=== PATIENT | male | born 1985 ===

== ENCOUNTER 2018-09-04 23:58 | Inpatient (IN) | payer OTHER ==
[2018-09-05 00:44] LABS: BASO # 0.1 K/uL (0.0-0.2); EOS # 0.2 K/uL (0.0-0.7); EOS % 2.9 % (0.0-4.0); HEMOGLOBIN 11.1 g/dL (12.0-18.0); LYMPH % 14.2 % (20.0-40.0); MEAN CELL VOLUME 88.9 fl (80.0-94.0); MEAN CORPUSCULAR HEMOGLOBIN 30.9 pg (27.0-31.0); MEAN CORPUSCULAR HGB CONC 34.8 g/dL (33.0-37.0); MEAN PLATELET VOLUME 8.2 fl (7.2-11.7); MONO # 0.5 K/uL (0.0-0.8); NEUT # 5.1 K/uL (1.8-7.0); NEUT % 74.9 % (50.0-75.0); RBC 3.58 Mil/uL (4.40-5.90); RED CELL DISTRIBUTION WIDTH 13.3 % (11.5-14.5); WHITE BLOOD COUNT 6.9 K/uL (4.8-10.8)
[2018-09-05 00:57] LABS: ALB/GLOB RATIO 1.1 (1.0-2.1); ALBUMIN 3.3 g/dL (3.5-5.0); ALT/SGPT 62 U/L (21-72); AST/SGOT 104 U/L (17-59); BLOOD UREA NITROGEN 74 mg/dl (9-20); CALCIUM 7.5 mg/dL (8.4-10.2); GFR NON-AFRICAN AMERICAN 7
--- NOTE | 2018-09-05 01:28 | ED PDOC ---
HPI: Hypertension/Hypotension Time Seen by Provider: 09/05/18 00:08 Chief Complaint (Nursing): High Blood Pressure Chief Complaint (Provider): HTN History Per: Patient History/Exam Limitations: no limitations Onset/Duration Of Symptoms: Days (x3 months), Worse Since (today) Current Symptoms Are (Timing): Still Present Additional Complaint(s): 32 year old male presents to the ED for evaluation of hypertension. He reports that three months ago, he was taken to [place] for intoxication, and upon d/c was informed he had HTN, but was not given outpatient follow up or medications. 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 Otherwise, denies chest pain and headache. PMD: none provided Past Medical History Reviewed: Historical Data, Nursing Documentation, Vital Signs Vital Signs: Last Vital Signs Temp 98.9 F 09/05/18 00:00 Pulse 89 09/05/18 00:49 Resp 20 09/05/18 00:00 BP 210/108 H 09/05/18 00:49 Pulse Ox 98 09/05/18 00:00 - Medical History PMH: HTN - Surgical History Surgical History: No Surg Hx - Family History Family History: States: Unknown Family Hx - Social History Current smoker - smoking cessation education provided: No Alcohol: None Drugs: Denies - Allergies Allergies/Adverse Reactions: Allergies Allergy/AdvReac Type Severity Reaction Status Date / Time No Known Allergies Allergy Verified 09/05/18 00:02 Review of Systems ROS Statement: Except As Marked, All Systems Reviewed And Found Negative Constitutional: Positive for: Weakness Cardiovascular: Negative for: Chest Pain Respiratory: Positive for: Shortness of Breath Neurological: Negative for: Headache Physical Exam - Reviewed Nursing Documentation Reviewed: Yes Vital Signs Reviewed: Yes - Physical Exam Appears: Positive for: No Acute Distress (but hypertensive) Head Exam: Positive for: ATRAUMATIC (but with old scar to left side of head from "traumatic head injury" 7 months ago), NORMOCEPHALIC Skin: Positive for: Normal Color, Warm, Dry Eye Exam: Positive for: Normal appearance, EOMI, PERRL ENT: Positive for: Normal ENT Inspection Neck: Positive for: Normal, Painless ROM, Supple Cardiovascular/Chest: Positive for: Regular Rate, Rhythm Respiratory: Positive for: Normal Breath Sounds. Negative for: Respiratory Dis tress Gastrointestinal/Abdominal: Positive for: Normal Exam, Soft. Negative for: Tenderness Neurologic/Psych: Positive for: Alert, Oriented (x3) - Laboratory Results Result Diagrams: 09/05/18 00:30 09/05/18 00:30 - ECG O2 Sat by Pulse Oximetry: 98 (RA) Pulse Ox Interpretation: Normal Medical Decision Making Medical Decision Making: Time: 14 Initial Impression: 32 year old male with accelerated HTN Initial Plan: --EKG --Alcohol serum --CMP --Drug screen --U-dip --CBC with differential --CXR --Norvasc 10mg PO --Urinalysis 0148 Labs reviewed and indicative of an acute kidney injury in setting of accelerated HTN. Patient uninsured and will require admission for further treatment. Pt in fair condition. [address] Perdomo, spinning bath person, about case. Scribe Attestation: Documented by Desiree Kingsley, acting as a scribe for Chris Maxwell MD. Provider Scribe Attestation: All medical record entries made by the Scribe were at my direction and personally dictated by me. I have reviewed the chart and agree that the record accurately reflects my personal performance of the history, physical exam, medical decision making, and the department course for this patient. I have also personally directed, reviewed, and agree with the discharge instructions and disposition. Disposition - Clinical Impression Clinical Impression: MADAI (acute kidney injury), Accelerated hypertension - Patient ED Disposition Is Patient to be Admitted: Yes - Disposition Disposition Time: 01:45 Condition: FAIR
[2018-09-05 02:28] LABS: URINE BILIRUBIN NEGATIVE (NEGATIVE); URINE BLOOD SMALL (NEGATIVE); URINE CLARITY CLEAR (Clear); URINE COLOR STRAW (YELLOW); URINE GLUCOSE (UA) 50 mg/dL (Normal); URINE LEUKOCYTE ESTERASE NEG Leu/uL (Negative); URINE PROTEIN >=500 mg/dL (NEGATIVE); URINE UROBILINOGEN 0.2-1.0 mg/dL (0.2-1.0)
[2018-09-05 02:29] LABS: SQUAMOUS EPITHIAL 6 /hpf (0-5)
[2018-09-05 02:36] LABS: BARBITURATES, UR NEGATIVE (NEGATIVE); BENZODIAZEPINES, UR NEGATIVE (NEGATIVE); OPIATES, UR NEGATIVE (NEGATIVE); PHENCYCLIDINE, UR NEGATIVE (NEGATIVE)
--- NOTE | 2018-09-05 03:10 | CP.PCM.HP ---
Addendum entered and electronically signed by Barby Hernández DO 09/05/18 13:22: Seen, examined, and discussed with resident. Also discussed with Cardiology. Patient was evaluated by Nephrology. Consults all appreciated and followed. Patient with EKG changes this AM, possibly concerning with ischemic changes vs. LVH in setting of acute renal failure. Patient requiring dialysis, to get temp cath placed today by IR. Will initiate low dose BB. ASA, plavix post placement of temp cath. ECHO also ordered and pending. Addendum entered and electronically signed by Mya Hunt MD 09/05/18 10:24: Pt seen and examined by ED this AM. 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 Pt came to the ED for not feeling well and vague discomfort which he attributes to his BP, feels a little better now. Denies chest pain, dyspnea, palpatations, diaphoresis, n/v/d/c headaches and dizziness. O: VS reviewed, hypertensive GEN: NAD C: S1S2, no murmurs R: clear breath sounds b/l A: BS+, soft, NT Neuro: AAO x 3 Ext: non-tender, no edema A/P: 32 YO male admitted for acute renal failure. New findings sig for pers istent elevated creatinine despite hydration. Additionally there was ST wave changes in new EKG this AM along with elevated trop x 1, asymptomatic. -cardiology consulted; likely trop elevation 2/2 to renal failure, unlikely to be cardiac in nature. Beta rebecca, statin and asa to be started later. -nephrology consulted; likely need dialysis due to renal failure -IR consulted for cath for dialysis -echo ordered, renal u/s ordered -labs pending -will order low dose beta rebecca as per cardiology Original Note: <Fanta Rubi - Last Filed: 09/05/18 06:29> History of Present Illness - History of Present Illness History of Present Illness: 32 year old male presented with complaints of chest discomfort that began prior to arrival in ED. He endorses that he was diagnosed with high blood pressure approximately 3 months ago at [place] and was told to follow up outpatient. He does not take medication and did not seek medical care after this. He denies feeling any headaches, chest pain, abdominal pain, nausea, vomiting, changes in urination, myalgias, pedal edema. He reports that he has noted some dyspnea on exertion lately. He does not have family hx of renal disease. Mother is hypertensive. He currently has no complaints in ED. PMH: HTN Medications: none Allergies: NKDA Social: light smoker- one cig/week, social drinker now, used to be heavy drinker Surgical Hx: denies FAmily hx: mother HTN Present on Admission - Present on Admission Any Indicators Present on Admission: No Review of Systems - Constitutional Constitutional: absent: Chills, Fever, Headache - EENT Eyes: absent: Blurred Vision, Change in Vision Ears: absent: Dizziness - Cardiovascular Cardiovascular: Chest Pain, Dyspnea on Exertion. absent: Leg Edema, Lightheadedness, Pedal Edema, Radiating Pain, Rapid Heart Rate - Respiratory Respiratory: absent: Cough - Gastrointestinal Gastrointestinal: absent: Abdominal Pain, Nausea, Vomiting - Genitourinary Genitourinary: absent: Change in Urinary Stream, Dysuria, Hematuria, Urinary Urg ency, Voiding Freq/Small Amts - Musculoskeletal Musculoskeletal: absent: Myalgias, Tingling - Integumentary Integumentary: absent: Jaundice Past Patient History - Past Social History Alcohol: None Drugs: Denies - CARDIAC Hx Hypertension: Yes - PSYCHIATRIC Hx Substance Use: No Meds Allergies/Adverse Reactions: Allergies Allergy/AdvReac Type Severity Reaction Status Date / Time No Known Allergies Allergy Verified 09/05/18 00:02 Physical Exam - Constitutional Appears: Well, Non-toxic, No Acute Distress - Head Exam Head Exam: ATRAUMATIC, NORMAL INSPECTION, NORMOCEPHALIC - Eye Exam Eye Exam: EOMI, Normal appearance, PERRL Additional comments: b/l pterygium - Neck Exam Neck exam: Positive for: Normal Inspection - Respiratory Exam Respiratory Exam: Clear to Auscultation Bilateral, NORMAL BREATHING PATTERN. absent: Rales, Rhonchi, Wheezes, Respiratory Distress - Cardiovascular Exam Cardiovascular Exam: REGULAR RHYTHM, +S1, +S2. absent: Tachycardia - GI/Abdominal Exam GI & Abdominal Exam: Normal Bowel Sounds, Soft. absent: Distended, Guarding, Tenderness - Extremities Exam Extremities exam: Positive for: normal inspection. Negative for: pedal edema - Back Exam Back exam: NORMAL INSPECTION - Neurological Exam Neurological exam: Alert - Psychiatric Exam Psychiatric exam: Normal Affect, Normal Mood - Skin Skin Exam: Dry, Intact, Normal Color, Warm Results - Vital Signs Recent Vital Signs: Last Vital Signs Temp 98.9 F 09/05/18 00:00 Pulse 84 09/05/18 02:51 Resp 16 09/05/18 02:51 BP 150/86 09/05/18 02:51 Pulse Ox 96 09/05/18 02:51 - Labs Result Diagrams: 09/05/18 00:30 09/05/18 00:30 Labs: Laboratory Results - last 24 hr 09/05/18 09/05/18 09/05/18 00:30 00:30 01:58 WBC 6.9 RBC 3.58 L Hgb 11.1 L Hct 31.8 L MCV 88.9 MCH 30.9 MCHC 34.8 RDW 13.3 Plt Count 158 MPV 8.2 Neut % (Auto) 74.9 Lymph % (Auto) 14.2 L [place] % (Auto) 7.0 Eos % (Auto) 2.9 Baso % (Auto) 1.0 Neut # (Auto) 5.1 Lymph # (Auto) 1.0 [place] # (Auto) 0.5 Eos # (Auto) 0.2 Baso # (Auto) 0.1 Sodium 133 Potassium 3.4 L Chloride 103 Carbon Dioxide 20 L Anion Gap 13 BUN 74 H Creatinine 9.2 H* Est GFR ( Amer) 8 Est GFR (Non-Af Amer) 7 Random Glucose 103 Serum Osmolality Calcium 7.5 L Total Bilirubin 0.4 AST 104 H ALT 62 Alkaline Phosphatase 104 Total Protein 6.4 Albumin 3.3 L Globulin 3.1 Albumin/Globulin Ratio 1.1 Urine Color Urine Clarity Urine pH Ur Specific [place] Urine Protein Urine Glucose (UA) Urine Ketones Urine Blood Urine Nitrate Urine Bilirubin Urine Urobilinogen Ur Leukocyte Esterase Urine RBC (Auto) Urine Microscopic WBC Ur Squamous Epith Cells Urine Osmolality Ur Random Sodium Ur Random Potassium Urine Opiates Screen Negative Urine Methadone Screen Negative Ur Barbiturates Screen Negative Ur Phencyclidine Scrn Negative Ur Amphetamines Screen Negative U Benzodiazepines Scrn Negative U Oth Cocaine Metabols Negative U Cannabinoids Screen Negative Alcohol, Quantitative < 10 09/05/18 09/05/18 09/05/18 01:58 01:58 01:58 WBC RBC Hgb Hct MCV MCH MCHC RDW Plt Count MPV Neut % (Auto) Lymph % (Auto) [place] % (Auto) Eos % (Auto) Baso % (Auto) Neut # (Auto) Lymph # (Auto) [place] # (Auto) Eos # (Auto) Baso # (Auto) Sodium Potassium Chloride Carbon Dioxide Anion Gap BUN Creatinine Est GFR ( Amer) Est GFR (Non-Af Amer) Random Glucose Serum Osmolality 316 H Calcium Total Bilirubin AST ALT Alkaline Phosphatase Total Protein Albumin Globulin Albumin/Globulin Ratio Urine Color Straw Urine Clarity Clear Urine pH 7.0 Ur Specific [place] 1.008 Urine Protein >=500 Urine Glucose (UA) 50 Urine Ketones Negative Urine Blood Small Urine Nitrate Negative Urine Bilirubin Negative Urine Urobilinogen 0.2-1.0 Ur Leukocyte Esterase Neg Urine RBC (Auto) 15 H Urine Microscopic WBC 13 H Ur Squamous Epith Cells 6 H Urine Osmolality 260 L Ur Random Sodium 51 Ur Random Potassium 20.7 Urine Opiates Screen Urine Methadone Screen Ur Barbiturates Screen Ur Phencyclidine Scrn Ur Amphetamines Screen U Benzodiazepines Scrn U Oth Cocaine Metabols U Cannabinoids Screen Alcohol, Quantitative Assessment & Plan - Assessment and Plan (Free Text) Assessment: 32 year old male presented with complaints of chest pain, found to have acute kidney injury. 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 MADAI could be prerenal vs intrinsic renal disease. Rule out rhabdo, pheochromocytoma, vasculitic dz. He is currently hypertensive in ED but is asymptomatic, received norvasc and clonidine in ED. #Acute Kidney Injury #Proteinuria #Anemia #DVT prophylaxis -IVF -follow up labs -Renal u/s and renal doppler -Monitor Ins / Outs -Monitor BP -Nephrology consult -SCDs Patient seen and examined with attending. <Fadi Baca - Last Filed: 09/05/18 06:59> Results - Vital Signs Recent Vital Signs: Last Vital Signs Temp 98.0 F 09/05/18 05:34 Pulse 79 09/05/18 06:37 Resp 16 09/05/18 06:36 BP 156/97 H 09/05/18 06:37 Pulse Ox 94 L 09/05/18 06:36 - Labs Result Diagrams: 09/05/18 05:30 09/05/18 00:30 Labs: Laboratory Results - last 24 hr 09/05/18 09/05/18 09/05/18 00:30 00:30 01:58 WBC 6.9 RBC 3.58 L Hgb 11.1 L Hct 31.8 L MCV 88.9 MCH 30.9 MCHC 34.8 RDW 13.3 Plt Count 158 MPV 8.2 Neut % (Auto) 74.9 Lymph % (Auto) 14.2 L [place] % (Auto) 7.0 Eos % (Auto) 2.9 Baso % (Auto) 1.0 Neut # (Auto) 5.1 Lymph # (Auto) 1.0 [place] # (Auto) 0.5 Eos # (Auto) 0.2 Baso # (Auto) 0.1 Sodium 133 Potassium 3.4 L Chloride 103 Carbon Dioxide 20 L Anion Gap 13 BUN 74 H Creatinine 9.2 H* Est GFR ( Amer) 8 Est GFR (Non-Af Amer) 7 Random Glucose 103 Serum Osmolality Calcium 7.5 L Phosphorus Magnesium Total Bilirubin 0.4 AST 104 H ALT 62 Alkaline Phosphatase 104 Total Creatine Kinase Total Protein 6.4 Albumin 3.3 L Globulin 3.1 Albumin/Globulin Ratio 1.1 Triglycerides Cholesterol LDL Cholesterol Direct HDL Cholesterol Urine Color Urine Clarity Urine pH Ur Specific [place] Urine Protein Urine Glucose (UA) Urine Ketones Urine Blood Urine Nitrate Urine Bilirubin Urine Urobilinogen Ur Leukocyte Esterase Urine RBC (Auto) Urine Microscopic WBC Ur Squamous Epith Cells Urine Osmolality Ur Random Sodium Ur Random Potassium Urine Opiates Screen Negative Urine Methadone Screen Negative Ur Barbiturates Screen Negative Ur Phencyclidine Scrn Negative Ur Amphetamines Screen Negative U Benzodiazepines Scrn Negative U Oth Cocaine Metabols Negative U Cannabinoids Screen Negative Alcohol, Quantitative < 10 09/05/18 09/05/18 09/05/18 01:58 01:58 01:58 WBC RBC Hgb Hct MCV MCH MCHC RDW Plt Count MPV Neut % (Auto) Lymph % (Auto) [place] % (Auto) Eos % (Auto) Baso % (Auto) Neut # (Auto) Lymph # (Auto) [place] # (Auto) Eos # (Auto) Baso # (Auto) Sodium Potassium Chloride Carbon Dioxide Anion Gap BUN Creatinine Est GFR ( Amer) Est GFR (Non-Af Amer) Random Glucose Serum Osmolality 316 H Calcium Phosphorus Magnesium Total Bilirubin AST ALT Alkaline Phosphatase Total Creatine Kinase Total Protein Albumin Globulin Albumin/Globulin Ratio Triglycerides Cholesterol LDL Cholesterol Direct HDL Cholesterol Urine Color Straw Urine Clarity Clear Urine pH 7.0 Ur Specific [place] 1.008 Urine Protein >=500 Urine Glucose (UA) 50 Urine Ketones Negative Urine Blood Small Urine Nitrate Negative Urine Bilirubin Negative Urine Urobilinogen 0.2-1.0 Ur Leukocyte Esterase Neg Urine RBC (Auto) 15 H Urine Microscopic WBC 13 H Ur Squamous Epith Cells 6 H Urine Osmolality 260 L Ur Random Sodium 51 Ur Random Potassium 20.7 Urine Opiates Screen Urine Methadone Screen Ur Barbiturates Screen Ur Phencyclidine Scrn Ur Amphetamines Screen U Benzodiazepines Scrn U Oth Cocaine Metabols U Cannabinoids Screen Alcohol, Quantitative 09/05/18 09/05/18 09/05/18 04:40 05:00 05:30 WBC 5.8 RBC 3.55 L Hgb 10.9 L Hct 31.6 L MCV 88.8 MCH 30.5 MCHC 34.4 RDW 13.3 Plt Count 143 MPV Neut % (Auto) Lymph % (Auto) [place] % (Auto) Eos % (Auto) Baso % (Auto) Neut # (Auto) Lymph # (Auto) [place] # (Auto) Eos # (Auto) Baso # (Auto) Sodium Potassium Chloride Carbon Dioxide Anion Gap BUN Creatinine Est GFR ( Amer) Est GFR (Non-Af Amer) Random Glucose Serum Osmolality Calcium Phosphorus 5.4 H Magnesium 2.4 H Total Bilirubin AST ALT Alkaline Phosphatase Total Creatine Kinase 341 H Total Protein Albumin Globulin Albumin/Globulin Ratio Triglycerides 184 H Cholesterol 245 H LDL Cholesterol Direct 137 H HDL Cholesterol 66 Urine Color Urine Clarity Urine pH Ur Specific [place] Urine Protein Urine Glucose (UA) Urine Ketones Urine Blood Urine Nitrate Urine Bilirubin Urine Urobilinogen Ur Leukocyte Esterase Urine RBC (Auto) Urine Microscopic WBC Ur Squamous Epith Cells Urine Osmolality Ur Random Sodium Ur Random Potassium Urine Opiates Screen Urine Methadone Screen Ur Barbiturates Screen Ur Phencyclidine Scrn Ur Amphetamines Screen U Benzodiazepines Scrn U Oth Cocaine Metabols U Cannabinoids Screen Alcohol, Quantitative Assessment & Plan - Assessment and Plan (Free Text) Plan: agree with assessment and plan as above. 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 He admitted to me that he doesn't drink but like 1-2 cups of water in a 24 hr period. He sweats a lot in his job and doesn't drink water, at the time of my exam he was clinically dry with poor skin turgor and dry mouth with cracked lips. Last intake of water yesterday at around 6-7 pm he says. Need to rule out Rhabdomyolysis, knowing this information, will also order HTN workup which could include for Pheo, Polycystic kidneys, Lupus nephritis, etc. but in my opininion will await cpk levels and give him hydration for now. PT was here with malignant blood pressure and hypertensive emergency and received clonidine and norvasc with results. Will continue norvasc and adjust medications PRN. Will endorse to AM TEAM. - Date & Time Date: 09/05/18 Time: 06:59
[2018-09-05] MEDS ORDERED: Sodium Chloride 0.9% 500 ML IV ONE (06:10)
[2018-09-05 06:28] LABS: HEMOGLOBIN 10.9 g/dL (12.0-18.0); MEAN CELL VOLUME 88.8 fl (80.0-94.0); MEAN CORPUSCULAR HEMOGLOBIN 30.5 pg (27.0-31.0); MEAN CORPUSCULAR HGB CONC 34.4 g/dL (33.0-37.0); RBC 3.55 Mil/uL (4.40-5.90); RED CELL DISTRIBUTION WIDTH 13.3 % (11.5-14.5); WHITE BLOOD COUNT 5.8 K/uL (4.8-10.8)
[2018-09-05] MEDS: Sodium Chloride 0.9% 1,000 ML IV SCH (06:40)
[2018-09-05 06:53] LABS: CALCIUM 7.6 mg/dL (8.4-10.2)
[2018-09-05] MEDS ORDERED: Potassium Chloride 20 mEq ER Tab PO ONE ×2 (06:59→07:16)
[2018-09-05 07:39] LABS: TROPONIN I 0.452 ng/mL (0.00-0.120)
--- NOTE | 2018-09-05 08:43 | RAD ---
Date of service: 09/05/2018 HISTORY: Chest pain COMPARISON: No prior. FINDINGS: LUNGS: The lungs are well inflated. There is mild pulmonary venous congestion. PLEURA: No pleural effusions or pneumothorax. CARDIOVASCULAR: There is severe cardiomegaly. No aortic atherosclerotic calcification present. OSSEOUS STRUCTURES: Within normal limits for the patient's age. VISUALIZED UPPER ABDOMEN: Normal. OTHER FINDINGS: None. IMPRESSION: Severe cardiomegaly and mild pulmonary venous congestion. No acute findings.
--- NOTE | 2018-09-05 10:32 | CP.PCM.CON ---
History of Present Illness - History of Present Illness History of Present Illness: This 32-year-old man came to the emergency room because "he did not feel well". He denies any specific complaints of chest chest pain or shortness of breath. 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 He was told of being a hypertensive 3 months back during a visit to the emergency room at [facility]. He has not taken any particular medication. He smokes approximately a single cigarette a day. He denies any history of diabetes He denies any history of pedal edema or orthopnea. He is able to carry on a conversation while lying virtually flat in bed. Physical examination shows a young man who is alert awake coherent afebrile and breathes at 16 breaths per minute while lying flat in bed and indicates that his free of any particular symptom at this time. His heart rate was 70 bpm and his blood pressure was 150/100 mmHg. His jugular venous pressure was not elevated and there was no edema over his lower extremities. The pedal pulses were well fe lt. There were no carotid bruits. The apex was not palpable. The first and second heart sounds were normal. There was no murmur or gallop. There were no rales. His abdomen was soft and liver and spleen are not palpable. His electrocardiogram taken around midnight shows sinus rhythm with left ventric ular hypertrophy and attendant ST-T changes. An electrocardiogram taken this morning at 9:30 shows left ventricular hypertrophy with more pronounced T-wave inversion in leads V2 and V3 which was not seen on earlier electrocardiogram. The patient has not reported any particular symptom prior to the second electrocardiogram. Lab data shows a normocytic normochromic anemia with severe as ischemia in the form of a BUN at 70 mg percent and creatinine 9.5 mg percent. His serum potassium was 3.4 mEq per liter. Serum troponin level was 0.45 g per mL Impression: Uremia probably secondary to hypertension. Left ventricular hypertrophy secondary to hypertension. Mildly elevated troponin in a random blood sample in presence of severe azotemia. The electro-cardiographic changes noted at 9:30 AM are also on a random EKG taken without any particular episode of chest discomfort that has occurred betwe en the first and second electro-cardiogram. I doubt that the patient has acute coronary syndrome. He is hemodynamically stable and free of any chest discomfort and requires urgent hemodialysis. I have discussed this with the alarm service technician. The patient will get an echocardiogram to evaluate his left ventricular systolic function. In the meantime he has been started on antihypertensives with significant improvement in his blood pressure. Past Patient History - Past Social History Alcohol: None Drugs: Denies - CARDIAC Hx Hypertension: Yes - PSYCHIATRIC Hx Substance Use: No Meds Allergies/Adverse Reactions: Allergies Allergy/AdvReac Type Severity Reaction Status Date / Time No Known Allergies Allergy Verified 09/05/18 00:02 - Medications Medications: Current Medications Amlodipine Besylate (Norvasc) 10 mg PO DAILY JM Hydralazine HCl (Apresoline) 10 mg PO TID PRN PRN Reason: Systolic Blood Pressure Sodium Chloride (Sodium Chloride 0.9%) 1,000 mls @ 75 mls/hr IV .[id number] JM Stop: 09/06/18 06:06 Last Admin: 09/05/18 06:40 Dose: 75 mls/hr Results - Vital Signs Recent Vital Signs: Last Vital Signs Temp 98.0 F 09/05/18 05:34 Pulse 81 09/05/18 09:31 Resp 17 09/05/18 09:31 BP 166/99 H 09/05/18 09:31 Pulse Ox 97 09/05/18 09:31 - Labs Result Diagrams: 09/05/18 05:30 09/05/18 05:30 Labs: Laboratory Results - last 24 hr 09/05/18 09/05/18 09/05/18 00:30 00:30 01:58 WBC 6.9 RBC 3.58 L Hgb 11.1 L Hct 31.8 L MCV 88.9 MCH 30.9 MCHC 34.8 RDW 13.3 Plt Count 158 MPV 8.2 Neut % (Auto) 74.9 Lymph % (Auto) 14.2 L [place] % (Auto) 7.0 Eos % (Auto) 2.9 Baso % (Auto) 1.0 Neut # (Auto) 5.1 Lymph # (Auto) 1.0 [place] # (Auto) 0.5 Eos # (Auto) 0.2 Baso # (Auto) 0.1 Sodium 133 Potassium 3.4 L Chloride 103 Carbon Dioxide 20 L Anion Gap 13 BUN 74 H Creatinine 9.2 H* Est GFR ( Amer) 8 Est GFR (Non-Af Amer) 7 Random Glucose 103 Serum Osmolality Calcium 7.5 L Phosphorus Magnesium Total Bilirubin 0.4 AST 104 H ALT 62 Alkaline Phosphatase 104 Total Creatine Kinase Troponin I Total Protein 6.4 Albumin 3.3 L Globulin 3.1 Albumin/Globulin Ratio 1.1 Triglycerides Cholesterol LDL Cholesterol Direct HDL Cholesterol TSH 3rd Generation Urine Color Urine Clarity Urine pH Ur Specific [place] Urine Protein Urine Glucose (UA) Urine Ketones Urine Blood Urine Nitrate Urine Bilirubin Urine Urobilinogen Ur Leukocyte Esterase Urine RBC (Auto) Urine Microscopic WBC Ur Squamous Epith Cells Urine Osmolality Ur Random Sodium Ur Random Potassium Urine Opiates Screen Negative Urine Methadone Screen Negative Ur Barbiturates Screen Negative Ur Phencyclidine Scrn Negative Ur Amphetamines Screen Negative U Benzodiazepines Scrn Negative U Oth Cocaine Metabols Negative U Cannabinoids Screen Negative Alcohol, Quantitative < 10 09/05/18 09/05/18 09/05/18 01:58 01:58 01:58 WBC RBC Hgb Hct MCV MCH MCHC RDW Plt Count MPV Neut % (Auto) Lymph % (Auto) [place] % (Auto) Eos % (Auto) Baso % (Auto) Neut # (Auto) Lymph # (Auto) [place] # (Auto) Eos # (Auto) Baso # (Auto) Sodium Potassium Chloride Carbon Dioxide Anion Gap BUN Creatinine Est GFR ( Amer) Est GFR (Non-Af Amer) Random Glucose Serum Osmolality 316 H Calcium Phosphorus Magnesium Total Bilirubin AST ALT Alkaline Phosphatase Total Creatine Kinase Troponin I Total Protein Albumin Globulin Albumin/Globulin Ratio Triglycerides Cholesterol LDL Cholesterol Direct HDL Cholesterol TSH 3rd Generation Urine Color Straw Urine Clarity Clear Urine pH 7.0 Ur Specific [place] 1.008 Urine Protein >=500 Urine Glucose (UA) 50 Urine Ketones Negative Urine Blood Small Urine Nitrate Negative Urine Bilirubin Negative Urine Urobilinogen 0.2-1.0 Ur Leukocyte Esterase Neg Urine RBC (Auto) 15 H Urine Microscopic WBC 13 H Ur Squamous Epith Cells 6 H Urine Osmolality 260 L Ur Random Sodium 51 Ur Random Potassium 20.7 Urine Opiates Screen Urine Methadone Screen Ur Barbiturates Screen Ur Phencyclidine Scrn Ur Amphetamines Screen U Benzodiazepines Scrn U Oth Cocaine Metabols U Cannabinoids Screen Alcohol, Quantitative 09/05/18 09/05/18 09/05/18 04:40 05:00 05:30 WBC 5.8 RBC 3.55 L Hgb 10.9 L Hct 31.6 L MCV 88.8 MCH 30.5 MCHC 34.4 RDW 13.3 Plt Count 143 MPV Neut % (Auto) Lymph % (Auto) [place] % (Auto) Eos % (Auto) Baso % (Auto) Neut # (Auto) Lymph # (Auto) [place] # (Auto) Eos # (Auto) Baso # (Auto) Sodium Potassium Chloride Carbon Dioxide Anion Gap BUN Creatinine Est GFR ( Amer) Est GFR (Non-Af Amer) Random Glucose Serum Osmolality Calcium Phosphorus 5.4 H Magnesium 2.4 H Total Bilirubin AST ALT Alkaline Phosphatase Total Creatine Kinase 341 H Troponin I Total Protein Albumin Globulin Albumin/Globulin Ratio Triglycerides 184 H Cholesterol 245 H LDL Cholesterol Direct 137 H HDL Cholesterol 66 TSH 3rd Generation Urine Color Urine Clarity Urine pH Ur Specific [place] Urine Protein Urine Glucose (UA) Urine Ketones Urine Blood Urine Nitrate Urine Bilirubin Urine Urobilinogen Ur Leukocyte Esterase Urine RBC (Auto) Urine Microscopic WBC Ur Squamous Epith Cells Urine Osmolality Ur Random Sodium Ur Random Potassium Urine Opiates Screen Urine Methadone Screen Ur Barbiturates Screen Ur Phencyclidine Scrn Ur Amphetamines Screen U Benzodiazepines Scrn U Oth Cocaine Metabols U Cannabinoids Screen Alcohol, Quantitative 09/05/18 09/05/18 05:30 06:54 WBC RBC Hgb Hct MCV MCH MCHC RDW Plt Count MPV Neut % (Auto) Lymph % (Auto) [place] % (Auto) Eos % (Auto) Baso % (Auto) Neut # (Auto) Lymph # (Auto) [place] # (Auto) Eos # (Auto) Baso # (Auto) Sodium 134 Potassium 3.4 L Chloride 105 Carbon Dioxide 21 L Anion Gap 11 BUN 70 H Creatinine 9.5 H* Est GFR ( Amer) 8 Est GFR (Non-Af Amer) 6 Random Glucose 87 Serum Osmolality Calcium 7.6 L Phosphorus Magnesium Total Bilirubin AST ALT Alkaline Phosphatase Total Creatine Kinase 328 H Troponin I 0.4520 H* Total Protein Albumin Globulin Albumin/Globulin Ratio Triglycerides Cholesterol LDL Cholesterol Direct HDL Cholesterol TSH 3rd Generation 4.60 Urine Color Urine Clarity Urine pH Ur Specific [place] Urine Protein Urine Glucose (UA) Urine Ketones Urine Blood Urine Nitrate Urine Bilirubin Urine Urobilinogen Ur Leukocyte Esterase Urine RBC (Auto) Urine Microscopic WBC Ur Squamous Epith Cells Urine Osmolality Ur Random Sodium Ur Random Potassium Urine Opiates Screen Urine Methadone Screen Ur Barbiturates Screen Ur Phencyclidine Scrn Ur Amphetamines Screen U Benzodiazepines Scrn U Oth Cocaine Metabols U Cannabinoids Screen Alcohol, Quantitative
--- NOTE | 2018-09-05 10:36 | CP.PCM.CON ---
History of Present Illness - History of Present Illness History of Present Illness: 32 y/o male with Hx/o HTN presented to ER for c/o not feeling well,generalized weakness sob on & off & CP before arriving in ER. Pt was noted to have BUN/ Creat of 74/9.2. In addition Pts blood pressure was 210/108. Hence renal Consult is requested . Pt reported that he has not been feeling well for 3 mos. He went to [facility] & was told that his BP was high & that he should f/u with his doctor. Pt was unable to have medical f/u. Pt denied any other medical problems. Denied any FHx/o Kidney dis. Review of Systems - Constitutional Constitutional: As Per HPI Past Patient History - Past Social History Alcohol: None Drugs: Denies - CARDIAC Hx Hypertension: Yes - PSYCHIATRIC Hx Substance Use: No Meds Allergies/Adverse Reactions: Allergies Allergy/AdvReac Type Severity Reaction Status Date / Time No Known Allergies Allergy Verified 09/05/18 00:02 - Medications Medications: Current Medications Amlodipine Besylate (Norvasc) 10 mg PO DAILY JM Carvedilol (Coreg) 6.25 mg PO Q12 JM Hydralazine HCl (Apresoline) 10 mg PO TID PRN PRN Reason: Systolic Blood Pressure Sodium Chloride (Sodium Chloride 0.9%) 1,000 mls @ 75 mls/hr IV .[id number] JM Stop: 09/06/18 06:06 Last Admin: 09/05/18 06:40 Dose: 75 mls/hr Physical Exam - Constitutional Additional comments: Appears uncomfortable because of generalized malaise. No dyspnea noted No asterixis - Head Exam Head Exam: ATRAUMATIC, NORMOCEPHALIC - Eye Exam Additional comments: Conjunctiva pale .Sclera anicteric - ENT Exam ENT Exam: Mucous Membranes Moist - Neck Exam Additional comments: No jugular venous distension - Respiratory Exam Respiratory Exam: NORMAL BREATHING PATTERN Additional comments: Slightly diminished BS at bases - Cardiovascular Exam Cardiovascular Exam: REGULAR RHYTHM Additional comments: Friction rub audible at LSB - GI/Abdominal Exam GI & Abdominal Exam: Soft Additional comments: No tenderness. Liver span is normal No mass No CVA tenderness - Rectal Exam Rectal Exam: Deferred - Extremities Exam Additional comments: No ECC PP palp Results - Vital Signs Recent Vital Signs: Last Vital Signs Temp 98.0 F 09/05/18 05:34 Pulse 81 09/05/18 09:31 Resp 17 09/05/18 09:31 BP 166/99 H 09/05/18 09:31 Pulse Ox 97 09/05/18 09:31 - Labs Result Diagrams: 09/05/18 05:30 09/05/18 05:30 Labs: Laboratory Results - last 24 hr 09/05/18 09/05/18 09/05/18 00:30 00:30 01:58 WBC 6.9 RBC 3.58 L Hgb 11.1 L Hct 31.8 L MCV 88.9 MCH 30.9 MCHC 34.8 RDW 13.3 Plt Count 158 MPV 8.2 Neut % (Auto) 74.9 Lymph % (Auto) 14.2 L [place] % (Auto) 7.0 Eos % (Auto) 2.9 Baso % (Auto) 1.0 Neut # (Auto) 5.1 Lymph # (Auto) 1.0 [place] # (Auto) 0.5 Eos # (Auto) 0.2 Baso # (Auto) 0.1 Sodium 133 Potassium 3.4 L Chloride 103 Carbon Dioxide 20 L Anion Gap 13 BUN 74 H Creatinine 9.2 H* Est GFR ( Amer) 8 Est GFR (Non-Af Amer) 7 Random Glucose 103 Serum Osmolality Calcium 7.5 L Phosphorus Magnesium Total Bilirubin 0.4 AST 104 H ALT 62 Alkaline Phosphatase 104 Total Creatine Kinase Troponin I Total Protein 6.4 Albumin 3.3 L Globulin 3.1 Albumin/Globulin Ratio 1.1 Triglycerides Cholesterol LDL Cholesterol Direct HDL Cholesterol TSH 3rd Generation Urine Color Urine Clarity Urine pH Ur Specific [place] Urine Protein Urine Glucose (UA) Urine Ketones Urine Blood Urine Nitrate Urine Bilirubin Urine Urobilinogen Ur Leukocyte Esterase Urine RBC (Auto) Urine Microscopic WBC Ur Squamous Epith Cells Urine Osmolality Ur Random Sodium Ur Random Potassium Urine Opiates Screen Negative Urine Methadone Screen Negative Ur Barbiturates Screen Negative Ur Phencyclidine Scrn Negative Ur Amphetamines Screen Negative U Benzodiazepines Scrn Negative U Oth Cocaine Metabols Negative U Cannabinoids Screen Negative Alcohol, Quantitative < 10 09/05/18 09/05/18 09/05/18 01:58 01:58 01:58 WBC RBC Hgb Hct MCV MCH MCHC RDW Plt Count MPV Neut % (Auto) Lymph % (Auto) [place] % (Auto) Eos % (Auto) Baso % (Auto) Neut # (Auto) Lymph # (Auto) [place] # (Auto) Eos # (Auto) Baso # (Auto) Sodium Potassium Chloride Carbon Dioxide Anion Gap BUN Creatinine Est GFR ( Amer) Est GFR (Non-Af Amer) Random Glucose Serum Osmolality 316 H Calcium Phosphorus Magnesium Total Bilirubin AST ALT Alkaline Phosphatase Total Creatine Kinase Troponin I Total Protein Albumin Globulin Albumin/Globulin Ratio Triglycerides Cholesterol LDL Cholesterol Direct HDL Cholesterol TSH 3rd Generation Urine Color Straw Urine Clarity Clear Urine pH 7.0 Ur Specific [place] 1.008 Urine Protein >=500 Urine Glucose (UA) 50 Urine Ketones Negative Urine Blood Small Urine Nitrate Negative Urine Bilirubin Negative Urine Urobilinogen 0.2-1.0 Ur Leukocyte Esterase Neg Urine RBC (Auto) 15 H Urine Microscopic WBC 13 H Ur Squamous Epith Cells 6 H Urine Osmolality 260 L Ur Random Sodium 51 Ur Random Potassium 20.7 Urine Opiates Screen Urine Methadone Screen Ur Barbiturates Screen Ur Phencyclidine Scrn Ur Amphetamines Screen U Benzodiazepines Scrn U Oth Cocaine Metabols U Cannabinoids Screen Alcohol, Quantitative 09/05/18 09/05/18 09/05/18 04:40 05:00 05:30 WBC 5.8 RBC 3.55 L Hgb 10.9 L Hct 31.6 L MCV 88.8 MCH 30.5 MCHC 34.4 RDW 13.3 Plt Count 143 MPV Neut % (Auto) Lymph % (Auto) [place] % (Auto) Eos % (Auto) Baso % (Auto) Neut # (Auto) Lymph # (Auto) [place] # (Auto) Eos # (Auto) Baso # (Auto) Sodium Potassium Chloride Carbon Dioxide Anion Gap BUN Creatinine Est GFR ( Amer) Est GFR (Non-Af Amer) Random Glucose Serum Osmolality Calcium Phosphorus 5.4 H Magnesium 2.4 H Total Bilirubin AST ALT Alkaline Phosphatase Total Creatine Kinase 341 H Troponin I Total Protein Albumin Globulin Albumin/Globulin Ratio Triglycerides 184 H Cholesterol 245 H LDL Cholesterol Direct 137 H HDL Cholesterol 66 TSH 3rd Generation Urine Color Urine Clarity Urine pH Ur Specific [place] Urine Protein Urine Glucose (UA) Urine Ketones Urine Blood Urine Nitrate Urine Bilirubin Urine Urobilinogen Ur Leukocyte Esterase Urine RBC (Auto) Urine Microscopic WBC Ur Squamous Epith Cells Urine Osmolality Ur Random Sodium Ur Random Potassium Urine Opiates Screen Urine Methadone Screen Ur Barbiturates Screen Ur Phencyclidine Scrn Ur Amphetamines Screen U Benzodiazepines Scrn U Oth Cocaine Metabols U Cannabinoids Screen Alcohol, Quantitative 09/05/18 09/05/18 05:30 06:54 WBC RBC Hgb Hct MCV MCH MCHC RDW Plt Count MPV Neut % (Auto) Lymph % (Auto) [place] % (Auto) Eos % (Auto) Baso % (Auto) Neut # (Auto) Lymph # (Auto) [place] # (Auto) Eos # (Auto) Baso # (Auto) Sodium 134 Potassium 3.4 L Chloride 105 Carbon Dioxide 21 L Anion Gap 11 BUN 70 H Creatinine 9.5 H* Est GFR ( Amer) 8 Est GFR (Non-Af Amer) 6 Random Glucose 87 Serum Osmolality Calcium 7.6 L Phosphorus Magnesium Total Bilirubin AST ALT Alkaline Phosphatase Total Creatine Kinase 328 H Troponin I 0.4520 H* Total Protein Albumin Globulin Albumin/Globulin Ratio Triglycerides Cholesterol LDL Cholesterol Direct HDL Cholesterol TSH 3rd Generation 4.60 Urine Color Urine Clarity Urine pH Ur Specific [place] Urine Protein Urine Glucose (UA) Urine Ketones Urine Blood Urine Nitrate Urine Bilirubin Urine Urobilinogen Ur Leukocyte Esterase Urine RBC (Auto) Urine Microscopic WBC Ur Squamous Epith Cells Urine Osmolality Ur Random Sodium Ur Random Potassium Urine Opiates Screen Urine Methadone Screen Ur Barbiturates Screen Ur Phencyclidine Scrn Ur Amphetamines Screen U Benzodiazepines Scrn U Oth Cocaine Metabols U Cannabinoids Screen Alcohol, Quantitative Assessment & Plan - Assessment and Plan (Free Text) Assessment: 32 y/o male with Hx/o HTN presents with renal failure & uremia. It is not clear at this time if this is acute or chronic. Pt did not have any medical care in the past There is no improvement in renal function after over night IV hydration. Because of c/o CP ,abnormal EKG 7 the presence of friction rub Pt needs dialysis. CXR showed cardiomegaly & some vascular congestion . Need to be cautious with IV fluids. Etiology of kidney dis is not clear at this time. Probanly kid dis is due to hypertensive arteriolosclerosis Pt also appears to have heavy proteinuria. Other etiologies of proteinuria need to be ruled out including HIV. HTN is improved with meds. Plan: I have explained the need for dialysis & the dialysis procedure in detail to the Pt via bangladeshi interpretor Pt consented to dialysis. The complication associated with dialysis were also explained to Pt Renal US report is pending Will need dialysis catheter.
[2018-09-05 11:11] LABS: INR 0.9
[2018-09-05 11:14] LABS: PARTIAL THROMBOPLASTIN TIME 50.1 Seconds (25.6-37.1)
--- NOTE | 2018-09-05 11:17 | US ---
Date of service: 09/05/2018 PROCEDURE: Ultrasound of the Kidneys HISTORY: uncontrolled htn COMPARISON: None available. TECHNIQUE: Sonogram of the kidneys. FINDINGS: RIGHT KIDNEY: Measures: 9.1 x 5.0 x 3.1 cm. Fullness of the renal pelvis. Normal in size and contour. Increased cortical echogenicity. No stone, solid mass lesion or hydronephrosis visualized. LEFT KIDNEY: Measures: 9.4 x 4.7 x 5.8 cm. Upper pole cyst measuring 2.6 x 3.3 x 2.6 cm. Fullness of the renal pelvis. Normal in size and contour. Increased cortical echogenicity. No stone, solid mass lesion or hydronephrosis visualized. OTHER FINDINGS: Bilateral pleural effusions, partially imaged. IMPRESSION: Increased cortical echogenicity bilaterally compatible with medical renal disease. Mild fullness of both renal pelvises. Partially imaged bilateral pleural effusions.
--- NOTE | 2018-09-05 11:21 | US ---
Date of service: 09/05/2018 PROCEDURE: Ultrasonography renal arterial evaluation HISTORY: rule out renal artery stenosis COMPARISON: None available. TECHNIQUE: Real-time ultrasonography evaluation of the renal arteries were performed. Comparison is made to the aorta. FINDINGS: AORTA: Patent. Peak systolic velocity 136 centimeters/second RIGHT RENAL ARTERY: Renal artery to aorta ratio: 1.3 * Proximal segment: Patent. Peak systolic velocity 182 centimeters/second * Mid segment: Patent. Peak systolic velocity 49 centimeters/second * Distal segment: Patent. Peak systolic velocity 42 centimeters/second LEFT RENAL ARTERY: Renal artery to aorta ratio: 0.6 * Proximal segment: Patent. Peak systolic velocity 84 centimeters/second * Mid segment: Patent. Peak systolic velocity 50 centimeters/second * Distal segment: Patent. Peak systolic velocity 68 centimeters/second IMPRESSION: No evidence of renal artery stenosis.
[2018-09-05 11:22] LABS: PROTHROMBIN TIME 9.9 Seconds (9.8-13.1)
[2018-09-05] MEDS ORDERED: Lidocaine 1% Inj (20ml) ONE (12:28)
--- NOTE | 2018-09-05 12:48 | PCM.SURG1 ---
Surgeon's Initial Post Op Note - Surgeon's Notes Surgeon: Gustavo Guerra MD Front Office Specialist: NONE Type of Anesthesia: Local Pre-Operative Diagnosis: Acute renal failure Operative Findings: US showed a patent right IJV Post-Operative Diagnosis: Acute renal failure Operation Performed: Non tunneled HD catheter placement right IJV. Specimen/Specimens Removed: NONE Estimated Blood Loss: EBL {In ML}: 4 Blood Products Given: N/A Drains Used: No Drains Post-Op Condition: Fair Date of Surgery/Procedure: 09/05/18 Time of Surgery/Procedure: 12:45
[2018-09-05] MEDS ORDERED: Pneumococcal 23-Valent Vaccine IM ONE (13:00)
--- NOTE | 2018-09-05 13:44 | VASCULAR ---
PROCEDURE: Date of procedure: 09/05/2018 Procedure: Placement of a non tunneled hemodialysis catheter, CPT 69928 Medications: 6cc 1 percent lidocaine Radiation: 0.48 MGy Fluoro time: 3.7 Seconds Images saved: 2 HISTORY: Renal failure TECHNIQUE: Following informed consent, the patient's right neck was prepped and draped in the usual sterile fashion. Ultrasound showed a patent and compressible right internal jugular vein. After the skin was anesthetized with 1% lidocaine, the internal jugular vein was accessed under direct ultrasound guidance with micropuncture technique and a guidewire was advanced under fluoroscopic guidance into the SVC. The venotomy was then dilated to accommodate a non tunneled 15 hemodialysis catheter. An image documenting ultrasound guidance for vascular access was permanently saved. The catheter was tested and has adequate blood return for hemodialysis. The catheter was flushed and loaded with heparin per specified amounts. The catheter was secured to patient's skin. A dressing was applied. Post procedure chest x-ray showed a hemodialysis catheter at the caval atrial junction. IMPRESSION: Placement of a non tunneled 15 centimeter hemodialysis catheter via the right internal jugular vein. The tip of the catheter was confirmed with a postoperative chest x-ray and is at the cavoatrial junction. The catheter is functional ready for use.
--- NOTE | 2018-09-05 15:48 | CARD ---
APPROVED REPORT Date of service: 09/05/2018 EKG Measurement Heart [id number] <Conclusion> Normal sinus rhythm Left ventricular hypertrophy with repolarization abnormality Anterolateral T wave inversion, consider anterolateral ischemia Prolonged QT Abnormal ECG
--- NOTE | 2018-09-05 16:00 | CARD ---
APPROVED REPORT Date of service: 09/05/2018 EKG Measurement Heart [id number] <Conclusion> Normal sinus rhythm Left ventricular hypertrophy with repolarization abnormality Prolonged QT Abnormal ECG
[2018-09-05] MEDS ORDERED: Influenza Vaccine (5 YR UP)/PF 60 MCG/0.5 ML SYR IM ONE (17:42)
--- NOTE | 2018-09-05 19:01 | CARD ---
APPROVED REPORT Date of service: 09/05/2018 EXAM: Two-dimensional and M-mode echocardiogram with Doppler and color Doppler. Other Information Quality : ExcellentRhythm : NSR INDICATION Elevated Troponins 2D DIMENSIONS IVSd1.52 (0.7-1.1cm)LVDd4.97 (3.9-5.9cm) LVOT Diameter2.30 (1.8-2.4cm)PWd1.61 (0.7-1.1cm) IVSs1.76 (0.8-1.2cm)LVDs3.53 (2.5-4.0cm) FS (%) 29.0 %PWs2.27 (0.8-1.2cm) M-Mode DIMENSIONS Left Atrium (MM)4.94 (2.5-4.0cm)IVSd1.94 (0.7-1.1cm) Aortic Root3.19 (2.2-3.7cm)LVDd5.63 (4.0-5.6cm) Aortic Cusp Exc.2.00 (1.5-2.0cm)PWd1.38 (0.7-1.1cm) IVSs1.88 cmFS (%) 24 % LVDs4.25 (2.0-3.8cm)PWs1.78 cm Aortic Valve AoV Peak Vtnzpizw184.1cm/sAoV VTI20.1cmAO Peak GR.5mmHg LVOT Peak Jparfvdw53.8cm/sLVOT VTI17.34cmAO Mean GR.3mmHg AYAAN (VMAX)2.87hf4MER (VTI)1.95cm2 Mitral Valve MV E Eqpeulgl13.8cm/sMV DECEL [id number] A Rmbnsori07.0cm/s MV WXV95ixM/A ratio1.8MVA (PHT)3.70cm2 TDI Lateral E' Peak V8.47cm/sMedial E' Peak V5.62cm/sE/Lateral E'9.2 E/Medial E'13.8 Pulmonary Valve PV Peak Mvykhefd91.5cm/s LEFT VENTRICLE The left ventricle is normal size. There is moderate concentric left ventricular hypertrophy. The left ventricular systolic function is normal. The estimated ejection fraction is 50-55% No regional wall motion abnormalities noted.. Transmitral Doppler flow pattern is Grade II-pseudonormal filling dynamics. No left ventricle thrombus noted on this study. There is no ventricular septal defect visualized. There is no left ventricular aneurysm. There is no mass noted in the left ventricle. RIGHT VENTRICLE The right ventricle is normal size. There is normal right ventricular wall thickness. The right ventricular systolic function is normal. ATRIA The left atrium is moderately dilated. The right atrium size is normal. The interatrial septum is intact with no evidence for an atrial septal defect. AORTIC VALVE The aortic valve is normal in structure. Trace aortic regurgitation is present. There is no aortic valvular stenosis. There is no aortic valvular vegetation. MITRAL VALVE The mitral valve is normal in structure. There is no evidence of mitral valve prolapse. There is no mitral valve stenosis. There is mild to moderate mitral valve regurgitation noted. TRICUSPID VALVE The tricuspid valve is normal in structure. There is no tricuspid valve regurgitation noted. There is no tricuspid valve prolapse or vegetation. There is no tricuspid valve stenosis. PULMONIC VALVE The pulmonary valve is normal in structure. There is no pulmonic valvular regurgitation. There is no pulmonic valvular stenosis. GREAT VESSELS The aortic root is normal in size. The ascending aorta is normal in size. The pulmonary artery is normal. The IVC is normal in size and collapses >50% with inspiration. PERICARDIAL EFFUSION There is no pericardial effusion. There is no pleural effusion. <Conclusion> There is moderate concentric left ventricular hypertrophy. The estimated ejection fraction is 50-55% Global LV strain is abnormal ( -14). Transmitral Doppler flow pattern is Grade II-pseudonormal filling dynamics. The left atrium is moderately dilated. Trace aortic regurgitation is present. There is mild to moderate mitral valve regurgitation noted. There is mild to moderate pericardial effusion, more towards right atrium. No signs of tamponade.
[2018-09-05 20:23] LABS: COMPLEMENT C4 34.2 mg/dL (14.0-44.0)
[2018-09-05 20:50] LABS: HEPATITIS B SURFACE AG Negative (NEGATIVE)
[2018-09-05 20:55] LABS: HEPATITIS B CORE AB NEGATIVE (NEGATIVE)
[2018-09-05 21:07] LABS: HEPATITIS C ANTIBODY NEGATIVE (NEGATIVE)
[2018-09-05 21:30] LABS: CALCIUM 7.6 mg/dL (8.4-10.2)
[2018-09-06] MEDS ORDERED: Potassium Chloride 20 mEq ER Tab PO ONE (01:37)
[2018-09-06] MEDS: Sodium Chloride 0.9% 1,000 ML IV SCH (02:00)
[2018-09-06 05:47] LABS: EOS # 0.2 K/uL (0.0-0.7); EOS % 4.6 % (0.0-4.0); HEMOGLOBIN 10.5 g/dL (12.0-18.0); MEAN CORPUSCULAR HEMOGLOBIN 30.7 pg (27.0-31.0); MEAN CORPUSCULAR HGB CONC 34.9 g/dL (33.0-37.0); MEAN PLATELET VOLUME 8.3 fl (7.2-11.7); MONO # 0.5 K/uL (0.0-0.8); MONO % 10.5 % (0.0-10.0); NEUT # 2.9 K/uL (1.8-7.0); NEUT % 61.9 % (50.0-75.0); RBC 3.43 Mil/uL (4.40-5.90); RED CELL DISTRIBUTION WIDTH 12.8 % (11.5-14.5); WHITE BLOOD COUNT 4.6 K/uL (4.8-10.8)
[2018-09-06 06:02] LABS: ALB/GLOB RATIO 0.9 (1.0-2.1); ALBUMIN 2.6 g/dL (3.5-5.0); CALCIUM 7.5 mg/dL (8.4-10.2)
[2018-09-06] MEDS: Potassium Chloride 20 mEq ER Tab PO SCH (08:26)
--- NOTE | 2018-09-06 10:59 | CP.CCUPN ---
<Josefa Stephens - Last Filed: 09/06/18 15:42> CCU Subjective - Physician Review Subjective (Free Text): Pt is a 32 y/o male with pmhx significant for HTN (non compliant with medication) who presented to ED with complaints of generalized weakness, dyspnea, and that his "blood pressure was high." He states that he was recently diagnosed with Hypertension in April of this year but failed to comply with medical management or follow up. On presentation to the ED, his BP was noted to be 200's systolic, labs significant for elevated BUN/Crea (74/9.2), Hypokalemia (3.4) elevated troponins and EKG significant for LVH with J point elevations. Nephrology and Cardiology was consulted. Pt was admitted to ICU for Hypertensive Emergency and Acute Renal Failure. Received Hydralazine and Clonidine and emergent Hemodialysis with gradual improvement of kidney function. PMHX: Hypertension (newly diagnosed in April of 2018) PSurgHx: Brain/Scalp Surgery after unknown traumatic brain injury (in February 2018) at [facility] FMHx: Mother- HTN, Denies fm hx of Kidney disease Social: Smokes 2-3 cigarettes weekly, used to drink alcohol heavily until 1 year ago when he quit. Denies illicit drug use. Lives in [facility] Impression: #Acute Renal Failure #Hypertensive Emergency #Tropinemia #Hypokalemia #Anemia Assessment and Plan #Acute Renal Failure -Likely a manifestation of Malignant Nephrosclerosis 2/2 to uncontrolled BP; workup for alternative etiology in progress -Receiving HD via PICC as per Neprhology -GFR showing gradual improvement #Hypertensive Emergency -Treat with antihypertensives as ordered -Will need workup for secondary causes once Kidney Function is stabilized. Will consider Primary Hyperaldostronism given low potassium -Renal US negative for Renal Artery Stenosis; will consider working up for secondary causes -Echo report: moderate LVH, EF 50-55%, Mild to mod pericardial effusion (no signs of tamponade) #Tropinema -Cellar Worker consulted, Dr. Camejo, unlikely ischemic heart disease -Low on differential is uremic Pericarditis given EKG changes in setting of elevatee uremia -Will trend troponins and EKG -C/w ASA, Statin #Hypokalemia -Replete as needed #Diet, Renal #DVT ppx, Heparin 5000 SC q12 Stable Full Code CCU Objective - Vital Signs / Intake & Output Vital Signs (Last 4 hours): Vital Signs Temp Pulse Resp BP Pulse Ox 09/06/18 08:27 88 159/86 H 09/06/18 08:26 84 159/86 H 09/06/18 08:00 98.1 F 93 H 21 159/86 H 95 Intake and Output (Last 8hrs): Intake & Output 09/05/18 09/06/18 09/06/18 22:59 06:59 14:59 Intake Total 840 600 Output Total 600 Balance 240 600 Intake: IV 600 600 Oral 240 Output: Urine 600 Urine, Voided 600 - Physical Exam Head: Negative for: Atraumatic (Left parietal lobe surgical scar and grossly visible deformity) Pupils: Positive for: PERRL Extroacular Muscles: Positive for: EOMI Mouth: Positive for: Moist Mucous Membranes Respiratory/Chest: Positive for: Clear to Auscultation. Negative for: Wheezes, Rales Cardiovascular: Positive for: Normal S1, S2. Negative for: Murmurs Abdomen: Positive for: Normal Bowel Sounds. Negative for: Tenderness, Distention Upper Extremity: Positive for: Normal Inspection, Capillary Refill < 2s. Negative for: Edema Lower Extremity: Positive for: Normal Inspection, Capillary Refill < 2 s. Negative for: Edema Neurological: Positive for: GCS=15, Speech Normal, Other (No tremors) Skin: Positive for: Normal Color Psychiatric: Positive for: Alert, Oriented x 3. Negative for: Anxious, Agitated - Medications Active Medications: Active Medications Generic Name Dose Route Start Last Admin Trade Name Freq PRN Reason Stop Dose Admin Amlodipine Besylate 10 mg 09/05/18 09:00 09/06/18 08:26 Norvasc PO 10 mg DAILY JM Administration Carvedilol 6.25 mg 09/05/18 10:30 09/06/18 08:27 Coreg PO 6.25 mg Q12 JM Administration Hydralazine HCl 10 mg 09/05/18 06:11 Apresoline PO TID PRN Systolic Blood Pressure Potassium Chloride 20 meq 09/06/18 09:00 09/06/18 08:26 K-Dur 20 Meq Er Tab PO 20 meq DAILY JM Administration - Patient Studies Lab Studies: Lab Studies 09/06/18 09/06/18 09/06/18 Range/Units 09:27 04:40 04:40 WBC 4.6 L (4.8-10.8) K/uL RBC 3.43 L (4.40-5.90) Mil/uL Hgb 10.5 L (12.0-18.0) g/dL Hct 30.2 L (35.0-51.0) % MCV 88.0 (80.0-94.0) fl MCH 30.7 (27.0-31.0) pg MCHC 34.9 (33.0-37.0) g/dL RDW 12.8 (11.5-14.5) % Plt Count 153 (130-400) K/uL MPV 8.3 (7.2-11.7) fl Neut % (Auto) 61.9 (50.0-75.0) % Lymph % (Auto) 22.0 (20.0-40.0) % [place] % (Auto) 10.5 H (0.0-10.0) % Eos % (Auto) 4.6 H (0.0-4.0) % Baso % (Auto) 1.0 (0.0-2.0) % Neut # (Auto) 2.9 (1.8-7.0) K/uL Lymph # (Auto) 1.0 (1.0-4.3) K/uL [place] # (Auto) 0.5 (0.0-0.8) K/uL Eos # (Auto) 0.2 (0.0-0.7) K/uL Baso # (Auto) 0.0 (0.0-0.2) K/uL ESR 63 H (0-15) mm/hr PT (9.8-13.1) Seconds INR APTT (25.6-37.1) Seconds Sodium 137 (132-148) mmol/l Potassium 3.5 L (3.6-5.0) MMOL/L Chloride 108 H (98-107) mmol/L Carbon Dioxide 23 (22-30) mmol/L Anion Gap 10 (10-20) BUN 42 H (9-20) mg/dl Creatinine 7.2 H (0.8-1.5) mg/dl Est GFR ( Amer) 11 Est GFR (Non-Af Amer) 9 Random Glucose 80 (75-110) mg/dL Calcium 7.5 L (8.4-10.2) mg/dL Phosphorus 4.9 H (2.5-4.5) mg/dl Magnesium 2.3 (1.6-2.3) MG/DL Total Bilirubin 0.2 (0.2-1.3) mg/dl AST 33 (17-59) U/L ALT 42 (21-72) U/L Alkaline Phosphatase 82 (38-126) U/L Troponin I (0.00-0.120) ng/mL Total Protein 5.3 L (6.3-8.2) G/DL Albumin 2.6 L D (3.5-5.0) g/dL Globulin 2.7 (2.2-3.9) gm/dL Albumin/Globulin Ratio 0.9 L (1.0-2.1) Complement C3 (88.0-165.0) mg/dL Complement C4 (14.0-44.0) mg/dL Hep Bs Antigen (NEGATIVE) Hep Bs Antibody (NEGATIVE) Hep B Core IgM Ab (NEGATIVE) Hepatitis C Antibody (NEGATIVE) 09/05/18 09/05/18 09/05/18 Range/Units 21:05 16:27 16:27 WBC (4.8-10.8) K/uL RBC (4.40-5.90) Mil/uL Hgb (12.0-18.0) g/dL Hct (35.0-51.0) % MCV (80.0-94.0) fl MCH (27.0-31.0) pg MCHC (33.0-37.0) g/dL RDW (11.5-14.5) % Plt Count (130-400) K/uL MPV (7.2-11.7) fl Neut % (Auto) (50.0-75.0) % Lymph % (Auto) (20.0-40.0) % [place] % (Auto) (0.0-10.0) % Eos % (Auto) (0.0-4.0) % Baso % (Auto) (0.0-2.0) % Neut # (Auto) (1.8-7.0) K/uL Lymph # (Auto) (1.0-4.3) K/uL [place] # (Auto) (0.0-0.8) K/uL Eos # (Auto) (0.0-0.7) K/uL Baso # (Auto) (0.0-0.2) K/uL ESR (0-15) mm/hr PT (9.8-13.1) Seconds INR APTT (25.6-37.1) Seconds Sodium 132 (132-148) mmol/l Potassium 3.3 L (3.6-5.0) MMOL/L Chloride 102 (98-107) mmol/L Carbon Dioxide 26 (22-30) mmol/L Anion Gap 7 L (10-20) BUN 42 H (9-20) mg/dl Creatinine 6.4 H (0.8-1.5) mg/dl Est GFR ( Amer) 12 Est GFR (Non-Af Amer) 10 Random Glucose 209 H (75-110) mg/dL Calcium 7.6 L (8.4-10.2) mg/dL Phosphorus (2.5-4.5) mg/dl Magnesium (1.6-2.3) MG/DL Total Bilirubin (0.2-1.3) mg/dl AST (17-59) U/L ALT (21-72) U/L Alkaline Phosphatase (38-126) U/L Troponin I (0.00-0.120) ng/mL Total Protein (6.3-8.2) G/DL Albumin (3.5-5.0) g/dL Globulin (2.2-3.9) gm/dL Albumin/Globulin Ratio (1.0-2.1) Complement C3 (88.0-165.0) mg/dL Complement C4 (14.0-44.0) mg/dL Hep Bs Antigen Negative (NEGATIVE) Hep Bs Antibody Negative (NEGATIVE) Hep B Core IgM Ab Negative (NEGATIVE) Hepatitis C Antibody Negative (NEGATIVE) 09/05/18 09/05/18 09/05/18 Range/Units 14:00 13:56 11:03 WBC (4.8-10.8) K/uL RBC (4.40-5.90) Mil/uL Hgb (12.0-18.0) g/dL Hct (35.0-51.0) % MCV (80.0-94.0) fl MCH (27.0-31.0) pg MCHC (33.0-37.0) g/dL RDW (11.5-14.5) % Plt Count (130-400) K/uL MPV (7.2-11.7) fl Neut % (Auto) (50.0-75.0) % Lymph % (Auto) (20.0-40.0) % [place] % (Auto) (0.0-10.0) % Eos % (Auto) (0.0-4.0) % Baso % (Auto) (0.0-2.0) % Neut # (Auto) (1.8-7.0) K/uL Lymph # (Auto) (1.0-4.3) K/uL [place] # (Auto) (0.0-0.8) K/uL Eos # (Auto) (0.0-0.7) K/uL Baso # (Auto) (0.0-0.2) K/uL ESR (0-15) mm/hr PT 9.9 (9.8-13.1) Seconds INR 0.9 APTT 50.1 H (25.6-37.1) Seconds Sodium (132-148) mmol/l Potassium (3.6-5.0) MMOL/L Chloride (98-107) mmol/L Carbon Dioxide (22-30) mmol/L Anion Gap (10-20) BUN (9-20) mg/dl Creatinine (0.8-1.5) mg/dl Est GFR ( Amer) Est GFR (Non-Af Amer) Random Glucose (75-110) mg/dL Calcium (8.4-10.2) mg/dL Phosphorus (2.5-4.5) mg/dl Magnesium (1.6-2.3) MG/DL Total Bilirubin (0.2-1.3) mg/dl AST (17-59) U/L ALT (21-72) U/L Alkaline Phosphatase (38-126) U/L Troponin I 0.1980 H* (0.00-0.120) ng/mL Total Protein (6.3-8.2) G/DL Albumin (3.5-5.0) g/dL Globulin (2.2-3.9) gm/dL Albumin/Globulin Ratio (1.0-2.1) Complement C3 77.0 L (88.0-165.0) mg/dL Complement C4 34.2 (14.0-44.0) mg/dL Hep Bs Antigen (NEGATIVE) Hep Bs Antibody (NEGATIVE) Hep B Core IgM Ab (NEGATIVE) Hepatitis C Antibody (NEGATIVE) Laboratory Results - last 24 hr 09/05/18 09/05/18 09/05/18 11:03 13:56 14:00 WBC RBC Hgb Hct MCV MCH MCHC RDW Plt Count MPV Neut % (Auto) Lymph % (Auto) [place] % (Auto) Eos % (Auto) Baso % (Auto) Neut # (Auto) Lymph # (Auto) [place] # (Auto) Eos # (Auto) Baso # (Auto) ESR PT 9.9 INR 0.9 APTT 50.1 H Sodium Potassium Chloride Carbon Dioxide Anion Gap BUN Creatinine Est GFR ( Amer) Est GFR (Non-Af Amer) Random Glucose Calcium Phosphorus Magnesium Total Bilirubin AST ALT Alkaline Phosphatase Troponin I 0.1980 H* Total Protein Albumin Globulin Albumin/Globulin Ratio Complement C3 77.0 L Complement C4 34.2 Hep Bs Antigen Hep Bs Antibody Hep B Core IgM Ab Hepatitis C Antibody 09/05/18 09/05/18 09/05/18 16:27 16:27 21:05 WBC RBC Hgb Hct MCV MCH MCHC RDW Plt Count MPV Neut % (Auto) Lymph % (Auto) [place] % (Auto) Eos % (Auto) Baso % (Auto) Neut # (Auto) Lymph # (Auto) [place] # (Auto) Eos # (Auto) Baso # (Auto) ESR PT INR APTT Sodium 132 Potassium 3.3 L Chloride 102 Carbon Dioxide 26 Anion Gap 7 L BUN 42 H Creatinine 6.4 H Est GFR ( Amer) 12 Est GFR (Non-Af Amer) 10 Random Glucose 209 H Calcium 7.6 L Phosphorus Magnesium Total Bilirubin AST ALT Alkaline Phosphatase Troponin I Total Protein Albumin Globulin Albumin/Globulin Ratio Complement C3 Complement C4 Hep Bs Antigen Negative Hep Bs Antibody Negative Hep B Core IgM Ab Negative Hepatitis C Antibody Negative 09/06/18 09/06/18 09/06/18 04:40 04:40 09:27 WBC 4.6 L RBC 3.43 L Hgb 10.5 L Hct 30.2 L MCV 88.0 MCH 30.7 MCHC 34.9 RDW 12.8 Plt Count 153 MPV 8.3 Neut % (Auto) 61.9 Lymph % (Auto) 22.0 [place] % (Auto) 10.5 H Eos % (Auto) 4.6 H Baso % (Auto) 1.0 Neut # (Auto) 2.9 Lymph # (Auto) 1.0 [place] # (Auto) 0.5 Eos # (Auto) 0.2 Baso # (Auto) 0.0 ESR 63 H PT INR APTT Sodium 137 Potassium 3.5 L Chloride 108 H Carbon Dioxide 23 Anion Gap 10 BUN 42 H Creatinine 7.2 H Est GFR ( Amer) 11 Est GFR (Non-Af Amer) 9 Random Glucose 80 Calcium 7.5 L Phosphorus 4.9 H Magnesium 2.3 Total Bilirubin 0.2 AST 33 ALT 42 Alkaline Phosphatase 82 Troponin I Total Protein 5.3 L Albumin 2.6 L D Globulin 2.7 Albumin/Globulin Ratio 0.9 L Complement C3 Complement C4 Hep Bs Antigen Hep Bs Antibody Hep B Core IgM Ab Hepatitis C Antibody Critical Care Progress Note - Nutrition Nutrition: Nutrition Category Date Time Status Renal Diet [DIET] Diets 09/06/18 Breakfast Active <Ankush Jacob - Last Filed: 09/07/18 07:02> CCU Subjective - Physician Review Subjective (Free Text): Attestation: Patient seen and examined at the bedside with Resident Dr. Carlie Stephens; and I agree with her outline of plans and management documented above and below, reflecting my review of all applicable clinical data, and participation in the care of the patient throughout the day in ICU; today, September 06, 2018.
--- NOTE | 2018-09-06 12:48 | CP.PCM.PN ---
<Mya Hunt - Last Filed: 09/06/18 15:43> Subjective - Date & Time of Evaluation Date of Evaluation: 09/06/18 Time of Evaluation: 09:45 - Subjective Subjective: S/p tunnel cath for HD by IR. Hemodialysis yesterday. No acute overnight events. Pt states that he is feeling well this AM. Further history obtained from patient. No hx of renal disease, 1x hospital admission in [place] for head trauma after ETOH intoxication (will get medical records), hx of significant ETOH use in the past, currently cutting down to a few drinks in the weekend. Occasionally smokes, no illicit drug use. No family hx of renal disease, patient has been healthy otherwise. Objective - Vital Signs/Intake and Output Vital Signs (last 24 hours): Temp Pulse Resp BP Pulse Ox 98.2 F 62 17 125/73 97 09/06/18 12:00 09/06/18 12:00 09/06/18 12:00 09/06/18 12:00 09/06/18 12:00 Intake and Output: 09/06/18 09/06/18 06:59 18:59 Intake Total 1140 Balance 1140 - Medications Medications: Current Medications Amlodipine Besylate (Norvasc) 10 mg PO DAILY [facility] Last Admin: 09/06/18 08:26 Dose: 10 mg Carvedilol (Coreg) 6.25 mg PO Q12 [facility] Last Admin: 09/06/18 08:27 Dose: 6.25 mg Hydralazine HCl (Apresoline) 10 mg PO TID PRN PRN Reason: Systolic Blood Pressure Potassium Chloride (K-Dur 20 Meq Er Tab) 20 meq PO DAILY [facility] Last Admin: 09/06/18 08:26 Dose: 20 meq - Labs Labs: 09/06/18 04:40 09/06/18 04:40 PT 9.9 Seconds (9.8-13.1) 09/05/18 11:03 INR 0.9 09/05/18 11:03 APTT 50.1 Seconds (25.6-37.1) H 09/05/18 11:03 - Constitutional Appears: No Acute Distress - Eye Exam Eye Exam: EOMI, Normal appearance. absent: Scleral icterus - ENT Exam ENT Exam: Mucous Membranes Moist - Respiratory Exam Respiratory Exam: Clear to Ausculation Bilateral, NORMAL BREATHING PATTERN. absent: Wheezes - Cardiovascular Exam Cardiovascular Exam: REGULAR RHYTHM, +S1, +S2. absent: Clicks, Rubs, Murmur Additional comments: Right SVC non-tunneled dialysis cather dressing intact with biopatch - GI/Abdominal Exam GI & Abdominal Exam: Soft, Normal Bowel Sounds. absent: Tenderness - Extremities Exam Extremities Exam: Normal Inspection. absent: Pedal Edema - Neurological Exam Neurological Exam: Alert, Awake, Oriented x3 - Psychiatric Exam Psychiatric exam: Normal Mood Assessment and Plan - Assessment and Plan (Free Text) Assessment: Assessment/Plan: 32 YO male admitted for acute renal failure. New findings sig for persistent elevated creatinine despite hydration. Additionally, there was ST wave changes in the with ST segment elevation, with pos trop. Cardiology was consulted, EKG this AM along with elevated trop x 1, asymptomatic. Cardiology was consulted, e levated trop and EKG changes without any chest pain unlikely to be cardiac in origin, likely 2/2 to renal failure. Nephrology was consulted. Tunnel cath was obtained via IR and pt underwent hemodialysis. Renal functions improved post dialysis, but still significantly elevated this AM. Echo sig for EF 50-55% with global LV strain and LVH. Renal u/s sig for cortical changes, renal disease, renal arteries patent. Patient to undergo dialysis today. Acute renal failure, uremia, aoztemia -etiology unknown, likely 2/2 underlying renal disease -Nephrology consulted; urgent HD -IR consulted for cath for HD -Renal u/s sig for cortical changes, renal disease, renal arteries patent. -on HD, started 09/05 -pending renal workup, urine protein, HARRY, ANCA, compliment, dsDNA, MPO, metanephrines, VMA pending. HIV and RPR pending Global ST changes, elevated trops -likely 2/2 to ARF-toxins, vs ischemia vs pericarditis (likely uremic pericarditis up to up to 74) -pt currently asymptomatic -trops downtrending, will repeat one today -Echo sig for EF 50-55% with global LV strain and LVH. Mild to moderate pericardial effusion -Cardiology on board; unlikely ACS, urgent hemodialysis -c/w Beta rebecca as per cardiology, s/w statin and asa -labs CRP and ESR pending Hypertensive Urgency -likely 2/2 to acute renal failure -improved after HD -c/w meds as needed, Hydralazine, Amlodapine Anemia, normocytic -likely acute on chronic 2/2 to AFR -h/h stable Hypokalemia, hypocalcemia -corrected Ca is 8.2 -replace prn -labs in AM Dvt Proplx -Heparin SC BID <Barby Hernández - Last Filed: 09/06/18 17:32> Objective - Vital Signs/Intake and Output Vital Signs (last 24 hours): Temp Pulse Resp BP Pulse Ox 97.9 F 76 19 141/80 99 09/06/18 16:00 09/06/18 16:00 09/06/18 16:00 09/06/18 16:00 09/06/18 16:00 Intake and Output: 09/06/18 09/06/18 06:59 18:59 Intake Total 1140 Balance 1140 - Medications Medications: Current Medications Amlodipine Besylate (Norvasc) 10 mg PO DAILY [facility] Last Admin: 09/06/18 08:26 Dose: 10 mg Aspirin (Aspirin Chewable) 81 mg PO DAILY [facility] Atorvastatin Calcium (Lipitor) 20 mg PO DAILY [facility] Carvedilol (Coreg) 6.25 mg PO Q12 [facility] Last Admin: 09/06/18 08:27 Dose: 6.25 mg Heparin Sodium (Porcine) (Heparin) 5,000 units SC Q12 [facility]; Protocol Hydralazine HCl (Apresoline) 10 mg PO TID PRN PRN Reason: Systolic Blood Pressure Potassium Chloride (K-Dur 20 Meq Er Tab) 20 meq PO DAILY [facility] Last Admin: 09/06/18 08:26 Dose: 20 meq - Labs Labs: 09/06/18 04:40 09/06/18 04:40 PT 9.9 Seconds (9.8-13.1) 09/05/18 11:03 INR 0.9 09/05/18 11:03 APTT 50.1 Seconds (25.6-37.1) H 09/05/18 11:03 Attending/Attestation - Attestation I have personally seen and examined this patient.: Yes I have fully participated in the care of the patient.: Yes I have reviewed all pertinent clinical information, including history, physical exam and plan: Yes Notes (Text): 09/06/18 17:31 Seen examined and discussed with resident. Agree with findings and plan as above. Pt HD stable, alert, oriented appropriately. EKG changes and trop likely secondary to pericarditis, renal failure/MADAI. Renal US + renal disease. Appreciate cardiology and nephrology consults for HD today, second session.
--- NOTE | 2018-09-06 16:04 | CP.PCM.PN ---
Subjective - Date & Time of Evaluation Date of Evaluation: 09/06/18 Time of Evaluation: 16:02 - Subjective Subjective: renal follow up note, Covering for Dr Perdomo no events overnight, first hd session done yesterday vitals reviewed heent normal op moist no jvd s1s2 present no resp distress abd sfot skin normal ao times 3 normal affect plan MADAI/proteinuria/htn/anemia/hyperphosphatemia hd second session today monitor I&Os lytes reviewed UA postive for protein, GN work up sent bp continue current meds anemia stable monitor for now can check iron panel Objective - Vital Signs/Intake and Output Vital Signs (last 24 hours): Temp Pulse Resp BP Pulse Ox 98.2 F 62 17 125/73 97 09/06/18 12:00 09/06/18 12:00 09/06/18 12:00 09/06/18 12:00 09/06/18 12:00 Intake and Output: 09/06/18 09/06/18 06:59 18:59 Intake Total 1140 Balance 1140 - Medications Medications: Current Medications Amlodipine Besylate (Norvasc) 10 mg PO DAILY [facility] Last Admin: 09/06/18 08:26 Dose: 10 mg Aspirin (Aspirin Chewable) 81 mg PO DAILY [facility] Atorvastatin Calcium (Lipitor) 20 mg PO DAILY [facility] Carvedilol (Coreg) 6.25 mg PO Q12 [facility] Last Admin: 09/06/18 08:27 Dose: 6.25 mg Heparin Sodium (Porcine) (Heparin) 5,000 units SC Q12 [facility]; Protocol Hydralazine HCl (Apresoline) 10 mg PO TID PRN PRN Reason: Systolic Blood Pressure Potassium Chloride (K-Dur 20 Meq Er Tab) 20 meq PO DAILY [facility] Last Admin: 09/06/18 08:26 Dose: 20 meq - Labs Labs: 09/06/18 04:40 09/06/18 04:40 PT 9.9 Seconds (9.8-13.1) 09/05/18 11:03 INR 0.9 09/05/18 11:03 APTT 50.1 Seconds (25.6-37.1) H 09/05/18 11:03
[2018-09-07 06:30] LABS: BASO # 0.1 K/uL (0.0-0.2); BASO % 1.2 % (0.0-2.0); EOS # 0.2 K/uL (0.0-0.7); EOS % 4.8 % (0.0-4.0); HEMOGLOBIN 10.1 g/dL (12.0-18.0); LYMPH % 20.9 % (20.0-40.0); MEAN CORPUSCULAR HEMOGLOBIN 30.8 pg (27.0-31.0); MEAN CORPUSCULAR HGB CONC 34.6 g/dL (33.0-37.0); MEAN PLATELET VOLUME 8.4 fl (7.2-11.7); MONO # 0.7 K/uL (0.0-0.8); MONO % 13.4 % (0.0-10.0); NEUT % 59.7 % (50.0-75.0); RBC 3.27 Mil/uL (4.40-5.90); RED CELL DISTRIBUTION WIDTH 13.3 % (11.5-14.5)
[2018-09-07 06:47] LABS: ALBUMIN 2.6 g/dL (3.5-5.0)
[2018-09-07 07:08] LABS: FERRITIN 49.4 ng/Ml (17.9-464)
[2018-09-07 07:10] LABS: IRON 35 ug/dL (49-181)
[2018-09-07 07:19] LABS: % IRON SATURATION 15 % (20-55); TOTAL IRON BINDING CAPACITY 229 ug/dL (250-450)
[2018-09-07] MEDS: Potassium Chloride 20 mEq ER Tab PO SCH (08:54)
--- NOTE | 2018-09-07 12:02 | CP.PCM.PN ---
Addendum entered and electronically signed by Tom Rodriguez MD 09/07/18 19:30: Patient was seen and examined bedside . All chart and clinical data reviewed . Case discussed with resident . Agree with assessment and plan. 32 y/o male with PMH HTN , ETOH abuse , not taking any meds for hypertension presented with chest discomfort . He was found to be in renal failure with BUN / Cr 42/6.4 , had hypertensive urgency with BP 230/152. He was found to have elevated troponin 0.4--0.19 and EKG changes nephro and cardiology were consulted Rebnal US showed medical renal disease echo showed EF 50-55% and LVH He underwent emergent HD and strated on BP meds . BP at present is controlled With minimal bleeding around HD catheter last night. BUN. Cr 28/5.4 , able to void . 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 Received HD yesterday and the day before. Does not have pain; has concern for some dried blood at HD site. Objective - Vital Signs/Intake and Output Vital Signs (last 24 hours): Temp Pulse Resp BP Pulse Ox 98.5 F 79 19 135/80 96 09/07/18 08:05 09/07/18 08:05 09/07/18 08:05 09/07/18 08:05 09/07/18 08:05 - Medications Medications: Current Medications Amlodipine Besylate (Norvasc) 10 mg PO DAILY [facility] Last Admin: 09/07/18 08:54 Dose: 10 mg Aspirin (Aspirin Chewable) 81 mg PO DAILY [facility] Last Admin: 09/07/18 08:54 Dose: 81 mg Atorvastatin Calcium (Lipitor) 20 mg PO DAILY [facility] Last Admin: 09/07/18 08:54 Dose: 20 mg Carvedilol (Coreg) 6.25 mg PO Q12 [facility] Last Admin: 09/07/18 08:54 Dose: 6.25 mg Heparin Sodium (Porcine) (Heparin) 5,000 units SC Q12 [facility]; Protocol Last Admin: 09/07/18 08:54 Dose: 5,000 units Hydralazine HCl (Apresoline) 10 mg PO TID PRN PRN Reason: Systolic Blood Pressure Potassium Chloride (K-Dur 20 Meq Er Tab) 20 meq PO DAILY [facility] Last Admin: 09/07/18 08:54 Dose: 20 meq - Labs Labs: 09/07/18 05:45 09/07/18 05:45 PT 9.9 Seconds (9.8-13.1) 09/05/18 11:03 INR 0.9 09/05/18 11:03 APTT 50.1 Seconds (25.6-37.1) H 09/05/18 11:03 - Constitutional Appears: Non-toxic, No Acute Distress - Head Exam Head Exam: NORMAL INSPECTION, NORMOCEPHALIC - Eye Exam Eye Exam: Normal appearance - Respiratory Exam Respiratory Exam: Clear to Ausculation Bilateral, NORMAL BREATHING PATTERN - Cardiovascular Exam Cardiovascular Exam: REGULAR RHYTHM, +S1, +S2 Additional comments: Right SVC non-tunneled dialysis cather dressing intact with biopatch; some dried blood visible but no active bleeding - GI/Abdominal Exam GI & Abdominal Exam: Soft. absent: Tenderness - Extremities Exam Extremities Exam: Normal Inspection. absent: Pedal Edema - Neurological Exam Neurological Exam: Alert, Awake, Oriented x3 - Psychiatric Exam Psychiatric exam: Normal Mood - Skin Skin Exam: Normal Color, Warm Assessment and Plan - Assessment and Plan (Free Text) Assessment: 32 yo M with hx of recently diagnosed (April 2018) hypertension, admitted for acute renal failure. Pt underwent dialysis yesterday and the day before, with improvement in renal function, however BUN/Cr remain elevated. Plan: 1. Acute renal failure, uremia, aoztemia -etiology unknown, likely secondary to underlying renal disease -Nephrology consulted; received HD on 09/05 and 09/06. -s/p HD cath placement by IR -Renal u/s sig for cortical changes, renal disease, renal arteries patent. - Continued renal workup pending as per nephrology 2. Global ST changes with elevated troponin - Resolved, last trop neg from 09/06 - Cardio consulted; likely secondary to renal impairment rather than cardiac origin - Pt continues to be asymptomatic - Echo: EF 50-55% with global LV strain and LVH; mild to moderate pericardial effusion - Continue with B-rebecca (coreg) 3. Hypertensive Urgency -Likely secondary to acute renal failure -Improved after HD, currently stable -Continue with scheduled amlodipine and hydralazine as needed 4. Dyslipidemia - Taking statin 5. Anemia, normocytic - Likely acute on chronic due to acute renal failure - Stable 6. Hypokalemia - Resolved 7. Hypocalcemia - Corrected is 9.1 - Replace as needed - monitor on CMP 8. DVT prophylaxis - Heparin SC BID
--- NOTE | 2018-09-07 14:40 | CP.PCM.PN ---
Subjective - Date & Time of Evaluation Date of Evaluation: 09/07/18 Time of Evaluation: 14:37 - Subjective Subjective: renal follow up note, Covering for Dr Perdomo no events overnight, feels better. denies CP/SOB vitals reviewed heent normal op moist no jvd s1s2 present no resp distress abd sfot skin normal ao times 3 normal affect access: shiley plan MADAI/proteinuria/htn/anemia/hyperphosphatemia/pericardial effusion echogenic kidneys on sono, probably has advanced CKD hd 3rd treatment tomorrow monitor I&Os lytes reviewed UA postive for protein, GN work up sent bp continue current meds anemia started iron MVI and low dose epogen check renin/shila, metanephrine and renal artery doppler check Vit D and PTH Objective - Vital Signs/Intake and Output Vital Signs (last 24 hours): Temp Pulse Resp BP Pulse Ox 98.5 F 79 19 135/80 96 09/07/18 08:05 09/07/18 08:05 09/07/18 08:05 09/07/18 08:05 09/07/18 08:05 - Medications Medications: Current Medications Amlodipine Besylate (Norvasc) 10 mg PO DAILY [facility] Last Admin: 09/07/18 08:54 Dose: 10 mg Aspirin (Aspirin Chewable) 81 mg PO DAILY [facility] Last Admin: 09/07/18 08:54 Dose: 81 mg Atorvastatin Calcium (Lipitor) 20 mg PO DAILY [facility] Last Admin: 09/07/18 08:54 Dose: 20 mg Carvedilol (Coreg) 6.25 mg PO Q12 [facility] Last Admin: 09/07/18 08:54 Dose: 6.25 mg Epoetin Destin (Procrit) 4,000 unit IV MWF [facility] Heparin Sodium (Porcine) (Heparin) 5,000 units SC Q12 [facility]; Protocol Last Admin: 09/07/18 08:54 Dose: 5,000 units Hydralazine HCl (Apresoline) 10 mg PO TID PRN PRN Reason: Systolic Blood Pressure Iron Sucrose 100 mg/ Sodium (Chloride) 105 mls @ 105 mls/hr IVPB DAILY [facility] Stop: 09/17/18 12:46 Vitamin B Complex/Vit C/Folic Acid (Nephro-Yuridia) 1 tab PO DAILY [facility] - Labs Labs: 09/07/18 05:45 11/01/18 05:45 PT 9.9 Seconds (9.8-13.1) 09/05/18 11:03 INR 0.9 09/05/18 11:03 APTT 50.1 Seconds (25.6-37.1) H 09/05/18 11:03
[2018-09-07] MEDS ORDERED: Epoetin Alfa 4000 UNIT/ML Inj IV ONE (15:00)
--- NOTE | 2018-09-07 18:07 | US ---
Date of service: 09/07/2018 PROCEDURE: Ultrasonography renal arterial evaluation HISTORY: severe HTN r/o AIMEE COMPARISON: Renal artery duplex ultrasound dated 09/05/2018. TECHNIQUE: Real-time ultrasonography evaluation of the renal arteries were performed. Comparison is made to the aorta. FINDINGS: Incidental note is made of bilateral pleural effusions and small pericardial effusion. No aortic atherosclerotic calcification or mural plaque present. AORTA: Patent. Peak systolic velocity 93.4 centimeters/second RIGHT RENAL ARTERY: Renal artery to aorta ratio: 0.6 * Proximal segment: Not visualized * Mid segment: Patent. Peak systolic velocity 52.8 centimeters/second * Distal segment: Patent. Peak systolic velocity 54.8 centimeters/second Other findings: Right Kidney measures approximately 8.6 x 3.5 x 3.2 centimeters. Normal in size and contour. Increased cortical echogenicity. LEFT RENAL ARTERY: Renal artery to aorta ratio: 0.7 * Proximal segment: Not visualized * Mid segment: Patent. Peak systolic velocity 64.1 centimeters/second * Distal segment: Patent. Peak systolic velocity 6.8 centimeters/second Other findings: Left Kidney measures approximately 7.8 x 4.1 x 4.7 centimeters. Upper pole cyst measuring 2.2 x 1.7 x 1.8 cm. Normal in size and contour. Increased cortical echogenicity IMPRESSION: Limited examination. No evidence of renal artery stenosis. Increased cortical echogenicity involving both kidneys compatible with medical renal disease Incidental note is made of bilateral pleural effusions and small pericardial effusion.
--- NOTE | 2018-09-07 19:12 | CARD ---
APPROVED REPORT Date of service: 09/07/2018 EKG Measurement Heart [id number] <Conclusion> Normal sinus rhythm ST & T wave abnormality, consider anterolateral ischemia Abnormal ECG
[2018-09-08 06:28] LABS: BASO % 0.9 % (0.0-2.0); EOS # 0.2 K/uL (0.0-0.7); EOS % 4.8 % (0.0-4.0); HEMOGLOBIN 10.1 g/dL (12.0-18.0); LYMPH % 24.2 % (20.0-40.0); MEAN CELL VOLUME 89.4 fl (80.0-94.0); MEAN CORPUSCULAR HGB CONC 33.5 g/dL (33.0-37.0); MEAN PLATELET VOLUME 8.7 fl (7.2-11.7); MONO # 0.5 K/uL (0.0-0.8); MONO % 12.6 % (0.0-10.0); NEUT # 2.5 K/uL (1.8-7.0); NEUT % 57.5 % (50.0-75.0); RBC 3.37 Mil/uL (4.40-5.90); RED CELL DISTRIBUTION WIDTH 13.3 % (11.5-14.5); WHITE BLOOD COUNT 4.3 K/uL (4.8-10.8)
[2018-09-08 06:41] LABS: ALBUMIN 2.7 g/dL (3.5-5.0)
[2018-09-08] MEDS: Multivitamin Vitamin B Complex (Nephro-Vite) Tab PO SCH ×2 (08:49→12:51)
[2018-09-08] MEDS ORDERED: Epoetin Alfa 4000 UNIT/ML Inj IV SCH (09:00)
--- NOTE | 2018-09-08 10:16 | CP.PCM.PN ---
Addendum entered and electronically signed by Tom Rodriguez MD 09/08/18 16:12: Patient seen and examined bedside . Receiving HD . Feeling well. No acute issues overnight .Hemodynamically stable. Agree with resident assessment and plan . 32 y/o male with PMH HTN , ETOH abuse , not taking any meds for hypertension presented with chest discomfort . He was found to be in renal failure with BUN / Cr 42/6.4 , had hypertensive urgency with BP 230/152. He was found to have elevated troponin 0.4--0.19 and EKG changes nephro and cardiology were consulted Renal US showed medical renal disease echo showed EF 50-55% and LVH He underwent emergent HD and stared on BP meds . BP at present is controlled and now receiving 3rd HD .As per cardiology troponin elevation and EKG changes most likely related to uremia and not really ischemic event Continue current management As per nephro will continue with HD 3 times / week. Will consult SW to make arrangements for HD in the communitY discussed with nephrology . Patient has nephrotic range proteinuria and will need kidney biopsy to rule out any treatable condition .Will place order for IR . Also will need permanent HD catheter placement Dx Nephrotic range proteinuria Acute on chronic kidney failure ( Renal US showed medical renal disease) Hypertensive urgency Uremia Elevated Troponin and ST changes -- most likely uremic pericarditis Mild to moderate pericardial effusion ( no tamponade ) Normocytic anemia History ETOH abuse and head trauma Original Note: Subjective - Date & Time of Evaluation Date of Evaluation: 09/08/18 Time of Evaluation: 09:35 - Subjective Subjective: Pt seen and evaluated at bedside this am; no acute events overnight. Was undergoing dialysis, tolerating it well without any discomfort. Overall reports feeling better. Objective - Vital Signs/Intake and Output Vital Signs (last 24 hours): Temp Pulse Resp BP Pulse Ox 98.2 F 68 20 137/85 99 09/08/18 08:46 09/08/18 08:46 09/08/18 08:46 09/08/18 08:46 09/08/18 08:46 - Medications Medications: Current Medications Amlodipine Besylate (Norvasc) 10 mg PO DAILY [facility] Last Admin: 09/08/18 08:49 Dose: Not Given Aspirin (Aspirin Chewable) 81 mg PO DAILY [facility] Last Admin: 09/08/18 08:48 Dose: Not Given Atorvastatin Calcium (Lipitor) 20 mg PO DAILY [facility] Last Admin: 09/08/18 08:49 Dose: Not Given Carvedilol (Coreg) 6.25 mg PO Q12 [facility] Last Admin: 09/08/18 08:49 Dose: Not Given Heparin Sodium (Porcine) (Heparin) 5,000 units SC Q12 [facility]; Protocol Last Admin: 09/08/18 08:49 Dose: Not Given Hydralazine HCl (Apresoline) 10 mg PO TID PRN PRN Reason: Systolic Blood Pressure Iron Sucrose 100 mg/ Sodium (Chloride) 105 mls @ 105 mls/hr IVPB DAILY [facility] Stop: 09/17/18 12:46 Last Admin: 09/08/18 08:49 Dose: Not Given Vitamin B Complex/Vit C/Folic Acid (Nephro-Yuridia) 1 tab PO DAILY [facility] Last Admin: 09/08/18 08:49 Dose: Not Given - Labs Labs: 09/08/18 05:45 09/08/18 05:45 PT 9.9 Seconds (9.8-13.1) 09/05/18 11:03 INR 0.9 09/05/18 11:03 APTT 50.1 Seconds (25.6-37.1) H 09/05/18 11:03 - Constitutional Appears: Non-toxic, No Acute Distress - Respiratory Exam Respiratory Exam: NORMAL BREATHING PATTERN Additional comments: HD catheter in place, currently undergoing dialysis - Cardiovascular Exam Cardiovascular Exam: REGULAR RHYTHM - Extremities Exam Extremities Exam: absent: Calf Tenderness, Pedal Edema - Neurological Exam Neurological Exam: Alert, Oriented x3 - Psychiatric Exam Psychiatric exam: Normal Affect - Skin Skin Exam: Dry, Intact Assessment and Plan - Assessment and Plan (Free Text) Assessment: 32 yo M with hx of recently diagnosed (April 2018) hypertension, EtOH abuse, admitted for acute renal failure. During admission was found to have elevated troponins as well, but after cardio consult, deemed to be due to uremia and not cardiac in origin; has since resolved. Pt underwent dialysis 09/05, 09/06; BUN/Cr still persistently elevated; HD today as well. Nephrology on board. Plan: 1. Acute renal failure, uremia, aoztemia - Etiology unknown, likely secondary to underlying renal disease - s/p HD cath placement by IR - Nephrology consulted; received HD on 09/05 and 09/06; HD today. GN workup sent, workup also includes renin/aldosterone, metanephrine, renal artery doppler, Vit D, PTH - Renal u/s sig for cortical changes, renal disease, renal arteries patent - Continued renal workup pending as per nephrology 2. Global ST changes with elevated troponin - Resolved, last trop neg from 09/06 - Cardio consulted; likely secondary to renal impairment rather than cardiac origin - Pt continues to be asymptomatic - Echo: EF 50-55% with global LV strain and LVH; mild to moderate pericardial effusion - Continue with B-rebecca (coreg) 3. Hypertensive Urgency -Likely secondary to acute renal failure -Improved after HD, currently stable -Continue with scheduled amlodipine and hydralazine as needed 4. Dyslipidemia - Taking statin 5. Anemia, normocytic - Likely acute on chronic due to acute renal failure - Stable - As per nephro- started iron, MVI, low dose epogen 6. Hypokalemia - Resolved 7. Hypocalcemia - Corrected is 9.1 - Replace as needed - Monitor on CMP 8. DVT prophylaxis - Heparin SC BID
--- NOTE | 2018-09-08 13:23 | CP.PCM.PN ---
Subjective - Date & Time of Evaluation Date of Evaluation: 09/08/18 Time of Evaluation: 12:40 - Subjective Subjective: Pt just finished dialysis. Appears very comfortable. Pt states that he feels miuch better. No CP or SOB Objective - Vital Signs/Intake and Output Vital Signs (last 24 hours): Temp Pulse Resp BP Pulse Ox 98.2 F 68 20 137/85 99 09/08/18 08:46 09/08/18 08:46 09/08/18 08:46 09/08/18 08:46 09/08/18 08:46 - Medications Medications: Current Medications Amlodipine Besylate (Norvasc) 10 mg PO DAILY [facility] Last Admin: 09/08/18 12:51 Dose: 10 mg Aspirin (Aspirin Chewable) 81 mg PO DAILY [facility] Last Admin: 09/08/18 12:50 Dose: 81 mg Atorvastatin Calcium (Lipitor) 20 mg PO DAILY [facility] Last Admin: 09/08/18 12:51 Dose: 20 mg Carvedilol (Coreg) 6.25 mg PO Q12 [facility] Last Admin: 09/08/18 12:50 Dose: 6.25 mg Heparin Sodium (Porcine) (Heparin) 5,000 units SC Q12 [facility]; Protocol Last Admin: 09/08/18 12:51 Dose: 5,000 units Hydralazine HCl (Apresoline) 10 mg PO TID PRN PRN Reason: Systolic Blood Pressure Iron Sucrose 100 mg/ Sodium (Chloride) 105 mls @ 105 mls/hr IVPB DAILY [facility] Stop: 09/17/18 12:46 Last Admin: 09/08/18 12:49 Dose: 105 mls/hr Vitamin B Complex/Vit C/Folic Acid (Nephro-Yuridia) 1 tab PO DAILY [facility] Last Admin: 09/08/18 12:51 Dose: 1 tab - Labs Labs: 09/08/18 05:45 09/08/18 05:45 PT 9.9 Seconds (9.8-13.1) 09/05/18 11:03 INR 0.9 09/05/18 11:03 APTT 50.1 Seconds (25.6-37.1) H 09/05/18 11:03 - Constitutional Appears: No Acute Distress - Head Exam Head Exam: NORMAL INSPECTION - Eye Exam Additional comments: No icterus - ENT Exam ENT Exam: Mucous Membranes Moist - Neck Exam Neck Exam: Normal Inspection - Respiratory Exam Respiratory Exam: NORMAL BREATHING PATTERN Additional comments: Lungs clear - Cardiovascular Exam Cardiovascular Exam: REGULAR RHYTHM Additional comments: No rub - GI/Abdominal Exam GI & Abdominal Exam: Soft Additional comments: No tenderness - Extremities Exam Additional comments: No edema Assessment and Plan - Assessment and Plan (Free Text) Assessment: CKD. Pt had presented with renal failure U uremic Sm. Dialysis was initiated. At this time it appears that Pt will remain on dialysis Pt also has nephrotic syndrome. Etiology unclear at this time. Serologies for SLE, ANCA associated GN & anti GBM are negative. Pt is not a diabetic. Pt will need Kidney Bx to exclude treatable diseases. Moderate pericardial effusio but no signs of tamponade Cardiomyopathy & Valvular heart dis. HTN is now well controlled. Plan: Continue HD 3 xwk Phos is controlled PTH
[2018-09-08] MEDS: Ergocalciferol 50,000 Intl Units Cap PO SCH (16:37)
[2018-09-09 02:50] LABS: ANCA SCREEN NEGATIVE (NEGATIVE)
[2018-09-09 07:17] LABS: HEMOGLOBIN 10.7 g/dL (12.0-18.0); MEAN CELL VOLUME 88.9 fl (80.0-94.0); MEAN CORPUSCULAR HEMOGLOBIN 30.9 pg (27.0-31.0); MEAN CORPUSCULAR HGB CONC 34.7 g/dL (33.0-37.0); RBC 3.46 Mil/uL (4.40-5.90); RED CELL DISTRIBUTION WIDTH 13.1 % (11.5-14.5); WHITE BLOOD COUNT 7.6 K/uL (4.8-10.8)
[2018-09-09 07:40] LABS: ALB/GLOB RATIO 1.1 (1.0-2.1); ALBUMIN 2.9 g/dL (3.5-5.0); CALCIUM 8.2 mg/dL (8.4-10.2)
[2018-09-09] MEDS: Multivitamin Vitamin B Complex (Nephro-Vite) Tab PO SCH (08:56)
--- NOTE | 2018-09-09 09:35 | CP.PCM.PN ---
<Murtaza Holguina - Last Filed: 09/09/18 11:25> Subjective - Date & Time of Evaluation Date of Evaluation: 09/09/18 Time of Evaluation: 08:50 - Subjective Subjective: Pt seen and evaluated at bedside this am; no acute events overnight. Was sitting up eating breakfast, states he is feeling better overall. Objective - Vital Signs/Intake and Output Vital Signs (last 24 hours): Temp Pulse Resp BP Pulse Ox 97.7 F 74 20 144/85 98 09/09/18 09:10 09/09/18 09:10 09/09/18 09:10 09/09/18 09:10 09/09/18 09:10 - Medications Medications: Current Medications Amlodipine Besylate (Norvasc) 10 mg PO DAILY [facility] Last Admin: 09/09/18 08:56 Dose: 10 mg Aspirin (Aspirin Chewable) 81 mg PO DAILY [facility] Last Admin: 09/09/18 08:55 Dose: 81 mg Atorvastatin Calcium (Lipitor) 20 mg PO DAILY [facility] Last Admin: 09/09/18 08:55 Dose: 20 mg Carvedilol (Coreg) 6.25 mg PO Q12 [facility] Last Admin: 09/09/18 08:55 Dose: 6.25 mg Ergocalciferol (Drisdol 50,000 Intl Units Cap) 1 cap PO Q7D [facility] Stop: 09/29/18 14:01 Last Admin: 09/08/18 16:37 Dose: 1 cap Heparin Sodium (Porcine) (Heparin) 5,000 units SC Q12 [facility]; Protocol Last Admin: 09/09/18 08:55 Dose: 5,000 units Hydralazine HCl (Apresoline) 10 mg PO TID PRN PRN Reason: Systolic Blood Pressure Iron Sucrose 100 mg/ Sodium (Chloride) 105 mls @ 105 mls/hr IVPB DAILY [facility] Stop: 09/17/18 12:46 Last Admin: 09/09/18 08:56 Dose: 105 mls/hr Sevelamer HCl (Renagel) 800 mg PO TID [facility] Vitamin B Complex/Vit C/Folic Acid (Nephro-Yuridia) 1 tab PO DAILY [facility] Last Admin: 09/09/18 08:56 Dose: 1 tab - Labs Labs: 09/09/18 05:30 09/09/18 05:30 PT 9.9 Seconds (9.8-13.1) 09/05/18 11:03 INR 0.9 09/05/18 11:03 APTT 50.1 Seconds (25.6-37.1) H 09/05/18 11:03 - Constitutional Appears: No Acute Distress - Respiratory Exam Respiratory Exam: NORMAL BREATHING PATTERN. absent: Respiratory Distress Additional comments: HD catheter in place L side - Cardiovascular Exam Cardiovascular Exam: REGULAR RHYTHM, +S1, +S2 - GI/Abdominal Exam GI & Abdominal Exam: absent: Tenderness - Extremities Exam Extremities Exam: Normal Inspection. absent: Calf Tenderness - Neurological Exam Neurological Exam: Alert, Oriented x3 - Psychiatric Exam Psychiatric exam: Normal Affect - Skin Skin Exam: Dry, Warm Assessment and Plan - Assessment and Plan (Free Text) Assessment: 32 yo M with hx of recently diagnosed (April 2018) hypertension, EtOH abuse, admitted for acute renal failure. During admission was found to have elevated troponins as well, but after cardio consult, deemed to be due to uremia and not cardiac in origin; has since resolved. Pt underwent dialysis 09/05, 09/06, 09/08; BUN/Cr still persistently elevated. Nephrology on board: pt has nephrotic syndrome of unclear etiology unclear at this time. Serologies for SLE, ANCA associated GN & anti GBM are negative. Will need kidney biopsy to rule out treatable causes; will need more permanent HD access placement as well. Plan: 1. Acute renal failure, uremia, aoztemia - Etiology unknown, likely secondary to underlying renal disease; will need kidney biopsy - s/p HD cath placement by IR; will need more permanent access - Nephrology consulted; received HD on 09/05, 09/06, 09/08; serologies for SLE, ANCA associated GN & anti GBM are negative - Renal u/s sig for cortical changes, renal disease, renal arteries patent 2. Global ST changes with elevated troponin - Resolved, last trop neg from 09/06 - Cardio consulted; likely secondary to renal impairment rather than cardiac origin - Pt continues to be asymptomatic - Echo: EF 50-55% with global LV strain and LVH; mild to moderate pericardial effusion - Continue with B-rebecca (coreg) 3. Hypertensive Urgency -Likely secondary to acute renal failure -Improved after HD, currently stable -Continue with scheduled amlodipine and hydralazine as needed 4. Dyslipidemia - Taking statin 5. Anemia, normocytic - Likely acute on chronic due to acute renal failure - Stable - As per nephro- started iron, MVI, low dose epogen 6. Hypokalemia - Resolved 7. Hypocalcemia - Corrected is 9.1 - Replace as needed - Monitor on CMP 8. DVT prophylaxis - Heparin SC BID <Eden Mai - Last Filed: 09/09/18 17:24> Objective - Vital Signs/Intake and Output Vital Signs (last 24 hours): Temp Pulse Resp BP Pulse Ox 97.3 F L 48 L 18 129/74 96 09/09/18 15:59 09/09/18 15:59 09/09/18 15:59 09/09/18 15:59 09/09/18 15:59 - Medications Medications: Current Medications Amlodipine Besylate (Norvasc) 10 mg PO DAILY [facility] Last Admin: 09/09/18 08:56 Dose: 10 mg Atorvastatin Calcium (Lipitor) 20 mg PO DAILY [facility] Last Admin: 09/09/18 08:55 Dose: 20 mg Carvedilol (Coreg) 6.25 mg PO Q12 [facility] Last Admin: 09/09/18 08:55 Dose: 6.25 mg Ergocalciferol (Drisdol 50,000 Intl Units Cap) 1 cap PO Q7D [facility] Stop: 09/29/18 14:01 Last Admin: 09/08/18 16:37 Dose: 1 cap Heparin Sodium (Porcine) (Heparin) 5,000 units SC Q12 [facility]; Protocol Last Admin: 09/09/18 08:55 Dose: 5,000 units Hydralazine HCl (Apresoline) 10 mg PO TID PRN PRN Reason: Systolic Blood Pressure Iron Sucrose 100 mg/ Sodium (Chloride) 105 mls @ 105 mls/hr IVPB DAILY [facility] Stop: 09/17/18 12:46 Last Admin: 09/09/18 08:56 Dose: 105 mls/hr Sevelamer HCl (Renagel) 800 mg PO TID [facility] Last Admin: 09/09/18 14:10 Dose: Not Given Vitamin B Complex/Vit C/Folic Acid (Nephro-Yuridia) 1 tab PO DAILY [facility] Last Admin: 09/09/18 08:56 Dose: 1 tab - Labs Labs: 09/09/18 05:30 09/09/18 05:30 PT 9.9 Seconds (9.8-13.1) 10/30/18 11:03 INR 0.9 09/05/18 11:03 APTT 50.1 Seconds (25.6-37.1) H 09/05/18 11:03 Attending/Attestation - Attestation I have personally seen and examined this patient.: Yes I have fully participated in the care of the patient.: Yes I have reviewed all pertinent clinical information, including history, physical exam and plan: Yes
--- NOTE | 2018-09-09 11:43 | CP.PCM.PN ---
Subjective - Date & Time of Evaluation Date of Evaluation: 09/09/18 Time of Evaluation: 11:30 - Subjective Subjective: No c/o SOB or CP Objective - Vital Signs/Intake and Output Vital Signs (last 24 hours): Temp Pulse Resp BP Pulse Ox 97.7 F 74 20 144/85 98 09/09/18 09:10 09/09/18 09:10 09/09/18 09:10 09/09/18 09:10 09/09/18 09:10 - Medications Medications: Current Medications Amlodipine Besylate (Norvasc) 10 mg PO DAILY [facility] Last Admin: 09/09/18 08:56 Dose: 10 mg Aspirin (Aspirin Chewable) 81 mg PO DAILY [facility] Last Admin: 09/09/18 08:55 Dose: 81 mg Atorvastatin Calcium (Lipitor) 20 mg PO DAILY [facility] Last Admin: 09/09/18 08:55 Dose: 20 mg Carvedilol (Coreg) 6.25 mg PO Q12 [facility] Last Admin: 09/09/18 08:55 Dose: 6.25 mg Ergocalciferol (Drisdol 50,000 Intl Units Cap) 1 cap PO Q7D [facility] Stop: 09/29/18 14:01 Last Admin: 09/08/18 16:37 Dose: 1 cap Heparin Sodium (Porcine) (Heparin) 5,000 units SC Q12 [facility]; Protocol Last Admin: 09/09/18 08:55 Dose: 5,000 units Hydralazine HCl (Apresoline) 10 mg PO TID PRN PRN Reason: Systolic Blood Pressure Iron Sucrose 100 mg/ Sodium (Chloride) 105 mls @ 105 mls/hr IVPB DAILY [facility] Stop: 09/17/18 12:46 Last Admin: 09/09/18 08:56 Dose: 105 mls/hr Sevelamer HCl (Renagel) 800 mg PO TID [facility] Vitamin B Complex/Vit C/Folic Acid (Nephro-Yuridia) 1 tab PO DAILY [facility] Last Admin: 09/09/18 08:56 Dose: 1 tab - Labs Labs: 09/09/18 05:30 09/09/18 05:30 PT 9.9 Seconds (9.8-13.1) 09/05/18 11:03 INR 0.9 09/05/18 11:03 APTT 50.1 Seconds (25.6-37.1) H 09/05/18 11:03 - Constitutional Appears: No Acute Distress - Head Exam Head Exam: NORMAL INSPECTION - Eye Exam Eye Exam: Normal appearance - ENT Exam ENT Exam: Mucous Membranes Moist - Respiratory Exam Respiratory Exam: NORMAL BREATHING PATTERN Additional comments: Lungs clear - Cardiovascular Exam Cardiovascular Exam: REGULAR RHYTHM - Extremities Exam Additional comments: No edema Assessment and Plan - Assessment and Plan (Free Text) Assessment: Stage V kidney ris, On HD Proteinuria HTN Anemia of CKD Plan: Stable on dialysis BP is controlled On Iron Cont HD MWF
[2018-09-10 08:47] LABS: CALCIUM 8.2 mg/dL (8.4-10.2)
[2018-09-10] MEDS: Multivitamin Vitamin B Complex (Nephro-Vite) Tab PO SCH (09:01)
--- NOTE | 2018-09-10 09:48 | CP.PCM.PN ---
<Jethro Hannah - Last Filed: 09/10/18 14:18> Subjective - Date & Time of Evaluation Date of Evaluation: 09/10/18 Time of Evaluation: 09:50 - Subjective Subjective: Pateint seen today at bedside, sitting comfortably, NAD, denies ACOSTA, chest pain, SOB, Abdominal pain, N/V/D, fever, chills or any other acute medical complain at this time. Objective - Vital Signs/Intake and Output Vital Signs (last 24 hours): Temp Pulse Resp BP Pulse Ox 98.3 F 72 19 138/83 98 09/10/18 07:57 09/10/18 07:57 09/10/18 07:57 09/10/18 07:57 09/10/18 07:57 - Medications Medications: Current Medications Amlodipine Besylate (Norvasc) 10 mg PO DAILY [facility] Last Admin: 09/10/18 09:01 Dose: 10 mg Atorvastatin Calcium (Lipitor) 20 mg PO DAILY [facility] Last Admin: 09/10/18 09:01 Dose: 20 mg Carvedilol (Coreg) 6.25 mg PO Q12 [facility] Last Admin: 09/10/18 09:01 Dose: 6.25 mg Ergocalciferol (Drisdol 50,000 Intl Units Cap) 1 cap PO Q7D [facility] Stop: 09/29/18 14:01 Last Admin: 09/08/18 16:37 Dose: 1 cap Heparin Sodium (Porcine) (Heparin) 5,000 units SC Q12 [facility]; Protocol Last Admin: 09/10/18 09:02 Dose: 5,000 units Hydralazine HCl (Apresoline) 10 mg PO TID PRN PRN Reason: Systolic Blood Pressure Iron Sucrose 100 mg/ Sodium (Chloride) 105 mls @ 105 mls/hr IVPB DAILY [facility] Stop: 09/17/18 12:46 Last Admin: 09/10/18 09:01 Dose: 105 mls/hr Sevelamer HCl (Renagel) 800 mg PO TID [facility] Last Admin: 09/10/18 09:01 Dose: 800 mg Vitamin B Complex/Vit C/Folic Acid (Nephro-Yuridia) 1 tab PO DAILY [facility] Last Admin: 09/10/18 09:01 Dose: 1 tab - Labs Labs: 09/09/18 05:09/10/18 07:00 PT 9.9 Seconds (9.8-13.1) 09/05/18 11:03 INR 0.9 09/05/18 11:03 APTT 50.1 Seconds (25.6-37.1) H 09/05/18 11:03 - Constitutional Appears: No Acute Distress - Head Exam Head Exam: ATRAUMATIC, NORMOCEPHALIC - Eye Exam Eye Exam: EOMI, PERRL - ENT Exam ENT Exam: Mucous Membranes Moist - Neck Exam Neck Exam: Full ROM - Respiratory Exam Respiratory Exam: Clear to Ausculation Bilateral. absent: Wheezes - Cardiovascular Exam Cardiovascular Exam: RRR, +S1, +S2 - GI/Abdominal Exam GI & Abdominal Exam: Soft, Normal Bowel Sounds. absent: Tenderness, Mass - Extremities Exam Extremities Exam: Full ROM - Back Exam Back Exam: NORMAL INSPECTION - Neurological Exam Neurological Exam: Alert, CN II-XII Intact, Oriented x3 - Psychiatric Exam Psychiatric exam: Normal Affect, Normal Mood - Skin Skin Exam: Normal Color, Warm Assessment and Plan - Assessment and Plan (Free Text) Assessment: 32 yo M with hx of recently diagnosed (April 2018) hypertension, EtOH abuse, admitted for acute renal failure. During admission was found to have elevated troponins as well, but after cardio consult, deemed to be due to uremia and not cardiac in origin; has since resolved. Pt underwent dialysis 09/05, 09/06, 09/08; BUN/Cr still persistently elevated. Nephrology on board: pt has nephrotic syndrome of unclear etiology unclear at this time. Serologies for SLE, ANCA associated GN & anti GBM are negative. Planning for kidney biopsy tomorrow 09/11 to rule out cause of Renal failure; will need more permanent HD access placement. Plan: 1. Renal failure, uremia, aoztemia - Etiology unknown, likely secondary to underlying renal disease; kidney biopsy plan for 09/11 - Hold antiplatelets/anticoagulants for Bx procedure - s/p HD cath placement by [facility].will need more permanent access - Nephrology consulted; received HD on 09/05, 09/06, 09/08; serologies for SLE, ANCA associated GN & anti GBM are negative - Renal u/s shows cortical changes, renal disease, renal arteries patent - Sevelamer 800 PO TID , as per Nephro. 2. Global ST changes with elevated troponin - Resolved, last trop neg from 09/06 - Cardio consulted; likely secondary to renal impairment rather than cardiac origin - Pt continues to be asymptomatic - Echo: EF 50-55% with global LV strain and LVH; mild to moderate pericardial effusion - C/w B-rebecca: Coreg 6.25 PO Q12h 3. Hypertensive urgency -Likely secondary to acute renal failure -currently stable -C/w amlodipine schedule -C/w hydralazine as needed 4. Dyslipidemia -Atorvastatin 20 PO QD 5. Anemia, normocytic - Likely acute on chronic due to acute renal failure - Stable - Iron S 100 mg IVP as per nephro - 6. Hypokalemia -Resolved -K 3.9 today 7. Hypocalcemia - Corrected is 9.1 - Replace as needed - F/u BMP 8. DVT prophylaxis - Heparin SC BID <Eden Mai - Last Filed: 09/10/18 18:56> Objective - Vital Signs/Intake and Output Vital Signs (last 24 hours): Temp Pulse Resp BP Pulse Ox 97.8 F 76 20 125/74 100 09/10/18 17:34 09/10/18 17:34 09/10/18 17:34 09/10/18 17:34 09/10/18 17:34 - Medications Medications: Current Medications Amlodipine Besylate (Norvasc) 10 mg PO DAILY [facility] Last Admin: 09/10/18 09:01 Dose: 10 mg Atorvastatin Calcium (Lipitor) 20 mg PO DAILY [facility] Last Admin: 09/10/18 09:01 Dose: 20 mg Carvedilol (Coreg) 6.25 mg PO Q12 [facility] Last Admin: 09/10/18 09:01 Dose: 6.25 mg Ergocalciferol (Drisdol 50,000 Intl Units Cap) 1 cap PO Q7D [facility] Stop: 09/29/18 14:01 Last Admin: 09/08/18 16:37 Dose: 1 cap Heparin Sodium (Porcine) (Heparin) 5,000 units SC Q12 [facility]; Protocol Last Admin: 09/10/18 09:02 Dose: 5,000 units Hydralazine HCl (Apresoline) 10 mg PO TID PRN PRN Reason: Systolic Blood Pressure Iron Sucrose 100 mg/ Sodium (Chloride) 105 mls @ 105 mls/hr IVPB DAILY [facility] Stop: 09/17/18 12:46 Last Admin: 09/10/18 09:01 Dose: 105 mls/hr Sevelamer HCl (Renagel) 800 mg PO TID [facility] Last Admin: 09/10/18 17:21 Dose: 800 mg Vitamin B Complex/Vit C/Folic Acid (Nephro-Yuridia) 1 tab PO DAILY [facility] Last Admin: 09/10/18 09:01 Dose: 1 tab - Labs Labs: 09/09/18 05:30 09/10/18 07:00 PT 9.9 Seconds (9.8-13.1) 09/05/18 11:03 INR 0.9 09/05/18 11:03 APTT 50.1 Seconds (25.6-37.1) H 09/05/18 11:03 Attending/Attestation - Attestation I have personally seen and examined this patient.: Yes I have fully participated in the care of the patient.: Yes I have reviewed all pertinent clinical information, including history, physical exam and plan: Yes
[2018-09-11 07:05] LABS: CALCIUM 8.2 mg/dL (8.4-10.2)
--- NOTE | 2018-09-11 09:29 | CP.PCM.PN ---
<Mike AlanisJethro - Last Filed: 09/11/18 10:35> Subjective - Date & Time of Evaluation Date of Evaluation: 09/11/18 Time of Evaluation: 08:50 - Subjective Subjective: Patient seen today at bedside, NAD, hemodialysis nurse in room getting ready to satrt HD. Patient denies ACOSTA, chest pain, SOB, Abdominal pain, N/V/D, fever, chills or any other acute medical complain at this time. Patient aware of plans for biopsy procedure today (still pending time of bx). Objective - Vital Signs/Intake and Output Vital Signs (last 24 hours): Temp Pulse Resp BP Pulse Ox 97.9 F 79 19 134/73 97 09/11/18 08:13 09/11/18 08:13 09/11/18 08:13 09/11/18 08:13 09/11/18 08:13 - Medications Medications: Current Medications Amlodipine Besylate (Norvasc) 10 mg PO DAILY [facility] Last Admin: 09/10/18 09:01 Dose: 10 mg Atorvastatin Calcium (Lipitor) 20 mg PO DAILY [facility] Last Admin: 09/10/18 09:01 Dose: 20 mg Carvedilol (Coreg) 6.25 mg PO Q12 [facility] Last Admin: 09/10/18 21:35 Dose: 6.25 mg Ergocalciferol (Drisdol 50,000 Intl Units Cap) 1 cap PO Q7D [facility] Stop: 09/29/18 14:01 Last Admin: 09/08/18 16:37 Dose: 1 cap Heparin Sodium (Porcine) (Heparin) 5,000 units SC Q12 [facility]; Protocol Last Admin: 09/10/18 09:02 Dose: 5,000 units Hydralazine HCl (Apresoline) 10 mg PO TID PRN PRN Reason: Systolic Blood Pressure Iron Sucrose 100 mg/ Sodium (Chloride) 105 mls @ 105 mls/hr IVPB DAILY [facility] Stop: 09/17/18 12:46 Last Admin: 09/10/18 09:01 Dose: 105 mls/hr Sevelamer HCl (Renagel) 800 mg PO TID [facility] Last Admin: 09/10/18 17:21 Dose: 800 mg Vitamin B Complex/Vit C/Folic Acid (Nephro-Yuridia) 1 tab PO DAILY [facility] Last Admin: 09/10/18 09:01 Dose: 1 tab - Labs Labs: 09/09/18 05:30 09/11/18 05:45 PT 9.9 Seconds (9.8-13.1) 09/05/18 11:03 INR 0.9 09/05/18 11:03 APTT 50.1 Seconds (25.6-37.1) H 09/05/18 11:03 - Additional Findings Additional findings: - Constitutional Appears: No Acute Distress - Head Exam Head Exam: ATRAUMATIC, NORMOCEPHALIC - Eye Exam Eye Exam: EOMI, PERRL - ENT Exam ENT Exam: Mucous Membranes Moist - Neck Exam Neck Exam: Full ROM - Respiratory Exam Respiratory Exam: Clear to Ausculation Bilateral. absent: Wheezes - Cardiovascular Exam Cardiovascular Exam: RRR, +S1, +S2 - GI/Abdominal Exam GI & Abdominal Exam: Soft, Normal Bowel Sounds. absent: Tenderness, Mass - Extremities Exam Extremities Exam: Full ROM - Back Exam Back Exam: NORMAL INSPECTION - Neurological Exam Neurological Exam: Alert, CN II-XII Intact, Oriented x3 - Psychiatric Exam Psychiatric exam: Normal Affect, Normal Mood - Skin Skin Exam: Normal Color, Warm Assessment and Plan - Assessment and Plan (Free Text) Assessment: 32 yo M with hx of recently diagnosed (April 2018) hypertension, EtOH abuse, admitted for acute renal failure. During admission was found to have elevated troponins as well, but after cardio consult, deemed to be due to uremia and not cardiac in origin; has since resolved. Pt underwent dialysis 09/05, 09/06, 09/08; BUN/Cr still persistently elevated. Nephrology on board: pt has nephrotic syndrome of unclear etiology unclear at this time. Serologies for SLE, ANCA associated GN & anti GBM are negative. Patient is having HD today via [place] cath placed on right upper chest. Patient will need a more permanent HD access placement to continue HD. Planning for kidney biopsy today 09/11 after HD, pending final decision by IR. Plan: 1. Renal failure, uremia, aoztemia - Etiology unknown, likely secondary to underlying renal disease; kidney biopsy plan for 09/11 - Hold antiplatelets/anticoagulants (Heparin on hold) for Bx procedure - s/p HD cath placement by IR permacath R upper chest.will need more permanent access - Nephrology consulted; received HD on 09/05, 09/06, 09/08; serologies for SLE, ANCA associated GN & anti GBM are negative - Renal u/s shows cortical changes, renal disease, renal arteries patent - Sevelamer 800 PO TID , as per Nephro. - HD -W-F 2. Global ST changes with elevated troponin - Resolved, last trop neg from 09/06 - Cardio consulted; likely secondary to renal impairment rather than cardiac origin - Pt continues to be asymptomatic - Echo: EF 50-55% with global LV strain and LVH; mild to moderate pericardial effusion - C/w B-rebecca: Coreg 6.25 PO Q12h 3. Hypertensive urgency -Likely secondary to acute renal failure -currently stable -C/w amlodipine schedule -C/w hydralazine as needed 4. Dyslipidemia -Atorvastatin 20 PO QD 5. Anemia, normocytic - Likely acute on chronic due to acute renal failure - Stable - Iron S 100 mg IVP as per nephro - -F/u CBC in AM 6. Hypokalemia -Resolved -K 4.0 today 7. Hypocalcemia - Corrected is 9.1 - Replace as needed - F/u BMP 8. DVT prophylaxis - Heparin SC BID <Barby Hernández K - Last Filed: 09/11/18 16:09> Objective - Vital Signs/Intake and Output Vital Signs (last 24 hours): Temp Pulse Resp BP Pulse Ox 97.9 F 79 19 134/73 97 09/11/18 08:13 09/11/18 11:57 09/11/18 08:13 09/11/18 11:57 09/11/18 08:13 - Medications Medications: Current Medications Amlodipine Besylate (Norvasc) 10 mg PO DAILY [facility] Last Admin: 09/11/18 11:57 Dose: 10 mg Atorvastatin Calcium (Lipitor) 20 mg PO DAILY [facility] Last Admin: 09/11/18 11:56 Dose: 20 mg Carvedilol (Coreg) 6.25 mg PO Q12 [facility] Last Admin: 09/11/18 11:55 Dose: 6.25 mg Ergocalciferol (Drisdol 50,000 Intl Units Cap) 1 cap PO Q7D [facility] Stop: 09/29/18 14:01 Last Admin: 09/08/18 16:37 Dose: 1 cap Heparin Sodium (Porcine) (Heparin) 5,000 units SC Q12 [facility]; Protocol Last Admin: 09/10/18 09:02 Dose: 5,000 units Hydralazine HCl (Apresoline) 10 mg PO TID PRN PRN Reason: Systolic Blood Pressure Last Admin: 09/11/18 11:56 Dose: 10 mg Iron Sucrose 100 mg/ Sodium (Chloride) 105 mls @ 105 mls/hr IVPB MWF [facility] Stop: 09/22/18 09:59 Sevelamer HCl (Renagel) 800 mg PO TID [facility] Last Admin: 09/11/18 13:42 Dose: 800 mg Vitamin B Complex/Vit C/Folic Acid (Nephro-Yuridia) 1 tab PO DAILY [facility] Last Admin: 09/11/18 11:55 Dose: 1 tab - Labs Labs: 09/09/18 05:30 09/11/18 05:45 PT 9.9 Seconds (9.8-13.1) 09/05/18 11:03 INR 0.9 09/05/18 11:03 APTT 50.1 Seconds (25.6-37.1) H 09/05/18 11:03 Attending/Attestation - Attestation I have personally seen and examined this patient.: Yes I have fully participated in the care of the patient.: Yes I have reviewed all pertinent clinical information, including history, physical exam and plan: Yes Notes (Text): 09/11/18 16:08 agree with findings and plan as above. biopsy for tomorrow.
--- NOTE | 2018-09-11 11:48 | PCM.IRP ---
Objective - Vital Signs/Intake and Output Vital Signs (last 24 hours): Vital Signs - 24 hr 09/10/18 09/10/18 09/11/18 17:34 21:35 00:17 Temperature 97.8 F 98 F Pulse Rate 76 77 88 Respiratory 20 19 Rate Blood Pressure 125/74 145/90 130/74 O2 Sat by Pulse 100 99 Oximetry 09/11/18 08:13 Temperature 97.9 F Pulse Rate 79 Respiratory 19 Rate Blood Pressure 134/73 O2 Sat by Pulse 97 Oximetry - Medications Medications: Current Medications Amlodipine Besylate (Norvasc) 10 mg PO DAILY [facility] Last Admin: 09/10/18 09:01 Dose: 10 mg Atorvastatin Calcium (Lipitor) 20 mg PO DAILY [facility] Last Admin: 09/10/18 09:01 Dose: 20 mg Carvedilol (Coreg) 6.25 mg PO Q12 [facility] Last Admin: 09/10/18 21:35 Dose: 6.25 mg Ergocalciferol (Drisdol 50,000 Intl Units Cap) 1 cap PO Q7D [facility] Stop: 09/29/18 14:01 Last Admin: 09/08/18 16:37 Dose: 1 cap Heparin Sodium (Porcine) (Heparin) 5,000 units SC Q12 [facility]; Protocol Last Admin: 09/10/18 09:02 Dose: 5,000 units Hydralazine HCl (Apresoline) 10 mg PO TID PRN PRN Reason: Systolic Blood Pressure Iron Sucrose 100 mg/ Sodium (Chloride) 105 mls @ 105 mls/hr IVPB DAILY [facility] Stop: 09/17/18 12:46 Last Admin: 09/10/18 09:01 Dose: 105 mls/hr Sevelamer HCl (Renagel) 800 mg PO TID [facility] Last Admin: 09/10/18 17:21 Dose: 800 mg Vitamin B Complex/Vit C/Folic Acid (Nephro-Yuridia) 1 tab PO DAILY [facility] Last Admin: 09/10/18 09:01 Dose: 1 tab - Labs Labs (last 24 hours): Laboratory Results - last 24 hr 09/05/18 09/11/18 06:54 05:45 Sodium 138 Potassium 4.0 Chloride 106 Carbon Dioxide 25 Anion Gap 11 BUN 37 H Creatinine 8.0 H* Est GFR ( Amer) 9 Est GFR (Non-Af Amer) 8 Random Glucose 86 Calcium 8.2 L Plasma Metanephrine 43 Plasma Normetanephrine 517 H Plas Total Metaneph 560 H Assessment/Plan - Assessment and Plan (Free Text) Assessment: Request for dialysis catheter was completed by Dr. Guerra.
[2018-09-11] MEDS: Multivitamin Vitamin B Complex (Nephro-Vite) Tab PO SCH (11:55)
--- NOTE | 2018-09-11 14:07 | CP.PCM.PN ---
Subjective - Date & Time of Evaluation Date of Evaluation: 09/11/18 Time of Evaluation: 01:50 - Subjective Subjective: No complaints reported pt states that he feels better. Objective - Vital Signs/Intake and Output Vital Signs (last 24 hours): Temp Pulse Resp BP Pulse Ox 97.9 F 79 19 134/73 97 09/11/18 08:13 09/11/18 11:57 09/11/18 08:13 09/11/18 11:57 09/11/18 08:13 - Medications Medications: Current Medications Amlodipine Besylate (Norvasc) 10 mg PO DAILY [facility] Last Admin: 09/11/18 11:57 Dose: 10 mg Atorvastatin Calcium (Lipitor) 20 mg PO DAILY [facility] Last Admin: 09/11/18 11:56 Dose: 20 mg Carvedilol (Coreg) 6.25 mg PO Q12 [facility] Last Admin: 09/11/18 11:55 Dose: 6.25 mg Ergocalciferol (Drisdol 50,000 Intl Units Cap) 1 cap PO Q7D [facility] Stop: 09/29/18 14:01 Last Admin: 09/08/18 16:37 Dose: 1 cap Heparin Sodium (Porcine) (Heparin) 5,000 units SC Q12 [facility]; Protocol Last Admin: 09/10/18 09:02 Dose: 5,000 units Hydralazine HCl (Apresoline) 10 mg PO TID PRN PRN Reason: Systolic Blood Pressure Last Admin: 09/11/18 11:56 Dose: 10 mg Iron Sucrose 100 mg/ Sodium (Chloride) 105 mls @ 105 mls/hr IVPB DAILY [facility] Stop: 09/17/18 12:46 Last Admin: 09/11/18 12:58 Dose: 105 mls/hr Sevelamer HCl (Renagel) 800 mg PO TID [facility] Last Admin: 09/11/18 13:42 Dose: 800 mg Vitamin B Complex/Vit C/Folic Acid (Nephro-Yuridia) 1 tab PO DAILY [facility] Last Admin: 09/11/18 11:55 Dose: 1 tab - Labs Labs: 09/09/18 05:30 09/11/18 05:45 PT 9.9 Seconds (9.8-13.1) 09/05/18 11:03 INR 0.9 09/05/18 11:03 APTT 50.1 Seconds (25.6-37.1) H 09/05/18 11:03 - Constitutional Appears: No Acute Distress - Head Exam Head Exam: NORMAL INSPECTION - Eye Exam Eye Exam: Normal appearance - ENT Exam ENT Exam: Mucous Membranes Moist - Neck Exam Additional comments: JVD not distended - Respiratory Exam Respiratory Exam: NORMAL BREATHING PATTERN Additional comments: Lungs clear - Cardiovascular Exam Cardiovascular Exam: REGULAR RHYTHM Additional comments: No S3 or rub - GI/Abdominal Exam GI & Abdominal Exam: Soft - Extremities Exam Additional comments: No ECC Assessment and Plan - Assessment and Plan (Free Text) Assessment: Anemia Hb stable Plan: Continue HD per svhedule Add hectoral
[2018-09-12 06:47] LABS: HEMOGLOBIN 10.6 g/dL (12.0-18.0); MEAN CORPUSCULAR HEMOGLOBIN 30.5 pg (27.0-31.0); MEAN CORPUSCULAR HGB CONC 33.9 g/dL (33.0-37.0); RBC 3.47 Mil/uL (4.40-5.90); RED CELL DISTRIBUTION WIDTH 13.4 % (11.5-14.5); WHITE BLOOD COUNT 6.7 K/uL (4.8-10.8)
[2018-09-12 07:03] LABS: CALCIUM 8.3 mg/dL (8.4-10.2)
--- NOTE | 2018-09-12 08:12 | CP.PCM.PN ---
<Mike AlanisJethro - Last Filed: 09/12/18 09:55> Subjective - Date & Time of Evaluation Date of Evaluation: 09/12/18 Time of Evaluation: 08:05 - Subjective Subjective: Patient seen this morning, NAD, sates feeling well, denies headache, chest pain, SOB, abdominal pain, N/V, fever, chills or other acute medical complain at this time. Objective - Vital Signs/Intake and Output Vital Signs (last 24 hours): Temp Pulse Resp BP Pulse Ox 98.1 F 72 18 113/62 99 09/12/18 00:59 09/12/18 00:59 09/12/18 00:59 09/12/18 00:59 09/12/18 00:59 - Medications Medications: Current Medications Amlodipine Besylate (Norvasc) 10 mg PO DAILY [facility] Last Admin: 09/11/18 11:57 Dose: 10 mg Atorvastatin Calcium (Lipitor) 20 mg PO DAILY [facility] Last Admin: 09/11/18 11:56 Dose: 20 mg Carvedilol (Coreg) 6.25 mg PO Q12 [facility] Last Admin: 09/11/18 22:04 Dose: 6.25 mg Ergocalciferol (Drisdol 50,000 Intl Units Cap) 1 cap PO Q7D [facility] Stop: 09/29/18 14:01 Last Admin: 09/08/18 16:37 Dose: 1 cap Heparin Sodium (Porcine) (Heparin) 5,000 units SC Q12 [facility]; Protocol Last Admin: 09/10/18 09:02 Dose: 5,000 units Hydralazine HCl (Apresoline) 10 mg PO TID PRN PRN Reason: Systolic Blood Pressure Last Admin: 09/11/18 11:56 Dose: 10 mg Iron Sucrose 100 mg/ Sodium (Chloride) 105 mls @ 105 mls/hr IVPB MWF [facility] Stop: 09/22/18 09:59 Sevelamer HCl (Renagel) 800 mg PO TID [facility] Last Admin: 09/11/18 16:36 Dose: 800 mg Vitamin B Complex/Vit C/Folic Acid (Nephro-Yuridia) 1 tab PO DAILY [facility] Last Admin: 09/11/18 11:55 Dose: 1 tab - Labs Labs: 09/12/18 05:50 09/12/18 05:50 PT 9.9 Seconds (9.8-13.1) 09/05/18 11:03 INR 0.9 09/05/18 11:03 APTT 50.1 Seconds (25.6-37.1) H 09/05/18 11:03 - Additional Findings Additional findings: - Constitutional Appears: No Acute Distress - Head Exam Head Exam: ATRAUMATIC, NORMOCEPHALIC - Eye Exam Eye Exam: EOMI, PERRL - ENT Exam ENT Exam: Mucous Membranes Moist - Neck Exam Neck Exam: Full ROM. CHEST: HD cath present on right upper chest. - Respiratory Exam Respiratory Exam: Clear to Ausculation Bilateral. absent: Wheezes - Cardiovascular Exam Cardiovascular Exam: RRR, +S1, +S2 - GI/Abdominal Exam GI & Abdominal Exam: Soft, Normal Bowel Sounds. absent: Tenderness, Mass - Extremities Exam Extremities Exam: Full ROM, no edema - Back Exam Back Exam: NORMAL INSPECTION - Neurological Exam Neurological Exam: Alert, CN II-XII Intact, Oriented x3 - Psychiatric Exam Psychiatric exam: Normal Affect, Normal Mood Assessment and Plan - Assessment and Plan (Free Text) Assessment: 32 y/o M with hx of recently diagnosed (April 2018) hypertension, EtOH abuse, admitted for acute renal failure. During admission was found to have elevated troponins as well, but after cardio consult, deemed to be due to uremia and not cardiac in origin; has since resolved. Pt underwent dialysis 09/05, 09/06, 09/08; BUN/Cr still persistently elevated. Nephrology on board: pt has nephrotic syndrome of unclear etiology unclear at this time. Serologies for SLE, ANCA associated GN & anti GBM are negative. Patient is having HD today via [place] cath placed on right upper chest. Patient will need a more permanent HD access placement to continue HD. Plan: 1. Renal failure, uremia, aoztemia - Etiology unknown, likely secondary to underlying renal disease; kidney biopsy is pending. - Hold antiplatelets/anticoagulants (Heparin on hold) for Bx procedure - s/p HD cath placement by IR sujey R upper chest.will need more permanent access - Nephrology consulted; received HD on 09/05, 09/06, 09/08; serologies for SLE, ANCA associated GN & anti GBM are negative - Renal u/s shows cortical changes, renal disease, renal arteries patent - Sevelamer 800 PO TID, as per Nephro. - HD -W- 2. Global ST changes with elevated troponin - Resolved, last trop neg from 09/06 - Cardio consulted; likely secondary to renal impairment rather than cardiac o rigin - Pt continues to be asymptomatic - Echo: EF 50-55% with global LV strain and LVH; mild to moderate pericardial effusion - C/w B-rebecca: Coreg 6.25 PO Q12h 3. Hypertensive urgency -Resolved -Likely secondary to acute renal failure -currently stable -C/w amlodipine schedule -C/w hydralazine as needed 4. Dyslipidemia -Atorvastatin 20 PO QD 5. Anemia, normocytic - Likely acute on chronic due to acute renal failure - Stable - Iron S 100 mg IVP as per nephro - -F/u CBC in AM 6. Hypokalemia -Resolved -K 4.2 today 7. Hypocalcemia - Corrected is 9.2 - Replace as needed - F/u BMP 8. DVT prophylaxis - Heparin SC BID <Barby Hernández - Last Filed: 09/12/18 16:09> Objective - Vital Signs/Intake and Output Vital Signs (last 24 hours): Temp Pulse Resp BP Pulse Ox 98 F 66 20 123/67 97 09/12/18 08:24 09/12/18 10:26 09/12/18 08:24 09/12/18 10:26 09/12/18 08:24 - Medications Medications: Current Medications Amlodipine Besylate (Norvasc) 10 mg PO DAILY [facility] Last Admin: 09/12/18 10:26 Dose: 10 mg Atorvastatin Calcium (Lipitor) 20 mg PO DAILY [facility] Last Admin: 09/12/18 10:25 Dose: 20 mg Carvedilol (Coreg) 6.25 mg PO Q12 [facility] Last Admin: 09/12/18 10:25 Dose: 6.25 mg Ergocalciferol (Drisdol 50,000 Intl Units Cap) 1 cap PO Q7D [facility] Stop: 09/29/18 14:01 Last Admin: 09/08/18 16:37 Dose: 1 cap Heparin Sodium (Porcine) (Heparin) 5,000 units SC Q12 [facility]; Protocol Last Admin: 09/12/18 10:25 Dose: 5,000 units Hydralazine HCl (Apresoline) 10 mg PO TID PRN PRN Reason: Systolic Blood Pressure Last Admin: 09/11/18 11:56 Dose: 10 mg Iron Sucrose 100 mg/ Sodium (Chloride) 105 mls @ 105 mls/hr IVPB MWF [facility] Stop: 09/22/18 09:59 Sevelamer HCl (Renagel) 800 mg PO TID [facility] Last Admin: 09/12/18 13:00 Dose: 800 mg Vitamin B Complex/Vit C/Folic Acid (Nephro-Yuridia) 1 tab PO DAILY [facility] Last Admin: 09/12/18 10:24 Dose: 1 tab - Labs Labs: 09/12/18 05:50 09/12/18 05:50 PT 9.9 Seconds (9.8-13.1) 09/05/18 11:03 INR 0.9 09/05/18 11:03 APTT 50.1 Seconds (25.6-37.1) H 09/05/18 11:03 Attending/Attestation - Attestation I have personally seen and examined this patient.: Yes I have fully participated in the care of the patient.: Yes I have reviewed all pertinent clinical information, including history, physical exam and plan: Yes Notes (Text): 09/12/18 16:09 Seen examined and discussed with resident. Agree with findings and plan as above.
[2018-09-12] MEDS: Multivitamin Vitamin B Complex (Nephro-Vite) Tab PO SCH (10:24)
[2018-09-12 19:17] LABS: ALDO/PRA RATIO 3.1 Ratio (0.9-28.9)
[2018-09-13 06:21] LABS: HEMOGLOBIN 10.4 g/dL (12.0-18.0); MEAN CELL VOLUME 89.8 fl (80.0-94.0); MEAN CORPUSCULAR HEMOGLOBIN 31.4 pg (27.0-31.0); RBC 3.31 Mil/uL (4.40-5.90); RED CELL DISTRIBUTION WIDTH 13.3 % (11.5-14.5); WHITE BLOOD COUNT 5.4 K/uL (4.8-10.8)
[2018-09-13 06:43] LABS: ALB/GLOB RATIO 1.1 (1.0-2.1); ALBUMIN 3.2 g/dL (3.5-5.0); CALCIUM 8.5 mg/dL (8.4-10.2)
[2018-09-13] MEDS: Multivitamin Vitamin B Complex (Nephro-Vite) Tab PO SCH ×2 (08:36→10:29)
--- NOTE | 2018-09-13 09:52 | CP.PCM.PN ---
<Mike AlanisJethro - Last Filed: 09/13/18 10:50> Subjective - Date & Time of Evaluation Date of Evaluation: 09/13/18 Time of Evaluation: 09:25 - Subjective Subjective: Patient seen this morning, NAD, sates feeling well, denies headache, chest pain, SOB, abdominal pain, N/V, fever, chills or other acute medical complain at this time. Patient states he would like to go home now, I explained to patient about his CKD and the complications he can have including if he leaves the hospital without medical management, patient is illiterate and appears to not understands his disease process. (patient is Arabic speaker, I had a conversation with patient in Arabic). Objective - Vital Signs/Intake and Output Vital Signs (last 24 hours): Temp Pulse Resp BP Pulse Ox 97.5 F L 71 20 134/77 100 09/13/18 08:31 09/13/18 08:31 09/13/18 08:31 09/13/18 08:31 09/13/18 08:31 - Medications Medications: Current Medications Amlodipine Besylate (Norvasc) 10 mg PO DAILY [facility] Last Admin: 09/12/18 10:26 Dose: 10 mg Atorvastatin Calcium (Lipitor) 20 mg PO DAILY [facility] Last Admin: 09/12/18 10:25 Dose: 20 mg Carvedilol (Coreg) 6.25 mg PO Q12 [facility] Last Admin: 09/12/18 21:50 Dose: 6.25 mg Ergocalciferol (Drisdol 50,000 Intl Units Cap) 1 cap PO Q7D [facility] Stop: 09/29/18 14:01 Last Admin: 09/08/18 16:37 Dose: 1 cap Heparin Sodium (Porcine) (Heparin) 5,000 units SC Q12 [facility]; Protocol Last Admin: 09/12/18 21:50 Dose: Not Given Hydralazine HCl (Apresoline) 10 mg PO TID PRN PRN Reason: Systolic Blood Pressure Last Admin: 09/11/18 11:56 Dose: 10 mg Iron Sucrose 100 mg/ Sodium (Chloride) 105 mls @ 105 mls/hr IVPB MWF [facility] Stop: 09/22/18 09:59 Sevelamer HCl (Renagel) 800 mg PO TID [facility] Last Admin: 09/12/18 16:57 Dose: 800 mg Vitamin B Complex/Vit C/Folic Acid (Nephro-Yuridia) 1 tab PO DAILY [facility] Last Admin: 09/12/18 10:24 Dose: 1 tab - Labs Labs: 09/13/18 06:05 09/13/18 06:05 PT 9.9 Seconds (9.8-13.1) 09/05/18 11:03 INR 0.9 09/05/18 11:03 APTT 50.1 Seconds (25.6-37.1) H 09/05/18 11:03 - Constitutional Appears: No Acute Distress - Head Exam Head Exam: ATRAUMATIC, NORMOCEPHALIC - Eye Exam Eye Exam: EOMI - ENT Exam ENT Exam: Mucous Membranes Moist - Neck Exam Neck Exam: Full ROM - Respiratory Exam Respiratory Exam: Clear to Ausculation Bilateral - Cardiovascular Exam Cardiovascular Exam: RRR, +S1, +S2 - GI/Abdominal Exam GI & Abdominal Exam: Soft, Normal Bowel Sounds. absent: Tenderness - Extremities Exam Extremities Exam: Full ROM. absent: Pedal Edema - Neurological Exam Neurological Exam: Alert, Awake, Oriented x3 - Psychiatric Exam Psychiatric exam: Normal Mood - Skin Skin Exam: Pallor, Warm Assessment and Plan - Assessment and Plan (Free Text) Assessment: 32 y/o M with hx of recently diagnosed (April 2018) hypertension, EtOH abuse, admitted for acute renal failure. During admission was found to have elevated troponins as well, but after cardio consult, deemed to be due to uremia and not cardiac in origin; has since resolved. Pt underwent dialysis 09/05, 09/06, 09/08; BUN/Cr still persistently elevated. Nephrology on board: pt has nephrotic syndrome of unclear etiology unclear at this time. Serologies for SLE, ANCA associated GN & anti GBM are negative. Patient is having HD today via [place] cath placed on right upper chest. Patient will need a more permanent HD access placement to continue HD. Planning for kidney biopsy on 09/14 by IR. Plan: 1. Renal failure, uremia, aoztemia - Etiology unknown, likely secondary to underlying renal disease; kidney biopsy is pending, planned for 09/14. - Hold antiplatelets/anticoagulants (Heparin on hold) for Bx procedure - s/p HD cath placement by IR permacath R upper chest.will need more permanent access - Nephrology consulted; received HD on 09/05, 09/06, 09/08; serologies for SLE, ANCA associated GN & anti GBM are negative - Renal u/s shows cortical changes, renal disease, renal arteries patent - Sevelamer 800 PO TID, as per Nephro. - HD -W- 2. Global ST changes with elevated troponin - Resolved, last trop neg from 09/06 - Cardio consulted; likely secondary to renal impairment rather than cardiac origin - Pt continues to be asymptomatic - Echo: EF 50-55% with global LV strain and LVH; mild to moderate pericardial effusion - C/w B-rebecca: Coreg 6.25 PO Q12h 3. Hypertensive urgency -Resolved -Likely secondary to acute renal failure -currently stable -C/w amlodipine schedule -C/w hydralazine as needed 4. Dyslipidemia -Atorvastatin 20 PO QD 5. Anemia, normocytic - Likely acute on chronic due to acute renal failure - Stable - Iron S 100 mg IVP as per nephro - - F/u CBC in AM 6. Hypokalemia -Resolved -K 4.4 today 7. Hypocalcemia - Resolved -Corrected Ca 9.1 - Replace as needed - F/u BMP 8. DVT prophylaxis - Heparin SC BID <Barby Hernández K - Last Filed: 09/13/18 13:36> Objective - Vital Signs/Intake and Output Vital Signs (last 24 hours): Temp Pulse Resp BP Pulse Ox 97.5 F L 71 20 134/77 100 09/13/18 09:00 09/13/18 08:31 09/13/18 08:31 09/13/18 08:31 09/13/18 08:31 - Medications Medications: Current Medications Amlodipine Besylate (Norvasc) 10 mg PO DAILY [facility] Last Admin: 09/13/18 11:42 Dose: Not Given Atorvastatin Calcium (Lipitor) 20 mg PO DAILY [facility] Last Admin: 09/13/18 10:29 Dose: 20 mg Carvedilol (Coreg) 6.25 mg PO Q12 [facility] Last Admin: 09/13/18 11:42 Dose: Not Given Ergocalciferol (Drisdol 50,000 Intl Units Cap) 1 cap PO Q7D [facility] Stop: 09/29/18 14:01 Last Admin: 09/08/18 16:37 Dose: 1 cap Heparin Sodium (Porcine) (Heparin) 5,000 units SC Q12 [facility]; Protocol Last Admin: 09/13/18 13:33 Dose: 5,000 units Hydralazine HCl (Apresoline) 10 mg PO TID PRN PRN Reason: Systolic Blood Pressure Last Admin: 09/11/18 11:56 Dose: 10 mg Iron Sucrose 100 mg/ Sodium (Chloride) 105 mls @ 105 mls/hr IVPB MWF [facility] Stop: 09/22/18 09:59 Last Admin: 09/13/18 10:30 Dose: 105 mls/hr Sevelamer HCl (Renagel) 800 mg PO TID [facility] Last Admin: 09/13/18 12:59 Dose: 800 mg Vitamin B Complex/Vit C/Folic Acid (Nephro-Yuridia) 1 tab PO DAILY [facility] Last Admin: 09/13/18 10:29 Dose: 1 tab - Labs Labs: 09/13/18 06:05 09/13/18 06:05 PT 9.9 Seconds (9.8-13.1) 09/05/18 11:03 INR 0.9 09/05/18 11:03 APTT 50.1 Seconds (25.6-37.1) H 09/05/18 11:03 Attending/Attestation - Attestation I have personally seen and examined this patient.: Yes I have fully participated in the care of the patient.: Yes I have reviewed all pertinent clinical information, including history, physical exam and plan: Yes Notes (Text): 09/13/18 13:35 Seen, examined, and discussed with resident. Agree with findings and plan as above. For renal bx tomorrow as pt recd heparin yesterday and today pt will have HD with heparin. Discussed with IR, no heparin for 24 hours post procedure so will wait until tomorrow for bx. Permacath planned for Tuesday.
[2018-09-13] MEDS ORDERED: Potassium Chloride 20 mEq/15 ml LIQ UD PO ONE (13:23)
--- NOTE | 2018-09-13 13:43 | CP.PCM.PN ---
Subjective - Date & Time of Evaluation Date of Evaluation: 09/13/18 Time of Evaluation: 01:25 - Subjective Subjective: No c/o CP or SOB Appears comfortable Objective - Vital Signs/Intake and Output Vital Signs (last 24 hours): Temp Pulse Resp BP Pulse Ox 97.5 F L 71 20 134/77 100 09/13/18 09:00 09/13/18 08:31 09/13/18 08:31 09/13/18 08:31 09/13/18 08:31 - Medications Medications: Current Medications Amlodipine Besylate (Norvasc) 10 mg PO DAILY [facility] Last Admin: 09/13/18 11:42 Dose: Not Given Atorvastatin Calcium (Lipitor) 20 mg PO DAILY [facility] Last Admin: 09/13/18 10:29 Dose: 20 mg Carvedilol (Coreg) 6.25 mg PO Q12 [facility] Last Admin: 09/13/18 11:42 Dose: Not Given Ergocalciferol (Drisdol 50,000 Intl Units Cap) 1 cap PO Q7D [facility] Stop: 09/29/18 14:01 Last Admin: 09/08/18 16:37 Dose: 1 cap Heparin Sodium (Porcine) (Heparin) 5,000 units SC Q12 [facility]; Protocol Last Admin: 09/13/18 13:33 Dose: 5,000 units Hydralazine HCl (Apresoline) 10 mg PO TID PRN PRN Reason: Systolic Blood Pressure Last Admin: 09/11/18 11:56 Dose: 10 mg Iron Sucrose 100 mg/ Sodium (Chloride) 105 mls @ 105 mls/hr IVPB MWF [facility] Stop: 09/22/18 09:59 Last Admin: 09/13/18 10:30 Dose: 105 mls/hr Sevelamer HCl (Renagel) 800 mg PO TID [facility] Last Admin: 09/13/18 12:59 Dose: 800 mg Vitamin B Complex/Vit C/Folic Acid (Nephro-Yuridia) 1 tab PO DAILY [facility] Last Admin: 09/13/18 10:29 Dose: 1 tab - Labs Labs: 09/13/18 06:05 09/13/18 06:05 PT 9.9 Seconds (9.8-13.1) 09/05/18 11:03 INR 0.9 09/05/18 11:03 APTT 50.1 Seconds (25.6-37.1) H 09/05/18 11:03 - Constitutional Appears: No Acute Distress - Eye Exam Eye Exam: Normal appearance - ENT Exam ENT Exam: Mucous Membranes Moist - Neck Exam Additional comments: No JVD - Respiratory Exam Respiratory Exam: NORMAL BREATHING PATTERN Additional comments: Lungs clear - Cardiovascular Exam Cardiovascular Exam: REGULAR RHYTHM - GI/Abdominal Exam GI & Abdominal Exam: Soft - Extremities Exam Additional comments: No edema or cyanosis Assessment and Plan - Assessment and Plan (Free Text) Assessment: Stage V kidney Dis. Pt remains dialysis dependent SHPT Hb stable HTN Plan: Tolerating dialysis well. BP is controlled On Vit D2 supplementation tunelled dialysis catheter planned for tomorrow.
[2018-09-14 06:38] LABS: HEMOGLOBIN 10.9 g/dL (12.0-18.0); MEAN CELL VOLUME 90.6 fl (80.0-94.0); MEAN CORPUSCULAR HEMOGLOBIN 30.8 pg (27.0-31.0); RBC 3.55 Mil/uL (4.40-5.90); RED CELL DISTRIBUTION WIDTH 13.2 % (11.5-14.5); WHITE BLOOD COUNT 5.5 K/uL (4.8-10.8)
[2018-09-14] MEDS: Multivitamin Vitamin B Complex (Nephro-Vite) Tab PO SCH (09:06)
--- NOTE | 2018-09-14 09:54 | CP.PCM.PN ---
Subjective - Date & Time of Evaluation Date of Evaluation: 09/14/18 Time of Evaluation: 09:45 - Subjective Subjective: Patient seen this AM, NAD, sates feeling well, denies headache, chest pain, SOB, abdominal pain, N/V, fever, chills or other acute medical complain at this time. Objective - Vital Signs/Intake and Output Vital Signs (last 24 hours): Temp Pulse Resp BP Pulse Ox 97.6 F 65 20 147/84 100 09/14/18 08:35 09/14/18 09:06 09/14/18 08:35 09/14/18 09:06 09/14/18 08:35 - Medications Medications: Current Medications Amlodipine Besylate (Norvasc) 10 mg PO DAILY [facility] Last Admin: 09/14/18 09:06 Dose: 10 mg Atorvastatin Calcium (Lipitor) 20 mg PO DAILY [facility] Last Admin: 09/14/18 09:07 Dose: Not Given Carvedilol (Coreg) 6.25 mg PO Q12 [facility] Last Admin: 09/14/18 09:06 Dose: 6.25 mg Ergocalciferol (Drisdol 50,000 Intl Units Cap) 1 cap PO Q7D [facility] Stop: 09/29/18 14:01 Last Admin: 09/08/18 16:37 Dose: 1 cap Hydralazine HCl (Apresoline) 10 mg PO TID PRN PRN Reason: Systolic Blood Pressure Last Admin: 09/11/18 11:56 Dose: 10 mg Iron Sucrose 100 mg/ Sodium (Chloride) 105 mls @ 105 mls/hr IVPB MWF [facility] Stop: 09/22/18 09:59 Last Admin: 09/13/18 10:30 Dose: 105 mls/hr Sevelamer HCl (Renagel) 800 mg PO TID [facility] Last Admin: 09/14/18 09:06 Dose: Not Given Vitamin B Complex/Vit C/Folic Acid (Nephro-Yuridia) 1 tab PO DAILY [facility] Last Admin: 09/14/18 09:06 Dose: Not Given - Labs Labs: 09/14/18 05:45 09/14/18 05:45 PT 9.9 Seconds (9.8-13.1) 09/05/18 11:03 INR 0.9 09/05/18 11:03 APTT 50.1 Seconds (25.6-37.1) H 09/05/18 11:03 - Additional Findings Additional findings: - Constitutional Appears: No Acute Distress - Head Exam Head Exam: ATRAUMATIC, NORMOCEPHALIC - Eye Exam Eye Exam: EOMI - ENT Exam ENT Exam: Mucous Membranes Moist - Neck Exam Neck Exam: Full ROM - Respiratory Exam Respiratory Exam: Clear to Ausculation Bilateral Chest: virgen cath present to Upper right chest side - Cardiovascular Exam Cardiovascular Exam: RRR, +S1, +S2 - GI/Abdominal Exam GI & Abdominal Exam: Soft, Normal Bowel Sounds. absent: Tenderness - Extremities Exam Extremities Exam: Full ROM. absent: Pedal Edema - Neurological Exam Neurological Exam: Alert, Awake, Oriented x3 - Psychiatric Exam Psychiatric exam: Normal Mood - Skin Skin Exam: Pallor, Warm Assessment and Plan - Assessment and Plan (Free Text) Assessment: 32 y/o M with hx of recently diagnosed (April 2018) hypertension, EtOH abuse, admitted for acute renal failure. During admission was found to have elevated troponins as well, but after cardio consult, deemed to be due to uremia and not cardiac in origin; has since [facility] ed. Pt on HD on . Nephrology on board: pt has nephrotic syndrome of unclear etiology unclear at this time. Serologies for SLE, ANCA associated GN & anti GBM are negative. Patient will need a more permanent HD access placement to continue HD. Permcath placement planned for tomorrow 09/15. Plan: 1. Renal failure, uremia, aoztemia - Etiology unknown, likely secondary to underlying renal disease; kidney biopsy is pending, planned for today 09/14. - Hold antiplatelets/anticoagulants (Heparin on hold) for Bx procedure today 09/14 - s/p HD cath placement by IR permacath R upper chest.will need more permanent access planned for 09/15 - Nephrology consulted; serologies for SLE, ANCA associated GN & anti GBM are negative - Renal u/s shows cortical changes, renal disease, renal arteries patent - Sevelamer 800 PO TID, as per Nephro. - Ergocalciferol PO - HD 2. Global ST changes with elevated troponin - Resolved, last trop neg from 09/06 - Cardio consulted; likely secondary to renal impairment rather than cardiac origin - Pt continues to be asymptomatic - Echo: EF 50-55% with global LV strain and LVH; mild to moderate pericardial effusion - C/w B-rebecca: Coreg 6.25 PO Q12h 3. Hypertensive urgency -Resolved -Likely secondary to acute renal failure -currently stable -C/w amlodipine schedule -C/w hydralazine as needed 4. Dyslipidemia -Atorvastatin 20 PO QD 5. Anemia, normocytic - Likely acute on chronic due to acute renal failure - Stable - Iron S 100 mg IVP as per nephro - - F/u CBC in AM 6. Hypokalemia -Resolved -K 4.4 today 7. Hypocalcemia - Resolved - Stable - On Ergocalciferol - F/u BMP 8. DVT prophylaxis - Heparin SC BID on hold for Kidney bx
[2018-09-14] MEDS ORDERED: Lidocaine 1% Inj (20ml) ONE (10:47)
--- NOTE | 2018-09-14 14:04 | PCM.IRP ---
Objective - Vital Signs/Intake and Output Vital Signs (last 24 hours): Vital Signs - 24 hr 09/13/18 09/13/18 09/13/18 16:38 17:00 22:24 Temperature 98.2 F 98.2 F Pulse Rate 66 66 74 Respiratory 18 18 Rate Blood Pressure 130/84 130/84 116/77 O2 Sat by Pulse 99 99 Oximetry 09/14/18 09/14/18 09/14/18 00:42 05:00 08:35 Temperature 98 F 98.7 F 97.6 F Pulse Rate 73 65 Respiratory 19 20 Rate Blood Pressure 119/68 147/84 O2 Sat by Pulse 100 100 Oximetry 09/14/18 09:06 Temperature Pulse Rate 65 Respiratory Rate Blood Pressure 147/84 O2 Sat by Pulse Oximetry - Medications Medications: Current Medications Amlodipine Besylate (Norvasc) 10 mg PO DAILY [facility] Last Admin: 09/14/18 09:06 Dose: 10 mg Atorvastatin Calcium (Lipitor) 20 mg PO DAILY [facility] Last Admin: 09/14/18 09:07 Dose: Not Given Carvedilol (Coreg) 6.25 mg PO Q12 [facility] Last Admin: 09/14/18 09:06 Dose: 6.25 mg Ergocalciferol (Drisdol 50,000 Intl Units Cap) 1 cap PO Q7D [facility] Stop: 09/29/18 14:01 Last Admin: 09/08/18 16:37 Dose: 1 cap Hydralazine HCl (Apresoline) 10 mg PO TID PRN PRN Reason: Systolic Blood Pressure Last Admin: 09/11/18 11:56 Dose: 10 mg Iron Sucrose 100 mg/ Sodium (Chloride) 105 mls @ 105 mls/hr IVPB MWF [facility] Stop: 09/22/18 09:59 Last Admin: 09/13/18 10:30 Dose: 105 mls/hr Sevelamer HCl (Renagel) 800 mg PO TID [facility] Last Admin: 09/14/18 13:25 Dose: Not Given Vitamin B Complex/Vit C/Folic Acid (Nephro-Yuridia) 1 tab PO DAILY [facility] Last Admin: 09/14/18 09:06 Dose: Not Given - Labs Labs (last 24 hours): Laboratory Results - last 24 hr 09/14/18 09/14/18 05:45 05:45 WBC 5.5 RBC 3.55 L Hgb 10.9 L Hct 32.1 L MCV 90.6 MCH 30.8 MCHC 34.0 RDW 13.2 Plt Count 232 Sodium 137 Potassium 4.4 Chloride 102 Carbon Dioxide 25 Anion Gap 14 BUN 27 H Creatinine 6.4 H Est GFR ( Amer) 12 Est GFR (Non-Af Amer) 10 Random Glucose 84 Calcium 9.0 Assessment/Plan - Assessment and Plan (Free Text) Assessment: After extensive discussion with the patient via a japanese interpreter, he did not give consent for the kidney biopsy procedure. The hospitalist team also came to talk to him but the patient did not want the kidney biopsy done. He also expressed the same to the anesthesiologist. The patient was told through a japanese interpreter that not undergoing the biopsy could delay his diagnosis and eventually treatment which could ultimately result in loss of kidney function and further morbidity. Patient did not want the renal biopsy done inspite of this. The procedure was not performed and the hospitalist team (Dr. Hernández) was notified).
[2018-09-15 06:58] LABS: CALCIUM 9.1 mg/dL (8.4-10.2)
--- NOTE | 2018-09-15 09:30 | CP.PCM.PN ---
Subjective - Date & Time of Evaluation Date of Evaluation: 09/15/18 Time of Evaluation: 09:30 - Subjective Subjective: Patient seen today at bed side, NAD, patient states he is agreeing with HD permacath placement by IR scheduled to be done today, denies ACOSTA, chest pain, SOB, abdominal pain, N/V/D, or other acute medical complain. Objective - Vital Signs/Intake and Output Vital Signs (last 24 hours): Temp Pulse Resp BP Pulse Ox 98.0 F 88 20 102/61 98 09/15/18 08:47 09/15/18 08:47 09/15/18 08:47 09/15/18 08:47 09/15/18 08:47 - Medications Medications: Current Medications Amlodipine Besylate (Norvasc) 10 mg PO DAILY [facility] Last Admin: 09/14/18 09:06 Dose: 10 mg Atorvastatin Calcium (Lipitor) 20 mg PO DAILY [facility] Last Admin: 09/14/18 09:07 Dose: Not Given Carvedilol (Coreg) 6.25 mg PO Q12 [facility] Last Admin: 09/14/18 21:50 Dose: 6.25 mg Ergocalciferol (Drisdol 50,000 Intl Units Cap) 1 cap PO Q7D [facility] Stop: 09/29/18 14:01 Last Admin: 09/08/18 16:37 Dose: 1 cap Hydralazine HCl (Apresoline) 10 mg PO TID PRN PRN Reason: Systolic Blood Pressure Last Admin: 09/11/18 11:56 Dose: 10 mg Iron Sucrose 100 mg/ Sodium (Chloride) 105 mls @ 105 mls/hr IVPB MWF [facility] Stop: 09/22/18 09:59 Last Admin: 09/13/18 10:30 Dose: 105 mls/hr Sevelamer HCl (Renagel) 800 mg PO TID [facility] Last Admin: 09/14/18 17:49 Dose: 800 mg Vitamin B Complex/Vit C/Folic Acid (Nephro-Yuridia) 1 tab PO DAILY [facility] Last Admin: 09/14/18 09:06 Dose: Not Given - Labs Labs: 09/14/18 05:45 09/15/18 05:20 PT 9.9 Seconds (9.8-13.1) 09/05/18 11:03 INR 0.9 09/05/18 11:03 APTT 50.1 Seconds (25.6-37.1) H 09/05/18 11:03 - Constitutional Appears: No Acute Distress - Head Exam Head Exam: ATRAUMATIC, NORMOCEPHALIC - Eye Exam Eye Exam: EOMI, PERRL - ENT Exam ENT Exam: Mucous Membranes Moist - Neck Exam Neck Exam: Full ROM - Respiratory Exam Respiratory Exam: Clear to Ausculation Bilateral - Cardiovascular Exam Cardiovascular Exam: RRR, +S1, +S2 - GI/Abdominal Exam GI & Abdominal Exam: Soft, Normal Bowel Sounds. absent: Tenderness - Extremities Exam Extremities Exam: Full ROM. absent: Pedal Edema - Neurological Exam Neurological Exam: Alert, Awake, Oriented x3 - Psychiatric Exam Psychiatric exam: Normal Mood - Skin Skin Exam: Normal Color, Warm Assessment and Plan - Assessment and Plan (Free Text) Assessment: 32 y/o M with hx of recently diagnosed (April 2018) hypertension, EtOH abuse, admitted for acute renal failure. During admission was found to have elevated troponins as well, but after cardio consult, deemed to be due to uremia and not cardiac in origin; has since resolved. Pt on HD on . Nephrology on board: pt has nephrotic syndrome of unclear etiology unclear at this time. Serologies for SLE, ANCA associated GN & anti GBM are negative. Patient will need a more permanent HD access placement to continue HD, which is planned to be done done today by IR. Plan: 1. Renal failure, uremia, aoztemia - Etiology unknown, likely secondary to underlying renal disease; kidney biopsy was scheduled for yesterday 09/14, but patient refused the procedure, even after Patient was explained in [place] and simple words the importance of this procedure for diagnosis purposes and for guiding management and treatment. - Hold antiplatelets/anticoagulants (Heparin on hold) for premacath placement. - s/p HD cath placement by IR permacath R upper chest.will need more permanent access planned for 09/15 - Nephrology consulted; serologies for SLE, ANCA associated GN & anti GBM are negative - Renal u/s shows cortical changes, renal disease, renal arteries patent - Sevelamer 800 PO TID, as per Nephro. - Ergocalciferol PO - HD 2. Global ST changes with elevated troponin - Resolved, last trop neg from 09/06 - Cardio consulted; likely secondary to renal impairment rather than cardiac origin - Pt continues to be asymptomatic - Echo: EF 50-55% with global LV strain and LVH; mild to moderate pericardial effusion - C/w B-rebecca: Coreg 6.25 PO Q12h 3. Hypertensive urgency -Resolved -Likely secondary to acute renal failure -currently stable -C/w amlodipine schedule -C/w hydralazine as needed 4. Dyslipidemia -Atorvastatin 20 PO QD 5. Anemia, normocytic - Likely secondary to CKD - Stable - Iron S 100 mg IVP as per nephro - - F/u CBC in AM 6. Hypokalemia -Resolved -K 4.4 today 7. Hypocalcemia - Resolved - Stable - On Ergocalciferol - F/u BMP 8. DVT prophylaxis - Heparin SC BID on hold for IR procedure
[2018-09-15] MEDS: Multivitamin Vitamin B Complex (Nephro-Vite) Tab PO SCH (09:51)
--- NOTE | 2018-09-15 13:16 | CP.PCM.CON ---
History of Present Illness - History of Present Illness History of Present Illness: consult is requested in reference to capacity to make decision for hemodyalsis and permacath placement by IR pt is a 32ys old male , no previous psychiatric diagnosis or treatment , pt has hx of high blood pressure, on admission was found to have acute renal failure and to need hemodyalsis , pt has been refusing to get the dialysios pt on evaluation, oriented to person, place and time explained to patient why dialysis is currently needed, risks versus benefits of obtaining it pt was able to retain information and able to verbalize possible nature of current diagnosis, the possible benefits of having hemodyalsis risks of not having it done , pt continues to decline having the treatment as he is would like to have confirmation of his diagnosis Past Patient History - Past Medical History & Family History Past Medical History?: No - Past Social History Smoking Status: Current Some Days Smoker - CARDIAC Hx Cardiac Disorders: No - PULMONARY Hx Respiratory Disorders: No - NEUROLOGICAL Hx Neurological Disorder: No - HEENT Hx HEENT Problems: No - RENAL Hx Chronic Kidney Disease: No - ENDOCRINE/METABOLIC Hx Endocrine Disorders: No - HEMATOLOGICAL/ONCOLOGICAL Hx AIDS: No Hx Human Immunodeficiency Virus (HIV): No - INTEGUMENTARY Hx Dermatological Problems: No - MUSCULOSKELETAL/RHEUMATOLOGICAL Hx Falls: No - GENITOURINARY/GYNECOLOGICAL Hx Genitourinary Disorders: No - PSYCHIATRIC Hx Substance Use: No - SURGICAL HISTORY Hx Surgeries: Yes Other/Comment: Head surgery secondary to trauma 8 months ago - ANESTHESIA Hx Anesthesia: Yes Hx Anesthesia Reactions: No Hx Malignant Hyperthermia: No Has any member of the family had a problem w/ anesthesia?: No Meds Allergies/Adverse Reactions: Allergies Allergy/AdvReac Type Severity Reaction Status Date / Time No Known Allergies Allergy Verified 09/05/18 00:02 - Medications Medications: Current Medications Amlodipine Besylate (Norvasc) 10 mg PO DAILY [facility] Last Admin: 09/15/18 11:02 Dose: Not Given Atorvastatin Calcium (Lipitor) 20 mg PO DAILY [facility] Last Admin: 09/15/18 09:51 Dose: 20 mg Carvedilol (Coreg) 6.25 mg PO Q12 [facility] Last Admin: 09/15/18 11:02 Dose: Not Given Ergocalciferol (Drisdol 50,000 Intl Units Cap) 1 cap PO Q7D [facility] Stop: 09/29/18 14:01 Last Admin: 09/08/18 16:37 Dose: 1 cap Hydralazine HCl (Apresoline) 10 mg PO TID PRN PRN Reason: Systolic Blood Pressure Last Admin: 09/11/18 11:56 Dose: 10 mg Iron Sucrose 100 mg/ Sodium (Chloride) 105 mls @ 105 mls/hr IVPB MWF [facility] Stop: 09/22/18 09:59 Last Admin: 09/13/18 10:30 Dose: 105 mls/hr Sevelamer HCl (Renagel) 800 mg PO TID [facility] Last Admin: 09/15/18 09:52 Dose: 800 mg Vitamin B Complex/Vit C/Folic Acid (Nephro-Yuridia) 1 tab PO DAILY [facility] Last Admin: 09/15/18 09:51 Dose: 1 tab Physical Exam - Psychiatric Exam Additional comments: pt seen on a chair, cooperative , good eye contact, speech normal, thought form coherent , mood upset, affect appropriate, denied any current suicidal or homicidal ideation denied perceptual disturbances, non eleicited, alert awake oriented x3 Results - Vital Signs Recent Vital Signs: Last Vital Signs Temp 98.0 F 09/15/18 08:47 Pulse 88 09/15/18 08:47 Resp 20 09/15/18 08:47 BP 102/61 09/15/18 08:47 Pulse Ox 98 09/15/18 08:47 - Labs Result Diagrams: 09/14/18 05:45 09/15/18 05:20 Labs: Laboratory Results - last 24 hr 09/15/18 05:20 Sodium 136 Potassium 4.4 Chloride 104 Carbon Dioxide 23 Anion Gap 13 BUN 37 H Creatinine 8.8 H* D Est GFR ( Amer) 8 Est GFR (Non-Af Amer) 7 Random Glucose 84 Calcium 9.1 Assessment & Plan - Assessment and Plan (Free Text) Assessment: no diagnosis or condition on axis I Plan: pt at current mental status has the capacity to make the decision in reference to medical treatment
--- NOTE | 2018-09-15 15:07 | CP.PCM.PN ---
Subjective - Date & Time of Evaluation Date of Evaluation: 09/15/18 Time of Evaluation: 02:45 - Subjective Subjective: Appears comfortable supine Wants to go home. No other complaints Objective - Vital Signs/Intake and Output Vital Signs (last 24 hours): Temp Pulse Resp BP Pulse Ox 98.0 F 88 20 102/61 98 09/15/18 08:47 09/15/18 08:47 09/15/18 08:47 09/15/18 08:47 09/15/18 08:47 - Medications Medications: Current Medications Amlodipine Besylate (Norvasc) 10 mg PO DAILY [facility] Last Admin: 09/15/18 11:02 Dose: Not Given Atorvastatin Calcium (Lipitor) 20 mg PO DAILY [facility] Last Admin: 09/15/18 09:51 Dose: 20 mg Carvedilol (Coreg) 6.25 mg PO Q12 [facility] Last Admin: 09/15/18 11:02 Dose: Not Given Ergocalciferol (Drisdol 50,000 Intl Units Cap) 1 cap PO Q7D [facility] Stop: 09/29/18 14:01 Last Admin: 09/08/18 16:37 Dose: 1 cap Hydralazine HCl (Apresoline) 10 mg PO TID PRN PRN Reason: Systolic Blood Pressure Last Admin: 09/11/18 11:56 Dose: 10 mg Iron Sucrose 100 mg/ Sodium (Chloride) 105 mls @ 105 mls/hr IVPB MWF [facility] Stop: 09/22/18 09:59 Last Admin: 09/13/18 10:30 Dose: 105 mls/hr Sevelamer HCl (Renagel) 800 mg PO TID [facility] Last Admin: 09/15/18 13:34 Dose: 800 mg Vitamin B Complex/Vit C/Folic Acid (Nephro-Yuridia) 1 tab PO DAILY [facility] Last Admin: 09/15/18 09:51 Dose: 1 tab - Labs Labs: 09/14/18 05:45 09/15/18 05:20 PT 9.9 Seconds (9.8-13.1) 09/05/18 11:03 INR 0.9 09/05/18 11:03 APTT 50.1 Seconds (25.6-37.1) H 09/05/18 11:03 - Constitutional Appears: No Acute Distress - Head Exam Head Exam: NORMAL INSPECTION - Eye Exam Eye Exam: Normal appearance - ENT Exam ENT Exam: Mucous Membranes Moist - Respiratory Exam Respiratory Exam: NORMAL BREATHING PATTERN Additional comments: Lungs clear - Cardiovascular Exam Cardiovascular Exam: REGULAR RHYTHM Additional comments: No rub - GI/Abdominal Exam GI & Abdominal Exam: Soft - Extremities Exam Additional comments: No edema Assessment and Plan - Assessment and Plan (Free Text) Assessment: ESRD on HD Tolerating dialysis HTN Blood pressures are low. Suggest to hold hydralazine Anemia. Hb is stable Plan: Scheduled for dialysis today Placement of perm catheter on Tue Pt had refused kidney Bx.
[2018-09-15] MEDS: Ergocalciferol 50,000 Intl Units Cap PO SCH (17:32)
[2018-09-16 08:04] LABS: CALCIUM 9.4 mg/dL (8.4-10.2)
[2018-09-16] MEDS: Multivitamin Vitamin B Complex (Nephro-Vite) Tab PO SCH (08:43)
[2018-09-16 08:44] VITALS: BP 124/76; PULSE 98
--- NOTE | 2018-09-16 09:30 | CP.PCM.DIS ---
<Angelo,Josefa - Last Filed: 09/16/18 10:40> Provider - Provider Date of Admission: 09/05/18 01:06 Attending physician: Fadi Baca MD Time Spent in preparation of Discharge (in minutes): 35 Diagnosis - Discharge Diagnosis (1) MADAI (acute kidney injury) Status: Acute (2) ESRD (end stage renal disease) Status: Acute Hospital Course - Lab Results Lab Results: Micro Results 09/06/18 07:52 Naris MRSA Culture (Admit) - Final MRSA NOT DETECTED 09/05/18 21:17 Naris MRSA Culture (Admit) - Final MRSA NOT DETECTED 09/05/18 15:40 Naris MRSA Culture (Admit) - Final MRSA NOT DETECTED Most Recent Lab Values WBC 5.5 K/uL (4.8-10.8) 09/14/18 05:45 RBC 3.55 Mil/uL (4.40-5.90) L 09/14/18 05:45 Hgb 10.9 g/dL (12.0-18.0) L 09/14/18 05:45 Hct 32.1 % (35.0-51.0) L 09/14/18 05:45 MCV 90.6 fl (80.0-94.0) 09/14/18 05:45 MCH 30.8 pg (27.0-31.0) 09/14/18 05:45 MCHC 34.0 g/dL (33.0-37.0) 09/14/18 05:45 RDW 13.2 % (11.5-14.5) 09/14/18 05:45 Plt Count 232 K/uL (130-400) 09/14/18 05:45 MPV 8.7 fl (7.2-11.7) 09/08/18 05:45 Neut % (Auto) 57.5 % (50.0-75.0) 09/08/18 05:45 Lymph % (Auto) 24.2 % (20.0-40.0) 09/08/18 05:45 [place] % (Auto) 12.6 % (0.0-10.0) H 09/08/18 05:45 Eos % (Auto) 4.8 % (0.0-4.0) H 09/08/18 05:45 Baso % (Auto) 0.9 % (0.0-2.0) 09/08/18 05:45 Neut # (Auto) 2.5 K/uL (1.8-7.0) 09/08/18 05:45 Lymph # (Auto) 1.0 K/uL (1.0-4.3) 09/08/18 05:45 [place] # (Auto) 0.5 K/uL (0.0-0.8) 09/08/18 05:45 Eos # (Auto) 0.2 K/uL (0.0-0.7) 09/08/18 05:45 Baso # (Auto) 0.0 K/uL (0.0-0.2) 09/08/18 05:45 ESR 63 mm/hr (0-15) H 09/06/18 09:27 PT 9.9 Seconds (9.8-13.1) 09/05/18 11:03 INR 0.9 09/05/18 11:03 APTT 50.1 Seconds (25.6-37.1) H 09/05/18 11:03 Sodium 137 mmol/l (132-148) 09/16/18 05:30 Potassium 4.5 MMOL/L (3.6-5.0) 09/16/18 05:30 Chloride 100 mmol/L (98-107) 09/16/18 05:30 Carbon Dioxide 25 mmol/L (22-30) 09/16/18 05:30 Anion Gap 17 (10-20) 09/16/18 05:30 BUN 28 mg/dl (9-20) H 09/16/18 05:30 Creatinine 7.8 mg/dl (0.8-1.5) H* 09/16/18 05:30 Est GFR ( Amer) 10 09/16/18 05:30 Est GFR (Non-Af Amer) 8 09/16/18 05:30 Random Glucose 91 mg/dL (75-110) 09/16/18 05:30 Hemoglobin A1c 4.9 % (4.2-6.5) 09/06/18 04:40 Serum Osmolality 316 mosm/kg (272-300) H 09/05/18 01:58 Calcium 9.4 mg/dL (8.4-10.2) 09/16/18 05:30 Phosphorus 5.4 mg/dl (2.5-4.5) H 09/08/18 05:45 Magnesium 2.1 MG/DL (1.6-2.3) 09/08/18 05:45 Iron 35 ug/dL (49-181) L 09/07/18 06:20 TIBC 229 ug/dL (250-450) L 09/07/18 06:20 % Saturation 15 % (20-55) L 09/07/18 06:20 Ferritin 49.4 ng/Ml (17.9-464) 09/07/18 05:45 Total Bilirubin 0.2 mg/dl (0.2-1.3) 09/13/18 06:05 AST 27 U/L (17-59) 09/13/18 06:05 ALT 28 U/L (21-72) 09/13/18 06:05 Alkaline Phosphatase 65 U/L (38-126) 09/13/18 06:05 Total Creatine Kinase 328 U/L (55-170) H 09/05/18 06:54 Troponin I 0.1010 ng/mL (0.00-0.120) 09/06/18 14:35 C-React Prot High Sens 1.48 mg/L (1.00-3.00) 09/06/18 09:27 Total Protein 6.0 G/DL (6.3-8.2) L 09/13/18 06:05 Albumin 3.2 g/dL (3.5-5.0) L 09/13/18 06:05 Globulin 2.8 gm/dL (2.2-3.9) 09/13/18 06:05 Albumin/Globulin Ratio 1.1 (1.0-2.1) 09/13/18 06:05 Triglycerides 184 mg/DL (0-149) H 09/05/18 04:40 Cholesterol 245 mg/dL (0-199) H 09/05/18 04:40 LDL Cholesterol Direct 137 mg/dL (0-129) H 09/05/18 04:40 HDL Cholesterol 66 MG/DL (30-70) 09/05/18 04:40 Renin 1.59 ng/mL/h (0.25-5.82) 09/08/18 05:45 Aldosterone 5 ng/dL 09/08/18 05:45 Aldosterone/Renin Ratio 3.1 Ratio (0.9-28.9) 09/08/18 05:45 25-OH Vitamin D Total < 12.8 NG/ML (30.0-100.0) L 09/08/18 05:45 TSH 3rd Generation 4.60 mIU/ML (0.46-4.68) 09/05/18 05:30 PTH Intact Whole Molec 320 pg/mL (14-64) H 09/07/18 13:57 Plasma Metanephrine 43 pg/mL (<=57) 09/05/18 06:54 Plasma Normetanephrine 517 pg/mL (<=148) H 09/05/18 06:54 Plas Total Metaneph 560 pg/mL (<=205) H 09/05/18 06:54 Urine Color Straw (YELLOW) 09/05/18 01:58 Urine Clarity Clear (Clear) 09/05/18 01:58 Urine pH 7.0 (5.0-8.0) 09/05/18 01:58 Ur Specific Viola 1.008 (1.003-1.030) 09/05/18 01:58 Urine Protein >=500 mg/dL (NEGATIVE) 09/05/18 01:58 Urine Glucose (UA) 50 mg/dL (Normal) 09/05/18 01:58 Urine Ketones Negative mg/dL (NEGATIVE) 09/05/18 01:58 Urine Blood Small (NEGATIVE) 09/05/18 01:58 Urine Nitrate Negative (NEGATIVE) 09/05/18 01:58 Urine Bilirubin Negative (NEGATIVE) 09/05/18 01:58 Urine Urobilinogen 0.2-1.0 mg/dL (0.2-1.0) 09/05/18 01:58 Ur Leukocyte Esterase Neg Juanita/uL (Negative) 09/05/18 01:58 Urine RBC (Auto) 15 /hpf (0-3) H 09/05/18 01:58 Urine Microscopic WBC 13 /hpf (0-5) H 09/05/18 01:58 Ur Squamous Epith Cells 6 /hpf (0-5) H 09/05/18 01:58 Urine Osmolality 260 mosm/kg (300-1000) L 09/05/18 01:58 Ur Random Creatinine 12 mg/dL (20-320) L 09/06/18 07:00 Ur Random Sodium 51 meq/L 09/05/18 01:58 Ur Random Potassium 20.7 mmol/L 09/05/18 01:58 Urine Collection Time 24 HRS 09/07/18 07:30 Urine Total Volume 1700 mL 09/07/18 07:30 VMA/Creatinine Ratio 16.7 mg/g creat (1.1-4.1) H 09/06/18 07:00 Ur Protein 24 Hr Calc 7480.0 mg/24hr (42-225) H 09/07/18 07:30 Urine Opiates Screen Negative (NEGATIVE) 09/05/18 01:58 Urine Methadone Screen Negative (NEGATIVE) 09/05/18 01:58 Ur Barbiturates Screen Negative (NEGATIVE) 09/05/18 01:58 Ur Phencyclidine Scrn Negative (NEGATIVE) 09/05/18 01:58 Ur Amphetamines Screen Negative (NEGATIVE) 09/05/18 01:58 U Benzodiazepines Scrn Negative (NEGATIVE) 09/05/18 01:58 U Oth Cocaine Metabols Negative (NEGATIVE) 09/05/18 01:58 U Cannabinoids Screen Negative (NEGATIVE) 09/05/18 01:58 Alcohol, Quantitative < 10 mg/dl (0-10) 09/05/18 00:30 HARRY Screen Negative (Negative) 09/05/18 16:27 HARRY Titer TEST NOT PERFORMED 09/05/18 04:40 HARRY Titer 2 TEST NOT PERFORMED 09/05/18 04:40 HARRY Pattern TEST NOT PERFORMED 09/05/18 04:40 HARRY Pattern 2 TEST NOT PERFORMED 09/05/18 04:40 ANCA Screen Negative (NEGATIVE) 09/05/18 16:27 c-ANCA Titer TNP 09/05/18 16:27 Proteinase 3 (PR3) <1.0 AI (<1.0) 09/05/18 16:27 p-ANCA Titer TNP 09/05/18 16:27 Atypical p-ANCA Titer TNP 09/05/18 16:27 Myeloperoxidase Ab <1.0 AI (<1.0) 09/05/18 16:27 Double Strand DNA Ab 1 IU/mL 09/05/18 16:27 Glomerular Base Mem IgG <1.0 AI (<1.0) 09/05/18 16:27 Complement C3 77.0 mg/dL (88.0-165.0) L 09/05/18 14:00 Complement C4 34.2 mg/dL (14.0-44.0) 09/05/18 14:00 Tot Complement (CH50) >60 U/mL (31-60) H 09/05/18 16:27 RPR Nonreactive (NONREACTIVE) 09/06/18 14:35 Hep Bs Antigen Negative (NEGATIVE) 09/05/18 16:27 Hep Bs Antibody Negative (NEGATIVE) 09/05/18 16:27 Hep B Core IgM Ab Negative (NEGATIVE) 09/05/18 16:27 Hepatitis C Antibody Negative (NEGATIVE) 09/05/18 16:27 HIV 1&2 Ag/Ab, 4th Gen Nonreactive (Nonreactive) 09/06/18 14:35 - Hospital Course Hospital Course: Pt is a 32 y/o male with hx of uncontrolled HTN who presented to [facility] on 09/05/18 with complaints of generalized malaise and patient was found to be in acute renal failure, severe hypertension, elevated troponin. He was admitted to ICU where he received emergent dialysis. Nephrology was consulted and workup was sent for evaluation of underlying kidney disease. Pt refused kidney biopsy. Pt's blood pressure stabilized after a series of HD sessions and eventually is was taking of all antihypertensive agents. Cardiology evaluated patient for tropinemia and ruled out acute coronary syndrome. He had a shiley cath put in during his admission. 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 He was advised to get a permacath for subsequent HD sessions outpatient for ESRD but patient refused. On day 11 of admission, pt signed out against medical advise. I spoke extensively with the patient, face to face 20minute, discussing his declining kidney function and the likely sequele of kidney failure including if he were to refuse further treatment and he verbalized understanding but opted to sign out. The patient was also evaluated by psychiatry to assess mental capacity and deemed by Dr. Smith that he has capacity to make medical decisions. I removed pt's shiley cath prior to discharge. Pt tolerated well. No signs of infection, no bleeding. Discharge Exam - Head Exam Head Exam: NORMAL INSPECTION - Eye Exam Eye Exam: Normal appearance - ENT Exam ENT Exam: Mucous Membranes Moist - Neck Exam Neck exam: Normal Inspection (shiley removed, no bleeding.) - Respiratory Exam Respiratory Exam: Clear to PA & Lateral - Cardiovascular Exam Cardiovascular Exam: REGULAR RHYTHM, +S1, +S2 - GI/Abdominal Exam GI & Abdominal Exam: Normal Bowel Sounds, Soft. absent: Tenderness - Extremities Exam Extremities exam: normal capillary refill, normal inspection, pedal pulses present - Neurological Exam Neurological exam: Alert, Normal Gait, Oriented x3 Discharge Plan - Follow Up Plan Condition: FAIR Disposition: AGAINST MEDICAL ADVICE Instructions: High Blood Pressure in Adults, Hemodialysis (DC), Dialysis Catheter (DC), Dialysis and Diet Additional Instructions: follow up with primary MD 1 week Referrals: Indy Perdomo MD [Staff Provider] - Homero Camejo MD [Staff Provider] - <Eden Mai - Last Filed: 09/16/18 15:57> Provider - Provider Date of Admission: 09/05/18 01:06 Attending physician: Fadi Baca MD Hospital Course - Lab Results Lab Results: Micro Results 09/06/18 07:52 Naris MRSA Culture (Admit) - Final MRSA NOT DETECTED 09/05/18 21:17 Naris MRSA Culture (Admit) - Final MRSA NOT DETECTED 09/05/18 15:40 Naris MRSA Culture (Admit) - Final MRSA NOT DETECTED Most Recent Lab Values WBC 5.5 K/uL (4.8-10.8) 09/14/18 05:45 RBC 3.55 Mil/uL (4.40-5.90) L 09/14/18 05:45 Hgb 10.9 g/dL (12.0-18.0) L 09/14/18 05:45 Hct 32.1 % (35.0-51.0) L 09/14/18 05:45 MCV 90.6 fl (80.0-94.0) 09/14/18 05:45 MCH 30.8 pg (27.0-31.0) 09/14/18 05:45 MCHC 34.0 g/dL (33.0-37.0) 09/14/18 05:45 RDW 13.2 % (11.5-14.5) 09/14/18 05:45 Plt Count 232 K/uL (130-400) 09/14/18 05:45 MPV 8.7 fl (7.2-11.7) 09/08/18 05:45 Neut % (Auto) 57.5 % (50.0-75.0) 09/08/18 05:45 Lymph % (Auto) 24.2 % (20.0-40.0) 09/08/18 05:45 [place] % (Auto) 12.6 % (0.0-10.0) H 09/08/18 05:45 Eos % (Auto) 4.8 % (0.0-4.0) H 09/08/18 05:45 Baso % (Auto) 0.9 % (0.0-2.0) 09/08/18 05:45 Neut # (Auto) 2.5 K/uL (1.8-7.0) 09/08/18 05:45 Lymph # (Auto) 1.0 K/uL (1.0-4.3) 09/08/18 05:45 [place] # (Auto) 0.5 K/uL (0.0-0.8) 09/08/18 05:45 Eos # (Auto) 0.2 K/uL (0.0-0.7) 09/08/18 05:45 Baso # (Auto) 0.0 K/uL (0.0-0.2) 09/08/18 05:45 ESR 63 mm/hr (0-15) H 09/06/18 09:27 PT 9.9 Seconds (9.8-13.1) 09/05/18 11:03 INR 0.9 09/05/18 11:03 APTT 50.1 Seconds (25.6-37.1) H 09/05/18 11:03 Sodium 137 mmol/l (132-148) 09/16/18 05:30 Potassium 4.5 MMOL/L (3.6-5.0) 09/16/18 05:30 Chloride 100 mmol/L (98-107) 09/16/18 05:30 Carbon Dioxide 25 mmol/L (22-30) 09/16/18 05:30 Anion Gap 17 (10-20) 09/16/18 05:30 BUN 28 mg/dl (9-20) H 09/16/18 05:30 Creatinine 7.8 mg/dl (0.8-1.5) H* 09/16/18 05:30 Est GFR ( Amer) 10 09/16/18 05:30 Est GFR (Non-Af Amer) 8 09/16/18 05:30 Random Glucose 91 mg/dL (75-110) 09/16/18 05:30 Hemoglobin A1c 4.9 % (4.2-6.5) 09/06/18 04:40 Serum Osmolality 316 mosm/kg (272-300) H 09/05/18 01:58 Calcium 9.4 mg/dL (8.4-10.2) 09/16/18 05:30 Phosphorus 5.4 mg/dl (2.5-4.5) H 09/08/18 05:45 Magnesium 2.1 MG/DL (1.6-2.3) 09/08/18 05:45 Iron 35 ug/dL (49-181) L 09/07/18 06:20 TIBC 229 ug/dL (250-450) L 09/07/18 06:20 % Saturation 15 % (20-55) L 09/07/18 06:20 Ferritin 49.4 ng/Ml (17.9-464) 09/07/18 05:45 Total Bilirubin 0.2 mg/dl (0.2-1.3) 09/13/18 06:05 AST 27 U/L (17-59) 09/13/18 06:05 ALT 28 U/L (21-72) 09/13/18 06:05 Alkaline Phosphatase 65 U/L (38-126) 09/13/18 06:05 Total Creatine Kinase 328 U/L (55-170) H 09/05/18 06:54 Troponin I 0.1010 ng/mL (0.00-0.120) 09/06/18 14:35 C-React Prot High Sens 1.48 mg/L (1.00-3.00) 09/06/18 09:27 Total Protein 6.0 G/DL (6.3-8.2) L 09/13/18 06:05 Albumin 3.2 g/dL (3.5-5.0) L 09/13/18 06:05 Globulin 2.8 gm/dL (2.2-3.9) 09/13/18 06:05 Albumin/Globulin Ratio 1.1 (1.0-2.1) 09/13/18 06:05 Triglycerides 184 mg/DL (0-149) H 09/05/18 04:40 Cholesterol 245 mg/dL (0-199) H 09/05/18 04:40 LDL Cholesterol Direct 137 mg/dL (0-129) H 09/05/18 04:40 HDL Cholesterol 66 MG/DL (30-70) 09/05/18 04:40 Renin 1.59 ng/mL/h (0.25-5.82) 09/08/18 05:45 Aldosterone 5 ng/dL 09/08/18 05:45 Aldosterone/Renin Ratio 3.1 Ratio (0.9-28.9) 09/08/18 05:45 25-OH Vitamin D Total < 12.8 NG/ML (30.0-100.0) L 09/08/18 05:45 TSH 3rd Generation 4.60 mIU/ML (0.46-4.68) 09/05/18 05:30 PTH Intact Whole Molec 320 pg/mL (14-64) H 09/07/18 13:57 Plasma Metanephrine 43 pg/mL (<=57) 09/05/18 06:54 Plasma Normetanephrine 517 pg/mL (<=148) H 09/05/18 06:54 Plas Total Metaneph 560 pg/mL (<=205) H 09/05/18 06:54 Urine Color Straw (YELLOW) 09/05/18 01:58 Urine Clarity Clear (Clear) 09/05/18 01:58 Urine pH 7.0 (5.0-8.0) 09/05/18 01:58 Ur Specific [place] 1.008 (1.003-1.030) 09/05/18 01:58 Urine Protein >=500 mg/dL (NEGATIVE) 09/05/18 01:58 Urine Glucose (UA) 50 mg/dL (Normal) 09/05/18 01:58 Urine Ketones Negative mg/dL (NEGATIVE) 09/05/18 01:58 Urine Blood Small (NEGATIVE) 09/05/18 01:58 Urine Nitrate Negative (NEGATIVE) 09/05/18 01:58 Urine Bilirubin Negative (NEGATIVE) 09/05/18 01:58 Urine Urobilinogen 0.2-1.0 mg/dL (0.2-1.0) 09/05/18 01:58 Ur Leukocyte Esterase Neg Juanita/uL (Negative) 09/05/18 01:58 Urine RBC (Auto) 15 /hpf (0-3) H 09/05/18 01:58 Urine Microscopic WBC 13 /hpf (0-5) H 09/05/18 01:58 Ur Squamous Epith Cells 6 /hpf (0-5) H 09/05/18 01:58 Urine Osmolality 260 mosm/kg (300-1000) L 09/05/18 01:58 Ur Random Creatinine 12 mg/dL (20-320) L 09/06/18 07:00 Ur Random Sodium 51 meq/L 09/05/18 01:58 Ur Random Potassium 20.7 mmol/L 09/05/18 01:58 Urine Collection Time 24 HRS 09/07/18 07:30 Urine Total Volume 1700 mL 09/07/18 07:30 VMA/Creatinine Ratio 16.7 mg/g creat (1.1-4.1) H 09/06/18 07:00 Ur Protein 24 Hr Calc 7480.0 mg/24hr (42-225) H 09/07/18 07:30 Urine Opiates Screen Negative (NEGATIVE) 09/05/18 01:58 Urine Methadone Screen Negative (NEGATIVE) 09/05/18 01:58 Ur Barbiturates Screen Negative (NEGATIVE) 09/05/18 01:58 Ur Phencyclidine Scrn Negative (NEGATIVE) 09/05/18 01:58 Ur Amphetamines Screen Negative (NEGATIVE) 09/05/18 01:58 U Benzodiazepines Scrn Negative (NEGATIVE) 09/05/18 01:58 U Oth Cocaine Metabols Negative (NEGATIVE) 09/05/18 01:58 U Cannabinoids Screen Negative (NEGATIVE) 09/05/18 01:58 Alcohol, Quantitative < 10 mg/dl (0-10) 09/05/18 00:30 HARRY Screen Negative (Negative) 09/05/18 16:27 HARRY Titer TEST NOT PERFORMED 09/05/18 04:40 HARRY Titer 2 TEST NOT PERFORMED 09/05/18 04:40 HARRY Pattern TEST NOT PERFORMED 09/05/18 04:40 HARRY Pattern 2 TEST NOT PERFORMED 09/05/18 04:40 ANCA Screen Negative (NEGATIVE) 09/05/18 16:27 c-ANCA Titer TNP 09/05/18 16:27 Proteinase 3 (PR3) <1.0 AI (<1.0) 09/05/18 16:27 p-ANCA Titer TNP 09/05/18 16:27 Atypical p-ANCA Titer TNP 09/05/18 16:27 Myeloperoxidase Ab <1.0 AI (<1.0) 09/05/18 16: Double Strand DNA Ab 1 IU/mL 09/05/18 16:27 Glomerular Base Mem IgG <1.0 AI (<1.0) 09/05/18 16:27 Complement C3 77.0 mg/dL (88.0-165.0) L 09/05/18 14:00 Complement C4 34.2 mg/dL (14.0-44.0) 09/05/18 14:00 Tot Complement (CH50) >60 U/mL (31-60) H 09/05/18 16:27 RPR Nonreactive (NONREACTIVE) 09/06/18 14:35 Hep Bs Antigen Negative (NEGATIVE) 09/05/18 16:27 Hep Bs Antibody Negative (NEGATIVE) 09/05/18 16:27 Hep B Core IgM Ab Negative (NEGATIVE) 09/05/18 16:27 Hepatitis C Antibody Negative (NEGATIVE) 09/05/18 16:27 HIV 1&2 Ag/Ab, 4th Gen Nonreactive (Nonreactive) 09/06/18 14:35 Attending/Attestation - Attestation I have fully participated in the care of the patient.: Yes I have reviewed all pertinent clinical information, including history, physical exam and plan: Yes Notes (Text): Pt was seen and examined by resident today. Temporary dialysis catheter removed. He had wanted to leave against medical advice since yesterday and evaluated by Psych and was deemed to have capacity however agreed to stay afetr dialysis as he was feeling weak. Today he signed AMA, refused to even stay for a few minutes so i could see him.
[2018-09-16 10:26] VITALS: RESP 19; TEMP 98; O2SAT 98
== END 2018-09-16 10:04 | disposition left against medical advice (07) | DRG 469 ==
LOC: H.ER 23:58 → H.ERHOLD 09-05 01:06 → H.ICU/CCU 09-05 11:37 → H.MEDSURG1 09-07 00:30
PROVIDERS: ADMIT Internal Medicine; ATTEND Internal Medicine
PROC: 05HM33Z Insertion of Infusion Device into Right Internal Jugular Vein, Percutaneous Approach (ICD-10-PCS; principal; 2018-09-05)
PROC: B513ZZA Fluoroscopy of Right Jugular Veins, Guidance (ICD-10-PCS; 2018-09-05)
PROC: 5A1D70Z Performance of Urinary Filtration, Intermittent, Less than 6 Hours Per Day (ICD-10-PCS; 2018-09-05)
PROC: 3E02340 Introduction of Influenza Vaccine into Muscle, Percutaneous Approach (ICD-10-PCS; 2018-09-05)
PROC: 3E0234Z Introduction of Serum, Toxoid and Vaccine into Muscle, Percutaneous Approach (ICD-10-PCS; 2018-09-05)
PROC: 5A1D70Z Performance of Urinary Filtration, Intermittent, Less than 6 Hours Per Day (ICD-10-PCS; 2018-09-06)
PROC: 5A1D70Z Performance of Urinary Filtration, Intermittent, Less than 6 Hours Per Day (ICD-10-PCS; 2018-09-08)
PROC: 5A1D70Z Performance of Urinary Filtration, Intermittent, Less than 6 Hours Per Day (ICD-10-PCS; 2018-09-11)
PROC: 5A1D70Z Performance of Urinary Filtration, Intermittent, Less than 6 Hours Per Day (ICD-10-PCS; 2018-09-13)
PROC: 5A1D70Z Performance of Urinary Filtration, Intermittent, Less than 6 Hours Per Day (ICD-10-PCS; 2018-09-15)
DX: N17.9 Acute kidney failure, unspecified (principal); I13.11 Hypertensive heart and chronic kidney disease without heart failure, with stage 5 chronic kidney disease, or end stage renal disease; I95.9 Hypotension, unspecified; I32 Pericarditis in diseases classified elsewhere; I31.3 Pericardial effusion (noninflammatory); E83.51 Hypocalcemia; F10.10 Alcohol abuse, uncomplicated; Z91.14 Patient's other noncompliance with medication regimen; Z82.49 Family history of ischemic heart disease and other diseases of the circulatory system; N18.6 End stage renal disease; Z99.2 Dependence on renal dialysis; R74.8 Abnormal levels of other serum enzymes; R79.89 Other specified abnormal findings of blood chemistry; R94.31 Abnormal electrocardiogram [ECG] [EKG]; D63.1 Anemia in chronic kidney disease; E87.6 Hypokalemia; F17.210 Nicotine dependence, cigarettes, uncomplicated; I16.1 Hypertensive emergency; N04.9 Nephrotic syndrome with unspecified morphologic changes; E83.39 Other disorders of phosphorus metabolism; Z23 Encounter for immunization

== ENCOUNTER 2018-11-12 18:16 | Inpatient (IN) | payer OTHER ==
--- NOTE | 2018-11-12 18:55 | ED PDOC ---
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 He states that he feels "fine for the most part", however, experiences shortness of breath while working but has resolution when he sits. Patient denies chest pain, changes in hearing, headache, trauma, fever, chills, or dysuria. Of note, patient was admitted to hospital 2 months ago for hypertensive urgency with acute kidney injury but signed out AMA per review of EMR. Dialysis was given during admission. PCP: none provided Past Medical History Reviewed: Historical Data, Nursing Documentation, Vital Signs Vital Signs: Last Vital Signs Temp 97.9 F 11/12/18 18:19 Pulse 99 H 11/12/18 18:19 Resp 19 11/12/18 18:19 BP 240/164 H 11/12/18 18:19 Pulse Ox 100 11/12/18 18:19 - Medical History PMH: HTN, End Stage Renal Disease Denies: HIV, Chronic Kidney Disease Other PMH: acute renal failure - Family History Family History: States: Unknown Family Hx - Home Medications Home Medications: Ambulatory Orders Medication Instructions Recorded RX: No Known Home Med 09/05/18 - Allergies Allergies/Adverse Reactions: Allergies Allergy/AdvReac Type Severity Reaction Status Date / Time No Known Allergies Allergy Verified 09/05/18 00:02 Review of Systems ROS Statement: Except As Marked, All Systems Reviewed And Found Negative Constitutional: Negative for: Fever, Chills Eyes: Positive for: Vision Change (blurry) ENT: Negative for: Other (hearing changes) Cardiovascular: Negative for: Chest Pain Respiratory: Positive for: SOB with Exertion Genitourinary Male: Negative for: Dysuria Neurological: Negative for: Headache Physical Exam - Reviewed Nursing Documentation Reviewed: Yes Vital Signs Reviewed: Yes - Physical Exam Appears: Positive for: No Acute Distress Head Exam: Positive for: ATRAUMATIC, NORMAL INSPECTION, NORMOCEPHALIC Skin: Positive for: Normal Color Eye Exam: Negative for: Other (ophthalmic exam) ENT: Positive for: Normal ENT Inspection. Negative for: Pharyngeal Erythema Neck: Positive for: Normal Cardiovascular/Chest: Positive for: Regular Rate, Rhythm Respiratory: Positive for: Crackles (mild bilaterally), Wheezing (mild bilaterally) Gastrointestinal/Abdominal: Positive for: Normal Exam, Soft. Negative for: Tenderness Extremity: Positive for: Normal ROM (upper/lower), Swelling (finger clubbing) Neurologic/Psych: Positive for: Alert, Oriented. Negative for: Motor/Sensory Deficits - Laboratory Results Result Diagrams: 11/15/18 05:50 11/15/18 05:50 - ECG O2 Sat by Pulse Oximetry: 100 (RA) Pulse Ox Interpretation: Normal Medical Decision Making Medical Decision Making: Time: 1827 Initial Plan: work-up for hypertensive emergency. B/P: 240/167. Patient is sym ptomatic with blurry vision. Most likely admission. * Labs * EKG * CXR * Apresoline 10mg IV Time: 1899 --Using same certified court/medical interpreter (ID#[id number]), provider discussed with patient about the urgency of treating his life-threatening disease. Provider explained in great detail and emphasis that if patient continues his habits without change, he will at a young age. Patient expresses that he understands provider's concern. Patient endorsed to Dr. Haywood, pending lab and imaging results. Most likely admit to ICU. Scribe Attestation: Documented by Brisa Arvizu, acting as a scribe for Blanquita Alvarado MD. Provider Scribe Attestation: All medical record entries made by the Scribe were at my direction and personally dictated by me. I have reviewed the chart and agree that the record accurately reflects my personal performance of the history, physical exam, medical decision making, and the department course for this patient. I have also personally directed, reviewed, and agree with the discharge instructions and disposition. Disposition - Clinical Impression Clinical Impression: Hypertensive emergency, MADAI (acute kidney injury), Acute renal failure (ARF) - Disposition Disposition Time: 19:00 Condition: SERIOUS
[2018-11-12 19:22] LABS: BASO # 0.1 K/uL (0.0-0.2); EOS # 0.2 K/uL (0.0-0.7); EOS % 2.6 % (0.0-4.0); HEMOGLOBIN 9.5 g/dL (12.0-18.0); LYMPH # 0.7 K/uL (1.0-4.3); LYMPH % 9.7 % (20.0-40.0); MEAN CELL VOLUME 90.9 fl (80.0-94.0); MEAN CORPUSCULAR HEMOGLOBIN 30.1 pg (27.0-31.0); MEAN CORPUSCULAR HGB CONC 33.1 g/dL (33.0-37.0); MEAN PLATELET VOLUME 8.1 fl (7.2-11.7); MONO # 0.5 K/uL (0.0-0.8); MONO % 7.2 % (0.0-10.0); NEUT # 5.7 K/uL (1.8-7.0); NEUT % 79.5 % (50.0-75.0); PLATELET COUNT 153 K/uL (130-400); RBC 3.16 Mil/uL (4.40-5.90); RED CELL DISTRIBUTION WIDTH 13.9 % (11.5-14.5); WHITE BLOOD COUNT 7.2 K/uL (4.8-10.8)
[2018-11-12 19:24] LABS: VENOUS BLOOD GAS BASE EXCESS -19.9 mmol/L (0.0-2.0); VENOUS BLOOD GAS PCO2 59 mmHg (40-60); VENOUS BLOOD GAS PO2 35 mm/Hg (30-55); VENOUS BLOOD PH 6.94 (7.32-7.43)
[2018-11-12 19:37] LABS: ALB/GLOB RATIO 1.2 (1.0-2.1); ALBUMIN 3.4 g/dL (3.5-5.0); ALT/SGPT 124 U/L (21-72); AST/SGOT 134 U/L (17-59); B-TYPE NATRIURETIC PEPTIDE > 35000 pg/ml (0-450); CALCIUM 5.9 mg/dL (8.4-10.2)
[2018-11-12] MEDS ORDERED: Nicardipine 20 MG/200 ML 20 MG/200 ML BAG IV ONE (19:43)
[2018-11-12 19:49] LABS: GFR NON-AFRICAN AMERICAN 4
[2018-11-12 19:55] LABS: LYMPHOCYTE 9 % (20-50); MONOCYTE 3 % (0-10); NEUTROPHIL 88 % (42-75); PLATELET ESTIMATE NORMAL (NORMAL); TOTAL CELLS COUNTED 100
[2018-11-12 19:56] LABS: ANISOCYTOSIS SLIGHT; OVALOCYTES SLIGHT; POIKILOCYTOSIS SLIGHT
[2018-11-12] MEDS ORDERED: Labetalol 5mg/ml (4ml) IVP STA (19:57)
[2018-11-12 19:58] LABS: VENOUS BLOOD GAS BASE EXCESS -10.9 mmol/L (0.0-2.0); VENOUS BLOOD GAS PCO2 31 mmHg (40-60); VENOUS BLOOD GAS PO2 37 mm/Hg (30-55); VENOUS BLOOD PH 7.28 (7.32-7.43)
[2018-11-12 20:01] LABS: BLOOD UREA NITROGEN 108 mg/dl (9-20)
[2018-11-12 20:11] LABS: ABG ALLEN TEST YES; ARTERIAL BLOOD GAS HCO3 16.4 mmol/L (21-28); ARTERIAL BLOOD GAS O2 SAT 100.9 % (95-98); ARTERIAL BLOOD GAS PCO2 22 mm/Hg (35-45); ARTERIAL BLOOD GAS PH 7.36 (7.35-7.45); ARTERIAL BLOOD GAS PO2 93 mm/Hg (80-100); ARTERIAL BLOOD GAS TCO2 13.1 mmol/L (22-28)
[2018-11-12 20:13] LABS: SQUAMOUS EPITHIAL 1 /hpf (0-5); URINE BACTERIA RARE (<OCC); URINE BILIRUBIN NEGATIVE (NEGATIVE); URINE BLOOD SMALL (NEGATIVE); URINE CLARITY SLIGHTY-CLOUDY (Clear); URINE COLOR STRAW (YELLOW); URINE GLUCOSE (UA) 50 mg/dL (NEGATIVE); URINE LEUKOCYTE ESTERASE NEG Leu/uL (Negative); URINE PROTEIN >=500 mg/dL (NEGATIVE); URINE UROBILINOGEN 0.2-1.0 mg/dL (0.2-1.0)
[2018-11-12] MEDS ORDERED: Labetalol 5mg/ml (4ml) ONE (20:15)
[2018-11-12] MEDS ORDERED: Nicardipine 20 MG/200 ML 20 MG/200 ML BAG ONE (20:16)
[2018-11-12 20:30] LABS: TROPONIN I 0.087 ng/mL (0.00-0.120)
[2018-11-12 20:34] LABS: INR 1.2; PROTHROMBIN TIME 13.4 Seconds (9.8-13.1)
[2018-11-12 20:36] LABS: PARTIAL THROMBOPLASTIN TIME 73.3 Seconds (25.6-37.1)
[2018-11-12 20:54] LABS: BARBITURATES, UR NEGATIVE (NEGATIVE); BENZODIAZEPINES, UR NEGATIVE (NEGATIVE); OPIATES, UR NEGATIVE (NEGATIVE); PHENCYCLIDINE, UR NEGATIVE (NEGATIVE)
--- NOTE | 2018-11-12 20:58 | CP.PCM.HP ---
<Kevin Ortiz - Last Filed: 11/12/18 22:48> History of Present Illness - History of Present Illness History of Present Illness: 32 yo M with pmhx of HTN and ESRF presents to ED with blurred vision Blurred vision: presented 3 days prior. Onset when he woke up from sleep. He felt swelling around his eyes. Symptoms have not improved. Associated with epigastric pain radiating laterally when he eats. He also noted mild dizziness 1 week prior while at work. Not aggravated with exertion or lifting heavy objects. No prior events. Reports 1 month history of cloudy, yellow urine Denies N/V,CP, anuria Of note: Pt was admitted on 09/05 with hypertensive emergency and ESRD; refused bx and fistula placement. Left AMA. PMD: none; pt applying for [facility] Surg: none Famhx: none Soc: previously smoker: 1 cig/day on occasion 3 months prior; Denies: ETOH or illicit drugs Rx: none NKDA Present on Admission - Present on Admission Any Indicators Present on Admission: No History of Uncontrolled Diabetes: No Urinary Catheter: No Review of Systems - EENT Eyes: Blurred Vision, Change in Vision - Cardiovascular Cardiovascular: absent: Chest Pain, Chest Pain at Rest - Respiratory Respiratory: absent: Cough, Dyspnea - Gastrointestinal Gastrointestinal: Abdominal Pain. absent: Hematochezia, Melena, Nausea, Vomiting - Genitourinary Genitourinary: absent: Dysuria, Hematuria - Musculoskeletal Musculoskeletal: absent: Abnormal Gait Past Patient History - Infectious Disease Hx of Infectious Diseases: None - Past Medical History & Family History Past Medical History?: No - Past Social History Smoking Status: Former Smoker Alcohol: None Drugs: Denies Home Situation {Lives}: Homeless - CARDIAC Hx Cardiac Disorders: Yes Hx Hypertension: Yes - PULMONARY Hx Respiratory Disorders: No - NEUROLOGICAL Hx Neurological Disorder: No - HEENT Hx HEENT Problems: No - RENAL Hx Chronic Kidney Disease: Yes Hx Dialysis: Yes Hx Renal Failure: Yes - ENDOCRINE/METABOLIC Hx Endocrine Disorders: No - HEMATOLOGICAL/ONCOLOGICAL Hx Human Immunodeficiency Virus (HIV): No - INTEGUMENTARY Hx Dermatological Problems: No - MUSCULOSKELETAL/RHEUMATOLOGICAL Hx Falls: No - GENITOURINARY/GYNECOLOGICAL Hx Genitourinary Disorders: No - PSYCHIATRIC Hx Psychophysiologic Disorder: No Hx Substance Use: No - SURGICAL HISTORY Hx Surgeries: Yes Other/Comment: Head surgery secondary to trauma 8 months ago - ANESTHESIA Hx Anesthesia: Yes Hx Anesthesia Reactions: No Hx Malignant Hyperthermia: No Meds Allergies/Adverse Reactions: Allergies Allergy/AdvReac Type Severity Reaction Status Date / Time No Known Allergies Allergy Verified 09/05/18 00:02 Physical Exam - Constitutional Appears: No Acute Distress - Eye Exam Eye Exam: EOMI, PERRL. absent: Nystagmus, Scleral icterus - ENT Exam ENT Exam: Mucous Membranes Moist - Respiratory Exam Respiratory Exam: Clear to Auscultation Bilateral, NORMAL BREATHING PATTERN. absent: Wheezes - Cardiovascular Exam Cardiovascular Exam: REGULAR RHYTHM, +S1, +S2 - GI/Abdominal Exam GI & Abdominal Exam: Normal Bowel Sounds, Soft. absent: Tenderness - Neurological Exam Neurological exam: Alert, CN II-XII Intact, Oriented x3 - Psychiatric Exam Psychiatric exam: Normal Affect, Normal Mood Results - Vital Signs Recent Vital Signs: Last Vital Signs Temp 97.9 F 11/12/18 18:19 Pulse 88 11/12/18 19:38 Resp 17 11/12/18 19:38 BP 193/133 H 11/12/18 19:38 Pulse Ox 100 11/12/18 20:46 - Labs Result Diagrams: 11/12/18 19:00 11/12/18 19:00 Labs: Laboratory Results - last 24 hr 11/12/18 11/12/18 11/12/18 19:00 19:00 19:05 WBC 7.2 RBC 3.16 L Hgb 9.5 L Hct 28.7 L MCV 90.9 MCH 30.1 MCHC 33.1 RDW 13.9 Plt Count 153 MPV 8.1 Neut % (Auto) 79.5 H Lymph % (Auto) 9.7 L [place] % (Auto) 7.2 Eos % (Auto) 2.6 Baso % (Auto) 1.0 Neut # (Auto) 5.7 Lymph # (Auto) 0.7 L [place] # (Auto) 0.5 Eos # (Auto) 0.2 Baso # (Auto) 0.1 Neutrophils % (Manual) 88 H Lymphocytes % (Manual) 9 L Monocytes % (Manual) 3 Platelet Estimate Normal Poikilocytosis (manual Slight Anisocytosis (manual) Slight Ovalocytes Slight PT INR APTT pCO2 pO2 35 HCO3 ABG pH ABG Total CO2 ABG O2 Saturation ABG Base Excess [place] Test ABG Potassium VBG pH 6.94 L* VBG pCO2 59 VBG HCO3 7.6 VBG Total CO2 14.5 L VBG O2 Sat (Calc) 48.2 VBG Base Excess -19.9 L VBG Potassium A-a O2 Difference Glucose 121 H Lactate 0.8 FiO2 21.0 Crit Value Called To Heidi fagan rn Crit Value Called By Wendy canada rt Crit Value Read Back Y Blood Gas Notified Time 1921 Sodium 138 124.0 L Potassium 3.2 L Chloride 104 102.0 Carbon Dioxide 16 L Anion Gap 21 H BUN 108 H* D Creatinine 14.6 H* D Est GFR ( Amer) 5 Est GFR (Non-Af Amer) 4 Random Glucose 118 H Calcium 5.9 L* D Phosphorus Magnesium Total Bilirubin 0.2 AST 134 H D ALT 124 H D Alkaline Phosphatase 262 H D Troponin I NT-Pro-B Natriuret Pep > 23056 H Total Protein 6.3 Albumin 3.4 L Globulin 2.9 Albumin/Globulin Ratio 1.2 Arterial Blood Potassium Venous Blood Potassium Urine Color Urine Clarity Urine pH Ur Specific [place] Urine Protein Urine Glucose (UA) Urine Ketones Urine Blood Urine Nitrate Urine Bilirubin Urine Urobilinogen Ur Leukocyte Esterase Urine RBC (Auto) Urine Microscopic WBC Ur Squamous Epith Cells Urine Bacteria Alcohol, Quantitative 11/12/18 11/12/18 11/12/18 19:50 19:57 20:00 WBC RBC Hgb Hct MCV MCH MCHC RDW Plt Count MPV Neut % (Auto) Lymph % (Auto) [place] % (Auto) Eos % (Auto) Baso % (Auto) Neut # (Auto) Lymph # (Auto) [place] # (Auto) Eos # (Auto) Baso # (Auto) Neutrophils % (Manual) Lymphocytes % (Manual) Monocytes % (Manual) Platelet Estimate Poikilocytosis (manual Anisocytosis (manual) Ovalocytes PT INR APTT pCO2 22 L pO2 37 93 HCO3 16.4 L ABG pH 7.36 ABG Total CO2 13.1 L ABG O2 Saturation 100.9 H ABG Base Excess -10.9 L [place] Test Yes ABG Potassium 2.9 L VBG pH 7.28 L VBG pCO2 31 L VBG HCO3 15.5 VBG Total CO2 15.6 L VBG O2 Sat (Calc) 69.6 H VBG Base Excess -10.9 L VBG Potassium 3.1 L A-a O2 Difference 29.0 Glucose 102 99 Lactate 1.2 0.5 L FiO2 21.0 21.0 Crit Value Called To Crit Value Called By Crit Value Read Back Blood Gas Notified Time Sodium 135.0 133.0 Potassium Chloride 105.0 106.0 Carbon Dioxide Anion Gap BUN Creatinine Est GFR ( Amer) Est GFR (Non-Af Amer) Random Glucose Calcium Phosphorus Magnesium Total Bilirubin AST ALT Alkaline Phosphatase Troponin I NT-Pro-B Natriuret Pep Total Protein Albumin Globulin Albumin/Globulin Ratio Arterial Blood Potassium 2.9 L Venous Blood Potassium 3.1 L Urine Color Straw Urine Clarity Slighty-cloudy Urine pH 7.0 Ur Specific [place] 1.008 Urine Protein >=500 Urine Glucose (UA) 50 Urine Ketones Negative Urine Blood Small Urine Nitrate Negative Urine Bilirubin Negative Urine Urobilinogen 0.2-1.0 Ur Leukocyte Esterase Neg Urine RBC (Auto) 1 Urine Microscopic WBC 9 H Ur Squamous Epith Cells 1 Urine Bacteria Rare Alcohol, Quantitative 11/12/18 11/12/18 11/12/18 20:00 20:20 20:20 WBC RBC Hgb Hct MCV MCH MCHC RDW Plt Count MPV Neut % (Auto) Lymph % (Auto) [place] % (Auto) Eos % (Auto) Baso % (Auto) Neut # (Auto) Lymph # (Auto) [place] # (Auto) Eos # (Auto) Baso # (Auto) Neutrophils % (Manual) Lymphocytes % (Manual) Monocytes % (Manual) Platelet Estimate Poikilocytosis (manual Anisocytosis (manual) Ovalocytes PT 13.4 H INR 1.2 APTT 73.3 H pCO2 pO2 HCO3 ABG pH ABG Total CO2 ABG O2 Saturation ABG Base Excess [place] Test ABG Potassium VBG pH VBG pCO2 VBG HCO3 VBG Total CO2 VBG O2 Sat (Calc) VBG Base Excess VBG Potassium A-a O2 Difference Glucose Lactate FiO2 Crit Value Called To Crit Value Called By Crit Value Read Back Blood Gas Notified Time Sodium Potassium Chloride Carbon Dioxide Anion Gap BUN Creatinine Est GFR ( Amer) Est GFR (Non-Af Amer) Random Glucose Calcium Phosphorus 9.6 H Magnesium 1.9 Total Bilirubin AST ALT Alkaline Phosphatase Troponin I 0.0870 NT-Pro-B Natriuret Pep Total Protein Albumin Globulin Albumin/Globulin Ratio Arterial Blood Potassium Venous Blood Potassium Urine Color Urine Clarity Urine pH Ur Specific [place] Urine Protein Urine Glucose (UA) Urine Ketones Urine Blood Urine Nitrate Urine Bilirubin Urine Urobilinogen Ur Leukocyte Esterase Urine RBC (Auto) Urine Microscopic WBC Ur Squamous Epith Cells Urine Bacteria Alcohol, Quantitative < 10 Assessment & Plan - Assessment and Plan (Free Text) Assessment: 32 yo M with pmhx of HTN and ESRF admitted for ARF and hypertensive emergency. Plan: ESRD BUN: 108; Cr: 14.6; GFR:4; Ca: 5.9; Phos: 9.6; M.9 UA: small blood Surgery: Dr. Lugo: Shiley catheter in R IJ; recs appreciated Nephrology: Dr. Yang; for HD; additional recs appreciated; started bumex Start: ergocalciferol, nephrovite, epo, sevelamer, venofer HD tomorrow f/u labs Hypertensive emergency ED: 220/164 with blurred vision Cardiology: Dr. Hamlin; recs appreciated Pro BNP: >37626 Trop I: neg x1 s/p labetalol 20 mg IVP, Hydralazine 10 mg, Nicardipine drip start: Hydralazine 10 mg PO TID, Carvedilol 6.25 mg BID Monitor for worsening of symptoms/end organ damage, vitals Anemia H/H: 9.5/28.7 normocytic; likely 2/2 ESRD monitor CBC Hypokalemia 3.2 KDUR: 40 meq f/u CMP Hypocalcemia 5.9 Phos: 9.6 HD tomorrow Transaminitis AST: 134 ALT: 124 Alk Phos: 262 ETOH: <10 Utox: negative Trend and monitor DVT prophylaxis SCDs Case and Plan discussed with Dr. Edgar Ortiz MD PGY-2 <Barby Hernández - Last Filed: 11/13/18 07:40> Results - Vital Signs Recent Vital Signs: Last Vital Signs Temp 98.0 F 11/13/18 01:00 Pulse 75 11/13/18 07:00 Resp 11 L 11/13/18 07:00 BP 151/86 H 11/13/18 07:00 Pulse Ox 99 11/13/18 07:00 - Labs Result Diagrams: 11/13/18 04:30 11/13/18 04:30 Labs: Laboratory Results - last 24 hr 11/12/18 11/12/18 11/12/18 19:00 19:00 19:05 WBC 7.2 RBC 3.16 L Hgb 9.5 L Hct 28.7 L MCV 90.9 MCH 30.1 MCHC 33.1 RDW 13.9 Plt Count 153 MPV 8.1 Neut % (Auto) 79.5 H Lymph % (Auto) 9.7 L [place] % (Auto) 7.2 Eos % (Auto) 2.6 Baso % (Auto) 1.0 Neut # (Auto) 5.7 Lymph # (Auto) 0.7 L [place] # (Auto) 0.5 Eos # (Auto) 0.2 Baso # (Auto) 0.1 Neutrophils % (Manual) 88 H Lymphocytes % (Manual) 9 L Monocytes % (Manual) 3 Platelet Estimate Normal Poikilocytosis (manual Slight Anisocytosis (manual) Slight Ovalocytes Slight PT INR APTT pCO2 pO2 35 HCO3 ABG pH ABG Total CO2 ABG O2 Saturation ABG Base Excess [place] Test ABG Potassium VBG pH 6.94 L* VBG pCO2 59 VBG HCO3 7.6 VBG Total CO2 14.5 L VBG O2 Sat (Calc) 48.2 VBG Base Excess -19.9 L VBG Potassium A-a O2 Difference Glucose 121 H Lactate 0.8 FiO2 21.0 Crit Value Called To Heidi fagan rn Crit Value Called By Wendy canada rt Crit Value Read Back Y Blood Gas Notified Time 1921 Sodium 138 124.0 L Potassium 3.2 L Chloride 104 102.0 Carbon Dioxide 16 L Anion Gap 21 H BUN 108 H* D Creatinine 14.6 H* D Est GFR ( Amer) 5 Est GFR (Non-Af Amer) 4 Random Glucose 118 H Calcium 5.9 L* D Phosphorus Magnesium Total Bilirubin 0.2 AST 134 H D ALT 124 H D Alkaline Phosphatase 262 H D Troponin I NT-Pro-B Natriuret Pep > 67170 H Total Protein 6.3 Albumin 3.4 L Globulin 2.9 Albumin/Globulin Ratio 1.2 Arterial Blood Potassium Venous Blood Potassium Urine Color Urine Clarity Urine pH Ur Specific [place] Urine Protein Urine Glucose (UA) Urine Ketones Urine Blood Urine Nitrate Urine Bilirubin Urine Urobilinogen Ur Leukocyte Esterase Urine RBC (Auto) Urine Microscopic WBC Ur Squamous Epith Cells Urine Bacteria Urine Opiates Screen Urine Methadone Screen Ur Barbiturates Screen Ur Phencyclidine Scrn Ur Amphetamines Screen U Benzodiazepines Scrn U Oth Cocaine Metabols U Cannabinoids Screen Alcohol, Quantitative 11/12/18 11/12/18 11/12/18 19:50 19:57 20:00 WBC RBC Hgb Hct MCV MCH MCHC RDW Plt Count MPV Neut % (Auto) Lymph % (Auto) [place] % (Auto) Eos % (Auto) Baso % (Auto) Neut # (Auto) Lymph # (Auto) [place] # (Auto) Eos # (Auto) Baso # (Auto) Neutrophils % (Manual) Lymphocytes % (Manual) Monocytes % (Manual) Platelet Estimate Poikilocytosis (manual Anisocytosis (manual) Ovalocytes PT INR APTT pCO2 22 L pO2 37 93 HCO3 16.4 L ABG pH 7.36 ABG Total CO2 13.1 L ABG O2 Saturation 100.9 H ABG Base Excess -10.9 L [place] Test Yes ABG Potassium 2.9 L VBG pH 7.28 L VBG pCO2 31 L VBG HCO3 15.5 VBG Total CO2 15.6 L VBG O2 Sat (Calc) 69.6 H VBG Base Excess -10.9 L VBG Potassium 3.1 L A-a O2 Difference 29.0 Glucose 102 99 Lactate 1.2 0.5 L FiO2 21.0 21.0 Crit Value Called To Crit Value Called By Crit Value Read Back Blood Gas Notified Time Sodium 135.0 133.0 Potassium Chloride 105.0 106.0 Carbon Dioxide Anion Gap BUN Creatinine Est GFR ( Amer) Est GFR (Non-Af Amer) Random Glucose Calcium Phosphorus Magnesium Total Bilirubin AST ALT Alkaline Phosphatase Troponin I NT-Pro-B Natriuret Pep Total Protein Albumin Globulin Albumin/Globulin Ratio Arterial Blood Potassium 2.9 L Venous Blood Potassium 3.1 L Urine Color Straw Urine Clarity Slighty-cloudy Urine pH 7.0 Ur Specific [place] 1.008 Urine Protein >=500 Urine Glucose (UA) 50 Urine Ketones Negative Urine Blood Small Urine Nitrate Negative Urine Bilirubin Negative Urine Urobilinogen 0.2-1.0 Ur Leukocyte Esterase Neg Urine RBC (Auto) 1 Urine Microscopic WBC 9 H Ur Squamous Epith Cells 1 Urine Bacteria Rare Urine Opiates Screen Urine Methadone Screen Ur Barbiturates Screen Ur Phencyclidine Scrn Ur Amphetamines Screen U Benzodiazepines Scrn U Oth Cocaine Metabols U Cannabinoids Screen Alcohol, Quantitative 11/12/18 11/12/18 11/12/18 20:00 20:20 20:20 WBC RBC Hgb Hct MCV MCH MCHC RDW Plt Count MPV Neut % (Auto) Lymph % (Auto) [place] % (Auto) Eos % (Auto) Baso % (Auto) Neut # (Auto) Lymph # (Auto) [place] # (Auto) Eos # (Auto) Baso # (Auto) Neutrophils % (Manual) Lymphocytes % (Manual) Monocytes % (Manual) Platelet Estimate Poikilocytosis (manual Anisocytosis (manual) Ovalocytes PT INR APTT pCO2 pO2 HCO3 ABG pH ABG Total CO2 ABG O2 Saturation ABG Base Excess [place] Test ABG Potassium VBG pH VBG pCO2 VBG HCO3 VBG Total CO2 VBG O2 Sat (Calc) VBG Base Excess VBG Potassium A-a O2 Difference Glucose Lactate FiO2 Crit Value Called To Crit Value Called By Crit Value Read Back Blood Gas Notified Time Sodium Potassium Chloride Carbon Dioxide Anion Gap BUN Creatinine Est GFR ( Amer) Est GFR (Non-Af Amer) Random Glucose Calcium Phosphorus 9.6 H Magnesium 1.9 Total Bilirubin AST ALT Alkaline Phosphatase Troponin I 0.0870 NT-Pro-B Natriuret Pep Total Protein Albumin Globulin Albumin/Globulin Ratio Arterial Blood Potassium Venous Blood Potassium Urine Color Urine Clarity Urine pH Ur Specific [place] Urine Protein Urine Glucose (UA) Urine Ketones Urine Blood Urine Nitrate Urine Bilirubin Urine Urobilinogen Ur Leukocyte Esterase Urine RBC (Auto) Urine Microscopic WBC Ur Squamous Epith Cells Urine Bacteria Urine Opiates Screen Negative Urine Methadone Screen Negative Ur Barbiturates Screen Negative Ur Phencyclidine Scrn Negative Ur Amphetamines Screen Negative U Benzodiazepines Scrn Negative U Oth Cocaine Metabols Negative U Cannabinoids Screen Negative Alcohol, Quantitative < 10 11/12/18 11/13/18 11/13/18 20:20 04:30 04:30 WBC 5.4 RBC 3.11 L Hgb 9.5 L Hct 27.7 L MCV 89.1 MCH 30.5 MCHC 34.3 RDW 13.6 Plt Count 165 MPV Neut % (Auto) Lymph % (Auto) [place] % (Auto) Eos % (Auto) Baso % (Auto) Neut # (Auto) Lymph # (Auto) [place] # (Auto) Eos # (Auto) Baso # (Auto) Neutrophils % (Manual) Lymphocytes % (Manual) Monocytes % (Manual) Platelet Estimate Poikilocytosis (manual Anisocytosis (manual) Ovalocytes PT 13.4 H 12.0 INR 1.2 1.1 APTT 73.3 H 45.3 H pCO2 pO2 HCO3 ABG pH ABG Total CO2 ABG O2 Saturation ABG Base Excess [place] Test ABG Potassium VBG pH VBG pCO2 VBG HCO3 VBG Total CO2 VBG O2 Sat (Calc) VBG Base Excess VBG Potassium A-a O2 Difference Glucose Lactate FiO2 Crit Value Called To Crit Value Called By Crit Value Read Back Blood Gas Notified Time Sodium Potassium Chloride Carbon Dioxide Anion Gap BUN Creatinine Est GFR ( Amer) Est GFR (Non-Af Amer) Random Glucose Calcium Phosphorus Magnesium Total Bilirubin AST ALT Alkaline Phosphatase Troponin I NT-Pro-B Natriuret Pep Total Protein Albumin Globulin Albumin/Globulin Ratio Arterial Blood Potassium Venous Blood Potassium Urine Color Urine Clarity Urine pH Ur Specific [place] Urine Protein Urine Glucose (UA) Urine Ketones Urine Blood Urine Nitrate Urine Bilirubin Urine Urobilinogen Ur Leukocyte Esterase Urine RBC (Auto) Urine Microscopic WBC Ur Squamous Epith Cells Urine Bacteria Urine Opiates Screen Urine Methadone Screen Ur Barbiturates Screen Ur Phencyclidine Scrn Ur Amphetamines Screen U Benzodiazepines Scrn U Oth Cocaine Metabols U Cannabinoids Screen Alcohol, Quantitative 11/13/18 04:30 WBC RBC Hgb Hct MCV MCH MCHC RDW Plt Count MPV Neut % (Auto) Lymph % (Auto) [place] % (Auto) Eos % (Auto) Baso % (Auto) Neut # (Auto) Lymph # (Auto) [place] # (Auto) Eos # (Auto) Baso # (Auto) Neutrophils % (Manual) Lymphocytes % (Manual) Monocytes % (Manual) Platelet Estimate Poikilocytosis (manual Anisocytosis (manual) Ovalocytes PT INR APTT pCO2 pO2 HCO3 ABG pH ABG Total CO2 ABG O2 Saturation ABG Base Excess [place] Test ABG Potassium VBG pH VBG pCO2 VBG HCO3 VBG Total CO2 VBG O2 Sat (Calc) VBG Base Excess VBG Potassium A-a O2 Difference Glucose Lactate FiO2 Crit Value Called To Crit Value Called By Crit Value Read Back Blood Gas Notified Time Sodium 138 Potassium 3.4 L Chloride 105 Carbon Dioxide 13 L Anion Gap 23 H BUN 109 H* Creatinine 14.7 H* Est GFR ( Amer) 5 Est GFR (Non-Af Amer) 4 Random Glucose 104 Calcium 6.3 L Phosphorus 9.2 H Magnesium 2.0 Total Bilirubin 0.3 AST 69 H D ALT 112 H Alkaline Phosphatase 257 H Troponin I NT-Pro-B Natriuret Pep Total Protein 6.6 Albumin 3.5 Globulin 3.1 Albumin/Globulin Ratio 1.1 Arterial Blood Potassium Venous Blood Potassium Urine Color Urine Clarity Urine pH Ur Specific [place] Urine Protein Urine Glucose (UA) Urine Ketones Urine Blood Urine Nitrate Urine Bilirubin Urine Urobilinogen Ur Leukocyte Esterase Urine RBC (Auto) Urine Microscopic WBC Ur Squamous Epith Cells Urine Bacteria Urine Opiates Screen Urine Methadone Screen Ur Barbiturates Screen Ur Phencyclidine Scrn Ur Amphetamines Screen U Benzodiazepines Scrn U Oth Cocaine Metabols U Cannabinoids Screen Alcohol, Quantitative Attending/Attestation - Attestation I have personally seen and examined this patient.: Yes I have fully participated in the care of the patient.: Yes I have reviewed all pertinent clinical information: Yes Notes (Text): 11/13/18 07:40 agree with findings and plan as above
--- NOTE | 2018-11-12 21:12 | ED PDOC ---
- Laboratory Results Result Diagrams: 11/12/18 19:00 11/12/18 19:00 Interpretation Of Abn Labs: noted anemia, elevated BUN CR much worse than when pt was here in aug. however pt is not elevated. Calcium is very low. - ECG ECG Rhythm: Positive for: Sinus Rhythm O2 Sat by Pulse Oximetry: 100 (RA) Pulse Ox Interpretation: Normal - Radiology X-Ray: Interpreted by Me (cephalization, cw chf), Viewed By Me - Progress Condition: Re-examined - Critical Care Total Time (In Min): 40 Documented Critical Care: Time excludes all time spent performint seperately billable procedures Medical Decision Making Medical Decision Making: Time: 1899 --Patient endorsed to provider by Dr. Alvarado pending lab and imaging results. Blood pressure noted to be high, i added on cardene drip for hypertensive emergency Time: 1943 --Labs reviewed: elevated BUN/creatinine. Low potassium. Extremely low calcium. Elevated BNP. --CXR: (+) CHF. --CT head additionally ordered to evaluate blurry vision. Time: 2013 --Dr. Lugo and financial institution vice president made aware of case and need for shiley for emergeny dialysis . Case discussed with Dr. Hernández, hospitalist, who accepts patient for ICU. pt without signs of speis, wbc normal, no fever Time: 2029 --Discussed case with nephrology irrigationist, Dr. Janak Yang. He will evaluation patient at bedside. --Re-eval: patient in no distress, AxO x3. aware of his serious state. Time: 2058 --CT head FINDINGS: BRAIN No acute intraparenchymal hemorrhage. No mass lesion. No CT evidence for acute territorial infarct. No midline shift or extra-axial collections. VENTRICLES: No hydrocephalus. ORBITS: The orbits are unremarkable. SINUSES AND MASTOIDS: The paranasal sinuses and mastoid air cells are clear. BONES: No fracture. SOFT TISSUES: Unremarkable. IMPRESSION: No acute intracranial abnormality. Time: 2130 --Dr. Yang arrives to ED for evaluation. States that patient can be dialyzed tomorrow. Time: 00:37 Blood pressure has normalized at this time. ----- Scribe Attestation: Documented by Brisa Arvizu, acting as a scribe for Lucas Haywood MD. Provider Scribe Attestation: All medical record entries made by the Scribe were at my direction and personally dictated by me. I have reviewed the chart and agree that the record accurately reflects my personal performance of the history, physical exam, medical decision making, and the department course for this patient. I have also personally directed, reviewed, and agree with the discharge instructions and disposition. Disposition - Clinical Impression Clinical Impression: Hypertensive emergency, MADAI (acute kidney injury), Acute renal failure (ARF) - POA Present On Arrival: None - Disposition Disposition: Admitted as In-Patient Disposition Time: 20:30 Condition: SERIOUS
--- NOTE | 2018-11-12 21:59 | CP.PCM.CON ---
History of Present Illness - History of Present Illness History of Present Illness: General Surgery Consult Re: Shiley catheter placement HPI: 32M presented to ED with dizziness x 1 week and blurry vision x 3 days. He was found to have Hypertensive emergency with poor renal function and needed emergent dialysis so our service was consulted for HD catheter placement. He required HD in August of 2018. Reports periorbital edema, 1 month of cloudy, yellow urine, and abd pain after eating. Denies F/C, N/V, SOB, chest pain, diarrhea, constipation, hematuria, hematochezia, melena. PMH: HTN, Renal failure PSH: prior shiley catheter placement FH: Denies SH: Hx smoking 1 cig/day on occasion, quit 3 months prior; No ETOH or drug use All: NKDA Meds: Denies Review of Systems - Review of Systems All systems: reviewed and no additional remarkable complaints except (as per HPI) Past Patient History - Infectious Disease Hx of Infectious Diseases: None - Past Medical History & Family History Past Medical History?: No - Past Social History Smoking Status: Current Some Days Smoker - CARDIAC Hx Hypertension: Yes - PULMONARY Hx Respiratory Disorders: No - NEUROLOGICAL Hx Neurological Disorder: No - HEENT Hx HEENT Problems: No - RENAL Hx Chronic Kidney Disease: No - ENDOCRINE/METABOLIC Hx Endocrine Disorders: No - HEMATOLOGICAL/ONCOLOGICAL Hx Human Immunodeficiency Virus (HIV): No - INTEGUMENTARY Hx Dermatological Problems: No - MUSCULOSKELETAL/RHEUMATOLOGICAL Hx Falls: No - GENITOURINARY/GYNECOLOGICAL Hx Genitourinary Disorders: No - PSYCHIATRIC Hx Psychophysiologic Disorder: No Hx Substance Use: No - SURGICAL HISTORY Hx Surgeries: Yes Other/Comment: Head surgery secondary to trauma 8 months ago - ANESTHESIA Hx Anesthesia: Yes Hx Anesthesia Reactions: No Hx Malignant Hyperthermia: No Meds Allergies/Adverse Reactions: Allergies Allergy/AdvReac Type Severity Reaction Status Date / Time No Known Allergies Allergy Verified 09/05/18 00:02 - Medications Medications: Current Medications Carvedilol (Coreg) 6.25 mg PO Q12 JM Hydralazine HCl (Apresoline) 10 mg PO TID JM Nicardipine HCl (Cardene Iv Premix) 20 mg in 200 mls @ 50 mls/hr IV .Q4H ONE; Protocol Stop: 11/12/18 23:42 Last Admin: 11/12/18 20:24 Dose: 5 mg/hr, 50 mls/hr Physical Exam - Constitutional Appears: Non-toxic, No Acute Distress - Head Exam Head Exam: ATRAUMATIC, NORMOCEPHALIC - Eye Exam Eye Exam: EOMI. absent: Scleral icterus - Neck Exam Neck exam: Positive for: Full Rom. Negative for: Lymphadenopathy, Tenderness, Thyromegaly - Respiratory Exam Respiratory Exam: NORMAL BREATHING PATTERN. absent: Respiratory Distress - Cardiovascular Exam Cardiovascular Exam: RRR, +S1, +S2 - GI/Abdominal Exam GI & Abdominal Exam: Soft. absent: Distended, Tenderness - Rectal Exam Rectal Exam: Deferred - Extremities Exam Extremities exam: Positive for: normal capillary refill. Negative for: calf tenderness, pedal edema - Back Exam Back exam: absent: CVA tenderness (L), CVA tenderness (R) - Neurological Exam Neurological exam: Alert, Oriented x3 - Skin Skin Exam: Dry, Warm Results - Vital Signs Recent Vital Signs: Last Vital Signs Temp 97.9 F 11/12/18 18:19 Pulse 88 11/12/18 19:38 Resp 17 11/12/18 19:38 BP 193/133 H 11/12/18 19:38 Pulse Ox 100 11/12/18 21:51 - Labs Result Diagrams: 11/12/18 19:00 11/12/18 19:00 Labs: Laboratory Results - last 24 hr 11/12/18 11/12/18 11/12/18 19:00 19:00 19:05 WBC 7.2 RBC 3.16 L Hgb 9.5 L Hct 28.7 L MCV 90.9 MCH 30.1 MCHC 33.1 RDW 13.9 Plt Count 153 MPV 8.1 Neut % (Auto) 79.5 H Lymph % (Auto) 9.7 L Rich % (Auto) 7.2 Eos % (Auto) 2.6 Baso % (Auto) 1.0 Neut # (Auto) 5.7 Lymph # (Auto) 0.7 L Rich # (Auto) 0.5 Eos # (Auto) 0.2 Baso # (Auto) 0.1 Neutrophils % (Manual) 88 H Lymphocytes % (Manual) 9 L Monocytes % (Manual) 3 Platelet Estimate Normal Poikilocytosis (manual Slight Anisocytosis (manual) Slight Ovalocytes Slight PT INR APTT pCO2 pO2 35 HCO3 ABG pH ABG Total CO2 ABG O2 Saturation ABG Base Excess [place] Test ABG Potassium VBG pH 6.94 L* VBG pCO2 59 VBG HCO3 7.6 VBG Total CO2 14.5 L VBG O2 Sat (Calc) 48.2 VBG Base Excess -19.9 L VBG Potassium A-a O2 Difference Glucose 121 H Lactate 0.8 FiO2 21.0 Crit Value Called To Heidi fagan rn Crit Value Called By Wendy canada rt Crit Value Read Back Y Blood Gas Notified Time 1921 Sodium 138 124.0 L Potassium 3.2 L Chloride 104 102.0 Carbon Dioxide 16 L Anion Gap 21 H BUN 108 H* D Creatinine 14.6 H* D Est GFR ( Amer) 5 Est GFR (Non-Af Amer) 4 Random Glucose 118 H Calcium 5.9 L* D Phosphorus Magnesium Total Bilirubin 0.2 AST 134 H D ALT 124 H D Alkaline Phosphatase 262 H D Troponin I NT-Pro-B Natriuret Pep > 84292 H Total Protein 6.3 Albumin 3.4 L Globulin 2.9 Albumin/Globulin Ratio 1.2 Arterial Blood Potassium Venous Blood Potassium Urine Color Urine Clarity Urine pH Ur Specific [place] Urine Protein Urine Glucose (UA) Urine Ketones Urine Blood Urine Nitrate Urine Bilirubin Urine Urobilinogen Ur Leukocyte Esterase Urine RBC (Auto) Urine Microscopic WBC Ur Squamous Epith Cells Urine Bacteria Urine Opiates Screen Urine Methadone Screen Ur Barbiturates Screen Ur Phencyclidine Scrn Ur Amphetamines Screen U Benzodiazepines Scrn U Oth Cocaine Metabols U Cannabinoids Screen Alcohol, Quantitative 11/12/18 11/12/18 11/12/18 19:50 19:57 20:00 WBC RBC Hgb Hct MCV MCH MCHC RDW Plt Count MPV Neut % (Auto) Lymph % (Auto) Rich % (Auto) Eos % (Auto) Baso % (Auto) Neut # (Auto) Lymph # (Auto) Rich # (Auto) Eos # (Auto) Baso # (Auto) Neutrophils % (Manual) Lymphocytes % (Manual) Monocytes % (Manual) Platelet Estimate Poikilocytosis (manual Anisocytosis (manual) Ovalocytes PT INR APTT pCO2 22 L pO2 37 93 HCO3 16.4 L ABG pH 7.36 ABG Total CO2 13.1 L ABG O2 Saturation 100.9 H ABG Base Excess -10.9 L [place] Test Yes ABG Potassium 2.9 L VBG pH 7.28 L VBG pCO2 31 L VBG HCO3 15.5 VBG Total CO2 15.6 L VBG O2 Sat (Calc) 69.6 H VBG Base Excess -10.9 L VBG Potassium 3.1 L A-a O2 Difference 29.0 Glucose 102 99 Lactate 1.2 0.5 L FiO2 21.0 21.0 Crit Value Called To Crit Value Called By Crit Value Read Back Blood Gas Notified Time Sodium 135.0 133.0 Potassium Chloride 105.0 106.0 Carbon Dioxide Anion Gap BUN Creatinine Est GFR ( Amer) Est GFR (Non-Af Amer) Random Glucose Calcium Phosphorus Magnesium Total Bilirubin AST ALT Alkaline Phosphatase Troponin I NT-Pro-B Natriuret Pep Total Protein Albumin Globulin Albumin/Globulin Ratio Arterial Blood Potassium 2.9 L Venous Blood Potassium 3.1 L Urine Color Straw Urine Clarity Slighty-cloudy Urine pH 7.0 Ur Specific [place] 1.008 Urine Protein >=500 Urine Glucose (UA) 50 Urine Ketones Negative Urine Blood Small Urine Nitrate Negative Urine Bilirubin Negative Urine Urobilinogen 0.2-1.0 Ur Leukocyte Esterase Neg Urine RBC (Auto) 1 Urine Microscopic WBC 9 H Ur Squamous Epith Cells 1 Urine Bacteria Rare Urine Opiates Screen Urine Methadone Screen Ur Barbiturates Screen Ur Phencyclidine Scrn Ur Amphetamines Screen U Benzodiazepines Scrn U Oth Cocaine Metabols U Cannabinoids Screen Alcohol, Quantitative 11/12/18 11/12/18 11/12/18 20:00 20:20 20:20 WBC RBC Hgb Hct MCV MCH MCHC RDW Plt Count MPV Neut % (Auto) Lymph % (Auto) Rich % (Auto) Eos % (Auto) Baso % (Auto) Neut # (Auto) Lymph # (Auto) Rich # (Auto) Eos # (Auto) Baso # (Auto) Neutrophils % (Manual) Lymphocytes % (Manual) Monocytes % (Manual) Platelet Estimate Poikilocytosis (manual Anisocytosis (manual) Ovalocytes PT INR APTT pCO2 pO2 HCO3 ABG pH ABG Total CO2 ABG O2 Saturation ABG Base Excess [place] Test ABG Potassium VBG pH VBG pCO2 VBG HCO3 VBG Total CO2 VBG O2 Sat (Calc) VBG Base Excess VBG Potassium A-a O2 Difference Glucose Lactate FiO2 Crit Value Called To Crit Value Called By Crit Value Read Back Blood Gas Notified Time Sodium Potassium Chloride Carbon Dioxide Anion Gap BUN Creatinine Est GFR ( Amer) Est GFR (Non-Af Amer) Random Glucose Calcium Phosphorus 9.6 H Magnesium 1.9 Total Bilirubin AST ALT Alkaline Phosphatase Troponin I 0.0870 NT-Pro-B Natriuret Pep Total Protein Albumin Globulin Albumin/Globulin Ratio Arterial Blood Potassium Venous Blood Potassium Urine Color Urine Clarity Urine pH Ur Specific [place] Urine Protein Urine Glucose (UA) Urine Ketones Urine Blood Urine Nitrate Urine Bilirubin Urine Urobilinogen Ur Leukocyte Esterase Urine RBC (Auto) Urine Microscopic WBC Ur Squamous Epith Cells Urine Bacteria Urine Opiates Screen Negative Urine Methadone Screen Negative Ur Barbiturates Screen Negative Ur Phencyclidine Scrn Negative Ur Amphetamines Screen Negative U Benzodiazepines Scrn Negative U Oth Cocaine Metabols Negative U Cannabinoids Screen Negative Alcohol, Quantitative < 10 11/12/18 20:20 WBC RBC Hgb Hct MCV MCH MCHC RDW Plt Count MPV Neut % (Auto) Lymph % (Auto) Rich % (Auto) Eos % (Auto) Baso % (Auto) Neut # (Auto) Lymph # (Auto) Rich # (Auto) Eos # (Auto) Baso # (Auto) Neutrophils % (Manual) Lymphocytes % (Manual) Monocytes % (Manual) Platelet Estimate Poikilocytosis (manual Anisocytosis (manual) Ovalocytes PT 13.4 H INR 1.2 APTT 73.3 H pCO2 pO2 HCO3 ABG pH ABG Total CO2 ABG O2 Saturation ABG Base Excess [place] Test ABG Potassium VBG pH VBG pCO2 VBG HCO3 VBG Total CO2 VBG O2 Sat (Calc) VBG Base Excess VBG Potassium A-a O2 Difference Glucose Lactate FiO2 Crit Value Called To Crit Value Called By Crit Value Read Back Blood Gas Notified Time Sodium Potassium Chloride Carbon Dioxide Anion Gap BUN Creatinine Est GFR ( Amer) Est GFR (Non-Af Amer) Random Glucose Calcium Phosphorus Magnesium Total Bilirubin AST ALT Alkaline Phosphatase Troponin I NT-Pro-B Natriuret Pep Total Protein Albumin Globulin Albumin/Globulin Ratio Arterial Blood Potassium Venous Blood Potassium Urine Color Urine Clarity Urine pH Ur Specific [place] Urine Protein Urine Glucose (UA) Urine Ketones Urine Blood Urine Nitrate Urine Bilirubin Urine Urobilinogen Ur Leukocyte Esterase Urine RBC (Auto) Urine Microscopic WBC Ur Squamous Epith Cells Urine Bacteria Urine Opiates Screen Urine Methadone Screen Ur Barbiturates Screen Ur Phencyclidine Scrn Ur Amphetamines Screen U Benzodiazepines Scrn U Oth Cocaine Metabols U Cannabinoids Screen Alcohol, Quantitative Assessment & Plan - Assessment and Plan (Free Text) Assessment: 32M with hypertensive emergency and ESRD requiring HD Plan: Written consent obtained. Shiley catheter placed in R IJ, see procedure note below. CXR ordered for f/u. D/W Dr. Parish Pabon PGY4 Procedure Note Date: 11/12/17 Time: 21:15 Indication: Hemodialysis access for ESRD Resident: PGY4 Attending: Parish A time-out was completed verifying correct patient, procedure, site, and positioning. The patient was placed in a supine position appropriate for hemodialysis line placement. The patients right neck was prepped and draped in sterile fashion. 1% Lidocaine was used to anesthetize the surrounding skin area. A Shiley catheter was introduced into the the right internal jugular using the Seldinger technique under ultrasound guidance. The catheter was threaded smoothly over the guide wire and appropriate blood return was obtained. Each ciro men of the catheter was evacuated of air and flushed with sterile saline. The catheter was then sutured in place to the skin and a sterile dressing applied. Estimated Blood Loss: 15cc The patient tolerated the procedure well and there were no complications. CXR was obtained for confirmation of placement. Central Line Placement - Central Line Placement Indication: Emergent IV Access (for hemodialysis) Central Line Placement: Right: Internal Jugular The Area Was Thoroughly Prepared With: Chlorhexidine, Draped Using Sterile Technique Area Was Locally Anesthetized With: Lidocaine 1% Procedure: Double Lumen, Placed Using Standard Seldinger Technique, Catheter Was Sewn Into Place, Sterile Dressing Placed Over Line, Procedure Tolerated Well, CXR Ordered To Confirm Placement
[2018-11-12] MEDS ORDERED: Potassium Chloride 20 mEq ER Tab PO ONE (22:06)
[2018-11-13] MEDS: Ergocalciferol 50,000 Intl Units Cap PO SCH (00:29)
[2018-11-13] MEDS ORDERED: Potassium Chloride 20 mEq ER Tab PO ONE ×3 (00:32→07:37)
[2018-11-13 02:00] VITALS: BMI 26.4
[2018-11-13 05:30] LABS: HEMOGLOBIN 9.5 g/dL (12.0-18.0); MEAN CELL VOLUME 89.1 fl (80.0-94.0); MEAN CORPUSCULAR HEMOGLOBIN 30.5 pg (27.0-31.0); MEAN CORPUSCULAR HGB CONC 34.3 g/dL (33.0-37.0); RBC 3.11 Mil/uL (4.40-5.90); RED CELL DISTRIBUTION WIDTH 13.6 % (11.5-14.5); WHITE BLOOD COUNT 5.4 K/uL (4.8-10.8)
[2018-11-13 05:38] LABS: INR 1.1
[2018-11-13 05:41] LABS: PARTIAL THROMBOPLASTIN TIME 45.3 Seconds (25.6-37.1)
[2018-11-13 05:45] LABS: ALB/GLOB RATIO 1.1 (1.0-2.1); ALBUMIN 3.5 g/dL (3.5-5.0); CALCIUM 6.3 mg/dL (8.4-10.2)
--- NOTE | 2018-11-13 08:32 | RAD ---
Date of service: 11/12/2018 HISTORY: post Shiley placement COMPARISON: No prior. FINDINGS: Right-sided IJV central venous catheter terminates in the right atrium. LUNGS: The lungs are well inflated.There is moderate pulmonary venous congestion. PLEURA: Small pleural effusions. No pneumothorax. CARDIOVASCULAR: There is moderate cardiomegaly and prominent central vasculature. No aortic atherosclerotic calcification present. OSSEOUS STRUCTURES: Within normal limits for the patient's age. VISUALIZED UPPER ABDOMEN: Normal. OTHER FINDINGS: None. IMPRESSION: Right IJV central venous catheter terminates in the right atrium. Congestive heart failure.
--- NOTE | 2018-11-13 08:35 | RAD ---
Date of service: 11/12/2018 HISTORY: possible admission COMPARISON: 09/05/2018. FINDINGS: LUNGS: The lungs are well inflated. There is mild pulmonary venous congestion. PLEURA: Small effusions, larger on the right. No pneumothorax CARDIOVASCULAR: There is severe cardiomegaly. No aortic atherosclerotic calcification present. OSSEOUS STRUCTURES: Within normal limits for the patient's age. VISUALIZED UPPER ABDOMEN: Normal. OTHER FINDINGS: None. IMPRESSION: Severe cardiomegaly, mild pulmonary venous congestion and small effusions, larger on the right, the constellation of findings most compatible with mild congestive heart failure.
--- NOTE | 2018-11-13 08:49 | CON ---
DATE: 11/12/2018 NEPHROLOGY CONSULTATION HISTORY OF PRESENT ILLNESS: This is a 32-year-old male with past medical history of hypertension; recently diagnosed end-stage renal disease, not on dialysis, presented to ED with dyspnea. Nephrology being consulted for need for emergent hemodialysis. The patient was admitted approximately two months ago to [facility] with nearly diagnosed renal failure, was initiated on hemodialysis with plans for renal biopsy; however, the patient refused further dialysis as well as the biopsy and left against medical advice; has since not been taking any medications and has not had any medical followups; now reporting dyspnea on exertion lately; also with leg swelling since the past three days; reports urinating well; also with decreased p.o. intake due to nausea, although with no vomiting. Per record the patient also with blurry vision. In ED, the patient on presentation, blood pressure of 240/164, heart rate 99 with 100% O2 sat on room air; was placed on nicardipine drip as well as given IV doses of hydralazine and labetalol; the patient currently reporting no dyspnea; blood pressure improved significantly with SBP in 120s. PAST MEDICAL HISTORY: As above. SOCIAL HISTORY: Previous smoker. FAMILY HISTORY: The patient denies. REVIEW OF SYSTEMS: CONSTITUTIONAL. Denies any fevers or chills. HEENT: As per HPI. Denies any URI symptoms. RESPIRATORY: As per HPI. CARDIOVASCULAR: Denies any palpitations or chest pains. : As per HPI. No dysuria. MUSCULOSKELETAL: Denies any arthralgias or back pain. Does take any pain medications. SKIN: Denies any pruritus or rash. NEUROLOGIC: Some dizziness per record, although the patient currently denies. PHYSICAL EXAMINATION: VITAL SIGNS: As mentioned SBP currently in 120s, on Cardene drip. GENERAL: No distress. Conversing coherently in full sentences. HEENT: Moist mucous membranes. Nonicteric. No cervical lymphadenopathy. NECK: Elevated JVD to the level of earlobe. RESPIRATORY: Lungs are clear to auscultation bilaterally. No rales. No rhonchi. No wheezes. CARDIOVASCULAR: Heart sounds. S1, S2 normal. No murmurs. No gallops. No rubs. GASTROINTESTINAL: Abdomen is soft, nontender. GENITOURINARY: No overt bladder distention. EXTREMITIES: 2+ pitting bilateral lower leg edema. SKIN: Warm. No cyanosis. NEUROLOGIC: No overt resting tremor. PSYCHIATRIC: Normal mood. Normal affect. LABORATORY DATA: CBC; WBC 7.2, hemoglobin 9.5, hematocrit 28.7, platelets 153. Chemistry panel; sodium 138, potassium 3.2, chloride 104, bicarb 16, BUN 108, creatinine 14.6, glucose 118, calcium 5.9, albumin 3.4, AST 134, ALT 124, alk phos 262, proBNP greater than 35,000, phosphorus 9.6. UA; specific gravity 1.008, protein greater than equal to 500 mg/dL, glucose 50, small blood, 9 wbc's per high-power field. DIAGNOSTIC DATA: Chest x-ray directly visualized, showing increased pulmonary vascular congestion. Renal ultrasound from previous admission showing increased echogenicity of kidneys bilaterally with small kidney sizes. ASSESSMENT AND PLAN: 1. Acute decompensated congestive heart failure. The patient with evidence of volume overload with presentation of hypertensive emergency in the setting of worsening renal function; evidence of diastolic dysfunction on recent echo; currently being treated adequately with nicardipine drip; blood pressure is currently much improved. As the patient is stabilize, we will hold off on initiating emergent hemodialysis tonight and we will plan on initiating dialysis in the morning; goal will be progressive ultrafiltration; giving 3 mg Bumex IV push x1 tonight. Continue nicardipine drip and titrate with goal of achieving systolic blood pressures at 160s. 2. End-stage renal disease, the patient not on hemodialysis since approximately two months; has relatively stable electrolyte status with moderate metabolic acidosis noted; actually has mild hypokalemia; the patient's worsening of renal function off dialysis as well as ultrasound showing echogenic kidneys of small sizes is also consistent with end-stage renal disease status. The patient counseled in depth about need for adhering to regular dialysis regimen. Temporary internal jugular catheter placed by Surgery, most appreciated. We will initiate hemodialysis in the morning with slowly progressive blood flows to avoid dialysis disequilibrium. We will have IR convert internal jugular catheter to tunneled line; we will need vein mapping as well as arteriovenous fistula creation. Role of renal biopsy is very limited given findings of chronicity of disease. The patient does have evidence of nephrotic syndrome with over 7 g of proteinuria on 24-hour collection as well as hypoalbuminemia. The patient did have low C3, although antinuclear antibody was negative. 3. Hypertensive emergency, see above. The patient needs volume removal via hemodialysis. I agree with starting on hydralazine p.o. and Coreg p.o. as we titrate down nicardipine drip; 4. Chronic kidney disease mineral bone disorder, the patient with secondary hyperparathyroidism of chronic kidney disease with PTH of 320, seen two months ago; currently with hypophosphatemia and hypocalcemia. We will start the patient on calcitriol 0.5 mg daily as well as PhosLo two tablets with each meal. 5. Anemia of renal disease. Previous iron sat was low. We will give IV iron and start EPO once blood pressure is well controlled. Thank you for this referral. We will be following closely. Janak Yang MD
--- NOTE | 2018-11-13 08:51 | CP.PCM.PN ---
<Yudith Holguin - Last Filed: 11/13/18 10:42> Subjective - Date & Time of Evaluation Date of Evaluation: 11/13/18 Time of Evaluation: 09:55 - Subjective Subjective: Pt seen/examined at bedside, was receiving HD. No acute distress, appears comfortable. States his blurry vision resolved. Discussed with patient in simple/easy to understand terms that his kidneys do not clean his blood well enough, and he needs to get dialysis 3x a week in order to stay alive. Pt stated he understood. Objective - Vital Signs/Intake and Output Vital Signs (last 24 hours): Temp Pulse Resp BP Pulse Ox 97.7 F 78 21 178/116 H 97 11/13/18 08:00 11/13/18 08:00 11/13/18 08:00 11/13/18 08:00 11/13/18 08:00 Intake and Output: 11/13/18 11/13/18 06:59 18:59 Intake Total 250 0 Output Total 1200 400 Balance -950 -400 - Medications Medications: Current Medications Calcitriol (Rocaltrol) 0.5 mcg PO DAILY [facility] Last Admin: 11/13/18 00:30 Dose: 0.5 mcg Calcium Acetate (Phoslo) 1,334 mg PO WM [facility] Last Admin: 11/13/18 00:30 Dose: 1,334 mg Carvedilol (Coreg) 6.25 mg PO Q12 [facility] Last Admin: 11/13/18 00:31 Dose: Not Given Ergocalciferol (Drisdol 50,000 Intl Units Cap) 1 cap PO Q7D [facility] Last Admin: 11/13/18 00:29 Dose: 1 cap Hydralazine HCl (Apresoline) 10 mg PO TID [facility] Last Admin: 11/13/18 00:31 Dose: Not Given Sevelamer HCl (Renagel) 800 mg PO TID [facility] Vitamin B Complex/Vit C/Folic Acid (Nephro-Yuridia) 1 tab PO DAILY [facility] - Labs Labs: 11/13/18 04:30 11/13/18 04:30 PT 12.0 Seconds (9.8-13.1) 11/13/18 04:30 INR 1.1 11/13/18 04:30 APTT 45.3 Seconds (25.6-37.1) H 11/13/18 04:30 - Constitutional Appears: No Acute Distress - Head Exam Head Exam: NORMAL INSPECTION - Eye Exam Eye Exam: Normal appearance - ENT Exam ENT Exam: Mucous Membranes Moist - Neck Exam Additional comments: Right IJ shiley in place - Respiratory Exam Respiratory Exam: Clear to Ausculation Bilateral, NORMAL BREATHING PATTERN - Cardiovascular Exam Cardiovascular Exam: REGULAR RHYTHM, +S1, +S2 - GI/Abdominal Exam GI & Abdominal Exam: Soft, Normal Bowel Sounds. absent: Tenderness - Extremities Exam Extremities Exam: Normal Inspection. absent: Calf Tenderness - Neurological Exam Neurological Exam: Alert, Oriented x3 - Psychiatric Exam Psychiatric exam: Flat Affect - Skin Skin Exam: Dry, Warm Assessment and Plan - Assessment and Plan (Free Text) Assessment: 32 yo M with hx hypertension, prior dx ESRD (with refusal of kidney biopsy and permanent dialysis access placement), admitted for hypertensive emergency and requiring hemodialysis. BP was stabilized with labetalol, hydralazine and nicardipine drip. Blurred vision resolved. On admission: BUN 108, Cr 14.6; Labs showed Ca 5.9, Phos 9.6, Mg 1.9; T ransaminitis, proBNP > 02531 Right IJ shiley placed on admission; for HD today. Plan: ESRD requiring hemodialyis - Nephrology: Dr. Yang; for HD; additional recs appreciated; started bumex - Calcitriol, calcium acetate, ergocalciferol, sevelamer, venofer - HD today Hypertensive emergency - BP improved in ED - Elevated proBNP; cardiology consulted, Dr. Hamlin - Continue with Hydralazine 10 mg PO TID, Carvedilol 6.25 mg BID - Monitor for worsening of symptoms/end organ damage, vitals Anemia - H/H: 9.5/28.7 - normocytic; likely 2/2 ESRD - monitor CBC Hypokalemia - 3.4 - f/u CMP Hypocalcemia - 6.3 - Phos: 9.2 - HD today Transaminitis - Improvin - AST: 134 --> 69 - ALT: 124---> 112 - Alk Phos: 262--> 257 - ETOH: <10 - Utox: negative - Trend and monitor DVT prophylaxis - SCDs <Edne Mai - Last Filed: 11/13/18 15:53> Objective - Vital Signs/Intake and Output Vital Signs (last 24 hours): Temp Pulse Resp BP Pulse Ox 98.1 F 76 16 179/114 H 100 11/13/18 12:00 11/13/18 12:00 11/13/18 12:00 11/13/18 12:34 11/13/18 12:00 Intake and Output: 11/13/18 11/13/18 06:59 18:59 Intake Total 250 480 Output Total 1200 700 Balance -950 -220 - Medications Medications: Current Medications Calcitriol (Rocaltrol) 0.5 mcg PO DAILY [facility] Last Admin: 11/13/18 08:57 Dose: 0.5 mcg Calcium Acetate (Phoslo) 1,334 mg PO WM [facility] Last Admin: 11/13/18 12:35 Dose: 1,334 mg Carvedilol (Coreg) 6.25 mg PO Q12 [facility] Last Admin: 11/13/18 08:57 Dose: 6.25 mg Clonidine HCl (Catapres) 0.2 mg PO BID [facility] Ergocalciferol (Drisdol 50,000 Intl Units Cap) 1 cap PO Q7D [facility] Last Admin: 11/13/18 00:29 Dose: 1 cap Hydralazine HCl (Apresoline) 10 mg PO TID [facility] Last Admin: 11/13/18 12:34 Dose: 10 mg Hydralazine HCl (Apresoline) 10 mg IV Q6 PRN PRN Reason: Systolic Blood Pressure Last Admin: 11/13/18 12:34 Dose: 10 mg Sevelamer HCl (Renagel) 800 mg PO TID [facility] Last Admin: 11/13/18 12:35 Dose: 800 mg Vitamin B Complex/Vit C/Folic Acid (Nephro-Yuridia) 1 tab PO DAILY [facility] Last Admin: 11/13/18 08:57 Dose: 1 tab - Labs Labs: 11/13/18 04:30 11/13/18 04:30 PT 12.0 Seconds (9.8-13.1) 11/13/18 04:30 INR 1.1 11/13/18 04:30 APTT 45.3 Seconds (25.6-37.1) H 11/13/18 04:30 Attending/Attestation - Attestation I have personally seen and examined this patient.: Yes I have fully participated in the care of the patient.: Yes I have reviewed all pertinent clinical information, including history, physical exam and plan: Yes Notes (Text): 11/13/18 15:50 ESRD , requiring HD - Shiley cath placed, HD started - plan for permacath placement by IR HTN Emergency cont Hydralazine PO - Dr Hamlin increased Clonidine to 0.2 ng bid - IV hydralazine 10mg prn for BP greater than 170 syst Anemia of Chronic Renal Dis - cont Epogen
[2018-11-13] MEDS: Multivitamin Vitamin B Complex (Nephro-Vite) Tab PO SCH (08:57)
[2018-11-13] MEDS ORDERED: Epoetin Alfa 4000 UNIT/ML Inj IV SCH (09:00)
--- NOTE | 2018-11-13 11:07 | CT ---
Date of service: 11/12/2018 PROCEDURE: CT HEAD WITHOUT CONTRAST. HISTORY: blurry vision COMPARISON: None available. TECHNIQUE: Axial computed tomography images were obtained through the head/brain without intravenous contrast. Radiation dose: Total exam DLP = 873.02 mGy-cm. This CT exam was performed using one or more of the following dose reduction techniques: Automated exposure control, adjustment of the mA and/or kV according to patient size, and/or use of iterative reconstruction technique. FINDINGS: HEMORRHAGE: No intracranial hemorrhage. BRAIN: Morgan-white matter differentiation is preserved. There is no mass, mass effect or abnormal extra-axial fluid collection. There is no territorial infarction. The midline sagittal structures are normal. VENTRICLES: There is mild global parenchymal volume loss and proportionate enlargement of the cortical sulci and ventricles, advanced for the patient's age. CALVARIUM: There is no calvarial fracture or extracranial soft tissue swelling. PARANASAL SINUSES: Predominantly clear. MASTOID AIR CELLS: Predominantly clear. OTHER FINDINGS: None. IMPRESSION: No acute intracranial abnormality. A preliminary report was provided by [facility].
[2018-11-13 11:56] LABS: COMPLEMENT C4 35.7 mg/dL (14.0-44.0)
--- NOTE | 2018-11-13 17:23 | CARD ---
APPROVED REPORT Date of service: 11/13/2018 EXAM: Two-dimensional and M-mode echocardiogram with Doppler and color Doppler. Other Information Quality : ExcellentRhythm : NSR INDICATION Pericardial Effusion Pleural Effusion 2D DIMENSIONS IVSd1.42 (0.7-1.1cm)LVDd5.00 (3.9-5.9cm) LVOT Diameter2.40 (1.8-2.4cm)PWd1.65 (0.7-1.1cm) IVSs1.72 (0.8-1.2cm)LVDs3.87 (2.5-4.0cm) FS (%) 22.7 %PWs2.03 (0.8-1.2cm) M-Mode DIMENSIONS Left Atrium (MM)4.38 (2.5-4.0cm)IVSd1.65 (0.7-1.1cm) Aortic Root3.12 (2.2-3.7cm)LVDd5.44 (4.0-5.6cm) Aortic Cusp Exc.2.21 (1.5-2.0cm)PWd1.47 (0.7-1.1cm) IVSs2.00 cmFS (%) 30 % LVDs3.82 (2.0-3.8cm)PWs2.00 cm Aortic Valve AoV Peak Sxpifpxs448.3cm/sAoV VTI20.2cmAO Peak GR.5mmHg LVOT Peak Dlutpucp211.4cm/sLVOT VTI18.06cmAO Mean GR.3mmHg Mitral Valve MV E Lmmfamkv67.3cm/sMV DECEL [id number] A Syorueox35.2cm/s MV GJK01idF/A ratio1.8MVA (PHT)5.55cm2 TDI Lateral E' Peak V8.07cm/sMedial E' Peak V7.33cm/sE/Lateral E'11.6 E/Medial E'12.7 Tricuspid Valve TR Peak Hcndfldj406oy/sRAP [id number] Peak Gr.37mmHg [id number] LEFT VENTRICLE The left ventricle is normal size. There is mild to moderate concentric left ventricular hypertrophy. The left ventricular systolic function is low normal. The estimated ejection fraction is 50-55% No regional wall motion abnormalities noted.. Transmitral Doppler flow pattern is Grade II-pseudonormal filling dynamics. No left ventricle thrombus noted on this study. There is no ventricular septal defect visualized. There is no left ventricular aneurysm. There is no mass noted in the left ventricle. RIGHT VENTRICLE The right ventricle is normal size. There is normal right ventricular wall thickness. The right ventricular systolic function is normal. ATRIA The left atrium is mildly dilated. The right atrium size is normal. The interatrial septum is intact with no evidence for an atrial septal defect. AORTIC VALVE The aortic valve is normal in structure. No aortic regurgitation is present. There is no aortic valvular stenosis. There is no aortic valvular vegetation. MITRAL VALVE The mitral valve is normal in structure. There is no evidence of mitral valve prolapse. There is no mitral valve stenosis. There is mild mitral valve regurgitation noted. TRICUSPID VALVE The tricuspid valve is normal in structure. There is mild tricuspid valve regurgitation noted. RVSP is calculated at 41 mm Hg. There is no tricuspid valve prolapse or vegetation. There is no tricuspid valve stenosis. PULMONIC VALVE The pulmonary valve is normal in structure. There is trace pulmonic valvular regurgitation. There is no pulmonic valvular stenosis. GREAT VESSELS The aortic root is normal in size. The ascending aorta is normal in size. The pulmonary artery is normal. The IVC is normal in size and collapses >50% with inspiration. PERICARDIAL EFFUSION There is moderate pericardial effusion with no signs of tamponade. There is no pleural effusion. <Conclusion> There is mild to moderate concentric left ventricular hypertrophy. The left ventricular systolic function is low normal. The estimated ejection fraction is 50-55% Transmitral Doppler flow pattern is Grade II-pseudonormal filling dynamics. The left atrium is mildly dilated. There is mild mitral valve regurgitation noted. There is mild tricuspid valve regurgitation noted. RVSP is calculated at 41 mm Hg. There is moderate pericardial effusion with no signs of tamponade. Correlate clinically.
--- NOTE | 2018-11-13 18:11 | CARD ---
APPROVED REPORT Date of service: 11/12/2018 EKG Measurement Heart [id number] <Conclusion> Normal sinus rhythm ST & T wave abnormality, consider anterolateral ischemia Prolonged QT Abnormal ECG
--- NOTE | 2018-11-13 19:05 | PN ---
DATE: 11/13/2018 CRITICAL CARE PROGRESS NOTE LOCATION: The patient is in ICU, bed 430. TIME SPENT: 35 minutes. SUBJECTIVE: The patient is seen and evaluated at the bedside. Past medical, surgical, family and social history reviewed. Case discussed in multidisciplinary ICU rounds this morning. A 32-year-old male with hypertension, and end stage renal disease. Admitted in August with hypertensive emergency and found to be in renal failure. Had dialysis. Noncompliant with medications. Admitted to emergency room complaining of dizziness, blurring of vision and swelling of the face. Noted to be in acute renal failure. Had emergent dialysis. Remains alert, awake, follows commands appropriate. Denies some headache, shortness of breath, chest pain, or palpitation. No abdominal discomfort. No diarrhea. No dysuria. Adequate urine output noted. PHYSICAL EXAMINATION: VITAL SIGNS: Temperature 97.7, heart rate 78, blood pressure 184/123, oxygen saturation 100% on room air. Intake 250, output 1200, negative balance 950, status post dialysis. Weight 168 pounds. HEAD, EYES, EARS, NOSE AND THROAT: Pupils are reactive. Conjunctivae pale. Sclerae white. NECK: Supple. Trachea is central. CHEST: Bilateral breath sounds. Bibasilar crackles. HEART: Rhythm regular. S1, S2 normal. No audible murmur. ABDOMEN: Bowel sounds present. Soft. Not distended. EXTREMITIES: 1+ edema. DP palpable. Capillary refill less than 2 seconds. NEUROLOGIC: Nonfocal. CURRENT MEDICATIONS: Calcitrol 0.5 mcg by mouth daily, calcium acetate (PhosLo) 1334 mg by mouth ___, Coreg 6.25 mg every 12 hours, ergocalciferol one capsule every week, hydralazine 10 mg by mouth three times daily, Epsolin 10 mg intravenous every 6 hours as needed for systolic blood pressure more than 140, Renagel 100 mg three times daily, Nephro-Yuridia one tablet by mouth daily.. LABORATORY DATA: WBC 5.4, hemoglobin 9.5, hematocrit 27.7, platelet count 165. PT 12, INR 1.1, PTT 45.3. ABG pH 7.36, pCO2 of 22, pO2 of 93 on room air 21%. SMA-7: Sodium 138, potassium 3.4, chloride 104, CO2 of 13, blood urea nitrogen 109, creatinine 14.7, albumin 3.5 . AST 69, ALT 112. Urinalysis negative. Toxicology screen negative, C3 of 80 and C4 of 35.7. Microbiology none reported. Chest -x-ray done on 11/12/2017 shows moderate cardiomegaly, prominent central vasculature. Moderate pulmonary venous congestion. Right IJ hemodialysis catheter in place. CT of head, no acute intracranial abnormality. IMPRESSION: 1. Neurologic: Alert, awake, mild arrhythmic encephalopathy improved after the dialysis. 2. Cardiac: Accelerated hypertension. Maintain blood pressure below 160. Continue current antihypertensive medications. Appreciate cardiology recommendation. 3. Pulmonary: Chest x-ray consistent with pulmonary vascular congestion secondary to fluid overload from renal failure. 4. Hematology: Anemia from chronic disease, hemoglobin stable. 5. Renal: Acute renal failure secondary to hypertensive nephrosclerosis. Continue hemodialysis as per renal consult. 6. Gastrointestinal: Abnormal liver function test secondary to hepatic congestion. We will review the previous workup to rule out any hepatitis C or B serology. 7. Endocrinology: No acute issues. Keep head of bed 30 degrees up. No need for gastrointestinal prophylaxis. Igor Vega MD
--- NOTE | 2018-11-13 22:00 | CP.PCM.PN ---
Subjective - Date & Time of Evaluation Date of Evaluation: 11/13/18 Time of Evaluation: 12:00 - Subjective Subjective: Patient tolerated HD session well today; denies any sob; tolerating diet; no nausea/vomiting; urinating well; Objective - Vital Signs/Intake and Output Vital Signs (last 24 hours): Temp Pulse Resp BP Pulse Ox 97.7 F 75 17 146/88 97 11/13/18 20:00 11/13/18 20:58 11/13/18 20:00 11/13/18 20:58 11/13/18 20:00 Intake and Output: 11/13/18 11/14/18 18:59 06:59 Intake Total 960 0 Output Total 2700 Balance -1740 0 - Medications Medications: Current Medications Calcitriol (Rocaltrol) 0.5 mcg PO DAILY [facility] Last Admin: 11/13/18 08:57 Dose: 0.5 mcg Calcium Acetate (Phoslo) 1,334 mg PO WM [facility] Last Admin: 11/13/18 17:32 Dose: 1,334 mg Carvedilol (Coreg) 6.25 mg PO Q12 [facility] Last Admin: 11/13/18 20:58 Dose: 6.25 mg Clonidine HCl (Catapres) 0.2 mg PO BID [facility] Last Admin: 11/13/18 16:21 Dose: 0.2 mg Ergocalciferol (Drisdol 50,000 Intl Units Cap) 1 cap PO Q7D [facility] Last Admin: 11/13/18 00:29 Dose: 1 cap Hydralazine HCl (Apresoline) 10 mg IV Q6 PRN PRN Reason: Systolic Blood Pressure Last Admin: 11/13/18 17:31 Dose: 10 mg Hydralazine HCl (Apresoline) 25 mg PO Q6H [facility] Sevelamer HCl (Renagel) 800 mg PO TID [facility] Last Admin: 11/13/18 16:25 Dose: 800 mg Vitamin B Complex/Vit C/Folic Acid (Nephro-Yuridia) 1 tab PO DAILY [facility] Last Admin: 11/13/18 08:57 Dose: 1 tab - Labs Labs: 11/13/18 04:30 11/13/18 04:30 PT 12.0 Seconds (9.8-13.1) 11/13/18 04:30 INR 1.1 11/13/18 04:30 APTT 45.3 Seconds (25.6-37.1) H 11/13/18 04:30 - Constitutional Appears: Non-toxic, No Acute Distress - Eye Exam Eye Exam: Normal appearance - ENT Exam ENT Exam: Mucous Membranes Moist - Respiratory Exam Respiratory Exam: Clear to Ausculation Bilateral. absent: Respiratory Distress - Cardiovascular Exam Cardiovascular Exam: JVD, RRR, +S1, +S2 - GI/Abdominal Exam GI & Abdominal Exam: Soft. absent: Distended, Tenderness - Extremities Exam Additional comments: moderate b/l lower leg edema; - Neurological Exam Neurological Exam: Alert, Awake - Psychiatric Exam Psychiatric exam: Normal Mood. absent: Agitated - Skin Skin Exam: Warm. absent: Cyanosis Assessment and Plan (1) ESRD (end stage renal disease) Assessment & Plan: Re-started on HD today slowly to prevent dialysis dysequilibrium given that patient hasn't had HD in ~2 months; still evidence of volume overload but stable respiratory status; profound metabolic acidosis from renal failure; moderate pericardial effusion without tamponade noted, like uremic in etiology and will need daily dialysis for next few days to treat; -next HD for tomorrow with increased blood flow rate; -will discuss with social media project manager for outpatient HD placement (patient again advised not to leave AMA before this is setup); -avoid nephrotoxic agents to preserve residual renal function; -will have IR convert temp IJ to tunneled HD cath; -will need vasc surgery for AVF creation; Status: Acute (2) Hypertensive emergency Assessment & Plan: Off nicardipine drip; started on clonidine 0.2 bid, coreg 6.25 bid and hydralazine; will increase hydralazine to 25 mg q6h; giving dose of IV bumex 3 mg once; Status: Acute (3) Anemia of renal disease Assessment & Plan: Hgb slightly below goal (10-11g); will hold off on giving EPO until BP better controlled; Status: Acute (4) Chronic kidney disease-mineral and bone disorder Assessment & Plan: Hypocalcemia in the setting of CKD mineral bone disorder; -awaiting PTH level; continue calcitriol and ergocalciferol; -phoslo 2 tabs w/ meals; -should not supplement with IV calcium unless patient is symptomatic/ECG changes; Status: Acute (5) CHF (congestive heart failure) Assessment & Plan: With evidence of diastolic dysfunction; will benefit from aggressive BP control and volume removal on HD; Status: Acute
--- NOTE | 2018-11-14 00:42 | CON ---
DATE: 11/13/2018 CARDIOLOGY CONSULT REASON FOR CONSULTATION: Hypertension. HISTORY OF PRESENT ILLNESS: The patient is a 32-year-old male who has advanced renal insufficiency, signed against medical advice few months ago, and refused hemodialysis. He presented because of blurry vision and shortness of breath, and patient was found to have advanced renal insufficiency and hemodialysis was initiated in ICU. Initial blood pressure in the ER was 240/164. The patient denies any retrosternal chest pain. SOCIAL HISTORY: Nonsmoker. 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 MEDICATIONS: Hydralazine 10 mg three times daily, Coreg 6.25 mg twice a day, PhosLo 1334 mg p.o. with meal, Renagel 800 mg t.i.d., Rocaltrol 0.5 mg daily. PHYSICAL EXAMINATION: GENERAL: The patient is a young middle aged male, who does not appear to be in any distress. VITAL SIGNS: Blood pressure 117/74, heart rate 68, temperature 98.2, respirations 15. HEENT: Pale conjunctivae. CHEST: Absent breath sounds over the bases. HEART: S1, S2 regular. ABDOMEN: Soft. EXTREMITIES: No edema. LABORATORY DATA: Today's hemoglobin and hematocrit 9.5 and 27.7. White count and platelet count are within limits. Today's SMA-7: Sodium 138, potassium 3.4, chloride 105, CO2 of 13, glucose 104, BUN 109, creatinine 14.7. Urine drug screen is negative. PTT 45.3. EKG revealed sinus rhythm at rate of 85, inferior Q waves were noted. Q-wave abnormalities, consider anterolateral ischemia, prolonged QT interval. Head CT scan without contrast, no acute intracranial findings. Chest x-ray revealed cardiomegaly with mild CHF. Echocardiographic study performed in August of last year revealed ejection fraction in the range of 50% to 55%, grade 2 abnormal relaxation pattern, [id number] pericardial effusion. ASSESSMENT: 1. Advanced renal insufficiency. 2. Borderline left ventricular systolic function. 3. [id number] pericardial effusion. 4. Uncontrolled hypertension. RECOMMENDATIONS: Continue hydralazine 10 mg three times daily, Coreg 6.25 mg twice a day. Start clonidine 0.2 mg three times daily. Obtain repeat echocardiographic study. Jeovany Hamlin MD [facility] # [id number]
[2018-11-14 05:53] LABS: BASO # 0.1 K/uL (0.0-0.2); BASO % 1.2 % (0.0-2.0); EOS # 0.2 K/uL (0.0-0.7); LYMPH # 0.9 K/uL (1.0-4.3); LYMPH % 14.5 % (20.0-40.0); MEAN CELL VOLUME 88.7 fl (80.0-94.0); MEAN CORPUSCULAR HEMOGLOBIN 30.3 pg (27.0-31.0); MEAN CORPUSCULAR HGB CONC 34.1 g/dL (33.0-37.0); MEAN PLATELET VOLUME 8.4 fl (7.2-11.7); MONO # 0.5 K/uL (0.0-0.8); MONO % 8.7 % (0.0-10.0); NEUT # 4.4 K/uL (1.8-7.0); NEUT % 72.6 % (50.0-75.0); RBC 2.65 Mil/uL (4.40-5.90); RED CELL DISTRIBUTION WIDTH 14.1 % (11.5-14.5)
[2018-11-14 06:30] LABS: ALBUMIN 2.6 g/dL (3.5-5.0); CALCIUM 6.7 mg/dL (8.4-10.2)
--- NOTE | 2018-11-14 07:34 | CP.CCUPN ---
CCU Subjective - Physician Review Subjective (Free Text): 11/14/18 12:56 The patient was Seen/interviewed and examined by me at the bedside during ICU round, Medical records reviewed and Management issues were discussed and formulated with the house staff. Events reviewed Mr Abreu is a 32 Years old Male with PMHx of HTN and end-stage renal failure Who presented to the Emergency department for evaluation of worsening blurry vision for 2 days. He was admitted to the ICU for management of Hypertensive emergency, BP in ED: 220/164 This morning he feels well and is hemodynamically stable, denies any chest pain or SOB BP better controlled and the plan is to transfer out of the ICU. Scheduled for permacath placement today by IR CCU Objective - Vital Signs / Intake & Output Vital Signs (Last 4 hours): Vital Signs Temp Pulse Resp BP Pulse Ox 11/14/18 06:00 73 18 162/90 H 98 11/14/18 05:00 75 17 161/82 H 98 11/14/18 04:00 97.8 F 76 15 161/79 H 96 Intake and Output (Last 8hrs): Intake & Output 11/13/18 11/14/18 11/14/18 22:59 06:59 14:59 Intake Total 480 50 Output Total 1100 Balance 480 -1050 Weight 162 lb 9.6 oz Intake: IV 0 0 Oral 480 50 Output: Urine 1100 Urine, Voided 1100 Other: # Voids Urine, Voided 2 2 - Physical Exam Head: Positive for: Atraumatic, Normocephalic Pupils: Positive for: PERRL Extroacular Muscles: Positive for: EOMI Conjunctiva: Positive for: Normal Mouth: Positive for: Moist Mucous Membranes Neck: Positive for: Normal Range of Motion, Trachea Midline. Negative for: Meningeal Signs, MIDLINE TENDERNESS, Paraspinal Tenderness, JVD, Lymphadenopathy, Bruit, Other Respiratory/Chest: Positive for: Clear to Auscultation, Good Air Exchange. Negative for: Respiratory Distress, Accessory Muscle Use, Wheezes, Rales, Rhonchi Cardiovascular: Positive for: Regular Rate and Rhythm, Normal S1, S2, Peripheal Pulses Present. Negative for: Murmurs Abdomen: Positive for: Normal Bowel Sounds. Negative for: Tenderness, Distention Neurological: Positive for: GCS=15, CN II-XII Intact, Speech Normal, Motor Func Grossly Intact, Normal Sensory Function Psychiatric: Positive for: Alert, Oriented x 3, Normal Insight - Medications Active Medications: Active Medications Generic Name Dose Route Start Last Admin Trade Name Freq PRN Reason Stop Dose Admin Calcitriol 0.5 mcg 11/12/18 23:05 11/13/18 08:57 Rocaltrol PO 0.5 mcg DAILY JM Administration Calcium Acetate 1,334 mg 11/13/18 07:30 11/13/18 17:32 Phoslo PO 1,334 mg WM JM Administration Carvedilol 6.25 mg 11/12/18 21:15 11/13/18 20:58 Coreg PO 6.25 mg Q12 JM Administration Clonidine HCl 0.2 mg 11/13/18 17:00 11/13/18 16:21 Catapres PO 0.2 mg BID JM Administration Ergocalciferol 1 cap 11/12/18 23:30 11/13/18 00:29 Drisdol 50,000 Intl Units Cap PO 1 cap Q7D JM Administration Hydralazine HCl 10 mg 11/13/18 11:53 11/13/18 17:31 Apresoline IV 10 mg Q6 PRN Administration Systolic Blood Pressure Hydralazine HCl 25 mg 11/13/18 18:00 11/14/18 06:00 Apresoline PO 25 mg Q6H JM Administration Potassium Chloride 20 meq 11/14/18 09:00 K-Dur 20 Meq Er Tab PO BID JM Sevelamer HCl 800 mg 11/13/18 09:00 11/13/18 16:25 Renagel PO 800 mg TID JM Administration Vitamin B Complex/Vit C/Folic Acid 1 tab 11/13/18 09:00 11/13/18 08:57 Nephro-Yuridia PO 1 tab DAILY JM Administration - Patient Studies Lab Studies: Lab Studies 11/14/18 11/14/18 11/13/18 Range/Units 04:30 04:30 09:51 WBC 6.0 (4.8-10.8) K/uL RBC 2.65 L (4.40-5.90) Mil/uL Hgb 8.0 L (12.0-18.0) g/dL Hct 23.5 L (35.0-51.0) % MCV 88.7 (80.0-94.0) fl MCH 30.3 (27.0-31.0) pg MCHC 34.1 (33.0-37.0) g/dL RDW 14.1 (11.5-14.5) % Plt Count 134 (130-400) K/uL MPV 8.4 (7.2-11.7) fl Neut % (Auto) 72.6 (50.0-75.0) % Lymph % (Auto) 14.5 L (20.0-40.0) % Waldo % (Auto) 8.7 (0.0-10.0) % Eos % (Auto) 3.0 (0.0-4.0) % Baso % (Auto) 1.2 (0.0-2.0) % Neut # (Auto) 4.4 (1.8-7.0) K/uL Lymph # (Auto) 0.9 L (1.0-4.3) K/uL Waldo # (Auto) 0.5 (0.0-0.8) K/uL Eos # (Auto) 0.2 (0.0-0.7) K/uL Baso # (Auto) 0.1 (0.0-0.2) K/uL Sodium 136 (132-148) mmol/l Potassium 3.2 L (3.6-5.0) MMOL/L Chloride 107 (98-107) mmol/L Carbon Dioxide 18 L (22-30) mmol/L Anion Gap 14 (10-20) BUN 86 H (9-20) mg/dl Creatinine 12.3 H* (0.8-1.5) mg/dl Est GFR ( Amer) 6 Est GFR (Non-Af Amer) 5 Random Glucose 88 (75-110) mg/dL Calcium 6.7 L (8.4-10.2) mg/dL Magnesium 1.8 (1.6-2.3) MG/DL Total Bilirubin 0.1 L (0.2-1.3) mg/dl AST 23 (17-59) U/L ALT 72 D (21-72) U/L Alkaline Phosphatase 170 H D (38-126) U/L Total Protein 5.2 L (6.3-8.2) G/DL Total Protein (PEP) (6.1-8.1) g/dL Albumin 2.6 L D (3.5-5.0) g/dL Globulin 2.7 (2.2-3.9) gm/dL Albumin/Globulin Ratio 1.0 (1.0-2.1) Complement C3 (88.0-165.0) mg/dL Complement C4 (14.0-44.0) mg/dL Hep Bs Antigen (NEGATIVE) Hep Bs Antibody Negative (NEGATIVE) Hep B Core IgM Ab (NEGATIVE) 11/13/18 11/13/18 11/13/18 Range/Units 09:51 09:14 04:30 WBC (4.8-10.8) K/uL RBC (4.40-5.90) Mil/uL Hgb (12.0-18.0) g/dL Hct (35.0-51.0) % MCV (80.0-94.0) fl MCH (27.0-31.0) pg MCHC (33.0-37.0) g/dL RDW (11.5-14.5) % Plt Count (130-400) K/uL MPV (7.2-11.7) fl Neut % (Auto) (50.0-75.0) % Lymph % (Auto) (20.0-40.0) % Waldo % (Auto) (0.0-10.0) % Eos % (Auto) (0.0-4.0) % Baso % (Auto) (0.0-2.0) % Neut # (Auto) (1.8-7.0) K/uL Lymph # (Auto) (1.0-4.3) K/uL Waldo # (Auto) (0.0-0.8) K/uL Eos # (Auto) (0.0-0.7) K/uL Baso # (Auto) (0.0-0.2) K/uL Sodium (132-148) mmol/l Potassium (3.6-5.0) MMOL/L Chloride (98-107) mmol/L Carbon Dioxide (22-30) mmol/L Anion Gap (10-20) BUN (9-20) mg/dl Creatinine (0.8-1.5) mg/dl Est GFR ( Amer) Est GFR (Non-Af Amer) Random Glucose (75-110) mg/dL Calcium (8.4-10.2) mg/dL Magnesium (1.6-2.3) MG/DL Total Bilirubin (0.2-1.3) mg/dl AST (17-59) U/L ALT (21-72) U/L Alkaline Phosphatase (38-126) U/L Total Protein (6.3-8.2) G/DL Total Protein (PEP) (6.1-8.1) g/dL Albumin (3.5-5.0) g/dL Globulin (2.2-3.9) gm/dL Albumin/Globulin Ratio (1.0-2.1) Complement C3 80.0 L (88.0-165.0) mg/dL Complement C4 35.7 (14.0-44.0) mg/dL Hep Bs Antigen Negative (NEGATIVE) Hep Bs Antibody (NEGATIVE) Hep B Core IgM Ab Negative (NEGATIVE) 11/13/18 Range/Units 04:30 WBC (4.8-10.8) K/uL RBC (4.40-5.90) Mil/uL Hgb (12.0-18.0) g/dL Hct (35.0-51.0) % MCV (80.0-94.0) fl MCH (27.0-31.0) pg MCHC (33.0-37.0) g/dL RDW (11.5-14.5) % Plt Count (130-400) K/uL MPV (7.2-11.7) fl Neut % (Auto) (50.0-75.0) % Lymph % (Auto) (20.0-40.0) % Waldo % (Auto) (0.0-10.0) % Eos % (Auto) (0.0-4.0) % Baso % (Auto) (0.0-2.0) % Neut # (Auto) (1.8-7.0) K/uL Lymph # (Auto) (1.0-4.3) K/uL Waldo # (Auto) (0.0-0.8) K/uL Eos # (Auto) (0.0-0.7) K/uL Baso # (Auto) (0.0-0.2) K/uL Sodium (132-148) mmol/l Potassium (3.6-5.0) MMOL/L Chloride (98-107) mmol/L Carbon Dioxide (22-30) mmol/L Anion Gap (10-20) BUN (9-20) mg/dl Creatinine (0.8-1.5) mg/dl Est GFR ( Amer) Est GFR (Non-Af Amer) Random Glucose (75-110) mg/dL Calcium (8.4-10.2) mg/dL Magnesium (1.6-2.3) MG/DL Total Bilirubin (0.2-1.3) mg/dl AST (17-59) U/L ALT (21-72) U/L Alkaline Phosphatase (38-126) U/L Total Protein (6.3-8.2) G/DL Total Protein (PEP) 5.8 L (6.1-8.1) g/dL Albumin (3.5-5.0) g/dL Globulin (2.2-3.9) gm/dL Albumin/Globulin Ratio (1.0-2.1) Complement C3 (88.0-165.0) mg/dL Complement C4 (14.0-44.0) mg/dL Hep Bs Antigen (NEGATIVE) Hep Bs Antibody (NEGATIVE) Hep B Core IgM Ab (NEGATIVE) Laboratory Results - last 24 hr 11/13/18 11/13/18 11/13/18 04:30 04:30 09:14 WBC RBC Hgb Hct MCV MCH MCHC RDW Plt Count MPV Neut % (Auto) Lymph % (Auto) Waldo % (Auto) Eos % (Auto) Baso % (Auto) Neut # (Auto) Lymph # (Auto) Waldo # (Auto) Eos # (Auto) Baso # (Auto) Sodium Potassium Chloride Carbon Dioxide Anion Gap BUN Creatinine Est GFR ( Amer) Est GFR (Non-Af Amer) Random Glucose Calcium Magnesium Total Bilirubin AST ALT Alkaline Phosphatase Total Protein Total Protein (PEP) 5.8 L Albumin Globulin Albumin/Globulin Ratio Complement C3 80.0 L Complement C4 35.7 Hep Bs Antigen Negative Hep Bs Antibody Hep B Core IgM Ab 11/13/18 11/13/18 11/14/18 09:51 09:51 04:30 WBC 6.0 RBC 2.65 L Hgb 8.0 L Hct 23.5 L MCV 88.7 MCH 30.3 MCHC 34.1 RDW 14.1 Plt Count 134 MPV 8.4 Neut % (Auto) 72.6 Lymph % (Auto) 14.5 L Waldo % (Auto) 8.7 Eos % (Auto) 3.0 Baso % (Auto) 1.2 Neut # (Auto) 4.4 Lymph # (Auto) 0.9 L Waldo # (Auto) 0.5 Eos # (Auto) 0.2 Baso # (Auto) 0.1 Sodium Potassium Chloride Carbon Dioxide Anion Gap BUN Creatinine Est GFR ( Amer) Est GFR (Non-Af Amer) Random Glucose Calcium Magnesium Total Bilirubin AST ALT Alkaline Phosphatase Total Protein Total Protein (PEP) Albumin Globulin Albumin/Globulin Ratio Complement C3 Complement C4 Hep Bs Antigen Hep Bs Antibody Negative Hep B Core IgM Ab Negative 11/14/18 04:30 WBC RBC Hgb Hct MCV MCH MCHC RDW Plt Count MPV Neut % (Auto) Lymph % (Auto) Waldo % (Auto) Eos % (Auto) Baso % (Auto) Neut # (Auto) Lymph # (Auto) Waldo # (Auto) Eos # (Auto) Baso # (Auto) Sodium 136 Potassium 3.2 L Chloride 107 Carbon Dioxide 18 L Anion Gap 14 BUN 86 H Creatinine 12.3 H* Est GFR ( Amer) 6 Est GFR (Non-Af Amer) 5 Random Glucose 88 Calcium 6.7 L Magnesium 1.8 Total Bilirubin 0.1 L AST 23 ALT 72 D Alkaline Phosphatase 170 H D Total Protein 5.2 L Total Protein (PEP) Albumin 2.6 L D Globulin 2.7 Albumin/Globulin Ratio 1.0 Complement C3 Complement C4 Hep Bs Antigen Hep Bs Antibody Hep B Core IgM Ab Radiology Impressions: Radiology Impressions Chest X-Ray 11/12/18 18:28 IMPRESSION: Severe cardiomegaly, mild pulmonary venous congestion and small effusions, larger on the right, the constellation of findings most compatible with mild congestive heart failure. Head CT 11/12/18 19:44 IMPRESSION: No acute intracranial abnormality. A preliminary report was provided by [employer]. Chest X-Ray 11/12/18 21:44 IMPRESSION: Right IJV central venous catheter terminates in the right atrium. Congestive heart failure. Critical Care Progress Note - Extremities/Vascular Does the Patient have a Central Venous Catheter?: No Does the Patient need a Central Venous Catheter?: No Does the Patient have a Vivar Catheter?: No Does the Patient need a Vivar Catheter?: No - Nutrition Nutrition: Nutrition Category Date Time Status Heart Healthy Diet [DIET] Diets 11/13/18 Dinner Active Assessment/Plan (1) Hypertensive emergency Current Visit: Yes Status: Acute Priority: High Comment: BP better, Continue Hydralazine 10 mg PO TID and Carvedilol 6.25 mg BID (2) CHF (congestive heart failure) Current Visit: Yes Status: Acute Priority: High Comment: HD to To optimize fluid status (3) ESRD (end stage renal disease) Current Visit: Yes Status: Acute Priority: High Comment: Scheduled for permacath placement today by IR (4) Anemia of renal disease Current Visit: Yes Status: Acute Priority: Medium Comment: Contine Epogen
[2018-11-14] MEDS ORDERED: Potassium Chloride 20 mEq ER Tab PO SCH (09:00)
--- NOTE | 2018-11-14 09:05 | CP.PCM.PN ---
<Yudith Holguin - Last Filed: 11/14/18 09:40> Subjective - Date & Time of Evaluation Date of Evaluation: 11/14/18 Time of Evaluation: 08:50 - Subjective Subjective: Pt seen/examined at bedside this am, resting comfortably in bed. No acute events overnight; required PRN hydralazine for BP control, however. Pt states he feels better. States he understands need for permanent dialysis access. Objective - Vital Signs/Intake and Output Vital Signs (last 24 hours): Temp Pulse Resp BP Pulse Ox 98.1 F 74 16 150/84 97 11/14/18 08:00 11/14/18 08:00 11/14/18 08:00 11/14/18 08:00 11/14/18 08:00 Intake and Output: 11/14/18 11/14/18 06:59 18:59 Intake Total 290 Output Total 1100 Balance -810 - Medications Medications: Current Medications Calcitriol (Rocaltrol) 0.5 mcg PO DAILY [facility] Last Admin: 11/13/18 08:57 Dose: 0.5 mcg Calcium Acetate (Phoslo) 1,334 mg PO WM [facility] Last Admin: 11/14/18 08:42 Dose: 1,334 mg Carvedilol (Coreg) 6.25 mg PO Q12 [facility] Last Admin: 11/13/18 20:58 Dose: 6.25 mg Clonidine HCl (Catapres) 0.2 mg PO BID [facility] Last Admin: 11/13/18 16:21 Dose: 0.2 mg Ergocalciferol (Drisdol 50,000 Intl Units Cap) 1 cap PO Q7D [facility] Last Admin: 11/13/18 00:29 Dose: 1 cap Hydralazine HCl (Apresoline) 10 mg IV Q6 PRN PRN Reason: Systolic Blood Pressure Last Admin: 11/13/18 17:31 Dose: 10 mg Hydralazine HCl (Apresoline) 25 mg PO Q6H [facility] Last Admin: 11/14/18 06:00 Dose: 25 mg Sevelamer HCl (Renagel) 800 mg PO TID [facility] Last Admin: 11/14/18 08:42 Dose: 800 mg Vitamin B Complex/Vit C/Folic Acid (Nephro-Yuridia) 1 tab PO DAILY [facility] Last Admin: 11/13/18 08:57 Dose: 1 tab - Labs Labs: 11/14/18 04:30 11/14/18 04:30 PT 12.0 Seconds (9.8-13.1) 11/13/18 04:30 INR 1.1 11/13/18 04:30 APTT 45.3 Seconds (25.6-37.1) H 11/13/18 04:30 - Constitutional Appears: No Acute Distress - Head Exam Head Exam: NORMAL INSPECTION - Eye Exam Eye Exam: Normal appearance - Neck Exam Neck Exam: Full ROM Additional comments: Right IJ shiley, clean, dry - Respiratory Exam Respiratory Exam: Clear to Ausculation Bilateral, NORMAL BREATHING PATTERN - Cardiovascular Exam Cardiovascular Exam: REGULAR RHYTHM, +S1, +S2 - GI/Abdominal Exam GI & Abdominal Exam: Soft. absent: Tenderness - Extremities Exam Extremities Exam: absent: Calf Tenderness Additional comments: trace pedal edema - Neurological Exam Neurological Exam: Alert, Oriented x3 - Psychiatric Exam Psychiatric exam: Normal Mood - Skin Skin Exam: Dry, Warm Assessment and Plan - Assessment and Plan (Free Text) Assessment: 32 yo M with hx hypertension, prior dx ESRD (with refusal of kidney biopsy and permanent dialysis access placement), admitted for hypertensive emergency and requiring hemodialysis. BP was stabilized with labetalol, hydralazine and nicardipine drip. Blurred vision resolved. On admission: BUN 108, Cr 14.6; Labs showed Ca 5.9, Phos 9.6, Mg 1.9; Transaminitis, proBNP > 82190 BUN 86, Cr 12.3 after dialysis session yest. Right IJ shiley placed on admission; had HD yest 11/13; pending further HD today. Echo: Mild-moderate concentric LVH, LV function low normal. EF 50-55%. Moderate pericardial effusion with no signs of tamponade. Plan: ESRD requiring hemodialyis - Nephrology: Dr. Yang; for HD; additional recs appreciated; started bumex - HD yesterday; pending HD today; continue to monitor for BUN/Cr improvement - IR consult for permacath - pending - Needs placement for outpatient HD upon discharge - Renal diet Hypertensive emergency - Echo with EF 50-55%, elevated proBNP, effusion: cardiology consulted, Dr. 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 - As per nephrology -awaiting PTH level; for now continue calcitriol and ergocalciferol, phoslo 2 tabs w/ meals - Should not supplement with IV calcium unless patient is symptomatic/ECG changes Transaminitis - Improving, almost normalized - AST: 134 -69-->23 - ALT: 124-- 112--72 - Alk Phos: 262- 257--170 - ETOH: <10 - Utox: negative - Trend and monitor DVT prophylaxis - SCDs; consider starting heparin if no plan for permacath today/tomorrow - Encourage OOBTC <Eden Mai - Last Filed: 11/14/18 14:00> Objective - Vital Signs/Intake and Output Vital Signs (last 24 hours): Temp Pulse Resp BP Pulse Ox 98.0 F 81 16 149/83 97 11/14/18 12:00 11/14/18 12:41 11/14/18 12:00 11/14/18 12:41 11/14/18 12:00 Intake and Output: 11/14/18 11/14/18 06:59 18:59 Intake Total 290 120 Output Total 1100 Balance -810 120 - Medications Medications: Current Medications Calcitriol (Rocaltrol) 0.5 mcg PO DAILY [facility] Last Admin: 11/14/18 12:40 Dose: 0.5 mcg Calcium Acetate (Phoslo) 1,334 mg PO WM [facility] Last Admin: 11/14/18 12:45 Dose: 1,334 mg Carvedilol (Coreg) 6.25 mg PO Q12 [facility] Last Admin: 11/13/18 20:58 Dose: 6.25 mg Clonidine HCl (Catapres) 0.2 mg PO BID [facility] Last Admin: 11/14/18 12:40 Dose: 0.2 mg Ergocalciferol (Drisdol 50,000 Intl Units Cap) 1 cap PO Q7D [facility] Last Admin: 11/13/18 00:29 Dose: 1 cap Hydralazine HCl (Apresoline) 10 mg IV Q6 PRN PRN Reason: Systolic Blood Pressure Last Admin: 11/13/18 17:31 Dose: 10 mg Hydralazine HCl (Apresoline) 25 mg PO Q6H [facility] Last Admin: 11/14/18 12:41 Dose: 25 mg Sevelamer HCl (Renagel) 800 mg PO TID [facility] Last Admin: 11/14/18 12:40 Dose: 800 mg Vitamin B Complex/Vit C/Folic Acid (Nephro-Yuridia) 1 tab PO DAILY [facility] Last Admin: 11/14/18 12:39 Dose: 1 tab - Labs Labs: 11/14/18 04:30 11/14/18 09:48 PT 12.2 Seconds (9.8-13.1) 11/14/18 08:55 INR 1.1 11/14/18 08:55 APTT 45.5 Seconds (25.6-37.1) H 11/14/18 08:55 Attending/Attestation - Attestation I have personally seen and examined this patient.: Yes I have fully participated in the care of the patient.: Yes I have reviewed all pertinent clinical information, including history, physical exam and plan: Yes Notes (Text): ESRD - HD started- - SW for outpt HD placement - Permacath placement by IR Pericardial effusion on ECHO due to ESRD -pt will be having daily HD for 3 days
[2018-11-14 09:15] LABS: INR 1.1; PROTHROMBIN TIME 12.2 Seconds (9.8-13.1)
[2018-11-14 09:17] LABS: PARTIAL THROMBOPLASTIN TIME 45.5 Seconds (25.6-37.1)
[2018-11-14 10:50] LABS: CALCIUM 6.8 mg/dL (8.4-10.2)
[2018-11-14 11:32] LABS: ALBUMIN (PEP) 3.3 g/dL (3.8-4.8); ALPHA-1-GLOBULIN (PEP) 0.4 g/dL (0.2-0.3)
[2018-11-14] MEDS: Multivitamin Vitamin B Complex (Nephro-Vite) Tab PO SCH (12:39)
--- NOTE | 2018-11-14 14:29 | PN ---
DATE: 11/14/2018 SUBJECTIVE: The patient underwent a second hemodialysis today. He denies any chest pain or shortness of breath. PHYSICAL EXAMINATION: VITAL SIGNS: Blood pressure 146/91, heart rate 70, temperature 98, respirations 16. HEENT: Pale conjunctivae. CHEST: Clear. HEART: S1 and S2, regular. EXTREMITIES: No edema. LABORATORY DATA: Today's hemoglobin and hematocrit 8 and 23.5, white count and platelet count are within normal limits. Today's BUN and creatinine are 85 and 12.2 respectively, potassium is 3.3 that was before his hemodialysis. A repeat echocardiographic study performed yesterday revealed mild to moderate concentric LVH with normal ejection fraction, moderate pericardial effusion with no signs of tamponade, mild pulmonary hypertension. ASSESSMENT: 1. End-stage renal disease. The patient was initiated on hemodialysis. 2. Moderate pericardial effusion without evidence of tamponade. 3. Hypokalemia. 4. Hypertension. RECOMMENDATIONS: Continue hydralazine 25 mg every 6 hours, clonidine 0.2 mg twice a day, PhosLo, Renagel, and Rocaltrol. The patient will undergo a third hemodialysis tomorrow. Followup echocardiographic study in 4 weeks after the patient is established on outpatient hemodialysis three times a week for followup of the pericardial effusion. Jeovany Hamlin MD
--- NOTE | 2018-11-14 21:49 | CP.PCM.PN ---
Subjective - Date & Time of Evaluation Date of Evaluation: 11/14/18 Time of Evaluation: 12:30 - Subjective Subjective: Patient seen on hD; denies sob; tolerating diet, no nausea/vomiting or diarrhea; urinating well; Objective - Vital Signs/Intake and Output Vital Signs (last 24 hours): Temp Pulse Resp BP Pulse Ox 97.4 F L 60 24 134/79 100 11/14/18 16:00 11/14/18 21:18 11/14/18 18:00 11/14/18 21:18 11/14/18 18:00 Intake and Output: 11/14/18 11/15/18 18:59 06:59 Intake Total 360 Output Total 2200 Balance -1840 - Medications Medications: Current Medications Calcitriol (Rocaltrol) 0.5 mcg PO DAILY [facility] Last Admin: 11/14/18 12:40 Dose: 0.5 mcg Calcium Acetate (Phoslo) 1,334 mg PO WM [facility] Last Admin: 11/14/18 17:29 Dose: 1,334 mg Carvedilol (Coreg) 6.25 mg PO Q12 [facility] Last Admin: 11/14/18 21:18 Dose: 6.25 mg Clonidine HCl (Catapres) 0.2 mg PO BID [facility] Last Admin: 11/14/18 17:30 Dose: 0.2 mg Ergocalciferol (Drisdol 50,000 Intl Units Cap) 1 cap PO Q7D [facility] Last Admin: 11/13/18 00:29 Dose: 1 cap Heparin Sodium (Porcine) (Heparin) 5,000 units SC Q12 [facility]; Protocol Last Admin: 11/14/18 21:19 Dose: 5,000 units Hydralazine HCl (Apresoline) 10 mg IV Q6 PRN PRN Reason: Systolic Blood Pressure Last Admin: 11/13/18 17:31 Dose: 10 mg Hydralazine HCl (Apresoline) 25 mg PO Q6H [facility] Last Admin: 11/14/18 18:50 Dose: 25 mg Sevelamer HCl (Renagel) 800 mg PO TID [facility] Last Admin: 11/14/18 17:29 Dose: 800 mg Vitamin B Complex/Vit C/Folic Acid (Nephro-Yuridia) 1 tab PO DAILY [facility] Last Admin: 11/14/18 12:39 Dose: 1 tab - Labs Labs: 11/14/18 04:30 11/14/18 09:48 PT 12.2 Seconds (9.8-13.1) 11/14/18 08:55 INR 1.1 11/14/18 08:55 APTT 45.5 Seconds (25.6-37.1) H 11/14/18 08:55 - Constitutional Appears: Non-toxic, No Acute Distress - Eye Exam Eye Exam: Normal appearance. absent: Scleral icterus - Respiratory Exam Respiratory Exam: Clear to Ausculation Bilateral. absent: Respiratory Distress - Cardiovascular Exam Cardiovascular Exam: RRR, +S1, +S2 - GI/Abdominal Exam GI & Abdominal Exam: Soft. absent: Distended, Tenderness - Extremities Exam Additional comments: moderate b/l leg edema; - Neurological Exam Neurological Exam: Alert, Awake - Psychiatric Exam Psychiatric exam: Normal Mood. absent: Agitated - Skin Skin Exam: Warm. absent: Cyanosis Assessment and Plan (1) ESRD (end stage renal disease) Assessment & Plan: Seen today on 2nd HD session since admission; still volume excess on exam but patient asymptomatic; using higher K dialysate given hypokalemia; next HD session tomorrow with full blood flow; will plan daily HD this week given moderate pericardial effusion; -should avoid nephrotoxic agents in order to preserve residual renal function; Status: Acute (2) Hypertensive emergency Assessment & Plan: BP much better controlled, continue current meds; may decrease meds once patient is brought down to dry weight with HD; Status: Acute (3) Anemia of renal disease Status: Acute (4) Chronic kidney disease-mineral and bone disorder Assessment & Plan: Hypocalcemia with secondary hyperparathyoidism; continue calcitriol 0.5 mcg daily, phoslo 2 tabs w/ meals; Status: Acute (5) CHF (congestive heart failure) Assessment & Plan: With diastolic dysfunction; need to continue aggressive BP control and achieve euvolemia with HD/diuretics; Status: Acute
[2018-11-15 06:32] LABS: HEMOGLOBIN 8.2 g/dL (12.0-18.0); MEAN CELL VOLUME 90.9 fl (80.0-94.0); MEAN CORPUSCULAR HEMOGLOBIN 29.9 pg (27.0-31.0); MEAN CORPUSCULAR HGB CONC 32.9 g/dL (33.0-37.0); RBC 2.74 Mil/uL (4.40-5.90); RED CELL DISTRIBUTION WIDTH 13.7 % (11.5-14.5); WHITE BLOOD COUNT 4.8 K/uL (4.8-10.8)
[2018-11-15] MEDS ORDERED: Epoetin Alfa 20000 UNIT/ML (RENAL DOSE) IV SCH (09:00)
--- NOTE | 2018-11-15 09:45 | CP.PCM.PN ---
Subjective - Date & Time of Evaluation Date of Evaluation: 11/15/18 Time of Evaluation: 09:00 - Subjective Subjective: Pt seen/examined at bedside this am, sitting up in bed no acute distress. States he has been thinking a lot about his diagnosis, knows that he has requirement for HD. BP has been better controlled. Objective - Vital Signs/Intake and Output Vital Signs (last 24 hours): Temp Pulse Resp BP Pulse Ox 97.4 F L 61 20 128/74 98 11/15/18 08:04 11/15/18 08:04 11/15/18 08:04 11/15/18 08:04 11/15/18 08:04 - Medications Medications: Current Medications Calcitriol (Rocaltrol) 0.5 mcg PO DAILY [facility] Last Admin: 11/14/18 12:40 Dose: 0.5 mcg Calcium Acetate (Phoslo) 1,334 mg PO WM [facility] Last Admin: 11/14/18 17:29 Dose: 1,334 mg Carvedilol (Coreg) 6.25 mg PO Q12 [facility] Last Admin: 11/14/18 21:18 Dose: 6.25 mg Clonidine HCl (Catapres) 0.2 mg PO BID [facility] Last Admin: 11/14/18 17:30 Dose: 0.2 mg Epoetin Destin (Procrit) 10,000 unit IV MWF [facility] Ergocalciferol (Drisdol 50,000 Intl Units Cap) 1 cap PO Q7D [facility] Last Admin: 11/13/18 00:29 Dose: 1 cap Heparin Sodium (Porcine) (Heparin) 5,000 units SC Q12 [facility]; Protocol Last Admin: 11/14/18 21:19 Dose: 5,000 units Hydralazine HCl (Apresoline) 10 mg IV Q6 PRN PRN Reason: Systolic Blood Pressure Last Admin: 11/13/18 17:31 Dose: 10 mg Hydralazine HCl (Apresoline) 25 mg PO Q6H [facility] Last Admin: 11/15/18 05:52 Dose: 25 mg Vitamin B Complex/Vit C/Folic Acid (Nephro-Yuridia) 1 tab PO DAILY [facility] Last Admin: 11/14/18 12:39 Dose: 1 tab - Labs Labs: 11/15/18 05:50 11/15/18 05:50 PT 12.2 Seconds (9.8-13.1) 11/14/18 08:55 INR 1.1 11/14/18 08:55 APTT 45.5 Seconds (25.6-37.1) H 11/14/18 08:55 - Constitutional Appears: No Acute Distress - Head Exam Head Exam: NORMAL INSPECTION - Eye Exam Eye Exam: Normal appearance - Neck Exam Additional comments: Right IJ shiley, clean, dry - Respiratory Exam Respiratory Exam: Clear to Ausculation Bilateral, NORMAL BREATHING PATTERN. absent: Respiratory Distress - Cardiovascular Exam Cardiovascular Exam: REGULAR RHYTHM - Extremities Exam Extremities Exam: Normal Inspection. absent: Calf Tenderness, Pedal Edema - Neurological Exam Neurological Exam: Alert, Oriented x3 - Psychiatric Exam Psychiatric exam: Normal Mood - Skin Skin Exam: Dry, Warm Assessment and Plan - Assessment and Plan (Free Text) Assessment: 32 yo M with hx hypertension, prior dx ESRD (with refusal of kidney biopsy and permanent dialysis access placement), admitted for hypertensive emergency and requiring hemodialysis. BP was stabilized with labetalol, hydralazine and nicardipine drip. Blurred vision resolved. On admission: BUN 108, Cr 14.6; Labs showed Ca 5.9, Phos 9.6, Mg 1.9; Transaminitis, proBNP > 04228 BUN 86, Cr 12.3 after initial dialysis. BUN 85, Cr 9.4 after second HD yest. Right IJ shiley placed on admission; had HD 11/13, 11/14. Pending permacath placement. Echo: Mild-moderate concentric LVH, LV function low normal. EF 50-55%. Moderate pericardial effusion with no signs of tamponade. As per cardio, will need echo in 4 weeks after established HD schedule to eval effusion Plan: ESRD requiring hemodialyis - Nephrology: Dr. Yang; for HD; additional recs appreciated; started bumex - HD last 2 days, BUN/Cr trending down, continue to monitor for BUN/Cr improvement - IR consult for permacath - pending - Needs placement for outpatient HD upon discharge - Renal diet Hypertensive emergency - Echo with EF 50-55%, elevated proBNP, effusion: cardiology consulted, Dr. Hamlin, input and recs appreciated; will need echo in 4 weeks after established HD schedule to eval effusion - Continue with Carvedilol 6.25 mg BID; hydralazine increased to 25 mg Q6h, clonidine 0.2 mg BID - Monitor for worsening of symptoms/end organ damage, vitals Anemia - H/H: 8.0/23.5 - Normocytic; likely 2/2 ESRD - EPO MWF as ordered by nephro - Monitor CBC Hypokalemia - Replete, f/u renal recs Mineral and Bone disorder in setting of ESRD - As per nephrology -awaiting PTH level; for now continue calcitriol and ergocalciferol, phoslo 2 tabs w/ meals - Should not supplement with IV calcium unless patient is symptomatic/ECG changes Transaminitis - AST, ALT normalized DVT prophylaxis - Heparin - Encourage OOBTC
[2018-11-15] MEDS: Multivitamin Vitamin B Complex (Nephro-Vite) Tab PO SCH (10:11)
[2018-11-15] MEDS: EPOETIN ALFA 10,000 UNIT/ML ML IV SCH (10:12)
--- NOTE | 2018-11-15 22:40 | CP.PCM.PN ---
Subjective - Date & Time of Evaluation Date of Evaluation: 11/15/18 Time of Evaluation: 13:00 - Subjective Subjective: Patient feeling somewhat weak; denies any sob; urinating well; Objective - Vital Signs/Intake and Output Vital Signs (last 24 hours): Temp Pulse Resp BP Pulse Ox 97.7 F 71 18 146/84 97 11/15/18 16:31 11/15/18 22:18 11/15/18 16:31 11/15/18 22:18 11/15/18 16:31 - Medications Medications: Current Medications Calcitriol (Rocaltrol) 0.5 mcg PO DAILY [facility] Last Admin: 11/15/18 10:11 Dose: 0.5 mcg Calcium Acetate (Phoslo) 1,334 mg PO WM [facility] Last Admin: 11/15/18 19:24 Dose: 1,334 mg Carvedilol (Coreg) 6.25 mg PO Q12 [facility] Last Admin: 11/15/18 22:18 Dose: 6.25 mg Clonidine HCl (Catapres) 0.1 mg PO BID [facility] Epoetin Destin (Procrit) 10,000 unit IV MWF [facility] Last Admin: 11/15/18 10:12 Dose: 10,000 unit Ergocalciferol (Drisdol 50,000 Intl Units Cap) 1 cap PO Q7D [facility] Last Admin: 11/13/18 00:29 Dose: 1 cap Heparin Sodium (Porcine) (Heparin) 5,000 units SC Q12 [facility]; Protocol Last Admin: 11/15/18 22:18 Dose: 5,000 units Hydralazine HCl (Apresoline) 10 mg IV Q6 PRN PRN Reason: Systolic Blood Pressure Last Admin: 11/13/18 17:31 Dose: 10 mg Hydralazine HCl (Apresoline) 25 mg PO Q6H [facility] Last Admin: 11/15/18 19:22 Dose: 25 mg Vitamin B Complex/Vit C/Folic Acid (Nephro-Yuridia) 1 tab PO DAILY [facility] Last Admin: 11/15/18 10:11 Dose: 1 tab - Labs Labs: 11/15/18 05:50 11/15/18 05:50 PT 12.2 Seconds (9.8-13.1) 11/14/18 08:55 INR 1.1 11/14/18 08:55 APTT 45.5 Seconds (25.6-37.1) H 11/14/18 08:55 - Constitutional Appears: Non-toxic, No Acute Distress - Eye Exam Eye Exam: Normal appearance - Respiratory Exam Respiratory Exam: Clear to Ausculation Bilateral. absent: Respiratory Distress - Cardiovascular Exam Cardiovascular Exam: RRR, +S1, +S2. absent: Gallop, Rubs - GI/Abdominal Exam GI & Abdominal Exam: Soft. absent: Distended, Tenderness - Extremities Exam Additional comments: moderate b/l leg edema; - Neurological Exam Neurological Exam: Alert, Awake - Psychiatric Exam Psychiatric exam: Normal Affect, Normal Mood. absent: Agitated - Skin Skin Exam: Warm. absent: Normal Color Assessment and Plan (1) ESRD (end stage renal disease) Assessment & Plan: Relatively stable volume and electrolyte status (mild hypokalemia noted); dial yzing daily till Tuesday due to concern for moderate size pericardial effusion; -avoid nephrotoxic agents in order to preserve residual renal function; Status: Acute (2) Hypertensive emergency Assessment & Plan: BP now well controlled, benefitting also from UF on HD; will decrease clonidine to 0.1 mg bid, continue rest of meds; Status: Acute (3) Anemia of renal disease Assessment & Plan: Hgb below goal, continue EPO on HD; Status: Acute (4) Chronic kidney disease-mineral and bone disorder Assessment & Plan: Hypocalcemia improved, continue calcitriol 0.5 mcg daily; continue phoslo 2 tabs w/ meals; Status: Acute (5) CHF (congestive heart failure) Assessment & Plan: Improving volume status, will continue UF on HD and establish true dry weight; Status: Acute
[2018-11-16 06:32] LABS: IRON 26 ug/dL (49-181)
[2018-11-16 06:38] LABS: CALCIUM 7.4 mg/dL (8.4-10.2)
[2018-11-16 06:41] LABS: % IRON SATURATION 12 % (20-55); TOTAL IRON BINDING CAPACITY 214 ug/dL (250-450)
[2018-11-16] MEDS: Multivitamin Vitamin B Complex (Nephro-Vite) Tab PO SCH (08:44)
--- NOTE | 2018-11-16 10:12 | CP.PCM.PN ---
Subjective - Date & Time of Evaluation Date of Evaluation: 11/16/18 Time of Evaluation: 09:50 - Subjective Subjective: Pt seen/examined this am; no acute events overnight. Comfortable, without complaints. Undergoing HD now. For permacath placement later today. Objective - Vital Signs/Intake and Output Vital Signs (last 24 hours): Temp Pulse Resp BP Pulse Ox 98.0 F 82 19 125/77 96 11/16/18 07:56 11/16/18 07:56 11/16/18 07:56 11/16/18 07:56 11/16/18 07:56 Intake and Output: 11/16/18 11/16/18 06:59 18:59 Output Total 75 Balance -75 - Medications Medications: Current Medications Calcitriol (Rocaltrol) 0.5 mcg PO DAILY [facility] Last Admin: 11/16/18 08:43 Dose: Not Given Calcium Acetate (Phoslo) 1,334 mg PO WM [facility] Last Admin: 11/16/18 08:44 Dose: Not Given Carvedilol (Coreg) 6.25 mg PO Q12 [facility] Last Admin: 11/16/18 08:42 Dose: Not Given Clonidine HCl (Catapres) 0.1 mg PO BID [facility] Last Admin: 11/16/18 08:42 Dose: Not Given Epoetin Destin (Procrit) 10,000 unit IV MWF [facility] Last Admin: 11/15/18 10:12 Dose: 10,000 unit Ergocalciferol (Drisdol 50,000 Intl Units Cap) 1 cap PO Q7D [facility] Last Admin: 11/13/18 00:29 Dose: 1 cap Heparin Sodium (Porcine) (Heparin) 5,000 units SC Q12 [facility]; Protocol Last Admin: 11/15/18 22:18 Dose: 5,000 units Hydralazine HCl (Apresoline) 10 mg IV Q6 PRN PRN Reason: Systolic Blood Pressure Last Admin: 11/13/18 17:31 Dose: 10 mg Hydralazine HCl (Apresoline) 25 mg PO Q6H [facility] Last Admin: 11/16/18 08:41 Dose: Not Given Iron Sucrose 100 mg/ Sodium (Chloride) 105 mls @ 105 mls/hr IVPB DAILY [facility] Stop: 11/25/18 09:59 Vitamin B Complex/Vit C/Folic Acid (Nephro-Yuridia) 1 tab PO DAILY [facility] Last Admin: 11/16/18 08:44 Dose: Not Given - Labs Labs: 11/15/18 05:50 11/16/18 05:35 PT 12.2 Seconds (9.8-13.1) 11/14/18 08:55 INR 1.1 11/14/18 08:55 APTT 45.5 Seconds (25.6-37.1) H 11/14/18 08:55 - Constitutional Appears: No Acute Distress - Head Exam Head Exam: NORMAL INSPECTION - Eye Exam Eye Exam: Normal appearance - Neck Exam Additional comments: + R IJ shiley, undergoing HD - Respiratory Exam Respiratory Exam: Clear to Ausculation Bilateral, NORMAL BREATHING PATTERN - Cardiovascular Exam Cardiovascular Exam: REGULAR RHYTHM, +S1, +S2 - GI/Abdominal Exam GI & Abdominal Exam: absent: Tenderness - Extremities Exam Extremities Exam: Normal Inspection. absent: Calf Tenderness - Neurological Exam Neurological Exam: Alert, Oriented x3 - Skin Skin Exam: Dry, Warm Assessment and Plan - Assessment and Plan (Free Text) Assessment: 32 yo M with hx hypertension, prior dx ESRD (with refusal of kidney biopsy and permanent dialysis access placement), admitted for hypertensive emergency and requiring hemodialysis. BP was stabilized with labetalol, hydralazine and nicardipine drip. Blurred vision resolved. On admission: BUN 108, Cr 14.6; Labs showed Ca 5.9, Phos 9.6, Mg 1.9; Transaminitis, proBNP > 33102 Has been getting daily dialysis - this am Cr down to 6.4, BUN 33. Right IJ shiley placed on admission; had HD 11/13, 11/14, 11/15. Pending permacath placement today. Echo: Mild-moderate concentric LVH, LV function low normal. EF 50-55%. Moderate pericardial effusion with no signs of tamponade. As per cardio, will need echo in 4 weeks after established HD schedule to eval effusion. Plan: ESRD requiring hemodialyis - Nephrology: Dr. Yang; for HD; additional recs appreciated; - HD last 3 days, BUN/Cr trending down, continue to monitor for BUN/Cr improvement - IR consult for permacath - pending today - Needs placement for outpatient HD upon discharge - Renal diet Hypertensive emergency - Echo with EF 50-55%, elevated proBNP, effusion: cardiology consulted, Dr. Hamlin, input and recs appreciated; will need echo in 4 weeks after establish ed HD schedule to eval effusion - Continue with Carvedilol 6.25 mg BID; hydralazine increased to 25 mg Q6h, clonidine 0.2 mg BID - Monitor for worsening of symptoms/end organ damage, vitals Anemia - H/H: 8.2/24.9 - Normocytic; likely 2/2 ESRD - EPO MWF as ordered by nephro - Monitor CBC Hypokalemia - Replete, f/u renal recs Mineral and Bone disorder in setting of ESRD - As per nephrology -awaiting PTH level; for now continue calcitriol and ergocalciferol, phoslo 2 tabs w/ meals - Should not supplement with IV calcium unless patient is symptomatic/ECG changes Transaminitis - AST, ALT normalized DVT prophylaxis - Heparin held this am for procedures - Encourage OOBTC
[2018-11-16] MEDS ORDERED: Midazolam 2 MG/2 ML VIAL ONE (13:25)
[2018-11-16] MEDS ORDERED: Lidocaine 1% Inj (20ml) ONE (13:30)
--- NOTE | 2018-11-16 13:56 | PCM.SURG1 ---
Surgeon's Initial Post Op Note - Surgeon's Notes Surgeon: Gustavo Guerra MD [place] Work[employer] Helper: NONE Type of Anesthesia: IV Sedation Pre-Operative Diagnosis: REnal failure Operative Findings: US showed a patent right IJV Post-Operative Diagnosis: Renal failure Operation Performed: Placement of a tunneled HD catheter via right IJV. Removal of non tunneled HD catheter. Specimen/Specimens Removed: none Estimated Blood Loss: EBL {In ML}: 3 Blood Products Given: N/A Drains Used: No Drains Post-Op Condition: Fair Date of Surgery/Procedure: 11/16/18 Time of Surgery/Procedure: 13:55
[2018-11-16] MEDS ORDERED: Sodium Chloride 0.9% 250 ML IV ONE (14:04)
--- NOTE | 2018-11-16 14:05 | VASCULAR ---
PROCEDURE: Date of procedure: 11/16/2018 Procedure: 1. Placement of right IJ tunneled hemodialysis catheter 2. REmoval of non tunneled HD catheter. Medications:8CC 1 percent lidocaine, IV sedation and physiologic monitoring performed by the anesthesiologist. EBL: 3 cm Radiation:1.08mGy Fluoro time: 6.6 Seconds Images: 2 HISTORY: Renal failure requiring hemodialysis TECHNIQUE: Following informed consent and procedure time-out, the patient was placed supine on the interventional table and the skin was marked . A limited ultrasound patient's right neck showed a patent compressible right internal jugular vein. Under direct ultrasound guidance, the right internal jugular vein was accessed with micropuncture technique and a guidewire was advanced under fluoroscopic guidance into the superior vena cava. An image documenting ultrasound guidance for vascular access was permanently saved. A 19 centimeter cuff to tip hemodialysis catheter was then tunneled under the skin and hold the venotomy site. The venotomy was then serially dilated to accommodate the peel-away sheath. The hemodialysis catheter was then advanced through a peel-away sheath. The catheter is positioned with tip in the superior vena cava confirm with fluoroscopic image. The catheter was tested and has adequate blood flow for hemodialysis. The catheter was flushed and locked with heparin per specified amount. The catheter secured to the skin with a 0 silk suture. The previously placed non tunneled HD catheter was removed under sterile conditions. A dressing applied. IMPRESSION: Placement of tunneled hemodialysis, 19 cm cuff-to-tip, catheter via the right IJV. The catheter tip is confirmed with spot radiograph and is in the superior vena cava. The catheter is functional and ready for use.
[2018-11-17 06:42] LABS: HEMOGLOBIN 9.2 g/dL (12.0-18.0); MEAN CELL VOLUME 91.4 fl (80.0-94.0); MEAN CORPUSCULAR HEMOGLOBIN 30.6 pg (27.0-31.0); MEAN CORPUSCULAR HGB CONC 33.4 g/dL (33.0-37.0); RBC 3.01 Mil/uL (4.40-5.90)
[2018-11-17 07:43] LABS: CALCIUM 7.8 mg/dL (8.4-10.2)
[2018-11-17] MEDS: Multivitamin Vitamin B Complex (Nephro-Vite) Tab PO SCH (08:56)
--- NOTE | 2018-11-17 10:01 | CP.PCM.PN ---
<Murtaza Holguina - Last Filed: 11/17/18 09:58> Subjective - Date & Time of Evaluation Date of Evaluation: 11/17/18 Time of Evaluation: 09:15 - Subjective Subjective: Pt seen/examined this am; no acute events overnight. Comfortable, without complaints. About to eat breakfast. Yesterday had right IJV tunneled HD cath placed; right IJV shiley removed. Objective - Vital Signs/Intake and Output Vital Signs (last 24 hours): Temp Pulse Resp BP Pulse Ox 97.7 F 68 20 151/95 H 98 11/17/18 09:30 11/17/18 09:30 11/17/18 09:30 11/17/18 09:30 11/17/18 09:30 - Medications Medications: Current Medications Calcitriol (Rocaltrol) 0.5 mcg PO DAILY [facility] Last Admin: 11/17/18 08:57 Dose: 0.5 mcg Calcium Acetate (Phoslo) 1,334 mg PO WM [facility] Last Admin: 11/17/18 08:00 Dose: 1,334 mg Carvedilol (Coreg) 6.25 mg PO Q12 [facility] Last Admin: 11/17/18 08:55 Dose: 6.25 mg Clonidine HCl (Catapres) 0.1 mg PO BID [facility] Last Admin: 11/17/18 08:54 Dose: 0.1 mg Epoetin Destin (Procrit) 10,000 unit IV MWF [facility] Last Admin: 11/15/18 10:12 Dose: 10,000 unit Ergocalciferol (Drisdol 50,000 Intl Units Cap) 1 cap PO Q7D [facility] Last Admin: 11/13/18 00:29 Dose: 1 cap Heparin Sodium (Porcine) (Heparin) 5,000 units SC Q12 [facility]; Protocol Last Admin: 11/15/18 22:18 Dose: 5,000 units Hydralazine HCl (Apresoline) 10 mg IV Q6 PRN PRN Reason: Systolic Blood Pressure Last Admin: 11/13/18 17:31 Dose: 10 mg Hydralazine HCl (Apresoline) 25 mg PO Q6H [facility] Last Admin: 11/17/18 05:52 Dose: 25 mg Iron Sucrose 100 mg/ Sodium (Chloride) 105 mls @ 105 mls/hr IVPB DAILY [facility] Stop: 11/25/18 09:59 Last Admin: 11/17/18 08:57 Dose: 105 mls/hr Vitamin B Complex/Vit C/Folic Acid (Nephro-Yuridia) 1 tab PO DAILY [facility] Last Admin: 11/17/18 08:56 Dose: 1 tab - Labs Labs: 11/17/18 05:30 11/17/18 05:30 PT 12.2 Seconds (9.8-13.1) 11/14/18 08:55 INR 1.1 11/14/18 08:55 APTT 45.5 Seconds (25.6-37.1) H 11/14/18 08:55 - Constitutional Appears: No Acute Distress - Head Exam Head Exam: NORMAL INSPECTION - Eye Exam Eye Exam: Normal appearance - ENT Exam ENT Exam: Mucous Membranes Moist - Respiratory Exam Respiratory Exam: Clear to Ausculation Bilateral, NORMAL BREATHING PATTERN - Cardiovascular Exam Cardiovascular Exam: REGULAR RHYTHM - Extremities Exam Extremities Exam: Normal Inspection. absent: Pedal Edema - Neurological Exam Neurological Exam: Alert, Oriented x3 - Skin Skin Exam: Dry, Warm - Additional Findings Additional findings: HD catheter in right side of chest; dressing clean, dry, intact Assessment and Plan - Assessment and Plan (Free Text) Assessment: 32 yo M with hx hypertension, prior dx ESRD (with refusal of kidney biopsy and permanent dialysis access placement), admitted for hypertensive emergency and requiring hemodialysis. BP was stabilized with labetalol, hydralazine and nicardipine drip. Blurred vision resolved. On admission: BUN 108, Cr 14.6; Labs showed Ca 5.9, Phos 9.6, Mg 1.9; Transaminitis, proBNP > 57693 Has been getting daily dialysis since admission- this am Cr down to 5.8, BUN 26. Right IJ shiley placed on admission; had HD 11/13, 11/14, 11/15 11/16. 11/16 - removal of right IJ shiley and placement of tunneled HD catheter by IR. Echo: Mild-moderate concentric LVH, LV function low normal. EF 50-55%. Moderate pericardial effusion with no signs of tamponade. As per cardio, will need echo in 4 weeks after established HD schedule to eval effusion. Awaiting placement for permanent HD spot in community. Plan: ESRD requiring hemodialyis - Nephrology: Dr. Yang; for HD; additional recs appreciated; - HD last 4 days, BUN/Cr trending down, continue to monitor for BUN/Cr improvement - Has permanent HD cath - Right IJ via chest - Needs placement for outpatient HD upon discharge - Renal diet Hypertensive emergency - Echo with EF 50-55%, elevated proBNP, effusion: cardiology consulted, Dr. Hamlin, input and recs appreciated; will need echo in 4 weeks after established HD schedule to eval effusion - Continue with Carvedilol 6.25 mg BID; hydralazine increased to 25 mg Q6h, clonidine 0.2 mg BID - Monitor for worsening of symptoms/end organ damage, vitals Anemia - Normocytic; likely 2/2 ESRD - EPO MWF as ordered by nephro - IV iron - Monitor CBC Hypokalemia - Resolved now; K 4.0 on this morning labs Mineral and Bone disorder in setting of ESRD - As per nephrology - continue calcitriol 0.5 mcg daily; continue phoslo 2 tabs w/ meals Transaminitis - AST, ALT normalized DVT prophylaxis - Heparin Q12 - Encourage OOBTC <Eden Mai - Last Filed: 11/17/18 15:11> Objective - Vital Signs/Intake and Output Vital Signs (last 24 hours): Temp Pulse Resp BP Pulse Ox 97.7 F 68 20 151/95 H 98 11/17/18 09:30 11/17/18 09:30 11/17/18 09:30 11/17/18 09:30 11/17/18 09:30 - Medications Medications: Current Medications Calcitriol (Rocaltrol) 0.5 mcg PO DAILY [facility] Last Admin: 11/17/18 08:57 Dose: 0.5 mcg Calcium Acetate (Phoslo) 1,334 mg PO WM [facility] Last Admin: 11/17/18 08:00 Dose: 1,334 mg Carvedilol (Coreg) 6.25 mg PO Q12 [facility] Last Admin: 11/17/18 08:55 Dose: 6.25 mg Clonidine HCl (Catapres) 0.1 mg PO BID [facility] Last Admin: 11/17/18 08:54 Dose: 0.1 mg Epoetin Destin (Procrit) 10,000 unit IV MWF [facility] Last Admin: 11/15/18 10:12 Dose: 10,000 unit Ergocalciferol (Drisdol 50,000 Intl Units Cap) 1 cap PO Q7D [facility] Last Admin: 11/13/18 00:29 Dose: 1 cap Heparin Sodium (Porcine) (Heparin) 5,000 units SC Q12 [facility]; Protocol Last Admin: 11/15/18 22:18 Dose: 5,000 units Hydralazine HCl (Apresoline) 10 mg IV Q6 PRN PRN Reason: Systolic Blood Pressure Last Admin: 11/13/18 17:31 Dose: 10 mg Hydralazine HCl (Apresoline) 25 mg PO Q6H [facility] Last Admin: 11/17/18 05:52 Dose: 25 mg Iron Sucrose 100 mg/ Sodium (Chloride) 105 mls @ 105 mls/hr IVPB DAILY [facility] Stop: 11/25/18 09:59 Last Admin: 11/17/18 08:57 Dose: 105 mls/hr Vitamin B Complex/Vit C/Folic Acid (Nephro-Yuridia) 1 tab PO DAILY [facility] Last Admin: 11/17/18 08:56 Dose: 1 tab - Labs Labs: 11/17/18 05:30 11/17/18 05:30 PT 12.2 Seconds (9.8-13.1) 11/14/18 08:55 INR 1.1 11/14/18 08:55 APTT 45.5 Seconds (25.6-37.1) H 11/14/18 08:55 Attending/Attestation - Attestation I have personally seen and examined this patient.: Yes I have fully participated in the care of the patient.: Yes I have reviewed all pertinent clinical information, including history, physical exam and plan: Yes Notes (Text): Pericardial Effusion seen on ECHO likely due to ESRD - pt has been receiving back to back HD - discussed with Dr Hamlin - rec rpt ECHO prior to discharge
[2018-11-17] MEDS: EPOETIN ALFA 10,000 UNIT/ML ML IV SCH (14:00)
--- NOTE | 2018-11-17 22:07 | CP.PCM.PN ---
Subjective - Date & Time of Evaluation Date of Evaluation: 11/17/18 Time of Evaluation: 19:00 - Subjective Subjective: s/p 5th straight HD session; reports some dizziness thereafter; otherwise feels well, no sob, nausea/vomiting or diarrhea; urinating well; Objective - Vital Signs/Intake and Output Vital Signs (last 24 hours): Temp Pulse Resp BP Pulse Ox 97.7 F 81 18 131/87 96 11/17/18 16:14 11/17/18 20:50 11/17/18 16:14 11/17/18 20:50 11/17/18 16:14 - Medications Medications: Current Medications Calcitriol (Rocaltrol) 0.5 mcg PO DAILY [facility] Last Admin: 11/17/18 08:57 Dose: 0.5 mcg Calcium Acetate (Phoslo) 1,334 mg PO WM [facility] Last Admin: 11/17/18 12:00 Dose: 1,334 mg Carvedilol (Coreg) 6.25 mg PO Q12 [facility] Last Admin: 11/17/18 20:50 Dose: 6.25 mg Clonidine HCl (Catapres) 0.1 mg PO BID [facility] Last Admin: 11/17/18 17:01 Dose: 0.1 mg Epoetin Destin (Procrit) 10,000 unit IV MWF [facility] Last Admin: 11/17/18 14:00 Dose: 10,000 unit Ergocalciferol (Drisdol 50,000 Intl Units Cap) 1 cap PO Q7D [facility] Last Admin: 11/13/18 00:29 Dose: 1 cap Heparin Sodium (Porcine) (Heparin) 5,000 units SC Q12 [facility]; Protocol Last Admin: 11/15/18 22:18 Dose: 5,000 units Hydralazine HCl (Apresoline) 10 mg IV Q6 PRN PRN Reason: Systolic Blood Pressure Last Admin: 11/13/18 17:31 Dose: 10 mg Hydralazine HCl (Apresoline) 25 mg PO Q6H [facility] Last Admin: 11/17/18 17:01 Dose: 25 mg Iron Sucrose 100 mg/ Sodium (Chloride) 105 mls @ 105 mls/hr IVPB DAILY [facility] Stop: 11/25/18 09:59 Last Admin: 11/17/18 08:57 Dose: 105 mls/hr Vitamin B Complex/Vit C/Folic Acid (Nephro-Yuridia) 1 tab PO DAILY [facility] Last Admin: 11/17/18 08:56 Dose: 1 tab - Labs Labs: 11/17/18 05:30 11/17/18 05:30 PT 12.2 Seconds (9.8-13.1) 11/14/18 08:55 INR 1.1 11/14/18 08:55 APTT 45.5 Seconds (25.6-37.1) H 11/14/18 08:55 - Constitutional Appears: Non-toxic, No Acute Distress - Eye Exam Eye Exam: Normal appearance - Respiratory Exam Respiratory Exam: Clear to Ausculation Bilateral. absent: Respiratory Distress - Cardiovascular Exam Cardiovascular Exam: RRR, +S1, +S2 - GI/Abdominal Exam GI & Abdominal Exam: Soft. absent: Distended, Tenderness - Extremities Exam Additional comments: mild bilateral leg edema, improving; - Neurological Exam Neurological Exam: Alert, Awake - Psychiatric Exam Psychiatric exam: Normal Mood. absent: Agitated - Skin Skin Exam: Warm. absent: Cyanosis Assessment and Plan (1) ESRD (end stage renal disease) Assessment & Plan: Now s/p 5th straight HD session (first 3 sessions are per protocol with gradually increasing efficiency of HD to prevent dialysis disequilibrium, next 2 were due to presence of pericardial effusion and to decrease the uremic milieu, not for aggressive volume removal); currently with stable volume and electrolyte status; will keep on MWF HD schedule hereafter; -continue to avoid nephrotoxic agents to preserve residual renal function; Status: Acute (2) Hypertensive emergency Assessment & Plan: BP much improved; continue current meds; will attempt to simplify meds for patie nt for whom outpatient compliance is suspect; decreasing hydralazine to q8h; Status: Acute (3) Anemia of renal disease Assessment & Plan: Getting IV iron loading and EPO on HD; continue; Status: Acute (4) Chronic kidney disease-mineral and bone disorder Assessment & Plan: Hypocalcemia improved, continue calcitriol and phoslo; monitor phos periodically (goal <5.5); Status: Acute (5) CHF (congestive heart failure) Assessment & Plan: Stable, continue adequate BP control; will start diuretics on non-HD days if needed; Status: Acute
[2018-11-18 08:13] LABS: CALCIUM 7.9 mg/dL (8.4-10.2)
[2018-11-18] MEDS: Multivitamin Vitamin B Complex (Nephro-Vite) Tab PO SCH (09:30)
--- NOTE | 2018-11-18 09:50 | CP.PCM.PN ---
<Murtaza Holguina - Last Filed: 11/18/18 09:48> Subjective - Date & Time of Evaluation Date of Evaluation: 11/18/18 Time of Evaluation: 08:30 - Subjective Subjective: Pt seen/examined this am; no acute events overnight. No chest pain, shortness of breath, tolerating PO diet well. Had 5th dialysis yesterday, tolerated well. Objective - Vital Signs/Intake and Output Vital Signs (last 24 hours): Temp Pulse Resp BP Pulse Ox 97.1 F L 62 20 145/81 98 11/18/18 08:35 11/18/18 09:30 11/18/18 08:35 11/18/18 09:30 11/18/18 08:35 - Medications Medications: Current Medications Calcitriol (Rocaltrol) 0.5 mcg PO DAILY [facility] Last Admin: 11/18/18 09:32 Dose: 0.5 mcg Calcium Acetate (Phoslo) 1,334 mg PO WM [facility] Last Admin: 11/18/18 06:52 Dose: 1,334 mg Carvedilol (Coreg) 6.25 mg PO Q12 [facility] Last Admin: 11/18/18 09:30 Dose: 6.25 mg Clonidine HCl (Catapres) 0.1 mg PO BID [facility] Last Admin: 11/18/18 09:29 Dose: 0.1 mg Epoetin Destin (Procrit) 10,000 unit IV MWF [facility] Last Admin: 11/17/18 14:00 Dose: 10,000 unit Ergocalciferol (Drisdol 50,000 Intl Units Cap) 1 cap PO Q7D [facility] Last Admin: 11/13/18 00:29 Dose: 1 cap Heparin Sodium (Porcine) (Heparin) 5,000 units SC Q12 [facility]; Protocol Last Admin: 11/15/18 22:18 Dose: 5,000 units Hydralazine HCl (Apresoline) 10 mg IV Q6 PRN PRN Reason: Systolic Blood Pressure Last Admin: 11/13/18 17:31 Dose: 10 mg Hydralazine HCl (Apresoline) 25 mg PO Q8H [facility] Iron Sucrose 100 mg/ Sodium (Chloride) 105 mls @ 105 mls/hr IVPB DAILY [facility] Stop: 11/25/18 09:59 Last Admin: 11/18/18 09:32 Dose: 105 mls/hr Vitamin B Complex/Vit C/Folic Acid (Nephro-Yuridia) 1 tab PO DAILY [facility] Last Admin: 11/18/18 09:30 Dose: 1 tab - Labs Labs: 11/17/18 05:30 11/18/18 05:30 PT 12.2 Seconds (9.8-13.1) 11/14/18 08:55 INR 1.1 11/14/18 08:55 APTT 45.5 Seconds (25.6-37.1) H 11/14/18 08:55 - Constitutional Appears: No Acute Distress - Head Exam Head Exam: NORMAL INSPECTION - Eye Exam Eye Exam: Normal appearance - Respiratory Exam Respiratory Exam: NORMAL BREATHING PATTERN. absent: Wheezes, Respiratory Distress - Cardiovascular Exam Cardiovascular Exam: REGULAR RHYTHM, +S1, +S2 - GI/Abdominal Exam GI & Abdominal Exam: Soft - Extremities Exam Extremities Exam: absent: Calf Tenderness - Neurological Exam Neurological Exam: Alert - Skin Skin Exam: Normal Color, Warm - Additional Findings Additional findings: HD catheter in right side of chest; dressing clean, dry, intact Assessment and Plan - Assessment and Plan (Free Text) Assessment: 32 yo M with hx hypertension, prior dx ESRD (with refusal of kidney biopsy and permanent dialysis access placement), admitted for hypertensive emergency and requiring hemodialysis. BP was stabilized with labetalol, hydralazine and nicardipine drip. Blurred vision resolved. On admission: BUN 108, Cr 14.6; Labs showed Ca 5.9, Phos 9.6, Mg 1.9; Transaminitis, proBNP > [id number] Has been getting daily dialysis since admission- this am Cr down to 5.4, BUN 20. Right IJ shiley placed on admission; had HD 11/13, 11/14, 11/15 11/16, 11/17. Will start HD MWF. 11/16 - removal of right IJ shiley and placement of tunneled HD catheter by IR. Echo: Mild-moderate concentric LVH, LV function low normal. EF 50-55%. Moderate pericardial effusion with no signs of tamponade. As per cardio, will need echo in 4 weeks after established HD schedule to eval effusion. Awaiting placement for permanent HD spot in community. Plan: ESRD requiring hemodialyis - Nephrology: Dr. Yang; for HD; additional recs appreciated; - HD last 5 days, BUN/Cr trending down, continue to monitor for BUN/Cr imp rovement - As per nephro, will now start HD MWF schedule - Has permanent HD cath - Right IJ via chest - Needs placement for outpatient HD upon discharge - Renal diet Hypertensive emergency - Echo with EF 50-55%, elevated proBNP, effusion: cardiology consulted, Dr. Hamlin, input and recs appreciated; will need echo 4 weeks after admision after established HD schedule to eval effusion - Continue with Carvedilol 6.25 mg BID; hydralazine decreased to 25 mg Q8h, clonidine 0.2 mg BID - Monitor for worsening of symptoms/end organ damage, vitals Anemia - Normocytic; likely 2/2 ESRD - EPO MWF as ordered by nephro - IV iron - Monitor CBC Hypokalemia - Resolved now; K 4.0 on this morning labs Mineral and Bone disorder in setting of ESRD - As per nephrology - continue calcitriol 0.5 mcg daily; continue phoslo 2 tabs w/ meals - Monitor phos periodically (goal <5.5) Transaminitis - AST, ALT normalized DVT prophylaxis - Heparin Q12 - Encourage OOBTC <Eden Mai - Last Filed: 11/18/18 15:16> Objective - Vital Signs/Intake and Output Vital Signs (last 24 hours): Temp Pulse Resp BP Pulse Ox 97.1 F L 62 20 145/81 98 11/18/18 08:35 11/18/18 09:30 11/18/18 08:35 11/18/18 09:30 11/18/18 08:35 - Medications Medications: Current Medications Calcitriol (Rocaltrol) 0.5 mcg PO DAILY [facility] Last Admin: 11/18/18 09:32 Dose: 0.5 mcg Calcium Acetate (Phoslo) 1,334 mg PO WM [facility] Last Admin: 11/18/18 06:52 Dose: 1,334 mg Carvedilol (Coreg) 6.25 mg PO Q12 [facility] Last Admin: 11/18/18 09:30 Dose: 6.25 mg Clonidine HCl (Catapres) 0.1 mg PO BID [facility] Last Admin: 11/18/18 09:29 Dose: 0.1 mg Epoetin Destni (Procrit) 10,000 unit IV MWF [facility] Last Admin: 11/17/18 14:00 Dose: 10,000 unit Ergocalciferol (Drisdol 50,000 Intl Units Cap) 1 cap PO Q7D [facility] Last Admin: 11/13/18 00:29 Dose: 1 cap Heparin Sodium (Porcine) (Heparin) 5,000 units SC Q12 [facility]; Protocol Last Admin: 11/15/18 22:18 Dose: 5,000 units Hydralazine HCl (Apresoline) 10 mg IV Q6 PRN PRN Reason: Systolic Blood Pressure Last Admin: 11/13/18 17:31 Dose: 10 mg Hydralazine HCl (Apresoline) 25 mg PO Q8H [facility] Iron Sucrose 100 mg/ Sodium (Chloride) 105 mls @ 105 mls/hr IVPB DAILY [facility] Stop: 11/25/18 09:59 Last Admin: 11/18/18 09:32 Dose: 105 mls/hr Vitamin B Complex/Vit C/Folic Acid (Nephro-Yuridia) 1 tab PO DAILY [facility] Last Admin: 11/18/18 09:30 Dose: 1 tab - Labs Labs: 11/17/18 05:30 11/18/18 05:30 PT 12.2 Seconds (9.8-13.1) 11/14/18 08:55 INR 1.1 11/14/18 08:55 APTT 45.5 Seconds (25.6-37.1) H 11/14/18 08:55 Attending/Attestation - Attestation I have personally seen and examined this patient.: Yes I have fully participated in the care of the patient.: Yes I have reviewed all pertinent clinical information, including history, physical exam and plan: Yes
--- NOTE | 2018-11-18 20:51 | CP.PCM.PN ---
Subjective - Date & Time of Evaluation Date of Evaluation: 11/18/18 Time of Evaluation: 15:00 - Subjective Subjective: Patient reports feeling well; no sob; tolerating diet; urinating well; Objective - Vital Signs/Intake and Output Vital Signs (last 24 hours): Temp Pulse Resp BP Pulse Ox 97.7 F 70 18 134/84 100 11/18/18 16:47 11/18/18 16:57 11/18/18 16:47 11/18/18 16:57 11/18/18 16:47 - Medications Medications: Current Medications Calcitriol (Rocaltrol) 0.5 mcg PO DAILY [facility] Last Admin: 11/18/18 09:32 Dose: 0.5 mcg Calcium Acetate (Phoslo) 1,334 mg PO WM [facility] Last Admin: 11/18/18 18:23 Dose: 1,334 mg Carvedilol (Coreg) 6.25 mg PO Q12 [facility] Last Admin: 11/18/18 09:30 Dose: 6.25 mg Clonidine HCl (Catapres) 0.1 mg PO BID [facility] Last Admin: 11/18/18 16:57 Dose: 0.1 mg Epoetin Destin (Procrit) 10,000 unit IV MWF [facility] Last Admin: 11/17/18 14:00 Dose: 10,000 unit Ergocalciferol (Drisdol 50,000 Intl Units Cap) 1 cap PO Q7D [facility] Last Admin: 11/13/18 00:29 Dose: 1 cap Heparin Sodium (Porcine) (Heparin) 5,000 units SC Q12 [facility]; Protocol Last Admin: 11/15/18 22:18 Dose: 5,000 units Hydralazine HCl (Apresoline) 10 mg IV Q6 PRN PRN Reason: Systolic Blood Pressure Last Admin: 11/13/18 17:31 Dose: 10 mg Hydralazine HCl (Apresoline) 25 mg PO Q8H [facility] Last Admin: 11/18/18 14:00 Dose: 25 mg Iron Sucrose 100 mg/ Sodium (Chloride) 105 mls @ 105 mls/hr IVPB DAILY [facility] Stop: 11/25/18 09:59 Last Admin: 11/18/18 09:32 Dose: 105 mls/hr Vitamin B Complex/Vit C/Folic Acid (Nephro-Yuridia) 1 tab PO DAILY [facility] Last Admin: 11/18/18 09:30 Dose: 1 tab - Labs Labs: 11/17/18 05:30 11/18/18 05:30 PT 12.2 Seconds (9.8-13.1) 11/14/18 08:55 INR 1.1 11/14/18 08:55 APTT 45.5 Seconds (25.6-37.1) H 11/14/18 08:55 - Constitutional Appears: Non-toxic, No Acute Distress - Eye Exam Eye Exam: Normal appearance - Respiratory Exam Respiratory Exam: Clear to Ausculation Bilateral. absent: Respiratory Distress - Cardiovascular Exam Cardiovascular Exam: RRR, +S1, +S2 - GI/Abdominal Exam GI & Abdominal Exam: Soft. absent: Distended, Tenderness - Extremities Exam Additional comments: mild leg edema; - Neurological Exam Neurological Exam: Alert, Awake - Psychiatric Exam Psychiatric exam: Normal Affect, Normal Mood. absent: Agitated - Skin Skin Exam: Warm. absent: Cyanosis Assessment and Plan (1) ESRD (end stage renal disease) Assessment & Plan: Stable volume and electrolyte status; next HD on Tuesday, will keep on MWF schedule; awaiting outpatient HD setup; Status: Acute (2) Hypertensive emergency Status: Resolved (3) Anemia of renal disease Assessment & Plan: Hgb improved, getting IV iron and EPO on HD; Status: Acute (4) Chronic kidney disease-mineral and bone disorder Assessment & Plan: Calcium improved; continue calcitriol 0.5 mcg daily; continue phoslo 2 tabs w/ meals; Status: Acute (5) CHF (congestive heart failure) Assessment & Plan: Diastolic dysfunction, continue adequate BP control; Status: Resolved (6) Hypertensive CKD, ESRD on dialysis Assessment & Plan: BP controlled, continue current meds; Status: Acute
[2018-11-19 07:55] LABS: CALCIUM 8.2 mg/dL (8.4-10.2)
--- NOTE | 2018-11-19 11:25 | CP.PCM.PN ---
Subjective - Date & Time of Evaluation Date of Evaluation: 11/19/18 Time of Evaluation: 11:25 - Subjective Subjective: Patient seen sitting up in chair watching TV. No new complaints, tolerating PO diet and denies chest pain, shortness of breath, nausea, and vomiting. NExt dialysis tomorrow, Monday 11/20. Objective - Vital Signs/Intake and Output Vital Signs (last 24 hours): Temp Pulse Resp BP Pulse Ox 98 F 77 20 139/84 98 11/19/18 08:09 11/19/18 08:37 11/19/18 08:09 11/19/18 08:37 11/19/18 08:09 - Medications Medications: Current Medications Calcitriol (Rocaltrol) 0.5 mcg PO DAILY [facility] Last Admin: 11/19/18 08:38 Dose: 0.5 mcg Calcium Acetate (Phoslo) 1,334 mg PO WM [facility] Last Admin: 11/19/18 08:38 Dose: 1,334 mg Carvedilol (Coreg) 6.25 mg PO Q12 [facility] Last Admin: 11/19/18 08:37 Dose: 6.25 mg Clonidine HCl (Catapres) 0.1 mg PO BID [facility] Last Admin: 11/19/18 08:36 Dose: 0.1 mg Epoetin Destin (Procrit) 10,000 unit IV MWF [facility] Last Admin: 11/17/18 14:00 Dose: 10,000 unit Ergocalciferol (Drisdol 50,000 Intl Units Cap) 1 cap PO Q7D [facility] Last Admin: 11/13/18 00:29 Dose: 1 cap Heparin Sodium (Porcine) (Heparin) 5,000 units SC Q12 [facility]; Protocol Last Admin: 11/19/18 08:37 Dose: 5,000 units Hydralazine HCl (Apresoline) 10 mg IV Q6 PRN PRN Reason: Systolic Blood Pressure Last Admin: 11/13/18 17:31 Dose: 10 mg Hydralazine HCl (Apresoline) 25 mg PO Q8H [facility] Last Admin: 11/19/18 06:17 Dose: 25 mg Iron Sucrose 100 mg/ Sodium (Chloride) 105 mls @ 105 mls/hr IVPB DAILY [facility] Stop: 11/25/18 09:59 Last Admin: 11/19/18 09:36 Dose: 105 mls/hr Vitamin B Complex/Vit C/Folic Acid (Nephro-Yuridia) 1 tab PO DAILY [facility] Last Admin: 11/18/18 09:30 Dose: 1 tab - Labs Labs: 11/17/18 05:30 11/19/18 05:30 PT 12.2 Seconds (9.8-13.1) 11/14/18 08:55 INR 1.1 11/14/18 08:55 APTT 45.5 Seconds (25.6-37.1) H 11/14/18 08:55 - Constitutional Appears: Non-toxic, No Acute Distress - Head Exam Head Exam: NORMAL INSPECTION - Eye Exam Eye Exam: Normal appearance - ENT Exam ENT Exam: Mucous Membranes Moist - Neck Exam Neck Exam: Normal Inspection - Respiratory Exam Respiratory Exam: NORMAL BREATHING PATTERN. absent: Respiratory Distress Additional comments: HD cath noted - dry and clean, surrounding area non-erythematous and non-tender - Cardiovascular Exam Cardiovascular Exam: REGULAR RHYTHM - GI/Abdominal Exam GI & Abdominal Exam: Soft. absent: Tenderness - Neurological Exam Neurological Exam: Alert, Awake, Oriented x3 - Psychiatric Exam Psychiatric exam: Normal Affect, Normal Mood - Skin Skin Exam: Dry, Intact, Normal Color, Warm Assessment and Plan - Assessment and Plan (Free Text) Assessment: 32 yo M with hx hypertension, prior dx ESRD (with refusal of kidney biopsy and permanent dialysis access placement), admitted for hypertensive emergency and requiring hemodialysis. BP was stabilized with labetalol, hydralazine and nicardipine drip. Blurred vision resolved. On admission: BUN 108, Cr 14.6; Labs showed Ca 5.9, Phos 9.6, Mg 1.9; Transaminitis, proBNP > [phone] Has been getting daily dialysis since admission- this am Cr down to 5.4, BUN 20. Right IJ shiley placed on admission; had HD 11/13, 11/14, 11/15 11/16, 11/17. HD MWF. 11/16 - removal of right IJ shiley and placement of tunneled HD catheter by IR. Echo: Mild-moderate concentric LVH, LV function low normal. EF 50-55%. Moderate pericardial effusion with no signs of tamponade. As per cardio, will need echo in 4 weeks after established HD schedule to eval effusion. Awaiting placement for permanent HD spot in community. Last HD 11/17; Next HD Tuesday, 11/20. Plan: ESRD requiring hemodialyis - Nephrology: Dr. Yang (09/19): stable volume and electrolyte status; will keep on MWF schedule; awaiting outpatient HD setup - HD last 5 days, BUN/Cr trending down, continue to monitor for BUN/Cr improvement - As per nephro, will now start HD MWF schedule - Has permanent HD cath - Right IJ via chest - Needs placement for outpatient HD upon discharge - Renal diet Hypertensive emergency - Echo with EF 50-55%, elevated proBNP, effusion: cardiology consulted, Dr. Hamlin, input and recs appreciated; will need echo 4 weeks after admision after established HD schedule to eval effusion - Continue with Carvedilol 6.25 mg BID; hydralazine decreased to 25 mg Q8h, clonidine 0.2 mg BID - Monitor for worsening of symptoms/end organ damage, vitals Anemia - Normocytic; likely 2/2 ESRD - EPO MWF as ordered by nephro - IV iron - Monitor CBC Hypokalemia - Resolved now; K 4.4 on this morning labs Mineral and Bone disorder in setting of ESRD - As per nephrology - continue calcitriol 0.5 mcg daily; continue phoslo 2 tabs w/ meals - Monitor phos periodically (goal <5.5) Transaminitis - AST, ALT normalized DVT prophylaxis - Heparin Q12 - Encourage OOBTC
[2018-11-19] MEDS: Multivitamin Vitamin B Complex (Nephro-Vite) Tab PO SCH (14:12)
[2018-11-19] MEDS: Ergocalciferol 50,000 Intl Units Cap PO SCH (23:09)
[2018-11-20 07:37] LABS: ALBUMIN 2.6 g/dL (3.5-5.0); CALCIUM 7.8 mg/dL (8.4-10.2)
[2018-11-20] MEDS: Multivitamin Vitamin B Complex (Nephro-Vite) Tab PO SCH (09:27)
--- NOTE | 2018-11-20 10:13 | CP.PCM.PN ---
Subjective - Date & Time of Evaluation Date of Evaluation: 11/20/18 Time of Evaluation: 09:40 - Subjective Subjective: Patient seen sitting up in chair, looking at newspaper. Does not have any new complaints. Pt asked when he would be able to be d/c- discussed with patient that he needs placement in community for HD. Due for dialysis today. Objective - Vital Signs/Intake and Output Vital Signs (last 24 hours): Temp Pulse Resp BP Pulse Ox 97.6 F 76 20 139/80 99 11/20/18 09:09 11/20/18 09:09 11/20/18 09:09 11/20/18 09:09 11/20/18 09:09 - Medications Medications: Current Medications Calcitriol (Rocaltrol) 0.5 mcg PO DAILY ON [facility] OF [facility] Last Admin: 11/20/18 09:28 Dose: 0.5 mcg Calcium Acetate (Phoslo) 1,334 mg PO WM ON [facility] OF [facility] Last Admin: 11/20/18 09:27 Dose: 1,334 mg Carvedilol (Coreg) 6.25 mg PO Q12 ON [facility] OF [facility] Last Admin: 11/19/18 21:39 Dose: 6.25 mg Clonidine HCl (Catapres) 0.1 mg PO BID ON [facility] OF [facility] Last Admin: 11/19/18 18:09 Dose: 0.1 mg Epoetin Destin (Procrit) 10,000 unit IV MWF ON [facility] OF [facility] Last Admin: 11/17/18 14:00 Dose: 10,000 unit Ergocalciferol (Drisdol 50,000 Intl Units Cap) 1 cap PO Q7D ON [facility] OF [facility] Last Admin: 11/19/18 23:09 Dose: 1 cap Heparin Sodium (Porcine) (Heparin) 5,000 units SC Q12 ON [facility] OF [facility]; Protocol Last Admin: 11/20/18 09:27 Dose: 5,000 units Hydralazine HCl (Apresoline) 10 mg IV Q6 PRN PRN Reason: Systolic Blood Pressure Last Admin: 11/13/18 17:31 Dose: 10 mg Hydralazine HCl (Apresoline) 25 mg PO Q8H ON [facility] Last Admin: 11/20/18 06:52 Dose: 25 mg Iron Sucrose 100 mg/ Sodium (Chloride) 105 mls @ 105 mls/hr IVPB DAILY [facility] Stop: 11/25/18 09:59 Last Admin: 11/20/18 09:28 Dose: 105 mls/hr Vitamin B Complex/Vit C/Folic Acid (Nephro-Yuridia) 1 tab PO DAILY [facility] Last Admin: 11/20/18 09:27 Dose: 1 tab - Labs Labs: 11/17/18 05:30 11/20/18 05:40 PT 12.2 Seconds (9.8-13.1) 11/14/18 08:55 INR 1.1 11/14/18 08:55 APTT 45.5 Seconds (25.6-37.1) H 11/14/18 08:55 - Constitutional Appears: No Acute Distress - Head Exam Head Exam: NORMAL INSPECTION - Eye Exam Eye Exam: Normal appearance - Respiratory Exam Respiratory Exam: NORMAL BREATHING PATTERN - Cardiovascular Exam Cardiovascular Exam: REGULAR RHYTHM - Extremities Exam Extremities Exam: Normal Inspection Additional comments: trace pedal edema - Neurological Exam Neurological Exam: Alert, Oriented x3 - Skin Skin Exam: Dry, Warm - Additional Findings Additional findings: + HD catheder R chest Assessment and Plan - Assessment and Plan (Free Text) Assessment: 32 yo M with hx hypertension, prior dx ESRD (with refusal of kidney biopsy and permanent dialysis access placement), admitted for hypertensive emergency and requiring hemodialysis. BP was stabilized with labetalol, hydralazine and nicardipine drip. Blurred vision resolved. On admission: BUN 108, Cr 14.6; Labs showed Ca 5.9, Phos 9.6, Mg 1.9; Transaminitis, proBNP > 61661 With daily HD, on 11/18 Cr had come down to 5.4, BUN to 20, after LAST HD on Friday 11/17. Today Cr 8.6 BUN 39; due for HD today. Right IJ shiley placed on admission; had HD 11/13, 11/14, 11/15 11/16, 11/17. HD MWF. 11/16 - removal of right IJ shiley and placement of tunneled HD catheter by IR. Echo: Mild-moderate concentric LVH, LV function low normal. EF 50-55%. Moderate pericardial effusion with no signs of tamponade. As per cardio, will need echo in 4 weeks after established HD schedule to eval effusion. Awaiting placement for permanent HD spot in community. Vein mapping ordered. Plan: ESRD requiring hemodialyis - Nephrology: Dr. Yang (09/19): stable volume and electrolyte status; had 5 days dialysis on admission; will keep on MWF schedule - Has permanent HD cath - Right IJ via chest - Vein mapping ordered - Needs placement for outpatient HD upon discharge - Renal diet - HD today Hypertensive emergency - Echo with EF 50-55%, elevated proBNP, effusion: cardiology consulted, Dr. Hamlin, input and recs appreciated; will need echo 4 weeks after admision after established HD schedule to eval effusion - Continue with Carvedilol 6.25 mg BID; hydralazine decreased to 25 mg Q8h, clonidine 0.1 mg BID - Monitor for worsening of symptoms/end organ damage, vitals Anemia - Normocytic; likely 2/2 ESRD - EPO MWF as ordered by nephro - Venofer daily x 10 days, started on 11/16 by nephrology - Monitor CBC Mineral and Bone disorder in setting of ESRD - As per nephrology - continue calcitriol 0.5 mcg daily; continue phoslo 2 tabs w/ meals - Monitor phos periodically (goal <5.5); today 5.4 Transaminitis - AST, ALT normalized Hypokalemia - Resolved DVT prophylaxis - Heparin Q12 - Encourage OOBTC
[2018-11-20] MEDS: EPOETIN ALFA 10,000 UNIT/ML ML IV SCH (16:35)
[2018-11-21 06:43] LABS: CALCIUM 8.1 mg/dL (8.4-10.2)
--- NOTE | 2018-11-21 08:05 | CP.PCM.PN ---
Subjective - Date & Time of Evaluation Date of Evaluation: 11/20/18 Time of Evaluation: 13:00 - Subjective Subjective: Patient seen before HD today; reports feeling well; no sob; tolerating diet; urinating well; Objective - Vital Signs/Intake and Output Vital Signs (last 24 hours): Temp Pulse Resp BP Pulse Ox 97.5 F L 81 19 151/92 H 99 11/21/18 00:05 11/21/18 05:36 11/21/18 00:05 11/21/18 05:36 11/21/18 00:05 - Medications Medications: Current Medications Calcitriol (Rocaltrol) 0.5 mcg PO DAILY [facility] Last Admin: 11/20/18 09:28 Dose: 0.5 mcg Calcium Acetate (Phoslo) 1,334 mg PO WM [facility] Last Admin: 11/20/18 18:31 Dose: 1,334 mg Carvedilol (Coreg) 6.25 mg PO Q12 [facility] Last Admin: 11/20/18 20:22 Dose: 6.25 mg Clonidine HCl (Catapres) 0.1 mg PO BID [facility] Last Admin: 11/20/18 18:30 Dose: 0.1 mg Epoetin Destin (Procrit) 10,000 unit IV MWF [facility] Last Admin: 11/20/18 16:35 Dose: 10,000 unit Ergocalciferol (Drisdol 50,000 Intl Units Cap) 1 cap PO Q7D [facility] Last Admin: 11/19/18 23:09 Dose: 1 cap Heparin Sodium (Porcine) (Heparin) 5,000 units SC Q12 [facility]; Protocol Last Admin: 11/20/18 20:22 Dose: 5,000 units Hydralazine HCl (Apresoline) 10 mg IV Q6 PRN PRN Reason: Systolic Blood Pressure Last Admin: 11/13/18 17:31 Dose: 10 mg Hydralazine HCl (Apresoline) 25 mg PO Q8H [facility] Last Admin: 11/21/18 05:36 Dose: 25 mg Iron Sucrose 100 mg/ Sodium (Chloride) 105 mls @ 105 mls/hr IVPB DAILY [facility] Stop: 11/25/18 09:59 Last Admin: 11/20/18 09:28 Dose: 105 mls/hr Vitamin B Complex/Vit C/Folic Acid (Nephro-Yuridia) 1 tab PO DAILY [facility] Last Admin: 11/20/18 09:27 Dose: 1 tab - Labs Labs: 11/17/18 05:30 11/21/18 05:45 PT 12.2 Seconds (9.8-13.1) 11/14/18 08:55 INR 1.1 11/14/18 08:55 APTT 45.5 Seconds (25.6-37.1) H 11/14/18 08:55 - Constitutional Appears: Non-toxic, No Acute Distress - Eye Exam Eye Exam: Normal appearance - Respiratory Exam Respiratory Exam: Clear to Ausculation Bilateral. absent: Respiratory Distress - Cardiovascular Exam Cardiovascular Exam: RRR, +S1, +S2 - GI/Abdominal Exam GI & Abdominal Exam: Soft. absent: Distended, Tenderness - Extremities Exam Additional comments: mild lower leg edema; - Neurological Exam Neurological Exam: Alert, Awake - Psychiatric Exam Psychiatric exam: Normal Mood. absent: Agitated - Skin Skin Exam: Warm. absent: Cyanosis Assessment and Plan (1) ESRD (end stage renal disease) Assessment & Plan: Stable volume and electrolyte status; on MWF HD schedule, set for now treatment later today; awaiting outpatient placement; Status: Acute (2) Anemia of renal disease Assessment & Plan: Hgb below goal, continue IV iron loading and EPO on HD; Status: Acute (3) Chronic kidney disease-mineral and bone disorder Assessment & Plan: Calcium stable, continue calcitriol; phos at goal (<5.5), continue phoslo 2 tabs w/meals; Status: Acute (4) CHF (congestive heart failure) Status: Resolved (5) Hypertensive CKD, ESRD on dialysis Assessment & Plan: BP controlled on current meds, continue same; Status: Acute (6) Hypertensive emergency Status: Resolved
[2018-11-21] MEDS: Multivitamin Vitamin B Complex (Nephro-Vite) Tab PO SCH (11:23)
--- NOTE | 2018-11-21 12:01 | CP.PCM.PN ---
Subjective - Date & Time of Evaluation Date of Evaluation: 11/21/18 Time of Evaluation: 09:30 - Subjective Subjective: Patient seen sitting up in chair, using hospital room table to talk on social media with friend. No new complaints today; reports that yesterday he could tell that he was feeling "different," but after dialysis the feeling went away. No chest pain, no SOB. He states he understands why he needs dialysis. Objective - Vital Signs/Intake and Output Vital Signs (last 24 hours): Temp Pulse Resp BP Pulse Ox 97.8 F 79 20 154/86 H 97 11/21/18 08:21 11/21/18 11:24 11/21/18 08:21 11/21/18 11:24 11/21/18 08:21 - Medications Medications: Current Medications Amlodipine Besylate (Norvasc) 5 mg PO DAILY [facility] Bumetanide (Bumex) 3 mg IVP DAILY [facility] Calcitriol (Rocaltrol) 0.5 mcg PO DAILY [facility] Last Admin: 11/21/18 11:22 Dose: 0.5 mcg Calcium Acetate (Phoslo) 1,334 mg PO WM [facility] Last Admin: 11/21/18 11:23 Dose: 1,334 mg Carvedilol (Coreg) 6.25 mg PO Q12 [facility] Last Admin: 11/21/18 11:23 Dose: 6.25 mg Clonidine HCl (Catapres) 0.1 mg PO BID [facility] Last Admin: 11/21/18 11:24 Dose: 0.1 mg Epoetin Destin (Procrit) 10,000 unit IV MWF [facility] Last Admin: 11/20/18 16:35 Dose: 10,000 unit Ergocalciferol (Drisdol 50,000 Intl Units Cap) 1 cap PO Q7D [facility] Last Admin: 11/19/18 23:09 Dose: 1 cap Heparin Sodium (Porcine) (Heparin) 5,000 units SC Q12 [facility]; Protocol Last Admin: 11/21/18 11:22 Dose: 5,000 units Hydralazine HCl (Apresoline) 10 mg IV Q6 PRN PRN Reason: Systolic Blood Pressure Last Admin: 11/13/18 17:31 Dose: 10 mg Hydralazine HCl (Apresoline) 25 mg PO Q8H [facility] Last Admin: 11/21/18 05:36 Dose: 25 mg Iron Sucrose 100 mg/ Sodium (Chloride) 105 mls @ 105 mls/hr IVPB DAILY [facility] Stop: 11/25/18 09:59 Last Admin: 11/21/18 11:29 Dose: 105 mls/hr Vitamin B Complex/Vit C/Folic Acid (Nephro-Yuridia) 1 tab PO DAILY [facility] Last Admin: 11/21/18 11:23 Dose: 1 tab - Labs Labs: 11/17/18 05:30 11/21/18 05:45 PT 12.2 Seconds (9.8-13.1) 11/14/18 08:55 INR 1.1 11/14/18 08:55 APTT 45.5 Seconds (25.6-37.1) H 11/14/18 08:55 - Constitutional Appears: No Acute Distress - Head Exam Head Exam: NORMAL INSPECTION - Respiratory Exam Respiratory Exam: Clear to Ausculation Bilateral, NORMAL BREATHING PATTERN - Cardiovascular Exam Cardiovascular Exam: REGULAR RHYTHM, +S1, +S2 - Extremities Exam Additional comments: less pedal edema - Neurological Exam Neurological Exam: Alert, Oriented x3 - Skin Skin Exam: Dry, Warm - Additional Findings Additional findings: + HD catheder R chest, clean, dry, intact Assessment and Plan - Assessment and Plan (Free Text) Assessment: 32 yo M with hx hypertension, prior dx ESRD (with refusal of kidney biopsy and permanent dialysis access placement), admitted for hypertensive emergency and requiring hemodialysis. BP was stabilized with labetalol, hydralazine and nicardipine drip. Blurred vision resolved. On admission: BUN 108, Cr 14.6; Labs showed Ca 5.9, Phos 9.6, Mg 1.9; Transaminitis, proBNP > 23518 With daily HD, on 11/18 Cr had come down to 5.4, BUN to 20. Prior to HD yest 11/20, Cr up to 8.6, BUN 39. Today Cr 5.8, BUN 21. Right IJ shiley placed on admission; had HD 11/13, 11/14, 11/15 11/16, 11/17. Then started with HD MWF schedule starting 11/20. 11/16 - removal of right IJ shiley and placement of tunneled HD catheter by IR. Echo on admission: Mild-moderate concentric LVH, LV function low normal. EF 50- 55%. Moderate pericardial effusion with no signs of tamponade. As per cardio, will need echo in 4 weeks after established HD schedule to eval effusion. Awaiting placement for permanent HD spot in community. Vein mapping ordered. Plan: ESRD requiring hemodialyis - Nephrology: Dr. Yang: stable volume and electrolyte status; had 5 days dialysis on admission; will keep on MWF schedule - Has permanent HD cath - Right IJ via chest - Vein mapping ordered - Needs placement for outpatient HD upon discharge - Renal diet - HD MWF Hypertensive emergency - Echo with EF 50-55%, elevated proBNP, effusion: cardiology consulted, Dr. Hamlin, input and recs appreciated; will need echo 4 weeks after admision after established HD schedule to eval effusion - Continue with Carvedilol 6.25 mg BID; hydralazine decreased to 25 mg Q8h, clonidine 0.1 mg BID - Monitor for worsening of symptoms/end organ damage, vitals Anemia - Normocytic; likely 2/2 ESRD - EPO MWF as ordered by nephro - Venofer daily x 10 days, started on 11/16 by nephrology - Monitor CBC Mineral and Bone disorder in setting of ESRD - As per nephrology - continue calcitriol 0.5 mcg daily; continue phoslo 2 tabs w/ meals - Monitor phos periodically (goal <5.5); last on 11/20: 5.4 Transaminitis - AST, ALT normalized Hypokalemia - Resolved DVT prophylaxis - Heparin Q12 - Encourage OOBTC
--- NOTE | 2018-11-21 18:49 | CP.PCM.PN ---
Subjective - Date & Time of Evaluation Date of Evaluation: 11/21/18 Time of Evaluation: 13:00 - Subjective Subjective: Patient reports feeling well; no sob; tolerating diet; Objective - Vital Signs/Intake and Output Vital Signs (last 24 hours): Temp Pulse Resp BP Pulse Ox 97.5 F L 71 20 150/90 98 11/21/18 16:15 11/21/18 18:42 11/21/18 16:15 11/21/18 18:42 11/21/18 16:15 - Medications Medications: Current Medications Amlodipine Besylate (Norvasc) 10 mg PO DAILY [facility] Bumetanide (Bumex) 3 mg IVP DAILY [facility] Last Admin: 11/21/18 14:14 Dose: 3 mg Calcitriol (Rocaltrol) 0.5 mcg PO DAILY [facility] Last Admin: 11/21/18 11:22 Dose: 0.5 mcg Calcium Acetate (Phoslo) 1,334 mg PO WM [facility] Last Admin: 11/21/18 18:43 Dose: 1,334 mg Carvedilol (Coreg) 6.25 mg PO Q12 [facility] Last Admin: 11/21/18 11:23 Dose: 6.25 mg Clonidine HCl (Catapres) 0.1 mg PO BID [facility] Last Admin: 11/21/18 18:42 Dose: 0.1 mg Epoetin Destin (Procrit) 10,000 unit IV MWF [facility] Last Admin: 11/20/18 16:35 Dose: 10,000 unit Ergocalciferol (Drisdol 50,000 Intl Units Cap) 1 cap PO Q7D [facility] Last Admin: 11/19/18 23:09 Dose: 1 cap Heparin Sodium (Porcine) (Heparin) 5,000 units SC Q12 [facility]; Protocol Last Admin: 11/21/18 11:22 Dose: 5,000 units Hydralazine HCl (Apresoline) 10 mg IV Q6 PRN PRN Reason: Systolic Blood Pressure Last Admin: 11/13/18 17:31 Dose: 10 mg Hydralazine HCl (Apresoline) 25 mg PO Q8H [facility] Last Admin: 11/21/18 14:16 Dose: 25 mg Iron Sucrose 100 mg/ Sodium (Chloride) 105 mls @ 105 mls/hr IVPB DAILY [facility] Stop: 11/25/18 09:59 Last Admin: 11/21/18 11:29 Dose: 105 mls/hr Vitamin B Complex/Vit C/Folic Acid (Nephro-Yuridia) 1 tab PO DAILY [facility] Last Admin: 11/21/18 11:23 Dose: 1 tab - Labs Labs: 11/17/18 05:30 11/21/18 05:45 PT 12.2 Seconds (9.8-13.1) 11/14/18 08:55 INR 1.1 11/14/18 08:55 APTT 45.5 Seconds (25.6-37.1) H 11/14/18 08:55 - Constitutional Appears: Non-toxic, No Acute Distress - Eye Exam Eye Exam: Normal appearance - Respiratory Exam Respiratory Exam: Clear to Ausculation Bilateral. absent: Respiratory Distress - Cardiovascular Exam Cardiovascular Exam: RRR, +S1, +S2 - GI/Abdominal Exam GI & Abdominal Exam: Soft. absent: Distended, Tenderness - Extremities Exam Additional comments: mild lower leg edema; - Neurological Exam Neurological Exam: Alert, Awake - Psychiatric Exam Psychiatric exam: Normal Mood. absent: Agitated - Skin Skin Exam: Warm. absent: Cyanosis Assessment and Plan (1) ESRD (end stage renal disease) Assessment & Plan: Stable volume and electrolyte status; continuing with MWF HD schedule while here; awaiting outpatient HD setup; recommend to get labs only on HD days; Status: Acute (2) Anemia of renal disease Assessment & Plan: On IV iron loading and EPO with HD, continue; Status: Acute (3) Chronic kidney disease-mineral and bone disorder Assessment & Plan: Hypocalcemia and hyperparathryoidism improved; continue calcitriol 0.5 mcg daily; continue phoslo with meals; Status: Acute (4) CHF (congestive heart failure) Status: Resolved (5) Hypertensive CKD, ESRD on dialysis Assessment & Plan: BP elevated today; adding amlodipine 10 mg; will try to simplify drug regimen in patient who likely will have issues with compliance; Status: Acute (6) Hypertensive emergency Status: Resolved
[2018-11-22 06:53] LABS: EOS # 0.2 K/uL (0.0-0.7); EOS % 4.1 % (0.0-4.0); HEMOGLOBIN 8.8 g/dL (12.0-18.0); LYMPH % 20.3 % (20.0-40.0); MEAN CELL VOLUME 92.3 fl (80.0-94.0); MEAN CORPUSCULAR HEMOGLOBIN 30.3 pg (27.0-31.0); MEAN CORPUSCULAR HGB CONC 32.9 g/dL (33.0-37.0); MEAN PLATELET VOLUME 8.1 fl (7.2-11.7); MONO # 0.7 K/uL (0.0-0.8); NEUT # 2.9 K/uL (1.8-7.0); NEUT % 59.6 % (50.0-75.0); NRBC % 0.1 % (0.0-0.0); RBC 2.89 Mil/uL (4.40-5.90); RED CELL DISTRIBUTION WIDTH 14.8 % (11.5-14.5); WHITE BLOOD COUNT 4.9 K/uL (4.8-10.8)
[2018-11-22 07:24] LABS: CALCIUM 8.3 mg/dL (8.4-10.2)
[2018-11-22] MEDS: Multivitamin Vitamin B Complex (Nephro-Vite) Tab PO SCH (08:47)
[2018-11-22] MEDS: EPOETIN ALFA 10,000 UNIT/ML ML IV SCH (08:50)
--- NOTE | 2018-11-22 09:15 | CP.PCM.PN ---
Subjective - Date & Time of Evaluation Date of Evaluation: 11/22/18 Time of Evaluation: 08:00 - Subjective Subjective: No acute overnight events. Pt seen and examined this morning. No complaints. Discussed plan for vein mapping for AVF. Pt verbalizes understanding. Plan for hemodialysis today. Objective - Vital Signs/Intake and Output Vital Signs (last 24 hours): Temp Pulse Resp BP Pulse Ox 97.6 F 73 20 135/78 99 11/22/18 07:51 11/22/18 07:51 11/22/18 07:51 11/22/18 07:51 11/22/18 07:51 - Medications Medications: Current Medications Amlodipine Besylate (Norvasc) 10 mg PO DAILY [facility] Bumetanide (Bumex) 3 mg IVP DAILY [facility] Last Admin: 11/22/18 08:48 Dose: 3 mg Calcitriol (Rocaltrol) 0.5 mcg PO DAILY [facility] Last Admin: 11/22/18 08:46 Dose: 0.5 mcg Calcium Acetate (Phoslo) 1,334 mg PO WM [facility] Last Admin: 11/22/18 08:46 Dose: 1,334 mg Carvedilol (Coreg) 6.25 mg PO Q12 [facility] Last Admin: 11/22/18 08:45 Dose: Not Given Clonidine HCl (Catapres) 0.1 mg PO BID [facility] Last Admin: 11/22/18 08:44 Dose: Not Given Epoetin Destin (Procrit) 10,000 unit IV MWF [facility] Last Admin: 11/22/18 08:50 Dose: 10,000 unit Ergocalciferol (Drisdol 50,000 Intl Units Cap) 1 cap PO Q7D [facility] Last Admin: 11/19/18 23:09 Dose: 1 cap Heparin Sodium (Porcine) (Heparin) 5,000 units SC Q12 [facility]; Protocol Last Admin: 11/22/18 08:45 Dose: 5,000 units Hydralazine HCl (Apresoline) 10 mg IV Q6 PRN PRN Reason: Systolic Blood Pressure Last Admin: 11/13/18 17:31 Dose: 10 mg Hydralazine HCl (Apresoline) 25 mg PO Q8H [facility] Last Admin: 11/22/18 05:50 Dose: 25 mg Iron Sucrose 100 mg/ Sodium (Chloride) 105 mls @ 105 mls/hr IVPB DAILY [facility] Stop: 11/25/18 09:59 Last Admin: 11/22/18 08:46 Dose: 105 mls/hr Vitamin B Complex/Vit C/Folic Acid (Nephro-Yuridia) 1 tab PO DAILY [facility] Last Admin: 11/22/18 08:47 Dose: 1 tab - Labs Labs: 11/22/18 06:10 11/22/18 06:10 PT 12.2 Seconds (9.8-13.1) 11/14/18 08:55 INR 1.1 11/14/18 08:55 APTT 45.5 Seconds (25.6-37.1) H 11/14/18 08:55 - Constitutional Appears: No Acute Distress - Eye Exam Eye Exam: Normal appearance - ENT Exam ENT Exam: Mucous Membranes Moist - Neck Exam Neck Exam: Full ROM - Respiratory Exam Respiratory Exam: Clear to Ausculation Bilateral. absent: Accessory Muscle Use, Rales, Wheezes - Cardiovascular Exam Cardiovascular Exam: REGULAR RHYTHM, +S1, +S2 Additional comments: Right IJ catheter - GI/Abdominal Exam GI & Abdominal Exam: Soft, Normal Bowel Sounds. absent: Tenderness - Extremities Exam Extremities Exam: absent: Pedal Edema - Neurological Exam Neurological Exam: Alert - Psychiatric Exam Psychiatric exam: Normal Affect - Skin Skin Exam: Normal Color Assessment and Plan - Assessment and Plan (Free Text) Assessment: 32 yo M with hx hypertension, prior dx ESRD (with refusal of kidney biopsy and permanent dialysis access placement) in September of 2018, re-aadmitted for hypertensive emergency and Acute Renal Failure requiring hemodialysis. BP now stabilized with labetalol, hydralazine and nicardipine drip. Right IJ shiley placed on admission and receiving HD MWF. Currently stable and awaiting HD placement. Vein mapping ordered. Plan: ESRD requiring hemodialyis - Nephrology: Dr. Yang: HD will keep on MWF schedule. Pt started on Bumex 3mg IVP daily - Has permanent HD cath - Right IJ via chest - Vein mapping ordered - Needs placement for outpatient HD upon discharge - Renal diet - HD MWF Hypertensive emergency - Cardiology consulted, Dr. Hamlin, input and recs appreciated - Continue with Carvedilol 6.25 mg BID; hydralazine 25 mg Q8h, clonidine 0.1 mg BID - Monitor for worsening of symptoms/end organ damage, vitals Anemia - Normocytic; likely 2/2 ESRD - EPO MWF as ordered by nephro - Venofer daily x 10 days, started on 11/16 by nephrology - Monitor CBC, today H/H: 8.8/26.7 Mineral and Bone disorder in setting of ESRD - As per nephrology - continue calcitriol 0.5 mcg daily; continue phoslo 2 tabs w/ meals - Monitor phos periodically (goal <5.5); last on 11/20: 5.4 Pericardial Effusion -Moderate, asymptomatic -Noted on Echo -Will need echo 4 weeks after admission as per Cardio Transaminitis - AST, ALT normalized DVT prophylaxis - Heparin Q12 - Encourage OOBTC
--- NOTE | 2018-11-22 21:55 | CP.PCM.PN ---
Objective - Vital Signs/Intake and Output Vital Signs (last 24 hours): Temp Pulse Resp BP Pulse Ox 97.9 F 82 18 143/86 100 11/22/18 16:22 11/22/18 16:42 11/22/18 16:22 11/22/18 16:42 11/22/18 16:22 - Medications Medications: Current Medications Amlodipine Besylate (Norvasc) 10 mg PO DAILY [facility] Last Admin: 11/22/18 12:52 Dose: 10 mg Bumetanide (Bumex) 3 mg IVP DAILY [facility] Last Admin: 11/22/18 08:48 Dose: 3 mg Calcitriol (Rocaltrol) 0.5 mcg PO DAILY [facility] Last Admin: 11/22/18 08:46 Dose: 0.5 mcg Calcium Acetate (Phoslo) 1,334 mg PO WM [facility] Last Admin: 11/22/18 12:52 Dose: 1,334 mg Carvedilol (Coreg) 6.25 mg PO Q12 [facility] Last Admin: 11/22/18 08:45 Dose: Not Given Clonidine HCl (Catapres) 0.1 mg PO BID [facility] Last Admin: 11/22/18 16:42 Dose: 0.1 mg Epoetin Destin (Procrit) 10,000 unit IV MWF [facility] Last Admin: 11/22/18 08:50 Dose: 10,000 unit Ergocalciferol (Drisdol 50,000 Intl Units Cap) 1 cap PO Q7D [facility] Last Admin: 11/19/18 23:09 Dose: 1 cap Heparin Sodium (Porcine) (Heparin) 5,000 units SC Q12 [facility]; Protocol Last Admin: 11/22/18 08:45 Dose: 5,000 units Hydralazine HCl (Apresoline) 10 mg IV Q6 PRN PRN Reason: Systolic Blood Pressure Last Admin: 11/13/18 17:31 Dose: 10 mg Hydralazine HCl (Apresoline) 25 mg PO Q8H [facility] Last Admin: 11/22/18 13:13 Dose: 25 mg Iron Sucrose 100 mg/ Sodium (Chloride) 105 mls @ 105 mls/hr IVPB DAILY [facility] Stop: 11/25/18 09:59 Last Admin: 11/22/18 08:46 Dose: 105 mls/hr Vitamin B Complex/Vit C/Folic Acid (Nephro-Yuridia) 1 tab PO DAILY [facility] Last Admin: 11/22/18 08:47 Dose: 1 tab - Labs Labs: 11/22/18 06:10 11/22/18 06:10 PT 12.2 Seconds (9.8-13.1) 11/14/18 08:55 INR 1.1 11/14/18 08:55 APTT 45.5 Seconds (25.6-37.1) H 11/14/18 08:55 Assessment and Plan (1) ESRD (end stage renal disease) Status: Acute (2) Anemia of renal disease Status: Acute (3) Chronic kidney disease-mineral and bone disorder Status: Acute (4) CHF (congestive heart failure) Status: Resolved (5) Hypertensive CKD, ESRD on dialysis Status: Acute (6) Hypertensive emergency Status: Resolved
[2018-11-23 06:08] LABS: EOS # 0.2 K/uL (0.0-0.7); EOS % 3.1 % (0.0-4.0); HEMOGLOBIN 9.1 g/dL (12.0-18.0); LYMPH # 1.1 K/uL (1.0-4.3); LYMPH % 23.3 % (20.0-40.0); MEAN CELL VOLUME 92.6 fl (80.0-94.0); MEAN CORPUSCULAR HEMOGLOBIN 30.9 pg (27.0-31.0); MEAN CORPUSCULAR HGB CONC 33.3 g/dL (33.0-37.0); MEAN PLATELET VOLUME 8.1 fl (7.2-11.7); MONO # 0.8 K/uL (0.0-0.8); MONO % 16.6 % (0.0-10.0); NEUT # 2.7 K/uL (1.8-7.0); RBC 2.94 Mil/uL (4.40-5.90); RED CELL DISTRIBUTION WIDTH 15.3 % (11.5-14.5); WHITE BLOOD COUNT 4.9 K/uL (4.8-10.8)
[2018-11-23 06:38] LABS: CALCIUM 8.3 mg/dL (8.4-10.2)
[2018-11-23] MEDS: Multivitamin Vitamin B Complex (Nephro-Vite) Tab PO SCH (09:30)
--- NOTE | 2018-11-23 11:51 | CP.PCM.PN ---
<Josefa Stephens - Last Filed: 11/23/18 12:15> Subjective - Date & Time of Evaluation Date of Evaluation: 11/23/18 Time of Evaluation: 08:00 - Subjective Subjective: Pt seen and examined and examined this am. No complaints. Objective - Vital Signs/Intake and Output Vital Signs (last 24 hours): Temp Pulse Resp BP Pulse Ox 98.2 F 71 18 156/90 H 100 11/23/18 07:42 11/23/18 09:33 11/23/18 07:42 11/23/18 09:33 11/23/18 07:42 - Medications Medications: Current Medications Amlodipine Besylate (Norvasc) 10 mg PO DAILY [facility] Last Admin: 11/23/18 09:33 Dose: 10 mg Bumetanide (Bumex) 3 mg IVP DAILY [facility] Last Admin: 11/23/18 09:34 Dose: 3 mg Calcitriol (Rocaltrol) 0.5 mcg PO DAILY [facility] Last Admin: 11/23/18 09:33 Dose: 0.5 mcg Calcium Acetate (Phoslo) 1,334 mg PO WM [facility] Last Admin: 11/23/18 09:33 Dose: 1,334 mg Carvedilol (Coreg) 6.25 mg PO Q12 [facility] Last Admin: 11/23/18 09:31 Dose: 6.25 mg Clonidine HCl (Catapres) 0.1 mg PO BID [facility] Last Admin: 11/23/18 09:30 Dose: 0.1 mg Epoetin Destin (Procrit) 10,000 unit IV MWF [facility] Last Admin: 11/22/18 08:50 Dose: 10,000 unit Ergocalciferol (Drisdol 50,000 Intl Units Cap) 1 cap PO Q7D [facility] Last Admin: 11/19/18 23:09 Dose: 1 cap Heparin Sodium (Porcine) (Heparin) 5,000 units SC Q12 [facility]; Protocol Last Admin: 11/23/18 09:31 Dose: 5,000 units Hydralazine HCl (Apresoline) 10 mg IV Q6 PRN PRN Reason: Systolic Blood Pressure Last Admin: 11/13/18 17:31 Dose: 10 mg Hydralazine HCl (Apresoline) 25 mg PO Q8H [facility] Last Admin: 11/23/18 05:08 Dose: 25 mg Iron Sucrose 100 mg/ Sodium (Chloride) 105 mls @ 105 mls/hr IVPB DAILY [facility] Stop: 11/25/18 09:59 Last Admin: 11/23/18 09:34 Dose: 105 mls/hr Vitamin B Complex/Vit C/Folic Acid (Nephro-Yuridia) 1 tab PO DAILY [facility] Last Admin: 11/23/18 09:30 Dose: 1 tab - Labs Labs: 11/23/18 05:35 11/23/18 05:35 PT 12.2 Seconds (9.8-13.1) 11/14/18 08:55 INR 1.1 11/14/18 08:55 APTT 45.5 Seconds (25.6-37.1) H 11/14/18 08:55 - Constitutional Appears: No Acute Distress - Head Exam Head Exam: NORMAL INSPECTION - Eye Exam Eye Exam: Normal appearance - ENT Exam ENT Exam: Mucous Membranes Moist - Respiratory Exam Respiratory Exam: Clear to Ausculation Bilateral - Cardiovascular Exam Cardiovascular Exam: REGULAR RHYTHM - Extremities Exam Extremities Exam: Normal Inspection - Neurological Exam Neurological Exam: Alert - Psychiatric Exam Psychiatric exam: Normal Affect - Skin Skin Exam: Normal Color Assessment and Plan - Assessment and Plan (Free Text) Assessment: 32 yo M with hx hypertension, prior dx ESRD (with refusal of kidney biopsy and permanent dialysis access placement) in September of 2018, re-aadmitted for hypertensive emergency and Acute Renal Failure requiring hemodialysis. BP now s tabilized with labetalol, hydralazine and nicardipine drip. Right IJ shiley placed on admission and receiving HD MWF. Currently stable and awaiting HD placement. Vein mapping completed-pending report. Plan: ESRD requiring hemodialyis - Nephrology: Dr. Yang: HD will keep on MWF schedule. Pt started on Bumex 3mg IVP daily - Has permanent HD cath - Right IJ via chest - Vein mapping ordered - Needs placement for outpatient HD upon discharge - Renal diet - HD MWF Hypertensive emergency - Cardiology consulted, Dr. Hamlin, input and recs appreciated - Continue with Carvedilol 6.25 mg BID; hydralazine 25 mg Q8h, clonidine 0.1 mg BID - Monitor for worsening of symptoms/end organ damage, vitals Anemia - Normocytic; likely 2/2 ESRD - EPO MWF as ordered by nephro - Venofer daily x 10 days, started on 11/16 by nephrology - Monitor CBC, today H/H: 8.8/26.7 Mineral and Bone disorder in setting of ESRD - As per nephrology - continue calcitriol 0.5 mcg daily; continue phoslo 2 tabs w/ meals - Monitor phos periodically (goal <5.5); last on 11/20: 5.4 Pericardial Effusion -Moderate, asymptomatic -Noted on Echo -Will need echo 4 weeks after admission as per Cardio Transaminitis - AST, ALT normalized DVT prophylaxis - Heparin Q12 - Encourage OOBTC <Eden Mai - Last Filed: 11/23/18 15:57> Objective - Vital Signs/Intake and Output Vital Signs (last 24 hours): Temp Pulse Resp BP Pulse Ox 98.2 F 75 18 155/90 H 100 11/23/18 07:42 11/23/18 14:36 11/23/18 07:42 11/23/18 14:36 11/23/18 07:42 - Medications Medications: Current Medications Amlodipine Besylate (Norvasc) 10 mg PO DAILY [facility] Last Admin: 11/23/18 09:33 Dose: 10 mg Bumetanide (Bumex) 3 mg IVP DAILY [facility] Last Admin: 11/23/18 09:34 Dose: 3 mg Calcitriol (Rocaltrol) 0.5 mcg PO DAILY [facility] Last Admin: 11/23/18 09:33 Dose: 0.5 mcg Calcium Acetate (Phoslo) 1,334 mg PO WM [facility] Last Admin: 11/23/18 14:35 Dose: 1,334 mg Carvedilol (Coreg) 6.25 mg PO Q12 [facility] Last Admin: 11/23/18 09:31 Dose: 6.25 mg Clonidine HCl (Catapres) 0.1 mg PO BID [facility] Last Admin: 11/23/18 09:30 Dose: 0.1 mg Epoetin Destin (Procrit) 10,000 unit IV MWF [facility] Last Admin: 11/22/18 08:50 Dose: 10,000 unit Ergocalciferol (Drisdol 50,000 Intl Units Cap) 1 cap PO Q7D [facility] Last Admin: 11/19/18 23:09 Dose: 1 cap Heparin Sodium (Porcine) (Heparin) 5,000 units SC Q12 [facility]; Protocol Last Admin: 11/23/18 09:31 Dose: 5,000 units Hydralazine HCl (Apresoline) 10 mg IV Q6 PRN PRN Reason: Systolic Blood Pressure Last Admin: 11/13/18 17:31 Dose: 10 mg Hydralazine HCl (Apresoline) 25 mg PO Q8H [facility] Last Admin: 11/23/18 14:36 Dose: 25 mg Iron Sucrose 100 mg/ Sodium (Chloride) 105 mls @ 105 mls/hr IVPB DAILY [facility] Stop: 11/25/18 09:59 Last Admin: 11/23/18 09:34 Dose: 105 mls/hr Vitamin B Complex/Vit C/Folic Acid (Nephro-Yuridia) 1 tab PO DAILY [facility] Last Admin: 11/23/18 09:30 Dose: 1 tab - Labs Labs: 11/23/18 05:35 11/23/18 05:35 PT 12.2 Seconds (9.8-13.1) 11/14/18 08:55 INR 1.1 11/14/18 08:55 APTT 45.5 Seconds (25.6-37.1) H 11/14/18 08:55 Attending/Attestation - Attestation I have personally seen and examined this patient.: Yes I have fully participated in the care of the patient.: Yes I have reviewed all pertinent clinical information, including history, physical exam and plan: Yes
--- NOTE | 2018-11-23 20:09 | CP.PCM.PN ---
Subjective - Date & Time of Evaluation Date of Evaluation: 11/23/18 Time of Evaluation: 13:00 - Subjective Subjective: Patient reports feeling well; no sob; tolerating diet; Objective - Vital Signs/Intake and Output Vital Signs (last 24 hours): Temp Pulse Resp BP Pulse Ox 97.4 F L 70 18 130/77 100 11/23/18 16:34 11/23/18 16:59 11/23/18 16:34 11/23/18 16:59 11/23/18 16:34 - Medications Medications: Current Medications Amlodipine Besylate (Norvasc) 10 mg PO DAILY [facility] Last Admin: 11/23/18 09:33 Dose: 10 mg Bumetanide (Bumex) 3 mg IVP DAILY [facility] Last Admin: 11/23/18 09:34 Dose: 3 mg Calcitriol (Rocaltrol) 0.5 mcg PO DAILY [facility] Last Admin: 11/23/18 09:33 Dose: 0.5 mcg Calcium Acetate (Phoslo) 1,334 mg PO WM [facility] Last Admin: 11/23/18 17:44 Dose: 1,334 mg Carvedilol (Coreg) 6.25 mg PO Q12 [facility] Last Admin: 11/23/18 09:31 Dose: 6.25 mg Clonidine HCl (Catapres) 0.1 mg PO BID [facility] Last Admin: 11/23/18 16:59 Dose: 0.1 mg Epoetin Destin (Procrit) 10,000 unit IV MWF [facility] Last Admin: 11/22/18 08:50 Dose: 10,000 unit Ergocalciferol (Drisdol 50,000 Intl Units Cap) 1 cap PO Q7D [facility] Last Admin: 11/19/18 23:09 Dose: 1 cap Heparin Sodium (Porcine) (Heparin) 5,000 units SC Q12 [facility]; Protocol Last Admin: 11/23/18 09:31 Dose: 5,000 units Hydralazine HCl (Apresoline) 10 mg IV Q6 PRN PRN Reason: Systolic Blood Pressure Last Admin: 11/13/18 17:31 Dose: 10 mg Hydralazine HCl (Apresoline) 25 mg PO Q8H [facility] Last Admin: 11/23/18 14:36 Dose: 25 mg Iron Sucrose 100 mg/ Sodium (Chloride) 105 mls @ 105 mls/hr IVPB DAILY [facility] Stop: 11/25/18 09:59 Last Admin: 11/23/18 09:34 Dose: 105 mls/hr Vitamin B Complex/Vit C/Folic Acid (Nephro-Yuridia) 1 tab PO DAILY [facility] Last Admin: 11/23/18 09:30 Dose: 1 tab - Labs Labs: 11/23/18 05:35 11/23/18 05:35 PT 12.2 Seconds (9.8-13.1) 11/14/18 08:55 INR 1.1 11/14/18 08:55 APTT 45.5 Seconds (25.6-37.1) H 11/14/18 08:55 - Constitutional Appears: Non-toxic, No Acute Distress - Eye Exam Eye Exam: Normal appearance - Respiratory Exam Respiratory Exam: Clear to Ausculation Bilateral. absent: Respiratory Distress - Cardiovascular Exam Cardiovascular Exam: RRR, +S1, +S2 - GI/Abdominal Exam GI & Abdominal Exam: Soft. absent: Distended, Tenderness - Extremities Exam Additional comments: minimal lower leg edema; - Neurological Exam Neurological Exam: Alert, Awake - Psychiatric Exam Psychiatric exam: Normal Mood. absent: Agitated - Skin Skin Exam: Warm. absent: Cyanosis Assessment and Plan (1) ESRD (end stage renal disease) Assessment & Plan: Stable volume and electrolyte status; on MWF HD schedule, next for Tuesday per routine; awaiting outpatient HD spot; Status: Acute (2) Anemia of renal disease Assessment & Plan: Hgb stable, still not at goal; continue EPO on HD; continue IV iron loading; Status: Acute (3) Chronic kidney disease-mineral and bone disorder Assessment & Plan: PTH improved; continue calcitriol 0.5 mcg daily; phos controlled, continue phoslo 2 tabs w/ meals; Status: Acute (4) CHF (congestive heart failure) Status: Resolved (5) Hypertensive CKD, ESRD on dialysis Assessment & Plan: BP relatively controlled; continue current meds; Status: Acute (6) Hypertensive emergency Status: Resolved
[2018-11-24 01:28] VITALS: O2SAT 99
[2018-11-24 08:08] VITALS: RESP 18; TEMP 98.1
--- NOTE | 2018-11-24 10:54 | CP.PCM.PN ---
<Josefa Stephens - Last Filed: 11/24/18 11:17> Subjective - Date & Time of Evaluation Date of Evaluation: 11/24/18 Time of Evaluation: 08:00 - Subjective Subjective: Pt see and examined this morning, receiving hemodialysis at the bedside. Denies sob, chest pain. Eating well, ambulating. States he is eager to leave as his grandmother is sick. Explained to him that he needs dialysis placement prior so that he can continue treatments outpatient. He verbalized understanding. Objective - Vital Signs/Intake and Output Vital Signs (last 24 hours): Temp Pulse Resp BP Pulse Ox 98.1 F 57 L 18 143/85 99 11/24/18 08:07 11/24/18 08:07 11/24/18 08:07 11/24/18 08:07 11/24/18 08:07 - Medications Medications: Current Medications Amlodipine Besylate (Norvasc) 10 mg PO DAILY [facility] Last Admin: 11/23/18 09:33 Dose: 10 mg Bumetanide (Bumex) 3 mg IVP DAILY [facility] Last Admin: 11/23/18 09:34 Dose: 3 mg Calcitriol (Rocaltrol) 0.5 mcg PO DAILY [facility] Last Admin: 11/23/18 09:33 Dose: 0.5 mcg Calcium Acetate (Phoslo) 1,334 mg PO WM [facility] Last Admin: 11/23/18 17:44 Dose: 1,334 mg Carvedilol (Coreg) 6.25 mg PO Q12 [facility] Last Admin: 11/23/18 20:21 Dose: 6.25 mg Clonidine HCl (Catapres) 0.1 mg PO BID [facility] Last Admin: 11/23/18 16:59 Dose: 0.1 mg Epoetin Destin (Procrit) 10,000 unit IV MWF [facility] Last Admin: 11/22/18 08:50 Dose: 10,000 unit Ergocalciferol (Drisdol 50,000 Intl Units Cap) 1 cap PO Q7D [facility] Last Admin: 11/19/18 23:09 Dose: 1 cap Heparin Sodium (Porcine) (Heparin) 5,000 units SC Q12 [facility]; Protocol Last Admin: 11/23/18 20:21 Dose: 5,000 units Hydralazine HCl (Apresoline) 10 mg IV Q6 PRN PRN Reason: Systolic Blood Pressure Last Admin: 11/13/18 17:31 Dose: 10 mg Hydralazine HCl (Apresoline) 25 mg PO Q8H [facility] Last Admin: 11/24/18 05:02 Dose: 25 mg Iron Sucrose 100 mg/ Sodium (Chloride) 105 mls @ 105 mls/hr IVPB DAILY [facility] Stop: 11/25/18 09:59 Last Admin: 11/23/18 09:34 Dose: 105 mls/hr Vitamin B Complex/Vit C/Folic Acid (Nephro-Yuridia) 1 tab PO DAILY [facility] Last Admin: 11/23/18 09:30 Dose: 1 tab - Labs Labs: 11/23/18 05:35 11/23/18 05:35 PT 12.2 Seconds (9.8-13.1) 11/14/18 08:55 INR 1.1 11/14/18 08:55 APTT 45.5 Seconds (25.6-37.1) H 11/14/18 08:55 - Constitutional Appears: No Acute Distress - Head Exam Head Exam: NORMAL INSPECTION - Eye Exam Eye Exam: Normal appearance - ENT Exam ENT Exam: Mucous Membranes Moist - Neck Exam Additional comments: Right IJ tunneled cathether, normal exam - Respiratory Exam Respiratory Exam: Clear to Ausculation Bilateral. absent: Rales, Wheezes - Cardiovascular Exam Cardiovascular Exam: REGULAR RHYTHM, +S1, +S2 - GI/Abdominal Exam GI & Abdominal Exam: Soft, Normal Bowel Sounds - Extremities Exam Extremities Exam: absent: Pedal Edema - Neurological Exam Neurological Exam: Alert - Psychiatric Exam Psychiatric exam: Normal Affect - Skin Skin Exam: Normal Color Assessment and Plan - Assessment and Plan (Free Text) Assessment: 32 yo M with hx hypertension, prior dx ESRD (with refusal of kidney biopsy and permanent dialysis access placement) in September of 2018, re-aadmitted for hypertensive emergency and Acute Renal Failure requiring hemodialysis. BP now stabilized with labetalol, hydralazine and nicardipine drip. Right IJ shiley placed on admission and receiving HD MWF. Currently stable and awaiting HD placement. Vein mapping completed-pending report. Plan: ESRD requiring hemodialyis - Nephrology: Dr. Yang: HD will keep on MWF schedule. - Has permanent HD cath - Right IJ via chest - Vein mapping ordered - Needs placement for outpatient HD upon discharge - Renal diet - HD MWF Hypertensive emergency - Cardiology consulted, Dr. Hamlin, input and recs appreciated - Continue with Carvedilol 6.25 mg BID; hydralazine 25 mg Q8h, clonidine 0.1 mg BID - Monitor for worsening of symptoms/end organ damage, vitals Anemia - Normocytic; likely 2/2 ESRD - EPO MWF as ordered by nephro - Venofer daily x 10 days, started on 11/16 by nephrology - Monitor CBC, today H/H: 8.8/26.7 Mineral and Bone disorder in setting of ESRD - As per nephrology - continue calcitriol 0.5 mcg daily; continue phoslo 2 tabs w/ meals - Monitor phos periodically (goal <5.5); last on 11/20: 5.4 Pericardial Effusion -Moderate, asymptomatic -Noted on Echo -Will need echo 4 weeks after admission as per Cardio Transaminitis - AST, ALT normalized DVT prophylaxis - Heparin Q12 - Encourage OOBTC <Eden Mai - Last Filed: 11/24/18 16:15> Objective - Vital Signs/Intake and Output Vital Signs (last 24 hours): Temp Pulse Resp BP Pulse Ox 98.1 F 65 18 170/78 H 99 11/24/18 08:07 11/24/18 13:16 11/24/18 08:07 11/24/18 13:16 11/24/18 08:07 - Medications Medications: Current Medications Amlodipine Besylate (Norvasc) 10 mg PO DAILY [facility] Last Admin: 11/24/18 13:16 Dose: 10 mg Bumetanide (Bumex) 3 mg IVP DAILY [facility] Last Admin: 11/24/18 11:19 Dose: 3 mg Calcitriol (Rocaltrol) 0.5 mcg PO DAILY [facility] Last Admin: 11/24/18 11:20 Dose: 0.5 mcg Calcium Acetate (Phoslo) 1,334 mg PO WM [facility] Last Admin: 11/24/18 13:16 Dose: Not Given Carvedilol (Coreg) 6.25 mg PO Q12 [facility] Last Admin: 11/24/18 11:20 Dose: Not Given Clonidine HCl (Catapres) 0.1 mg PO BID [facility] Last Admin: 11/24/18 11:19 Dose: Not Given Epoetin Destin (Procrit) 10,000 unit IV MWF [facility] Last Admin: 11/24/18 11:28 Dose: 10,000 unit Ergocalciferol (Drisdol 50,000 Intl Units Cap) 1 cap PO Q7D [facility] Last Admin: 11/19/18 23:09 Dose: 1 cap Heparin Sodium (Porcine) (Heparin) 5,000 units SC Q12 [facility]; Protocol Last Admin: 11/24/18 11:20 Dose: 5,000 units Hydralazine HCl (Apresoline) 10 mg IV Q6 PRN PRN Reason: Systolic Blood Pressure Last Admin: 11/13/18 17:31 Dose: 10 mg Hydralazine HCl (Apresoline) 25 mg PO Q8H [facility] Last Admin: 11/24/18 13:15 Dose: 25 mg Iron Sucrose 100 mg/ Sodium (Chloride) 105 mls @ 105 mls/hr IVPB DAILY [facility] Stop: 11/25/18 09:59 Last Admin: 11/24/18 11:19 Dose: 105 mls/hr Vitamin B Complex/Vit C/Folic Acid (Nephro-Yuridia) 1 tab PO DAILY [facility] Last Admin: 11/24/18 11:21 Dose: 1 tab - Labs Labs: 11/23/18 05:35 11/23/18 05:35 PT 12.2 Seconds (9.8-13.1) 11/14/18 08:55 INR 1.1 11/14/18 08:55 APTT 45.5 Seconds (25.6-37.1) H 11/14/18 08:55 Attending/Attestation - Attestation I have personally seen and examined this patient.: Yes I have fully participated in the care of the patient.: Yes I have reviewed all pertinent clinical information, including history, physical exam and plan: Yes
[2018-11-24] MEDS: Multivitamin Vitamin B Complex (Nephro-Vite) Tab PO SCH (11:21)
[2018-11-24] MEDS: EPOETIN ALFA 10,000 UNIT/ML ML IV SCH (11:28)
[2018-11-24 13:17] VITALS: BP 170/78; PULSE 65
--- NOTE | 2018-11-24 15:54 | US ---
Date of service: 11/22/2018 PROCEDURE: Upper Extremity Venous Duplex Exam HISTORY: ESRD PRIORS: None. TECHNIQUE: Bilateral upper extremity, internal jugular, subclavian, axillary, brachial, ulnar, radial, basilic and upper cephalic veins were evaluated. Flow was assessed with color Doppler, compressibility, assessment of phasic flow and augmentation response. Report prepared by angio technologist. FINDINGS: RIGHT: 1. Internal Jugular Vein: Compressibility - Fully compressible: Thrombus - None : Flow - Phasic 2. Subclavian Vein:Compressibility - Fully compressible: Thrombus - None : Flow - Phasic 3. Axillary Vein: Compressibility - Fully compressible: Thrombus - None 4. Brachial Vein: Compressibility - Fully compressible: Thrombus - None 5. Ulnar Vein:Compressibility - Fully compressible: Thrombus - None 6. Radial Vein:Compressibility - Fully compressible: Thrombus - None 7. Cephalic Vein: Compressibility - Fully compressible: thrombus - None 7.1. Proximal Diameter: 0.3cm. Mid Diameter:0.3cm. Distal Diameter: 0.4cm 8. Basilic Vein:Compressibility - Fully compressible: thrombus - None 8.1. Proximal Diameter: Not visible. Mid Diameter:0.4cm. Distal Diameter: 0.4cm. LEFT: 1. Internal Jugular Vein: Compressibility - Fully compressible: Thrombus - None : Flow - Phasic 2. Subclavian Vein:Compressibility - Fully compressible: Thrombus - None : Flow - Phasic 3. Axillary Vein: Compressibility - Fully compressible: Thrombus - None 4. Brachial Vein: Compressibility - Fully compressible: Thrombus - None 5. Ulnar Vein:Compressibility - Fully compressible: Thrombus - None 6. Radial Vein:Compressibility - Fully compressible: Thrombus - None 7. Cephalic Vein: Compressibility - Fully compressible: thrombus - None 7.1. Proximal Diameter: 0.3cm. Mid Diameter:0.2cm. Distal Diameter: 0.3cm 8. Basilic Vein:Compressibility - Fully compressible: thrombus - None 8.1. Proximal not visible. Mid Diameter:0.4cm. Distal Diameter: 0.4cm. OTHER FINDINGS: Right: None. Left: None. IMPRESSION: Right: Diameter measurements of the right cephalic vein is measured between 0.3 cm and 0.4 cm and basilic vein is measured between 0.4 cm and 0.4 cm. Left: Diameter measurements of the left cephalic vein is measured between 0.2 cm and 0.3 cm and basilic vein is measured between 0.4cm and 0.4cm.
--- NOTE | 2018-11-24 16:15 | CP.PCM.PCO ---
Against Medical Advice - AMA Patient Left Against Medical Advice: The patient declines to stay in hospital for treatment. This action is against my medical advice. This decision was made with informed refusal. The patient was told that admission to the hospital is necessary. Explanation of the reasons wh y were discussed including stabilizing kidney function and blood pressure. The risks of leaving were explained to the patient and include, but are not limited to, worsening of known or currently unknown conditions, permanent disability and from undiagnosed or untreated conditions. The patient has the capacity to make this informed decision and understands my explanation of the current medica l problem and risks of leaving. The patient voluntarily accepts these risks and signed an AMA form documenting our conversation. The patient was given the opportunity to ask questions and reconsider. The patient was encouraged to return to the Emergency Department at any time for further care. Pt advised to keep R. tunneled catheter in place, avoiding wetting, to prevent infection, and keep area clean. Also advised to return to ED if he develops dyspnea, chest pain, weakness/lightheadedness, or fever/chills. All communication was conducted with Mechanical Applications Engineer (Andrew): [id number] Discussed with Dr. Sergei Stephens, PGY2
--- NOTE | 2018-11-24 16:44 | CP.PCM.DIS ---
<Josefa Stephens - Last Filed: 11/24/18 16:41> Provider - Provider Date of Admission: 11/12/18 20:00 Attending physician: Barby Hernández DO Consults: 11/12/18 19:46 Nephrology Consult Stat Comment: Consulting Provider: Janak Yang Consulting Physician: Janak Yang Reason for Consult: acute renal failure 11/12/18 19:47 Cardiology Consult Stat Comment: Consulting Provider: Jeovany Hamlin Consulting Physician: Jeovany Hamlin Reason for Consult: elev probnp, acute renal fialure 11/12/18 19:49 Surgery [General Surgery Consult] Stat Comment: Consulting Provider: Narcisa Lugo Consulting Physician: Narcisa Lugo Reason for Consult: shiley for emergency dialysis 11/13/18 08:00 Social Work Referral Routine Comment: Pt states he lives in a [place] [facility] [place] Physician Instructions: Reason For Exam: Pt to receive dialysis in the a.m. 11/14/18 08:31 Nursing Referral for Wound Care Routine Comment: Physician Instructions: Reason For Exam: protocol Time Spent in preparation of Discharge (in minutes): 35 Diagnosis - Discharge Diagnosis (1) ESRD (end stage renal disease) Status: Chronic Priority: High Comment: Nephrology: Dr. Yang: HD will keep on MWF schedule. - Has permanent HD cath - Right IJ via chest. Advised to keep in place on discharge. Given precautions and instructions on keeping area clean and avoiding infection. - Vein mapping completed prior to discharge. - Continue calcitriol 0.5 mcg daily; continue phoslo 2 tabs w/ meals. - SW working on placement for discharge. - Advised to follow Renal diet. - HD MWF. 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 - EPO MWF as ordered by nephro. - Venofer daily x 10 days, started on 11/16 by nephrology. Recieved 07/17 days. Needs 1 more day. (3) Pericardial effusion without cardiac tamponade Status: Acute Comment: -Moderate, asymptomatic. -Noted on Echo. -Will need echo [address] admission as per Cardio (4) Hypertensive CKD, ESRD on dialysis Status: Chronic Comment: - Cardiology consulted, Dr. Hannallah, input and recs appreciated. - Continue with Carvedilol 6.25 mg BID; hydralazine 25 mg Q8h, clonidine 0.1 mg BID, and Norvasc 5mg daily Hospital Course - Lab Results Lab Results: Micro Results 11/13/18 09:21 Nose MRSA Culture (Admit) - Final MRSA NOT DETECTED Most Recent Lab Values WBC 4.9 K/uL (4.8-10.8) 11/23/18 05:35 RBC 2.94 Mil/uL (4.40-5.90) L 11/23/18 05:35 Hgb 9.1 g/dL (12.0-18.0) L 11/23/18 05:35 Hct 27.3 % (35.0-51.0) L 11/23/18 05:35 MCV 92.6 fl (80.0-94.0) 11/23/18 05:35 MCH 30.9 pg (27.0-31.0) 11/23/18 05:35 MCHC 33.3 g/dL (33.0-37.0) 11/23/18 05:35 RDW 15.3 % (11.5-14.5) H 11/23/18 05:35 Plt Count 166 K/uL (130-400) 11/23/18 05:35 MPV 8.1 fl (7.2-11.7) 11/23/18 05:35 Neut % (Auto) 56.0 % (50.0-75.0) 11/23/18 05:35 Lymph % (Auto) 23.3 % (20.0-40.0) 11/23/18 05:35 Dukes % (Auto) 16.6 % (0.0-10.0) H 11/23/18 05:35 Eos % (Auto) 3.1 % (0.0-4.0) 11/23/18 05:35 Baso % (Auto) 1.0 % (0.0-2.0) 11/23/18 05:35 Neut # (Auto) 2.7 K/uL (1.8-7.0) 11/23/18 05:35 Lymph # (Auto) 1.1 K/uL (1.0-4.3) 11/23/18 05:35 Dukes # (Auto) 0.8 K/uL (0.0-0.8) 11/23/18 05:35 Eos # (Auto) 0.2 K/uL (0.0-0.7) 11/23/18 05:35 Baso # (Auto) 0.0 K/uL (0.0-0.2) 11/23/18 05:35 Neutrophils % (Manual) 88 % (42-75) H 11/12/18 19:00 Lymphocytes % (Manual) 9 % (20-50) L 11/12/18 19:00 Monocytes % (Manual) 3 % (0-10) 11/12/18 19:00 Platelet Estimate Normal (NORMAL) 11/12/18 19:00 Poikilocytosis (manual Slight 11/12/18 19:00 Anisocytosis (manual) Slight 11/12/18 19:00 Ovalocytes Slight 11/12/18 19:00 PT 12.2 Seconds (9.8-13.1) 11/14/18 08:55 INR 1.1 11/14/18 08:55 APTT 45.5 Seconds (25.6-37.1) H 11/14/18 08:55 pCO2 22 mm/Hg (35-45) L 11/12/18 19:57 pO2 93 mm/Hg (80-100) 11/12/18 19:57 HCO3 16.4 mmol/L (21-28) L 11/12/18 19:57 ABG pH 7.36 (7.35-7.45) 11/12/18 19:57 ABG Total CO2 13.1 mmol/L (22-28) L 11/12/18 19:57 ABG O2 Saturation 100.9 % (95-98) H 11/12/18 19:57 ABG Base Excess -10.9 mmol/L (-2.0-3.0) L 11/12/18 19:57 [place] Test Yes 11/12/18 19:57 ABG Potassium 2.9 mmol/L (3.6-5.2) L 11/12/18 19:57 VBG pH 7.28 (7.32-7.43) L 11/12/18 19:50 VBG pCO2 31 mmHg (40-60) L 11/12/18 19:50 VBG HCO3 15.5 mmol/L 11/12/18 19:50 VBG Total CO2 15.6 mmol/L (22-28) L 11/12/18 19:50 VBG O2 Sat (Calc) 69.6 % (40-65) H 11/12/18 19:50 VBG Base Excess -10.9 mmol/L (0.0-2.0) L 11/12/18 19:50 VBG Potassium 3.1 mmol/L (3.6-5.2) L 11/12/18 19:50 A-a O2 Difference 29.0 mm/Hg 11/12/18 19:57 Sodium 133.0 mmol/L (132-148) 11/12/18 19:57 Chloride 106.0 mmol/L (98-107) 11/12/18 19:57 Glucose 99 mg/dL (75-110) 11/12/18 19:57 Lactate 0.5 mmol/L (0.7-2.1) L 11/12/18 19:57 FiO2 21.0 % 11/12/18 19:57 Crit Value Called To Heidi fagan rn 11/12/18 19:05 Crit Value Called By Wendy canada rt 11/12/18 19:05 Crit Value Read Back Y 11/12/18 19:05 Blood Gas Notified Time 192111/12/18 19:05 Sodium 134 mmol/l (132-148) 11/23/18 05:35 Potassium 4.3 MMOL/L (3.6-5.0) 11/23/18 05:35 Chloride 101 mmol/L (98-107) 11/23/18 05:35 Carbon Dioxide 27 mmol/L (22-30) 11/23/18 05:35 Anion Gap 10 (10-20) 11/23/18 05:35 BUN 24 mg/dl (9-20) H 11/23/18 05:35 Creatinine 6.0 mg/dl (0.8-1.5) H 11/23/18 05:35 Est GFR ( Amer) 13 11/23/18 05:35 Est GFR (Non-Af Amer) 11 11/23/18 05:35 Random Glucose 83 mg/dL (75-110) 11/23/18 05:35 Calcium 8.3 mg/dL (8.4-10.2) L 11/23/18 05:35 Phosphorus 4.3 mg/dl (2.5-4.5) 11/23/18 05:35 Magnesium 2.0 MG/DL (1.6-2.3) 11/23/18 05:35 Iron 26 ug/dL (49-181) L 11/16/18 05:35 TIBC 214 ug/dL (250-450) L 11/16/18 05:35 % Saturation 12 % (20-55) L 11/16/18 05:35 Ferritin 124.0 ng/Ml (17.9-464) 11/16/18 05:00 Total Bilirubin 0.1 mg/dl (0.2-1.3) L 11/20/18 05:40 AST 13 U/L (17-59) L D 11/20/18 05:40 ALT 30 U/L (21-72) 11/20/18 05:40 Alkaline Phosphatase 108 U/L (38-126) 11/20/18 05:40 Troponin I 0.0870 ng/mL (0.00-0.120) 11/12/18 20:00 NT-Pro-B Natriuret Pep > 02212 pg/ml (0-450) H 11/12/18 19:00 Total Protein 5.1 G/DL (6.3-8.2) L 11/20/18 05:40 Total Protein (PEP) 5.8 g/dL (6.1-8.1) L 11/13/18 04:30 Albumin 2.6 g/dL (3.5-5.0) L 11/20/18 05:40 Albumin (PEP) 3.3 g/dL (3.8-4.8) L 11/13/18 04:30 Globulin 2.5 gm/dL (2.2-3.9) 11/20/18 05:40 Albumin/Globulin Ratio 1.0 (1.0-2.1) 11/20/18 05:40 Zdzbm-7-Wpknklojx 0.4 g/dL (0.2-0.3) H 11/13/18 04:30 Naqsm-8-Bjizswmsy 0.7 g/dL (0.5-0.9) 11/13/18 04:30 Ofoa-1-Ufjegsct 0.3 g/dL (0.4-0.6) L 11/13/18 04:30 Hqiq-9-Ktjqhxhm 0.3 g/dL (0.2-0.5) 11/13/18 04:30 Gamma Globulins 0.8 g/dL (0.8-1.7) 11/13/18 04:30 Abnorm Protein Band 1 TEST NOT PERFORMED 11/13/18 04:30 Abnorm Protein Band 2 TEST NOT PERFORMED 11/13/18 04:30 Abnorm Protein Band 3 TEST NOT PERFORMED 11/13/18 04:30 PTH Intact Whole Molec 254 pg/mL (14-64) H 11/20/18 05:40 Calcium (PTH Intact) 6.0 mg/dL (8.6-10.3) L 11/13/18 09:14 PTH w/Ion &Tot Calcium 659 pg/mL (14-64) H 11/13/18 09:14 Arterial Blood Potassium 2.9 mmol/L (3.6-5.2) L 11/12/18 19:57 Venous Blood Potassium 3.1 mmol/L (3.6-5.2) L 11/12/18 19:50 Urine Color Straw (YELLOW) 11/12/18 20:00 Urine Clarity Slighty-cloudy (Clear) 11/12/18 20:00 Urine pH 7.0 (5.0-8.0) 11/12/18 20:00 Ur Specific [place] 1.008 (1.003-1.030) 11/12/18 20:00 Urine Protein >=500 mg/dL (NEGATIVE) 11/12/18 20:00 Urine Glucose (UA) 50 mg/dL (NEGATIVE) 11/12/18 20:00 Urine Ketones Negative mg/dL (NEGATIVE) 11/12/18 20:00 Urine Blood Small (NEGATIVE) 11/12/18 20:00 Urine Nitrate Negative (NEGATIVE) 11/12/18 20:00 Urine Bilirubin Negative (NEGATIVE) 11/12/18 20:00 Urine Urobilinogen 0.2-1.0 mg/dL (0.2-1.0) 11/12/18 20:00 Ur Leukocyte Esterase Neg Juanita/uL (Negative) 11/12/18 20:00 Urine RBC (Auto) 1 /hpf (0-3) 11/12/18 20:00 Urine Microscopic WBC 9 /hpf (0-5) H 11/12/18 20:00 Ur Squamous Epith Cells 1 /hpf (0-5) 11/12/18 20:00 Urine Bacteria Rare (<OCC) 11/12/18 20:00 Urine Opiates Screen Negative (NEGATIVE) 11/12/18 20:20 Urine Methadone Screen Negative (NEGATIVE) 11/12/18 20:20 Ur Barbiturates Screen Negative (NEGATIVE) 11/12/18 20:20 Ur Phencyclidine Scrn Negative (NEGATIVE) 11/12/18 20:20 Ur Amphetamines Screen Negative (NEGATIVE) 11/12/18 20:20 U Benzodiazepines Scrn Negative (NEGATIVE) 11/12/18 20:20 U Oth Cocaine Metabols Negative (NEGATIVE) 11/12/18 20:20 U Cannabinoids Screen Negative (NEGATIVE) 11/12/18 20:20 Alcohol, Quantitative < 10 mg/dl (0-10) 11/12/18 20:20 CATHIE & SPEP Interp See note 11/13/18 04:30 Serum Immunofixation Not detected (Not Detected) 11/13/18 04:30 HARRY Screen Negative (Negative) 11/13/18 04:30 Sm (Rodriguez) Antibody <1.0 AI (<1.0) 11/13/18 04:30 Anti-Rodriguez Interpret Negative (Negative) 11/13/18 04:30 Double Strand DNA Ab 1 IU/mL 11/13/18 04:30 Complement C3 80.0 mg/dL (88.0-165.0) L 11/13/18 04:30 Complement C4 35.7 mg/dL (14.0-44.0) 11/13/18 04:30 [place]/Lambda Light Chain (()) 11/13/18 04:30 Free [place] Light Chains 125.6 mg/L (3.3-19.4) H 11/13/18 04:30 Free Lambda Light Chain 118.1 mg/L (5.7-26.3) H 11/13/18 04:30 Free [place]/Lambda Ratio 1.06 (0.26-1.65) 11/13/18 04:30 Hep Bs Antigen Negative (NEGATIVE) 11/13/18 09:14 Hep Bs Antibody Negative (NEGATIVE) 11/13/18 09:51 Hep B Core IgM Ab Negative (NEGATIVE) 11/13/18 09:51 - Hospital Course Hospital Course: 32 yo M with hx hypertension, prior dx ESRD (with refusal of kidney biopsy and permanent dialysis access placement) in September of 2018, re-aadmitted for hypertensive emergency and Acute Renal Failure requiring hemodialysis. BP now stabilized with labetalol, hydralazine and norvasc. Right IJ shiley placed on 11/17/18 and was receiving HD MWF. Pt has been awaiting hemodialysis placement. Vein mapping completed-pending report. He signed out against medical advice today. Was discharge on a 30 day supply of his chronic medications. Discharge Exam - Head Exam Head Exam: NORMAL INSPECTION - Eye Exam Eye Exam: Normal appearance - ENT Exam ENT Exam: Mucous Membranes Moist - Respiratory Exam Respiratory Exam: Clear to PA & Lateral. absent: Rales, Wheezes - Cardiovascular Exam Cardiovascular Exam: REGULAR RHYTHM, +S1, +S2. absent: Systolic Murmur - GI/Abdominal Exam GI & Abdominal Exam: Normal Bowel Sounds, Soft. absent: Tenderness - Extremities Exam Extremities exam: normal inspection - Neurological Exam Neurological exam: Alert, Oriented x3 - Psychiatric Exam Psychiatric exam: Normal Affect - Skin Skin Exam: Normal Color Discharge Plan - Discharge Medications Prescriptions: amLODIPine [Norvasc] 10 mg PO DAILY #30 tab Calcitriol [Rocaltrol] 0.5 mcg PO DAILY #30 sgl Calcium Acetate [Phoslo] 1,334 mg PO WM #90 tab Carvedilol [Coreg] 6.25 mg PO Q12 #60 tab cloNIDine [Catapres] 0.1 mg PO BID #60 tab hydrALAZINE [Apresoline] 25 mg PO Q8H 30 Days #90 tab Vitamin B Complex/Vit C/Folic [Nephro-Yuridia] 1 tab PO DAILY #30 tab - Follow Up Plan Condition: SERIOUS Disposition: AGAINST MEDICAL ADVICE Instructions: Hemodialysis, Dialysis Diet Additional Instructions: HEMODIALYSIS MON-WED-FRI. RT. PERMA CATH. Referrals: [facility] [Outside] Janak Yang MD [Staff Provider] - <Eden Mai - Last Filed: 11/24/18 17:54> Provider - Provider Date of Admission: 11/12/18 20:00 Attending physician: Barby Hernández DO Consults: 11/12/18 19:46 Nephrology Consult Stat Comment: Consulting Provider: Janak Yang Consulting Physician: Janak Yang Reason for Consult: acute renal failure 11/12/18 19:47 Cardiology Consult Stat Comment: Consulting Provider: Jeovany Hamlin Consulting Physician: Jeovany Hamlin Reason for Consult: elev probnp, acute renal fialure 11/12/18 19:49 Surgery [General Surgery Consult] Stat Comment: Consulting Provider: Narcisa Lugo Consulting Physician: Narcisa Lugo Reason for Consult: shiley for emergency dialysis 11/13/18 08:00 Social Work Referral Routine Comment: Pt states he lives [place] a [place] Physician Instructions: Reason For Exam: Pt to receive dialysis in the a.m. 11/14/18 08:31 Nursing Referral for Wound Care Routine Comment: Physician Instructions: Reason For Exam: protocol Hospital Course - Lab Results Lab Results: Micro Results 11/13/18 09:21 Nose MRSA Culture (Admit) - Final MRSA NOT DETECTED Most Recent Lab Values WBC 4.9 K/uL (4.8-10.8) 11/23/18 05:35 RBC 2.94 Mil/uL (4.40-5.90) L 11/23/18 05:35 Hgb 9.1 g/dL (12.0-18.0) L 11/23/18 05:35 Hct 27.3 % (35.0-51.0) L 11/23/18 05:35 MCV 92.6 fl (80.0-94.0) 11/23/18 05:35 MCH 30.9 pg (27.0-31.0) 11/23/18 05:35 MCHC 33.3 g/dL (33.0-37.0) 11/23/18 05:35 RDW 15.3 % (11.5-14.5) H 11/23/18 05:35 Plt Count 166 K/uL (130-400) 11/23/18 05:35 MPV 8.1 fl (7.2-11.7) 11/23/18 05:35 Neut % (Auto) 56.0 % (50.0-75.0) 11/23/18 05:35 Lymph % (Auto) 23.3 % (20.0-40.0) 11/23/18 05:35 Dukes % (Auto) 16.6 % (0.0-10.0) H 11/23/18 05:35 Eos % (Auto) 3.1 % (0.0-4.0) 11/23/18 05:35 Baso % (Auto) 1.0 % (0.0-2.0) 11/23/18 05:35 Neut # (Auto) 2.7 K/uL (1.8-7.0) 11/23/18 05:35 Lymph # (Auto) 1.1 K/uL (1.0-4.3) 11/23/18 05:35 Dukes # (Auto) 0.8 K/uL (0.0-0.8) 11/23/18 05:35 Eos # (Auto) 0.2 K/uL (0.0-0.7) 11/23/18 05:35 Baso # (Auto) 0.0 K/uL (0.0-0.2) 11/23/18 05:35 Neutrophils % (Manual) 88 % (42-75) H 11/12/18 19:00 Lymphocytes % (Manual) 9 % (20-50) L 11/12/18 19:00 Monocytes % (Manual) 3 % (0-10) 11/12/18 19:00 Platelet Estimate Normal (NORMAL) 11/12/18 19:00 Poikilocytosis (manual Slight 11/12/18 19:00 Anisocytosis (manual) Slight 11/12/18 19:00 Ovalocytes Slight 11/12/18 19:00 PT 12.2 Seconds (9.8-13.1) 11/14/18 08:55 INR 1.1 11/14/18 08:55 APTT 45.5 Seconds (25.6-37.1) H 11/14/18 08:55 pCO2 22 mm/Hg (35-45) L 11/12/18 19:57 pO2 93 mm/Hg (80-100) 11/12/18 19:57 HCO3 16.4 mmol/L (21-28) L 11/12/18 19:57 ABG pH 7.36 (7.35-7.45) 11/12/18 19:57 ABG Total CO2 13.1 mmol/L (22-28) L 11/12/18 19:57 ABG O2 Saturation 100.9 % (95-98) H 11/12/18 19:57 ABG Base Excess -10.9 mmol/L (-2.0-3.0) L 11/12/18 19:57 [place] Test Yes 11/12/18 19:57 ABG Potassium 2.9 mmol/L (3.6-5.2) L 11/12/18 19:57 VBG pH 7.28 (7.32-7.43) L 11/12/18 19:50 VBG pCO2 31 mmHg (40-60) L 11/12/18 19:50 VBG HCO3 15.5 mmol/L 11/12/18 19:50 VBG Total CO2 15.6 mmol/L (22-28) L 11/12/18 19:50 VBG O2 Sat (Calc) 69.6 % (40-65) H 11/12/18 19:50 VBG Base Excess -10.9 mmol/L (0.0-2.0) L 11/12/18 19:50 VBG Potassium 3.1 mmol/L (3.6-5.2) L 11/12/18 19:50 A-a O2 Difference 29.0 mm/Hg 11/12/18 19:57 Sodium 133.0 mmol/L (132-148) 11/12/18 19:57 Chloride 106.0 mmol/L (98-107) 11/12/18 19:57 Glucose 99 mg/dL (75-110) 11/12/18 19:57 Lactate 0.5 mmol/L (0.7-2.1) L 11/12/18 19:57 FiO2 21.0 % 11/12/18 19:57 Crit Value Called To Heidi fagan rn 11/12/18 19:05 Crit Value Called By Wendy canada rt 11/12/18 19:05 Crit Value Read Back Y 11/12/18 19:05 Blood Gas Notified Time 192111/12/18 19:05 Sodium 134 mmol/l (132-148) 11/23/18 05:35 Potassium 4.3 MMOL/L (3.6-5.0) 11/23/18 05:35 Chloride 101 mmol/L (98-107) 11/23/18 05:35 Carbon Dioxide 27 mmol/L (22-30) 11/23/18 05:35 Anion Gap 10 (10-20) 11/23/18 05:35 BUN 24 mg/dl (9-20) H 11/23/18 05:35 Creatinine 6.0 mg/dl (0.8-1.5) H 11/23/18 05:35 Est GFR ( Amer) 13 11/23/18 05:35 Est GFR (Non-Af Amer) 11 11/23/18 05:35 Random Glucose 83 mg/dL (75-110) 11/23/18 05:35 Calcium 8.3 mg/dL (8.4-10.2) L 11/23/18 05:35 Phosphorus 4.3 mg/dl (2.5-4.5) 11/23/18 05:35 Magnesium 2.0 MG/DL (1.6-2.3) 11/23/18 05:35 Iron 26 ug/dL (49-181) L 11/16/18 05:35 TIBC 214 ug/dL (250-450) L 11/16/18 05:35 % Saturation 12 % (20-55) L 11/16/18 05:35 Ferritin 124.0 ng/Ml (17.9-464) 11/16/18 05:00 Total Bilirubin 0.1 mg/dl (0.2-1.3) L 11/20/18 05:40 AST 13 U/L (17-59) L D 11/20/18 05:40 ALT 30 U/L (21-72) 11/20/18 05:40 Alkaline Phosphatase 108 U/L (38-126) 11/20/18 05:40 Troponin I 0.0870 ng/mL (0.00-0.120) 11/12/18 20:00 NT-Pro-B Natriuret Pep > 35571 pg/ml (0-450) H 11/12/18 19:00 Total Protein 5.1 G/DL (6.3-8.2) L 11/20/18 05:40 Total Protein (PEP) 5.8 g/dL (6.1-8.1) L 11/13/18 04:30 Albumin 2.6 g/dL (3.5-5.0) L 11/20/18 05:40 Albumin (PEP) 3.3 g/dL (3.8-4.8) L 11/13/18 04:30 Globulin 2.5 gm/dL (2.2-3.9) 11/20/18 05:40 Albumin/Globulin Ratio 1.0 (1.0-2.1) 11/20/18 05:40 Ovhkp-1-Tzxkzfmdl 0.4 g/dL (0.2-0.3) H 11/13/18 04:30 Dqdoe-0-Yxqnfoufe 0.7 g/dL (0.5-0.9) 11/13/18 04:30 Sqrv-3-Xelbuouc 0.3 g/dL (0.4-0.6) L 11/13/18 04:30 Twmx-8-Vontihxe 0.3 g/dL (0.2-0.5) 11/13/18 04:30 Gamma Globulins 0.8 g/dL (0.8-1.7) 11/13/18 04:30 Abnorm Protein Band 1 TEST NOT PERFORMED 11/13/18 04:30 Abnorm Protein Band 2 TEST NOT PERFORMED 11/13/18 04:30 Abnorm Protein Band 3 TEST NOT PERFORMED 11/13/18 04:30 PTH Intact Whole Molec 254 pg/mL (14-64) H 11/20/18 05:40 Calcium (PTH Intact) 6.0 mg/dL (8.6-10.3) L 11/13/18 09:14 PTH w/Ion &Tot Calcium 659 pg/mL (14-64) H 11/13/18 09:14 Arterial Blood Potassium 2.9 mmol/L (3.6-5.2) L 11/12/18 19:57 Venous Blood Potassium 3.1 mmol/L (3.6-5.2) L 11/12/18 19:50 Urine Color Straw (YELLOW) 11/12/18 20:00 Urine Clarity Slighty-cloudy (Clear) 11/12/18 20:00 Urine pH 7.0 (5.0-8.0) 11/12/18 20:00 Ur Specific [place] 1.008 (1.003-1.030) 11/12/18 20:00 Urine Protein >=500 mg/dL (NEGATIVE) 11/12/18 20:00 Urine Glucose (UA) 50 mg/dL (NEGATIVE) 11/12/18 20:00 Urine Ketones Negative mg/dL (NEGATIVE) 11/12/18 20:00 Urine Blood Small (NEGATIVE) 11/12/18 20:00 Urine Nitrate Negative (NEGATIVE) 11/12/18 20:00 Urine Bilirubin Negative (NEGATIVE) 11/12/18 20:00 Urine Urobilinogen 0.2-1.0 mg/dL (0.2-1.0) 11/12/18 20:00 Ur Leukocyte Esterase Neg Juanita/uL (Negative) 11/12/18 20:00 Urine RBC (Auto) 1 /hpf (0-3) 11/12/18 20:00 Urine Microscopic WBC 9 /hpf (0-5) H 11/12/18 20:00 Ur Squamous Epith Cells 1 /hpf (0-5) 11/12/18 20:00 Urine Bacteria Rare (<OCC) 11/12/18 20:00 Urine Opiates Screen Negative (NEGATIVE) 11/12/18 20:20 Urine Methadone Screen Negative (NEGATIVE) 11/12/18 20:20 Ur Barbiturates Screen Negative (NEGATIVE) 11/12/18 20:20 Ur Phencyclidine Scrn Negative (NEGATIVE) 11/12/18 20:20 Ur Amphetamines Screen Negative (NEGATIVE) 11/12/18 20:20 U Benzodiazepines Scrn Negative (NEGATIVE) 11/12/18 20:20 U Oth Cocaine Metabols Negative (NEGATIVE) 11/12/18 20:20 U Cannabinoids Screen Negative (NEGATIVE) 11/12/18 20:20 Alcohol, Quantitative < 10 mg/dl (0-10) 11/12/18 20:20 CATHIE & SPEP Interp See note 11/13/18 04:30 Serum Immunofixation Not detected (Not Detected) 11/13/18 04:30 HARRY Screen Negative (Negative) 11/13/18 04:30 Sm (Rodriguez) Antibody <1.0 AI (<1.0) 11/13/18 04:30 Anti-Rodriguez Interpret Negative (Negative) 11/13/18 04:30 Double Strand DNA Ab 1 IU/mL 11/13/18 04:30 Complement C3 80.0 mg/dL (88.0-165.0) L 11/13/18 04:30 Complement C4 35.7 mg/dL (14.0-44.0) 11/13/18 04:30 [place]/Lambda Light Chain (()) 11/13/18 04:30 Free [place] Light Chains 125.6 mg/L (3.3-19.4) H 11/13/18 04:30 Free Lambda Light Chain 118.1 mg/L (5.7-26.3) H 11/13/18 04:30 Free [place]/Lambda Ratio 1.06 (0.26-1.65) 11/13/18 04:30 Hep Bs Antigen Negative (NEGATIVE) 11/13/18 09:14 Hep Bs Antibody Negative (NEGATIVE) 11/13/18 09:51 Hep B Core IgM Ab Negative (NEGATIVE) 11/13/18 09:51 Attending/Attestation - Attestation I have personally seen and examined this patient.: Yes I have fully participated in the care of the patient.: Yes I have reviewed all pertinent clinical information, including history, physical exam and plan: Yes Notes (Text): Pt signed AMA despite explanation of risks. ( with the help of a water filterer- Andrew) Pt did the same when he was admitted back in September 2018. Instructed pt on care of his Permacath - risk of infection and bleeding discussed. Pt signed AMA form. Medication prescriptions provided to pt. Advised pt to go to nearest ED if he starts feeling sick again - ie:SOB, CP, N/V. Pt verbalized understanding of explanation ESRD on Hemodialysis Uncontrolled HTN Anemia of Chronic Renal Dis Pericardial Effusion likely due to ESRD
--- NOTE | 2018-11-24 19:57 | CP.PCM.PN ---
Objective - Vital Signs/Intake and Output Vital Signs (last 24 hours): Temp Pulse Resp BP Pulse Ox 98.1 F 65 18 170/78 H 99 11/24/18 08:07 11/24/18 13:16 11/24/18 08:07 11/24/18 13:16 11/24/18 08:07 - Labs Labs: 11/23/18 05:35 11/23/18 05:35 PT 12.2 Seconds (9.8-13.1) 11/14/18 08:55 INR 1.1 11/14/18 08:55 APTT 45.5 Seconds (25.6-37.1) H 11/14/18 08:55 Assessment and Plan (1) ESRD (end stage renal disease) Status: Chronic (2) Anemia of renal disease Status: Acute (3) Chronic kidney disease-mineral and bone disorder Status: Acute (4) Hypertensive CKD, ESRD on dialysis Status: Chronic
== END 2018-11-24 16:15 | disposition left against medical advice (07) | DRG 194 ==
LOC: H.ER 18:16 → H.ERHOLD 20:00 → H.ICU/CCU 11-13 01:00 → H.MEDSURG1 11-14 21:51
PROVIDERS: ADMIT Student in an Organized Health Care Education/Training Program; ATTEND Student in an Organized Health Care Education/Training Program
PROC: 05HM33Z Insertion of Infusion Device into Right Internal Jugular Vein, Percutaneous Approach (ICD-10-PCS; principal; 2018-11-12)
PROC: 5A1D70Z Performance of Urinary Filtration, Intermittent, Less than 6 Hours Per Day (ICD-10-PCS; 2018-11-13)
PROC: 05PYX3Z Removal of Infusion Device from Upper Vein, External Approach (ICD-10-PCS; 2018-11-16)
PROC: 05HM33Z Insertion of Infusion Device into Right Internal Jugular Vein, Percutaneous Approach (ICD-10-PCS; 2018-11-16)
DX: I13.2 Hypertensive heart and chronic kidney disease with heart failure and with stage 5 chronic kidney disease, or end stage renal disease (principal); G93.40 Encephalopathy, unspecified; N17.9 Acute kidney failure, unspecified; E87.2 Acidosis; N18.6 End stage renal disease; I31.3 Pericardial effusion (noninflammatory); K76.1 Chronic passive congestion of liver; N04.9 Nephrotic syndrome with unspecified morphologic changes; I16.1 Hypertensive emergency; I50.31 Acute diastolic (congestive) heart failure; D63.1 Anemia in chronic kidney disease; N25.81 Secondary hyperparathyroidism of renal origin; E83.39 Other disorders of phosphorus metabolism; E83.51 Hypocalcemia; E87.6 Hypokalemia; M89.9 Disorder of bone, unspecified; Z87.891 Personal history of nicotine dependence; Z59.0 Homelessness; R74.0 Nonspecific elevation of levels of transaminase and lactic acid dehydrogenase [LDH]; Z91.14 Patient's other noncompliance with medication regimen; R94.5 Abnormal results of liver function studies

== ENCOUNTER 2019-02-03 17:01 | Inpatient (IN) | payer OTHER ==
[2019-02-03 17:01] VITALS: BMI 26.4
--- NOTE | 2019-02-03 18:04 | ED PDOC ---
HPI: General Adult Chief Complaint (Provider): Abdominal Pain History Per: Patient History/Exam Limitations: no limitations Current Symptoms Are (Timing): Still Present Additional Complaint(s): 33 year old male with a history of renal failure and hypertension presents to the ED complaining of abdominal bloating and shortness of breath. Patient states he returned from [facility] a week ago after receiving treatment for renal failure and hypertension. He was admitted her in November and started on dialysis. Once he was discharged, he went to [facility] because his mother was sick and stayed there for 2 months and returned a week ago. Patient reports bilateral lower extremity swelling that started a few days ago that worsened today. He denies any fever, vomiting, or chest pain, but does report nausea and spitting up blood. He admits a history of daily alcohol use but denies any alcohol use recently. He denies smoking and drugs. Patient was discharged with prescriptions for blood pressure and kidney medications which he never filled. PMD: none provided <Makayla Costa - Last Filed: 02/03/19 20:53> <Eboni Yuan - Last Filed: 02/04/19 16:26> Time Seen by Provider: 02/03/19 17:38 Chief Complaint (Nursing): Abdominal Pain Past Medical History Reviewed: Historical Data, Nursing Documentation, Vital Signs Vital Signs: Last Vital Signs Temp 97.5 F L 02/03/19 17:11 Pulse 92 H 02/03/19 17:11 Resp 18 02/03/19 17:11 BP 233/136 H 02/03/19 17:11 Pulse Ox 100 02/03/19 17:11 - Medical History PMH: HTN, End Stage Renal Disease Denies: HIV, Kidney Stones, Chronic Kidney Disease - Family History Family History: States: Unknown Family Hx - Social History Current smoker - smoking cessation education provided: No Ex-Smoker (has not smoked in the last 12 months): Yes Alcohol: Other (yes in the past) Drugs: Denies <Makayla Costa - Last Filed: 02/03/19 20:53> Vital Signs: Last Vital Signs Temp 97.5 F L 02/03/19 22:33 Pulse 86 02/03/19 22:33 Resp 17 02/03/19 22:33 BP 188/99 H 02/03/19 22:33 Pulse Ox 97 02/03/19 22:33 <Eboni Yuan - Last Filed: 02/04/19 16:26> - Home Medications Home Medications: Ambulatory Orders Medication Instructions Recorded No Known Home Med 02/03/19 - Allergies Allergies/Adverse Reactions: Allergies Allergy/AdvReac Type Severity Reaction Status Date / Time No Known Allergies Allergy Verified 09/05/18 00:02 Review of Systems ROS Statement: Except As Marked, All Systems Reviewed And Found Negative Constitutional: Negative for: Fever ENT: Positive for: Other (spitting up blood) Cardiovascular: Negative for: Chest Pain Respiratory: Positive for: Shortness of Breath Gastrointestinal: Positive for: Nausea, Other (abdominal bloating). Negative for: Vomiting Musculoskeletal: Positive for: Other (bilateral lower extremity swelling) <JulissaMakayla - Last Filed: 02/03/19 20:53> Physical Exam - Reviewed Nursing Documentation Reviewed: Yes Vital Signs Reviewed: Yes - Physical Exam Appears: Positive for: No Acute Distress Head Exam: Positive for: NORMAL INSPECTION (well healed scar on head from an accident a year ago) Skin: Positive for: Jaundice Eye Exam: Positive for: Scleral icterus ENT: Positive for: Other (dry mucous membranes) Cardiovascular/Chest: Positive for: Other (right subclavian permacath placed back in November, no redness or drainage at site, clear tegaderm covering the site, he has a shunt to the left AC positive for bruit and thrill which was [place] but he does not know what for.) Gastrointestinal/Abdominal: Positive for: Bowel Sounds (normoactive ), Distended (slightly). Negative for: Tenderness Extremity: Positive for: Pedal Edema (3+), Other (warm to touch, skin intact) <CostaMakayla - Last Filed: 02/03/19 20:53> - Laboratory Results Result Diagrams: 02/03/19 18:17 02/03/19 18:17 - ECG ECG Rhythm: Positive for: Sinus Rhythm Interpretation Of ECG: viewed and signed by dr. yuan Rate: 87 O2 Sat by Pulse Oximetry: 100 (RA) Pulse Ox Interpretation: Normal - Radiology X-Ray: Viewed By Ne X-Ray Interpretation: No Acute Disease <JulissaMakayla - Last Filed: 02/03/19 20:53> - Laboratory Results Result Diagrams: 02/04/19 05:32 02/04/19 05:32 Lab Results: pCO2 20 mm/Hg (35-45) L 02/03/19 19:25 pO2 85 mm/Hg (80-100) 02/03/19 19:25 HCO3 11.4 mmol/L (21-28) L 02/03/19 19:25 ABG pH 7.23 (7.35-7.45) L 02/03/19 19:25 ABG Total CO2 9.0 mmol/L (22-28) L 02/03/19 19:25 ABG O2 Saturation 99.8 % (95-98) H 02/03/19 19:25 ABG O2 Content 11.9 ML/dL (15-23) L 02/03/19 19:25 ABG Base Excess -17.4 mmol/L (-2.0-3.0) L 02/03/19 19:25 ABG Hemoglobin 8.7 g/dL (11.7-17.4) L 02/03/19 19:25 ABG Carboxyhemoglobin 2.0 % (0.5-1.5) H 02/03/19 19:25 POC ABG HHb (Measured) 0.2 % (0.0-5.0) 02/03/19 19:25 ABG Methemoglobin 1.4 % (0.0-3.0) 02/03/19 19:25 ABG O2 Capacity 11.9 mL/dL (16-24) L 02/03/19 19:25 [place] Test Yes 02/03/19 19:25 VBG pH 7.15 (7.32-7.43) L* 02/03/19 18:19 VBG pCO2 31 mmHg (40-60) L 02/03/19 18:19 VBG HCO3 9.9 mmol/L 02/03/19 18:19 VBG Total CO2 11.8 mmol/L (22-28) L 02/03/19 18:19 VBG O2 Sat (Calc) 44.9 % (40-65) 02/03/19 18:19 VBG Base Excess -16.8 mmol/L (0.0-2.0) L 02/03/19 18:19 VBG Potassium 5.3 mmol/L (3.6-5.2) H 02/03/19 18:19 A-a O2 Difference 40.0 mm/Hg 02/03/19 19:25 Hgb O2 Saturation 96.4 % (95.0-98.0) 02/03/19 19:25 Sodium 129.0 mmol/L (132-148) L 02/03/19 18:19 Chloride 99.0 mmol/L (98-107) 02/03/19 18:19 Glucose 95 mg/dL (75-110) 02/03/19 18:19 Lactate 0.8 mmol/L (0.7-2.1) 02/03/19 18:19 FiO2 21.0 % 02/03/19 19:25 Crit Value Called To eboni Yuan md 02/03/19 18:19 Crit Value Called By Kanwal stewart 02/03/19 18:19 Crit Value Read Back Y 02/03/19 18:19 Blood Gas Notified Time 1827 02/03/19 18:19 PT 13.8 Seconds (9.8-13.1) H 02/03/19 18:17 INR 1.2 02/03/19 18:17 APTT 52.3 Seconds (25.6-37.1) H 02/03/19 18:17 Troponin I 0.0980 ng/mL (0.00-0.120) 02/03/19 18:17 NT-Pro-B Natriuret Pep > 596954 pg/ml (0-450) H 02/03/19 18:17 Total Bilirubin 0.5 mg/dl (0.2-1.3) 02/03/19 18:17 AST 56 U/L (17-59) 02/03/19 18:17 ALT 86 U/L (21-72) H D 02/03/19 18:17 Alkaline Phosphatase 167 U/L (38-126) H D 02/03/19 18:17 Total Protein 6.9 G/DL (6.3-8.2) 02/03/19 18:17 Albumin 3.9 g/dL (3.5-5.0) 02/03/19 18:17 Globulin 3.0 gm/dL (2.2-3.9) 02/03/19 18:17 Albumin/Globulin Ratio 1.3 (1.0-2.1) 02/03/19 18:17 Lipase 527 U/L (23-300) H 02/03/19 18:17 Urine Color Yellow (YELLOW) 02/03/19 21:00 Urine Clarity Slighty-cloudy (Clear) 02/03/19 21:00 Urine pH 8.0 (5.0-8.0) 02/03/19 21:00 Ur Specific [place] 1.014 (1.003-1.030) 02/03/19 21:00 Urine Protein >=500 mg/dL (NEGATIVE) 02/03/19 21:00 Urine Glucose (UA) 50 mg/dL (NEGATIVE) 02/03/19 21:00 Urine Ketones Negative mg/dL (NEGATIVE) 02/03/19 21:00 Urine Blood Moderate (NEGATIVE) 02/03/19 21:00 Urine Nitrate Negative (NEGATIVE) 02/03/19 21:00 Urine Bilirubin Negative (NEGATIVE) 02/03/19 21:00 Urine Urobilinogen 0.2-1.0 mg/dL (0.2-1.0) 02/03/19 21:00 Ur Leukocyte Esterase Trace Juanita/uL (Negative) 02/03/19 21:00 Urine RBC (Auto) 81 /hpf (0-3) H 02/03/19 21:00 Urine Microscopic WBC 49 /hpf (0-5) H 02/03/19 21:00 Ur Squamous Epith Cells 1 /hpf (0-5) 02/03/19 21:00 - Critical Care Total Time (In Min): 30 Documented Critical Care: Time excludes all time spent performint seperately billable procedures <Eboni Yuan - Last Filed: 02/04/19 16:26> Medical Decision Making Medical Decision Making: Time: 1738 Plan: --type and screen --VBG --EKG --alcohol serum --Ammonia --BNP --CMP --LDH --Lipase --Magnesium --Phosphorous --Troponin --CBC --PTT --PT/INR --CXR --Catapres --Blood culture --Urine culture --glucose --occult blood --UA --US duplex --Case discussed with Dr. Yuan. 1928: Repeat B/P: 203/149 after Catapress 0.1mg. Hydralazine 10mg IV be given 2021: Dr. Kmuar accepted Pt on Telemetry, HTN Urgency, ESRD, ANEMIA. REPEAT B/P 192/128 DR. KUMAR RECOMMENDED TO GIVE HYDRALAZINE 20MG IV NOW. DR. YUAN AWARE. PENDING CALL BACK FROM DR. OTT (NEPHROLOGY). 2052: DR. OTT CALLED ON CONSULT FOR NEPHROLOGY, PT TO BE DIALYZED TONIGHT. UPON HD NURSE ARRIVAL, NURSE CALL DR. OTT FOR ORDERS. DR. KUMAR AT BEDSIDE EXAMINING PT. NO FURTHER ED TREATMENT NEEDED AT THIS TIME. DR. YUAN AWARE OF UPDATES AND AGREES WITH PLAN. Scribe Attestation: Documented by Hope Bobo, acting as a scribe for Makayla Costa PA-C. Provider Scribe Attestation: All medical record entries made by the Scribe were at my direction and personally dictated by me. I have reviewed the chart and agree that the record accurately reflects my personal performance of the history, physical exam, medical decision making, and the department course for this patient. I have also personally directed, reviewed, and agree with the discharge instructions and disposition. <Makayla Costa - Last Filed: 02/03/19 20:53> Disposition - Patient ED Disposition Is Patient to be Admitted: Yes Counseled Patient/Family Regarding: Diagnosis - Disposition Disposition Time: 20:00 - Pt Status Changed To: Hospital Disposition Of: Inpatient - Admit Certification Admit to Inpatient:: After my assessment, the patient will require hospitalization for at least two midnights. This is because of the severity of symptoms shown, intensity of services needed, and/or the medical risk in this p atient being treated as an outpatient. - POA Present On Arrival: None <Makayla Costa - Last Filed: 02/03/19 20:53> <Eboni Yuan - Last Filed: 02/04/19 16:26> - Clinical Impression Clinical Impression: ESRD (end stage renal disease), Anemia of renal disease - Disposition Condition: GUARDED - PA / [employer] / Resident Statement MD/DO has examined the patient and agrees with the treatment plan. (leg edema and marked hypertension, untreated renal failure, clear lungs. adm for stat dialysis and bp management) <Eboni Yuan - Last Filed: 02/04/19 16:26>
[2019-02-03 18:28] LABS: VENOUS BLOOD GAS BASE EXCESS -16.8 mmol/L (0.0-2.0); VENOUS BLOOD GAS PCO2 31 mmHg (40-60); VENOUS BLOOD GAS PO2 25 mm/Hg (30-55); VENOUS BLOOD PH 7.15 (7.32-7.43)
[2019-02-03 18:31] LABS: INR 1.2; PROTHROMBIN TIME 13.8 Seconds (9.8-13.1)
[2019-02-03 18:34] LABS: PARTIAL THROMBOPLASTIN TIME 52.3 Seconds (25.6-37.1)
[2019-02-03 18:38] LABS: BASO # 0.1 K/uL (0.0-0.2); BASO % 0.9 % (0.0-2.0); EOS # 0.1 K/uL (0.0-0.7); EOS % 1.9 % (0.0-4.0); HEMOGLOBIN 8.8 g/dL (12.0-18.0); LYMPH # 0.7 K/uL (1.0-4.3); LYMPH % 8.9 % (20.0-40.0); MEAN CORPUSCULAR HGB CONC 33.2 g/dL (33.0-37.0); MEAN PLATELET VOLUME 7.9 fl (7.2-11.7); MONO # 0.6 K/uL (0.0-0.8); MONO % 8.1 % (0.0-10.0); NEUT # 6.3 K/uL (1.8-7.0); NEUT % 80.2 % (50.0-75.0); NRBC % 0.1 % (0.0-0.0); RBC 3.04 Mil/uL (4.40-5.90); RED CELL DISTRIBUTION WIDTH 14.6 % (11.5-14.5)
[2019-02-03 18:43] LABS: MEAN CELL VOLUME 87.2 fl (80.0-94.0); PLATELET COUNT 114 K/uL (130-400); WHITE BLOOD COUNT 7.9 K/uL (4.8-10.8)
[2019-02-03 18:58] LABS: ALB/GLOB RATIO 1.3 (1.0-2.1); ALBUMIN 3.9 g/dL (3.5-5.0); ALT/SGPT 86 U/L (21-72); AST/SGOT 56 U/L (17-59); BLOOD UREA NITROGEN 188 mg/dl (9-20); CALCIUM 7.4 mg/dL (8.4-10.2); LIPASE 527 U/L (23-300)
[2019-02-03 19:05] LABS: GFR NON-AFRICAN AMERICAN 3
[2019-02-03 19:16] LABS: PLATELET CLUMPS PRESENT; PLATELET ESTIMATE SLIGHTLY DECREASED (NORMAL)
[2019-02-03 19:17] LABS: BANDS 3 % (0-2); LYMPHOCYTE 10 % (20-50); MONOCYTE 10 % (0-10); NEUTROPHIL 77 % (42-75); TOTAL CELLS COUNTED 100
[2019-02-03 19:33] LABS: ABG ALLEN TEST YES; ARTERIAL BLOOD GAS HCO3 11.4 mmol/L (21-28); ARTERIAL BLOOD GAS HEMOGLOBIN 8.7 g/dL (11.7-17.4); ARTERIAL BLOOD GAS O2 CAPACITY 11.9 mL/dL (16-24); ARTERIAL BLOOD GAS O2 CONTENT 11.9 ML/dL (15-23); ARTERIAL BLOOD GAS O2 SAT 99.8 % (95-98); ARTERIAL BLOOD GAS PCO2 20 mm/Hg (35-45); ARTERIAL BLOOD GAS PH 7.23 (7.35-7.45); ARTERIAL BLOOD GAS PO2 85 mm/Hg (80-100)
[2019-02-03 19:46] LABS: B-TYPE NATRIURETIC PEPTIDE > 175000 pg/ml (0-450)
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
[2019-02-03 21:11] LABS: SQUAMOUS EPITHIAL 1 /hpf (0-5); URINE BILIRUBIN NEGATIVE (NEGATIVE); URINE BLOOD MODERATE (NEGATIVE); URINE CLARITY SLIGHTY-CLOUDY (Clear); URINE COLOR YELLOW (YELLOW); URINE GLUCOSE (UA) 50 mg/dL (NEGATIVE); URINE LEUKOCYTE ESTERASE TRACE Leu/uL (Negative); URINE PROTEIN >=500 mg/dL (NEGATIVE); URINE UROBILINOGEN 0.2-1.0 mg/dL (0.2-1.0)
[2019-02-04 06:43] LABS: HEMOGLOBIN 7.9 g/dL (12.0-18.0); MEAN CELL VOLUME 86.6 fl (80.0-94.0); MEAN CORPUSCULAR HGB CONC 33.4 g/dL (33.0-37.0); RBC 2.74 Mil/uL (4.40-5.90); RED CELL DISTRIBUTION WIDTH 14.6 % (11.5-14.5); WHITE BLOOD COUNT 6.7 K/uL (4.8-10.8)
--- NOTE | 2019-02-04 06:54 | CP.PCM.PN ---
Subjective - Date & Time of Evaluation Date of Evaluation: 02/04/19 Time of Evaluation: 07:00 - Subjective Subjective: Patient seen and examined today, currently receiving HD, Consent was signed, Currently patient have no complains. Patient slept well overnight. He denies any dizziness, headache, chest pain, sob, abd pain diarrhea or constipation. Objective - Vital Signs/Intake and Output Vital Signs (last 24 hours): Temp Pulse Resp BP Pulse Ox 97.8 F 78 18 165/72 H 99 02/04/19 05:13 02/04/19 05:13 02/04/19 05:13 02/04/19 05:13 02/04/19 05:13 - Medications Medications: Current Medications Carvedilol (Coreg) 6.25 mg PO Q12 JM Clonidine HCl (Catapres) 0.1 mg PO BID JM Hydralazine HCl (Apresoline) 25 mg PO TID JM - Labs Labs: 02/04/19 05:32 02/03/19 18:17 PT 13.8 Seconds (9.8-13.1) H 02/03/19 18:17 INR 1.2 02/03/19 18:17 APTT 52.3 Seconds (25.6-37.1) H 02/03/19 18:17 - Constitutional Appears: Well, Non-toxic, No Acute Distress - Head Exam Head Exam: ATRAUMATIC, NORMAL INSPECTION, NORMOCEPHALIC - Eye Exam Eye Exam: EOMI, Normal appearance, PERRL Pupil Exam: NORMAL ACCOMODATION, PERRL - ENT Exam ENT Exam: Mucous Membranes Moist, Normal Exam - Neck Exam Neck Exam: Full ROM, Normal Inspection - Respiratory Exam Respiratory Exam: Clear to Ausculation Bilateral, NORMAL BREATHING PATTERN - Cardiovascular Exam Cardiovascular Exam: REGULAR RHYTHM, +S1, +S2 - GI/Abdominal Exam GI & Abdominal Exam: Soft, Normal Bowel Sounds - Extremities Exam Additional comments: Fistula noted on LEFT UPPER extremities, thrill+ - Back Exam Back Exam: NORMAL INSPECTION - Neurological Exam Neurological Exam: Alert, Awake, Oriented x3 - Psychiatric Exam Psychiatric exam: Normal Affect, Normal Mood - Skin Skin Exam: Dry, Intact, Normal Color, Warm Assessment and Plan - Assessment and Plan (Free Text) Assessment: Assessment: 32-year-old male with pmhx of HTN and ESRF presents to ED with a three-day duration of abdominal and low-extremity bloating. Plan: Hypertensive urgency - current Bp 177/93 -Most likely due to Volume overload due to ESRF ( Follow up BP after HD) -BP on presentation: 233/136 -In ED: Clonidine 0.1 (x1), Hydralazine 10mg (x1), Hydralazine 20mg (x1) -Monitor for end-organ damage, vitals -Carvedilol 6.25 mg BID, hydralazine 25 mg Q8h, clonidine 0.1 mg BID - Monitor BP ESRF -Currently receiving HD -BUN/Cr 188/17.2, GFR 3 --Pro BNP > 175,000 most likely due to ESRF -Na 132, K 4.7, Mg 2.4, Ca 7.4, CO2 7 -Dr Perdomo (nephrology) consulted -HD cath - Right IJ chest, Nov 2018 [facility] -Patient will receive another HD tomorrow -Renal diet -probnb elevation -metabolic acidosis sec to renal insufficiency -Needs outpatient HD placement on discharge -F/U Hep C and B Anemia -likely secondary to ESRD -stool occult positive in ED -Hg/Hct 8.8/26.5 - 7.9/23.7 -Monitor CBC, nephrology recs and input appreciated -Need Gi colonoscopy -F/U VIt B12/folate -Iron & TIBC -FU TSH DVT Prevention SCD Diet Renal diet
--- NOTE | 2019-02-04 10:09 | CP.PCM.CON ---
History of Present Illness - History of Present Illness History of Present Illness: 33 y/o male with Hx/o ESRD, HTN presented to ER for c/o sob & not feeling well. Pt was admitted to [facility] in September 2018 & then in November 2018. After receiving HD treatments each time Pt had left the hospital AMA.Pt reports that he did not get dialysis for 2 months. In ER Pt was found to have BUN/Creat of 188/17.2. & sever metabolic acidosis. Review of Systems - Constitutional Constitutional: Fatigue, Malaise - Cardiovascular Cardiovascular: Orthopnea - Respiratory Respiratory: Dyspnea on Exertion - Gastrointestinal Gastrointestinal: Nausea Past Patient History - Infectious Disease Hx of Infectious Diseases: None - Past Medical History & Family History Past Medical History?: Yes - Past Social History Smoking Status: Former Smoker - CARDIAC Hx Hypertension: Yes - PULMONARY Hx Respiratory Disorders: No - NEUROLOGICAL Hx Neurological Disorder: No - HEENT Hx HEENT Problems: No - RENAL Hx Chronic Kidney Disease: Yes Hx Dialysis: Yes - ENDOCRINE/METABOLIC Hx Endocrine Disorders: No - HEMATOLOGICAL/ONCOLOGICAL Hx Human Immunodeficiency Virus (HIV): No - INTEGUMENTARY Hx Dermatological Problems: No - MUSCULOSKELETAL/RHEUMATOLOGICAL Hx Musculoskeletal Disorders: No Hx Falls: No - GASTROINTESTINAL Hx Gastrointestinal Disorders: No - GENITOURINARY/GYNECOLOGICAL Hx Genitourinary Disorders: No - PSYCHIATRIC Hx Psychophysiologic Disorder: No Hx Substance Use: No - SURGICAL HISTORY Hx Surgeries: Yes Other/Comment: Head surgery secondary to trauma 8 months ago - ANESTHESIA Hx Anesthesia: Yes Hx Anesthesia Reactions: No Hx Malignant Hyperthermia: No Meds Allergies/Adverse Reactions: Allergies Allergy/AdvReac Type Severity Reaction Status Date / Time No Known Allergies Allergy Verified 09/05/18 00:02 - Medications Medications: Current Medications Carvedilol (Coreg) 6.25 mg PO Q12 [facility] Last Admin: 02/04/19 09:42 Dose: 6.25 mg Clonidine HCl (Catapres) 0.1 mg PO BID [facility] Last Admin: 02/04/19 09:42 Dose: 0.1 mg Epoetin Destin (Procrit) 3,000 unit IV ONCE ONE Stop: 02/04/19 09:59 Hydralazine HCl (Apresoline) 25 mg PO TID [facility] Last Admin: 02/04/19 09:42 Dose: 25 mg Sevelamer HCl (Renagel) 1,600 mg PO TID [facility] Physical Exam - Constitutional Additional comments: Appears SOB - Head Exam Head Exam: ATRAUMATIC, NORMOCEPHALIC - Eye Exam Additional comments: Cojunctiva pale. Sclera anicteric - ENT Exam ENT Exam: Mucous Membranes Moist Additional comments: Periorbital edema - Neck Exam Additional comments: Jugular venous distension noted - Respiratory Exam Respiratory Exam: NORMAL BREATHING PATTERN Additional comments: Bibasilar crackles - Cardiovascular Exam Cardiovascular Exam: REGULAR RHYTHM Additional comments: S3 present - GI/Abdominal Exam Additional comments: Abdomen is soft. Mild diffuse tenderness - Rectal Exam Rectal Exam: Deferred - Extremities Exam Additional comments: 3+ b/l pedal edema up to the thighs Results - Vital Signs Recent Vital Signs: Last Vital Signs Temp 97.5 F L 02/04/19 07:58 Pulse 71 02/04/19 09:42 Resp 20 02/04/19 07:58 BP 177/93 H 02/04/19 09:42 Pulse Ox 97 02/04/19 07:58 - Labs Result Diagrams: 02/04/19 05:32 02/04/19 05:32 Labs: Laboratory Results - last 24 hr 02/03/19 02/03/19 02/03/19 18:00 18:15 18:17 WBC RBC Hgb Hct MCV MCH MCHC RDW Plt Count MPV Neut % (Auto) Lymph % (Auto) [place] % (Auto) Eos % (Auto) Baso % (Auto) Neut # (Auto) Lymph # (Auto) [place] # (Auto) Eos # (Auto) Baso # (Auto) Neutrophils % (Manual) Band Neutrophils % Lymphocytes % (Manual) Monocytes % (Manual) Platelet Estimate Plt Clumps, EDTA RBC Morphology PT INR APTT pCO2 pO2 HCO3 ABG pH ABG Total CO2 ABG O2 Saturation ABG O2 Content ABG Base Excess ABG Hemoglobin ABG Carboxyhemoglobin POC ABG HHb (Measured) ABG Methemoglobin ABG O2 Capacity [place] Test VBG pH VBG pCO2 VBG HCO3 VBG Total CO2 VBG O2 Sat (Calc) VBG Base Excess VBG Potassium A-a O2 Difference Hgb O2 Saturation Glucose Lactate FiO2 Crit Value Called To Crit Value Called By Crit Value Read Back Blood Gas Notified Time Sodium 131 L Potassium 5.2 H Chloride 99 Carbon Dioxide 9 L* D Anion Gap 28 H BUN 188 H* D Creatinine 17.2 H* D Est GFR ( Amer) 4 Est GFR (Non-Af Amer) 3 POC Glucose (mg/dL) 97 Random Glucose 93 Calcium 7.4 L Phosphorus 9.5 H Magnesium 2.4 H Total Bilirubin 0.5 AST 56 ALT 86 H D Alkaline Phosphatase 167 H D Ammonia Lactate Dehydrogenase 1097 H Troponin I 0.0980 NT-Pro-B Natriuret Pep > 655658 H Total Protein 6.9 Albumin 3.9 Globulin 3.0 Albumin/Globulin Ratio 1.3 Lipase 527 H Venous Blood Potassium Urine Color Urine Clarity Urine pH Ur Specific [place] Urine Protein Urine Glucose (UA) Urine Ketones Urine Blood Urine Nitrate Urine Bilirubin Urine Urobilinogen Ur Leukocyte Esterase Urine RBC (Auto) Urine Microscopic WBC Ur Squamous Epith Cells Stool Occult Blood Alcohol, Quantitative < 10 Blood Type Blood Type Confirm O POSITIVE Antibody Screen BBK History Checked 02/03/19 02/03/19 02/03/19 18:17 18:17 18:17 WBC 7.9 D RBC 3.04 L Hgb 8.8 L Hct 26.5 L MCV 87.2 D MCH 29.0 MCHC 33.2 RDW 14.6 H Plt Count 114 L D MPV 7.9 Neut % (Auto) 80.2 H Lymph % (Auto) 8.9 L [place] % (Auto) 8.1 Eos % (Auto) 1.9 Baso % (Auto) 0.9 Neut # (Auto) 6.3 Lymph # (Auto) 0.7 L [place] # (Auto) 0.6 Eos # (Auto) 0.1 Baso # (Auto) 0.1 Neutrophils % (Manual) 77 H Band Neutrophils % 3 H Lymphocytes % (Manual) 10 L Monocytes % (Manual) 10 Platelet Estimate Slightly decreased L Plt Clumps, EDTA Present RBC Morphology Normal PT 13.8 H INR 1.2 APTT 52.3 H pCO2 pO2 HCO3 ABG pH ABG Total CO2 ABG O2 Saturation ABG O2 Content ABG Base Excess ABG Hemoglobin ABG Carboxyhemoglobin POC ABG HHb (Measured) ABG Methemoglobin ABG O2 Capacity [place] Test VBG pH VBG pCO2 VBG HCO3 VBG Total CO2 VBG O2 Sat (Calc) VBG Base Excess VBG Potassium A-a O2 Difference Hgb O2 Saturation Glucose Lactate FiO2 Crit Value Called To Crit Value Called By Crit Value Read Back Blood Gas Notified Time Sodium Potassium Chloride Carbon Dioxide Anion Gap BUN Creatinine Est GFR ( Amer) Est GFR (Non-Af Amer) POC Glucose (mg/dL) Random Glucose Calcium Phosphorus Magnesium Total Bilirubin AST ALT Alkaline Phosphatase Ammonia 15 Lactate Dehydrogenase Troponin I NT-Pro-B Natriuret Pep Total Protein Albumin Globulin Albumin/Globulin Ratio Lipase Venous Blood Potassium Urine Color Urine Clarity Urine pH Ur Specific [place] Urine Protein Urine Glucose (UA) Urine Ketones Urine Blood Urine Nitrate Urine Bilirubin Urine Urobilinogen Ur Leukocyte Esterase Urine RBC (Auto) Urine Microscopic WBC Ur Squamous Epith Cells Stool Occult Blood Alcohol, Quantitative Blood Type Blood Type Confirm Antibody Screen BBK History Checked 02/03/19 02/03/19 02/03/19 18:17 18:19 19:25 WBC RBC Hgb Hct MCV MCH MCHC RDW Plt Count MPV Neut % (Auto) Lymph % (Auto) [place] % (Auto) Eos % (Auto) Baso % (Auto) Neut # (Auto) Lymph # (Auto) [place] # (Auto) Eos # (Auto) Baso # (Auto) Neutrophils % (Manual) Band Neutrophils % Lymphocytes % (Manual) Monocytes % (Manual) Platelet Estimate Plt Clumps, EDTA RBC Morphology PT INR APTT pCO2 20 L pO2 25 L 85 HCO3 11.4 L ABG pH 7.23 L ABG Total CO2 9.0 L ABG O2 Saturation 99.8 H ABG O2 Content 11.9 L ABG Base Excess -17.4 L ABG Hemoglobin 8.7 L ABG Carboxyhemoglobin 2.0 H POC ABG HHb (Measured) 0.2 ABG Methemoglobin 1.4 ABG O2 Capacity 11.9 L [place] Test Yes VBG pH 7.15 L* VBG pCO2 31 L VBG HCO3 9.9 VBG Total CO2 11.8 L VBG O2 Sat (Calc) 44.9 VBG Base Excess -16.8 L VBG Potassium 5.3 H A-a O2 Difference 40.0 Hgb O2 Saturation 96.4 Glucose 95 Lactate 0.8 FiO2 21.0 21.0 Crit Value Called To eboni Vickers md Crit Value Called By Kanwal stewart Crit Value Read Back Y Blood Gas Notified Time 1827 Sodium 129.0 L Potassium Chloride 99.0 Carbon Dioxide Anion Gap BUN Creatinine Est GFR ( Amer) Est GFR (Non-Af Amer) POC Glucose (mg/dL) Random Glucose Calcium Phosphorus Magnesium Total Bilirubin AST ALT Alkaline Phosphatase Ammonia Lactate Dehydrogenase Troponin I NT-Pro-B Natriuret Pep Total Protein Albumin Globulin Albumin/Globulin Ratio Lipase Venous Blood Potassium 5.3 H Urine Color Urine Clarity Urine pH Ur Specific [place] Urine Protein Urine Glucose (UA) Urine Ketones Urine Blood Urine Nitrate Urine Bilirubin Urine Urobilinogen Ur Leukocyte Esterase Urine RBC (Auto) Urine Microscopic WBC Ur Squamous Epith Cells Stool Occult Blood Alcohol, Quantitative Blood Type O POSITIVE Blood Type Confirm Antibody Screen Negative BBK History Checked No verified bt 02/03/19 02/03/19 02/04/19 19:35 21:00 05:32 WBC 6.7 RBC 2.74 L Hgb 7.9 L Hct 23.7 L MCV 86.6 MCH 29.0 MCHC 33.4 RDW 14.6 H Plt Count 104 L MPV Neut % (Auto) Lymph % (Auto) [place] % (Auto) Eos % (Auto) Baso % (Auto) Neut # (Auto) Lymph # (Auto) [place] # (Auto) Eos # (Auto) Baso # (Auto) Neutrophils % (Manual) Band Neutrophils % Lymphocytes % (Manual) Monocytes % (Manual) Platelet Estimate Plt Clumps, EDTA RBC Morphology PT INR APTT pCO2 pO2 HCO3 ABG pH ABG Total CO2 ABG O2 Saturation ABG O2 Content ABG Base Excess ABG Hemoglobin ABG Carboxyhemoglobin POC ABG HHb (Measured) ABG Methemoglobin ABG O2 Capacity [place] Test VBG pH VBG pCO2 VBG HCO3 VBG Total CO2 VBG O2 Sat (Calc) VBG Base Excess VBG Potassium A-a O2 Difference Hgb O2 Saturation Glucose Lactate FiO2 Crit Value Called To Crit Value Called By Crit Value Read Back Blood Gas Notified Time Sodium Potassium Chloride Carbon Dioxide Anion Gap BUN Creatinine Est GFR ( Amer) Est GFR (Non-Af Amer) POC Glucose (mg/dL) Random Glucose Calcium Phosphorus Magnesium Total Bilirubin AST ALT Alkaline Phosphatase Ammonia Lactate Dehydrogenase Troponin I NT-Pro-B Natriuret Pep Total Protein Albumin Globulin Albumin/Globulin Ratio Lipase Venous Blood Potassium Urine Color Yellow Urine Clarity Slighty-cloudy Urine pH 8.0 Ur Specific [place] 1.014 Urine Protein >=500 Urine Glucose (UA) 50 Urine Ketones Negative Urine Blood Moderate Urine Nitrate Negative Urine Bilirubin Negative Urine Urobilinogen 0.2-1.0 Ur Leukocyte Esterase Trace Urine RBC (Auto) 81 H Urine Microscopic WBC 49 H Ur Squamous Epith Cells 1 Stool Occult Blood Positive H Alcohol, Quantitative Blood Type Blood Type Confirm Antibody Screen BBK History Checked 02/04/19 05:32 WBC RBC Hgb Hct MCV MCH MCHC RDW Plt Count MPV Neut % (Auto) Lymph % (Auto) [place] % (Auto) Eos % (Auto) Baso % (Auto) Neut # (Auto) Lymph # (Auto) [place] # (Auto) Eos # (Auto) Baso # (Auto) Neutrophils % (Manual) Band Neutrophils % Lymphocytes % (Manual) Monocytes % (Manual) Platelet Estimate Plt Clumps, EDTA RBC Morphology PT INR APTT pCO2 pO2 HCO3 ABG pH ABG Total CO2 ABG O2 Saturation ABG O2 Content ABG Base Excess ABG Hemoglobin ABG Carboxyhemoglobin POC ABG HHb (Measured) ABG Methemoglobin ABG O2 Capacity [place] Test VBG pH VBG pCO2 VBG HCO3 VBG Total CO2 VBG O2 Sat (Calc) VBG Base Excess VBG Potassium A-a O2 Difference Hgb O2 Saturation Glucose Lactate FiO2 Crit Value Called To Crit Value Called By Crit Value Read Back Blood Gas Notified Time Sodium 132 Potassium 4.7 Chloride 101 Carbon Dioxide 7 L* D Anion Gap 29 H BUN 194 H* Creatinine 17.7 H* Est GFR ( Amer) 4 Est GFR (Non-Af Amer) 3 POC Glucose (mg/dL) Random Glucose 92 Calcium 7.0 L Phosphorus Magnesium Total Bilirubin AST ALT Alkaline Phosphatase Ammonia Lactate Dehydrogenase Troponin I NT-Pro-B Natriuret Pep Total Protein Albumin Globulin Albumin/Globulin Ratio Lipase Venous Blood Potassium Urine Color Urine Clarity Urine pH Ur Specific [place] Urine Protein Urine Glucose (UA) Urine Ketones Urine Blood Urine Nitrate Urine Bilirubin Urine Urobilinogen Ur Leukocyte Esterase Urine RBC (Auto) Urine Microscopic WBC Ur Squamous Epith Cells Stool Occult Blood Alcohol, Quantitative Blood Type Blood Type Confirm Antibody Screen BBK History Checked Assessment & Plan - Assessment and Plan (Free Text) Assessment: ESRD, missed dialysis treatments. Appears uremic Volume overload Uncontrolled HTN Anemia secondary to CKD Hb of 7.9 most likely dilutional Plan: Pt is receiving dialysis . UF of 2.5- 3 Kg is [lanned as tolerated. Pt will receive another dialysis tomorrow Iron profile, Epogen given Renagel Intact PTH
[2019-02-04 10:10] LABS: IRON 103 ug/dL (49-181)
[2019-02-04 10:29] LABS: % IRON SATURATION 45 % (20-55); TOTAL IRON BINDING CAPACITY 230 ug/dL (250-450)
[2019-02-04] MEDS ORDERED: EPOETIN ALFA 10,000 UNIT/ML ML IV ONE (10:30)
[2019-02-04] MEDS ORDERED: EPOETIN ALFA 2000 UNIT/ML IV ONE (11:15)
[2019-02-04] MEDS ORDERED: Epoetin Alfa 20000 UNIT/ML Inj IV ONE (12:45)
--- NOTE | 2019-02-04 13:07 | RAD ---
Date of service: 02/03/2019 HISTORY: SOB COMPARISON: Comparison chest 11/12/2018 TECHNIQUE: 1 view obtained. FINDINGS: In situ dialysis catheter with tips in the SVC/RA junction. LUNGS: Central pulmonary vasculature is slightly increased; rule out mild chronic compensated pulmonary venous congestion small bilateral effusions right larger than left. PLEURA: As above. No pneumothorax apparent. CARDIOVASCULAR: No aortic atherosclerotic calcification present. Heart remains markedly enlarged. OSSEOUS STRUCTURES: No significant abnormalities. VISUALIZED UPPER ABDOMEN: Normal. OTHER FINDINGS: None. IMPRESSION: Findings suggest underlying mild chronic compensated pulmonary venous congestion. Clinical correlation recommended. Small bilateral effusions right larger than left
--- NOTE | 2019-02-04 14:03 | US ---
Date of service: 02/03/2019 PROCEDURE: Bilateral lower extremity venous duplex Doppler. HISTORY: Bilateral leg swelling COMPARISON: Comparison made with prior bilateral lower extremity venous Doppler exam 11/22/2018. TECHNIQUE: Bilateral common femoral, superficial femoral, popliteal and posterior tibial veins were evaluated. Flow was assessed with color Doppler, compressibility, assessment of phasic flow and augmentation response. FINDINGS: COMMON FEMORAL VEIN: Right CFV: Unremarkable. Left CFV: Unremarkable. SUPERFICIAL FEMORAL VEIN: Right SFV: Unremarkable. Left SFV: Unremarkable. POPLITEAL VEIN: Right Popliteal: Unremarkable. Left Popliteal: Unremarkable. POSTERIOR TIBIAL VEIN: Right PTV: Unremarkable. Left PTV: Unremarkable. OTHER FINDINGS: None. IMPRESSION: No evidence of deep venous thrombosis.
--- NOTE | 2019-02-04 17:39 | CARD ---
APPROVED REPORT Date of service: 02/03/2019 EKG Measurement Heart [id number] <Conclusion> Normal sinus rhythm Prolonged QT Abnormal ECG
[2019-02-04 19:31] LABS: FOLATE > 20.0 ng/mL
[2019-02-05 05:36] LABS: HEMOGLOBIN 7.9 g/dL (12.0-18.0); MEAN CELL VOLUME 85.3 fl (80.0-94.0); MEAN CORPUSCULAR HEMOGLOBIN 29.1 pg (27.0-31.0); RBC 2.72 Mil/uL (4.40-5.90); RED CELL DISTRIBUTION WIDTH 14.7 % (11.5-14.5); WHITE BLOOD COUNT 5.2 K/uL (4.8-10.8)
[2019-02-05 06:03] LABS: ALB/GLOB RATIO 1.2 (1.0-2.1); ALBUMIN 3.2 g/dL (3.5-5.0); CALCIUM 7.2 mg/dL (8.4-10.2)
[2019-02-05 07:56] LABS: HEPATITIS B SURFACE AG Negative (NEGATIVE)
[2019-02-05 08:01] LABS: HEPATITIS B CORE AB NEGATIVE (NEGATIVE)
[2019-02-05 08:13] LABS: HEPATITIS C ANTIBODY NEGATIVE (NEGATIVE)
--- NOTE | 2019-02-05 12:21 | CP.PCM.PN ---
<HarrietRoma nicholas - Last Filed: 02/05/19 13:00> Subjective - Date & Time of Evaluation Date of Evaluation: 02/05/19 Time of Evaluation: 12:21 - Subjective Subjective: Pt seen and examined this morning bedside, no new complaints. He reports feeling better s/p dialysis and denies fever, chills, SOB, and chest pain. Of note: As per patient - left arm fistula was placed in [facility] Nov 2018 and was being used for "vitamin injections", denies dialysis Objective - Vital Signs/Intake and Output Vital Signs (last 24 hours): Temp Pulse Resp BP Pulse Ox 98.0 F 67 20 145/84 97 02/05/19 08:10 02/05/19 08:59 02/05/19 08:10 02/05/19 08:10 02/05/19 08:10 - Medications Medications: Current Medications Carvedilol (Coreg) 6.25 mg PO Q12 [facility] Last Admin: 02/05/19 08:19 Dose: Not Given Clonidine HCl (Catapres) 0.1 mg PO BID [facility] Last Admin: 02/05/19 08:19 Dose: Not Given Hydralazine HCl (Apresoline) 25 mg PO TID [facility] Last Admin: 02/05/19 08:19 Dose: Not Given Sevelamer Carbonate (Renvela) 1,600 mg PO TID [facility] Last Admin: 02/05/19 08:18 Dose: 1,600 mg - Labs Labs: 02/05/19 05:10 02/05/19 05:10 PT 13.8 Seconds (9.8-13.1) H 02/03/19 18:17 INR 1.2 02/03/19 18:17 APTT 52.3 Seconds (25.6-37.1) H 02/03/19 18:17 - Constitutional Appears: Non-toxic - Head Exam Head Exam: NORMAL INSPECTION - Eye Exam Eye Exam: Normal appearance - ENT Exam ENT Exam: Mucous Membranes Moist - Respiratory Exam Respiratory Exam: Clear to Ausculation Bilateral, NORMAL BREATHING PATTERN. absent: Respiratory Distress - Cardiovascular Exam Cardiovascular Exam: REGULAR RHYTHM, +S1, +S2 - GI/Abdominal Exam GI & Abdominal Exam: Soft. absent: Guarding, Rigid, Tenderness - Extremities Exam Additional comments: Pitting edema +1 - Neurological Exam Neurological Exam: Alert, Awake - Psychiatric Exam Psychiatric exam: Normal Affect, Normal Mood - Skin Skin Exam: Normal Color Assessment and Plan - Assessment and Plan (Free Text) Assessment: 32-year-old male with pmhx of HTN and ESRF presents to ED with a three-day duration of abdominal and low-extremity bloating. HD 02/04, HD 02/05. Plan: Hypertensive urgency -Most likely due to Volume overload due to ESRF -BP on presentation: 233/136, today's range 136-145/76-84 -Monitor for end-organ damage, vitals -Carvedilol 6.25 mg BID, hydralazine 25 mg Q8h, clonidine 0.1 mg BID -Monitor BP ESRF -Currently receiving HD: 02/04, 02/05 -BUN/Cr 128/14.0 (admission 188/17.2) -ProBNP > 175,000 most likely due to ESRF -Dr Perdomo (nephrology) consulted -HD cath - Right IJ chest, Nov 2018 [facility] -Renal diet -Metabolic acidosis sec to renal insufficiency -Needs outpatient HD placement on discharge -Hepatitis B and C negative Anemia -Likely secondary to ESRD -Stool occult positive in ED -Hg/Hct 8.8/26.5 - 7.9/23.2 -Monitor CBC, nephrology recs and input appreciated -Needs colonoscopy from GI -Vit B12 (721) & Folate (>20) wnl -Iron 103 & TIBC 230 -TSH 3.29 UTI -G+ cocci, urine WBC 49, RBC 81, trace esterase -Afebrile -Vanco 750mg s/p dialysis today -Vanco 500mg s/p next dialysis DVT Prevention -SCD <Eden Mai - Last Filed: 02/05/19 13:25> Objective - Vital Signs/Intake and Output Vital Signs (last 24 hours): Temp Pulse Resp BP Pulse Ox 97.6 F 57 L 20 149/86 95 02/05/19 12:42 02/05/19 12:42 02/05/19 12:42 02/05/19 12:42 02/05/19 12:42 - Medications Medications: Current Medications Carvedilol (Coreg) 6.25 mg PO Q12 [facility] Last Admin: 02/05/19 08:19 Dose: Not Given Clonidine HCl (Catapres) 0.1 mg PO BID [facility] Last Admin: 02/05/19 08:19 Dose: Not Given Epoetin [place] (Procrit) 20,000 unit SC [facility] Hydralazine HCl (Apresoline) 25 mg PO TID [facility] Last Admin: 02/05/19 12:27 Dose: 25 mg Vancomycin HCl 750 mg/ Sodium (Chloride) 250 mls @ 166.667 mls/hr IVPB POSTDI ONE; Protocol Stop: 02/05/19 14:16 Iron Sucrose 100 mg/ Sodium (Chloride) 105 mls @ 105 mls/hr IVPB MWF ONE Stop: 02/05/19 14:20 Sevelamer Carbonate (Renvela) 1,600 mg PO TID [facility] Last Admin: 02/05/19 12:24 Dose: 1,600 mg - Labs Labs: 02/05/19 05:10 02/05/19 05:10 PT 13.8 Seconds (9.8-13.1) H 02/03/19 18:17 INR 1.2 02/03/19 18:17 APTT 52.3 Seconds (25.6-37.1) H 02/03/19 18:17 Attending/Attestation - Attestation I have personally seen and examined this patient.: Yes I have fully participated in the care of the patient.: Yes I have reviewed all pertinent clinical information, including history, physical exam and plan: Yes Notes (Text): ESRD on HD Hypertensive Emergency UTI- GRam + Cocci Anemia of Chronic Renal Dis - cont HD -cont Renagel -cont Clonidine , Hydralazine and Coreg - start Epogen and Venofer MWF - start Vanco - renal dose after HD
[2019-02-05] MEDS ORDERED: Epoetin Alfa 20000 UNIT/ML (RENAL DOSE) SC SCH (13:30)
--- NOTE | 2019-02-05 14:14 | CP.PCM.PN ---
Subjective - Date & Time of Evaluation Date of Evaluation: 02/05/19 Time of Evaluation: 01:15 - Subjective Subjective: Feels much better. No SOB Eating better Objective - Vital Signs/Intake and Output Vital Signs (last 24 hours): Temp Pulse Resp BP Pulse Ox 97.6 F 57 L 20 149/86 95 02/05/19 12:42 02/05/19 12:42 02/05/19 12:42 02/05/19 12:42 02/05/19 12:42 - Medications Medications: Current Medications Carvedilol (Coreg) 6.25 mg PO Q12 [facility] Last Admin: 02/05/19 08:19 Dose: Not Given Clonidine HCl (Catapres) 0.1 mg PO BID [facility] Last Admin: 02/05/19 08:19 Dose: Not Given Epoetin [place] (Procrit) 20,000 unit SC MWF [facility] Hydralazine HCl (Apresoline) 25 mg PO TID [facility] Last Admin: 02/05/19 12:27 Dose: 25 mg Vancomycin HCl 750 mg/ Sodium (Chloride) 250 mls @ 166.667 mls/hr IVPB POSTDI ONE; Protocol Stop: 02/05/19 14:16 Iron Sucrose 100 mg/ Sodium (Chloride) 105 mls @ 105 mls/hr IVPB MWF ONE Stop: 02/05/19 14:20 Sevelamer Carbonate (Renvela) 1,600 mg PO TID [facility] Last Admin: 02/05/19 12:24 Dose: 1,600 mg - Labs Labs: 02/05/19 05:10 02/05/19 05:10 PT 13.8 Seconds (9.8-13.1) H 02/03/19 18:17 INR 1.2 02/03/19 18:17 APTT 52.3 Seconds (25.6-37.1) H 02/03/19 18:17 - Constitutional Appears: No Acute Distress - Eye Exam Additional comments: Conjunctiva pale. No icterus - ENT Exam ENT Exam: Mucous Membranes Moist - Neck Exam Additional comments: JVD + @ 35 degrees - Respiratory Exam Respiratory Exam: NORMAL BREATHING PATTERN Additional comments: No rub - GI/Abdominal Exam GI & Abdominal Exam: Soft Additional comments: No tenderness - Extremities Exam Additional comments: 2+ B/L pedal edema. Good bruit over Lt arm AVF. Assessment and Plan - Assessment and Plan (Free Text) Assessment: ESRSD /Missed dialysis treatments/uremia Pt reports that an AVF was placed left arm in [facility] but has not been used yet. Volume overload , B/L pleural effusions. Pericardial effusion without tamponad on previous admissions . Most likely uremic Needs repeat Echo HTN Anemia of chronic kidney dis. Plan: Pt tolerated second short dialysis treatment well. Pt is scheduled for another treatment tomorrow. Had mod- large pericardial effusion. Echocardiogram is ordered. PTH pending.
--- NOTE | 2019-02-05 17:55 | CARD ---
APPROVED REPORT Date of service: 02/05/2019 EXAM: Two-dimensional and M-mode echocardiogram with Doppler and color Doppler. Other Information Quality : ExcellentRhythm : NSR INDICATION Pericardial Effusion 2D DIMENSIONS IVSd1.59 (0.7-1.1cm)LVDd4.90 (3.9-5.9cm) LVOT Diameter2.73 (1.8-2.4cm)PWd1.55 (0.7-1.1cm) IVSs2.11 (0.8-1.2cm)LVDs3.16 (2.5-4.0cm) FS (%) 35.5 %PWs2.25 (0.8-1.2cm) M-Mode DIMENSIONS Left Atrium (MM)4.81 (2.5-4.0cm)IVSd1.56 (0.7-1.1cm) Aortic Root3.34 (2.2-3.7cm)LVDd5.34 (4.0-5.6cm) Aortic Cusp Exc.1.88 (1.5-2.0cm)PWd1.50 (0.7-1.1cm) IVSs1.56 cmFS (%) 30 % LVDs3.75 (2.0-3.8cm)PWs2.22 cm Aortic Valve AoV Peak Pjkownaj026.0cm/sAoV VTI31.0cmAO Peak GR.9mmHg LVOT Peak Athkrsdv085.9cm/sLVOT VTI21.82cmAO Mean GR.5mmHg AYAAN (VMAX)2.61tr4VKW (VTI)2.22cm2 Mitral Valve MV E Fivtyggl83.0cm/sMV DECEL [id number] A Piaawvtc37.9cm/s MV URD17utI/A ratio2.6MVA (PHT)3.18cm2 TDI E/Lateral E'0.0E/Medial E'0.0 Tricuspid Valve TR Peak Bnhercbn536wx/sRAP [id number] Peak Gr.50mmHg [id number] LEFT VENTRICLE The left ventricle is normal size. There is moderate concentric left ventricular hypertrophy. The left ventricular systolic function is normal. The estimated ejection fraction is 50-55% No regional wall motion abnormalities noted.. Incomplete assessment of diastolic function. No left ventricle thrombus noted on this study. There is no ventricular septal defect visualized. There is no left ventricular aneurysm. There is no mass noted in the left ventricle. RIGHT VENTRICLE The right ventricle is normal size. There is normal right ventricular wall thickness. The right ventricular systolic function is normal. ATRIA The left atrium is moderately dilated. The right atrium size is normal. The interatrial septum is intact with no evidence for an atrial septal defect. AORTIC VALVE The aortic valve is normal in structure. Mild aortic regurgitation is present. There is no aortic valvular stenosis. There is no aortic valvular vegetation. MITRAL VALVE The mitral valve is normal in structure. There is no evidence of mitral valve prolapse. There is no mitral valve stenosis. There is mild to moderate mitral valve regurgitation noted. TRICUSPID VALVE The tricuspid valve is normal in structure. There is moderate tricuspid valve regurgitation noted. RVSP is calculated at 57 mm Hg. Consistent with moderate pulmonary hypertension. There is no tricuspid valve prolapse or vegetation. There is no tricuspid valve stenosis. PULMONIC VALVE The pulmonary valve is normal in structure. There is no pulmonic valvular regurgitation. There is no pulmonic valvular stenosis. GREAT VESSELS The aortic root is normal in size. The ascending aorta is normal in size. The pulmonary artery is normal. The IVC is normal in size and collapses >50% with inspiration. PERICARDIAL EFFUSION There is small to medium sized pericardial effusion, mostly located in the posterior aspect. No signs of tamponade. There is no pleural effusion. <Conclusion> There is moderate concentric left ventricular hypertrophy. The estimated ejection fraction is 50-55% Incomplete assessment of diastolic function. The left atrium is moderately dilated. Mild aortic regurgitation is present. There is mild to moderate mitral valve regurgitation noted. There is moderate tricuspid valve regurgitation noted. RVSP is calculated at 57 mm Hg. Consistent with moderate pulmonary hypertension. There is small to medium sized pericardial effusion, mostly located in the posterior aspect. No signs of tamponade.
[2019-02-06 06:55] LABS: BASO % 0.7 % (0.0-2.0); EOS # 0.3 K/uL (0.0-0.7); EOS % 5.2 % (0.0-4.0); HEMOGLOBIN 7.5 g/dL (12.0-18.0); LYMPH # 0.8 K/uL (1.0-4.3); LYMPH % 14.3 % (20.0-40.0); MEAN CELL VOLUME 86.2 fl (80.0-94.0); MEAN CORPUSCULAR HGB CONC 33.7 g/dL (33.0-37.0); MEAN PLATELET VOLUME 8.1 fl (7.2-11.7); MONO # 0.9 K/uL (0.0-0.8); MONO % 17.4 % (0.0-10.0); NEUT # 3.3 K/uL (1.8-7.0); NEUT % 62.4 % (50.0-75.0); RBC 2.59 Mil/uL (4.40-5.90); RED CELL DISTRIBUTION WIDTH 14.3 % (11.5-14.5); WHITE BLOOD COUNT 5.3 K/uL (4.8-10.8)
[2019-02-06 07:18] LABS: ALB/GLOB RATIO 1.1 (1.0-2.1); CALCIUM 7.1 mg/dL (8.4-10.2)
--- NOTE | 2019-02-06 11:44 | CP.PCM.PN ---
<Roma Denny - Last Filed: 02/06/19 11:55> Subjective - Date & Time of Evaluation Date of Evaluation: 02/06/19 Time of Evaluation: 11:43 - Subjective Subjective: Pt seen and examined this morning bedside, no new complaints. He reports feeling much better s/p dialysis and denies fever, chills, SOB, and chest pain. Agrees to one unit PRBC, risks reviewed with office specialist, consent obtained. Objective - Vital Signs/Intake and Output Vital Signs (last 24 hours): Temp Pulse Resp BP Pulse Ox 98.0 F 68 18 154/83 H 97 02/06/19 08:37 02/06/19 10:10 02/06/19 08:37 02/06/19 10:10 02/06/19 08:37 - Medications Medications: Current Medications Carvedilol (Coreg) 6.25 mg PO Q12 [facility] Last Admin: 02/06/19 10:10 Dose: 6.25 mg Clonidine HCl (Catapres) 0.1 mg PO BID [facility] Last Admin: 02/06/19 10:53 Dose: Not Given Epoetin Destin (Procrit) 3,000 unit SC TTS [facility] Hydralazine HCl (Apresoline) 50 mg PO TID [facility] Sevelamer Carbonate (Renvela) 1,600 mg PO TID [facility] Last Admin: 02/06/19 10:11 Dose: 1,600 mg - Labs Labs: 02/06/19 06:00 02/06/19 06:00 PT 13.8 Seconds (9.8-13.1) H 02/03/19 18:17 INR 1.2 02/03/19 18:17 APTT 52.3 Seconds (25.6-37.1) H 02/03/19 18:17 - Constitutional Appears: Non-toxic - Head Exam Head Exam: NORMAL INSPECTION - Eye Exam Eye Exam: Normal appearance - ENT Exam ENT Exam: Mucous Membranes Moist - Respiratory Exam Respiratory Exam: NORMAL BREATHING PATTERN. absent: Respiratory Distress - Cardiovascular Exam Cardiovascular Exam: REGULAR RHYTHM - GI/Abdominal Exam GI & Abdominal Exam: Soft. absent: Tenderness - Extremities Exam Additional comments: +1 edema - Neurological Exam Neurological Exam: Alert, Awake, Oriented x3 - Psychiatric Exam Psychiatric exam: Normal Affect, Normal Mood - Skin Skin Exam: Dry, Intact, Warm Assessment and Plan - Assessment and Plan (Free Text) Assessment: 32-year-old male with pmhx of HTN and ESRF presents to ED with a three-day duration of abdominal and lower extremity bloating. HD 02/04, HD 02/05. As per nephro next HD today 02/06 Plan: Hypertensive urgency -Most likely due to Volume overload due to ESRF -As per Dr Perdomo: f/u ECHO d/t previous pericardial effusion without tamponad -BP on presentation: 233/136, today's range 150's/80's -Monitor for end-organ damage, vitals -Carvedilol 6.25 mg BID, hydralazine 50 mg TID, clonidine 0.1 mg BID -Monitor BP ESRF -Currently receiving HD: 02/04, 02/05, next due 02/06 -BUN/Cr 84/10.8 (admission 188/17.2) -ProBNP > 175,000 most likely due to ESRF -Dr Perdomo (nephrology) consulted, input appreciated -HD cath - Right IJ chest, Nov 2018 [facility] -Renal diet -Metabolic acidosis sec to renal insufficiency -Needs outpatient HD placement on discharge -Hepatitis B not immune, Hep C negative Anemia -Likely secondary to ESRD -Stool occult positive in ED -Hg/Hct 8.8/26.5 - 7.5/22.3 -Monitor CBC, nephrology recs and input appreciated -Needs colonoscopy from GI -Vit B12 (721) & Folate (>20) wnl -Iron 103 & TIBC 230 -TSH 3.29 -1 PRBC today, 02/05 UTI -G+ cocci, urine WBC 49, RBC 81, trace esterase -Afebrile -Vanco 750mg s/p dialysis 02/05 -Vanco 500mg s/p next dialysis today DVT Prevention -SCD <Eden Mai - Last Filed: 02/06/19 19:45> Objective - Vital Signs/Intake and Output Vital Signs (last 24 hours): Temp Pulse Resp BP Pulse Ox 97.9 F 61 20 172/113 H 99 02/06/19 16:23 02/06/19 16:26 02/06/19 16:23 02/06/19 16:26 02/06/19 16:23 - Medications Medications: Current Medications Carvedilol (Coreg) 6.25 mg PO Q12 [facility] Last Admin: 02/06/19 10:10 Dose: 6.25 mg Clonidine HCl (Catapres) 0.1 mg PO BID [facility] Last Admin: 02/06/19 16:23 Dose: 0.1 mg Epoetin Destin (Procrit) 3,000 unit SC TTS [facility] Last Admin: 02/06/19 17:44 Dose: 3,000 unit Hydralazine HCl (Apresoline) 50 mg PO TID [facility] Last Admin: 02/06/19 16:26 Dose: 50 mg Sevelamer Carbonate (Renvela) 1,600 mg PO TID [facility] Last Admin: 02/06/19 17:07 Dose: 1,600 mg - Labs Labs: 02/06/19 06:00 02/06/19 06:00 PT 13.8 Seconds (9.8-13.1) H 02/03/19 18:17 INR 1.2 02/03/19 18:17 APTT 52.3 Seconds (25.6-37.1) H 02/03/19 18:17 Attending/Attestation - Attestation I have personally seen and examined this patient.: Yes I have fully participated in the care of the patient.: Yes I have reviewed all pertinent clinical information, including history, physical exam and plan: Yes Notes (Text): ESRD on HD Hypertensive Emergency UTI- GRam + Cocci Anemia of Chronic Renal Dis - Pt had 3 HD days back to back -cont Renagel -cont Clonidine and Coreg, Increase Hydralazine 50mg tid - started Epogen and Venofer MWF - IV Vanco - renal dose after HD for UTI, ff up culture and sensitivity 02/06/19 19:44
--- NOTE | 2019-02-06 14:30 | CP.PCM.PN ---
Subjective - Date & Time of Evaluation Date of Evaluation: 02/06/19 Time of Evaluation: 02:25 - Subjective Subjective: Currently on dialysis. Appears comfortable supine Objective - Vital Signs/Intake and Output Vital Signs (last 24 hours): Temp Pulse Resp BP Pulse Ox 98.0 F 68 18 154/83 H 97 02/06/19 08:37 02/06/19 10:10 02/06/19 08:37 02/06/19 10:10 02/06/19 08:37 - Medications Medications: Current Medications Carvedilol (Coreg) 6.25 mg PO Q12 [facility] Last Admin: 02/06/19 10:10 Dose: 6.25 mg Clonidine HCl (Catapres) 0.1 mg PO BID [facility] Last Admin: 02/06/19 10:53 Dose: Not Given Epoetin Destin (Procrit) 3,000 unit SC TTS [facility] Hydralazine HCl (Apresoline) 50 mg PO TID [facility] Last Admin: 02/06/19 13:00 Dose: Not Given Sevelamer Carbonate (Renvela) 1,600 mg PO TID [facility] Last Admin: 02/06/19 10:11 Dose: 1,600 mg - Labs Labs: 02/06/19 06:00 02/06/19 06:00 PT 13.8 Seconds (9.8-13.1) H 02/03/19 18:17 INR 1.2 02/03/19 18:17 APTT 52.3 Seconds (25.6-37.1) H 02/03/19 18:17 - Constitutional Appears: No Acute Distress - Head Exam Head Exam: ATRAUMATIC, NORMOCEPHALIC - Eye Exam Additional comments: Conjunctiva pale. No icterus - ENT Exam ENT Exam: Mucous Membranes Moist - Neck Exam Additional comments: JVD + @ 35 degrees - Respiratory Exam Respiratory Exam: NORMAL BREATHING PATTERN Additional comments: Lungs clear - Cardiovascular Exam Cardiovascular Exam: REGULAR RHYTHM - GI/Abdominal Exam GI & Abdominal Exam: Soft Additional comments: No tenderness - Extremities Exam Additional comments: No pedal edema + bruit over AVF Assessment and Plan - Assessment and Plan (Free Text) Assessment: ESRD. Missed dialysis treatments, Etiology of kidney dis is unclear. On initial admission had nephrotic proteinuria & negative serologies. Pt had refused kidney Bx. Volume overload is improving improving Anemia. Receiving one UPRBCs with dialysis today. On Epogen. Tsat 43% hence IV iron was held Pericardial effusion ( uremic )Echo report reviewed. The effusion is now small to med size Plan: Continue HD TTS Monitor Hb. Increase Epogen dose if needed iPTH is normal. Will repeat.
[2019-02-06] MEDS: Epoetin Alfa 20000 UNIT/ML Inj SC SCH (17:44)
[2019-02-07 06:58] LABS: ALB/GLOB RATIO 1.1 (1.0-2.1); ALBUMIN 3.2 g/dL (3.5-5.0); CALCIUM 7.7 mg/dL (8.4-10.2)
[2019-02-07 07:02] LABS: HEMOGLOBIN 8.8 g/dL (12.0-18.0); MEAN CELL VOLUME 85.1 fl (80.0-94.0); MEAN CORPUSCULAR HEMOGLOBIN 28.7 pg (27.0-31.0); MEAN CORPUSCULAR HGB CONC 33.7 g/dL (33.0-37.0); RBC 3.07 Mil/uL (4.40-5.90); WHITE BLOOD COUNT 6.2 K/uL (4.8-10.8)
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
--- NOTE | 2019-02-07 14:31 | CP.PCM.PN ---
Subjective - Date & Time of Evaluation Date of Evaluation: 02/07/19 Time of Evaluation: 01:50 - Subjective Subjective: No complaints offerred. Appears comfortable supine. Objective - Vital Signs/Intake and Output Vital Signs (last 24 hours): Temp Pulse Resp BP Pulse Ox 98.5 F 88 19 162/82 H 96 02/07/19 08:07 02/07/19 13:17 02/07/19 08:07 02/07/19 13:17 02/07/19 08:07 - Medications Medications: Current Medications Carvedilol (Coreg) 6.25 mg PO Q12 [facility] Last Admin: 02/07/19 10:20 Dose: 6.25 mg Clonidine HCl (Catapres) 0.1 mg PO BID [facility] Last Admin: 02/07/19 10:19 Dose: 0.1 mg Epoetin Destin (Procrit) 3,000 unit SC TTS [facility] Last Admin: 02/06/19 17:44 Dose: 3,000 unit Hydralazine HCl (Apresoline) 50 mg PO TID [facility] Last Admin: 02/07/19 13:17 Dose: 50 mg Sevelamer Carbonate (Renvela) 1,600 mg PO TID [facility] Last Admin: 02/07/19 13:18 Dose: 1,600 mg - Labs Labs: 02/07/19 05:40 02/07/19 05:40 PT 13.8 Seconds (9.8-13.1) H 02/03/19 18:17 INR 1.2 02/03/19 18:17 APTT 52.3 Seconds (25.6-37.1) H 02/03/19 18:17 - Constitutional Appears: No Acute Distress - Head Exam Head Exam: ATRAUMATIC, NORMOCEPHALIC - Eye Exam Eye Exam: Normal appearance - ENT Exam ENT Exam: Mucous Membranes Moist - Neck Exam Additional comments: No jugular venous distension - Respiratory Exam Respiratory Exam: NORMAL BREATHING PATTERN Additional comments: Lungs clear - Cardiovascular Exam Cardiovascular Exam: REGULAR RHYTHM Additional comments: sm @ apex - GI/Abdominal Exam GI & Abdominal Exam: Soft - Extremities Exam Additional comments: No edema Assessment and Plan - Assessment and Plan (Free Text) Assessment: ESRD on [facility] HD HTN Anemia . Was transfused one unit PRBCs yesterday Plan: For dialysis tomorrowMonitor BP On Epogen.
[2019-02-08 07:33] LABS: HEMOGLOBIN 9.2 g/dL (12.0-18.0); MEAN CELL VOLUME 85.1 fl (80.0-94.0); RBC 3.17 Mil/uL (4.40-5.90); RED CELL DISTRIBUTION WIDTH 15.3 % (11.5-14.5)
[2019-02-08 07:45] LABS: ALB/GLOB RATIO 1.2 (1.0-2.1); ALBUMIN 3.1 g/dL (3.5-5.0); CALCIUM 7.9 mg/dL (8.4-10.2)
[2019-02-08] MEDS: Epoetin Alfa 20000 UNIT/ML Inj SC SCH ×2 (10:59→13:03)
--- NOTE | 2019-02-08 12:22 | CP.PCM.PN ---
<Roma Denny - Last Filed: 02/08/19 12:27> Subjective - Date & Time of Evaluation Date of Evaluation: 02/08/19 Time of Evaluation: 12:22 - Subjective Subjective: Pt seen and examined bedside, no new complaints. Ambulating and eating without difficulty. Denies fever, chills, SOB, chest pain and dizziness. HD today. Objective - Vital Signs/Intake and Output Vital Signs (last 24 hours): Temp Pulse Resp BP Pulse Ox 97.6 F 68 20 154/82 H 97 02/08/19 07:40 02/08/19 09:14 02/08/19 07:40 02/08/19 09:14 02/08/19 07:40 - Medications Medications: Current Medications Carvedilol (Coreg) 6.25 mg PO Q12 [facility] Last Admin: 02/08/19 09:14 Dose: 6.25 mg Clonidine HCl (Catapres) 0.1 mg PO BID [facility] Last Admin: 02/08/19 09:14 Dose: 0.1 mg Epoetin Destin (Procrit) 3,000 unit SC TTS [facility] Last Admin: 02/08/19 10:59 Dose: Not Given Hydralazine HCl (Apresoline) 50 mg PO TID [facility] Last Admin: 02/08/19 09:13 Dose: 50 mg Sevelamer Carbonate (Renvela) 1,600 mg PO TID [facility] Last Admin: 02/08/19 09:15 Dose: 1,600 mg - Labs Labs: 02/08/19 07:05 02/08/19 07:05 PT 13.8 Seconds (9.8-13.1) H 02/03/19 18:17 INR 1.2 02/03/19 18:17 APTT 52.3 Seconds (25.6-37.1) H 02/03/19 18:17 - Constitutional Appears: Non-toxic, No Acute Distress - Head Exam Head Exam: NORMAL INSPECTION - Eye Exam Eye Exam: Normal appearance - ENT Exam ENT Exam: Mucous Membranes Moist - Respiratory Exam Respiratory Exam: NORMAL BREATHING PATTERN. absent: Respiratory Distress Additional comments: Right IJ tunneled cathether, placed Nov 2018 [facility] - Cardiovascular Exam Cardiovascular Exam: REGULAR RHYTHM - GI/Abdominal Exam GI & Abdominal Exam: Soft. absent: Tenderness - Extremities Exam Extremities Exam: Normal Inspection Additional comments: left arm AV fistula, Meet Nov 2018 - Psychiatric Exam Psychiatric exam: Normal Affect, Normal Mood - Skin Skin Exam: Dry, Intact, Warm Assessment and Plan - Assessment and Plan (Free Text) Assessment: 32-year-old male with pmhx of HTN and ESRF presents to ED with a three-day duration of abdominal and lower extremity bloating. HD 02/04, 02/05, 02/06; next due 02/08 -, Tue schedule Plan: Hypertensive urgency -Most likely due to Volume overload due to ESRF -ECHO (02/06): EF 50-55%, pericardial effusion small-med (Nov 2018 moderate-large) -BP on presentation: 233/136, today's range 150's/80's -Carvedilol 6.25 mg BID, hydralazine 50 mg TID (increased from 25mg yesterday), clonidine 0.1 mg BID -Monitor BP, monitor for end-organ damage, vitals ESRF -Currently receiving HD: 02/04, 02/05, 02/06, next 02/08 -Going forawrd , , Sat schedule -BUN/Cr 67/10.7 (admission 188/17.2) -Dr Perdomo (nephrology) consulted, input appreciated -ProBNP > 175,000 most likely due to ESRF -Sevelamer Carbonate 1600mg PO TID, Phos 9.5 (02/03) -f/u phosph -HD cath - Right IJ chest, Nov 2018 [facility] -Renal diet -Metabolic acidosis sec to renal insufficiency -Needs outpatient HD placement on discharge -Hepatitis B not immune, Hep C negative Anemia -Likely secondary to ESRD -Stool occult positive in ED -s/p 1 PRBC (02/05) -Hg/Hct 9.2/27.0 (8.8/26.5 admission, baseline) -Monitor CBC -Increase Epogen dose if needed as per nephrology (current 3000) -Needs colonoscopy from GI -Vit B12 (721), Folate (>20) wnl, Iron 103, TIBC 230, TSH 3.29 UTI -G+ cocci, urine WBC 49, RBC 81, trace esterase -Afebrile -Vanco 750mg s/p dialysis 02/05 -Vanco 500mg s/p dialysis 02/06 DVT Prevention -SCD <Barby Hernández - Last Filed: 02/08/19 15:04> Objective - Vital Signs/Intake and Output Vital Signs (last 24 hours): Temp Pulse Resp BP Pulse Ox 97.6 F 68 20 154/82 H 97 02/08/19 07:40 02/08/19 09:14 02/08/19 07:40 02/08/19 09:14 02/08/19 07:40 - Medications Medications: Current Medications Carvedilol (Coreg) 6.25 mg PO Q12 [facility] Last Admin: 02/08/19 09:14 Dose: 6.25 mg Clonidine HCl (Catapres) 0.1 mg PO BID [facility] Last Admin: 02/08/19 09:14 Dose: 0.1 mg Epoetin Destin (Procrit) 3,000 unit SC TTS [facility] Last Admin: 02/08/19 13:03 Dose: 3,000 unit Hydralazine HCl (Apresoline) 50 mg PO TID [facility] Last Admin: 02/08/19 13:06 Dose: Not Given Sevelamer Carbonate (Renvela) 1,600 mg PO TID [facility] Last Admin: 02/08/19 13:06 Dose: Not Given - Labs Labs: 02/08/19 07:05 02/08/19 07:05 PT 13.8 Seconds (9.8-13.1) H 02/03/19 18:17 INR 1.2 02/03/19 18:17 APTT 52.3 Seconds (25.6-37.1) H 02/03/19 18:17 Attending/Attestation - Attestation I have personally seen and examined this patient.: Yes I have fully participated in the care of the patient.: Yes I have reviewed all pertinent clinical information, including history, physical exam and plan: Yes Notes (Text): 02/08/19 15:03 Agree with findings and plan as above.
--- NOTE | 2019-02-08 13:36 | CP.PCM.PN ---
Subjective - Date & Time of Evaluation Date of Evaluation: 02/08/19 Time of Evaluation: 01:15 - Subjective Subjective: Feels better. No c/o SOB Currently receliving dialysis. Objective - Vital Signs/Intake and Output Vital Signs (last 24 hours): Temp Pulse Resp BP Pulse Ox 97.6 F 68 20 154/82 H 97 02/08/19 07:40 02/08/19 09:14 02/08/19 07:40 02/08/19 09:14 02/08/19 07:40 - Medications Medications: Current Medications Carvedilol (Coreg) 6.25 mg PO Q12 [facility] Last Admin: 02/08/19 09:14 Dose: 6.25 mg Clonidine HCl (Catapres) 0.1 mg PO BID [facility] Last Admin: 02/08/19 09:14 Dose: 0.1 mg Epoetin Destin (Procrit) 3,000 unit SC TTS [facility] Last Admin: 02/08/19 13:03 Dose: 3,000 unit Hydralazine HCl (Apresoline) 50 mg PO TID [facility] Last Admin: 02/08/19 13:06 Dose: Not Given Sevelamer Carbonate (Renvela) 1,600 mg PO TID [facility] Last Admin: 02/08/19 13:06 Dose: Not Given - Labs Labs: 02/08/19 07:05 02/08/19 07:05 PT 13.8 Seconds (9.8-13.1) H 02/03/19 18:17 INR 1.2 02/03/19 18:17 APTT 52.3 Seconds (25.6-37.1) H 02/03/19 18:17 - Constitutional Appears: No Acute Distress - Head Exam Head Exam: ATRAUMATIC, NORMOCEPHALIC - Eye Exam Additional comments: Conjunctiva pale - ENT Exam ENT Exam: Mucous Membranes Moist - Neck Exam Additional comments: JVD + @ 35 deg. - Respiratory Exam Respiratory Exam: NORMAL BREATHING PATTERN Additional comments: Lungs clear - GI/Abdominal Exam GI & Abdominal Exam: Soft - Extremities Exam Additional comments: No pedal edema. Assessment and Plan - Assessment and Plan (Free Text) Assessment: ESRD on HD TTS Blood pressure control is better Creat remains high Will increase blood flow during dialysis. Hyponatremia secondary to volume overload. UF goal 3 Kg. Plan: Continue HD per schedule Renal diet Nepro.
[2019-02-09 06:19] LABS: HEMOGLOBIN 10.9 g/dL (12.0-18.0); MEAN CELL VOLUME 85.2 fl (80.0-94.0); MEAN CORPUSCULAR HEMOGLOBIN 28.6 pg (27.0-31.0); MEAN CORPUSCULAR HGB CONC 33.5 g/dL (33.0-37.0); RBC 3.82 Mil/uL (4.40-5.90); RED CELL DISTRIBUTION WIDTH 15.3 % (11.5-14.5); WHITE BLOOD COUNT 6.2 K/uL (4.8-10.8)
[2019-02-09 06:43] LABS: ALB/GLOB RATIO 1.2 (1.0-2.1); CALCIUM 8.8 mg/dL (8.4-10.2)
--- NOTE | 2019-02-09 12:59 | CP.PCM.PN ---
<Roma Denny - Last Filed: 02/09/19 13:06> Subjective - Date & Time of Evaluation Date of Evaluation: 02/09/19 Time of Evaluation: 12:59 - Subjective Subjective: Pt seen and examined bedside, no new complaints. Ambulating and eating without difficulty. Denies fever, chills, SOB, chest pain and dizziness. HD tomorrow. Objective - Vital Signs/Intake and Output Vital Signs (last 24 hours): Temp Pulse Resp BP Pulse Ox 97.5 F L 63 20 121/72 98 02/09/19 07:42 02/09/19 12:23 02/09/19 07:42 02/09/19 12:23 02/09/19 07:42 - Medications Medications: Current Medications Carvedilol (Coreg) 12.5 mg PO Q12 [facility] Last Admin: 02/09/19 12:23 Dose: 12.5 mg Clonidine HCl (Catapres) 0.1 mg PO BID [facility] Last Admin: 02/09/19 08:49 Dose: 0.1 mg Epoetin Destin (Procrit) 3,000 unit SC TTS [facility] Last Admin: 02/08/19 13:03 Dose: 3,000 unit Hydralazine HCl (Apresoline) 50 mg PO TID [facility] Last Admin: 02/09/19 12:23 Dose: 50 mg Sevelamer Carbonate (Renvela) 1,600 mg PO TID [facility] Last Admin: 02/09/19 12:24 Dose: 1,600 mg - Labs Labs: 02/09/19 06:05 02/09/19 06:05 PT 13.8 Seconds (9.8-13.1) H 02/03/19 18:17 INR 1.2 02/03/19 18:17 APTT 52.3 Seconds (25.6-37.1) H 02/03/19 18:17 - Constitutional Appears: Non-toxic, No Acute Distress - Eye Exam Eye Exam: Normal appearance - Respiratory Exam Respiratory Exam: NORMAL BREATHING PATTERN. absent: Respiratory Distress Additional comments: Right IJ tunneled cathether, placed Nov 2018 [facility] - Cardiovascular Exam Cardiovascular Exam: REGULAR RHYTHM - GI/Abdominal Exam GI & Abdominal Exam: Soft. absent: Tenderness - Extremities Exam Extremities Exam: absent: Pedal Edema Additional comments: left arm AV fistula, Meet Nov 2018 - Neurological Exam Neurological Exam: Alert, Awake - Psychiatric Exam Psychiatric exam: Normal Affect, Normal Mood - Skin Skin Exam: Dry, Intact, Normal Color, Warm Assessment and Plan - Assessment and Plan (Free Text) Assessment: 32-year-old male with pmhx of HTN and ESRF presents to ED with a three-day d uration of abdominal and lower extremity bloating. Stool occult positive in ED, GI on board, awaiting recommendations. HD 02/04, 02/05, 02/06; 02/08 -, Tue schedule Plan: Hypertensive urgency -Most likely due to Volume overload due to ESRF -ECHO (02/06): EF 50-55%, pericardial effusion small-med (Nov 2018 moderate-large) -BP on presentation: 233/136, today's range 120's/70's -Carvedilol 12.5 (increased today from 6.25) mg BID, hydralazine 50 mg TID (increased from 25mg yesterday), clonidine 0.1 mg BID -Monitor BP, monitor for end-organ damage, vitals ESRF -Currently receiving HD: 02/04, 02/05, 02/06, 02/08 -, , Sat schedule -BUN/Cr 39/8.4 (admission 188/17.2) -Dr Perdomo (nephrology) consulted, input appreciated -ProBNP > 175,000 most likely due to ESRF -Sevelamer Carbonate 1600mg PO TID, Phos 5.1 (02/08) -HD cath - Right IJ chest, Nov 2018 [facility] -Renal diet -Metabolic acidosis sec to renal insufficiency -Needs outpatient HD placement on discharge -Hepatitis B not immune, Hep C negative Anemia -Likely secondary to ESRD -Stool occult positive in ED -s/p 1 PRBC (02/05) -Hg/Hct 10.9/32.5 (8.8/26.5 admission, baseline) -Monitor CBC -Increase Epogen dose if needed as per nephrology (current 3000) -GI consulted, input and recs appreciated -Vit B12 (721), Folate (>20) wnl, Iron 103, TIBC 230, TSH 3.29 UTI -G+ cocci, urine WBC 49, RBC 81, trace esterase -Afebrile -Vanco 750mg s/p dialysis 02/05 -Vanco 500mg s/p dialysis 02/06 DVT Prevention -SCD <Favian Martel D - Last Filed: 02/09/19 17:46> Objective - Vital Signs/Intake and Output Vital Signs (last 24 hours): Temp Pulse Resp BP Pulse Ox 97.2 F L 63 18 143/85 98 02/09/19 16:48 02/09/19 16:48 02/09/19 16:48 02/09/19 16:48 02/09/19 16:48 - Medications Medications: Current Medications Carvedilol (Coreg) 12.5 mg PO Q12 [facility] Last Admin: 02/09/19 12:23 Dose: 12.5 mg Clonidine HCl (Catapres) 0.1 mg PO BID [facility] Last Admin: 02/09/19 16:32 Dose: 0.1 mg Epoetin Destin (Procrit) 3,000 unit SC TTS [facility] Last Admin: 02/08/19 13:03 Dose: 3,000 unit Hydralazine HCl (Apresoline) 50 mg PO TID [facility] Last Admin: 02/09/19 16:31 Dose: 50 mg Sevelamer Carbonate (Renvela) 1,600 mg PO TID [facility] Last Admin: 02/09/19 16:32 Dose: 1,600 mg - Labs Labs: 02/09/19 06:05 02/09/19 06:05 PT 13.8 Seconds (9.8-13.1) H 02/03/19 18:17 INR 1.2 02/03/19 18:17 APTT 52.3 Seconds (25.6-37.1) H 02/03/19 18:17 Attending/Attestation - Attestation I have personally seen and examined this patient.: Yes I have fully participated in the care of the patient.: Yes I have reviewed all pertinent clinical information, including history, physical exam and plan: Yes Notes (Text): 02/09/19 17:45 Patient seen and examined with resident. Case discussed and agreed with assessment.
--- NOTE | 2019-02-09 14:55 | CP.PCM.PN ---
Subjective - Date & Time of Evaluation Date of Evaluation: 02/09/19 Time of Evaluation: 02:35 - Subjective Subjective: Feels better.Eating well Objective - Vital Signs/Intake and Output Vital Signs (last 24 hours): Temp Pulse Resp BP Pulse Ox 97.5 F L 63 20 121/72 98 02/09/19 07:42 02/09/19 12:23 02/09/19 07:42 02/09/19 12:23 02/09/19 07:42 - Medications Medications: Current Medications Carvedilol (Coreg) 12.5 mg PO Q12 [facility] Last Admin: 02/09/19 12:23 Dose: 12.5 mg Clonidine HCl (Catapres) 0.1 mg PO BID [facility] Last Admin: 02/09/19 08:49 Dose: 0.1 mg Epoetin Destin (Procrit) 3,000 unit SC TTS [facility] Last Admin: 02/08/19 13:03 Dose: 3,000 unit Hydralazine HCl (Apresoline) 50 mg PO TID [facility] Last Admin: 02/09/19 12:23 Dose: 50 mg Sevelamer Carbonate (Renvela) 1,600 mg PO TID [facility] Last Admin: 02/09/19 12:24 Dose: 1,600 mg - Labs Labs: 02/09/19 06:05 02/09/19 06:05 PT 13.8 Seconds (9.8-13.1) H 02/03/19 18:17 INR 1.2 02/03/19 18:17 APTT 52.3 Seconds (25.6-37.1) H 02/03/19 18:17 - Constitutional Appears: No Acute Distress - Head Exam Head Exam: ATRAUMATIC, NORMOCEPHALIC - Eye Exam Eye Exam: Normal appearance - ENT Exam ENT Exam: Mucous Membranes Moist - Neck Exam Additional comments: JVD nefgative - Respiratory Exam Respiratory Exam: NORMAL BREATHING PATTERN Additional comments: Lungs clear - Cardiovascular Exam Cardiovascular Exam: REGULAR RHYTHM - GI/Abdominal Exam GI & Abdominal Exam: Soft Additional comments: No tenderness - Extremities Exam Additional comments: No edema Assessment and Plan - Assessment and Plan (Free Text) Assessment: ESRD on maintenance HD SHPT HTN now controlled Plan: For HD tomorrow. Hb is improving Add Hectoral Rdepeat urine C&S
--- NOTE | 2019-02-10 02:35 | CON ---
DATE: 02/09/2019 REFERRING PHYSICIAN: Favian Martel MD REASON FOR CONSULTATION: Anemia. HISTORY OF PRESENT ILLNESS: This is a 33-year-old male with history of end-stage renal disease, on dialysis. Has abdominal pain, discomfort and bloating. GI consultation is required for his anemia. The patient has not seen blood in the stool in the past. No active evidence of hematemesis or hematochezia at this point. Currently lying in bed comfortable, in no apparent distress. PAST MEDICAL HISTORY: As above. PAST SURGICAL HISTORY: As above. MEDICATIONS: Reviewed. REVIEW OF SYSTEMS: All other systems have been reviewed and negative apart from the HPI. PHYSICAL EXAMINATION: VITAL SIGNS: Here in the hospital grossly unremarkable. GENERAL: A pleasant middle-aged male, lying in bed comfortably, in no apparent distress. HEENT: Head: Normocephalic and atraumatic. Eyes: Pupils are equally reactive to light bilaterally. No conjunctival pallor or icterus. NECK: Supple. Normal range of motion. No lymphadenopathy appreciated. LUNGS: Coarse breath sounds bilaterally. HEART: S1 and S2. Regular rate and rhythm. ABDOMEN: Soft and nontender. Bowel sounds present. No rebound. No guarding. RECTAL: Deferred. EXTREMITIES: Pulses present bilaterally. SKIN: Warm, dry, and intact. NEUROLOGIC: A and O x 3. LABORATORY DATA: Labs and radiology have been reviewed. WBC is 6.3, hemoglobin 10.9 and stable, hematocrit of 32.5, platelet count of 164. Creatinine is 8.4. CK is 417. ASSESSMENT AND PLAN: This is a 33-year-old male with end-stage renal disease, on dialysis and anemia. Anemia is likely acute on chronic, most recently from chronic disease. Would benefit at some point from endoscopic workup. We will plan for this as an outpatient. Thank you for the consult. Sukh Altamirano MD/ PhD cc:
[2019-02-10 07:58] LABS: HEMOGLOBIN 9.4 g/dL (12.0-18.0); MEAN CELL VOLUME 84.8 fl (80.0-94.0); MEAN CORPUSCULAR HGB CONC 34.2 g/dL (33.0-37.0); RBC 3.24 Mil/uL (4.40-5.90); RED CELL DISTRIBUTION WIDTH 15.2 % (11.5-14.5); WHITE BLOOD COUNT 5.5 K/uL (4.8-10.8)
[2019-02-10 08:49] LABS: ALBUMIN 3.1 g/dL (3.5-5.0); CALCIUM 7.9 mg/dL (8.4-10.2)
[2019-02-10 08:50] LABS: ALB/GLOB RATIO 1.2 (1.0-2.1)
--- NOTE | 2019-02-10 12:07 | CP.PCM.PN ---
Subjective - Date & Time of Evaluation Date of Evaluation: 02/10/19 Time of Evaluation: 10:00 - Subjective Subjective: Patient seen while on dialysis denies CP no SOB no abd pain no fever Objective - Vital Signs/Intake and Output Vital Signs (last 24 hours): Temp Pulse Resp BP Pulse Ox 98 F 63 20 141/90 96 02/10/19 08:57 02/10/19 08:57 02/10/19 08:57 02/10/19 08:57 02/10/19 08:57 - Medications Medications: Current Medications Carvedilol (Coreg) 12.5 mg PO Q12 [facility] Last Admin: 02/09/19 21:26 Dose: 12.5 mg Clonidine HCl (Catapres) 0.1 mg PO BID [facility] Last Admin: 02/09/19 16:32 Dose: 0.1 mg Epoetin Destin (Procrit) 3,000 unit SC TTS [facility] Last Admin: 02/08/19 13:03 Dose: 3,000 unit Hydralazine HCl (Apresoline) 50 mg PO TID [facility] Last Admin: 02/09/19 16:31 Dose: 50 mg Sevelamer Carbonate (Renvela) 1,600 mg PO TID [facility] Last Admin: 02/10/19 09:52 Dose: Not Given - Labs Labs: 02/10/19 06:00 02/10/19 06:00 PT 13.8 Seconds (9.8-13.1) H 02/03/19 18:17 INR 1.2 02/03/19 18:17 APTT 52.3 Seconds (25.6-37.1) H 02/03/19 18:17 - Constitutional Appears: No Acute Distress - Head Exam Head Exam: NORMAL INSPECTION, NORMOCEPHALIC - Eye Exam Eye Exam: EOMI, Normal appearance, PERRL Pupil Exam: NORMAL ACCOMODATION - ENT Exam ENT Exam: Mucous Membranes Moist, Normal External Ear Exam - Neck Exam Neck Exam: Full ROM. absent: Meningismus - Respiratory Exam Respiratory Exam: NORMAL BREATHING PATTERN. absent: Respiratory Distress - Cardiovascular Exam Cardiovascular Exam: REGULAR RHYTHM, +S1, +S2 Additional comments: right chest HD catheter - GI/Abdominal Exam GI & Abdominal Exam: Soft, Normal Bowel Sounds. absent: Tenderness - Extremities Exam Extremities Exam: Full ROM, Normal Capillary Refill. absent: Calf Tenderness, Pedal Edema Additional comments: Left antecubital area AV shunt , + bruit - Back Exam Back Exam: Full ROM. absent: CVA tenderness (L), CVA tenderness (R) - Neurological Exam Neurological Exam: Alert, Awake, CN II-XII Intact, Normal Gait, Oriented x3 Neuro motor strength exam: Left Upper Extremity: 5, Right Upper Extremity: 5, Left Lower Extremity: 5, Right Lower Extremity: 5 - Psychiatric Exam Psychiatric exam: Normal Affect, Normal Mood - Skin Skin Exam: Dry, Normal Color, Warm Assessment and Plan - Assessment and Plan (Free Text) Plan: 1. ESRD on HD - cont TIW Hemodialysis - awaiting outpt HD placement - Pt has an AV shunt placed on the left arm - jon[facility] in [facility] -cont Renagel 2. Hypertensive Emergency/HTN - initially started on IV antihypertensives bon admission - BP now better controlled - cont Clonidine and Hydralazine, Coreg dose increased to 12.5 mg bid 3. UTI- Enterococcus - initially received IV Vanco after HD , since Enterococcus is sensitive to ampiccilin/PCN, will descalate to Amoxicillin 500 mg q 8 x 3 more days 4. Anemia of Chronic Renal Dis -Epogen and Venofer after HD
--- NOTE | 2019-02-10 12:51 | CP.PCM.PN ---
Subjective - Date & Time of Evaluation Date of Evaluation: 02/10/19 Time of Evaluation: 12:35 - Subjective Subjective: Currently on dialysis. Comfortable supine. Objective - Vital Signs/Intake and Output Vital Signs (last 24 hours): Temp Pulse Resp BP Pulse Ox 98 F 63 20 141/90 96 02/10/19 08:57 02/10/19 08:57 02/10/19 08:57 02/10/19 08:57 02/10/19 08:57 - Medications Medications: Current Medications Carvedilol (Coreg) 12.5 mg PO Q12 [facility] Last Admin: 02/09/19 21:26 Dose: 12.5 mg Clonidine HCl (Catapres) 0.1 mg PO BID [facility] Last Admin: 02/09/19 16:32 Dose: 0.1 mg Doxercalciferol (Hectorol) 4 mcg IV TTS [facility] Epoetin Destin (Procrit) 3,000 unit SC TTS [facility] Last Admin: 02/08/19 13:03 Dose: 3,000 unit Hydralazine HCl (Apresoline) 50 mg PO TID [facility] Last Admin: 02/09/19 16:31 Dose: 50 mg Sevelamer Carbonate (Renvela) 1,600 mg PO TID [facility] Last Admin: 02/10/19 09:52 Dose: Not Given - Labs Labs: 02/10/19 06:00 02/10/19 06:00 PT 13.8 Seconds (9.8-13.1) H 02/03/19 18:17 INR 1.2 02/03/19 18:17 APTT 52.3 Seconds (25.6-37.1) H 02/03/19 18:17 - Constitutional Appears: No Acute Distress - Head Exam Head Exam: ATRAUMATIC, NORMOCEPHALIC - Eye Exam Eye Exam: Normal appearance - ENT Exam ENT Exam: Mucous Membranes Moist - Neck Exam Neck Exam: Normal Inspection - Respiratory Exam Respiratory Exam: NORMAL BREATHING PATTERN Additional comments: Lungs clear - Cardiovascular Exam Cardiovascular Exam: REGULAR RHYTHM - Extremities Exam Additional comments: No edema Assessment and Plan - Assessment and Plan (Free Text) Assessment: ESRD on maint HD HTN Anemia SHPT Plan: Sodium is low whic is most likely dilutional. UF of 3 - 3.5 Kg is planned Hectoral with HD
[2019-02-10] MEDS: Epoetin Alfa 20000 UNIT/ML Inj SC SCH (13:01)
[2019-02-11 07:23] LABS: HEMOGLOBIN 9.2 g/dL (12.0-18.0); MEAN CELL VOLUME 84.5 fl (80.0-94.0); MEAN CORPUSCULAR HEMOGLOBIN 29.1 pg (27.0-31.0); MEAN CORPUSCULAR HGB CONC 34.4 g/dL (33.0-37.0); RBC 3.18 Mil/uL (4.40-5.90); RED CELL DISTRIBUTION WIDTH 15.3 % (11.5-14.5); WHITE BLOOD COUNT 6.4 K/uL (4.8-10.8)
[2019-02-11 07:35] LABS: ALB/GLOB RATIO 1.2 (1.0-2.1); ALBUMIN 3.2 g/dL (3.5-5.0)
--- NOTE | 2019-02-11 12:53 | CP.PCM.PN ---
Subjective - Date & Time of Evaluation Date of Evaluation: 02/11/19 Time of Evaluation: 12:45 - Subjective Subjective: Pt denies any sxs feels fine no CP no SOB no abd pain Awaiting Outpt HD placement Objective - Vital Signs/Intake and Output Vital Signs (last 24 hours): Temp Pulse Resp BP Pulse Ox 97 F L 68 20 122/62 98 02/11/19 08:48 02/11/19 12:35 02/11/19 08:48 02/11/19 12:35 02/11/19 08:48 - Medications Medications: Current Medications Carvedilol (Coreg) 12.5 mg PO Q12 [facility] Last Admin: 02/11/19 09:20 Dose: 12.5 mg Clonidine HCl (Catapres) 0.1 mg PO BID [facility] Last Admin: 02/11/19 09:19 Dose: 0.1 mg Doxercalciferol (Hectorol) 4 mcg IV TTS [facility] Epoetin Destin (Procrit) 3,000 unit SC TTS [facility] Last Admin: 02/10/19 13:01 Dose: 3,000 unit Hydralazine HCl (Apresoline) 50 mg PO TID [facility] Last Admin: 02/11/19 12:35 Dose: 50 mg Sevelamer Carbonate (Renvela) 1,600 mg PO TID [facility] Last Admin: 02/11/19 12:34 Dose: 1,600 mg - Labs Labs: 02/11/19 05:30 02/11/19 05:30 PT 13.8 Seconds (9.8-13.1) H 02/03/19 18:17 INR 1.2 02/03/19 18:17 APTT 52.3 Seconds (25.6-37.1) H 02/03/19 18:17 - Constitutional Appears: No Acute Distress - Head Exam Head Exam: NORMAL INSPECTION, NORMOCEPHALIC - Eye Exam Eye Exam: EOMI, Normal appearance, PERRL Pupil Exam: NORMAL ACCOMODATION - ENT Exam ENT Exam: Mucous Membranes Moist, Normal External Ear Exam - Neck Exam Neck Exam: Full ROM. absent: Meningismus - Respiratory Exam Respiratory Exam: NORMAL BREATHING PATTERN. absent: Respiratory Distress - Cardiovascular Exam Cardiovascular Exam: REGULAR RHYTHM, +S1, +S2 Additional comments: right chest HD catheter - GI/Abdominal Exam GI & Abdominal Exam: Soft, Normal Bowel Sounds. absent: Tenderness - Extremities Exam Extremities Exam: Full ROM, Normal Capillary Refill. absent: Calf Tenderness, Pedal Edema Additional comments: Left antecubital area AV shunt , + bruit - Back Exam Back Exam: Full ROM. absent: CVA tenderness (L), CVA tenderness (R) - Neurological Exam Neurological Exam: Alert, Awake, CN II-XII Intact, Normal Gait, Oriented x3 Neuro motor strength exam: Left Upper Extremity: 5, Right Upper Extremity: 5, Left Lower Extremity: 5, Right Lower Extremity: 5 - Psychiatric Exam Psychiatric exam: Normal Affect, Normal Mood - Skin Skin Exam: Dry, Normal Color, Warm Assessment and Plan - Assessment and Plan (Free Text) Plan: 1. ESRD on HD - cont TIW Hemodialysis - awaiting outpt HD placement - Pt has an AV shunt placed on the left arm - done in [facility] -cont Renagel 2. Hypertensive Emergency/HTN - initially started on IV antihypertensives on admission - BP now better controlled - cont Clonidine and Hydralazine, Coreg dose increased to 12.5 mg bid 3. UTI- Enterococcus - initially received IV Vanco after HD , since Enterococcus is sensitive to ampicillin/PCN, will descalate to Amoxicillin 500 mg q 8 x 3 more days 4. Anemia of Chronic Renal Dis -Epogen and Venofer after HD
--- NOTE | 2019-02-12 12:41 | CP.PCM.PN ---
Subjective - Date & Time of Evaluation Date of Evaluation: 02/12/19 Time of Evaluation: 12:30 - Subjective Subjective: Patient seen and examined bedside . All chart and clinical data reviewed . care resumed Feeling well. Hemodynamically stable, afebrile No acute issues overnight Denies any CP, SOB For HD in AM Objective - Vital Signs/Intake and Output Vital Signs (last 24 hours): Temp Pulse Resp BP Pulse Ox 97.6 F 61 18 140/79 98 02/12/19 08:37 02/12/19 08:43 02/12/19 08:37 02/12/19 08:43 02/12/19 08:37 - Medications Medications: Current Medications Amoxicillin (Amoxil 500 Mg Cap) 500 mg PO Q8 [facility]; Protocol Stop: 02/14/19 17:01 Last Admin: 02/12/19 08:42 Dose: 500 mg Carvedilol (Coreg) 12.5 mg PO Q12 [facility] Last Admin: 02/12/19 08:43 Dose: 12.5 mg Clonidine HCl (Catapres) 0.1 mg PO BID [facility] Last Admin: 02/12/19 08:43 Dose: 0.1 mg Doxercalciferol (Hectorol) 4 mcg IV TTS [facility] Epoetin Destin (Procrit) 3,000 unit SC TTS [facility] Last Admin: 02/10/19 13:01 Dose: 3,000 unit Hydralazine HCl (Apresoline) 50 mg PO TID [facility] Last Admin: 02/12/19 08:42 Dose: 50 mg Sevelamer Carbonate (Renvela) 1,600 mg PO TID [facility] Last Admin: 02/12/19 08:43 Dose: 1,600 mg - Labs Labs: 02/11/19 05:30 02/11/19 05:30 PT 13.8 Seconds (9.8-13.1) H 02/03/19 18:17 INR 1.2 02/03/19 18:17 APTT 52.3 Seconds (25.6-37.1) H 02/03/19 18:17 - Constitutional Appears: Non-toxic, No Acute Distress - Head Exam Head Exam: ATRAUMATIC, NORMAL INSPECTION, NORMOCEPHALIC - Eye Exam Eye Exam: EOMI, Normal appearance, PERRL Pupil Exam: NORMAL ACCOMODATION - ENT Exam ENT Exam: Mucous Membranes Moist, Normal Exam - Neck Exam Neck Exam: Full ROM, Normal Inspection - Respiratory Exam Respiratory Exam: Clear to Ausculation Bilateral, NORMAL BREATHING PATTERN. absent: Rales, Rhonchi, Wheezes - Cardiovascular Exam Cardiovascular Exam: REGULAR RHYTHM, RRR, +S1, +S2. absent: JVD - GI/Abdominal Exam GI & Abdominal Exam: Soft, Normal Bowel Sounds. absent: Distended, Guarding, Tenderness, Rebound - Rectal Exam Rectal Exam: Deferred - Extremities Exam Extremities Exam: Full ROM, Normal Capillary Refill. absent: Pedal Edema - Back Exam Back Exam: NORMAL INSPECTION - Neurological Exam Neurological Exam: Alert, Awake, CN II-XII Intact, Oriented x3 - Psychiatric Exam Psychiatric exam: Normal Affect - Skin Skin Exam: Dry, Normal Color, Warm Assessment and Plan - Assessment and Plan (Free Text) Assessment: 33 y/o male with PMH ESRD was admitted in our hospital Aug 2018 and November 2018 and was started on HD.Patient signed AMA both times . This time he was off HD for 2 months.He to ER with LE pain , swelling and abdominal fullness. in ER found to have BP 223/136 BNP 518507 BUN/Cr 175/17.2 HCO3 9 Hgb 8.8 Patient admitted for Hypertensive urgency, Metabolic acidosis secondary to ESRD , Fluid overload and anemia of chronic disease He was started back on HD and BP meds and at present doing well, waiting for HD spot in community 1.Hypertensive urgency Better controlled Continue Clonidine, Norvasc , Coreg 2. ESRD with fluid overload and metabolic acidosis continue HD as scheduled Nephro on board Waiting for HD spot in community Continue Renagel 3.Anemia of chronic disease epogen with HD 4. UTI secondary to Enterococcus Faecalis On Amoxicillin PO
--- NOTE | 2019-02-12 14:44 | CP.PCM.PN ---
Subjective - Date & Time of Evaluation Date of Evaluation: 02/05/19 Time of Evaluation: 01:25 - Subjective Subjective: Feels better. 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 Objective - Vital Signs/Intake and Output Vital Signs (last 24 hours): Temp Pulse Resp BP Pulse Ox 97.6 F 63 18 131/82 98 02/12/19 08:37 02/12/19 12:46 02/12/19 08:37 02/12/19 12:46 02/12/19 08:37 - Medications Medications: Current Medications Amoxicillin (Amoxil 500 Mg Cap) 500 mg PO Q8 [facility]; Protocol Stop: 02/14/19 17:01 Last Admin: 02/12/19 08:42 Dose: 500 mg Carvedilol (Coreg) 12.5 mg PO Q12 [facility] Last Admin: 02/12/19 08:43 Dose: 12.5 mg Clonidine HCl (Catapres) 0.1 mg PO BID [facility] Last Admin: 02/12/19 08:43 Dose: 0.1 mg Doxercalciferol (Hectorol) 4 mcg IV TTS [facility] Epoetin Destin (Procrit) 3,000 unit SC TTS [facility] Last Admin: 02/10/19 13:01 Dose: 3,000 unit Hydralazine HCl (Apresoline) 50 mg PO TID [facility] Last Admin: 02/12/19 12:46 Dose: 50 mg Sevelamer Carbonate (Renvela) 1,600 mg PO TID [facility] Last Admin: 02/12/19 12:46 Dose: 1,600 mg - Labs Labs: 02/11/19 05:30 02/11/19 05:30 PT 13.8 Seconds (9.8-13.1) H 02/03/19 18:17 INR 1.2 02/03/19 18:17 APTT 52.3 Seconds (25.6-37.1) H 02/03/19 18:17 - Constitutional Appears: No Acute Distress - Head Exam Head Exam: ATRAUMATIC, NORMOCEPHALIC - Eye Exam Eye Exam: Normal appearance - ENT Exam ENT Exam: Mucous Membranes Moist - Neck Exam Additional comments: No jugular venous distension - Cardiovascular Exam Cardiovascular Exam: REGULAR RHYTHM - Extremities Exam Additional comments: No edema Assessment and Plan - Assessment and Plan (Free Text) Assessment: ESRD on HD BP now controlled Hb improving Plan: For dialysis tomorrow. Labs in am
[2019-02-13 06:11] LABS: HEMOGLOBIN 8.5 g/dL (12.0-18.0); MEAN CELL VOLUME 85.1 fl (80.0-94.0); MEAN CORPUSCULAR HEMOGLOBIN 28.8 pg (27.0-31.0); MEAN CORPUSCULAR HGB CONC 33.9 g/dL (33.0-37.0); RBC 2.94 Mil/uL (4.40-5.90); RED CELL DISTRIBUTION WIDTH 15.6 % (11.5-14.5)
[2019-02-13 06:27] LABS: ALB/GLOB RATIO 1.1 (1.0-2.1); ALBUMIN 3.2 g/dL (3.5-5.0)
[2019-02-13] MEDS: Epoetin Alfa 20000 UNIT/ML Inj SC SCH (09:19)
[2019-02-13] MEDS: Doxercalciferol 4 mcg/2 ml Inj IV SCH (09:21)
--- NOTE | 2019-02-13 09:53 | CP.PCM.PN ---
Subjective - Date & Time of Evaluation Date of Evaluation: 02/13/19 Time of Evaluation: 09:53 - Subjective Subjective: Pt seen and examined bedside while receiving HD, no new complaints. Admits to ambulating and eating without difficulty. Denies fever, chills, SOB, chest pain and dizziness. Objective - Vital Signs/Intake and Output Vital Signs (last 24 hours): Temp Pulse Resp BP Pulse Ox 97.8 F 64 20 138/80 98 02/13/19 07:40 02/13/19 07:40 02/13/19 07:40 02/13/19 07:40 02/13/19 07:40 - Medications Medications: Current Medications Amoxicillin (Amoxil 500 Mg Cap) 500 mg PO Q8 [facility]; Protocol Stop: 02/14/19 17:01 Last Admin: 02/13/19 00:47 Dose: 500 mg Carvedilol (Coreg) 12.5 mg PO Q12 [facility] Last Admin: 02/12/19 20:39 Dose: 12.5 mg Clonidine HCl (Catapres) 0.1 mg PO BID [facility] Last Admin: 02/12/19 16:52 Dose: Not Given Doxercalciferol (Hectorol) 4 mcg IV TTS [facility] Last Admin: 02/13/19 09:21 Dose: 4 mcg Epoetin Destin (Procrit) 3,000 unit SC TTS [facility] Last Admin: 02/13/19 09:19 Dose: 3,000 unit Hydralazine HCl (Apresoline) 50 mg PO TID [facility] Last Admin: 02/12/19 16:51 Dose: Not Given Sevelamer Carbonate (Renvela) 1,600 mg PO TID [facility] Last Admin: 02/12/19 17:03 Dose: 1,600 mg - Labs Labs: 02/13/19 05:25 02/13/19 05:25 PT 13.8 Seconds (9.8-13.1) H 02/03/19 18:17 INR 1.2 02/03/19 18:17 APTT 52.3 Seconds (25.6-37.1) H 02/03/19 18:17 - Constitutional Appears: Non-toxic, No Acute Distress - Head Exam Head Exam: NORMAL INSPECTION - Eye Exam Eye Exam: Normal appearance - ENT Exam ENT Exam: Mucous Membranes Moist - Respiratory Exam Respiratory Exam: NORMAL BREATHING PATTERN. absent: Respiratory Distress - Cardiovascular Exam Cardiovascular Exam: REGULAR RHYTHM - GI/Abdominal Exam GI & Abdominal Exam: Soft. absent: Tenderness - Extremities Exam Extremities Exam: absent: Pedal Edema - Neurological Exam Neurological Exam: Alert, Awake, Normal Gait - Psychiatric Exam Psychiatric exam: Normal Affect, Normal Mood - Skin Skin Exam: Dry, Intact, Normal Color, Warm Assessment and Plan - Assessment and Plan (Free Text) Assessment: 32-year-old male with pmhx of HTN and ESRF presents to ED with a three-day duration of abdominal and lower extremity bloating. Stool occult positive in ED, GI on board, awaiting recommendations. HD 02/04, 02/05, 02/06; 02/08 -, Tue schedule Plan: Hypertensive urgency -Most likely due to Volume overload due to ESRF -ECHO (02/06): EF 50-55%, pericardial effusion small-med (Nov 2018 moderate-large) -BP on presentation: 233/136, today's range 138-142/80-82 -Carvedilol 12.5 (increased today from 6.25) mg BID, hydralazine 50 mg TID (increased from 25mg yesterday), clonidine 0.1 mg BID -Monitor BP, monitor for end-organ damage, vitals ESRF -Currently receiving HD: 02/04, 02/05, 02/06, 02/08 -, , Tue schedule -BUN/Cr 73/10.7 (admission 188/17.2) -Dr Perdomo (nephrology) consulted, input appreciated -ProBNP > 175,000 most likely due to ESRF -Sevelamer Carbonate 1600mg PO TID, Phos 5.1 (02/08) -HD cath - Right IJ chest, Nov 2018 [facility] -Renal diet -Metabolic acidosis sec to renal insufficiency -Needs outpatient HD placement on discharge -Hepatitis B not immune, Hep C negative Anemia -Likely secondary to ESRD -Stool occult positive in ED -s/p 1 PRBC (02/05) -Hg/Hct 8.5/25 (8.8/26.5 admission, baseline) -Monitor CBC -Increase Epogen dose if needed as per nephrology (current 3000) -GI consulted, input and recs appreciated -Vit B12 (721), Folate (>20) wnl, Iron 103, TIBC 230, TSH 3.29 UTI -G+ cocci, urine WBC 49, RBC 81, trace esterase -Afebrile -Vanco 750mg s/p dialysis 02/05 -Vanco 500mg s/p dialysis 02/06 DVT Prevention -SCD
--- NOTE | 2019-02-13 14:05 | CP.PCM.PN ---
Subjective - Date & Time of Evaluation Date of Evaluation: 02/13/19 Time of Evaluation: 01:00 - Subjective Subjective: No complaints Objective - Vital Signs/Intake and Output Vital Signs (last 24 hours): Temp Pulse Resp BP Pulse Ox 97.8 F 56 L 20 156/86 H 98 02/13/19 07:40 02/13/19 12:39 02/13/19 07:40 02/13/19 12:39 02/13/19 07:40 - Medications Medications: Current Medications Amoxicillin (Amoxil 500 Mg Cap) 500 mg PO Q8 [facility]; Protocol Stop: 02/14/19 17:01 Last Admin: 02/13/19 09:58 Dose: 500 mg Carvedilol (Coreg) 12.5 mg PO Q12 [facility] Last Admin: 02/13/19 09:55 Dose: Not Given Clonidine HCl (Catapres) 0.1 mg PO BID [facility] Last Admin: 02/13/19 09:54 Dose: Not Given Doxercalciferol (Hectorol) 4 mcg IV TTS [facility] Last Admin: 02/13/19 09:21 Dose: 4 mcg Epoetin Destin (Procrit) 3,000 unit SC TTS [facility] Last Admin: 02/13/19 09:19 Dose: 3,000 unit Hydralazine HCl (Apresoline) 50 mg PO TID [facility] Last Admin: 02/13/19 12:39 Dose: 50 mg Sevelamer Carbonate (Renvela) 1,600 mg PO TID [facility] Last Admin: 02/13/19 12:35 Dose: 1,600 mg - Labs Labs: 02/13/19 05:25 02/13/19 05:25 PT 13.8 Seconds (9.8-13.1) H 02/03/19 18:17 INR 1.2 02/03/19 18:17 APTT 52.3 Seconds (25.6-37.1) H 02/03/19 18:17 - Constitutional Appears: No Acute Distress - Head Exam Head Exam: ATRAUMATIC, NORMOCEPHALIC - Eye Exam Eye Exam: Normal appearance - ENT Exam ENT Exam: Mucous Membranes Moist - Neck Exam Additional comments: JVD flat while sitting up - Respiratory Exam Respiratory Exam: NORMAL BREATHING PATTERN Additional comments: Lungs clear - Cardiovascular Exam Cardiovascular Exam: REGULAR RHYTHM - GI/Abdominal Exam GI & Abdominal Exam: Soft - Extremities Exam Additional comments: No edema Assessment and Plan - Assessment and Plan (Free Text) Assessment: ESRD on HD. Dialysis tolerated well today Predialysis Sod remains low. Clinically appears euvolumic. Attempt more fluid removal BP is controlled Plan: Hemodialysis per schedule . Increase Epogen dose
[2019-02-13] MEDS ORDERED: Epoetin Alfa 4000 UNIT/ML Inj IV ONE (14:08)
[2019-02-14 07:07] LABS: HEMOGLOBIN 8.2 g/dL (12.0-18.0); MEAN CELL VOLUME 85.3 fl (80.0-94.0); MEAN CORPUSCULAR HEMOGLOBIN 28.4 pg (27.0-31.0); MEAN CORPUSCULAR HGB CONC 33.3 g/dL (33.0-37.0); RBC 2.87 Mil/uL (4.40-5.90); RED CELL DISTRIBUTION WIDTH 15.2 % (11.5-14.5); WHITE BLOOD COUNT 5.2 K/uL (4.8-10.8)
[2019-02-14 07:28] LABS: ALB/GLOB RATIO 1.2 (1.0-2.1); ALBUMIN 3.3 g/dL (3.5-5.0); CALCIUM 7.9 mg/dL (8.4-10.2)
--- NOTE | 2019-02-14 11:31 | CP.PCM.PN ---
Subjective - Date & Time of Evaluation Date of Evaluation: 02/14/19 Time of Evaluation: 11:30 - Subjective Subjective: Pt seen and examined bedside while receiving HD, no new complaints. Admits to ambulating and eating without difficulty. Denies fever, chills, SOB, chest pain and dizziness. HD tomorrow. Objective - Vital Signs/Intake and Output Vital Signs (last 24 hours): Temp Pulse Resp BP Pulse Ox 97.7 F 64 20 156/84 H 97 02/14/19 07:49 02/14/19 10:02 02/14/19 07:49 02/14/19 10:02 02/14/19 07:49 - Medications Medications: Current Medications Amoxicillin (Amoxil 500 Mg Cap) 500 mg PO Q8 [facility]; Protocol Stop: 02/14/19 17:01 Last Admin: 02/14/19 10:01 Dose: 500 mg Carvedilol (Coreg) 12.5 mg PO Q12 [facility] Last Admin: 02/14/19 10:02 Dose: 12.5 mg Clonidine HCl (Catapres) 0.1 mg PO BID [facility] Last Admin: 02/14/19 10:01 Dose: 0.1 mg Doxercalciferol (Hectorol) 4 mcg IV TTS [facility] Last Admin: 02/13/19 09:21 Dose: 4 mcg Hydralazine HCl (Apresoline) 50 mg PO TID [facility] Last Admin: 02/14/19 10:01 Dose: 50 mg Sevelamer Carbonate (Renvela) 1,600 mg PO TID [facility] Last Admin: 02/14/19 10:01 Dose: 1,600 mg - Labs Labs: 02/14/19 06:05 02/14/19 06:05 PT 13.8 Seconds (9.8-13.1) H 02/03/19 18:17 INR 1.2 02/03/19 18:17 APTT 52.3 Seconds (25.6-37.1) H 02/03/19 18:17 - Constitutional Appears: Non-toxic, No Acute Distress - Head Exam Head Exam: NORMAL INSPECTION - Eye Exam Eye Exam: Normal appearance - Respiratory Exam Respiratory Exam: NORMAL BREATHING PATTERN. absent: Respiratory Distress - Cardiovascular Exam Cardiovascular Exam: REGULAR RHYTHM - GI/Abdominal Exam GI & Abdominal Exam: Soft. absent: Tenderness - Extremities Exam Extremities Exam: Normal Inspection - Neurological Exam Neurological Exam: Alert, Awake, Oriented x3 - Psychiatric Exam Psychiatric exam: Normal Affect, Normal Mood - Skin Skin Exam: Dry, Intact, Normal Color, Warm Assessment and Plan - Assessment and Plan (Free Text) Assessment: 32-year-old male with pmhx of HTN and ESRF presents to ED with a three-day duration of abdominal and lower extremity bloating. Stool occult positive in ED, GI on board, awaiting recommendations. HD 02/04, 02/05, 02/06; 02/08 -, Tue schedule Awaiting placement in [facility]. Plan: Hypertensive urgency -Most likely due to Volume overload due to ESRF -ECHO (02/06): EF 50-55%, pericardial effusion small-med (Nov 2018 moderate-large) -BP on presentation: 233/136, today's range 150's/80's -Carvedilol 12.5 mg BID, hydralazine 50 mg TID (increased from 25mg yesterday), clonidine 0.1 mg BID -Monitor BP, monitor for end-organ damage, vitals ESRF -Currently receiving HD: 02/04, 02/05, 02/06, 02/08 -, , Sat schedule -BUN/Cr 54/9.0 (admission 188/17.2) -Dr Perdomo (nephrology) consulted, input appreciated -ProBNP > 175,000 most likely due to ESRF -Sevelamer Carbonate 1600mg PO TID, Phos 6.9 (02/13) -HD cath - Right IJ chest, Nov 2018 [facility] -Renal diet -Metabolic acidosis sec to renal insufficiency -Needs outpatient HD placement on discharge -Hepatitis B not immune, Hep C negative Anemia -Likely secondary to ESRD -Stool occult positive in ED -s/p 1 PRBC (02/05) -Hg/Hct 8.2/24.5 (8.8/26.5 admission, baseline) -Monitor CBC -Increase Epogen dose if needed as per nephrology (current 3000) -GI consulted, input and recs appreciated -Vit B12 (721), Folate (>20) wnl, Iron 103, TIBC 230, TSH 3.29 UTI -Enterococcus is sensitive to ampicillin/PCN -G+ cocci, urine WBC 49, RBC 81, trace esterase -Afebrile -Vanco 750mg s/p dialysis 02/05 -Vanco 500mg s/p dialysis 02/06 -Amoxicillin 500 mg q 8 x 3 days (02/11-02/14)
[2019-02-15 06:46] LABS: HEMOGLOBIN 8.6 g/dL (12.0-18.0); MEAN CORPUSCULAR HEMOGLOBIN 28.8 pg (27.0-31.0); MEAN CORPUSCULAR HGB CONC 33.9 g/dL (33.0-37.0); RBC 2.97 Mil/uL (4.40-5.90); RED CELL DISTRIBUTION WIDTH 15.7 % (11.5-14.5); WHITE BLOOD COUNT 4.8 K/uL (4.8-10.8)
[2019-02-15 07:15] LABS: ALB/GLOB RATIO 1.3 (1.0-2.1); ALBUMIN 3.5 g/dL (3.5-5.0); CALCIUM 8.3 mg/dL (8.4-10.2)
[2019-02-15] MEDS: Doxercalciferol 4 mcg/2 ml Inj IV SCH (11:13)
--- NOTE | 2019-02-15 11:51 | CP.PCM.PN ---
Subjective - Date & Time of Evaluation Date of Evaluation: 02/12/19 Time of Evaluation: 16:00 - Subjective Subjective: no overnight events Objective - Vital Signs/Intake and Output Vital Signs (last 24 hours): Temp Pulse Resp BP Pulse Ox 97.7 F 64 20 159/84 H 95 02/15/19 08:34 02/15/19 08:49 02/15/19 08:34 02/15/19 08:49 02/15/19 08:34 - Medications Medications: Current Medications Carvedilol (Coreg) 12.5 mg PO Q12 [facility] Last Admin: 02/15/19 08:49 Dose: 12.5 mg Clonidine HCl (Catapres) 0.1 mg PO BID [facility] Last Admin: 02/15/19 08:48 Dose: 0.1 mg Doxercalciferol (Hectorol) 4 mcg IV TTS [facility] Last Admin: 02/15/19 11:13 Dose: 4 mcg Hydralazine HCl (Apresoline) 50 mg PO TID [facility] Last Admin: 02/15/19 08:48 Dose: 50 mg Sevelamer Carbonate (Renvela) 1,600 mg PO TID [facility] Last Admin: 02/15/19 08:49 Dose: 1,600 mg - Labs Labs: 02/15/19 05:40 02/15/19 05:40 PT 13.8 Seconds (9.8-13.1) H 02/03/19 18:17 INR 1.2 02/03/19 18:17 APTT 52.3 Seconds (25.6-37.1) H 02/03/19 18:17 - Neck Exam Neck Exam: Normal Inspection - Respiratory Exam Respiratory Exam: Clear to Ausculation Bilateral, NORMAL BREATHING PATTERN - Cardiovascular Exam Cardiovascular Exam: REGULAR RHYTHM - GI/Abdominal Exam GI & Abdominal Exam: Soft, Normal Bowel Sounds Assessment and Plan - Assessment and Plan (Free Text) Assessment: 33 yo male with anemia likely secondary to chroinc kidney disease outpatient endoscopic wok up
--- NOTE | 2019-02-15 12:13 | CP.PCM.PN ---
Subjective - Date & Time of Evaluation Date of Evaluation: 02/15/19 Time of Evaluation: 12:13 - Subjective Subjective: Pt seen and examined bedside while receiving HD, no new complaints. Admits to ambulating and eating without difficulty. Denies fever, chills, SOB, chest pain and dizziness. HD today. Objective - Vital Signs/Intake and Output Vital Signs (last 24 hours): Temp Pulse Resp BP Pulse Ox 97.7 F 64 20 159/84 H 95 02/15/19 08:34 02/15/19 08:49 02/15/19 08:34 02/15/19 08:49 02/15/19 08:34 - Medications Medications: Current Medications Carvedilol (Coreg) 12.5 mg PO Q12 [facility] Last Admin: 02/15/19 08:49 Dose: 12.5 mg Clonidine HCl (Catapres) 0.1 mg PO BID [facility] Last Admin: 02/15/19 08:48 Dose: 0.1 mg Doxercalciferol (Hectorol) 4 mcg IV TTS [facility] Last Admin: 02/15/19 11:13 Dose: 4 mcg Hydralazine HCl (Apresoline) 50 mg PO TID [facility] Last Admin: 02/15/19 08:48 Dose: 50 mg Sevelamer Carbonate (Renvela) 1,600 mg PO TID [facility] Last Admin: 02/15/19 08:49 Dose: 1,600 mg - Labs Labs: 02/15/19 05:40 02/15/19 05:40 PT 13.8 Seconds (9.8-13.1) H 02/03/19 18:17 INR 1.2 02/03/19 18:17 APTT 52.3 Seconds (25.6-37.1) H 02/03/19 18:17 - Constitutional Appears: Non-toxic, No Acute Distress - Head Exam Head Exam: NORMAL INSPECTION - ENT Exam ENT Exam: Mucous Membranes Moist - Respiratory Exam Respiratory Exam: NORMAL BREATHING PATTERN. absent: Respiratory Distress Additional comments: HD cath - Right IJ chest, Nov 2018 [facility] - Cardiovascular Exam Cardiovascular Exam: REGULAR RHYTHM - GI/Abdominal Exam GI & Abdominal Exam: absent: Tenderness - Neurological Exam Neurological Exam: Alert, Awake, Normal Gait, Oriented x3 - Psychiatric Exam Psychiatric exam: Normal Affect, Normal Mood - Skin Skin Exam: Dry, Intact, Normal Color, Warm Assessment and Plan - Assessment and Plan (Free Text) Assessment: 32-year-old male with pmhx of HTN and ESRF presents to ED with a three-day duration of abdominal and lower extremity bloating. Stool occult positive in ED, GI on board, awaiting recommendations. HD 02/04, 02/05, 02/06; 02/08 -, , Sat schedule Awaiting placement in community. Plan: Hypertensive urgency -Most likely due to Volume overload due to ESRF -ECHO (02/06): EF 50-55%, pericardial effusion small-med (Nov 2018 moderate-large) -BP on presentation: 233/136, today's range 150's/80's -Carvedilol 12.5 mg BID, hydralazine 50 mg TID (increased from 25mg yesterday), clonidine 0.1 mg BID -Monitor BP, monitor for end-organ damage, vitals ESRF -Currently receiving HD: 02/04, 02/05, 02/06, 02/08 -, , Sat schedule -BUN/Cr 71/10.7 (admission 188/17.2) -Dr Perdomo (nephrology) consulted, input appreciated -ProBNP > 175,000 most likely due to ESRF -Sevelamer Carbonate 1600mg PO TID, Phos 6.9 (02/13) -HD cath - Right IJ chest, Nov 2018 [facility] -Renal diet -Metabolic acidosis sec to renal insufficiency -Needs outpatient HD placement on discharge -Hepatitis B not immune, Hep C negative Anemia -Likely secondary to ESRD -Stool occult positive in ED -s/p 1 PRBC (02/05) -Hg/Hct 8.6/25.3 (8.8/26.5 admission, baseline) -Monitor CBC -Increase Epogen dose if needed as per nephrology (current 3000) -GI consulted, input and recs appreciated - endoscopy outpatient -Vit B12 (721), Folate (>20) wnl, Iron 103, TIBC 230, TSH 3.29 UTI -Enterococcus is sensitive to ampicillin/PCN -G+ cocci, urine WBC 49, RBC 81, trace esterase -Afebrile -Vanco 750mg s/p dialysis 02/05 -Vanco 500mg s/p dialysis 02/06 -Amoxicillin 500 mg q 8 x 3 days (02/11-02/14)
--- NOTE | 2019-02-15 13:23 | CP.PCM.PN ---
Subjective - Date & Time of Evaluation Date of Evaluation: 02/15/19 Time of Evaluation: 01:00 - Subjective Subjective: Feels better. No c/o dizziness, SOB. Eating better Objective - Vital Signs/Intake and Output Vital Signs (last 24 hours): Temp Pulse Resp BP Pulse Ox 97.7 F 61 20 150/93 H 95 02/15/19 08:34 02/15/19 12:49 02/15/19 08:34 02/15/19 12:49 02/15/19 08:34 - Medications Medications: Current Medications Carvedilol (Coreg) 12.5 mg PO Q12 [facility] Last Admin: 02/15/19 08:49 Dose: 12.5 mg Clonidine HCl (Catapres) 0.1 mg PO BID [facility] Last Admin: 02/15/19 08:48 Dose: 0.1 mg Doxercalciferol (Hectorol) 4 mcg IV TTS [facility] Last Admin: 02/15/19 11:13 Dose: 4 mcg Hydralazine HCl (Apresoline) 50 mg PO TID [facility] Last Admin: 02/15/19 12:49 Dose: 50 mg Sevelamer Carbonate (Renvela) 1,600 mg PO TID [facility] Last Admin: 02/15/19 12:48 Dose: 1,600 mg - Labs Labs: 02/15/19 05:40 02/15/19 05:40 PT 13.8 Seconds (9.8-13.1) H 02/03/19 18:17 INR 1.2 02/03/19 18:17 APTT 52.3 Seconds (25.6-37.1) H 02/03/19 18:17 - Constitutional Appears: No Acute Distress - Head Exam Head Exam: ATRAUMATIC, NORMOCEPHALIC - Eye Exam Eye Exam: Normal appearance - ENT Exam ENT Exam: Mucous Membranes Moist - Neck Exam Additional comments: Neck supple - Respiratory Exam Respiratory Exam: NORMAL BREATHING PATTERN Additional comments: Lungs clear - Cardiovascular Exam Cardiovascular Exam: REGULAR RHYTHM - Extremities Exam Additional comments: No edema Assessment and Plan - Assessment and Plan (Free Text) Assessment: ESRD on maintenance HD HTN Anemia Epogen dose was increased Hyponatremia persists. Most likey dilutional Plan: Continue HD per schedule Cortisol level Lipid profile
[2019-02-15 15:39] LABS: IRON 72 ug/dL (49-181)
[2019-02-15 15:48] LABS: % IRON SATURATION 26 % (20-55); TOTAL IRON BINDING CAPACITY 281 ug/dL (250-450)
[2019-02-16 06:25] LABS: HEMOGLOBIN 8.6 g/dL (12.0-18.0); MEAN CELL VOLUME 85.8 fl (80.0-94.0); MEAN CORPUSCULAR HGB CONC 33.8 g/dL (33.0-37.0); RBC 2.98 Mil/uL (4.40-5.90); RED CELL DISTRIBUTION WIDTH 15.4 % (11.5-14.5); WHITE BLOOD COUNT 5.5 K/uL (4.8-10.8)
[2019-02-16 06:41] LABS: ALB/GLOB RATIO 1.2 (1.0-2.1); ALBUMIN 3.4 g/dL (3.5-5.0); CALCIUM 8.4 mg/dL (8.4-10.2)
--- NOTE | 2019-02-16 11:28 | CP.PCM.PN ---
<Roma Denny - Last Filed: 02/16/19 11:34> Subjective - Date & Time of Evaluation Date of Evaluation: 02/16/19 Time of Evaluation: 11:28 - Subjective Subjective: Pt seen and examined bedside while receiving HD, no new complaints. Admits to ambulating and eating without difficulty. Denies fever, chills, SOB, chest pain and dizziness. HD tomorrow. Objective - Vital Signs/Intake and Output Vital Signs (last 24 hours): Temp Pulse Resp BP Pulse Ox 97.9 F 64 20 143/80 98 02/16/19 08:01 02/16/19 09:18 02/16/19 08:01 02/16/19 09:18 02/16/19 08:01 - Medications Medications: Current Medications Carvedilol (Coreg) 12.5 mg PO Q12 [facility] Last Admin: 02/16/19 09:18 Dose: 12.5 mg Clonidine HCl (Catapres) 0.1 mg PO BID [facility] Last Admin: 02/16/19 09:18 Dose: 0.1 mg Doxercalciferol (Hectorol) 4 mcg IV TTS [facility] Last Admin: 02/15/19 11:13 Dose: 4 mcg Hydralazine HCl (Apresoline) 50 mg PO TID [facility] Last Admin: 02/16/19 09:17 Dose: 50 mg Sevelamer Carbonate (Renvela) 1,600 mg PO TID [facility] Last Admin: 02/16/19 09:17 Dose: 1,600 mg - Labs Labs: 02/16/19 05:35 02/16/19 05:35 PT 13.8 Seconds (9.8-13.1) H 02/03/19 18:17 INR 1.2 02/03/19 18:17 APTT 52.3 Seconds (25.6-37.1) H 02/03/19 18:17 - Constitutional Appears: Non-toxic, No Acute Distress - Eye Exam Eye Exam: Normal appearance - ENT Exam ENT Exam: Mucous Membranes Moist - Respiratory Exam Respiratory Exam: Clear to Ausculation Bilateral, NORMAL BREATHING PATTERN. absent: Respiratory Distress - Cardiovascular Exam Cardiovascular Exam: REGULAR RHYTHM - GI/Abdominal Exam GI & Abdominal Exam: Soft. absent: Tenderness - Extremities Exam Extremities Exam: Normal Inspection - Neurological Exam Neurological Exam: Alert, Awake, Normal Gait - Psychiatric Exam Psychiatric exam: Normal Affect, Normal Mood - Skin Skin Exam: Dry, Intact, Normal Color, Warm Assessment and Plan - Assessment and Plan (Free Text) Assessment: 32-year-old male with pmhx of HTN and ESRF presents to ED with a three-day duration of abdominal and lower extremity bloating. Stool occult positive in ED, GI on board, awaiting recommendations. HD 02/04, 02/05, 02/06; 02/08 -, , Sat schedule Awaiting placement in [facility]. Plan: Hypertensive urgency -Most likely due to Volume overload due to ESRF -ECHO (02/06): EF 50-55%, pericardial effusion small-med (Nov 2018 moderate-large) -BP on presentation: 233/136, today's range 140's/80's -Carvedilol 12.5 mg BID, hydralazine 50 mg TID, clonidine 0.1 mg BID -Monitor BP, monitor for end-organ damage, vitals ESRF -Currently receiving HD: 02/04, 02/05, 02/06, 02/08 -[place], [place], Sat schedule -BUN/Cr 47/8.4 (admission 188/17.2) -Dr Perdomo (nephrology) consulted, input appreciated -ProBNP > 175,000 most likely due to ESRF -Sevelamer Carbonate 1600mg PO TID, Phos 6.9 (02/13) -Hecterol 4mg TTS -HD cath - Right IJ chest, Nov 2018 [facility] -Renal diet -Metabolic acidosis sec to renal insufficiency -Hepatitis B not immune, Hep C negative -Awaiting outpatient HD placement Anemia -Likely secondary to ESRD -Stool occult positive in ED -s/p 1 PRBC (02/05) -Hg/Hct 8.6/25.6 (8.8/26.5 admission, baseline) -Monitor CBC -Increase Epogen dose if needed as per nephrology (current 3000) -GI consulted, input and recs appreciated - endoscopy outpatient -Vit B12 (721), Folate (>20) wnl, Iron 103, TIBC 230, TSH 3.29 UTI -Enterococcus is sensitive to ampicillin/PCN -G+ cocci, urine WBC 49, RBC 81, trace esterase -Afebrile -Vanco 750mg s/p dialysis 02/05 -Vanco 500mg s/p dialysis 02/06 -Amoxicillin 500 mg q 8 x 3 days (02/11-02/14) <Eden Mai Denise - Last Filed: 02/16/19 18:29> Objective - Vital Signs/Intake and Output Vital Signs (last 24 hours): Temp Pulse Resp BP Pulse Ox 97.6 F 63 18 146/84 98 02/16/19 16:24 02/16/19 16:24 02/16/19 16:24 02/16/19 17:23 02/16/19 16:24 - Medications Medications: Current Medications Carvedilol (Coreg) 12.5 mg PO Q12 [facility] Last Admin: 02/16/19 09:18 Dose: 12.5 mg Clonidine HCl (Catapres) 0.1 mg PO BID [facility] Last Admin: 02/16/19 17:23 Dose: 0.1 mg Doxercalciferol (Hectorol) 4 mcg IV TTS [facility] Last Admin: 02/15/19 11:13 Dose: 4 mcg Hydralazine HCl (Apresoline) 50 mg PO TID [facility] Last Admin: 02/16/19 17:23 Dose: 50 mg Iron Sucrose 100 mg/ Sodium (Chloride) 105 mls @ 105 mls/hr IVPB TTS [facility] Stop: 02/27/19 09:59 Sevelamer Carbonate (Renvela) 1,600 mg PO TID [facility] Last Admin: 02/16/19 17:21 Dose: 1,600 mg - Labs Labs: 02/16/19 05:35 02/16/19 05:35 PT 13.8 Seconds (9.8-13.1) H 02/03/19 18:17 INR 1.2 02/03/19 18:17 APTT 52.3 Seconds (25.6-37.1) H 02/03/19 18:17 Attending/Attestation - Attestation I have personally seen and examined this patient.: Yes I have fully participated in the care of the patient.: Yes I have reviewed all pertinent clinical information, including history, physical exam and plan: Yes Notes (Text): 1. ESRD with fluid overload and metabolic acidosis continue HD TThS Nephro on board Waiting for HD spot in community Continue Renagel 2.Hypertensive urgency Better controlled Continue Clonidine,Hydralazine and Coreg 3.Anemia of chronic disease cont Venofer and Epogen 4. UTI secondary to Enterococcus Faecalis Finished full course with PO Amoxicillin 02/16/19 18:28
--- NOTE | 2019-02-16 13:49 | CP.PCM.PN ---
Subjective - Date & Time of Evaluation Date of Evaluation: 02/16/19 Time of Evaluation: 01:35 - Subjective Subjective: Feels well No complaints reported Objective - Vital Signs/Intake and Output Vital Signs (last 24 hours): Temp Pulse Resp BP Pulse Ox 97.9 F 64 20 142/79 98 02/16/19 08:01 02/16/19 09:18 02/16/19 08:01 02/16/19 13:32 02/16/19 08:01 - Medications Medications: Current Medications Carvedilol (Coreg) 12.5 mg PO Q12 [facility] Last Admin: 02/16/19 09:18 Dose: 12.5 mg Clonidine HCl (Catapres) 0.1 mg PO BID [facility] Last Admin: 02/16/19 09:18 Dose: 0.1 mg Doxercalciferol (Hectorol) 4 mcg IV TTS [facility] Last Admin: 02/15/19 11:13 Dose: 4 mcg Hydralazine HCl (Apresoline) 50 mg PO TID [facility] Last Admin: 02/16/19 13:32 Dose: 50 mg Iron Sucrose 100 mg/ Sodium (Chloride) 105 mls @ 105 mls/hr IVPB TTS [facility] Sevelamer Carbonate (Renvela) 1,600 mg PO TID [facility] Last Admin: 02/16/19 13:32 Dose: 1,600 mg - Labs Labs: 02/16/19 05:35 02/16/19 05:35 PT 13.8 Seconds (9.8-13.1) H 02/03/19 18:17 INR 1.2 02/03/19 18:17 APTT 52.3 Seconds (25.6-37.1) H 02/03/19 18:17 - Constitutional Appears: No Acute Distress - Head Exam Head Exam: ATRAUMATIC, NORMOCEPHALIC - Eye Exam Additional comments: Conjunctiva pale - Respiratory Exam Respiratory Exam: NORMAL BREATHING PATTERN Additional comments: Lungs clear - Cardiovascular Exam Cardiovascular Exam: REGULAR RHYTHM Additional comments: No rub - Extremities Exam Additional comments: No edema + bruit over Lt AVF Assessment and Plan - Assessment and Plan (Free Text) Assessment: ESRD on HD HTN controlled Anemia. No significant improvement in Hb so far. Will add Venofer Iron profile reviewed. Plan: For dialysis tomorrow. Venofer ordered for 5 doses. Ser sodium is better today Restrict PO fluids to 1500 cc.
[2019-02-17 06:39] LABS: HEMOGLOBIN 8.2 g/dL (12.0-18.0); MEAN CELL VOLUME 85.9 fl (80.0-94.0); MEAN CORPUSCULAR HEMOGLOBIN 28.7 pg (27.0-31.0); MEAN CORPUSCULAR HGB CONC 33.5 g/dL (33.0-37.0); RBC 2.85 Mil/uL (4.40-5.90); RED CELL DISTRIBUTION WIDTH 15.5 % (11.5-14.5); WHITE BLOOD COUNT 4.9 K/uL (4.8-10.8)
[2019-02-17 06:58] LABS: ALB/GLOB RATIO 1.3 (1.0-2.1); ALBUMIN 3.5 g/dL (3.5-5.0); CALCIUM 8.6 mg/dL (8.4-10.2)
[2019-02-17] MEDS: Epoetin Alfa 20000 UNIT/ML (RENAL DOSE) SC SCH (09:21)
[2019-02-17] MEDS: Doxercalciferol 4 mcg/2 ml Inj IV SCH (09:22)
--- NOTE | 2019-02-17 09:55 | CP.PCM.PN ---
Subjective - Date & Time of Evaluation Date of Evaluation: 02/17/19 Time of Evaluation: 09:00 - Subjective Subjective: Patient seen and examined bedside . All chart and clinical data reviewed. Feeling well. Denies any pain or discomfort Hemodynamically stable No acute issue overnight For HD today Objective - Vital Signs/Intake and Output Vital Signs (last 24 hours): Temp Pulse Resp BP Pulse Ox 97.7 F 65 20 156/83 H 96 02/17/19 08:13 02/17/19 09:06 02/17/19 08:13 02/17/19 09:06 02/17/19 08:13 - Medications Medications: Current Medications Carvedilol (Coreg) 12.5 mg PO Q12 [facility] [place] Last Admin: 02/17/19 09:06 Dose: 12.5 mg Clonidine HCl (Catapres) 0.1 mg PO BID [facility] Last Admin: 02/17/19 09:06 Dose: 0.1 mg Doxercalciferol (Hectorol) 4 mcg IV TTS [facility] Last Admin: 02/17/19 09:22 Dose: 4 mcg Epoetin Destin (Procrit) 20,000 unit SC TTS [facility] [place] Last Admin: 02/17/19 09:21 Dose: 20,000 unit Hydralazine HCl (Apresoline) 50 mg PO TID [facility] [place] Last Admin: 02/17/19 09:04 Dose: 50 mg Iron Sucrose 100 mg/ Sodium (Chloride) 105 mls @ 105 mls/hr IVPB TTS [facility] [place] Stop: 02/27/19 09:59 Last Admin: 02/17/19 09:21 Dose: 105 mls/hr Sevelamer Carbonate (Renvela) 1,600 mg PO TID [facility] [place] Last Admin: 02/17/19 09:04 Dose: 1,600 mg - Labs Labs: 02/17/19 05:25 02/17/19 05:25 PT 13.8 Seconds (9.8-13.1) H 02/03/19 18:17 INR 1.2 02/03/19 18:17 APTT 52.3 Seconds (25.6-37.1) H 02/03/19 18:17 - Constitutional Appears: Non-toxic, No Acute Distress - Head Exam Head Exam: ATRAUMATIC, NORMAL INSPECTION, NORMOCEPHALIC - Eye Exam Eye Exam: EOMI, Normal appearance, PERRL Pupil Exam: NORMAL ACCOMODATION - ENT Exam ENT Exam: Mucous Membranes Moist, Normal Exam - Neck Exam Neck Exam: Full ROM, Normal Inspection - Respiratory Exam Respiratory Exam: Clear to Ausculation Bilateral. absent: Rales, Rhonchi, Wheezes Additional comments: right upper chest HD catheter - Cardiovascular Exam Cardiovascular Exam: REGULAR RHYTHM, RRR, +S1, +S2. absent: JVD - GI/Abdominal Exam GI & Abdominal Exam: Soft, Normal Bowel Sounds. absent: Distended, Guarding, Tenderness, Rebound - Rectal Exam Rectal Exam: Deferred - Extremities Exam Extremities Exam: Full ROM, Normal Capillary Refill, Normal Inspection. absent: Pedal Edema - Back Exam Back Exam: NORMAL INSPECTION - Neurological Exam Neurological Exam: Alert, Awake, CN II-XII Intact, Normal Gait, Oriented x3 - Psychiatric Exam Psychiatric exam: Normal Affect, Normal Mood - Skin Skin Exam: Dry, Intact, Normal Color, Warm Assessment and Plan - Assessment and Plan (Free Text) Assessment: 33 y/o male with PMH ESRD on HD not compliant, off HD for 2 months , presented to ER with hypertensive urgency, Metabolic acidosis secondary to ESRD , Fluid overload and anemia of chronic disease He was started back on HD and BP meds and at present doing well, waiting for HD spot in community Will receive HD today and feeling well 1.Hypertensive urgency Better controlled Continue Clonidine,Hydralazine and Coreg 2. ESRD with fluid overload and metabolic acidosis continue HD as scheduled Nephro on board Waiting for HD spot in community Continue Renagel Will get HD today 3.Anemia of chronic disease epogen with HD Hgb 8.2 On Venofer IV for 5 days 4. UTI secondary to Enterococcus Faecalis Finished full course with PO Amoxicilline 5. DVT prophylaxis SCD
--- NOTE | 2019-02-17 13:30 | CP.PCM.PN ---
Subjective - Date & Time of Evaluation Date of Evaluation: 02/17/19 Time of Evaluation: 12:30 - Subjective Subjective: No complaints reported Pt denies SOB Objective - Vital Signs/Intake and Output Vital Signs (last 24 hours): Temp Pulse Resp BP Pulse Ox 97.7 F 65 20 155/94 H 96 02/17/19 08:13 02/17/19 09:06 02/17/19 08:13 02/17/19 13:10 02/17/19 08:13 - Medications Medications: Current Medications Carvedilol (Coreg) 12.5 mg PO Q12 [facility] Last Admin: 02/17/19 09:06 Dose: 12.5 mg Clonidine HCl (Catapres) 0.1 mg PO BID [facility] Last Admin: 02/17/19 09:06 Dose: 0.1 mg Doxercalciferol (Hectorol) 4 mcg IV TTS [facility] Last Admin: 02/17/19 09:22 Dose: 4 mcg Epoetin Destin (Procrit) 20,000 unit SC TTS [facility] Last Admin: 02/17/19 09:21 Dose: 20,000 unit Hydralazine HCl (Apresoline) 50 mg PO TID [facility] Last Admin: 02/17/19 13:10 Dose: 50 mg Iron Sucrose 100 mg/ Sodium (Chloride) 105 mls @ 105 mls/hr IVPB TTS [facility] Stop: 02/27/19 09:59 Last Admin: 02/17/19 09:21 Dose: 105 mls/hr Sevelamer Carbonate (Renvela) 1,600 mg PO TID [facility] Last Admin: 02/17/19 13:09 Dose: 1,600 mg - Labs Labs: 02/17/19 05:25 02/17/19 05:25 PT 13.8 Seconds (9.8-13.1) H 02/03/19 18:17 INR 1.2 02/03/19 18:17 APTT 52.3 Seconds (25.6-37.1) H 02/03/19 18:17 - Constitutional Appears: No Acute Distress - Head Exam Head Exam: ATRAUMATIC, NORMOCEPHALIC - Eye Exam Additional comments: Conjunctiva pale - ENT Exam ENT Exam: Mucous Membranes Moist - Neck Exam Neck Exam: Normal Inspection - Respiratory Exam Respiratory Exam: NORMAL BREATHING PATTERN Additional comments: Lungs clear - Cardiovascular Exam Cardiovascular Exam: REGULAR RHYTHM - GI/Abdominal Exam GI & Abdominal Exam: Soft Additional comments: No tenderness - Extremities Exam Additional comments: No edema Assessment and Plan - Assessment and Plan (Free Text) Assessment: ESRD on maintenance HD. Diakysis tolerated well today Labs reviewed. Predialysis Sodium remains low. Will increase UF Lower Hb may be dilutional Epogen dose was increased & is receiving Venofer. Plan: Continue HD per schedule. Blood work on dialysis days only from now on.
[2019-02-18 07:06] LABS: HEMOGLOBIN 8.9 g/dL (12.0-18.0); MEAN CELL VOLUME 85.7 fl (80.0-94.0); MEAN CORPUSCULAR HEMOGLOBIN 28.8 pg (27.0-31.0); MEAN CORPUSCULAR HGB CONC 33.6 g/dL (33.0-37.0); RBC 3.08 Mil/uL (4.40-5.90); WHITE BLOOD COUNT 4.6 K/uL (4.8-10.8)
[2019-02-18 07:59] LABS: CALCIUM 8.5 mg/dL (8.4-10.2)
--- NOTE | 2019-02-18 08:20 | CP.PCM.PN ---
Subjective - Date & Time of Evaluation Date of Evaluation: 02/18/19 Time of Evaluation: 09:45 - Subjective Subjective: Patient seen and examined bedside . All chart and clinical data reviewed. Feeling well. Denies any pain or discomfort Hemodynamically stable No acute issue overnight Received HD yesterday Objective - Vital Signs/Intake and Output Vital Signs (last 24 hours): Temp Pulse Resp BP Pulse Ox 97.8 F 65 20 143/81 97 02/18/19 08:01 02/18/19 08:01 02/18/19 08:01 02/18/19 08:01 02/18/19 08:01 - Medications Medications: Current Medications Carvedilol (Coreg) 12.5 mg PO Q12H [facility] Last Admin: 02/18/19 05:02 Dose: 12.5 mg Clonidine HCl (Catapres) 0.1 mg PO BID [facility] Last Admin: 02/17/19 17:21 Dose: Not Given Doxercalciferol (Hectorol) 4 mcg IV TTS [facility] Last Admin: 02/17/19 09:22 Dose: 4 mcg Epoetin Destin (Procrit) 20,000 unit SC TTS [facility] Last Admin: 02/17/19 09:21 Dose: 20,000 unit Hydralazine HCl (Apresoline) 50 mg PO TID [facility] Last Admin: 02/17/19 17:21 Dose: Not Given Iron Sucrose 100 mg/ Sodium (Chloride) 105 mls @ 105 mls/hr IVPB TTS [facility] Stop: 02/27/19 09:59 Last Admin: 02/17/19 09:21 Dose: 105 mls/hr Sevelamer Carbonate (Renvela) 1,600 mg PO TID [facility] Last Admin: 02/17/19 17:20 Dose: 1,600 mg - Labs Labs: 02/18/19 05:10 02/18/19 05:10 PT 13.8 Seconds (9.8-13.1) H 02/03/19 18:17 INR 1.2 02/03/19 18:17 APTT 52.3 Seconds (25.6-37.1) H 02/03/19 18:17 - Constitutional Appears: Non-toxic, No Acute Distress - Head Exam Head Exam: ATRAUMATIC, NORMOCEPHALIC - Eye Exam Eye Exam: EOMI, PERRL Pupil Exam: NORMAL ACCOMODATION - ENT Exam ENT Exam: Mucous Membranes Moist, Normal Exam - Neck Exam Neck Exam: Full ROM, Normal Inspection - Respiratory Exam Respiratory Exam: Clear to Ausculation Bilateral, NORMAL BREATHING PATTERN. absent: Rales - Cardiovascular Exam Cardiovascular Exam: REGULAR RHYTHM, RRR, +S1, +S2. absent: JVD - GI/Abdominal Exam GI & Abdominal Exam: Soft, Normal Bowel Sounds. absent: Distended, Guarding, Tenderness, Rebound - Rectal Exam Rectal Exam: Deferred - Extremities Exam Extremities Exam: Full ROM, Normal Capillary Refill, Normal Inspection - Back Exam Back Exam: CVA tenderness (L) - Neurological Exam Neurological Exam: Alert, Awake, CN II-XII Intact, Normal Gait, Oriented x3 - Psychiatric Exam Psychiatric exam: Normal Affect, Normal Mood - Skin Skin Exam: Dry, Intact, Normal Color, Warm Assessment and Plan - Assessment and Plan (Free Text) Assessment: 33 y/o male with PMH ESRD on HD not compliant, off HD for 2 months , presented to ER with hypertensive urgency, Metabolic acidosis secondary to ESRD , Fluid overload and anemia of chronic disease He was started back on HD and BP meds and at present doing well, waiting for HD spot in community Received HD yesterday 1.Hypertensive urgency Better controlled Continue Clonidine,Hydralazine and Coreg 2. ESRD with fluid overload and metabolic acidosis continue HD as scheduled Nephro on board Waiting for HD spot in community Continue Renagel Received HD yesterday 3.Anemia of chronic disease epogen with HD Hgb 8.2 On Venofer IV for 5 days 4. UTI secondary to Enterococcus Faecalis Finished full course with PO Amoxicilline 5. DVT prophylaxis SCD
--- NOTE | 2019-02-19 13:35 | CP.PCM.PN ---
Subjective - Date & Time of Evaluation Date of Evaluation: 02/19/19 Time of Evaluation: 08:30 - Subjective Subjective: Patient seen and examined bedside . Feeling well, Hemodynamically satble, afebrile Nov acute issues overnight Objective - Vital Signs/Intake and Output Vital Signs (last 24 hours): Temp Pulse Resp BP Pulse Ox 97.7 F 59 L 18 153/94 H 99 02/19/19 09:00 02/19/19 12:32 02/19/19 09:00 02/19/19 12:32 02/19/19 09:00 - Medications Medications: Current Medications Carvedilol (Coreg) 12.5 mg PO Q12H [facility] Last Admin: 02/19/19 05:03 Dose: 12.5 mg Clonidine HCl (Catapres) 0.1 mg PO BID [facility] Last Admin: 02/19/19 10:00 Dose: 0.1 mg Doxercalciferol (Hectorol) 4 mcg IV TTS [facility] Last Admin: 02/17/19 09:22 Dose: 4 mcg Epoetin Destin (Procrit) 20,000 unit SC TTS [facility] Last Admin: 02/17/19 09:21 Dose: 20,000 unit Hydralazine HCl (Apresoline) 50 mg PO TID [facility] Last Admin: 02/19/19 12:32 Dose: 50 mg Iron Sucrose 100 mg/ Sodium (Chloride) 105 mls @ 105 mls/hr IVPB TTS [facility] Stop: 02/27/19 09:59 Last Admin: 02/17/19 09:21 Dose: 105 mls/hr Sevelamer Carbonate (Renvela) 1,600 mg PO TID [facility] Last Admin: 02/19/19 12:33 Dose: 1,600 mg - Labs Labs: 02/18/19 05:10 02/18/19 05:10 PT 13.8 Seconds (9.8-13.1) H 02/03/19 18:17 INR 1.2 02/03/19 18:17 APTT 52.3 Seconds (25.6-37.1) H 02/03/19 18:17 - Constitutional Appears: Non-toxic, No Acute Distress - Head Exam Head Exam: ATRAUMATIC, NORMAL INSPECTION, NORMOCEPHALIC - Eye Exam Eye Exam: EOMI, Normal appearance, PERRL Pupil Exam: NORMAL ACCOMODATION - ENT Exam ENT Exam: Mucous Membranes Moist, Normal Exam - Neck Exam Neck Exam: Full ROM, Normal Inspection - Respiratory Exam Respiratory Exam: Clear to Ausculation Bilateral, NORMAL BREATHING PATTERN. ab sent: Rales, Rhonchi, Wheezes - Cardiovascular Exam Cardiovascular Exam: REGULAR RHYTHM, RRR, +S1, +S2. absent: JVD - GI/Abdominal Exam GI & Abdominal Exam: Soft, Normal Bowel Sounds. absent: Distended, Guarding, Tenderness, Rebound - Rectal Exam Rectal Exam: Deferred - Extremities Exam Extremities Exam: Full ROM, Normal Capillary Refill, Normal Inspection - Back Exam Back Exam: NORMAL INSPECTION - Neurological Exam Neurological Exam: Alert, Awake, CN II-XII Intact - Psychiatric Exam Psychiatric exam: Normal Affect, Normal Mood - Skin Skin Exam: Dry, Intact, Normal Color, Warm Assessment and Plan - Assessment and Plan (Free Text) Assessment: 33 y/o male with PMH ESRD on HD not compliant, off HD for 2 months , presented to ER with hypertensive urgency, Metabolic acidosis secondary to ESRD , Fluid overload and anemia of chronic disease He was started back on HD and BP meds and at present doing well, waiting for HD spot in community Continue HD as scheduled TThS 1.Hypertensive urgency Better controlled Continue Clonidine,Hydralazine and Coreg 2. ESRD with fluid overload and metabolic acidosis continue HD as scheduled Nephro on board Waiting for HD spot in community Continue Renagel HD as scheduled TThS 3.Anemia of chronic disease epogen with HD Hgb 8.2 On Venofer IV for 5 days 4. UTI secondary to Enterococcus Faecalis Finished full course with PO Amoxicilline 5. DVT prophylaxis SCD
--- NOTE | 2019-02-19 14:15 | CP.PCM.PN ---
Subjective - Date & Time of Evaluation Date of Evaluation: 02/19/19 Time of Evaluation: 01:30 - Subjective Subjective: Feels OK No complaints reported Objective - Vital Signs/Intake and Output Vital Signs (last 24 hours): Temp Pulse Resp BP Pulse Ox 97.7 F 59 L 18 153/94 H 99 02/19/19 09:00 02/19/19 12:32 02/19/19 09:00 02/19/19 12:32 02/19/19 09:00 - Medications Medications: Current Medications Carvedilol (Coreg) 12.5 mg PO Q12H [facility] Last Admin: 02/19/19 05:03 Dose: 12.5 mg Clonidine HCl (Catapres) 0.1 mg PO BID [facility] Last Admin: 02/19/19 10:00 Dose: 0.1 mg Doxercalciferol (Hectorol) 4 mcg IV TTS [facility] Last Admin: 02/17/19 09:22 Dose: 4 mcg Epoetin Destin (Procrit) 20,000 unit SC TTS [facility] Last Admin: 02/17/19 09:21 Dose: 20,000 unit Hydralazine HCl (Apresoline) 50 mg PO TID [facility] Last Admin: 02/19/19 12:32 Dose: 50 mg Iron Sucrose 100 mg/ Sodium (Chloride) 105 mls @ 105 mls/hr IVPB TTS [facility] Stop: 02/27/19 09:59 Last Admin: 02/17/19 09:21 Dose: 105 mls/hr Sevelamer Carbonate (Renvela) 1,600 mg PO TID [facility] Last Admin: 02/19/19 12:33 Dose: 1,600 mg - Labs Labs: 02/18/19 05:10 02/18/19 05:10 PT 13.8 Seconds (9.8-13.1) H 02/03/19 18:17 INR 1.2 02/03/19 18:17 APTT 52.3 Seconds (25.6-37.1) H 02/03/19 18:17 - Constitutional Appears: No Acute Distress - Eye Exam Eye Exam: Normal appearance - ENT Exam ENT Exam: Mucous Membranes Moist - Respiratory Exam Respiratory Exam: NORMAL BREATHING PATTERN Additional comments: Lungs clear - Cardiovascular Exam Cardiovascular Exam: REGULAR RHYTHM - Extremities Exam Additional comments: No ECC Assessment and Plan - Assessment and Plan (Free Text) Assessment: ESRD on [facility] HD HTN Anemia Plan: For dialysis tomorrow. UF is increased Monitor Hb
--- NOTE | 2019-02-20 12:36 | CP.PCM.PN ---
Subjective - Date & Time of Evaluation Date of Evaluation: 02/20/19 Time of Evaluation: 11:00 - Subjective Subjective: Pt is ambulating around the unit awaiting outpt HD placement denies CP no SOB no abd pain Objective - Vital Signs/Intake and Output Vital Signs (last 24 hours): Temp Pulse Resp BP Pulse Ox 97.6 F 63 18 150/80 99 02/20/19 08:38 02/20/19 08:38 02/20/19 08:38 02/20/19 08:38 02/20/19 08:38 - Medications Medications: Current Medications Carvedilol (Coreg) 12.5 mg PO Q12H [facility] Last Admin: 02/20/19 04:12 Dose: 12.5 mg Clonidine HCl (Catapres) 0.1 mg PO BID [facility] Last Admin: 02/20/19 08:27 Dose: Not Given Doxercalciferol (Hectorol) 4 mcg IV TTS [facility] Last Admin: 02/17/19 09:22 Dose: 4 mcg Epoetin Destin (Procrit) 20,000 unit SC TTS [facility] Last Admin: 02/17/19 09:21 Dose: 20,000 unit Hydralazine HCl (Apresoline) 50 mg PO TID [facility] Last Admin: 02/20/19 08:27 Dose: Not Given Iron Sucrose 100 mg/ Sodium (Chloride) 105 mls @ 105 mls/hr IVPB TTS [facility] Stop: 02/27/19 09:59 Last Admin: 02/20/19 09:11 Dose: 105 mls/hr - Labs Labs: 02/18/19 05:10 02/18/19 05:10 PT 13.8 Seconds (9.8-13.1) H 02/03/19 18:17 INR 1.2 02/03/19 18:17 APTT 52.3 Seconds (25.6-37.1) H 02/03/19 18:17 - Constitutional Appears: No Acute Distress - Head Exam Head Exam: NORMAL INSPECTION, NORMOCEPHALIC - Eye Exam Eye Exam: EOMI, Normal appearance, PERRL Pupil Exam: NORMAL ACCOMODATION - ENT Exam ENT Exam: Mucous Membranes Moist, Normal External Ear Exam - Neck Exam Neck Exam: Full ROM. absent: Meningismus - Respiratory Exam Respiratory Exam: NORMAL BREATHING PATTERN. absent: Respiratory Distress - Cardiovascular Exam Cardiovascular Exam: REGULAR RHYTHM, +S1, +S2 Additional comments: right chest HD catheter - GI/Abdominal Exam GI & Abdominal Exam: Soft, Normal Bowel Sounds. absent: Tenderness - Extremities Exam Extremities Exam: Full ROM, Normal Capillary Refill. absent: Calf Tenderness, Pedal Edema Additional comments: Left antecubital area AV shunt , + bruit - Back Exam Back Exam: Full ROM. absent: CVA tenderness (L), CVA tenderness (R) - Neurological Exam Neurological Exam: Alert, Awake, CN II-XII Intact, Normal Gait, Oriented x3 Neuro motor strength exam: Left Upper Extremity: 5, Right Upper Extremity: 5, Left Lower Extremity: 5, Right Lower Extremity: 5 - Psychiatric Exam Psychiatric exam: Normal Affect, Normal Mood - Skin Skin Exam: Dry, Normal Color, Warm Assessment and Plan - Assessment and Plan (Free Text) Plan: 1. ESRD on HD - cont TIW Hemodialysis - awaiting outpt HD placement - Pt has an AV shunt placed on the left arm - done in [facility] -cont Hectorol 2. Hypertensive Emergency/HTN - initially started on IV antihypertensives on admission - cont Hydralazine and Coreg - Increase Clonidine to 02 mg bid 3. UTI- Enterococcus - completed treatment 4. Anemia of Chronic Renal Dis -cont Epogen and Venofer after HD
--- NOTE | 2019-02-20 14:17 | CP.PCM.PN ---
Subjective - Date & Time of Evaluation Date of Evaluation: 02/20/19 Time of Evaluation: 01:45 - Subjective Subjective: Currently on dialysis. Comfortable supine Objective - Vital Signs/Intake and Output Vital Signs (last 24 hours): Temp Pulse Resp BP Pulse Ox 97.6 F 63 18 150/80 99 02/20/19 08:38 02/20/19 08:38 02/20/19 08:38 02/20/19 08:38 02/20/19 08:38 - Medications Medications: Current Medications Carvedilol (Coreg) 12.5 mg PO Q12H [facility] Last Admin: 02/20/19 04:12 Dose: 12.5 mg Clonidine HCl (Catapres) 0.1 mg PO BID [facility] Last Admin: 02/20/19 08:27 Dose: Not Given Doxercalciferol (Hectorol) 4 mcg IV TTS [facility] Last Admin: 02/17/19 09:22 Dose: 4 mcg Epoetin Destin (Procrit) 20,000 unit SC TTS [facility] Last Admin: 02/17/19 09:21 Dose: 20,000 unit Hydralazine HCl (Apresoline) 50 mg PO TID [facility] Last Admin: 02/20/19 12:47 Dose: Not Given Iron Sucrose 100 mg/ Sodium (Chloride) 105 mls @ 105 mls/hr IVPB TTS [facility] Stop: 02/27/19 09:59 Last Admin: 02/20/19 09:11 Dose: 105 mls/hr - Labs Labs: 02/18/19 05:10 02/18/19 05:10 PT 13.8 Seconds (9.8-13.1) H 02/03/19 18:17 INR 1.2 02/03/19 18:17 APTT 52.3 Seconds (25.6-37.1) H 02/03/19 18:17 - Constitutional Appears: No Acute Distress - Eye Exam Eye Exam: Normal appearance - ENT Exam ENT Exam: Mucous Membranes Moist - Respiratory Exam Respiratory Exam: NORMAL BREATHING PATTERN Additional comments: Lungs clear - Cardiovascular Exam Cardiovascular Exam: REGULAR RHYTHM - Extremities Exam Additional comments: No edema Assessment and Plan - Assessment and Plan (Free Text) Assessment: ESRD HD dependent. UF of 4.3 is planned today Remains hyponatremic which is dilutional sec to excessive ID wt gain HTN BP s are satisfactory Plan: HD per schedule Monitor Hb
[2019-02-20] MEDS: Epoetin Alfa 20000 UNIT/ML (RENAL DOSE) SC SCH (16:00)
[2019-02-20] MEDS: Doxercalciferol 4 mcg/2 ml Inj IV SCH (16:00)
--- NOTE | 2019-02-21 16:38 | CP.PCM.PN ---
Subjective - Date & Time of Evaluation Date of Evaluation: 02/21/19 Time of Evaluation: 11:30 - Subjective Subjective: Pt had HD yesterday walking around the unit denies any sxs no fever BP better controlled today Objective - Vital Signs/Intake and Output Vital Signs (last 24 hours): Temp Pulse Resp BP Pulse Ox 97.8 F 69 20 142/75 99 02/21/19 16:01 02/21/19 16:37 02/21/19 16:01 02/21/19 16:37 02/21/19 16:01 - Medications Medications: Current Medications Carvedilol (Coreg) 12.5 mg PO Q12H [facility] Last Admin: 02/21/19 16:37 Dose: 12.5 mg Clonidine HCl (Catapres) 0.2 mg PO BID [facility] Last Admin: 02/21/19 16:37 Dose: 0.2 mg Doxercalciferol (Hectorol) 4 mcg IV TTS [facility] Last Admin: 02/20/19 16:00 Dose: 4 mcg Epoetin Destin (Procrit) 20,000 unit SC TTS [facility] Last Admin: 02/20/19 16:00 Dose: 20,000 unit Hydralazine HCl (Apresoline) 50 mg PO TID [facility] Last Admin: 02/21/19 16:37 Dose: 50 mg Iron Sucrose 100 mg/ Sodium (Chloride) 105 mls @ 105 mls/hr IVPB TTS [facility] Stop: 02/27/19 09:59 Last Admin: 02/20/19 09:11 Dose: 105 mls/hr - Labs Labs: - Constitutional Appears: No Acute Distress - Head Exam Head Exam: NORMAL INSPECTION, NORMOCEPHALIC - Eye Exam Eye Exam: EOMI, Normal appearance, PERRL Pupil Exam: NORMAL ACCOMODATION - ENT Exam ENT Exam: Mucous Membranes Moist, Normal External Ear Exam - Neck Exam Neck Exam: Full ROM. absent: Meningismus - Respiratory Exam Respiratory Exam: NORMAL BREATHING PATTERN. absent: Respiratory Distress - Cardiovascular Exam Cardiovascular Exam: REGULAR RHYTHM, +S1, +S2 Additional comments: right chest HD catheter - GI/Abdominal Exam GI & Abdominal Exam: Soft, Normal Bowel Sounds. absent: Tenderness - Extremities Exam Extremities Exam: Full ROM, Normal Capillary Refill. absent: Calf Tenderness, Pedal Edema Additional comments: Left antecubital area AV shunt , + bruit - Back Exam Back Exam: Full ROM. absent: CVA tenderness (L), CVA tenderness (R) - Neurological Exam Neurological Exam: Alert, Awake, CN II-XII Intact, Normal Gait, Oriented x3 Neuro motor strength exam: Left Upper Extremity: 5, Right Upper Extremity: 5, Left Lower Extremity: 5, Right Lower Extremity: 5 - Psychiatric Exam Psychiatric exam: Normal Affect, Normal Mood - Skin Skin Exam: Dry, Normal Color, Warm Assessment and Plan - Assessment and Plan (Free Text) Plan: 1. ESRD on HD - cont TIW Hemodialysis TThS - awaiting outpt HD placement - Pt has an AV shunt placed on the left arm - done in [facility] -cont Hectorol 2. Hypertensive Emergency/HTN - initially started on IV antihypertensives on admission - cont Hydralazine and Coreg - Increase Clonidine to 02 mg bid 3. UTI- Enterococcus - completed treatment 4. Anemia of Chronic Renal Dis -cont Epogen and Venofer after HD
[2019-02-22] MEDS: Doxercalciferol 4 mcg/2 ml Inj IV SCH (09:29)
[2019-02-22] MEDS: Epoetin Alfa 20000 UNIT/ML (RENAL DOSE) SC SCH (09:31)
--- NOTE | 2019-02-22 14:13 | CP.PCM.PN ---
Subjective - Date & Time of Evaluation Date of Evaluation: 02/22/19 Time of Evaluation: 01:45 - Subjective Subjective: No complaints. Dialysis tolerated well today. Objective - Vital Signs/Intake and Output Vital Signs (last 24 hours): Temp Pulse Resp BP Pulse Ox 97.5 F L 86 20 144/77 98 02/22/19 07:40 02/22/19 07:40 02/22/19 07:40 02/22/19 07:40 02/22/19 07:40 - Medications Medications: Current Medications Carvedilol (Coreg) 12.5 mg PO Q12H [facility] Last Admin: 02/22/19 04:43 Dose: 12.5 mg Clonidine HCl (Catapres) 0.2 mg PO BID [facility] Last Admin: 02/22/19 09:28 Dose: Not Given Doxercalciferol (Hectorol) 4 mcg IV TTS [facility] Last Admin: 02/22/19 09:29 Dose: 4 mcg Epoetin Destin (Procrit) 20,000 unit SC TTS [facility] Last Admin: 02/22/19 09:31 Dose: 20,000 unit Hydralazine HCl (Apresoline) 50 mg PO TID [facility] Last Admin: 02/22/19 12:35 Dose: Not Given Iron Sucrose 100 mg/ Sodium (Chloride) 105 mls @ 105 mls/hr IVPB TTS [facility] Stop: 02/27/19 09:59 Last Admin: 02/22/19 09:38 Dose: 105 mls/hr - Labs Labs: 02/18/19 05:10 02/18/19 05:10 PT 13.8 Seconds (9.8-13.1) H 02/03/19 18:17 INR 1.2 02/03/19 18:17 APTT 52.3 Seconds (25.6-37.1) H 02/03/19 18:17 - Constitutional Appears: No Acute Distress - Head Exam Head Exam: ATRAUMATIC, NORMOCEPHALIC - Eye Exam Eye Exam: Normal appearance - ENT Exam ENT Exam: Mucous Membranes Moist - Neck Exam Additional comments: No jugular venous distention - Respiratory Exam Respiratory Exam: NORMAL BREATHING PATTERN Additional comments: Lungs clear - Cardiovascular Exam Cardiovascular Exam: REGULAR RHYTHM Additional comments: No rub - GI/Abdominal Exam GI & Abdominal Exam: Soft - Extremities Exam Additional comments: No edema Assessment and Plan - Assessment and Plan (Free Text) Assessment: ESRD on maintenance HD HTN Anemia of CKD Plan: Dialysis tolerated well today. UF is increased BP controlled Cont HD TTS. Labs with next dialysis.
--- NOTE | 2019-02-22 15:09 | CP.PCM.PN ---
Subjective - Date & Time of Evaluation Date of Evaluation: 02/22/19 Time of Evaluation: 11:15 - Subjective Subjective: No fever currently having Hemodialysis denies any sxs awaiting outpt HD placement BP now better controlled Objective - Vital Signs/Intake and Output Vital Signs (last 24 hours): Temp Pulse Resp BP Pulse Ox 97.5 F L 86 20 144/77 98 02/22/19 07:40 02/22/19 07:40 02/22/19 07:40 02/22/19 07:40 02/22/19 07:40 - Medications Medications: Current Medications Carvedilol (Coreg) 12.5 mg PO Q12H [facility] Last Admin: 02/22/19 04:43 Dose: 12.5 mg Clonidine HCl (Catapres) 0.2 mg PO BID [facility] Last Admin: 02/22/19 09:28 Dose: Not Given Doxercalciferol (Hectorol) 4 mcg IV TTS [facility] Last Admin: 02/22/19 09:29 Dose: 4 mcg Epoetin Destin (Procrit) 20,000 unit SC TTS [facility] Last Admin: 02/22/19 09:31 Dose: 20,000 unit Hydralazine HCl (Apresoline) 50 mg PO TID [facility] Last Admin: 02/22/19 12:35 Dose: Not Given Iron Sucrose 100 mg/ Sodium (Chloride) 105 mls @ 105 mls/hr IVPB TTS [facility] Stop: 02/27/19 09:59 Last Admin: 02/22/19 09:38 Dose: 105 mls/hr - Labs Labs: 02/18/19 05:10 02/18/19 05:10 PT 13.8 Seconds (9.8-13.1) H 02/03/19 18:17 INR 1.2 02/03/19 18:17 APTT 52.3 Seconds (25.6-37.1) H 02/03/19 18:17 - Constitutional Appears: No Acute Distress - Head Exam Head Exam: NORMAL INSPECTION, NORMOCEPHALIC - Eye Exam Eye Exam: EOMI, Normal appearance, PERRL Pupil Exam: NORMAL ACCOMODATION - ENT Exam ENT Exam: Mucous Membranes Moist, Normal External Ear Exam - Neck Exam Neck Exam: Full ROM. absent: Meningismus - Respiratory Exam Respiratory Exam: NORMAL BREATHING PATTERN. absent: Respiratory Distress - Cardiovascular Exam Cardiovascular Exam: REGULAR RHYTHM, +S1, +S2 Additional comments: right chest HD catheter - GI/Abdominal Exam GI & Abdominal Exam: Soft, Normal Bowel Sounds. absent: Tenderness - Extremities Exam Extremities Exam: Full ROM, Normal Capillary Refill. absent: Calf Tenderness, Pedal Edema Additional comments: Left antecubital area AV shunt , + bruit - Back Exam Back Exam: Full ROM. absent: CVA tenderness (L), CVA tenderness (R) - Neurological Exam Neurological Exam: Alert, Awake, CN II-XII Intact, Normal Gait, Oriented x3 Neuro motor strength exam: Left Upper Extremity: 5, Right Upper Extremity: 5, Left Lower Extremity: 5, Right Lower Extremity: 5 - Psychiatric Exam Psychiatric exam: Normal Affect, Normal Mood - Skin Skin Exam: Dry, Normal Color, Warm Assessment and Plan - Assessment and Plan (Free Text) Plan: 1. ESRD on HD - cont TIW Hemodialysis TThS ( pt has right chest Permacath) - awaiting outpt HD placement - Pt has an AV shunt placed on the left arm - done in [facility] , has not yet matured -cont Hectorol 2. Hypertensive Emergency/HTN - initially started on IV antihypertensives on admission - cont Hydralazine and Coreg - Increased Clonidine to 0.2 mg bid, now better controlled 3. UTI- Enterococcus - completed treatment 4. Anemia of Chronic Renal Dis -cont Epogen and Venofer after HD
--- NOTE | 2019-02-23 08:53 | CP.PCM.PN ---
<Cady Lees - Last Filed: 02/23/19 09:37> Subjective - Date & Time of Evaluation Date of Evaluation: 02/23/19 Time of Evaluation: 08:15 - Subjective Subjective: Patient seen and examined at bedside. Pt denies any complaints today. Had HD yesterday. Denies chest pain, shortness of breath, nausea, vomiting, abdominal pain. Afebrile over night. No acute events overnight. Objective - Vital Signs/Intake and Output Vital Signs (last 24 hours): Temp Pulse Resp BP Pulse Ox 98.1 F 59 L 20 135/85 98 02/23/19 07:41 02/23/19 07:41 02/23/19 07:41 02/23/19 07:41 02/23/19 07:41 - Medications Medications: Current Medications Carvedilol (Coreg) 12.5 mg PO Q12H [facility] Last Admin: 02/23/19 04:18 Dose: 12.5 mg Clonidine HCl (Catapres) 0.2 mg PO BID [facility] Last Admin: 02/22/19 16:30 Dose: 0.2 mg Doxercalciferol (Hectorol) 4 mcg IV TTS [facility] Last Admin: 02/22/19 09:29 Dose: 4 mcg Epoetin Destin (Procrit) 20,000 unit SC TTS [facility] Last Admin: 02/22/19 09:31 Dose: 20,000 unit Hydralazine HCl (Apresoline) 50 mg PO TID [facility] Last Admin: 02/22/19 16:30 Dose: 50 mg Iron Sucrose 100 mg/ Sodium (Chloride) 105 mls @ 105 mls/hr IVPB TTS [facility] Stop: 02/27/19 09:59 Last Admin: 02/22/19 09:38 Dose: 105 mls/hr - Labs Labs: 02/18/19 05:10 02/18/19 05:10 PT 13.8 Seconds (9.8-13.1) H 02/03/19 18:17 INR 1.2 02/03/19 18:17 APTT 52.3 Seconds (25.6-37.1) H 02/03/19 18:17 - Constitutional Appears: Well, Non-toxic, No Acute Distress - Head Exam Head Exam: NORMAL INSPECTION - Eye Exam Eye Exam: Normal appearance - ENT Exam ENT Exam: Mucous Membranes Moist - Respiratory Exam Respiratory Exam: Clear to Ausculation Bilateral, NORMAL BREATHING PATTERN - Cardiovascular Exam Cardiovascular Exam: REGULAR RHYTHM, +S1, +S2 - GI/Abdominal Exam GI & Abdominal Exam: Soft. absent: Firm, Guarding, Rigid, Tenderness, Mass, Rebound - Extremities Exam Extremities Exam: Full ROM, Normal Capillary Refill, Normal Inspection. absent: Calf Tenderness, Joint Swelling, Pedal Edema, Tenderness - Neurological Exam Neurological Exam: Alert, Awake, Oriented x3 - Psychiatric Exam Psychiatric exam: Normal Affect, Normal Mood - Skin Skin Exam: Dry, Normal Color, Warm Assessment and Plan - Assessment and Plan (Free Text) Assessment: 33 y/o male with medical history of ESRD on HD (not compliant-off HD for 2 months) , presented to ER with hypertensive urgency, Metabolic acidosis secondary to ESRD , Fluid overload and anemia of chronic disease. HD was restarted at that time and BP meds. Present doing well, waiting for HD spot in community. Continue HD as scheduled TThS Plan: 1. ESRD on HD - c/w TIW Hemodialysis TThS ( pt has right chest Permacath) - awaiting outpt HD placement - Pt has an AV shunt placed on the left arm - done in [facility] , has not yet matured -c/w Hectorol 2. Hypertensive Emergency/HTN - initially started on IV antihypertensives on admission - c/w Hydralazine and Coreg - Increased to Clonidine to 0.2 mg bid, now better controlled 3. UTI- Enterococcus - completed treatment 4. Anemia of Chronic Renal Dis -cont Epogen and Venofer after HD 5. DVT prophylaxis SCD's <Barby Hernández - Last Filed: 02/26/19 13:13> Objective - Vital Signs/Intake and Output Vital Signs (last 24 hours): Temp Pulse Resp BP Pulse Ox 97.5 F L 62 20 143/74 98 02/26/19 07:35 02/26/19 12:24 02/26/19 07:35 02/26/19 12:24 02/26/19 07:35 - Medications Medications: Current Medications Bacitracin (Bacitracin Oint) 1 applic TOP TID [facility] Last Admin: 02/26/19 12:24 Dose: 1 applic Carvedilol (Coreg) 12.5 mg PO Q12H [facility] Last Admin: 02/26/19 04:55 Dose: 12.5 mg Clonidine HCl (Catapres) 0.2 mg PO BID [facility] Last Admin: 02/26/19 08:29 Dose: 0.2 mg Doxercalciferol (Hectorol) 4 mcg IV TTS [facility] Last Admin: 02/24/19 12:22 Dose: 4 mcg Epoetin Destin (Procrit) 20,000 unit SC TTS [facility] Last Admin: 02/24/19 12:22 Dose: 20,000 unit Hydralazine HCl (Apresoline) 50 mg PO TID [facility] Last Admin: 02/26/19 12:24 Dose: 50 mg Iron Sucrose 100 mg/ Sodium (Chloride) 105 mls @ 105 mls/hr IVPB TTS [facility] Stop: 02/27/19 09:59 Last Admin: 02/24/19 09:30 Dose: 105 mls/hr Sevelamer Carbonate (Renvela) 1,600 mg PO TID [facility] Last Admin: 02/26/19 12:25 Dose: 1,600 mg - Labs Labs: 02/25/19 06:00 02/25/19 06:00 PT 13.8 Seconds (9.8-13.1) H 02/03/19 18:17 INR 1.2 02/03/19 18:17 APTT 52.3 Seconds (25.6-37.1) H 02/03/19 18:17 Attending/Attestation - Attestation I have personally seen and examined this patient.: Yes I have fully participated in the care of the patient.: Yes I have reviewed all pertinent clinical information, including history, physical exam and plan: Yes Notes (Text): Agree with findings and plan as above. No changes in current management.
--- NOTE | 2019-02-24 07:28 | CP.PCM.PN ---
<Cady Lees - Last Filed: 02/24/19 08:29> Subjective - Date & Time of Evaluation Date of Evaluation: 02/24/19 Time of Evaluation: 08:00 - Subjective Subjective: Patient seen and examined at bedside. Reports feeling well without any complaints. Denies Chest pain, dypsnea, nausea, vomiting, and abdominal pain. Reports good appetite and had a BM this morning. Afebrile. No acute events overnight. Objective - Vital Signs/Intake and Output Vital Signs (last 24 hours): Temp Pulse Resp BP Pulse Ox 97.6 F 82 18 158/83 H 98 02/24/19 00:24 02/24/19 05:56 02/24/19 00:24 02/24/19 05:56 02/24/19 00:24 - Medications Medications: Current Medications Carvedilol (Coreg) 12.5 mg PO Q12H [facility] Last Admin: 02/24/19 05:56 Dose: 12.5 mg Clonidine HCl (Catapres) 0.2 mg PO BID [facility] Last Admin: 02/23/19 16:51 Dose: 0.2 mg Doxercalciferol (Hectorol) 4 mcg IV TTS [facility] Last Admin: 02/22/19 09:29 Dose: 4 mcg Epoetin Destin (Procrit) 20,000 unit SC TTS [facility] Last Admin: 02/22/19 09:31 Dose: 20,000 unit Hydralazine HCl (Apresoline) 50 mg PO TID [facility] Last Admin: 02/23/19 16:50 Dose: 50 mg Iron Sucrose 100 mg/ Sodium (Chloride) 105 mls @ 105 mls/hr IVPB TTS [facility] Stop: 02/27/19 09:59 Last Admin: 02/22/19 09:38 Dose: 105 mls/hr Sevelamer HCl (Renagel) 1,600 mg PO TID [facility] - Labs Labs: 02/18/19 05:10 02/18/19 05:10 PT 13.8 Seconds (9.8-13.1) H 02/03/19 18:17 INR 1.2 02/03/19 18:17 APTT 52.3 Seconds (25.6-37.1) H 02/03/19 18:17 - Constitutional Appears: Well, Non-toxic, No Acute Distress - ENT Exam ENT Exam: Mucous Membranes Moist - Respiratory Exam Respiratory Exam: Clear to Ausculation Bilateral, NORMAL BREATHING PATTERN. absent: Accessory Muscle Use, Chest Wall Tenderness, Decreased Breath Sounds, Prolonged Expiratory Phase, Rales, Rhonchi, Wheezes, Respiratory Distress, Stridor - Cardiovascular Exam Cardiovascular Exam: REGULAR RHYTHM, +S1, +S2 - GI/Abdominal Exam GI & Abdominal Exam: Soft, Normal Bowel Sounds. absent: Distended, Firm, Rigid, Tenderness, Rebound - Extremities Exam Extremities Exam: Normal Capillary Refill, Normal Inspection. absent: Calf Tenderness, Pedal Edema, Tenderness Additional comments: Right forearm [id number] erythema with punctate in center (from previous IV), non- tender to palpation, no drainage - Neurological Exam Neurological Exam: Alert, Awake, Oriented x3 - Psychiatric Exam Psychiatric exam: Normal Affect, Normal Mood - Skin Skin Exam: Dry, Intact, Normal Color, Warm Assessment and Plan - Assessment and Plan (Free Text) Assessment: 33 y/o male with PMH ESRD on HD not compliant, off HD for 2 months , presented to ER with hypertensive urgency, Metabolic acidosis secondary to ESRD , Fluid overload and anemia of chronic disease He was started back on HD and BP meds and at present doing well, waiting for HD spot in community Continue HD as scheduled TThS Plan: 1. ESRD on HD - c/w TIW Hemodialysis TThS ( pt has right chest Permacath) - awaiting outpt HD placement - Pt has an AV shunt placed on the left arm - done in [facility] , has not yet matured -c/w Hectorol 2. Hypertensive Emergency/HTN - initially started on IV antihypertensives on admission - c/w Hydralazine and Coreg - Increased to Clonidine to 0.2 mg bid, now better controlled 3. UTI- Enterococcus - completed treatment 4. Anemia of Chronic Renal Dis -cont Epogen and Venofer after HD 5. DVT prophylaxis SCD's <Barby Hernández - Last Filed: 02/26/19 13:01> Objective - Vital Signs/Intake and Output Vital Signs (last 24 hours): Temp Pulse Resp BP Pulse Ox 97.5 F L 62 20 143/74 98 02/26/19 07:35 02/26/19 12:24 02/26/19 07:35 02/26/19 12:24 02/26/19 07:35 - Medications Medications: Current Medications Bacitracin (Bacitracin Oint) 1 applic TOP TID [facility] Last Admin: 02/26/19 12:24 Dose: 1 applic Carvedilol (Coreg) 12.5 mg PO Q12H [facility] Last Admin: 02/26/19 04:55 Dose: 12.5 mg Clonidine HCl (Catapres) 0.2 mg PO BID [facility] Last Admin: 02/26/19 08:29 Dose: 0.2 mg Doxercalciferol (Hectorol) 4 mcg IV TTS [facility] Last Admin: 02/24/19 12:22 Dose: 4 mcg Epoetin Destin (Procrit) 20,000 unit SC TTS [facility] Last Admin: 02/24/19 12:22 Dose: 20,000 unit Hydralazine HCl (Apresoline) 50 mg PO TID [facility] Last Admin: 02/26/19 12:24 Dose: 50 mg Iron Sucrose 100 mg/ Sodium (Chloride) 105 mls @ 105 mls/hr IVPB TTS [facility] Stop: 02/27/19 09:59 Last Admin: 02/24/19 09:30 Dose: 105 mls/hr Sevelamer Carbonate (Renvela) 1,600 mg PO TID [facility] Last Admin: 02/26/19 12:25 Dose: 1,600 mg - Labs Labs: 02/25/19 06:00 02/25/19 06:00 PT 13.8 Seconds (9.8-13.1) H 02/03/19 18:17 INR 1.2 02/03/19 18:17 APTT 52.3 Seconds (25.6-37.1) H 02/03/19 18:17 Attending/Attestation - Attestation I have personally seen and examined this patient.: Yes I have fully participated in the care of the patient.: Yes I have reviewed all pertinent clinical information, including history, physical exam and plan: Yes Notes (Text): Agree with findings and plan as above. No changes in current management.
[2019-02-24] MEDS: Epoetin Alfa 20000 UNIT/ML (RENAL DOSE) SC SCH (12:22)
[2019-02-24] MEDS: Doxercalciferol 4 mcg/2 ml Inj IV SCH (12:22)
--- NOTE | 2019-02-24 13:03 | CP.PCM.PN ---
Subjective - Date & Time of Evaluation Date of Evaluation: 02/24/19 Time of Evaluation: 12:15 - Subjective Subjective: Currently on dialysis Appears comfortable. No complaints Objective - Vital Signs/Intake and Output Vital Signs (last 24 hours): Temp Pulse Resp BP Pulse Ox 97.6 F 63 20 141/83 96 02/24/19 09:00 02/24/19 09:33 02/24/19 09:00 02/24/19 09:33 02/24/19 09:00 - Medications Medications: Current Medications Carvedilol (Coreg) 12.5 mg PO Q12H [facility] Last Admin: 02/24/19 05:56 Dose: 12.5 mg Clonidine HCl (Catapres) 0.2 mg PO BID [facility] Last Admin: 02/24/19 09:33 Dose: 0.2 mg Doxercalciferol (Hectorol) 4 mcg IV TTS [facility] Last Admin: 02/24/19 12:22 Dose: 4 mcg Epoetin Destin (Procrit) 20,000 unit SC TTS [facility] Last Admin: 02/24/19 12:22 Dose: 20,000 unit Hydralazine HCl (Apresoline) 50 mg PO TID [facility] Last Admin: 02/24/19 12:57 Dose: Not Given Iron Sucrose 100 mg/ Sodium (Chloride) 105 mls @ 105 mls/hr IVPB TTS [facility] Stop: 02/27/19 09:59 Last Admin: 02/24/19 09:30 Dose: 105 mls/hr Sevelamer HCl (Renagel) 1,600 mg PO TID [facility] Last Admin: 02/24/19 09:30 Dose: 1,600 mg - Labs Labs: 02/18/19 05:10 02/18/19 05:10 PT 13.8 Seconds (9.8-13.1) H 02/03/19 18:17 INR 1.2 02/03/19 18:17 APTT 52.3 Seconds (25.6-37.1) H 02/03/19 18:17 - Head Exam Head Exam: ATRAUMATIC, NORMOCEPHALIC - Eye Exam Eye Exam: Normal appearance - ENT Exam ENT Exam: Mucous Membranes Moist - Neck Exam Neck Exam: Full ROM - Respiratory Exam Respiratory Exam: Clear to Ausculation Bilateral, NORMAL BREATHING PATTERN - Cardiovascular Exam Cardiovascular Exam: REGULAR RHYTHM - Extremities Exam Additional comments: No edema Assessment and Plan - Assessment and Plan (Free Text) Assessment: ESRD . Stable on HD Labs not available Tolerating UF of 4.0- 4.5 well BP wello controled Plan: HD per schedule Labs in am
[2019-02-25 07:45] LABS: BASO # 0.1 K/uL (0.0-0.2); BASO % 1.2 % (0.0-2.0); EOS # 0.3 K/uL (0.0-0.7); EOS % 5.2 % (0.0-4.0); HEMOGLOBIN 10.8 g/dL (12.0-18.0); LYMPH % 19.4 % (20.0-40.0); MEAN CELL VOLUME 88.7 fl (80.0-94.0); MEAN CORPUSCULAR HEMOGLOBIN 29.5 pg (27.0-31.0); MEAN CORPUSCULAR HGB CONC 33.3 g/dL (33.0-37.0); MEAN PLATELET VOLUME 8.1 fl (7.2-11.7); MONO # 0.9 K/uL (0.0-0.8); MONO % 18.1 % (0.0-10.0); NEUT # 2.8 K/uL (1.8-7.0); NEUT % 56.1 % (50.0-75.0); NRBC % 0.4 % (0.0-0.0); RBC 3.66 Mil/uL (4.40-5.90); RED CELL DISTRIBUTION WIDTH 16.6 % (11.5-14.5)
[2019-02-25 07:58] LABS: CALCIUM 9.2 mg/dL (8.4-10.2)
--- NOTE | 2019-02-25 10:54 | CP.PCM.PN ---
Objective - Vital Signs/Intake and Output Vital Signs (last 24 hours): Temp Pulse Resp BP Pulse Ox 98.1 F 56 L 20 143/86 96 02/25/19 09:00 02/25/19 09:00 02/25/19 09:00 02/25/19 09:00 02/25/19 09:00 - Medications Medications: Current Medications Carvedilol (Coreg) 12.5 mg PO Q12H [facility] Last Admin: 02/25/19 05:23 Dose: 12.5 mg Clonidine HCl (Catapres) 0.2 mg PO BID [facility] Last Admin: 02/25/19 08:44 Dose: 0.2 mg Doxercalciferol (Hectorol) 4 mcg IV TTS [facility] Last Admin: 02/24/19 12:22 Dose: 4 mcg Epoetin Destin (Procrit) 20,000 unit SC TTS [facility] Last Admin: 02/24/19 12:22 Dose: 20,000 unit Hydralazine HCl (Apresoline) 50 mg PO TID [facility] Last Admin: 02/25/19 08:42 Dose: 50 mg Iron Sucrose 100 mg/ Sodium (Chloride) 105 mls @ 105 mls/hr IVPB TTS [facility] Stop: 02/27/19 09:59 Last Admin: 02/24/19 09:30 Dose: 105 mls/hr Sevelamer HCl (Renagel) 1,600 mg PO TID [facility] Last Admin: 02/25/19 08:44 Dose: 1,600 mg - Labs Labs: 02/25/19 06:00 02/25/19 06:00 PT 13.8 Seconds (9.8-13.1) H 02/03/19 18:17 INR 1.2 02/03/19 18:17 APTT 52.3 Seconds (25.6-37.1) H 02/03/19 18:17
--- NOTE | 2019-02-25 11:05 | CP.PCM.PN ---
Subjective - Date & Time of Evaluation Date of Evaluation: 02/25/19 Time of Evaluation: 10:00 - Subjective Subjective: Awaiting Outpt HD placement denies CP no SOB no pedal edema no abd pain no fever Objective - Vital Signs/Intake and Output Vital Signs (last 24 hours): Temp Pulse Resp BP Pulse Ox 98.1 F 56 L 20 143/86 96 02/25/19 09:00 02/25/19 09:00 02/25/19 09:00 02/25/19 09:00 02/25/19 09:00 - Medications Medications: Current Medications Carvedilol (Coreg) 12.5 mg PO Q12H [facility] Last Admin: 02/25/19 05:23 Dose: 12.5 mg Clonidine HCl (Catapres) 0.2 mg PO BID [facility] Last Admin: 02/25/19 08:44 Dose: 0.2 mg Doxercalciferol (Hectorol) 4 mcg IV TTS [facility] Last Admin: 02/24/19 12:22 Dose: 4 mcg Epoetin Destin (Procrit) 20,000 unit SC TTS [facility] Last Admin: 02/24/19 12:22 Dose: 20,000 unit Hydralazine HCl (Apresoline) 50 mg PO TID [facility] Last Admin: 02/25/19 08:42 Dose: 50 mg Iron Sucrose 100 mg/ Sodium (Chloride) 105 mls @ 105 mls/hr IVPB TTS [facility] Stop: 02/27/19 09:59 Last Admin: 02/24/19 09:30 Dose: 105 mls/hr Sevelamer HCl (Renagel) 1,600 mg PO TID [facility] Last Admin: 02/25/19 08:44 Dose: 1,600 mg - Labs Labs: 02/25/19 06:00 02/25/19 06:00 PT 13.8 Seconds (9.8-13.1) H 02/03/19 18:17 INR 1.2 02/03/19 18:17 APTT 52.3 Seconds (25.6-37.1) H 02/03/19 18:17 - Constitutional Appears: No Acute Distress - Head Exam Head Exam: NORMAL INSPECTION, NORMOCEPHALIC - Eye Exam Eye Exam: EOMI, Normal appearance, PERRL Pupil Exam: NORMAL ACCOMODATION - ENT Exam ENT Exam: Mucous Membranes Moist, Normal External Ear Exam - Neck Exam Neck Exam: Full ROM. absent: Meningismus - Respiratory Exam Respiratory Exam: NORMAL BREATHING PATTERN. absent: Respiratory Distress - Cardiovascular Exam Cardiovascular Exam: REGULAR RHYTHM, +S1, +S2 Additional comments: right chest HD catheter - GI/Abdominal Exam GI & Abdominal Exam: Soft, Normal Bowel Sounds. absent: Tenderness - Extremities Exam Extremities Exam: Full ROM, Normal Capillary Refill. absent: Calf Tenderness, Pedal Edema Additional comments: Left antecubital area AV shunt , + bruit - Back Exam Back Exam: Full ROM. absent: CVA tenderness (L), CVA tenderness (R) - Neurological Exam Neurological Exam: Alert, Awake, CN II-XII Intact, Normal Gait, Oriented x3 Neuro motor strength exam: Left Upper Extremity: 5, Right Upper Extremity: 5, Left Lower Extremity: 5, Right Lower Extremity: 5 - Psychiatric Exam Psychiatric exam: Normal Affect, Normal Mood - Skin Skin Exam: Dry, Normal Color, Warm Assessment and Plan - Assessment and Plan (Free Text) Plan: 1. ESRD on HD - cont TIW Hemodialysis TThS ( pt has right chest Permacath) - awaiting outpt HD placement - Pt has an AV shunt placed on the left arm - done in [facility] , has not yet matured -cont Hectorol 2. Hypertensive Emergency/HTN - initially started on IV antihypertensives on admission - cont Hydralazine and Coreg - Increased Clonidine to 0.2 mg bid, now better controlled 3. UTI- Enterococcus - completed treatment 4. Anemia of Chronic Renal Dis -cont Epogen and Venofer after HD
--- NOTE | 2019-02-25 12:48 | CP.PCM.PN ---
Subjective - Date & Time of Evaluation Date of Evaluation: 02/25/19 Time of Evaluation: 11:50 - Subjective Subjective: No complaints. Appears comfortable Objective - Vital Signs/Intake and Output Vital Signs (last 24 hours): Temp Pulse Resp BP Pulse Ox 98.1 F 62 20 134/81 96 02/25/19 09:00 02/25/19 12:37 02/25/19 09:00 02/25/19 12:37 02/25/19 09:00 - Medications Medications: Current Medications Carvedilol (Coreg) 12.5 mg PO Q12H [facility] Last Admin: 02/25/19 05:23 Dose: 12.5 mg Clonidine HCl (Catapres) 0.2 mg PO BID [facility] Last Admin: 02/25/19 08:44 Dose: 0.2 mg Doxercalciferol (Hectorol) 4 mcg IV TTS [facility] Last Admin: 02/24/19 12:22 Dose: 4 mcg Epoetin Destin (Procrit) 20,000 unit SC TTS [facility] Last Admin: 02/24/19 12:22 Dose: 20,000 unit Hydralazine HCl (Apresoline) 50 mg PO TID [facility] Last Admin: 02/25/19 12:37 Dose: 50 mg Iron Sucrose 100 mg/ Sodium (Chloride) 105 mls @ 105 mls/hr IVPB TTS [facility] Stop: 02/27/19 09:59 Last Admin: 02/24/19 09:30 Dose: 105 mls/hr Sevelamer HCl (Renagel) 1,600 mg PO TID [facility] Last Admin: 02/25/19 12:37 Dose: 1,600 mg - Labs Labs: 02/25/19 06:00 02/25/19 06:00 PT 13.8 Seconds (9.8-13.1) H 02/03/19 18:17 INR 1.2 02/03/19 18:17 APTT 52.3 Seconds (25.6-37.1) H 02/03/19 18:17 - Head Exam Head Exam: ATRAUMATIC, NORMOCEPHALIC - Eye Exam Eye Exam: Normal appearance - ENT Exam ENT Exam: Mucous Membranes Moist - Neck Exam Neck Exam: Full ROM - Respiratory Exam Respiratory Exam: NORMAL BREATHING PATTERN Additional comments: Lungs clear - Cardiovascular Exam Cardiovascular Exam: REGULAR RHYTHM - GI/Abdominal Exam GI & Abdominal Exam: Soft - Back Exam Additional comments: No edema Assessment and Plan - Assessment and Plan (Free Text) Assessment: ESRD on HD TTS Anemia Hb is improved HTN BP is controlled Dilated Lt atrium & mild MR Plan: Continue HD per schedule Still on venofer
--- NOTE | 2019-02-26 08:19 | CP.PCM.PN ---
<Cady Lees - Last Filed: 02/26/19 09:19> Subjective - Date & Time of Evaluation Date of Evaluation: 02/26/19 Time of Evaluation: 09:00 - Subjective Subjective: Patient seen and examined at bedside. Has no complaints. No overnight events. Denies chest pain, dypsnea, nausea, vomiting, abdominal pain, dysuria, frequency or urgency. Reports good appetite. Objective - Vital Signs/Intake and Output Vital Signs (last 24 hours): Temp Pulse Resp BP Pulse Ox 97.5 F L 59 L 20 141/78 98 02/26/19 07:35 02/26/19 07:35 02/26/19 07:35 02/26/19 07:35 02/26/19 07:35 - Medications Medications: Current Medications Bacitracin (Bacitracin Oint) 1 applic TOP TID [facility] Carvedilol (Coreg) 12.5 mg PO Q12H [facility] Last Admin: 02/26/19 04:55 Dose: 12.5 mg Clonidine HCl (Catapres) 0.2 mg PO BID [facility] Last Admin: 02/25/19 16:34 Dose: 0.2 mg Doxercalciferol (Hectorol) 4 mcg IV TTS [facility] Last Admin: 02/24/19 12:22 Dose: 4 mcg Epoetin Destin (Procrit) 20,000 unit SC TTS [facility] Last Admin: 02/24/19 12:22 Dose: 20,000 unit Hydralazine HCl (Apresoline) 50 mg PO TID [facility] Last Admin: 02/25/19 16:34 Dose: 50 mg Iron Sucrose 100 mg/ Sodium (Chloride) 105 mls @ 105 mls/hr IVPB TTS [facility] Stop: 02/27/19 09:59 Last Admin: 02/24/19 09:30 Dose: 105 mls/hr Sevelamer HCl (Renagel) 1,600 mg PO TID [facility] Last Admin: 02/25/19 16:35 Dose: 1,600 mg - Labs Labs: 02/25/19 06:00 02/25/19 06:00 PT 13.8 Seconds (9.8-13.1) H 02/03/19 18:17 INR 1.2 02/03/19 18:17 APTT 52.3 Seconds (25.6-37.1) H 02/03/19 18:17 - Constitutional Appears: Well, Non-toxic, No Acute Distress - Eye Exam Eye Exam: Normal appearance - ENT Exam ENT Exam: Mucous Membranes Moist - Respiratory Exam Respiratory Exam: Clear to Ausculation Bilateral, NORMAL BREATHING PATTERN - Cardiovascular Exam Cardiovascular Exam: REGULAR RHYTHM, +S1, +S2 - GI/Abdominal Exam GI & Abdominal Exam: Soft, Normal Bowel Sounds. absent: Distended, Firm, Rigid, Tenderness, Mass, Rebound - Extremities Exam Extremities Exam: Normal Capillary Refill, Normal Inspection - Back Exam Back Exam: NORMAL INSPECTION - Neurological Exam Neurological Exam: Alert, Awake, Oriented x3 - Psychiatric Exam Psychiatric exam: Normal Affect, Normal Mood - Skin Skin Exam: Dry, Intact, Normal Color, Warm Assessment and Plan - Assessment and Plan (Free Text) Assessment: 33 y/o male with PMH ESRD on HD not compliant, off HD for 2 months , presented to ER with hypertensive urgency, Metabolic acidosis secondary to ESRD , Fluid overload and anemia of chronic disease He was started back on HD and BP meds and at present doing well, waiting for HD spot in community Continue HD as scheduled TThS Plan: 1. ESRD on HD - c/w TIW Hemodialysis TThS ( pt has right chest Permacath) - awaiting outpt HD placement - Pt has an AV shunt placed on the left arm - done in [facility] , has not yet matured -c/w Hectorol 2. Hypertensive Emergency/HTN - initially started on IV antihypertensives on admission - c/w Hydralazine and Coreg - Increased to Clonidine to 0.2 mg bid, now better controlled 3. UTI- Enterococcus - completed treatment 4. Anemia of Chronic Renal Dis -cont Epogen and Venofer after HD 5. DVT prophylaxis SCD's <Barby Hernández - Last Filed: 02/26/19 10:10> Objective - Vital Signs/Intake and Output Vital Signs (last 24 hours): Temp Pulse Resp BP Pulse Ox 97.5 F L 60 20 140/71 98 02/26/19 07:35 02/26/19 08:29 02/26/19 07:35 02/26/19 08:29 02/26/19 07:35 - Medications Medications: Current Medications Bacitracin (Bacitracin Oint) 1 applic TOP TID [facility] Last Admin: 02/26/19 08:29 Dose: 1 applic Carvedilol (Coreg) 12.5 mg PO Q12H [facility] Last Admin: 02/26/19 04:55 Dose: 12.5 mg Clonidine HCl (Catapres) 0.2 mg PO BID [facility] Last Admin: 02/26/19 08:29 Dose: 0.2 mg Doxercalciferol (Hectorol) 4 mcg IV TTS [facility] Last Admin: 02/24/19 12:22 Dose: 4 mcg Epoetin Destin (Procrit) 20,000 unit SC TTS [facility] Last Admin: 02/24/19 12:22 Dose: 20,000 unit Hydralazine HCl (Apresoline) 50 mg PO TID [facility] Last Admin: 02/26/19 08:29 Dose: 50 mg Iron Sucrose 100 mg/ Sodium (Chloride) 105 mls @ 105 mls/hr IVPB TTS [facility] Stop: 02/27/19 09:59 Last Admin: 02/24/19 09:30 Dose: 105 mls/hr Sevelamer Carbonate (Renvela) 1,600 mg PO TID [facility] - Labs Labs: 02/25/19 06:00 02/25/19 06:00 PT 13.8 Seconds (9.8-13.1) H 02/03/19 18:17 INR 1.2 02/03/19 18:17 APTT 52.3 Seconds (25.6-37.1) H 02/03/19 18:17 Attending/Attestation - Attestation I have personally seen and examined this patient.: Yes I have fully participated in the care of the patient.: Yes I have reviewed all pertinent clinical information, including history, physical exam and plan: Yes Notes (Text): 02/26/19 10:09 agree with findings and plan as above. awaiting HD placement stable no changes
[2019-02-26] MEDS: Bacitracin OINT 15GM TOP SCH ×3 (08:29→17:13)
[2019-02-27] MEDS: Bacitracin OINT 15GM TOP SCH ×3 (08:54→16:16)
--- NOTE | 2019-02-27 09:50 | CP.PCM.PN ---
<Cady Lees - Last Filed: 02/27/19 10:35> Subjective - Date & Time of Evaluation Date of Evaluation: 02/27/19 Time of Evaluation: 09:50 - Subjective Subjective: Patient seen and examined at bedside. Reports feeling well and has no complaints. Denies chest pain, shortness of breath, nausea, vomiting, abdominal pain, urinary symptoms. No acute overnight events. Objective - Vital Signs/Intake and Output Vital Signs (last 24 hours): Temp Pulse Resp BP Pulse Ox 97.6 F 65 20 142/79 98 02/27/19 08:04 02/27/19 08:54 02/27/19 08:04 02/27/19 08:54 02/27/19 08:04 - Medications Medications: Current Medications Bacitracin (Bacitracin Oint) 1 applic TOP TID [facility] Last Admin: 02/27/19 08:54 Dose: 1 applic Carvedilol (Coreg) 12.5 mg PO Q12H [facility] Last Admin: 02/27/19 04:40 Dose: 12.5 mg Clonidine HCl (Catapres) 0.2 mg PO BID [facility] Last Admin: 02/27/19 08:54 Dose: 0.2 mg Doxercalciferol (Hectorol) 4 mcg IV TTS [facility] Last Admin: 02/24/19 12:22 Dose: 4 mcg Epoetin Destin (Procrit) 20,000 unit SC TTS [facility] Last Admin: 02/24/19 12:22 Dose: 20,000 unit Hydralazine HCl (Apresoline) 50 mg PO TID [facility] Last Admin: 02/27/19 08:53 Dose: 50 mg Iron Sucrose 100 mg/ Sodium (Chloride) 105 mls @ 105 mls/hr IVPB TTS [facility] Stop: 02/27/19 09:59 Last Admin: 02/27/19 09:01 Dose: 105 mls/hr Sevelamer Carbonate (Renvela) 1,600 mg PO TID [facility] Last Admin: 02/27/19 08:53 Dose: 1,600 mg - Labs Labs: 02/25/19 06:00 02/25/19 06:00 PT 13.8 Seconds (9.8-13.1) H 02/03/19 18:17 INR 1.2 02/03/19 18:17 APTT 52.3 Seconds (25.6-37.1) H 02/03/19 18:17 - Constitutional Appears: Well, Non-toxic, No Acute Distress - Eye Exam Eye Exam: Normal appearance - ENT Exam ENT Exam: Mucous Membranes Moist - Respiratory Exam Respiratory Exam: Clear to Ausculation Bilateral, NORMAL BREATHING PATTERN - Cardiovascular Exam Cardiovascular Exam: REGULAR RHYTHM, +S1, +S2 - GI/Abdominal Exam GI & Abdominal Exam: Soft, Normal Bowel Sounds. absent: Distended, Firm, Guarding, Rigid, Tenderness, Rebound - Extremities Exam Extremities Exam: Full ROM, Normal Capillary Refill. absent: Calf Tenderness, J oint Swelling, Pedal Edema - Back Exam Back Exam: NORMAL INSPECTION - Neurological Exam Neurological Exam: Alert, Awake, Oriented x3 - Psychiatric Exam Psychiatric exam: Normal Affect, Normal Mood - Skin Skin Exam: Dry, Intact, Warm Assessment and Plan - Assessment and Plan (Free Text) Assessment: 33 y/o male with PMH ESRD on HD not compliant, off HD for 2 months , presented to ER with hypertensive urgency, Metabolic acidosis secondary to ESRD , Fluid overload and anemia of chronic disease He was started back on HD and BP meds and at present doing well, waiting for HD spot in community Continue HD as scheduled TThS Plan: 1. ESRD on HD - c/w TIW Hemodialysis TThS ( pt has right chest Permacath) - awaiting outpt HD placement - Pt has an AV shunt placed on the left arm - done in [facility] , has not yet matured -c/w Hectorol 2. Hypertensive Emergency/HTN - initially started on IV antihypertensives on admission - c/w Hydralazine and Coreg - Increased to Clonidine to 0.2 mg bid, now better controlled 3. UTI- Enterococcus - completed treatment 4. Anemia of Chronic Renal Dis -cont Epogen and Venofer after HD 5. DVT prophylaxis SCD's <Barby Hernández - Last Filed: 02/27/19 11:13> Objective - Vital Signs/Intake and Output Vital Signs (last 24 hours): Temp Pulse Resp BP Pulse Ox 97.6 F 65 20 142/79 98 02/27/19 08:04 02/27/19 08:54 02/27/19 08:04 02/27/19 08:54 02/27/19 08:04 - Medications Medications: Current Medications Bacitracin (Bacitracin Oint) 1 applic TOP TID [facility] Last Admin: 02/27/19 08:54 Dose: 1 applic Carvedilol (Coreg) 12.5 mg PO Q12H [facility] Last Admin: 02/27/19 04:40 Dose: 12.5 mg Clonidine HCl (Catapres) 0.2 mg PO BID [facility] Last Admin: 02/27/19 08:54 Dose: 0.2 mg Doxercalciferol (Hectorol) 4 mcg IV TTS [facility] Last Admin: 02/24/19 12:22 Dose: 4 mcg Epoetin Destin (Procrit) 20,000 unit SC TTS [facility] Last Admin: 02/24/19 12:22 Dose: 20,000 unit Hydralazine HCl (Apresoline) 50 mg PO TID [facility] Last Admin: 02/27/19 08:53 Dose: 50 mg Sevelamer Carbonate (Renvela) 1,600 mg PO TID [facility] Last Admin: 02/27/19 08:53 Dose: 1,600 mg - Labs Labs: 02/25/19 06:00 02/25/19 06:00 PT 13.8 Seconds (9.8-13.1) H 02/03/19 18:17 INR 1.2 02/03/19 18:17 APTT 52.3 Seconds (25.6-37.1) H 02/03/19 18:17 Attending/Attestation - Attestation I have personally seen and examined this patient.: Yes I have fully participated in the care of the patient.: Yes I have reviewed all pertinent clinical information, including history, physical exam and plan: Yes Notes (Text): 02/27/19 11:13 33-year-old male with ESRD currently awaiting HD placement. Agree with findings and plan as above. No current changes in management.
--- NOTE | 2019-02-27 13:34 | CP.PCM.PN ---
Subjective - Date & Time of Evaluation Date of Evaluation: 02/27/19 Time of Evaluation: 12:00 - Subjective Subjective: No complaints Appears comfortable Objective - Vital Signs/Intake and Output Vital Signs (last 24 hours): Temp Pulse Resp BP Pulse Ox 97.6 F 85 20 162/75 H 98 02/27/19 08:04 02/27/19 13:01 02/27/19 08:04 02/27/19 13:01 02/27/19 08:04 - Medications Medications: Current Medications Bacitracin (Bacitracin Oint) 1 applic TOP TID [facility] Last Admin: 02/27/19 13:02 Dose: 1 applic Carvedilol (Coreg) 12.5 mg PO Q12H [facility] Last Admin: 02/27/19 04:40 Dose: 12.5 mg Clonidine HCl (Catapres) 0.2 mg PO BID [facility] Last Admin: 02/27/19 08:54 Dose: 0.2 mg Doxercalciferol (Hectorol) 4 mcg IV TTS [facility] Last Admin: 02/24/19 12:22 Dose: 4 mcg Epoetin Destin (Procrit) 20,000 unit SC TTS [facility] Last Admin: 02/24/19 12:22 Dose: 20,000 unit Hydralazine HCl (Apresoline) 50 mg PO TID [facility] Last Admin: 02/27/19 13:01 Dose: 50 mg Sevelamer Carbonate (Renvela) 1,600 mg PO TID [facility] Last Admin: 02/27/19 12:52 Dose: 1,600 mg - Labs Labs: 02/25/19 06:00 02/25/19 06:00 PT 13.8 Seconds (9.8-13.1) H 02/03/19 18:17 INR 1.2 02/03/19 18:17 APTT 52.3 Seconds (25.6-37.1) H 02/03/19 18:17 - Constitutional Appears: No Acute Distress - Head Exam Head Exam: ATRAUMATIC, NORMOCEPHALIC - Eye Exam Eye Exam: Normal appearance - ENT Exam ENT Exam: Mucous Membranes Moist - Respiratory Exam Respiratory Exam: NORMAL BREATHING PATTERN Additional comments: Lungs clear - Cardiovascular Exam Cardiovascular Exam: REGULAR RHYTHM - GI/Abdominal Exam GI & Abdominal Exam: Soft - Extremities Exam Additional comments: No edema + bruit over AVF Assessment and Plan - Assessment and Plan (Free Text) Assessment: ESRD on HD TTS HTN Anemia Plan: For dialysis today/ Tolerating dialysis treatments well Continue current care. Decrease Epogen dose. On Venofer with improvement of Hb.
[2019-02-27] MEDS: Doxercalciferol 4 mcg/2 ml Inj IV SCH (20:05)
[2019-02-27] MEDS: Epoetin Alfa 20000 UNIT/ML (RENAL DOSE) SC SCH (20:06)
--- NOTE | 2019-02-28 09:24 | CP.PCM.PN ---
<Cady Lees - Last Filed: 02/28/19 10:33> Subjective - Date & Time of Evaluation Date of Evaluation: 02/28/19 Time of Evaluation: 09:15 - Subjective Subjective: Patient seen and examined at bedside. Denies any active complaints. Reports feeling well. Good appetite and daily BM. Denies chest pain, shortness of breath, nausea, vomiting, abdominal pain. No acute overnight events. Objective - Vital Signs/Intake and Output Vital Signs (last 24 hours): Temp Pulse Resp BP Pulse Ox 97.7 F 78 18 140/79 98 02/28/19 08:45 02/28/19 08:45 02/28/19 08:45 02/28/19 08:45 02/28/19 08:45 - Medications Medications: Current Medications Bacitracin (Bacitracin Oint) 1 applic TOP TID [facility] Last Admin: 02/27/19 16:16 Dose: 1 applic Carvedilol (Coreg) 12.5 mg PO Q12H [facility] Last Admin: 02/28/19 04:01 Dose: 12.5 mg Clonidine HCl (Catapres) 0.2 mg PO BID [facility] Last Admin: 02/27/19 16:17 Dose: 0.2 mg Doxercalciferol (Hectorol) 4 mcg IV TTS [facility] Last Admin: 02/27/19 20:05 Dose: 4 mcg Epoetin Destin (Procrit) 20,000 unit SC TTS [facility] Last Admin: 02/27/19 20:06 Dose: 20,000 unit Hydralazine HCl (Apresoline) 50 mg PO TID [facility] Last Admin: 02/27/19 16:16 Dose: 50 mg Sevelamer Carbonate (Renvela) 1,600 mg PO TID [facility] Last Admin: 02/27/19 16:18 Dose: 1,600 mg - Labs Labs: 02/25/19 06:00 02/25/19 06:00 PT 13.8 Seconds (9.8-13.1) H 02/03/19 18:17 INR 1.2 02/03/19 18:17 APTT 52.3 Seconds (25.6-37.1) H 02/03/19 18:17 - Constitutional Appears: Non-toxic, No Acute Distress - Eye Exam Eye Exam: Normal appearance - ENT Exam ENT Exam: Mucous Membranes Moist - Respiratory Exam Respiratory Exam: Clear to Ausculation Bilateral, NORMAL BREATHING PATTERN. absent: Accessory Muscle Use, Chest Wall Tenderness, Decreased Breath Sounds, Prolonged Expiratory Phase, Rales, Rhonchi, Wheezes, Respiratory Distress, Stridor - Cardiovascular Exam Cardiovascular Exam: REGULAR RHYTHM, +S1, +S2, Murmur - GI/Abdominal Exam GI & Abdominal Exam: Soft, Normal Bowel Sounds. absent: Distended, Firm, Guarding, Rigid, Tenderness, Rebound - Extremities Exam Extremities Exam: Full ROM, Normal Capillary Refill, Normal Inspection. absent: Calf Tenderness, Pedal Edema, Tenderness - Back Exam Back Exam: NORMAL INSPECTION - Neurological Exam Neurological Exam: Alert, Awake, Oriented x3 - Psychiatric Exam Psychiatric exam: Normal Affect, Normal Mood - Skin Skin Exam: Dry, Intact, Normal Color, Warm Assessment and Plan - Assessment and Plan (Free Text) Assessment: 33 y/o male with PMH ESRD on HD not compliant, off HD for 2 months , presented to ER with hypertensive urgency, Metabolic acidosis secondary to ESRD , Fluid overload and anemia of chronic disease He was started back on HD and BP meds and at present doing well, waiting for HD spot in community Continue HD as scheduled TThS Plan: 1. ESRD on HD - c/w TIW Hemodialysis TThS ( pt has right chest Permacath) - awaiting outpt HD placement - Pt has an AV shunt placed on the left arm - done in [facility] , has not yet matured -c/w Hectorol 2. Hypertensive Emergency/HTN - initially started on IV antihypertensives on admission - c/w Hydralazine and Coreg - Increased to Clonidine to 0.2 mg bid, now better controlled 3. UTI- Enterococcus - completed treatment 4. Anemia of Chronic Renal Dis -cont Epogen and Venofer after HD 5. DVT prophylaxis SCD's <Eden Mai - Last Filed: 02/28/19 14:53> Objective - Vital Signs/Intake and Output Vital Signs (last 24 hours): Temp Pulse Resp BP Pulse Ox 97.7 F 78 18 140/79 98 02/28/19 08:45 02/28/19 09:48 02/28/19 08:45 02/28/19 09:48 02/28/19 08:45 - Medications Medications: Current Medications Bacitracin (Bacitracin Oint) 1 applic TOP TID [facility] Last Admin: 02/28/19 09:49 Dose: 1 applic Carvedilol (Coreg) 12.5 mg PO Q12H [facility] Last Admin: 02/28/19 04:01 Dose: 12.5 mg Clonidine HCl (Catapres) 0.2 mg PO BID [facility] Last Admin: 02/28/19 09:48 Dose: 0.2 mg Doxercalciferol (Hectorol) 4 mcg IV TTS [facility] Last Admin: 02/27/19 20:05 Dose: 4 mcg Epoetin Destin (Procrit) 20,000 unit SC TTS [facility] Last Admin: 02/27/19 20:06 Dose: 20,000 unit Hydralazine HCl (Apresoline) 50 mg PO TID [facility] Last Admin: 02/28/19 09:46 Dose: 50 mg Sevelamer Carbonate (Renvela) 1,600 mg PO TID [facility] Last Admin: 02/28/19 09:47 Dose: 1,600 mg - Labs Labs: 02/25/19 06:00 02/25/19 06:00 PT 13.8 Seconds (9.8-13.1) H 02/03/19 18:17 INR 1.2 02/03/19 18:17 APTT 52.3 Seconds (25.6-37.1) H 02/03/19 18:17 Attending/Attestation - Attestation I have personally seen and examined this patient.: Yes I have fully participated in the care of the patient.: Yes I have reviewed all pertinent clinical information, including history, physical exam and plan: Yes Notes (Text): 1. ESRD on HD - cont TIW Hemodialysis TThS ( pt has right chest Permacath) - awaiting outpt HD placement - Pt has an AV shunt placed on the left arm - done in [facility] , has not yet matured -cont Hectorol and Renvela 2. Hypertensive Emergency/HTN - initially started on IV antihypertensives on admission - cont Hydralazine, Clonidine and Coreg 3. UTI- Enterococcus - completed treatment 4. Anemia of Chronic Renal Dis -cont Epogen and Venofer after HD
[2019-02-28] MEDS: Bacitracin OINT 15GM TOP SCH ×3 (09:49→18:45)
[2019-03-01] MEDS: Bacitracin OINT 15GM TOP SCH ×3 (08:31→16:25)
--- NOTE | 2019-03-01 08:46 | CP.PCM.PN ---
<Cady Lees - Last Filed: 03/01/19 09:15> Subjective - Date & Time of Evaluation Date of Evaluation: 03/01/19 Time of Evaluation: 08:40 - Subjective Subjective: Patient seen and examined at bedside. No complaints. No acute overnight events. Denies chest pain, dypsnea, nause, vomiting, abdominal pain or urinary symptoms. Reports good appetite and daily BM. Objective - Vital Signs/Intake and Output Vital Signs (last 24 hours): Temp Pulse Resp BP Pulse Ox 97.9 F 61 20 154/82 H 99 03/01/19 08:40 03/01/19 08:40 03/01/19 08:40 03/01/19 08:40 03/01/19 08:40 - Medications Medications: Current Medications Bacitracin (Bacitracin Oint) [address] [facility] Last Admin: 03/01/19 08:31 Dose: 1 applic Carvedilol (Coreg) 12.[address] [facility] Last Admin: 03/01/19 05:13 Dose: 12.5 mg Clonidine HCl (Catapres) 0.[address] [facility] Last Admin: 03/01/19 08:31 Dose: 0.2 mg Doxercalciferol (Hectorol) [address] [facility] Last Admin: 02/27/19 20:05 Dose: 4 mcg Epoetin Destin (Procrit) 20,[address] [facility] Last Admin: 02/27/19 20:06 Dose: 20,000 unit Hydralazine HCl (Apresoline) [address] [facility] Last Admin: 03/01/19 08:32 Dose: 50 mg Sevelamer Carbonate (Renvela) 1,[address] [facility] Last Admin: 03/01/19 08:31 Dose: 1,600 mg - Labs Labs: 02/25/19 06:00 02/25/19 06:00 PT 13.8 Seconds (9.8-13.1) H 02/03/19 18:17 INR 1.2 02/03/19 18:17 APTT 52.3 Seconds (25.6-37.1) H 02/03/19 18:17 - Constitutional Appears: Well, Non-toxic, No Acute Distress - Eye Exam Eye Exam: Normal appearance - ENT Exam ENT Exam: Mucous Membranes Moist - Respiratory Exam Respiratory Exam: Clear to Ausculation Bilateral, NORMAL BREATHING PATTERN. absent: Accessory Muscle Use, Chest Wall Tenderness, Decreased Breath Sounds, Prolonged Expiratory Phase, Rales, Rhonchi, Wheezes, Respiratory Distress, Stri velasquez - Cardiovascular Exam Cardiovascular Exam: REGULAR RHYTHM, +S1, +S2, Murmur - GI/Abdominal Exam GI & Abdominal Exam: Soft, Normal Bowel Sounds. absent: Distended, Firm, Guarding, Rigid, Tenderness, Mass, Rebound - Extremities Exam Extremities Exam: Full ROM, Normal Capillary Refill, Normal Inspection. absent: Calf Tenderness, Joint Swelling, Pedal Edema, Tenderness - Back Exam Back Exam: NORMAL INSPECTION - Neurological Exam Neurological Exam: Alert, Awake, Oriented x3 - Psychiatric Exam Psychiatric exam: Normal Affect, Normal Mood - Skin Skin Exam: Dry, Intact, Normal Color, Warm Assessment and Plan - Assessment and Plan (Free Text) Assessment: 33 y/o male with PMH ESRD on HD not compliant, off HD for 2 months , presented to ER with hypertensive urgency, Metabolic acidosis secondary to ESRD , Fluid overload and anemia of chronic disease He was started back on HD and BP meds and at present doing well, waiting for HD spot in the community. Continue HD as scheduled TThS Plan: 1. ESRD on HD - c/w TIW Hemodialysis TThS ( pt has right chest Permacath) - awaiting outpt HD placement - Pt has an AV shunt placed on the left arm - done in [facility] , has not yet matured -c/w Hectorol 2. Hypertensive Emergency/HTN - initially started on IV antihypertensives on admission - c/w Hydralazine and Coreg - Increased to Clonidine to 0.2 mg bid, now better controlled 3. UTI- Enterococcus - completed treatment 4. Anemia of Chronic Renal Dis -cont Epogen and Venofer after HD 5. DVT prophylaxis SCD's <Barby Hernández - Last Filed: 03/02/19 21:30> Objective - Vital Signs/Intake and Output Vital Signs (last 24 hours): Temp Pulse Resp BP Pulse Ox 98 F 57 L 20 144/81 97 03/02/19 17:00 03/02/19 17:00 03/02/19 17:00 03/02/19 17:00 03/02/19 17:00 - Medications Medications: Current Medications Bacitracin (Bacitracin Oint) 1 applic TOP TID [facility] Last Admin: 03/02/19 16:58 Dose: 1 applic Carvedilol (Coreg) 12.[address] [facility] Last Admin: 03/02/19 16:59 Dose: 12.5 mg Clonidine HCl (Catapres) 0.[address] [facility] Last Admin: 03/02/19 16:58 Dose: 0.2 mg Doxercalciferol (Hectorol) [address] [facility] Last Admin: 03/01/19 18:36 Dose: 4 mcg Epoetin Destin (Procrit) 4,[address] [facility] Hydralazine HCl (Apresoline) [address] [facility] Last Admin: 03/02/19 16:58 Dose: 50 mg Sevelamer Carbonate (Renvela) 1,[address] [facility] Last Admin: 03/02/19 16:59 Dose: 1,600 mg - Labs Labs: 02/25/19 06:00 02/25/19 06:00 PT 13.8 Seconds (9.8-13.1) H 02/03/19 18:17 INR 1.2 02/03/19 18:17 APTT 52.3 Seconds (25.6-37.1) H 02/03/19 18:17 Attending/Attestation - Attestation I have personally seen and examined this patient.: Yes I have fully participated in the care of the patient.: Yes I have reviewed all pertinent clinical information, including history, physical exam and plan: Yes Notes (Text): agree with findings and plan as above.
--- NOTE | 2019-03-01 12:57 | CP.PCM.PN ---
Subjective - Date & Time of Evaluation Date of Evaluation: 03/01/19 Time of Evaluation: 12:25 - Subjective Subjective: Feels OK Eating well Objective - Vital Signs/Intake and Output Vital Signs (last 24 hours): Temp Pulse Resp BP Pulse Ox 97.9 F 61 20 154/82 H 99 03/01/19 08:40 03/01/19 08:40 03/01/19 08:40 03/01/19 08:40 03/01/19 08:40 - Medications Medications: Current Medications Bacitracin (Bacitracin Oint) 1 applic TOP TID [facility] Last Admin: 03/01/19 12:17 Dose: 1 applic Carvedilol (Coreg) 12.5 mg PO Q12H [facility] Last Admin: 03/01/19 05:13 Dose: 12.5 mg Clonidine HCl (Catapres) 0.2 mg PO BID [facility] Last Admin: 03/01/19 08:31 Dose: 0.2 mg Doxercalciferol (Hectorol) 4 mcg IV TTS [facility] Last Admin: 02/27/19 20:05 Dose: 4 mcg Epoetin Destin (Procrit) 20,000 unit SC TTS [facility] Last Admin: 02/27/19 20:06 Dose: 20,000 unit Hydralazine HCl (Apresoline) 50 mg PO TID [facility] Last Admin: 03/01/19 08:32 Dose: 50 mg Sevelamer Carbonate (Renvela) 1,600 mg PO TID [facility] Last Admin: 03/01/19 12:17 Dose: 1,600 mg - Labs Labs: 02/25/19 06:00 02/25/19 06:00 PT 13.8 Seconds (9.8-13.1) H 02/03/19 18:17 INR 1.2 02/03/19 18:17 APTT 52.3 Seconds (25.6-37.1) H 02/03/19 18:17 - Constitutional Appears: No Acute Distress - Head Exam Head Exam: ATRAUMATIC, NORMOCEPHALIC - Eye Exam Eye Exam: Normal appearance - ENT Exam ENT Exam: Mucous Membranes Moist - Neck Exam Additional comments: Neck supple - Respiratory Exam Respiratory Exam: NORMAL BREATHING PATTERN Additional comments: Lungs clear - Cardiovascular Exam Cardiovascular Exam: REGULAR RHYTHM Additional comments: No rub - GI/Abdominal Exam GI & Abdominal Exam: Soft - Extremities Exam Additional comments: No ECC Good bruit over Lt arm AVF Assessment and Plan - Assessment and Plan (Free Text) Assessment: ESRD o HD TTS HTN controlled Anemia Hb is improved Suggest to decrease Epogen dose. High doses can cause thrombosis of AVF Plan: For dialysis today D/C heplock unless needed for Abx
[2019-03-01] MEDS: Doxercalciferol 4 mcg/2 ml Inj IV SCH (18:36)
[2019-03-01] MEDS: Epoetin Alfa 20000 UNIT/ML (RENAL DOSE) SC SCH (18:37)
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
[2019-03-02] MEDS: Bacitracin OINT 15GM TOP SCH ×3 (09:26→16:58)
[2019-03-03] MEDS ORDERED: Epoetin Alfa 4000 UNIT/ML Inj IV SCH (09:00)
[2019-03-03] MEDS: Bacitracin OINT 15GM TOP SCH ×3 (09:56→17:26)
--- NOTE | 2019-03-03 11:00 | CP.PCM.PN ---
Subjective - Date & Time of Evaluation Date of Evaluation: 03/03/19 Time of Evaluation: 09:15 - Subjective Subjective: No fever Scheduled for HD today no CP no SOB no abd pain Objective - Vital Signs/Intake and Output Vital Signs (last 24 hours): Temp Pulse Resp BP Pulse Ox 97.5 F L 65 20 155/83 H 99 03/03/19 08:04 03/03/19 09:56 03/03/19 08:04 03/03/19 09:56 03/03/19 08:04 - Medications Medications: Current Medications Bacitracin (Bacitracin Oint) 1 applic TOP TID [facility] Last Admin: 03/03/19 09:56 Dose: 1 applic Carvedilol (Coreg) 12.5 mg PO Q12H [facility] Last Admin: 03/03/19 05:54 Dose: 12.5 mg Clonidine HCl (Catapres) 0.2 mg PO BID [facility] Last Admin: 03/03/19 09:56 Dose: 0.2 mg Doxercalciferol (Hectorol) 4 mcg IV TTS [facility] Last Admin: 03/01/19 18:36 Dose: 4 mcg Epoetin Destin (Procrit) 4,000 unit IV TTS [facility] Hydralazine HCl (Apresoline) 50 mg PO TID [facility] Last Admin: 03/03/19 09:56 Dose: 50 mg Sevelamer Carbonate (Renvela) 1,600 mg PO TID [facility] Last Admin: 03/03/19 09:57 Dose: 1,600 mg - Labs Labs: 02/25/19 06:00 02/25/19 06:00 PT 13.8 Seconds (9.8-13.1) H 02/03/19 18:17 INR 1.2 02/03/19 18:17 APTT 52.3 Seconds (25.6-37.1) H 02/03/19 18:17 - Constitutional Appears: No Acute Distress - Head Exam Head Exam: NORMAL INSPECTION, NORMOCEPHALIC - Eye Exam Eye Exam: EOMI, Normal appearance, PERRL Pupil Exam: NORMAL ACCOMODATION - ENT Exam ENT Exam: Mucous Membranes Moist, Normal External Ear Exam - Neck Exam Neck Exam: Full ROM. absent: Meningismus - Respiratory Exam Respiratory Exam: NORMAL BREATHING PATTERN. absent: Respiratory Distress - Cardiovascular Exam Cardiovascular Exam: REGULAR RHYTHM, +S1, +S2 Additional comments: right chest HD catheter - GI/Abdominal Exam GI & Abdominal Exam: Soft, Normal Bowel Sounds. absent: Tenderness - Extremities Exam Extremities Exam: Full ROM, Normal Capillary Refill. absent: Calf Tenderness, Pedal Edema Additional comments: Left antecubital area AV shunt , + bruit - Back Exam Back Exam: Full ROM. absent: CVA tenderness (L), CVA tenderness (R) - Neurological Exam Neurological Exam: Alert, Awake, CN II-XII Intact, Normal Gait, Oriented x3 Neuro motor strength exam: Left Upper Extremity: 5, Right Upper Extremity: 5, Left Lower Extremity: 5, Right Lower Extremity: 5 - Psychiatric Exam Psychiatric exam: Normal Affect, Normal Mood - Skin Skin Exam: Dry, Normal Color, Warm Assessment and Plan - Assessment and Plan (Free Text) Plan: 1. ESRD on HD - cont TIW Hemodialysis TThS ( pt has right chest Permacath) - awaiting outpt HD placement - Pt has an AV shunt placed on the left arm - done in [facility] , has not yet matured -cont Hectorol 2. Hypertensive Emergency/HTN - initially started on IV antihypertensives on admission - cont Hydralazine and Coreg, Clonidine - now better controlled 3. UTI- Enterococcus - completed treatment 4. Anemia of Chronic Renal Dis -cont Epogen and Venofer after HD
--- NOTE | 2019-03-03 14:16 | CP.PCM.PN ---
Subjective - Date & Time of Evaluation Date of Evaluation: 03/03/19 Time of Evaluation: 01:50 - Subjective Subjective: Currently on dialysis. Pt states that some times he feels weak after dialysis. No cramps. Objective - Vital Signs/Intake and Output Vital Signs (last 24 hours): Temp Pulse Resp BP Pulse Ox 97.5 F L 65 20 155/83 H 99 03/03/19 08:04 03/03/19 09:56 03/03/19 08:04 03/03/19 09:56 03/03/19 08:04 - Medications Medications: Current Medications Bacitracin (Bacitracin Oint) 1 applic TOP TID [facility] Last Admin: 03/03/19 12:58 Dose: 1 applic Carvedilol (Coreg) 12.5 mg PO Q12H [facility] Last Admin: 03/03/19 05:54 Dose: 12.5 mg Clonidine HCl (Catapres) 0.2 mg PO BID [facility] Last Admin: 03/03/19 09:56 Dose: 0.2 mg Doxercalciferol (Hectorol) 4 mcg IV TTS [facility] Last Admin: 03/01/19 18:36 Dose: 4 mcg Epoetin Destin (Procrit) 4,000 unit IV TTS [facility] Hydralazine HCl (Apresoline) 50 mg PO TID [facility] Last Admin: 03/03/19 12:57 Dose: Not Given Sevelamer Carbonate (Renvela) 1,600 mg PO TID [facility] Last Admin: 03/03/19 12:58 Dose: Not Given - Labs Labs: 02/25/19 06:00 02/25/19 06:00 PT 13.8 Seconds (9.8-13.1) H 02/03/19 18:17 INR 1.2 02/03/19 18:17 APTT 52.3 Seconds (25.6-37.1) H 02/03/19 18:17 - Constitutional Appears: No Acute Distress - Head Exam Head Exam: ATRAUMATIC, NORMOCEPHALIC - Eye Exam Eye Exam: Normal appearance - ENT Exam ENT Exam: Mucous Membranes Moist - Neck Exam Additional comments: supple - Respiratory Exam Respiratory Exam: NORMAL BREATHING PATTERN Additional comments: Lungs clear - Cardiovascular Exam Cardiovascular Exam: REGULAR RHYTHM - Extremities Exam Additional comments: No edema + bruit over Lt arm AVF Assessment and Plan - Assessment and Plan (Free Text) Assessment: ESRD on HD HTN BP is controlled Anemia Plan: Will decrease UF with dialysis Predialysis labs with next dialysis.
[2019-03-03] MEDS: Doxercalciferol 4 mcg/2 ml Inj IV SCH (14:48)
[2019-03-04] MEDS: Bacitracin OINT 15GM TOP SCH ×3 (08:44→16:23)
--- NOTE | 2019-03-04 08:49 | CP.PCM.PN ---
<Cady Lees - Last Filed: 03/04/19 10:13> Subjective - Date & Time of Evaluation Date of Evaluation: 03/04/19 Time of Evaluation: 09:10 - Subjective Subjective: Patient seen and examined at bedside. No complaints. No acute overnight events. Denies angina, dypsnea, nausea, vomiting, abdominal pain, urinary symptoms. Rep orts good appetite and daily BM. Objective - Vital Signs/Intake and Output Vital Signs (last 24 hours): Temp Pulse Resp BP Pulse Ox 97.6 F 60 20 124/64 98 03/04/19 08:10 03/04/19 08:44 03/04/19 08:10 03/04/19 08:44 03/04/19 08:10 - Medications Medications: Current Medications Bacitracin (Bacitracin Oint) 1 applic TOP TID [facility] Last Admin: 03/04/19 08:44 Dose: 1 applic Carvedilol (Coreg) 12.5 mg PO Q12H [facility] Last Admin: 03/04/19 04:42 Dose: 12.5 mg Clonidine HCl (Catapres) 0.2 mg PO BID [facility] Last Admin: 03/04/19 08:44 Dose: 0.2 mg Doxercalciferol (Hectorol) 4 mcg IV TTS [facility] Last Admin: 03/03/19 14:48 Dose: 4 mcg Epoetin Destin (Procrit) 4,000 unit IV TTS [facility] Last Admin: 03/03/19 14:47 Dose: 4,000 unit Heparin Sodium (Porcine) (Heparin) 5,000 units SC Q12 [facility]; Protocol Last Admin: 03/04/19 08:44 Dose: 5,000 units Hydralazine HCl (Apresoline) 50 mg PO TID [facility] Last Admin: 03/04/19 08:43 Dose: 50 mg Sevelamer Carbonate (Renvela) 1,600 mg PO TID [facility] Last Admin: 03/04/19 08:45 Dose: 1,600 mg - Labs Labs: 02/25/19 06:00 02/25/19 06:00 PT 13.8 Seconds (9.8-13.1) H 02/03/19 18:17 INR 1.2 02/03/19 18:17 APTT 52.3 Seconds (25.6-37.1) H 02/03/19 18:17 - Constitutional Appears: Non-toxic, No Acute Distress - Eye Exam Eye Exam: Normal appearance - ENT Exam ENT Exam: Mucous Membranes Moist - Respiratory Exam Respiratory Exam: Clear to Ausculation Bilateral, NORMAL BREATHING PATTERN. absent: Accessory Muscle Use, Chest Wall Tenderness, Decreased Breath Sounds, Prolonged Expiratory Phase, Rales, Rhonchi, Wheezes, Respiratory Distress, Str idor - Cardiovascular Exam Cardiovascular Exam: REGULAR RHYTHM, +S1, +S2 - GI/Abdominal Exam GI & Abdominal Exam: Soft, Normal Bowel Sounds. absent: Distended, Firm, Guarding, Rigid, Tenderness, Mass, Rebound - Extremities Exam Extremities Exam: Full ROM, Normal Capillary Refill, Normal Inspection. absent: Calf Tenderness, Joint Swelling, Pedal Edema, Tenderness - Back Exam Back Exam: NORMAL INSPECTION - Neurological Exam Neurological Exam: Alert, Awake, Oriented x3 - Psychiatric Exam Psychiatric exam: Normal Affect, Normal Mood - Skin Skin Exam: Dry, Intact, Normal Color, Warm Assessment and Plan - Assessment and Plan (Free Text) Assessment: 33 y/o male with PMH ESRD on HD not compliant, off HD for 2 months , presented to ER with hypertensive urgency, Metabolic acidosis secondary to ESRD , Fluid overload and anemia of chronic disease He was started back on HD and BP meds and at present doing well, waiting for HD spot in community Continue HD as scheduled TThS Plan: 1. ESRD on HD - c/w TIW Hemodialysis TThS ( pt has right chest Permacath) - awaiting outpt HD placement - Pt has an AV shunt placed on the left arm - done in [facility] , has not yet matured -c/w Hectorol 2. Hypertensive Emergency/HTN - Controlled - initially started on IV antihypertensives on admission - c/w Hydralazine and Coreg and Clonidine to 0.2 mg bid, now better controlled 3. UTI- Enterococcus - completed treatment 4. Anemia of Chronic Renal Dis -cont Epogen and Venofer after HD 5. DVT prophylaxis SCD's <Eden Mai - Last Filed: 03/04/19 15:37> Objective - Vital Signs/Intake and Output Vital Signs (last 24 hours): Temp Pulse Resp BP Pulse Ox 97.6 F 60 20 132/77 98 03/04/19 08:10 03/04/19 13:17 03/04/19 08:10 03/04/19 13:17 03/04/19 08:10 - Medications Medications: Current Medications Bacitracin (Bacitracin Oint) 1 applic TOP TID [facility] Last Admin: 03/04/19 13:18 Dose: 1 applic Carvedilol (Coreg) 12.5 mg PO Q12H [facility] Last Admin: 03/04/19 04:42 Dose: 12.5 mg Clonidine HCl (Catapres) 0.2 mg PO BID [facility] Last Admin: 03/04/19 08:44 Dose: 0.2 mg Doxercalciferol (Hectorol) 4 mcg IV TTS [facility] Last Admin: 03/03/19 14:48 Dose: 4 mcg Epoetin Destin (Procrit) 4,000 unit IV TTS [facility] Last Admin: 03/03/19 14:47 Dose: 4,000 unit Heparin Sodium (Porcine) (Heparin) 5,000 units SC Q12 [facility]; Protocol Last Admin: 03/04/19 08:44 Dose: 5,000 units Hydralazine HCl (Apresoline) 50 mg PO TID [facility] Last Admin: 03/04/19 13:17 Dose: 50 mg Sevelamer Carbonate (Renvela) 1,600 mg PO TID [facility] Last Admin: 03/04/19 13:18 Dose: 1,600 mg - Labs Labs: 02/25/19 06:00 02/25/19 06:00 PT 13.8 Seconds (9.8-13.1) H 02/03/19 18:17 INR 1.2 02/03/19 18:17 APTT 52.3 Seconds (25.6-37.1) H 02/03/19 18:17 Attending/Attestation - Attestation I have personally seen and examined this patient.: Yes I have fully participated in the care of the patient.: Yes I have reviewed all pertinent clinical information, including history, physical exam and plan: Yes Notes (Text): 1. ESRD on HD - cont TIW Hemodialysis TThS ( pt has right chest Permacath) - awaiting outpt HD placement - Pt has an AV shunt placed on the left arm - done in [facility] , has not yet matured -cont Hectorol 2. Hypertensive Emergency/HTN - initially started on IV antihypertensives on admission - cont Hydralazine and Coreg, Clonidine - now better controlled 3. UTI- Enterococcus - completed treatment 4. Anemia of Chronic Renal Dis -cont Epogen and Venofer after HD
[2019-03-05] MEDS: Bacitracin OINT 15GM TOP SCH ×3 (08:39→16:19)
--- NOTE | 2019-03-05 08:54 | CP.PCM.PN ---
Subjective - Date & Time of Evaluation Date of Evaluation: 03/05/19 Time of Evaluation: 09:15 - Subjective Subjective: Patient seen and examined on rounds. Denies any complaints. Reports good appetite and daily BM. Denies angina, dypsnea, nausea, vomiting and abdominal pain. Objective - Vital Signs/Intake and Output Vital Signs (last 24 hours): Temp Pulse Resp BP Pulse Ox 97.6 F 61 18 147/71 97 03/05/19 08:39 03/05/19 08:39 03/05/19 08:39 03/05/19 08:39 03/05/19 08:39 - Medications Medications: Current Medications Bacitracin (Bacitracin Oint) 1 applic TOP TID [facility] Last Admin: 03/05/19 08:39 Dose: 1 applic Carvedilol (Coreg) 12.5 mg PO Q12H [facility] Last Admin: 03/05/19 04:42 Dose: 12.5 mg Clonidine HCl (Catapres) 0.2 mg PO BID [facility] Last Admin: 03/05/19 08:39 Dose: 0.2 mg Doxercalciferol (Hectorol) 4 mcg IV TTS [facility] Last Admin: 03/03/19 14:48 Dose: 4 mcg Epoetin Destin (Procrit) 4,000 unit IV TTS [facility] Last Admin: 03/03/19 14:47 Dose: 4,000 unit Heparin Sodium (Porcine) (Heparin) 5,000 units SC Q12 [facility]; Protocol Last Admin: 03/05/19 08:39 Dose: 5,000 units Hydralazine HCl (Apresoline) 50 mg PO TID [facility] Last Admin: 03/05/19 08:39 Dose: 50 mg Sevelamer Carbonate (Renvela) 1,600 mg PO TID [facility] Last Admin: 03/05/19 08:39 Dose: 1,600 mg - Labs Labs: 02/25/19 06:00 02/25/19 06:00 PT 13.8 Seconds (9.8-13.1) H 02/03/19 18:17 INR 1.2 02/03/19 18:17 APTT 52.3 Seconds (25.6-37.1) H 02/03/19 18:17 - Constitutional Appears: Well, Non-toxic, No Acute Distress - Eye Exam Eye Exam: Normal appearance - ENT Exam ENT Exam: Mucous Membranes Moist - Respiratory Exam Respiratory Exam: Clear to Ausculation Bilateral, NORMAL BREATHING PATTERN. absent: Accessory Muscle Use, Chest Wall Tenderness, Decreased Breath Sounds, Prolonged Expiratory Phase, Rales, Rhonchi, Wheezes, Respiratory Distress, Stridor - Cardiovascular Exam Cardiovascular Exam: REGULAR RHYTHM, +S1, +S2 - GI/Abdominal Exam GI & Abdominal Exam: Soft, Normal Bowel Sounds. absent: Distended, Firm, Guarding, Rigid, Tenderness, Mass, Rebound - Extremities Exam Extremities Exam: Full ROM, Normal Capillary Refill, Normal Inspection. absent: Calf Tenderness, Joint Swelling, Pedal Edema, Tenderness - Neurological Exam Neurological Exam: Alert, Awake, Oriented x3 - Psychiatric Exam Psychiatric exam: Normal Affect, Normal Mood - Skin Skin Exam: Dry, Intact, Normal Color, Warm Assessment and Plan - Assessment and Plan (Free Text) Assessment: 33 y/o male with PMH ESRD on HD not compliant, off HD for 2 months , presented to ER with hypertensive urgency, Metabolic acidosis secondary to ESRD , Fluid overload and anemia of chronic disease He was started back on HD and BP meds and at present doing well, waiting for HD spot in community Continue HD as scheduled TThS Plan: 1. ESRD on HD - c/w TIW Hemodialysis TThS ( pt has right chest Permacath) - awaiting outpt HD placement - Pt has an AV shunt placed on the left arm - done in [facility] , has not yet matured -c/w Hectorol 2. Hypertensive Emergency/HTN - Controlled - initially started on IV antihypertensives on admission - c/w Hydralazine and Coreg and Clonidine to 0.2 mg bid 3. UTI- Enterococcus - completed treatment 4. Anemia of Chronic Renal Dis -cont Epogen and Venofer after HD 5. DVT prophylaxis SCD's
--- NOTE | 2019-03-05 14:08 | CP.PCM.PN ---
Subjective - Date & Time of Evaluation Date of Evaluation: 03/05/19 Time of Evaluation: 01:00 - Subjective Subjective: No c/o weakness or dizziness Objective - Vital Signs/Intake and Output Vital Signs (last 24 hours): Temp Pulse Resp BP Pulse Ox 97.6 F 74 18 146/79 97 03/05/19 08:39 03/05/19 12:01 03/05/19 08:39 03/05/19 12:01 03/05/19 08:39 - Medications Medications: Current Medications Bacitracin (Bacitracin Oint) 1 applic TOP TID [facility] Last Admin: 03/05/19 12:02 Dose: 1 applic Carvedilol (Coreg) 12.5 mg PO Q12H [facility] Last Admin: 03/05/19 04:42 Dose: 12.5 mg Clonidine HCl (Catapres) 0.2 mg PO BID [facility] Last Admin: 03/05/19 08:39 Dose: 0.2 mg Doxercalciferol (Hectorol) 4 mcg IV TTS [facility] Last Admin: 03/03/19 14:48 Dose: 4 mcg Epoetin Destin (Procrit) 4,000 unit IV TTS [facility] Last Admin: 03/03/19 14:47 Dose: 4,000 unit Heparin Sodium (Porcine) (Heparin) 5,000 units SC Q12 [facility]; Protocol Last Admin: 03/05/19 08:39 Dose: 5,000 units Hydralazine HCl (Apresoline) 50 mg PO TID [facility] Last Admin: 03/05/19 12:01 Dose: 50 mg Sevelamer Carbonate (Renvela) 1,600 mg PO TID [facility] Last Admin: 03/05/19 12:01 Dose: 1,600 mg - Labs Labs: 02/25/19 06:00 02/25/19 06:00 PT 13.8 Seconds (9.8-13.1) H 02/03/19 18:17 INR 1.2 02/03/19 18:17 APTT 52.3 Seconds (25.6-37.1) H 02/03/19 18:17 - Constitutional Appears: No Acute Distress - Head Exam Head Exam: ATRAUMATIC, NORMOCEPHALIC - Eye Exam Eye Exam: Normal appearance - Respiratory Exam Respiratory Exam: NORMAL BREATHING PATTERN Additional comments: Lungs clear - Cardiovascular Exam Cardiovascular Exam: REGULAR RHYTHM - Extremities Exam Additional comments: No edema. +bruit over AVF Assessment and Plan - Assessment and Plan (Free Text) Assessment: ESRD on maintenance HD. Awaiting placement in out patient dialysis facility. Has been tolerating dialysis well BP is controlled Plan: Continue HD MWF L:abs not available New labs ordered for Tuesday
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
[2019-03-06] MEDS: Bacitracin OINT 15GM TOP SCH ×3 (09:47→16:40)
[2019-03-07 06:47] LABS: HEMOGLOBIN 12.5 g/dL (12.0-18.0); MEAN CELL VOLUME 90.1 fl (80.0-94.0); MEAN CORPUSCULAR HEMOGLOBIN 30.1 pg (27.0-31.0); MEAN CORPUSCULAR HGB CONC 33.4 g/dL (33.0-37.0); RBC 4.16 Mil/uL (4.40-5.90); RED CELL DISTRIBUTION WIDTH 18.9 % (11.5-14.5); WHITE BLOOD COUNT 5.5 K/uL (4.8-10.8)
[2019-03-07 07:14] LABS: CALCIUM 8.9 mg/dL (8.4-10.2)
[2019-03-07] MEDS ORDERED: Epoetin Alfa 4000 UNIT/ML Inj IV SCH (09:00)
[2019-03-07] MEDS: Bacitracin OINT 15GM TOP SCH ×2 (09:32→12:38)
[2019-03-07] MEDS: Doxercalciferol 4 mcg/2 ml Inj IV SCH (09:33)
--- NOTE | 2019-03-07 12:13 | CP.PCM.PN ---
Subjective - Date & Time of Evaluation Date of Evaluation: 03/07/19 Time of Evaluation: 10:05 - Subjective Subjective: Patient seen and examined at bedside. In no acute distress. Recieving hemodialysis at this time, tolerating well. Denies chest pain, weakness, dizziness or SOB. Report normal stool output and reports daily minimal urine output. Objective - Vital Signs/Intake and Output Vital Signs (last 24 hours): Temp Pulse Resp BP Pulse Ox 97.4 F L 59 L 20 129/70 98 03/07/19 08:59 03/07/19 08:59 03/07/19 08:59 03/07/19 08:59 03/07/19 08:59 - Medications Medications: Current Medications Bacitracin (Bacitracin Oint) 1 applic TOP TID [facility] Last Admin: 03/07/19 09:32 Dose: 1 applic Carvedilol (Coreg) 12.5 mg PO Q12H [facility] Last Admin: 03/07/19 05:12 Dose: 12.5 mg Clonidine HCl (Catapres) 0.2 mg PO BID [facility] Last Admin: 03/06/19 16:40 Dose: 0.2 mg Doxercalciferol (Hectorol) 4 mcg IV [facility] Last Admin: 03/07/19 09:33 Dose: Not Given Epoetin Destin (Procrit) 4,000 unit IV [facility] Last Admin: 03/07/19 09:34 Dose: Not Given Heparin Sodium (Porcine) (Heparin) 5,000 units SC Q12 [facility]; Protocol Last Admin: 03/07/19 09:34 Dose: 5,000 units Hydralazine HCl (Apresoline) 50 mg PO TID [facility] Last Admin: 03/06/19 16:41 Dose: 50 mg Sevelamer Carbonate (Renvela) 1,600 mg PO TID [facility] Last Admin: 03/07/19 09:30 Dose: 1,600 mg - Labs Labs: 03/07/19 06:30 03/07/19 06:30 PT 13.8 Seconds (9.8-13.1) H 02/03/19 18:17 INR 1.2 02/03/19 18:17 APTT 52.3 Seconds (25.6-37.1) H 02/03/19 18:17 - Constitutional Appears: No Acute Distress - Head Exam Head Exam: ATRAUMATIC, NORMOCEPHALIC - Eye Exam Eye Exam: EOMI - ENT Exam ENT Exam: Mucous Membranes Moist - Neck Exam Neck Exam: Full ROM - Respiratory Exam Respiratory Exam: Clear to Ausculation Bilateral, NORMAL BREATHING PATTERN - Cardiovascular Exam Cardiovascular Exam: REGULAR RHYTHM, +S1, +S2 - GI/Abdominal Exam GI & Abdominal Exam: Soft, Normal Bowel Sounds. absent: Tenderness - Extremities Exam Extremities Exam: Full ROM - Neurological Exam Neurological Exam: Alert, Awake, Oriented x3 - Psychiatric Exam Psychiatric exam: Normal Affect, Normal Mood - Skin Skin Exam: Normal Color, Warm Additional comments: right forearm IV, right chest permacath, dressings clean and dry Assessment and Plan - Assessment and Plan (Free Text) Assessment: 33 yr old M with PMHx ESRD on HD, non compliant, was off HD for 2 months, admitted for hypertensive urgency and metacolic acidosis secondary to ESRD, fluid overload and anemia of chronic disease. Patientis currently being treated with HD TThS and BP meds and stable. Awaiting hemodialysis placement in the community. Continue HD as scheduled TThS. 1. ESRD on HD -continue with HD TThS (right permacath in place) -awaiting outpatient HD placement -patient has AV shunt placed in left arm (placement done in [facility], has not yet matured) -continue with Hectorol 2. Hypertension -controlled -continue with hydralazine 50mg PO BID, coreg 12.5mg PO Q12 and clonidine 0.2mg PO BID 3. UTI-enterococcus faecalis -treatment completed (Amoxicillin PO) 4. Anemia of chronic disease -secondary to ESRD -continue Epogen after HD 5. DVT prophylaxis -SCD's
--- NOTE | 2019-03-07 13:59 | CP.PCM.PN ---
Subjective - Date & Time of Evaluation Date of Evaluation: 03/07/19 Time of Evaluation: 01:40 - Subjective Subjective: Feels well. Denied feeling weak or dizzy. No leg cramps during dialysis. Objective - Vital Signs/Intake and Output Vital Signs (last 24 hours): Temp Pulse Resp BP Pulse Ox 97.4 F L 69 20 121/76 98 03/07/19 08:59 03/07/19 12:36 03/07/19 08:59 03/07/19 12:36 03/07/19 08:59 - Medications Medications: Current Medications Bacitracin (Bacitracin Oint) 1 applic TOP TID [facility] Last Admin: 03/07/19 12:38 Dose: 1 applic Carvedilol (Coreg) 12.5 mg PO Q12H [facility] Last Admin: 03/07/19 05:12 Dose: 12.5 mg Clonidine HCl (Catapres) 0.2 mg PO BID [facility] Last Admin: 03/07/19 09:37 Dose: Not Given Doxercalciferol (Hectorol) 4 mcg IV MWF [facility] Last Admin: 03/07/19 09:33 Dose: Not Given Heparin Sodium (Porcine) (Heparin) 5,000 units SC Q12 [facility]; Protocol Last Admin: 03/07/19 09:34 Dose: 5,000 units Hydralazine HCl (Apresoline) 50 mg PO TID [facility] Last Admin: 03/07/19 12:37 Dose: Not Given Sevelamer HCl (Renagel) 2,400 mg PO TID [facility] - Labs Labs: 03/07/19 06:30 03/07/19 06:30 PT 13.8 Seconds (9.8-13.1) H 02/03/19 18:17 INR 1.2 02/03/19 18:17 APTT 52.3 Seconds (25.6-37.1) H 02/03/19 18:17 - Constitutional Appears: No Acute Distress - Head Exam Head Exam: ATRAUMATIC, NORMOCEPHALIC - Eye Exam Eye Exam: Normal appearance - ENT Exam ENT Exam: Mucous Membranes Moist - Neck Exam Additional comments: Neck supple - Respiratory Exam Respiratory Exam: NORMAL BREATHING PATTERN Additional comments: Lungs clear - Cardiovascular Exam Cardiovascular Exam: REGULAR RHYTHM, JVD Additional comments: No rub - GI/Abdominal Exam GI & Abdominal Exam: Soft - Extremities Exam Additional comments: No edema + bruit over Lt arm AVF. Lt hand is warm . Lt radial pulse palpable. Assessment and Plan - Assessment and Plan (Free Text) Assessment: ESRD on maintenance HD HTN controlled Hb is above target. Will hold Epogen Predialysis Sodium is low. Will increase UF to 3.5 Kg. Plan: Continue HD per schedule. Increase Renagel dose.
[2019-03-07 17:02] LABS: HEPATITIS B SURFACE AG Negative (NEGATIVE)
[2019-03-07 17:07] LABS: HEPATITIS B CORE AB NEGATIVE (NEGATIVE)
[2019-03-08 07:56] LABS: CALCIUM 8.8 mg/dL (8.4-10.2)
[2019-03-08] MEDS: Bacitracin OINT 15GM TOP SCH ×3 (08:52→16:29)
--- NOTE | 2019-03-08 11:10 | CP.PCM.PN ---
Subjective - Date & Time of Evaluation Date of Evaluation: 03/08/19 Time of Evaluation: 09:25 - Subjective Subjective: Patient seen and examined at bedside. In no acute distress. No events overnight. Denies chest pain, SOB or weakness. Tolerating PO diet. Reports normal stool output. Objective - Vital Signs/Intake and Output Vital Signs (last 24 hours): Temp Pulse Resp BP Pulse Ox 97.7 F 93 H 20 152/84 H 99 03/08/19 07:56 03/08/19 08:52 03/08/19 07:56 03/08/19 08:52 03/08/19 07:56 - Medications Medications: Current Medications Bacitracin (Bacitracin Oint) 1 applic TOP TID [facility] Last Admin: 03/08/19 08:52 Dose: 1 applic Carvedilol (Coreg) 12.5 mg PO Q12H [facility] Last Admin: 03/08/19 05:55 Dose: 12.5 mg Clonidine HCl (Catapres) 0.2 mg PO BID [facility] Last Admin: 03/08/19 08:52 Dose: 0.2 mg Doxercalciferol (Hectorol) 4 mcg IV MWF [facility] Last Admin: 03/07/19 09:33 Dose: Not Given Heparin Sodium (Porcine) (Heparin) 5,000 units SC Q12 [facility]; Protocol Last Admin: 03/08/19 08:52 Dose: 5,000 units Hydralazine HCl (Apresoline) 50 mg PO TID [facility] Last Admin: 03/08/19 08:51 Dose: 50 mg Sevelamer Carbonate (Renvela) 2,400 mg PO TID [facility] Last Admin: 03/08/19 08:53 Dose: 2,400 mg - Labs Labs: 03/07/19 06:30 03/08/19 05:40 PT 13.8 Seconds (9.8-13.1) H 02/03/19 18:17 INR 1.2 02/03/19 18:17 APTT 52.3 Seconds (25.6-37.1) H 02/03/19 18:17 - Constitutional Appears: No Acute Distress - Eye Exam Eye Exam: EOMI - ENT Exam ENT Exam: Mucous Membranes Moist - Respiratory Exam Respiratory Exam: Clear to Ausculation Bilateral, NORMAL BREATHING PATTERN Additional comments: right chest permacath in place, dressing clean/dry/intact - Cardiovascular Exam Cardiovascular Exam: REGULAR RHYTHM, +S1, +S2 - GI/Abdominal Exam GI & Abdominal Exam: Soft. absent: Tenderness - Extremities Exam Extremities Exam: absent: Calf Tenderness, Pedal Edema - Neurological Exam Neurological Exam: Alert, Awake, Oriented x3 - Psychiatric Exam Psychiatric exam: Normal Affect, Normal Mood - Skin Skin Exam: Dry, Warm Assessment and Plan - Assessment and Plan (Free Text) Assessment: 33 yr old M with PMHx ESRD on HD, non compliant, was off HD for 2 months, admitted for hypertensive urgency and metacolic acidosis secondary to ESRD, fluid overload and anemia of chronic disease. Last hemodialysis session was yesterday. Patient stable. Awaiting hemodialysis placement in the community. Continue HD as scheduled TThS. 1. ESRD on HD -continue with HD TThS (right permacath in place) -awaiting outpatient HD placement -patient has AV shunt placed in left arm (placement done in [facility], has not yet matured) -Nephro on board: increase Renvela to 2,400 mg PO TID, continue with Hectorol 2. Hypertension -chronic, controlled -continue with hydralazine 50mg PO BID, coreg 12.5mg PO Q12 and clonidine 0.2mg PO BID 3. UTI-enterococcus faecalis -treatment completed (Amoxicillin PO) 4. Anemia of chronic disease -secondary to ESRD -hemoglobin at target, hold Epogen per nephro 5. DVT prophylaxis -SCD's, Heparin 5,000 units SC Q12
[2019-03-09] MEDS: Bacitracin OINT 15GM TOP SCH ×3 (10:08→17:04)
--- NOTE | 2019-03-09 12:54 | CP.PCM.PN ---
<Veda Vora - Last Filed: 03/09/19 12:51> Subjective - Date & Time of Evaluation Date of Evaluation: 03/09/19 Time of Evaluation: 09:15 - Subjective Subjective: Patient seen and examined at bedside. In no acute distress. Sitting in bed. Reports normal bowel movement today, and urine output. Denies chest pain, weakness, dizziness or muscle pain. Objective - Vital Signs/Intake and Output Vital Signs (last 24 hours): Temp Pulse Resp BP Pulse Ox 97.9 F 60 20 134/77 96 03/09/19 07:49 03/09/19 10:09 03/09/19 07:49 03/09/19 10:09 03/09/19 07:49 - Medications Medications: Current Medications Bacitracin (Bacitracin Oint) 1 applic TOP TID [facility] Last Admin: 03/09/19 12:10 Dose: 1 applic Carvedilol (Coreg) 12.5 mg PO Q12H [facility] Last Admin: 03/09/19 04:56 Dose: 12.5 mg Clonidine HCl (Catapres) 0.2 mg PO BID [facility] Last Admin: 03/09/19 10:09 Dose: Not Given Doxercalciferol (Hectorol) 4 mcg IV MWF [facility] Last Admin: 03/07/19 09:33 Dose: Not Given Heparin Sodium (Porcine) (Heparin) 5,000 units SC Q12 [facility]; Protocol Last Admin: 03/09/19 10:08 Dose: 5,000 units Hydralazine HCl (Apresoline) 50 mg PO TID [facility] Last Admin: 03/09/19 12:09 Dose: Not Given Sevelamer Carbonate (Renvela) 2,400 mg PO TID [facility] Last Admin: 03/09/19 12:11 Dose: 2,400 mg - Labs Labs: 03/07/19 06:30 03/08/19 05:40 PT 13.8 Seconds (9.8-13.1) H 02/03/19 18:17 INR 1.2 02/03/19 18:17 APTT 52.3 Seconds (25.6-37.1) H 02/03/19 18:17 - Constitutional Appears: No Acute Distress - Eye Exam Eye Exam: EOMI - ENT Exam ENT Exam: Mucous Membranes Moist - Respiratory Exam Respiratory Exam: NORMAL BREATHING PATTERN - Cardiovascular Exam Cardiovascular Exam: REGULAR RHYTHM, +S1, +S2 - GI/Abdominal Exam GI & Abdominal Exam: Soft, Normal Bowel Sounds - Extremities Exam Extremities Exam: Full ROM. absent: Pedal Edema - Neurological Exam Neurological Exam: Alert, Awake, Oriented x3 - Psychiatric Exam Psychiatric exam: Normal Affect, Normal Mood - Skin Skin Exam: Dry (right upper chest permacath and right forearm IV , dressings clean/dry/intact), Normal Color, Warm Assessment and Plan - Assessment and Plan (Free Text) Assessment: 33 yr old M with PMHx ESRD on HD, non compliant, was off HD for 2 months, admitted for hypertensive urgency and metacolic acidosis secondary to ESRD, fluid overload and anemia of chronic disease. Last hemodialysis session was tuesday, scheduled for HD today. Patient stable. Awaiting hemodialysis placement in the community. Continue HD as scheduled MWF. 1. ESRD on HD -continue with HD MWF(right permacath in place) -awaiting outpatient HD placement -patient has AV shunt placed in left arm (placement done in [facility], has not yet matured) -Nephro on board: Renvela 2,400 mg PO TID, continue with Hectorol -renal diet 2. Hypertension -chronic, controlled -continue with hydralazine 50mg PO BID, coreg 12.5mg PO Q12 and clonidine 0.2mg PO BID 3. UTI-enterococcus faecalis -treatment completed (Amoxicillin PO) 4. Anemia of chronic disease -secondary to ESRD -hemoglobin at target, hold Epogen per nephro 5. DVT prophylaxis -SCD's, Heparin 5,000 units SC Q12 <Eden Mai - Last Filed: 03/09/19 15:06> Objective - Vital Signs/Intake and Output Vital Signs (last 24 hours): Temp Pulse Resp BP Pulse Ox 97.9 F 60 20 134/77 96 03/09/19 07:49 03/09/19 10:09 03/09/19 07:49 03/09/19 10:09 03/09/19 07:49 - Medications Medications: Current Medications Bacitracin (Bacitracin Oint) 1 applic TOP TID [facility] Last Admin: 03/09/19 12:10 Dose: 1 applic Carvedilol (Coreg) 12.5 mg PO Q12H [facility] Last Admin: 03/09/19 04:56 Dose: 12.5 mg Clonidine HCl (Catapres) 0.2 mg PO BID [facility] Last Admin: 03/09/19 10:09 Dose: Not Given Doxercalciferol (Hectorol) 4 mcg IV MWF [facility] Last Admin: 03/07/19 09:33 Dose: Not Given Heparin Sodium (Porcine) (Heparin) 5,000 units SC Q12 [facility]; Protocol Last Admin: 03/09/19 10:08 Dose: 5,000 units Hydralazine HCl (Apresoline) 50 mg PO TID [facility] Last Admin: 03/09/19 12:09 Dose: Not Given Sevelamer Carbonate (Renvela) 2,400 mg PO TID [facility] Last Admin: 03/09/19 12:11 Dose: 2,400 mg - Labs Labs: 03/07/19 06:30 03/08/19 05:40 PT 13.8 Seconds (9.8-13.1) H 02/03/19 18:17 INR 1.2 02/03/19 18:17 APTT 52.3 Seconds (25.6-37.1) H 02/03/19 18:17 Attending/Attestation - Attestation I have personally seen and examined this patient.: Yes I have fully participated in the care of the patient.: Yes I have reviewed all pertinent clinical information, including history, physical exam and plan: Yes Notes (Text): 1. ESRD on HD - awaiting outpt HD placement - discussed with Dr Perdomo , about decreasing HD to 2x per week - Tuesday and Tuesday , to see if pt can be d/c home and he can come back and be admitted 2x for HD. Dr Perdomo agreed todecreasing HD to 2x/wk and we will monitor pt. ( pt had signed AMA previously due to long wait for Outpt HD) - Pt has an AV shunt placed on the left arm - done in [facility] , has not yet matured -cont Hectorol 2. Hypertensive Emergency/HTN - initially started on IV antihypertensives on admission - cont Hydralazine and Coreg, Clonidine - now better controlled 3. UTI- Enterococcus - completed treatment 4. Anemia of Chronic Renal Dis -cont Epogen and Venofer after HD
--- NOTE | 2019-03-09 14:49 | CP.PCM.PN ---
Subjective - Date & Time of Evaluation Date of Evaluation: 03/09/19 Time of Evaluation: 02:15 - Subjective Subjective: Currently on dialysis. No complaints reported Objective - Vital Signs/Intake and Output Vital Signs (last 24 hours): Temp Pulse Resp BP Pulse Ox 97.9 F 60 20 134/77 96 03/09/19 07:49 03/09/19 10:09 03/09/19 07:49 03/09/19 10:09 03/09/19 07:49 - Medications Medications: Current Medications Bacitracin (Bacitracin Oint) 1 applic TOP TID [facility] Last Admin: 03/09/19 12:10 Dose: 1 applic Carvedilol (Coreg) 12.5 mg PO Q12H [facility] Last Admin: 03/09/19 04:56 Dose: 12.5 mg Clonidine HCl (Catapres) 0.2 mg PO BID [facility] Last Admin: 03/09/19 10:09 Dose: Not Given Doxercalciferol (Hectorol) 4 mcg IV MWF [facility] Last Admin: 03/07/19 09:33 Dose: Not Given Heparin Sodium (Porcine) (Heparin) 5,000 units SC Q12 [facility]; Protocol Last Admin: 03/09/19 10:08 Dose: 5,000 units Hydralazine HCl (Apresoline) 50 mg PO TID [facility] Last Admin: 03/09/19 12:09 Dose: Not Given Sevelamer Carbonate (Renvela) 2,400 mg PO TID [facility] Last Admin: 03/09/19 12:11 Dose: 2,400 mg - Labs Labs: 03/07/19 06:30 03/08/19 05:40 PT 13.8 Seconds (9.8-13.1) H 02/03/19 18:17 INR 1.2 02/03/19 18:17 APTT 52.3 Seconds (25.6-37.1) H 02/03/19 18:17 - Constitutional Appears: No Acute Distress - Head Exam Head Exam: ATRAUMATIC, NORMOCEPHALIC - Eye Exam Eye Exam: Normal appearance - ENT Exam ENT Exam: Mucous Membranes Moist - Respiratory Exam Respiratory Exam: NORMAL BREATHING PATTERN Additional comments: Lungws clear - Cardiovascular Exam Cardiovascular Exam: REGULAR RHYTHM Additional comments: No rub - Extremities Exam Additional comments: No edema or cyanosis + bruit over Lt arm AVF Assessment and Plan - Assessment and Plan (Free Text) Assessment: ESRD on HD MWF HTN BP controlled Anemia. Hb 12.4. Epogen on hold Plan: Continue HD per schedule. Dialysis time is increased to 4 hrs. Encourage compliance with [facility]
[2019-03-09] MEDS: Doxercalciferol 4 mcg/2 ml Inj IV SCH (15:53)
[2019-03-10] MEDS: Bacitracin OINT 15GM TOP SCH ×3 (10:56→18:28)
--- NOTE | 2019-03-10 11:29 | CP.PCM.PN ---
Subjective - Date & Time of Evaluation Date of Evaluation: 03/10/19 Time of Evaluation: 10:15 - Subjective Subjective: Had HD yesterday no fever no CP no SOB no edema no abd pain Awaiting HD outpt placement Objective - Vital Signs/Intake and Output Vital Signs (last 24 hours): Temp Pulse Resp BP Pulse Ox 97.7 F 59 L 20 157/75 H 98 03/10/19 08:11 03/10/19 10:56 03/10/19 08:11 03/10/19 10:56 03/10/19 08:11 - Medications Medications: Current Medications Bacitracin (Bacitracin Oint) 1 applic TOP TID [facility] Last Admin: 03/10/19 10:56 Dose: 1 applic Carvedilol (Coreg) 12.5 mg PO Q12H [facility] Last Admin: 03/10/19 05:09 Dose: 12.5 mg Clonidine HCl (Catapres) 0.2 mg PO BID [facility] Last Admin: 03/10/19 10:56 Dose: 0.2 mg Doxercalciferol (Hectorol) 4 mcg IV MWF [facility] Last Admin: 03/09/19 15:53 Dose: 4 mcg Heparin Sodium (Porcine) (Heparin) 5,000 units SC Q12 [facility]; Protocol Last Admin: 03/10/19 10:57 Dose: 5,000 units Hydralazine HCl (Apresoline) 50 mg PO TID [facility] Last Admin: 03/10/19 10:56 Dose: 50 mg Sevelamer Carbonate (Renvela) 2,400 mg PO TID [facility] Last Admin: 03/10/19 10:57 Dose: 2,400 mg - Labs Labs: 03/07/19 06:30 03/08/19 05:40 PT 13.8 Seconds (9.8-13.1) H 02/03/19 18:17 INR 1.2 02/03/19 18:17 APTT 52.3 Seconds (25.6-37.1) H 02/03/19 18:17 - Constitutional Appears: No Acute Distress - Head Exam Head Exam: NORMAL INSPECTION, NORMOCEPHALIC - Eye Exam Eye Exam: EOMI, Normal appearance, PERRL Pupil Exam: NORMAL ACCOMODATION - ENT Exam ENT Exam: Mucous Membranes Moist, Normal External Ear Exam - Neck Exam Neck Exam: Full ROM. absent: Meningismus - Respiratory Exam Respiratory Exam: NORMAL BREATHING PATTERN. absent: Respiratory Distress - Cardiovascular Exam Cardiovascular Exam: REGULAR RHYTHM, +S1, +S2 Additional comments: right chest HD catheter - GI/Abdominal Exam GI & Abdominal Exam: Soft, Normal Bowel Sounds. absent: Tenderness - Extremities Exam Extremities Exam: Full ROM, Normal Capillary Refill. absent: Calf Tenderness, Pedal Edema Additional comments: Left antecubital area AV shunt , + bruit - Back Exam Back Exam: Full ROM. absent: CVA tenderness (L), CVA tenderness (R) - Neurological Exam Neurological Exam: Alert, Awake, CN II-XII Intact, Normal Gait, Oriented x3 Neuro motor strength exam: Left Upper Extremity: 5, Right Upper Extremity: 5, Left Lower Extremity: 5, Right Lower Extremity: 5 - Psychiatric Exam Psychiatric exam: Normal Affect, Normal Mood - Skin Skin Exam: Dry, Normal Color, Warm Assessment and Plan - Assessment and Plan (Free Text) Plan: 1. ESRD on HD - Discussed with Dr Perdomo decreasing HD 2x a week and poss discharging him and readmitting him 2x/wk just for HD ( Tuesday and Tuesday ) - Dr Perdomo agreed. - awaiting outpt HD placement - Pt has an AV shunt placed on the left arm - done in [facility] , has not yet matured, Permacath on Right Chest -cont Hectorol 2. Hypertensive Emergency/HTN - initially started on IV antihypertensives on admission - cont Hydralazine and Coreg, Clonidine - now better controlled 3. UTI- Enterococcus - completed treatment 4. Anemia of Chronic Renal Dis -cont Epogen and Venofer after HD
[2019-03-11] MEDS: Bacitracin OINT 15GM TOP SCH ×4 (09:21→17:19)
--- NOTE | 2019-03-11 10:40 | CP.PCM.PN ---
Subjective - Date & Time of Evaluation Date of Evaluation: 03/11/19 Time of Evaluation: 10:30 - Subjective Subjective: Pt is getting bored discussed with pt decrease in HD to 2x per week no SOB no CP no fever no abd pain Objective - Vital Signs/Intake and Output Vital Signs (last 24 hours): Temp Pulse Resp BP Pulse Ox 97.7 F 59 L 20 129/70 98 03/11/19 08:27 03/11/19 09:25 03/11/19 08:27 03/11/19 09:25 03/11/19 08:27 - Medications Medications: Current Medications Bacitracin (Bacitracin Oint) 1 applic TOP TID [facility] Last Admin: 03/11/19 09:25 Dose: 1 applic Carvedilol (Coreg) 12.5 mg PO Q12H [facility] Last Admin: 03/11/19 04:08 Dose: 12.5 mg Clonidine HCl (Catapres) 0.2 mg PO BID [facility] Last Admin: 03/11/19 09:25 Dose: 0.2 mg Doxercalciferol (Hectorol) 4 mcg IV MWF [facility] Last Admin: 03/09/19 15:53 Dose: 4 mcg Heparin Sodium (Porcine) (Heparin) 5,000 units SC Q12 [facility]; Protocol Last Admin: 03/11/19 09:26 Dose: 5,000 units Hydralazine HCl (Apresoline) 50 mg PO TID [facility] Last Admin: 03/11/19 09:17 Dose: 50 mg Sevelamer Carbonate (Renvela) 2,400 mg PO TID [facility] Last Admin: 03/11/19 09:26 Dose: 2,400 mg - Labs Labs: 03/07/19 06:30 03/08/19 05:40 PT 13.8 Seconds (9.8-13.1) H 02/03/19 18:17 INR 1.2 02/03/19 18:17 APTT 52.3 Seconds (25.6-37.1) H 02/03/19 18:17 - Constitutional Appears: No Acute Distress - Head Exam Head Exam: NORMAL INSPECTION, NORMOCEPHALIC - Eye Exam Eye Exam: EOMI, Normal appearance, PERRL Pupil Exam: NORMAL ACCOMODATION - ENT Exam ENT Exam: Mucous Membranes Moist, Normal External Ear Exam - Neck Exam Neck Exam: Full ROM. absent: Meningismus - Respiratory Exam Respiratory Exam: NORMAL BREATHING PATTERN. absent: Respiratory Distress - Cardiovascular Exam Cardiovascular Exam: REGULAR RHYTHM, +S1, +S2 Additional comments: right chest HD catheter - GI/Abdominal Exam GI & Abdominal Exam: Soft, Normal Bowel Sounds. absent: Tenderness - Extremities Exam Extremities Exam: Full ROM, Normal Capillary Refill. absent: Calf Tenderness, Pedal Edema Additional comments: Left antecubital area AV shunt , + bruit - Back Exam Back Exam: Full ROM. absent: CVA tenderness (L), CVA tenderness (R) - Neurological Exam Neurological Exam: Alert, Awake, CN II-XII Intact, Normal Gait, Oriented x3 Neuro motor strength exam: Left Upper Extremity: 5, Right Upper Extremity: 5, Left Lower Extremity: 5, Right Lower Extremity: 5 - Psychiatric Exam Psychiatric exam: Normal Affect, Normal Mood - Skin Skin Exam: Dry, Normal Color, Warm Assessment and Plan - Assessment and Plan (Free Text) Plan: 1. ESRD on HD - Discussed with Dr Perdomo decreasing HD 2x a week and the possibility that if pt is fine on 2x per wk HD , we might be able to discharge him and just readmit him 2x/wk just for HD ( Tuesday and Tuesday ) - Dr Pedromo agreed. - awaiting outpt HD placement - Pt has an AV shunt placed on the left arm - done in [facility] , has not yet matured, Permacath on Right Chest -cont Hectorol 2. Hypertensive Emergency/HTN - initially started on IV antihypertensives on admission - cont Hydralazine and Coreg, Clonidine - now better controlled 3. UTI- Enterococcus - completed treatment 4. Anemia of Chronic Renal Dis -cont Epogen and Venofer after HD
[2019-03-12] MEDS: Bacitracin OINT 15GM TOP SCH ×3 (08:58→16:57)
[2019-03-12] MEDS: Doxercalciferol 4 mcg/2 ml Inj IV SCH ×2 (08:59→12:13)
--- NOTE | 2019-03-12 10:12 | CP.PCM.PN ---
Subjective - Date & Time of Evaluation Date of Evaluation: 03/12/19 Time of Evaluation: 08:00 - Subjective Subjective: Patient seen and examined at bedside. Ambulating without difficulty. Denies chest pain, SOB, weakness or dizziness. Objective - Vital Signs/Intake and Output Vital Signs (last 24 hours): Temp Pulse Resp BP Pulse Ox 97.7 F 62 20 135/72 96 03/12/19 08:25 03/12/19 08:59 03/12/19 08:25 03/12/19 08:59 03/12/19 08:25 - Medications Medications: Current Medications Bacitracin (Bacitracin Oint) 1 applic TOP TID [facility] Last Admin: 03/12/19 08:58 Dose: 1 applic Carvedilol (Coreg) 12.5 mg PO Q12H [facility] Last Admin: 03/12/19 04:07 Dose: 12.5 mg Clonidine HCl (Catapres) 0.2 mg PO BID [facility] Last Admin: 03/12/19 08:59 Dose: 0.2 mg Doxercalciferol (Hectorol) 4 mcg IV MWF [facility] Last Admin: 03/09/19 15:53 Dose: 4 mcg Heparin Sodium (Porcine) (Heparin) 5,000 units SC Q12 [facility]; Protocol Last Admin: 03/12/19 09:00 Dose: 5,000 units Hydralazine HCl (Apresoline) 50 mg PO TID [facility] Last Admin: 03/12/19 08:58 Dose: 50 mg Sevelamer Carbonate (Renvela) 2,400 mg PO TID [facility] Last Admin: 03/12/19 08:57 Dose: 2,400 mg - Labs Labs: 03/07/19 06:30 03/08/19 05:40 PT 13.8 Seconds (9.8-13.1) H 02/03/19 18:17 INR 1.2 02/03/19 18:17 APTT 52.3 Seconds (25.6-37.1) H 02/03/19 18:17 - Constitutional Appears: No Acute Distress - Head Exam Head Exam: NORMAL INSPECTION - Eye Exam Eye Exam: EOMI - ENT Exam ENT Exam: Mucous Membranes Moist - Respiratory Exam Respiratory Exam: Clear to Ausculation Bilateral, NORMAL BREATHING PATTERN - Cardiovascular Exam Cardiovascular Exam: REGULAR RHYTHM, +S1, +S2 - GI/Abdominal Exam GI & Abdominal Exam: Soft, Normal Bowel Sounds. absent: Tenderness - Extremities Exam Extremities Exam: Full ROM. absent: Pedal Edema - Neurological Exam Neurological Exam: Alert, Awake, Oriented x3 - Psychiatric Exam Psychiatric exam: Normal Affect, Normal Mood - Skin Skin Exam: Dry, Normal Color, Warm Additional comments: right chest permacath dressing clean/dry/intact Assessment and Plan - Assessment and Plan (Free Text) Assessment: 33 yr old M with PMHx ESRD on HD, non compliant, was off HD for 2 months, admitted for hypertensive urgency and metacolic acidosis secondary to ESRD, fluid overload and anemia of chronic disease. Patient stable. Awaiting hemodialysis placement in the community. In meantime will decrease HD sessions to two a week on tuesday/tuesday, nephro agrees with plan. 1. ESRD on HD -scheduled HD MF(right chest permacath in place) -awaiting outpatient HD placement -patient has AV shunt placed in left arm (placement done in [facility], has not yet matured) -Nephro on board: Renvela 2,400 mg PO TID, continue with Hectorol; -Discussed with Dr Perdomo decreasing HD 2x a week and the possibility that if pt is fine on 2x per wk HD , we might be able to discharge him and just readmit him 2x/wk just for HD ( Tuesday and Tuesday ) - Dr Perdomo agreed. -renal diet 2. Hypertension -chronic, controlled -continue with hydralazine 50mg PO BID, coreg 12.5mg PO Q12 and clonidine 0.2mg PO BID 3. UTI-enterococcus faecalis -treatment completed (Amoxicillin PO) 4. Anemia of chronic disease -secondary to ESRD -hemoglobin at target, hold Epogen per nephro -f/u CBC 5. DVT prophylaxis -SCD's, Heparin 5,000 units SC Q12
--- NOTE | 2019-03-12 14:12 | CP.PCM.PN ---
Subjective - Date & Time of Evaluation Date of Evaluation: 03/12/19 Time of Evaluation: 01:30 - Subjective Subjective: Seen on dialysiss Appears comfortable Objective - Vital Signs/Intake and Output Vital Signs (last 24 hours): Temp Pulse Resp BP Pulse Ox 97.7 F 62 20 135/72 96 03/12/19 08:25 03/12/19 08:59 03/12/19 08:25 03/12/19 08:59 03/12/19 08:25 - Medications Medications: Current Medications Bacitracin (Bacitracin Oint) 1 applic TOP TID [facility] Last Admin: 03/12/19 12:12 Dose: 1 applic Carvedilol (Coreg) 12.5 mg PO Q12H [facility] Last Admin: 03/12/19 04:07 Dose: 12.5 mg Clonidine HCl (Catapres) 0.2 mg PO BID [facility] Last Admin: 03/12/19 08:59 Dose: 0.2 mg Doxercalciferol (Hectorol) 4 mcg IV MWF [facility] Last Admin: 03/12/19 12:13 Dose: 4 mcg Heparin Sodium (Porcine) (Heparin) 5,000 units SC Q12 [facility]; Protocol Last Admin: 03/12/19 09:00 Dose: 5,000 units Hydralazine HCl (Apresoline) 50 mg PO TID [facility] Last Admin: 03/12/19 12:07 Dose: Not Given Sevelamer Carbonate (Renvela) 2,400 mg PO TID [facility] Last Admin: 03/12/19 12:16 Dose: 2,400 mg - Labs Labs: 03/07/19 06:30 03/08/19 05:40 PT 13.8 Seconds (9.8-13.1) H 02/03/19 18:17 INR 1.2 02/03/19 18:17 APTT 52.3 Seconds (25.6-37.1) H 02/03/19 18:17 - Constitutional Appears: No Acute Distress - Head Exam Head Exam: ATRAUMATIC - Eye Exam Eye Exam: Normal appearance - ENT Exam ENT Exam: Mucous Membranes Moist - Respiratory Exam Respiratory Exam: NORMAL BREATHING PATTERN Additional comments: Lungs clear - Cardiovascular Exam Cardiovascular Exam: REGULAR RHYTHM Additional comments: No rub or S3 - GI/Abdominal Exam GI & Abdominal Exam: Soft - Extremities Exam Additional comments: No edema or yanosis Assessment and Plan - Assessment and Plan (Free Text) Assessment: ESRD on maintenance HD Tolerating dialusis well. IDW gain today was 2.4 Kg HTN well controlled Plan: We will try HD 2x /wk with close observation. Tentatively HD will be on Mondays & Fridays & extra dialysis if needed. Labs ordered for Wed
[2019-03-13 07:17] LABS: BASO # 0.1 K/uL (0.0-0.2); BASO % 1.7 % (0.0-2.0); EOS # 0.3 K/uL (0.0-0.7); EOS % 5.2 % (0.0-4.0); HEMOGLOBIN 12.4 g/dL (12.0-18.0); LYMPH # 1.1 K/uL (1.0-4.3); LYMPH % 18.2 % (20.0-40.0); MEAN CORPUSCULAR HEMOGLOBIN 29.5 pg (27.0-31.0); MEAN CORPUSCULAR HGB CONC 33.1 g/dL (33.0-37.0); MEAN PLATELET VOLUME 8.8 fl (7.2-11.7); MONO # 0.8 K/uL (0.0-0.8); MONO % 14.4 % (0.0-10.0); NEUT # 3.5 K/uL (1.8-7.0); NEUT % 60.5 % (50.0-75.0); NRBC % 0.1 % (0.0-0.0); RBC 4.22 Mil/uL (4.40-5.90); RED CELL DISTRIBUTION WIDTH 17.5 % (11.5-14.5); WHITE BLOOD COUNT 5.8 K/uL (4.8-10.8)
[2019-03-13 07:31] LABS: CALCIUM 8.8 mg/dL (8.4-10.2)
[2019-03-13] MEDS: Bacitracin OINT 15GM TOP SCH ×3 (09:02→17:40)
--- NOTE | 2019-03-13 13:51 | CP.PCM.PN ---
Subjective - Date & Time of Evaluation Date of Evaluation: 03/13/19 Time of Evaluation: 08:30 - Subjective Subjective: Patient seen and examined at bedside. Reports no chest pain, weakness or dizziness. Reports he tolerated hemodialysis well yesterday. Feels bored. Objective - Vital Signs/Intake and Output Vital Signs (last 24 hours): Temp Pulse Resp BP Pulse Ox 97.8 F 62 20 127/75 98 03/13/19 08:05 03/13/19 09:01 03/13/19 08:05 03/13/19 09:01 03/13/19 08:05 - Medications Medications: Current Medications Bacitracin (Bacitracin Oint) 1 applic TOP TID [facility] Last Admin: 03/13/19 09:02 Dose: 1 applic Carvedilol (Coreg) 12.5 mg PO Q12H [facility] Last Admin: 03/13/19 05:44 Dose: 12.5 mg Clonidine HCl (Catapres) 0.2 mg PO BID [facility] Last Admin: 03/13/19 09:00 Dose: 0.2 mg Doxercalciferol (Hectorol) 4 mcg IV MWF [facility] Last Admin: 03/12/19 12:13 Dose: 4 mcg Heparin Sodium (Porcine) (Heparin) 5,000 units SC Q12 [facility]; Protocol Last Admin: 03/13/19 09:00 Dose: 5,000 units Hydralazine HCl (Apresoline) 50 mg PO TID [facility] Last Admin: 03/13/19 09:01 Dose: 50 mg Sevelamer Carbonate (Renvela) 2,400 mg PO TID [facility] Last Admin: 03/13/19 08:59 Dose: 2,400 mg - Labs Labs: 03/13/19 05:45 03/13/19 05:45 PT 13.8 Seconds (9.8-13.1) H 02/03/19 18:17 INR 1.2 02/03/19 18:17 APTT 52.3 Seconds (25.6-37.1) H 02/03/19 18:17 - Constitutional Appears: No Acute Distress - Head Exam Head Exam: ATRAUMATIC, NORMOCEPHALIC - Eye Exam Eye Exam: EOMI - ENT Exam ENT Exam: Mucous Membranes Moist - Respiratory Exam Respiratory Exam: Clear to Ausculation Bilateral, NORMAL BREATHING PATTERN - Cardiovascular Exam Cardiovascular Exam: REGULAR RHYTHM, +S1, +S2 - GI/Abdominal Exam GI & Abdominal Exam: Soft, Normal Bowel Sounds. absent: Tenderness - Extremities Exam Extremities Exam: Full ROM. absent: Calf Tenderness - Neurological Exam Neurological Exam: Alert, Awake, Oriented x3 - Psychiatric Exam Psychiatric exam: Normal Affect, Normal Mood - Skin Skin Exam: Dry, Normal Color, Warm Additional comments: right chest permacath dressing clean/dry/intact Assessment and Plan - Assessment and Plan (Free Text) Assessment: 33 yr old M with PMHx ESRD on HD, non compliant, was off HD for 2 months, admitted for hypertensive urgency and metacolic acidosis secondary to ESRD, fluid overload and anemia of chronic disease. Patient stable. Awaiting hemodialysis placement in the community. In meantime will have HD sessions twice a week on tuesday/tuesday with close observation, nephro agrees with plan. 1. ESRD on HD -scheduled HD [facility](right chest permacath in place) -awaiting outpatient HD placement -patient has AV shunt placed in left arm (placement done in [facility], has not yet matured) -Nephro on board: Renvela 2,400 mg PO TID, continue with Hectorol; -Discussed with Dr Perdomo decreasing HD 2x a week and the possibility that if pt is fine on 2x per wk HD , we might be able to discharge him and just readmit him 2x/wk just for HD ( Tuesday and Tuesday ) - Dr Perdomo agreed. -renal diet -f/u BMP 2. Hypertension -chronic, controlled -continue with hydralazine 50mg PO BID, coreg 12.5mg PO Q12 and clonidine 0.2mg PO BID 3. UTI-enterococcus faecalis -treatment completed (Amoxicillin PO) 4. Anemia of chronic disease -secondary to ESRD -hemoglobin at target, hold Epogen per nephro -f/u CBC 5. DVT prophylaxis -SCD's, Heparin 5,000 units SC Q12
[2019-03-14] MEDS: Bacitracin OINT 15GM TOP SCH ×2 (09:01→12:53)
[2019-03-14] MEDS: Doxercalciferol 4 mcg/2 ml Inj IV SCH (09:04)
--- NOTE | 2019-03-14 12:30 | CP.PCM.PN ---
Subjective - Date & Time of Evaluation Date of Evaluation: 03/14/19 Time of Evaluation: 10:00 - Subjective Subjective: Patient seen and examined at bedside. In no acute distress. No events overnight. Denies chest pain, SOB or weakness. Objective - Vital Signs/Intake and Output Vital Signs (last 24 hours): Temp Pulse Resp BP Pulse Ox 97.8 F 65 18 157/84 H 97 03/14/19 07:59 03/14/19 09:11 03/14/19 07:59 03/14/19 09:11 03/14/19 07:59 - Medications Medications: Current Medications Amlodipine Besylate (Norvasc) 5 mg PO DAILY [facility] Last Admin: 03/14/19 09:10 Dose: 5 mg Bacitracin (Bacitracin Oint) 1 applic TOP TID [facility] Last Admin: 03/14/19 09:01 Dose: 1 applic Carvedilol (Coreg) 12.5 mg PO Q12H [facility] Last Admin: 03/14/19 05:14 Dose: 12.5 mg Clonidine HCl (Catapres) 0.2 mg PO BID [facility] Last Admin: 03/14/19 09:01 Dose: 0.2 mg Doxercalciferol (Hectorol) 4 mcg IV MWF [facility] Last Admin: 03/14/19 09:04 Dose: Not Given Heparin Sodium (Porcine) (Heparin) 5,000 units SC Q12 [facility]; Protocol Last Admin: 03/14/19 09:00 Dose: 5,000 units Hydralazine HCl (Apresoline) 50 mg PO TID [facility] Last Admin: 03/14/19 09:01 Dose: 50 mg Sevelamer Carbonate (Renvela) 2,400 mg PO TID [facility] Last Admin: 03/14/19 09:00 Dose: 2,400 mg - Labs Labs: 03/13/19 05:45 03/13/19 05:45 PT 13.8 Seconds (9.8-13.1) H 02/03/19 18:17 INR 1.2 02/03/19 18:17 APTT 52.3 Seconds (25.6-37.1) H 02/03/19 18:17 - Constitutional Appears: No Acute Distress - Head Exam Head Exam: ATRAUMATIC, NORMOCEPHALIC - Eye Exam Eye Exam: EOMI, PERRL - ENT Exam ENT Exam: Mucous Membranes Moist - Respiratory Exam Respiratory Exam: Clear to Ausculation Bilateral, NORMAL BREATHING PATTERN Additional comments: right chest permacath in place, dressing c/d/i - Cardiovascular Exam Cardiovascular Exam: REGULAR RHYTHM, +S1, +S2 - GI/Abdominal Exam GI & Abdominal Exam: Soft, Normal Bowel Sounds. absent: Tenderness - Extremities Exam Extremities Exam: Full ROM. absent: Calf Tenderness, Pedal Edema - Neurological Exam Neurological Exam: Alert, Awake, Oriented x3 - Psychiatric Exam Psychiatric exam: Normal Affect, Normal Mood - Skin Skin Exam: Dry, Warm Assessment and Plan - Assessment and Plan (Free Text) Assessment: 33 yr old M with PMHx ESRD on HD, non compliant, was off HD for 2 months, adm itted for hypertensive urgency and metacolic acidosis secondary to ESRD, fluid overload and anemia of chronic disease. Patient stable. Awaiting hemodialysis placement in the community. In meantime will have HD sessions twice a week on tuesday/tuesday with close observation, nephro agrees with plan. 1. ESRD on HD -scheduled HD [facility](right chest permacath in place) -awaiting outpatient HD placement -patient has AV shunt placed in left arm (placement done in [facility], has not yet matured) -Nephro on board: Renvela 2,400 mg PO TID, continue with Hectorol; -Discussed with Dr Perdomo decreasing HD 2x a week and the possibility that if pt is fine on 2x per wk HD , we might be able to discharge him and just readmit him 2x/wk just for HD ( Tuesday and Tuesday ) - Dr Perdomo agreed. -renal diet -f/u BMP 2. Hypertension -chronic, uncontrolled -continue with hydralazine 50mg PO BID, coreg 12.5mg PO Q12 and clonidine 0.2mg PO BID -start amlodipine 5mg PO QD 3. UTI-enterococcus faecalis -treatment completed (Amoxicillin PO) 4. Anemia of chronic disease -secondary to ESRD -hemoglobin at target, hold Epogen per nephro -f/u CBC 5. DVT prophylaxis -SCD's, Heparin 5,000 units SC Q12
--- NOTE | 2019-03-14 13:52 | CP.PCM.PN ---
Subjective - Date & Time of Evaluation Date of Evaluation: 03/14/19 Time of Evaluation: 01:25 - Subjective Subjective: Pt appears comfortable. Denies SOB ,chest discomfort Objective - Vital Signs/Intake and Output Vital Signs (last 24 hours): Temp Pulse Resp BP Pulse Ox 97.8 F 65 18 157/84 H 97 03/14/19 07:59 03/14/19 09:11 03/14/19 07:59 03/14/19 09:11 03/14/19 07:59 - Medications Medications: Current Medications Amlodipine Besylate (Norvasc) 5 mg PO DAILY [facility] Last Admin: 03/14/19 09:10 Dose: 5 mg Bacitracin (Bacitracin Oint) 1 applic TOP TID [facility] Last Admin: 03/14/19 12:53 Dose: 1 applic Carvedilol (Coreg) 12.5 mg PO Q12H [facility] Last Admin: 03/14/19 05:14 Dose: 12.5 mg Clonidine HCl (Catapres) 0.2 mg PO BID [facility] Last Admin: 03/14/19 09:01 Dose: 0.2 mg Doxercalciferol (Hectorol) 4 mcg IV MWF [facility] Last Admin: 03/14/19 09:04 Dose: Not Given Heparin Sodium (Porcine) (Heparin) 5,000 units SC Q12 [facility]; Protocol Last Admin: 03/14/19 09:00 Dose: 5,000 units Hydralazine HCl (Apresoline) 50 mg PO TID [facility] Last Admin: 03/14/19 09:01 Dose: 50 mg Sevelamer Carbonate (Renvela) 2,400 mg PO TID [facility] Last Admin: 03/14/19 12:52 Dose: 2,400 mg - Labs Labs: 03/13/19 05:45 03/13/19 05:45 PT 13.8 Seconds (9.8-13.1) H 02/03/19 18:17 INR 1.2 02/03/19 18:17 APTT 52.3 Seconds (25.6-37.1) H 02/03/19 18:17 - Constitutional Appears: No Acute Distress - Eye Exam Eye Exam: Normal appearance - ENT Exam ENT Exam: Mucous Membranes Moist - Extremities Exam Additional comments: No edema or cyanosis Assessment and Plan - Assessment and Plan (Free Text) Assessment: ESRD on maintenance HD BP is controlled Plan: Pt appears stable. Dialysis is held today in order to make transition to 2x wk dialysis if tolerated. abs are pending.
[2019-03-14 15:35] LABS: CALCIUM 8.2 mg/dL (8.4-10.2)
[2019-03-15] MEDS: Bacitracin OINT 15GM TOP SCH ×4 (10:16→17:20)
--- NOTE | 2019-03-15 12:42 | CP.PCM.PN ---
<Veda Vora - Last Filed: 03/15/19 12:39> Subjective - Date & Time of Evaluation Date of Evaluation: 03/15/19 Time of Evaluation: 08:30 - Subjective Subjective: Patient seen and examined at bedside. In no acute distress. Denies chest pain, SOB or muscular pain. Patient is aware of hemodialysis session resuming to 3 times a week. Objective - Vital Signs/Intake and Output Vital Signs (last 24 hours): Temp Pulse Resp BP Pulse Ox 97.8 F 65 20 146/81 95 03/15/19 08:11 03/15/19 08:11 03/15/19 08:11 03/15/19 08:11 03/15/19 08:11 - Medications Medications: Current Medications Amlodipine Besylate (Norvasc) 5 mg PO DAILY [facility] Last Admin: 03/14/19 09:10 Dose: 5 mg Bacitracin (Bacitracin Oint) 1 applic TOP TID [facility] Last Admin: 03/15/19 10:17 Dose: 1 applic Carvedilol (Coreg) 12.5 mg PO Q12H [facility] Last Admin: 03/15/19 05:25 Dose: 12.5 mg Clonidine HCl (Catapres) 0.2 mg PO BID [facility] Last Admin: 03/14/19 16:49 Dose: 0.2 mg Doxercalciferol (Hectorol) 4 mcg IV MWF [facility] Last Admin: 03/14/19 09:04 Dose: Not Given Heparin Sodium (Porcine) (Heparin) 5,000 units SC Q12 [facility]; Protocol Last Admin: 03/15/19 10:16 Dose: 5,000 units Hydralazine HCl (Apresoline) 50 mg PO TID [facility] Last Admin: 03/14/19 16:49 Dose: 50 mg Sevelamer Carbonate (Renvela) 2,400 mg PO TID [facility] Last Admin: 03/15/19 10:16 Dose: 2,400 mg - Labs Labs: 03/13/19 05:45 03/14/19 14:15 PT 13.8 Seconds (9.8-13.1) H 02/03/19 18:17 INR 1.2 02/03/19 18:17 APTT 52.3 Seconds (25.6-37.1) H 02/03/19 18:17 - Constitutional Appears: No Acute Distress - Head Exam Head Exam: NORMAL INSPECTION - Eye Exam Eye Exam: EOMI, PERRL - ENT Exam ENT Exam: Mucous Membranes Moist - Respiratory Exam Respiratory Exam: Clear to Ausculation Bilateral, NORMAL BREATHING PATTERN - Cardiovascular Exam Cardiovascular Exam: REGULAR RHYTHM, +S1, +S2 - GI/Abdominal Exam GI & Abdominal Exam: Soft, Normal Bowel Sounds - Extremities Exam Extremities Exam: Full ROM. absent: Calf Tenderness, Pedal Edema - Neurological Exam Neurological Exam: Alert, Awake, Oriented x3 - Psychiatric Exam Psychiatric exam: Normal Affect, Normal Mood - Skin Skin Exam: Dry, Normal Color Assessment and Plan - Assessment and Plan (Free Text) Assessment: 33 yr old M with PMHx ESRD on HD, non compliant, was off HD for 2 months, admitted for hypertensive urgency and metacolic acidosis secondary to ESRD, fluid overload and anemia of chronic disease. Patient stable. Awaiting hemodialysis placement in the community. Will resume hemodialysis sessions 3 times a week as patients kidney function did not tolerate less sessions at this time. 1. ESRD on HD -scheduled HD MWF (right chest permacath in place) -awaiting outpatient HD placement -patient has AV shunt placed in left arm (placement done in [facility], has not yet matured) -Nephro on board: Renvela 2,400 mg PO TID, continue with Hectorol; -Dr. Perdomo resume HD 3x a week -renal diet -f/u BMP 2. Hypertension -chronic, uncontrolled -continue with hydralazine 50mg PO BID, coreg 12.5mg PO Q12 and clonidine 0.2mg PO BID -amlodipine 5mg PO QD -monitor BP and adjust dose further PRN 3. UTI-enterococcus faecalis -treatment completed (Amoxicillin PO) 4. Anemia of chronic disease -secondary to ESRD -hemoglobin at target, hold Epogen per nephro -f/u CBC 5. DVT prophylaxis -SCD's, Heparin 5,000 units SC Q12 <Eden Mai - Last Filed: 03/15/19 16:10> Objective - Vital Signs/Intake and Output Vital Signs (last 24 hours): Temp Pulse Resp BP Pulse Ox 98.5 F 69 18 165/85 H 98 03/15/19 16:02 03/15/19 16:02 03/15/19 16:02 03/15/19 16:02 03/15/19 16:02 - Medications Medications: Current Medications Amlodipine Besylate (Norvasc) 5 mg PO DAILY [facility] Last Admin: 03/14/19 09:10 Dose: 5 mg Bacitracin (Bacitracin Oint) 1 applic TOP TID [facility] Last Admin: 03/15/19 13:01 Dose: 1 applic Carvedilol (Coreg) 12.5 mg PO Q12H [facility] Last Admin: 03/15/19 05:25 Dose: 12.5 mg Clonidine HCl (Catapres) 0.2 mg PO BID [facility] Last Admin: 03/14/19 16:49 Dose: 0.2 mg Doxercalciferol (Hectorol) 4 mcg IV MWF [facility] Last Admin: 03/14/19 09:04 Dose: Not Given Heparin Sodium (Porcine) (Heparin) 5,000 units SC Q12 [facility]; Protocol Last Admin: 03/15/19 10:16 Dose: 5,000 units Hydralazine HCl (Apresoline) 50 mg PO TID [facility] Last Admin: 03/14/19 16:49 Dose: 50 mg Sevelamer Carbonate (Renvela) 2,400 mg PO TID [facility] Last Admin: 03/15/19 13:00 Dose: 2,400 mg - Labs Labs: 03/13/19 05:45 03/15/19 14:15 PT 13.8 Seconds (9.8-13.1) H 02/03/19 18:17 INR 1.2 02/03/19 18:17 APTT 52.3 Seconds (25.6-37.1) H 02/03/19 18:17 Attending/Attestation - Attestation I have personally seen and examined this patient.: Yes I have fully participated in the care of the patient.: Yes I have reviewed all pertinent clinical information, including history, physical exam and plan: Yes Notes (Text): 1. ESRD on HD - Pt unable to tolerate 2x per week HD - will resume TIW - awaiting outpt HD placement - Pt has an AV shunt placed on the left arm - done in [facility] , has not yet matured, Permacath on Right Chest -cont Hectorol 2. Hypertensive Emergency/HTN - initially started on IV antihypertensives on admission - cont Hydralazine and Coreg, Clonidine - , Norvasc started yesterday 3. UTI- Enterococcus - completed treatment 4. Anemia of Chronic Renal Dis -cont Epogen and Venofer after HD 03/15/19 16:10
[2019-03-15 15:01] LABS: CALCIUM 8.3 mg/dL (8.4-10.2)
[2019-03-16 06:38] LABS: BASO # 0.1 K/uL (0.0-0.2); EOS # 0.3 K/uL (0.0-0.7); EOS % 5.5 % (0.0-4.0); HEMOGLOBIN 11.3 g/dL (12.0-18.0); LYMPH % 17.9 % (20.0-40.0); MEAN CELL VOLUME 88.3 fl (80.0-94.0); MEAN CORPUSCULAR HEMOGLOBIN 29.8 pg (27.0-31.0); MEAN CORPUSCULAR HGB CONC 33.8 g/dL (33.0-37.0); MEAN PLATELET VOLUME 8.8 fl (7.2-11.7); MONO # 0.7 K/uL (0.0-0.8); MONO % 12.7 % (0.0-10.0); NEUT # 3.5 K/uL (1.8-7.0); NEUT % 62.9 % (50.0-75.0); NRBC % 0.1 % (0.0-0.0); RBC 3.79 Mil/uL (4.40-5.90); RED CELL DISTRIBUTION WIDTH 16.8 % (11.5-14.5); WHITE BLOOD COUNT 5.6 K/uL (4.8-10.8)
[2019-03-16 06:59] LABS: CALCIUM 8.2 mg/dL (8.4-10.2)
[2019-03-16] MEDS: Bacitracin OINT 15GM TOP SCH ×3 (10:58→17:56)
[2019-03-16] MEDS: Doxercalciferol 4 mcg/2 ml Inj IV SCH (13:44)
--- NOTE | 2019-03-16 14:18 | CP.PCM.PN ---
<Veda Vora - Last Filed: 03/16/19 14:31> Subjective - Date & Time of Evaluation Date of Evaluation: 03/16/19 Time of Evaluation: 08:30 - Subjective Subjective: Patient seen and examined at bedside. In no acute distress. No acute events overnight. Patient has complaint of abdominal pain, located in left lower quadrant, occurred right after eating. Associated symptoms are abdominal bloating. Denies nausea, vomiting or diarrhea. Reports normal soft stool output this AM. Objective - Vital Signs/Intake and Output Vital Signs (last 24 hours): Temp Pulse Resp BP Pulse Ox 97.8 F 68 20 135/65 99 03/16/19 08:14 03/16/19 10:59 03/16/19 08:14 03/16/19 10:59 03/16/19 08:14 - Medications Medications: Current Medications Amlodipine Besylate (Norvasc) 5 mg PO DAILY [facility] Last Admin: 03/16/19 10:59 Dose: 5 mg Bacitracin (Bacitracin Oint) 1 applic TOP TID [facility] Last Admin: 03/16/19 10:58 Dose: 1 applic Carvedilol (Coreg) 12.5 mg PO Q12@0000,1200 [facility] Last Admin: 03/16/19 13:43 Dose: Not Given Clonidine HCl (Catapres) 0.2 mg PO BID [facility] Last Admin: 03/16/19 10:58 Dose: 0.2 mg Doxercalciferol (Hectorol) 4 mcg IV MWF [facility] Last Admin: 03/16/19 13:44 Dose: 4 mcg Heparin Sodium (Porcine) (Heparin) 5,000 units SC Q12 [facility]; Protocol Last Admin: 03/16/19 10:59 Dose: 5,000 units Hydralazine HCl (Apresoline) 50 mg PO TID [facility] Last Admin: 03/16/19 13:42 Dose: Not Given Sevelamer Carbonate (Renvela) 2,400 mg PO TID [facility] Last Admin: 03/16/19 13:45 Dose: 2,400 mg - Labs Labs: 03/16/19 05:25 03/16/19 05:25 PT 13.8 Seconds (9.8-13.1) H 02/03/19 18:17 INR 1.2 02/03/19 18:17 APTT 52.3 Seconds (25.6-37.1) H 02/03/19 18:17 - Constitutional Appears: No Acute Distress - Head Exam Head Exam: ATRAUMATIC, NORMOCEPHALIC - Eye Exam Eye Exam: EOMI - ENT Exam ENT Exam: Mucous Membranes Moist - Respiratory Exam Respiratory Exam: Clear to Ausculation Bilateral, NORMAL BREATHING PATTERN - Cardiovascular Exam Cardiovascular Exam: REGULAR RHYTHM, +S1, +S2 - GI/Abdominal Exam GI & Abdominal Exam: Soft, Tenderness (LLQ), Normal Bowel Sounds Additional comments: palpable superficial hematoma in bilateral lower quadrants - Extremities Exam Extremities Exam: Full ROM. absent: Calf Tenderness, Pedal Edema - Neurological Exam Neurological Exam: Alert, Awake, Oriented x3 - Psychiatric Exam Psychiatric exam: Normal Affect, Normal Mood - Skin Skin Exam: Dry, Normal Color, Warm Assessment and Plan - Assessment and Plan (Free Text) Assessment: 33 yr old M with PMHx ESRD on HD, non compliant, was off HD for 2 months, admitted for hypertensive urgency and metacolic acidosis secondary to ESRD, fluid overload and anemia of chronic disease. Patient stable. Awaiting hemodialysis placement in the community. Hemodialysis sessions scheduled 3 times a week as patients kidney function did not tolerate less sessions at this time. 1. ESRD on HD -scheduled HD MWF (right chest permacath in place) -awaiting outpatient HD placement -patient has AV shunt placed in left arm (placement done in [facility], has not yet matured) -Nephro on board: Renvela 2,400 mg PO TID, continue with Hectorol; -Dr. Perdomo resume HD 3x a week -renal diet -f/u BMP 2. Left lower quadrant abdominal pain -acute on chronic, stable -Hepatitis panel negative 03/07/19 -Pantoprazole 40 mg PO QD, maalox 30mg PO once -f/u abd US, H. Pylori, UA, UCx 3. Hypertension -chronic, uncontrolled -continue with hydralazine 50mg PO BID, coreg 12.5mg PO Q12 and clonidine 0.2mg PO BID -amlodipine 5mg PO QD -monitor BP and adjust dose further PRN 4. UTI-enterococcus faecalis -treatment completed (Amoxicillin PO) 5. Anemia of chronic disease -secondary to ESRD -hemoglobin at target, hold Epogen per nephro -f/u CBC 6. DVT prophylaxis -SCD's, Heparin 5,000 units SC Q12 <Mai,Eden Denise - Last Filed: 03/16/19 17:40> Objective - Vital Signs/Intake and Output Vital Signs (last 24 hours): Temp Pulse Resp BP Pulse Ox 98 F 53 L 20 97/74 L 95 03/16/19 16:19 03/16/19 16:19 03/16/19 16:19 03/16/19 16:19 03/16/19 16:19 - Medications Medications: Current Medications Amlodipine Besylate (Norvasc) 5 mg PO DAILY [facility] Last Admin: 03/16/19 10:59 Dose: 5 mg Bacitracin (Bacitracin Oint) 1 applic TOP TID [facility] Last Admin: 03/16/19 10:58 Dose: 1 applic Carvedilol (Coreg) 12.5 mg PO Q12@0000,1200 [facility] Last Admin: 03/16/19 13:43 Dose: Not Given Clonidine HCl (Catapres) 0.2 mg PO BID [facility] Last Admin: 03/16/19 10:58 Dose: 0.2 mg Doxercalciferol (Hectorol) 4 mcg IV MWF [facility] Last Admin: 03/16/19 13:44 Dose: 4 mcg Heparin Sodium (Porcine) (Heparin) 5,000 units SC Q12 [facility]; Protocol Last Admin: 03/16/19 10:59 Dose: 5,000 units Hydralazine HCl (Apresoline) 50 mg PO TID [facility] Last Admin: 03/16/19 13:42 Dose: Not Given Sodium Chloride (Sodium Chloride 0.9%) 1,000 mls @ 100 mls/hr IV .Q10H [facility] Stop: 03/17/19 17:32 Pantoprazole Sodium (Protonix Ec Tab) 40 mg PO DAILY [facility] Last Admin: 03/16/19 16:28 Dose: 40 mg Sevelamer Carbonate (Renvela) 2,400 mg PO TID [facility] Last Admin: 03/16/19 17:00 Dose: Not Given - Labs Labs: 03/16/19 05:25 03/16/19 05:25 PT 13.8 Seconds (9.8-13.1) H 02/03/19 18:17 INR 1.2 02/03/19 18:17 APTT 52.3 Seconds (25.6-37.1) H 02/03/19 18:17 Attending/Attestation - Attestation I have personally seen and examined this patient.: Yes I have fully participated in the care of the patient.: Yes I have reviewed all pertinent clinical information, including history, physical exam and plan: Yes Notes (Text): ESRD on HD Left Sided Abd Pain, acute HTN - complained of sudden severe left sided abd pain , tenderness to palpation - CT of the abd and pelvis - start PPI - check CBC, CMP, Lipase, Amylase - Urinalysis -Pain mgt -Pt unable to tolerate 2x wk HD, now back on TIW - cont HTN meds 03/16/19 17:39
--- NOTE | 2019-03-16 14:30 | CP.PCM.PN ---
Subjective - Date & Time of Evaluation Date of Evaluation: 03/16/19 Time of Evaluation: 02:00 - Subjective Subjective: Seen on dialysis. C/o lt sided abdominal pain No nausea or vomiting. Objective - Vital Signs/Intake and Output Vital Signs (last 24 hours): Temp Pulse Resp BP Pulse Ox 97.8 F 68 20 135/65 99 03/16/19 08:14 03/16/19 10:59 03/16/19 08:14 03/16/19 10:59 03/16/19 08:14 - Medications Medications: Current Medications Amlodipine Besylate (Norvasc) 5 mg PO DAILY [facility] Last Admin: 03/16/19 10:59 Dose: 5 mg Bacitracin (Bacitracin Oint) 1 applic TOP TID [facility] Last Admin: 03/16/19 10:58 Dose: 1 applic Carvedilol (Coreg) 12.5 mg PO Q12@0000,1200 [facility] Last Admin: 03/16/19 13:43 Dose: Not Given Clonidine HCl (Catapres) 0.2 mg PO BID [facility] Last Admin: 03/16/19 10:58 Dose: 0.2 mg Doxercalciferol (Hectorol) 4 mcg IV MWF [facility] Last Admin: 03/16/19 13:44 Dose: 4 mcg Heparin Sodium (Porcine) (Heparin) 5,000 units SC Q12 [facility]; Protocol Last Admin: 03/16/19 10:59 Dose: 5,000 units Hydralazine HCl (Apresoline) 50 mg PO TID [facility] Last Admin: 03/16/19 13:42 Dose: Not Given Sevelamer Carbonate (Renvela) 2,400 mg PO TID [facility] Last Admin: 03/16/19 13:45 Dose: 2,400 mg - Labs Labs: 03/16/19 05:25 03/16/19 05:25 PT 13.8 Seconds (9.8-13.1) H 02/03/19 18:17 INR 1.2 02/03/19 18:17 APTT 52.3 Seconds (25.6-37.1) H 02/03/19 18:17 - Constitutional Appears: In Acute Distress - Head Exam Head Exam: ATRAUMATIC - Eye Exam Eye Exam: Normal appearance - ENT Exam ENT Exam: Mucous Membranes Moist - Neck Exam Additional comments: Neck supple - Respiratory Exam Respiratory Exam: NORMAL BREATHING PATTERN Additional comments: Lungs clear - Cardiovascular Exam Cardiovascular Exam: REGULAR RHYTHM Additional comments: No rub or S3 - GI/Abdominal Exam GI & Abdominal Exam: Guarding Additional comments: Marked tendernedd & guarding noted over LLQ. - Extremities Exam Additional comments: No edema or cyanosis Assessment and Plan - Assessment and Plan (Free Text) Assessment: ESRD on maintenance HD Labs reviewed. Dialysis was ordered for yesterday . Pt will not be able to tolerate 2 x a wk dialysis. More over Pt has pericardial effusion ( uremic, without tamponad ) which had decreased from large to small to medium with dialysis treatments. Will continue with 3x wk dialysis. Abdominal pain. Pt is scheduled for abdominal US after dialysis. BP is controlled Hb is lower than befor but stable. Throbocytopenia ? HIT Plan: Continue HD MWF
[2019-03-16] MEDS ORDERED: Alum-Mag Hydrox-Simethicone Susp (30 mL) PO ONE (14:43)
[2019-03-16] MEDS: Pantoprazole 40 mg EC Tab PO SCH (16:28)
[2019-03-16] MEDS ORDERED: Oxycodone/Acetaminophen 5/325 mg Tab PO ONE (16:38)
[2019-03-16] MEDS ORDERED: Oxycodone/Acetaminophen 5/325 mg Tab ONE (16:57)
[2019-03-16] MEDS ORDERED: Iohexol 240 (50 ml) PO ONE (17:26)
[2019-03-16] MEDS ORDERED: Sodium Chloride 0.9% 1,000 ML IV SCH (17:45)
[2019-03-16 17:53] LABS: HEMOGLOBIN 10.9 g/dL (12.0-18.0); MEAN CELL VOLUME 88.8 fl (80.0-94.0); MEAN CORPUSCULAR HEMOGLOBIN 29.3 pg (27.0-31.0); RBC 3.73 Mil/uL (4.40-5.90); RED CELL DISTRIBUTION WIDTH 16.8 % (11.5-14.5)
[2019-03-16 18:28] LABS: ALB/GLOB RATIO 1.5 (1.0-2.1); ALBUMIN 4.8 g/dL (3.5-5.0); CALCIUM 8.7 mg/dL (8.4-10.2)
[2019-03-16] MEDS ORDERED: Sodium Chloride 0.9% 250 ML IV SCH (19:30)
[2019-03-16] MEDS ORDERED: Sodium Chloride 0.9% 50 ML IV ONE (19:37)
[2019-03-16] MEDS ORDERED: Iodixanol 320 MG/ML 100 ML BOTTLE IV ONE (19:37)
[2019-03-16 19:43] LABS: ABG ALLEN TEST YES; ARTERIAL BLOOD GAS HCO3 22.7 mmol/L (21-28); ARTERIAL BLOOD GAS O2 SAT 98.5 % (95-98); ARTERIAL BLOOD GAS PCO2 33 mm/Hg (35-45); ARTERIAL BLOOD GAS PH 7.41 (7.35-7.45); ARTERIAL BLOOD GAS PO2 94 mm/Hg (80-100); ARTERIAL BLOOD GAS TCO2 21.9 mmol/L (22-28)
[2019-03-16] MEDS ORDERED: Sodium Chloride 0.9% 500 ML IV ONE (21:00)
[2019-03-16 21:53] LABS: INR 1.1; PROTHROMBIN TIME 12.9 Seconds (9.8-13.1)
[2019-03-16 21:56] LABS: PARTIAL THROMBOPLASTIN TIME 40.9 Seconds (25.6-37.1)
--- NOTE | 2019-03-17 00:32 | CP.PCM.PN ---
Subjective - Date & Time of Evaluation Date of Evaluation: 03/17/19 Time of Evaluation: 00:32 - Subjective Subjective: Discussed case with resident.Reviewed ct and labsA.large renal and retroperoteneal hematoma stable Hgb(higher than admission) In a Dialysis pt with no hx trauma and end stage renal disease. Suggest. Stop all anticoagulation,and monitor HGB(10.9 now 8.9 on admission) and vital signs.Consider hematology consult.If hgb drops consider IR consult for elective embolization of renal arteryTransfuse as needed.If situation worsens we do not have the expertise [place] [facility] [place] of large expanding Hematoma consider transfer to trauma center or tertiary care hosp. [facility] Objective - Vital Signs/Intake and Output Vital Signs (last 24 hours): Temp Pulse Resp BP Pulse Ox 97.3 F L 88 20 89/60 L 99 03/16/19 18:40 03/16/19 18:40 03/16/19 18:40 03/16/19 18:40 03/16/19 18:40 - Medications Medications: Current Medications Amlodipine Besylate (Norvasc) 5 mg PO DAILY [facility] Last Admin: 03/16/19 10:59 Dose: 5 mg Bacitracin (Bacitracin Oint) 1 applic TOP TID [facility] Last Admin: 03/16/19 17:56 Dose: 1 applic Carvedilol (Coreg) 12.5 mg PO Q12@0000,1200 [facility] Last Admin: 03/16/19 13:43 Dose: Not Given Clonidine HCl (Catapres) 0.2 mg PO BID [facility] Last Admin: 03/16/19 17:54 Dose: Not Given Doxercalciferol (Hectorol) 4 mcg IV MWF [facility] Last Admin: 03/16/19 13:44 Dose: 4 mcg Heparin Sodium (Porcine) (Heparin) 5,000 units SC Q12 [facility]; Protocol Last Admin: 03/16/19 21:37 Dose: Not Given Hydralazine HCl (Apresoline) 50 mg PO TID [facility] Last Admin: 03/16/19 17:55 Dose: Not Given Sodium Chloride (Sodium Chloride 0.9%) 1,000 mls @ 100 mls/hr IV .Q10H [facility] Stop: 03/17/19 17:32 Last Admin: 03/16/19 17:56 Dose: 100 mls/hr Piperacillin Sod/Tazobactam (Sod 2.25 gm/ Sodium Chloride) 100 mls @ 100 mls/hr IVPB Q8 [facility]; Protocol Last Admin: 03/16/19 19:22 Dose: 100 mls/hr Vancomycin HCl 750 mg/ Sodium (Chloride) 250 mls @ 166.667 mls/hr IVPB Q24H [facility]; Protocol Last Admin: 03/16/19 21:41 Dose: 166.667 mls/hr Sodium Chloride (Sodium Chloride 0.9%) 250 mls @ 999 mls/hr IV .Q16M [facility] Stop: 03/17/19 19:17 Metronidazole (Flagyl 500mg/100ml Ns) 100 mls @ 100 mls/hr IVPB Q8 [facility]; Protocol Last Admin: 03/17/19 00:00 Dose: 100 mls/hr Morphine Sulfate (Morphine) 4 mg IVP Q6 PRN PRN Reason: Pain, severe (8-10) Last Admin: 03/16/19 21:30 Dose: 4 mg Morphine Sulfate (Morphine) 2 mg IVP Q6 PRN PRN Reason: Pain, moderate (4-7) Pantoprazole Sodium (Protonix Ec Tab) 40 mg PO DAILY [facility] Last Admin: 03/16/19 16:28 Dose: 40 mg Sevelamer Carbonate (Renvela) 2,400 mg PO TID [facility] Last Admin: 03/16/19 17:00 Dose: Not Given - Labs Labs: 03/16/19 17:41 03/16/19 17:41 PT 12.9 Seconds (9.8-13.1) 03/16/19 21:35 INR 1.1 03/16/19 21:35 APTT 40.9 Seconds (25.6-37.1) H 03/16/19 21:35
[2019-03-17] MEDS ORDERED: Sodium Chloride 0.9% 500 ML IV ONE (00:53)
[2019-03-17 06:32] LABS: BASO % 0.3 % (0.0-2.0); LYMPH % 7.1 % (20.0-40.0); MEAN CORPUSCULAR HEMOGLOBIN 29.3 pg (27.0-31.0); MEAN CORPUSCULAR HGB CONC 32.9 g/dL (33.0-37.0); MEAN PLATELET VOLUME 9.2 fl (7.2-11.7); MONO # 1.1 K/uL (0.0-0.8); MONO % 7.7 % (0.0-10.0); NEUT # 11.6 K/uL (1.8-7.0); NEUT % 84.9 % (50.0-75.0); NRBC % 0.1 % (0.0-0.0); RBC 2.25 Mil/uL (4.40-5.90); RED CELL DISTRIBUTION WIDTH 16.7 % (11.5-14.5); WHITE BLOOD COUNT 13.7 K/uL (4.8-10.8)
[2019-03-17 06:39] LABS: CALCIUM 7.4 mg/dL (8.4-10.2)
[2019-03-17 06:43] LABS: HEMOGLOBIN 6.6 g/dL (12.0-18.0)
[2019-03-17] MEDS ORDERED: Desmopressin 4 mcg/ml Inj (10 ml) IM ONE (07:28)
[2019-03-17] MEDS ORDERED: Sodium Chloride 0.9% 1,000 ML IV SCH (07:39)
[2019-03-17] MEDS ORDERED: Desmopressin 20 MCG in Sodium Chloride 0.9% 50 ML IVPB ONE (08:00)
--- NOTE | 2019-03-17 08:25 | CP.CCUPN ---
CCU Subjective - Physician Review Subjective (Free Text): ICU transfer from for active bleeding and hypotension: 33M with ESRD on HD admitted 02/03/19 for Sob and weakness, found to be markedly uremic and acidotic due to HD noncompliance; transferred to Telemetry unit yesterday for acute onset left sided abdominal pain, found to have large L renal hematoma with active bleeding into the renal parenchyma and iliopsoas, has become hypotensive, Hgb dropped from 11.3 to 6.6, moderate coagulopathy noted as well with PTT elevation to 40.9. Orders noted for dDAVP, PRBCs and FFP. Other plans being arranged for IR embolization of bleeding vessel. Patient is presently awake and does not appear distressed, lying in bed, R lateral recumbent position, still has Left sided lateral mid-quadrant abd pain radiating to the front. Has dizziness when he stands, denies any N/V, chest discomfort or SOB. Afebrile, no fever spikes, no arrhythmias noted. BP 96/62, 82, 20, 99% SPo2 on RA. ROS: No other pertinent negs or positives on 10+ system review. PMSFH: All other Nursing and physician documentation reviewed to date; no new pertinent info noted relevant to current medical problems. Allergies: NKDA IN-hospital Meds: reviewed. EXAM- HEENT: no icterus, no gaze preference, pupils equal and reactive 3 mm size, no nystagmus. NECK: supple, no visible JVD, no adenopathy, thyroid non- palpable. CHEST: decreased BS at the bases, no wheezes audible bilaterally. R SC permacath HEART: regular, distant, tachy S1S2, no rubs or murmurs noted ABD: soft, no tympany, no fluid wave, no guarding or focal tenderness; BS hypoactive. EXT: no edema, no calf tenderness or palpable cords, distal pulses intact and symmetrical. NEURO: no gross focal motor deficits. SKIN: no rashes, warm and dry LABS: WBC= 13.7 HGB= 6.6 PLTs= 128K PTT= 40.9 yesterday Na= 135 K= 5.9 CL= 101 HCO3= 19 BUN/Cr= 41/7.5 BS= 106 CTAP results reviewed. IMPRESSION / MAJOR PROBLEMS NOW: 1. Left Renal Pelvis Hematoma 2. Hypotension / Hypovolemic Shock, 2 Acute Anemia, doubt Severe Sepsis/ shock physiology 3. Acute Anemia with coagulopathy 4. Hyperkalemia and ESRD on HD 5. s/p Accelerated Hypotension PLAN: 1. PRBCs, FFP, dDAVP; check repeat HGb Q6H till stable. Check serial Lactates Q6H till normalized. 2. Mentation intact, so far no need for vasopresors. 3. IR / Urology consulted by primary team; mgmt. plans reviewed and noted. 4. All anticoagulants (Heparin SC); and antihypertensive meds on hold for now. 5. May need additional HD today.
[2019-03-17] MEDS ORDERED: Iodixanol 320 MG/ML 100 ML BOTTLE IV ONE (08:51)
[2019-03-17] MEDS ORDERED: Lidocaine Hydrochloride 1% 10 ML ONE (08:52)
--- NOTE | 2019-03-17 09:21 | CP.PCM.PN ---
Subjective - Date & Time of Evaluation Date of Evaluation: 03/17/19 Time of Evaluation: 08:00 - Subjective Subjective: Patient seen and examined at bedside. Reports left lower quadrant pain persists. Reports mild weakness. Denies chest pain, SOB or dizziness. Discussed with patient findings of abd/pelvis CT and plan for transfusion of blood products and IR procedure, patient agrees with plan and signed consent form. Objective - Vital Signs/Intake and Output Vital Signs (last 24 hours): Temp Pulse Resp BP Pulse Ox 98.9 F 97 H 20 121/80 99 03/17/19 08:39 03/17/19 08:39 03/17/19 08:39 03/17/19 08:39 03/17/19 08:39 - Medications Medications: Current Medications Bacitracin (Bacitracin Oint) 1 applic TOP TID [facility] Last Admin: 03/16/19 17:56 Dose: 1 applic Doxercalciferol (Hectorol) 4 mcg IV MWF [facility] Last Admin: 03/16/19 13:44 Dose: 4 mcg Piperacillin Sod/Tazobactam (Sod 2.25 gm/ Sodium Chloride) 100 mls @ 100 mls/hr IVPB Q8 [facility]; Protocol Last Admin: 03/17/19 00:10 Dose: 100 mls/hr Vancomycin HCl 750 mg/ Sodium (Chloride) 250 mls @ 166.667 mls/hr IVPB Q24H [facility]; Protocol Last Admin: 03/16/19 21:41 Dose: 166.667 mls/hr Sodium Chloride (Sodium Chloride 0.9%) 250 mls @ 999 mls/hr IV .Q16M [facility] Stop: 03/17/19 19:17 Metronidazole (Flagyl 500mg/100ml Ns) 100 mls @ 100 mls/hr IVPB Q8 [facility]; Protocol Last Admin: 03/17/19 00:00 Dose: 100 mls/hr Sodium Chloride (Sodium Chloride 0.9%) 1,000 mls @ 150 mls/hr IV .Q6H40M [facility] Stop: 03/17/19 17:32 Morphine Sulfate (Morphine) 2 mg IVP Q6 PRN PRN Reason: Pain, moderate (4-7) Pantoprazole Sodium (Protonix Ec Tab) 40 mg PO DAILY [facility] Last Admin: 03/16/19 16:28 Dose: 40 mg Sevelamer Carbonate (Renvela) 2,400 mg PO TID [facility] Last Admin: 03/16/19 17:00 Dose: Not Given - Labs Labs: 03/17/19 05:21 03/17/19 05:21 PT 12.9 Seconds (9.8-13.1) 03/16/19 21:35 INR 1.1 03/16/19 21:35 APTT 40.9 Seconds (25.6-37.1) H 03/16/19 21:35 - Constitutional Appears: Other (ill, uncomfortable) - Head Exam Head Exam: ATRAUMATIC, NORMOCEPHALIC - Eye Exam Eye Exam: EOMI - ENT Exam ENT Exam: Mucous Membranes Moist - Neck Exam Neck Exam: Full ROM - Respiratory Exam Respiratory Exam: Clear to Ausculation Bilateral, NORMAL BREATHING PATTERN - Cardiovascular Exam Cardiovascular Exam: REGULAR RHYTHM, +S1, +S2 - GI/Abdominal Exam GI & Abdominal Exam: Soft, Tenderness (severe tenderness to palpation in LLQ), Normal Bowel Sounds - Extremities Exam Extremities Exam: Full ROM. absent: Calf Tenderness, Pedal Edema - Back Exam Back Exam: absent: CVA tenderness (L), CVA tenderness (R) - Neurological Exam Neurological Exam: Alert, Awake, CN II-XII Intact, Oriented x3 - Psychiatric Exam Psychiatric exam: Normal Affect, Normal Mood - Skin Skin Exam: Dry, Pallor (mild), Warm Assessment and Plan - Assessment and Plan (Free Text) Assessment: 33 yr old M with PMHx ESRD on HD, non compliant, was off HD for 2 months, admitted for hypertensive urgency and metacolic acidosis secondary to ESRD, fluid overload and anemia of chronic disease. Awaiting hemodialysis placement in the community. Hemodialysis sessions scheduled 3 times a week as patients kidney function did not tolerate less sessions at this time. Yesterday evening patient experienced acute onset severe LLQ pain with hypotension, leukocytosis and worsening anemia, abd/pelvis CT showed large left renal hematoma with extravasation of contrast into hematoma/renal parenchyma. Urology consulted and recommendation was to stop anticoagulation and monitor Hgb, consult IR for elective embolization or renal artery if Hgb drops. This AM Hgb dropped to 6.6, IR consulted and will proceed with renal artery embolization, orders placed for transfusion of 2 units pRBC's, 2 units FFP, DDAVP, IVF and transfer to ICU. 1. Anemia of blood loss secondary to Active retroperitoneal bleed -acute, symptomatic -03/16/19 ABd/Pelvis CT : large left renal and perinephric hematoma with ext ravasation of contrast into hematoma/renal parenchyma. -Hgb dropped from 11.3 to 6.6 -stat transfusion 2 units pRBC's, 2 units FFP -stat DDAVP -transfer to ICU -Urology consult: Dr. Melchor: stop anticoagulation and monitor Hgb, consult IR for elective embolization or renal artery if Hgb drops -stat consult IR Dr. Guerra: will proceed with renal artery embolization this AM -f/u repeat CBC, CMP 2. ESRD on HD -scheduled HD MWF (right chest permacath in place) -awaiting outpatient HD placement -patient has AV shunt placed in left arm (placement done in [facility], has not yet matured) -Nephro on board: Renvela 2,400 mg PO TID, continue with Hectorol; -Dr. Perdomo resume HD 3x a week, HD scheduled for today -renal diet -f/u BMP 3. Left lower quadrant abdominal pain -acute, secondary to large left renal hematoma -IR for renal artery embolization today -Hepatitis panel negative 03/07/19 -f/u repeat Abd/Pelvis CT s/p IR procedure 4. Hypertension -chronic, controlled, patient hypotensive secondary to anemia of blood loss -hold medications for now (hydralazine 50mg PO BID, coreg 12.5mg PO Q12 and clonidine 0.2mg PO BID, amlodipine 5mg PO QD) -monitor BP and adjust dose further PRN 5. UTI-enterococcus faecalis -treatment completed (Amoxicillin PO) -f/u repeat UA, UCx 6. DVT prophylaxis -SCD's (patient with active retroperitoneal bleed)
[2019-03-17 09:34] LABS: ANISOCYTOSIS SLIGHT; BANDS 2 % (0-2); HYPOCHROMIC SLIGHT; LARGE PLATELETS PRESENT; LYMPHOCYTE 8 % (20-50); MONOCYTE 5 % (0-10); NEUTROPHIL 85 % (42-75); TOTAL CELLS COUNTED 100
[2019-03-17 09:54] LABS: PLATELET COUNT 128 K/uL (130-400)
--- NOTE | 2019-03-17 11:07 | PCM.SURG1 ---
Surgeon's Initial Post Op Note - Surgeon's Notes Surgeon: Elizabeth Geophysics Scientist: None Type of Anesthesia: Local Pre-Operative Diagnosis: Lef renal/retroperitoneum bleed Operative Findings: Multiple small arterial bleed from segmental left renal arterial branches. Post-Operative Diagnosis: Same Operation Performed: Left renal arterial segmental branch embolization with 2x2mm and 1x3mm coil and artery embolization with 700-900 particles. Specimen/Specimens Removed: None Estimated Blood Loss: EBL {In ML}: 5 Date of Surgery/Procedure: 03/17/19 Time of Surgery/Procedure: 10:00
[2019-03-17 11:10] LABS: PLATELET ESTIMATE NORMAL (NORMAL)
--- NOTE | 2019-03-17 12:08 | CP.PCM.PN ---
Subjective - Date & Time of Evaluation Date of Evaluation: 03/17/19 Time of Evaluation: 11:59 - Subjective Subjective: Pt had arterial embolization of bleeding renal arteries due to Retroperoteneal bleed. Pt appears stable. if not stabalized with embolization. Suggest transfer to tertiary center i Ocult tumor cannot be ruled out. Discussed with dr michael Melchor Objective - Vital Signs/Intake and Output Vital Signs (last 24 hours): Temp Pulse Resp BP Pulse Ox 99 F 85 18 130/81 100 03/17/19 09:15 03/17/19 09:15 03/17/19 09:15 03/17/19 09:15 03/17/19 09:15 - Medications Medications: Current Medications Bacitracin (Bacitracin Oint) 1 applic TOP TID [facility] Last Admin: 03/16/19 17:56 Dose: 1 applic Doxercalciferol (Hectorol) 4 mcg IV MWF [facility] Last Admin: 03/16/19 13:44 Dose: 4 mcg Piperacillin Sod/Tazobactam (Sod 2.25 gm/ Sodium Chloride) 100 mls @ 100 mls/hr IVPB Q8 [facility]; Protocol Last Admin: 03/17/19 00:10 Dose: 100 mls/hr Vancomycin HCl 750 mg/ Sodium (Chloride) 250 mls @ 166.667 mls/hr IVPB Q24H [facility]; Protocol Last Admin: 03/16/19 21:41 Dose: 166.667 mls/hr Sodium Chloride (Sodium Chloride 0.9%) 250 mls @ 999 mls/hr IV .Q16M [facility] Stop: 03/17/19 19:17 Metronidazole (Flagyl 500mg/100ml Ns) 100 mls @ 100 mls/hr IVPB Q8 [facility]; Protocol Last Admin: 03/17/19 00:00 Dose: 100 mls/hr Sodium Chloride (Sodium Chloride 0.9%) 1,000 mls @ 150 mls/hr IV .Q6H40M [facility] Stop: 03/17/19 17:32 Morphine Sulfate (Morphine) 2 mg IVP Q6 PRN PRN Reason: Pain, moderate (4-7) Pantoprazole Sodium (Protonix Ec Tab) 40 mg PO DAILY [facility] Last Admin: 03/16/19 16:28 Dose: 40 mg Sevelamer Carbonate (Renvela) 2,400 mg PO TID [facility] Last Admin: 03/16/19 17:00 Dose: Not Given - Labs Labs: 03/17/19 05:21 03/17/19 05:21 PT 12.9 Seconds (9.8-13.1) 03/16/19 21:35 INR 1.1 03/16/19 21:35 APTT 40.9 Seconds (25.6-37.1) H 03/16/19 21:35
[2019-03-17] MEDS: Bacitracin OINT 15GM TOP SCH ×2 (13:00→16:39)
[2019-03-17] MEDS: Pantoprazole 40 mg EC Tab PO SCH (13:01)
[2019-03-17] MEDS: metroNIDAZOLE 500mg/100ml NS 100 ML IVPB SCH ×3 (13:12→22:52)
[2019-03-17 15:43] LABS: MEAN CELL VOLUME 90.5 fl (80.0-94.0); MEAN CORPUSCULAR HGB CONC 34.2 g/dL (33.0-37.0); RED CELL DISTRIBUTION WIDTH 15.6 % (11.5-14.5)
[2019-03-17 15:55] LABS: HEMOGLOBIN 6.2 g/dL (12.0-18.0)
--- NOTE | 2019-03-17 16:42 | CT ---
Date of service: 03/16/2019 PROCEDURE: CT Abdomen and Pelvis with contrast HISTORY: acute severe abdominal pain, r/o thrombus vs obstr COMPARISON: None. TECHNIQUE: Following oral and intravenous contrast administration, a CT examination of the abdomen and pelvis was performed from the domes of the diaphragms to the symphysis pubis with reformatted datasets provided not only axial but also sagittal and coronal series. Contrast dose: Visipaque 320, 90 cc Radiation dose: Total exam DLP = 282.36 mGy-cm. This CT exam was performed using one or more of the following dose reduction techniques: Automated exposure control, adjustment of the mA and/or kV according to patient size, and/or use of iterative reconstruction technique. FINDINGS: LOWER THORAX: Mild pericardial effusion identified as well as trace left pleural effusion. A catheter tip is identified at the right atrium. LIVER: Unremarkable. No gross lesion or ductal dilatation. GALLBLADDER AND BILE DUCTS: Unremarkable. PANCREAS: Unremarkable. No gross lesion or ductal dilatation. SPLEEN: Unremarkable. ADRENALS: Unremarkable. No mass. KIDNEYS AND URETERS: Right kidney is grossly atrophic with mildly heterogeneous enhancement. No right-sided obstructive uropathy. Left kidney is extremely poorly defined due to extensive hemorrhage at the left retroperitoneal space with an epicenter at the left kidney region. Left perinephric reaction is gross with left pararenal hemorrhage and fluid also present. Active extravasation is appreciate the left renal fossa underlying infection or mass is not excluded here. Trace ascites seen in the right leslie abdomen and pelvis with trace left hemoperitoneum present. Left hand unknown peritoneal space is compressed by the large hemorrhagic collection at the left retroperitoneum and limited left hemoperitoneum as well. There is significant compression of the left psoas muscle. The retroperitoneal hematoma measures at least 9.8 x 5.9 x 20.3 cm (transverse by anteroposterior by superoinferior dimensions) VASCULATURE: Unremarkable. No aortic aneurysm. No aortic atherosclerotic calcification or mural plaque present. BOWEL: Unremarkable. No obstruction. No gross mural thickening. APPENDIX: Normal appendix. PERITONEUM: Unremarkable. No free fluid. No free air. LYMPH NODES: Unremarkable. No enlarged lymph nodes. BLADDER: Urinary bladder is partially decompressed with marked mural thickening suspicious for cystitis. Clinically correlate further. REPRODUCTIVE: Unremarkable. BONES: No acute fracture. OTHER FINDINGS: None. IMPRESSION: There is a large retroperitoneal hematoma with an epicenter at the left kidney region measuring 20.3 cm greatest dimension as discussed above with the left kidney unrecognizable at this time. Active extravasation is appreciated at the superior portions of this collection with limited hemoperitoneum identified including minimally surrounding the liver. Further clinical correlation is advised. Left psoas muscle is significantly compressed by hematoma. Cystitis versus mural hypertrophy bladder (outlet obstruction). Mild left pleural effusion. Pericardial effusion. Preliminary report provided by Dwayne, 03/16/2019, 8:29 p.m..
[2019-03-17] MEDS ORDERED: Labetalol 5mg/ml (4ml) IVP PRN (19:33)
--- NOTE | 2019-03-17 19:37 | CP.PCM.PCO ---
Assessment/Plan - Assessment and Plan (Free Text) Assessment: - I spoke with Dr. Curly Chicas/Urology about the patients transfer to [facility] for further management regarding Left Renal Hematoma/bleeding. He provided me with the transfer center number at [facility], he also spoke with Dr. Medhat Arzola/Urology who will be in consult on the case for this patient after transfer. - Transfer center at [facility] at [place], ([phone]) was called spoke with transfer operator/RN and ICU attending Dr. Nishant Chavez who will get back to us after speaking with Admitting Attending and Urologist by the morning. - ICU Nurse/[facility] was called by transfer operator/RN and patient's face-sheet was faxed to [facility] -Dr. Beau Ortiz, PGY-II Event discussed with Dr. Rodriguez
[2019-03-18 03:12] LABS: BASO # 0.1 K/uL (0.0-0.2); BASO % 0.6 % (0.0-2.0); EOS % 0.1 % (0.0-4.0); HEMOGLOBIN 7.6 g/dL (12.0-18.0); LYMPH # 0.7 K/uL (1.0-4.3); LYMPH % 6.3 % (20.0-40.0); MEAN CELL VOLUME 87.7 fl (80.0-94.0); MEAN CORPUSCULAR HEMOGLOBIN 30.5 pg (27.0-31.0); MEAN CORPUSCULAR HGB CONC 34.8 g/dL (33.0-37.0); MEAN PLATELET VOLUME 8.1 fl (7.2-11.7); MONO # 1.4 K/uL (0.0-0.8); MONO % 12.6 % (0.0-10.0); NEUT % 80.4 % (50.0-75.0); RBC 2.5 Mil/uL (4.40-5.90); RED CELL DISTRIBUTION WIDTH 15.6 % (11.5-14.5); WHITE BLOOD COUNT 11.1 K/uL (4.8-10.8)
[2019-03-18] MEDS: metroNIDAZOLE 500mg/100ml NS 100 ML IVPB SCH ×2 (04:14→13:46)
[2019-03-18 08:05] LABS: BASO # 0.1 K/uL (0.0-0.2); BASO % 0.5 % (0.0-2.0); EOS % 0.2 % (0.0-4.0); HEMOGLOBIN 8.2 g/dL (12.0-18.0); LYMPH # 0.7 K/uL (1.0-4.3); LYMPH % 6.2 % (20.0-40.0); MEAN CELL VOLUME 87.6 fl (80.0-94.0); MEAN CORPUSCULAR HEMOGLOBIN 30.3 pg (27.0-31.0); MEAN CORPUSCULAR HGB CONC 34.6 g/dL (33.0-37.0); MEAN PLATELET VOLUME 8.4 fl (7.2-11.7); MONO # 1.5 K/uL (0.0-0.8); NEUT # 9.1 K/uL (1.8-7.0); NEUT % 80.1 % (50.0-75.0); RBC 2.7 Mil/uL (4.40-5.90); RED CELL DISTRIBUTION WIDTH 15.3 % (11.5-14.5); WHITE BLOOD COUNT 11.4 K/uL (4.8-10.8)
--- NOTE | 2019-03-18 08:06 | CP.PCM.PN ---
Subjective - Date & Time of Evaluation Date of Evaluation: 03/18/19 Time of Evaluation: 09:00 - Subjective Subjective: Patient seen and examined at bedside. Reports left lower quadrant/flank pain persists. Denies SOB, headache, chest pain or dizziness. Reports he is aware of the plan to transfer for surgical intervention of left renal hematoma. Patient jacqueline weeks with plan. Patient tachycardic this AM with uncontrolled hypertension. Objective - Vital Signs/Intake and Output Vital Signs (last 24 hours): Temp Pulse Resp BP Pulse Ox 99.6 F 103 H 19 178/89 H 96 03/18/19 06:17 03/18/19 06:17 03/18/19 06:17 03/18/19 06:17 03/18/19 06:00 Intake and Output: 03/18/19 03/18/19 06:59 18:59 Intake Total 2978 Output Total 2100 Balance 878 - Medications Medications: Current Medications Amlodipine Besylate (Norvasc) 5 mg PO DAILY [facility] Bacitracin (Bacitracin Oint) 1 applic TOP TID [facility] Last Admin: 03/17/19 16:39 Dose: Not Given Carvedilol (Coreg) 12.5 mg PO Q12 [facility] Clonidine HCl (Catapres) 0.2 mg PO BID [facility] Doxercalciferol (Hectorol) 4 mcg IV MWF [facility] Last Admin: 03/16/19 13:44 Dose: 4 mcg Hydralazine HCl (Apresoline) 50 mg PO TID [facility] Vancomycin HCl 750 mg/ Sodium (Chloride) 250 mls @ 166.667 mls/hr IVPB Q24H [facility]; Protocol Last Admin: 03/17/19 20:09 Dose: 166.667 mls/hr Piperacillin Sod/Tazobactam (Sod 2.25 gm/ Sodium Chloride) 100 mls @ 100 mls/hr IVPB Q8H [facility]; Protocol Last Admin: 03/18/19 04:13 Dose: 100 mls/hr Metronidazole (Flagyl 500mg/100ml Ns) 100 mls @ 100 mls/hr IVPB Q8H [facility]; Protocol Last Admin: 03/18/19 04:14 Dose: 100 mls/hr Labetalol HCl (Trandate) 20 mg IVP Q4H PRN PRN Reason: Systolic Blood Pressure Last Admin: 03/17/19 20:08 Dose: 20 mg Morphine Sulfate (Morphine) 2 mg IVP Q6 PRN PRN Reason: Pain, moderate (4-7) Last Admin: 03/18/19 06:27 Dose: 2 mg Pantoprazole Sodium (Protonix Ec Tab) 40 mg PO DAILY [facility] Last Admin: 03/17/19 13:01 Dose: 40 mg Sevelamer Carbonate (Renvela) 2,400 mg PO TID [facility] Last Admin: 03/17/19 16:39 Dose: 2,400 mg - Labs Labs: 03/18/19 03:00 03/17/19 05:21 PT 12.9 Seconds (9.8-13.1) 03/16/19 21:35 INR 1.1 03/16/19 21:35 APTT 40.9 Seconds (25.6-37.1) H 03/16/19 21:35 - Constitutional Appears: No Acute Distress - Head Exam Head Exam: ATRAUMATIC - Eye Exam Eye Exam: EOMI - ENT Exam ENT Exam: Mucous Membranes Moist - Respiratory Exam Respiratory Exam: NORMAL BREATHING PATTERN - Cardiovascular Exam Cardiovascular Exam: Tachycardia, +S1, +S2 - GI/Abdominal Exam GI & Abdominal Exam: Tenderness (and palpable hematoma LLQ area, ecchymosis LLQ area), Normal Bowel Sounds. absent: Guarding - Extremities Exam Extremities Exam: Full ROM. absent: Calf Tenderness, Pedal Edema - Neurological Exam Neurological Exam: Alert, Awake, Oriented x3 - Psychiatric Exam Psychiatric exam: Normal Affect, Normal Mood - Skin Skin Exam: Dry, Warm Assessment and Plan - Assessment and Plan (Free Text) Assessment: 33 yr old M with PMHx ESRD on HD, non compliant, was off HD for 2 months, admitted for hypertensive urgency and metacolic acidosis secondary to ESRD, fluid overload and anemia of chronic disease. Awaiting hemodialysis placement in the community. Hemodialysis sessions scheduled 3 times a week as patients kidney function did not tolerate less sessions at this time. Yesterday evening patient experienced acute onset severe LLQ pain with hypotension, leukocytosis and worsening anemia, abd/pelvis CT showed large left renal hematoma with extravasation of contrast into hematoma/renal parenchyma. Urology and IR consulted. Patient underwent transfusion of pRBC's and FFP, had elective embolization of renal artery. Plan to day is for transfer to [facility] for further possible surgical intervention. 1. Anemia of blood loss secondary to Active retroperitoneal bleed -acute, s/p renal artery embolization yesterday -03/16/19 ABd/Pelvis CT : large left renal and perinephric hematoma with extravasation of contrast into hematoma/renal parenchyma. -s/p transfusion 5 units pRBC's, 2 units FFP, DDAVP on 03/17/19 -Hgb 7.6 and repeat 8.2 this AM -will transfuse 1 unit pRBC's -Urology consult: Dr. Melchor: if not stable with embolization, transfer to tertiary center, occult tumor cannot be ruled out -IR Dr. Johnson: renal artery embolization performed yesterday -f/u repeat CBC, CMP -transfer to tele, continue cardiac monitoring 2. ESRD on HD -scheduled HD MWF (right chest permacath in place) -awaiting outpatient HD placement -patient has AV shunt placed in left arm (placement done in [facility], has not yet matured) -Nephro on board: Renvela 2,400 mg PO TID, continue with Hectorol; -Dr. Perdomo resume HD 3x a week, had additional HD session yesterday -renal diet -f/u BMP 3. Left lower quadrant abdominal pain -acute, secondary to large left renal hematoma -IR performed left renal artery embolization -Hepatitis panel negative 03/07/19 -pain management 4. Hypertension -chronic, uncontrolled -resume medications (hydralazine 50mg PO BID, coreg 12.5mg PO Q12 and clonidine 0.2mg PO BID, amlodipine 5mg PO QD) -monitor BP and adjust dose further PRN 5. UTI-enterococcus faecalis -treatment completed (Amoxicillin PO) -f/u repeat UA, UCx 6. DVT prophylaxis -SCD's (acute retroperitoneal bleed)
[2019-03-18 08:16] LABS: ALB/GLOB RATIO 1.5 (1.0-2.1); ALBUMIN 4.1 g/dL (3.5-5.0); CALCIUM 8.5 mg/dL (8.4-10.2)
[2019-03-18] MEDS: Pantoprazole 40 mg EC Tab PO SCH (08:47)
[2019-03-18] MEDS: Bacitracin OINT 15GM TOP SCH ×3 (08:49→16:36)
--- NOTE | 2019-03-18 08:58 | CP.CCUPN ---
CCU Subjective - Physician Review Subjective (Free Text): Awake and alert, still has Left- sided mid-lower quadrant abdominal discomfort. Denies any N/V, headaches, SOB. Underwent HD last evening, 2000ml ultrafiltrated. Afebrile, temps mostly 98-99F, no fever spikes, no arrhythmias noted. SBP 150- 190s, HR 100s, RR= 19, 96% SPo2 on RA. ROS: No other pertinent negs or positives on 10+ system review. PMSFH: All other Nursing and physician documentation reviewed to date; no new pertinent info noted relevant to current medical problems. EXAM- HEENT: no icterus, no gaze preference, pupils equal and reactive 3 mm size, no nystagmus. NECK: supple, no visible JVD, no adenopathy, thyroid non- palpable. CHEST: decreased BS at the bases, no wheezes audible bilaterally. R SC permacath HEART: regular, distant, tachy S1S2, no rubs or murmurs noted ABD: soft, no tympany, no fluid wave, no guarding or focal tenderness; BS hypoactive. EXT: no edema, no calf tenderness or palpable cords, distal pulses intact and symmetrical. NEURO: no gross focal motor deficits. SKIN: no rashes, warm and dry LABS: WBC= 11.1 HGB= 6.2 to 7.6, now 8.2 PLTs= 75K PTT= 40.9 on 03/16/19 Na= 135 K= 4.4 CL= 97 HCO3= 25 BUN/Cr= 39/7.2 BS= 98 CTAP results reviewed with Urology. IMPRESSION / MAJOR PROBLEMS NOW: 1. Left Renal Pelvis Hematoma, r/o Occult tumor 2. s/p Hypotension / Hypovolemic Shock, 2 Acute Anemia, doubt Severe Sepsis/ shock physiology 3. Acute Anemia with coagulopathy 4. Hyperkalemia and ESRD on HD 5. s/p Accelerated Hypotension PLAN: 1. s/p 5 units PRBCs yesterday, HGb slowly increasing, Platelets still low. 2. Arrangements for tertiary hospital transfer for further definitive mgmt of left retroperitoneal hematoma. Left kidney not visualizable on CT AP. 3. Resume anti-HTN meds. 4. Check repeat coags, Heparin SC on hold for now.
[2019-03-18 13:31] VITALS: RESP 18
[2019-03-18 16:28] VITALS: O2SAT 96
[2019-03-18 16:53] LABS: BASO # 0.1 K/uL (0.0-0.2); BASO % 0.5 % (0.0-2.0); EOS # 0.1 K/uL (0.0-0.7); EOS % 0.8 % (0.0-4.0); HEMOGLOBIN 8.3 g/dL (12.0-18.0); LYMPH # 1.1 K/uL (1.0-4.3); LYMPH % 9.4 % (20.0-40.0); MEAN CELL VOLUME 88.2 fl (80.0-94.0); MEAN CORPUSCULAR HEMOGLOBIN 30.4 pg (27.0-31.0); MEAN CORPUSCULAR HGB CONC 34.5 g/dL (33.0-37.0); MEAN PLATELET VOLUME 8.1 fl (7.2-11.7); MONO # 1.6 K/uL (0.0-0.8); MONO % 14.3 % (0.0-10.0); NEUT # 8.5 K/uL (1.8-7.0); RBC 2.72 Mil/uL (4.40-5.90); RED CELL DISTRIBUTION WIDTH 15.1 % (11.5-14.5); WHITE BLOOD COUNT 11.3 K/uL (4.8-10.8)
[2019-03-18] MEDS ORDERED: Epoetin Alfa 4000 UNIT/ML Inj IV ONE (18:46)
[2019-03-18 20:16] VITALS: BP 125/66; PULSE 92; TEMP 100.5
[2019-03-19] MEDS ORDERED: Epoetin Alfa 20000 UNIT/ML Inj SC SCH (09:00)
--- NOTE | 2019-03-20 16:45 | CP.PCM.DIS ---
Provider - Provider Date of Admission: 02/03/19 20:21 Attending physician: Eden Mai MD Consults: 02/03/19 20:58 Nephrology Consult Stat Comment: Consulting Provider: Indy Perdomo Consulting Physician: Indy Perdomo Reason for Consult: NEPHROLOGY 02/06/19 04:41 Social Work Referral Routine Comment: Hemodialysis Patient, discharge planning. Physician Instructions: Reason For Exam: Hemodialysis Patient, discharge planning. 02/09/19 08:55 Gastroenterology Consult Routine Comment: Consulting Provider: Sukh Altamirano Consulting Physician: Sukh Altamirano Reason for Consult: occult blood + with anemia 03/16/19 21:23 Urology Consult Routine Comment: Consulting Provider: Sukh Melchor Jr. Consulting Physician: Sukh Melchor Jr. Reason for Consult: Large renal and perinephric hematoma 03/17/19 07:17 Physician Consult Routine Comment: large left renal and preinephric hematoma with ext Consulting Provider: Gustavo Guerra Consulting Physician: Gustavo Guerra Reason for Consult: hematoma extends into iliopsoas muscle/inferiorly up to the pelvis Time Spent in preparation of Discharge (in minutes): 30 Diagnosis - Discharge Diagnosis (1) Active bleeding Status: Acute Priority: High (2) Renal hematoma, left Status: Acute Priority: High (3) Anemia Status: Chronic Priority: High (4) ESRD (end stage renal disease) Status: Chronic Priority: Medium (5) Hypertensive emergency Status: Resolved Priority: Low (6) Hypertension Status: Chronic Priority: Low Hospital Course - Lab Results Lab Results: Micro Results 03/18/19 19:02 Naris MRSA Culture (Admit) - Final MRSA NOT DETECTED 03/16/19 18:53 Blood Blood Culture - Preliminary NO GROWTH AFTER 3 DAYS 03/16/19 18:43 Blood Blood Culture - Preliminary NO GROWTH AFTER 3 DAYS 02/09/19 21:23 Urine,Clean Catch Urine Culture - Final No Growth (<1,000 CFU/ML) 02/03/19 18:14 Blood-Venous Blood Culture - Final NO GROWTH AFTER 5 DAYS 02/03/19 18:14 Blood-Venous Gram Stain - Final TEST NOT PERFORMED 02/03/19 18:17 Blood-Venous Blood Culture - Final NO GROWTH AFTER 5 DAYS 02/03/19 18:17 Blood-Venous Gram Stain - Final TEST NOT PERFORMED 02/03/19 21:00 Urine,Clean Catch Urine Culture - Final Enterococcus Faecalis Most Recent Lab Values WBC 11.3 K/uL (4.8-10.8) H 03/18/19 16:30 RBC 2.72 Mil/uL (4.40-5.90) L 03/18/19 16:30 Hgb 8.3 g/dL (12.0-18.0) L 03/18/19 16:30 Hct 24.0 % (35.0-51.0) L 03/18/19 16:30 MCV 88.2 fl (80.0-94.0) 03/18/19 16:30 MCH 30.4 pg (27.0-31.0) 03/18/19 16:30 MCHC 34.5 g/dL (33.0-37.0) 03/18/19 16:30 RDW 15.1 % (11.5-14.5) H 03/18/19 16:30 Plt Count 77 K/uL (130-400) L 03/18/19 16:30 MPV 8.1 fl (7.2-11.7) 03/18/19 16:30 Neut % (Auto) 75.0 % (50.0-75.0) 03/18/19 16:30 Lymph % (Auto) 9.4 % (20.0-40.0) L 03/18/19 16:30 Band[place] % (Auto) 14.3 % (0.0-10.0) H 03/18/19 16:30 Eos % (Auto) 0.8 % (0.0-4.0) 03/18/19 16:30 Baso % (Auto) 0.5 % (0.0-2.0) 03/18/19 16:30 Neut # (Auto) 8.5 K/uL (1.8-7.0) H 03/18/19 16:30 Lymph # (Auto) 1.1 K/uL (1.0-4.3) 03/18/19 16:30 Bandera # (Auto) 1.6 K/uL (0.0-0.8) H 03/18/19 16:30 Eos # (Auto) 0.1 K/uL (0.0-0.7) 03/18/19 16:30 Baso # (Auto) 0.1 K/uL (0.0-0.2) 03/18/19 16:30 Neutrophils % (Manual) 85 % (42-75) H 03/17/19 05:21 Band Neutrophils % 2 % (0-2) 03/17/19 05:21 Lymphocytes % (Manual) 8 % (20-50) L 03/17/19 05:21 Monocytes % (Manual) 5 % (0-10) 03/17/19 05:21 Platelet Estimate Normal (NORMAL) 03/17/19 05:21 Plt Clumps, EDTA Present 02/03/19 18:17 Large Platelets Present 03/17/19 05:21 RBC Morphology Normal (NORMAL) 02/03/19 18:17 Hypochromasia (manual) Slight 03/17/19 05:21 Anisocytosis (manual) Slight 03/17/19 05:21 Haptoglobin 97.4 mg/dL (30.0-200.0) 02/05/19 16:55 PT 12.9 Seconds (9.8-13.1) 03/16/19 21:35 INR 1.1 03/16/19 21:35 APTT 40.9 Seconds (25.6-37.1) H 03/16/19 21:35 pCO2 33 mm/Hg (35-45) L 03/16/19 19:37 pO2 94 mm/Hg (80-100) 03/16/19 19:37 HCO3 22.7 mmol/L (21-28) 03/16/19 19:37 ABG pH 7.41 (7.35-7.45) 03/16/19 19:37 ABG Total CO2 21.9 mmol/L (22-28) L 03/16/19 19:37 ABG O2 Saturation 98.5 % (95-98) H 03/16/19 19:37 ABG O2 Content 11.9 ML/dL (15-23) L 02/03/19 19:25 ABG Base Excess -2.9 mmol/L (-2.0-3.0) L 03/16/19 19:37 ABG Hemoglobin 8.7 g/dL (11.7-17.4) L 02/03/19 19:25 ABG Carboxyhemoglobin 2.0 % (0.5-1.5) H 02/03/19 19:25 POC ABG HHb (Measured) 0.2 % (0.0-5.0) 02/03/19 19:25 ABG Methemoglobin 1.4 % (0.0-3.0) 02/03/19 19:25 ABG O2 Capacity 11.9 mL/dL (16-24) L 02/03/19 19:25 [place] Test Yes 03/16/19 19:37 ABG Potassium 5.0 mmol/L (3.6-5.2) 03/16/19 19:37 VBG pH 7.15 (7.32-7.43) L* 02/03/19 18: VBG pCO2 31 mmHg (40-60) L 02/03/19 18: VBG HCO3 9.9 mmol/L 02/03/19 18: VBG Total CO2 11.8 mmol/L (22-28) L 02/03/19 18:19 VBG O2 Sat (Calc) 44.9 % (40-65) 02/03/19 18:19 VBG Base Excess -16.8 mmol/L (0.0-2.0) L 02/03/19 18:19 VBG Potassium 5.3 mmol/L (3.6-5.2) H 02/03/19 18:19 A-a O2 Difference 14.0 mm/Hg 03/16/19 19:37 Hgb O2 Saturation 96.4 % (95.0-98.0) 02/03/19 19:25 Sodium 133.0 mmol/L (132-148) 03/16/19 19:37 Chloride 101.0 mmol/L (98-107) 03/16/19 19:37 Glucose 168 mg/dL (75-110) H 03/16/19 19:37 Lactate 3.8 mmol/L (0.7-2.1) H 03/16/19 19:37 FiO2 21.0 % 03/16/19 19:37 Blood Gas Comments Lac=3.8 03/16/19 19:37 Crit Value Called To eden Jarrell 03/16/19 19:37 Crit Value Called By 22 03/16/19 19:37 Crit Value Read Back Y 03/16/19 19:37 Blood Gas Notified Time 194203/16/19 19:37 Sodium 135 mmol/l (132-148) 03/18/19 07:39 Potassium 4.4 MMOL/L (3.6-5.0) 03/18/19 07:39 Chloride 97 mmol/L (98-107) L 03/18/19 07:39 Carbon Dioxide 25 mmol/L (22-30) 03/18/19 07:39 Anion Gap 17 (10-20) 03/18/19 07:39 BUN 39 mg/dl (9-20) H 03/18/19 07:39 Creatinine 7.2 mg/dl (0.8-1.5) H 03/18/19 07:39 Est GFR ( Amer) 11 03/18/19 07:39 Est GFR (Non-Af Amer) 9 03/18/19 07:39 POC Glucose (mg/dL) 97 mg/dL (65-110) 02/03/19 18:00 Random Glucose 98 mg/dL (75-110) 03/18/19 07:39 Serum Osmolality 299 mosm/kg (272-300) 02/15/19 14:27 Lactic Acid 4.6 mmol/L (0.7-2.1) H* 03/16/19 19:20 Calcium 8.5 mg/dL (8.4-10.2) 03/18/19 07:39 Phosphorus 8.6 mg/dl (2.5-4.5) H 03/14/19 14:15 Magnesium 2.4 MG/DL (1.6-2.3) H 02/03/19 18:17 Iron 72 ug/dL (49-181) 02/15/19 14:27 TIBC 281 ug/dL (250-450) 02/15/19 14:27 % Saturation 26 % (20-55) 02/15/19 14:27 Ferritin 797.0 ng/Ml (17.9-464) H 03/18/19 20:21 Total Bilirubin 0.9 mg/dl (0.2-1.3) 03/18/19 07:39 AST 52 U/L (17-59) 03/18/19 07:39 ALT 64 U/L (21-72) 03/18/19 07:39 Alkaline Phosphatase 55 U/L (38-126) 03/18/19 07:39 Ammonia 15 umol/L (9-33) 02/03/19 18:17 Lactate Dehydrogenase 1097 U/L (313-618) H 02/03/19 18:17 Troponin I 0.0980 ng/mL (0.00-0.120) 02/03/19 18:17 NT-Pro-B Natriuret Pep > 902467 pg/ml (0-450) H 02/03/19 18:17 Total Protein 6.8 G/DL (6.3-8.2) 03/18/19 07:39 Albumin 4.1 g/dL (3.5-5.0) 03/18/19 07:39 Globulin 2.8 gm/dL (2.2-3.9) 03/18/19 07:39 Albumin/Globulin Ratio 1.5 (1.0-2.1) 03/18/19 07:39 Triglycerides 97 mg/DL (0-149) D 02/15/19 14:27 Cholesterol 164 mg/dL (0-199) 02/15/19 14:27 LDL Cholesterol Direct 70 mg/dL (0-129) 02/15/19 14:27 HDL Cholesterol 65 MG/DL (30-70) 02/15/19 14:27 Amylase 167 U/L (30-110) H 03/16/19 17:41 Lipase 222 U/L (23-300) 03/16/19 17:41 Vitamin B12 731 pg/mL (239-931) 02/04/19 08:50 Folate > 20.0 ng/mL 02/04/19 08:50 TSH 3rd Generation 3.29 mIU/ML (0.46-4.68) 02/04/19 08:50 PTH Intact Whole Molec 182 pg/mL (14-64) H 03/14/19 14:15 Calcium (PTH Intact) 8.5 mg/dL (8.6-10.3) L 03/15/19 14:15 PTH w/Ion &Tot Calcium 197 pg/mL (14-64) H 03/15/19 14:15 Cortisol AM Sample 8.9 ug/dL (4.46-22.7) 02/15/19 14:27 Arterial Blood Potassium 5.0 mmol/L (3.6-5.2) 03/16/19 19:37 Venous Blood Potassium 5.3 mmol/L (3.6-5.2) H 02/03/19 18:19 Urine Color Yellow (YELLOW) 02/03/19 21:00 Urine Clarity Slighty-cloudy (Clear) 02/03/19 21:00 Urine pH 8.0 (5.0-8.0) 02/03/19 21:00 Ur Specific [place] 1.014 (1.003-1.030) 02/03/19 21:00 Urine Protein >=500 mg/dL (NEGATIVE) 02/03/19 21:00 Urine Glucose (UA) 50 mg/dL (NEGATIVE) 02/03/19 21:00 Urine Ketones Negative mg/dL (NEGATIVE) 02/03/19 21:00 Urine Blood Moderate (NEGATIVE) 02/03/19 21:00 Urine Nitrate Negative (NEGATIVE) 02/03/19 21:00 Urine Bilirubin Negative (NEGATIVE) 02/03/19 21:00 Urine Urobilinogen 0.2-1.0 mg/dL (0.2-1.0) 02/03/19 21:00 Ur Leukocyte Esterase Trace Juanita/uL (Negative) 02/03/19 21:00 Urine RBC (Auto) 81 /hpf (0-3) H 02/03/19 21:00 Urine Microscopic WBC 49 /hpf (0-5) H 02/03/19 21:00 Ur Squamous Epith Cells 1 /hpf (0-5) 02/03/19 21:00 Urine Osmolality 150 mosm/kg (300-1000) L 02/14/19 22:56 Stool Occult Blood Positive (NEGATIVE) H 02/03/19 19:35 Alcohol, Quantitative < 10 mg/dl (0-10) 02/03/19 18:17 Heparin-induced Plt Ab Negative (Negative) 03/16/19 16:20 HIPA Patient OD 0.075 03/16/19 16:20 Hep Bs Antigen Negative (NEGATIVE) 03/07/19 11:00 Hep Bs Antibody, Quant <5 mIU/mL (>or=10) L 03/07/19 11:00 Hep B Core IgM Ab Negative (NEGATIVE) 03/07/19 11:00 Hepatitis C Antibody Negative (NEGATIVE) 02/04/19 08:50 Blood Type O POSITIVE 03/17/19 07:33 Blood Type Confirm O POSITIVE 02/03/19 18:15 Antibody Screen Negative 03/17/19 07:33 Crossmatch See Detail 03/17/19 07:33 BBK History Checked Patient has bt 03/17/19 07:33 - Hospital Course Hospital Course: 33 yr old M with PMHx ESRD on HD, non compliant, was off HD for 2 months, admitted for hypertensive urgency and metacolic acidosis secondary to ESRD, fluid overload and anemia of chronic disease. Hemodialysis sessions scheduled 3 times a week as patients kidney function did not tolerate less sessions at this time. Patient developed acute onset severe LLQ pain with hypotension, leukocytosis and worsening anemia, abd/pelvis CT showed large spontaneous left renal hematoma with extravasation of contrast into hematoma/renal parenchyma. Hemoglobin acutely dropped from 11.3 to 6.2 g/dL. Urology and IR were consulted. Patient underwent transfusion of 7 units pRBC's and 2 units FFP, had elective embolization of renal artery. Recommendation from urology is for left nephrectomy as patient may continue to bleed. Patient is stable for transfer to [facility] for further intervention, accepting physician is Samantha Huston, will accept the admission for a telemetry bed ([phone]). She will touch base with urologist who will be on consult there: Medhat Wesley ([phone]). Patient is aware of the plan and agrees. - Date & Time of H&P Date of H&P: 02/03/19 Time of H&P: 20:56 Discharge Exam - Head Exam Head Exam: ATRAUMATIC - Eye Exam Eye Exam: EOMI - ENT Exam ENT Exam: Mucous Membranes Moist - Respiratory Exam Respiratory Exam: NORMAL BREATHING PATTERN. absent: Respiratory Distress - Cardiovascular Exam Cardiovascular Exam: Tachycardia, +S1, +S2 - GI/Abdominal Exam GI & Abdominal Exam: Normal Bowel Sounds, Soft, Tenderness (LLQ, moderate, firm LLQ) - Extremities Exam Extremities exam: full ROM - Neurological Exam Neurological exam: Alert, CN II-XII Intact, Oriented x3 - Psychiatric Exam Psychiatric exam: Normal Affect, Normal Mood - Skin Skin Exam: Dry, Warm Discharge Plan - Follow Up Plan Condition: GUARDED Disposition: Trans to Other Acute Care Hosp Instructions: End Stage Kidney Disease (DC), Dialysis and Diet Additional Instructions: hacer clair con mcknight doctor primario y nefrologo dentro de 1 semana Referrals: Indy Perdomo MD [Staff Provider] - Sukh Altamirano MD, PhD [Staff Provider] -
--- NOTE | 2019-03-28 08:21 | VASCULAR ---
Indication: Left renal/retroperitoneal hemorrhage History: End-stage renal disease. Comparison: Comparison is made to CT abdomen and pelvis with IV contrast from 03/16/2019. Anesthesia: Local lidocaine. Procedure and findings: Informed consent was obtained from the patient. Patient was positioned supine on the angiographic table. The right groin region was prepped and draped in the usual sterile techniques. Sterile ultrasound gel and cover were used. Initial ultrasonography of the right groin demonstrated a patent right common femoral artery. 2 percent lidocaine was used to anesthetize the skin and the underlying soft tissues. Using ultrasound guidance, the right common femoral artery was accessed and using exchange wire technique, a 5 Lao vascular sheath was introduced. Using a reversed curve angiographic catheter, the left renal artery was accessed. Initial angiograms demonstrated large hematoma on the left and multiple bleeding sites particularly involving the lower pole. A 2.8 Lao microcatheter was introduced into the lower pole arteries. Subsequently, 700-900 micron embospheres were used to embolize the lower pole branches. Repeat angiogram demonstrated persistent contrast extravasation. At this point, it was decided to selectively embolized the bleeding vessels. Anterior and posterior branches of the lower pole were separately selected and call embolizations were performed using 3 millimeter and 4 millimeter metallic coils. Repeat angiogram was performed demonstrating persistent opacification of the kidney however, there was mild persistent contrast opacification. At this point, repeat embolization was performed from a more proximal branch using 700-900 microns. Approximately 2 mL of embospheres were injected. Subsequently, a final angiogram was performed which demonstrated opacification of the renal arteries without any evidence of contrast extravasation. The catheter and sheath were removed and hemostasis was achieved with manual compression. There was no evidence of hematoma once hemostasis was achieved. The patient tolerated the procedure well without any adverse events. Postprocedure, the case was discussed with Dr. Rodriguez. Impression: Successful fluoroscopic guided coil and particle embolization of the branches of the left kidney. Patient tolerated the procedure well. No adverse events noted.
== END 2019-03-18 20:20 | disposition short-term general hospital (02) | DRG 447 ==
LOC: H.ER 17:01 → H.ERHOLD 20:21 → H.TEL 22:23 → H.MEDSURG1 02-05 18:14 → H.TEL 03-16 19:47 → H.ICU/CCU 03-17 11:13
PROVIDERS: ADMIT Internal Medicine; ATTEND Internal Medicine
PROC: 5A1D70Z Performance of Urinary Filtration, Intermittent, Less than 6 Hours Per Day (ICD-10-PCS; 2019-02-04)
PROC: 5A1D70Z Performance of Urinary Filtration, Intermittent, Less than 6 Hours Per Day (ICD-10-PCS; 2019-02-05)
PROC: 30233N1 Transfusion of Nonautologous Red Blood Cells into Peripheral Vein, Percutaneous Approach (ICD-10-PCS; 2019-02-06)
PROC: 5A1D70Z Performance of Urinary Filtration, Intermittent, Less than 6 Hours Per Day (ICD-10-PCS; 2019-02-06)
PROC: 5A1D70Z Performance of Urinary Filtration, Intermittent, Less than 6 Hours Per Day (ICD-10-PCS; 2019-02-08)
PROC: 5A1D70Z Performance of Urinary Filtration, Intermittent, Less than 6 Hours Per Day (ICD-10-PCS; 2019-02-10)
PROC: 5A1D70Z Performance of Urinary Filtration, Intermittent, Less than 6 Hours Per Day (ICD-10-PCS; 2019-02-13)
PROC: 5A1D70Z Performance of Urinary Filtration, Intermittent, Less than 6 Hours Per Day (ICD-10-PCS; 2019-02-15)
PROC: 5A1D70Z Performance of Urinary Filtration, Intermittent, Less than 6 Hours Per Day (ICD-10-PCS; 2019-02-17)
PROC: 5A1D70Z Performance of Urinary Filtration, Intermittent, Less than 6 Hours Per Day (ICD-10-PCS; 2019-02-20)
PROC: 5A1D70Z Performance of Urinary Filtration, Intermittent, Less than 6 Hours Per Day (ICD-10-PCS; 2019-02-22)
PROC: 5A1D70Z Performance of Urinary Filtration, Intermittent, Less than 6 Hours Per Day (ICD-10-PCS; 2019-02-24)
PROC: 5A1D70Z Performance of Urinary Filtration, Intermittent, Less than 6 Hours Per Day (ICD-10-PCS; 2019-02-27)
PROC: 5A1D70Z Performance of Urinary Filtration, Intermittent, Less than 6 Hours Per Day (ICD-10-PCS; 2019-03-01)
PROC: 5A1D70Z Performance of Urinary Filtration, Intermittent, Less than 6 Hours Per Day (ICD-10-PCS; 2019-03-03)
PROC: 5A1D70Z Performance of Urinary Filtration, Intermittent, Less than 6 Hours Per Day (ICD-10-PCS; 2019-03-05)
PROC: 5A1D70Z Performance of Urinary Filtration, Intermittent, Less than 6 Hours Per Day (ICD-10-PCS; 2019-03-07)
PROC: 5A1D70Z Performance of Urinary Filtration, Intermittent, Less than 6 Hours Per Day (ICD-10-PCS; 2019-03-09)
PROC: 5A1D70Z Performance of Urinary Filtration, Intermittent, Less than 6 Hours Per Day (ICD-10-PCS; 2019-03-12)
PROC: 5A1D70Z Performance of Urinary Filtration, Intermittent, Less than 6 Hours Per Day (ICD-10-PCS; 2019-03-16)
PROC: 30233K1 Transfusion of Nonautologous Frozen Plasma into Peripheral Vein, Percutaneous Approach (ICD-10-PCS; principal; 2019-03-17)
PROC: 5A1D70Z Performance of Urinary Filtration, Intermittent, Less than 6 Hours Per Day (ICD-10-PCS; 2019-03-17)
PROC: 04VA3DZ Restriction of Left Renal Artery with Intraluminal Device, Percutaneous Approach (ICD-10-PCS; 2019-03-17)
DX: I12.0 Hypertensive chronic kidney disease with stage 5 chronic kidney disease or end stage renal disease (principal); K66.1 Hemoperitoneum; J90 Pleural effusion, not elsewhere classified; N18.6 End stage renal disease; D68.9 Coagulation defect, unspecified; E87.2 Acidosis; I31.3 Pericardial effusion (noninflammatory); I95.9 Hypotension, unspecified; I16.1 Hypertensive emergency; D62 Acute posthemorrhagic anemia; E87.1 Hypo-osmolality and hyponatremia; E87.5 Hyperkalemia; S37.012A Minor contusion of left kidney, initial encounter; N39.0 Urinary tract infection, site not specified; B95.2 Enterococcus as the cause of diseases classified elsewhere; D63.1 Anemia in chronic kidney disease; N28.89 Other specified disorders of kidney and ureter; Z99.2 Dependence on renal dialysis; Z91.15 Patient's noncompliance with renal dialysis; Z91.19 Patient's noncompliance with other medical treatment and regimen; F17.210 Nicotine dependence, cigarettes, uncomplicated